=== PATIENT | male | born 1930 | race Caucasian/White ===

== ENCOUNTER 2018-04-13 15:02 | Inpatient (IN) | payer MEDICARE, OTHER ==
[~2018-04-13] VITALS: Ht 167.6 cm; Wt 71.2 kg
[~2018-04-13 15:02] MED LIST: ACET325T33 PO; ASPI-903 PO; BISA-57 PO; CLON-379 PO; CRAN400C PO; DIVA-75 PO; HYDR-3498 PO; LISI-471 PO; MAGN400O19 PO; MEMA5TAB PO; MULT-42 PO; OSCAL PO; TAMS-14 PO
[2018-04-13] MEDS ORDERED: SOD CHLORIDE 0.9% 500 ML IV STA (15:15)
[2018-04-13] MEDS ORDERED: BISA5TAB6 PO (15:42)
[2018-04-13] MEDS ORDERED: MAGN400O19 PO (15:43)
[2018-04-13] MEDS ORDERED: ACET325T33 PO (15:44)
[2018-04-13] MEDS ORDERED: NA P230E RC (15:45)
[2018-04-13] MEDS ORDERED: AMIO100T4 PO (15:46)
[2018-04-13] MEDS ORDERED: AMLO5TAB4 PO (15:48)
[2018-04-13] MEDS ORDERED: MULT-105 PO (15:49)
[2018-04-13] MEDS ORDERED: NITR0.4T32 SL (15:49)
[2018-04-13] MEDS ORDERED: VLP250480 PO ×2 (15:50→15:51)
[2018-04-13] MEDS ORDERED: HYDR50TA3 PO (15:52)
[2018-04-13] MEDS ORDERED: LISI40TA3 PO (15:53)
[2018-04-13] MEDS ORDERED: AMIO200T4 PO (15:54)
[2018-04-13] MEDS ORDERED: ASPI-817 PO (15:55)
[2018-04-13] MEDS ORDERED: CRAN425C6 PO (15:56)
[2018-04-13] MEDS ORDERED: TERA1CAP39 PO (15:57)
[2018-04-13] MEDS ORDERED: SACC250C PO (15:57)
[2018-04-13] MEDS ORDERED: MEMA5TAB PO (16:00)
[2018-04-13] MEDS ORDERED: FURO20TA3 PO (16:00)
[2018-04-13] MEDS ORDERED: CALC1TAB93 PO (16:01)
[2018-04-13] MEDS ORDERED: CEFEPIME 2GM/50 ML (PMX) 50 ML IVPB STA (16:40)
[2018-04-13] MEDS ORDERED: SODIUM CHLORIDE 0.9% 1L BAG IV* STA (16:40)
[2018-04-13] MEDS ORDERED: VANCOMYCIN 1 GM (PMX) 250 ML IVPB ONE (17:00)
[2018-04-13] MEDS ORDERED: SOD CHLORIDE 0.9% 1,000 ML IV SCH (18:12)
--- NOTE | 2018-04-13 18:16 | ERD ---
ER Documentation Chief Complaint Chief Complaint pollo ra from [facility] for aloc, low o2 sat, hypotensive HPI This is a 61 male who was sent from [facility] because he was having decreased mental status, low blood pressure and low O2 sats. However on arrival here the patient's blood pressure and O2 sats are normal. The patient has baseline dementia which is severe. When the ambulance picked him up from the center they stated that he is back to baseline mentally. There is no other history that we know of is far as recent illness cough GI symptoms etc. The patient is unable to give a history ROS All systems reviewed and are negative except as per history of present illness. Medications Home Meds Reported Medications Calcium Carbonate/Vitamin D3 (OYSTER SHELL 500 MG + VIT D TB) 1 Each Tablet, 1 EACH PO Q5PM, TAB 04/13/18 Memantine* (Namenda*) 5 Mg Tablet, 5 MG PO BID, #60 TAB 04/13/18 Furosemide* (Furosemide*) 20 Mg Tablet, 10 MG PO Q9AM, #60 TAB 04/13/18 Terazosin Hcl* (Hytrin*) 1 Mg Cap, 1 MG PO HS, CAP 04/13/18 Saccharomyces Boulardii* (Florastor*) 250 Mg Cap, 250 MG PO BID, CAP 04/13/18 Cranberry Extract (Cranberry) 425 Mg Capsule, 425 MG PO Q9AM, CAP 04/13/18 Aspirin* (Aspirin* EC) 81 Mg Tablet.dr, 81 MG PO DAILY, TAB 04/13/18 Amiodarone Hcl* (Amiodarone Hcl*) 200 Mg Tablet, 200 MG PO QAM, #30 TAB HOLD IF HR<60 04/13/18 Lisinopril* (Lisinopril*) 40 Mg Tablet, 40 MG PO DAILY, #30 TAB HOLD IF SBP<120 AND HR<60 04/13/18 Hydrochlorothiazide* (Hydrochlorothiazide*) 50 Mg Tab, 50 MG PO DAILY, #30 TAB 04/13/18 Valproic Acid* (Valproic Acid* Liq) 250 Mg/5 Ml Syrup, 5 ML PO Q9PM, ML 04/13/18 Valproic Acid* (Valproic Acid* Liq) 250 Mg/5 Ml Syrup, 2.5 ML PO Q9AM, ML 04/13/18 Nitroglycerin* (Nitroglycerin* SL) 0.4 Mg Tab.subl, 0.4 MG SL Q5MIN PRN for CHEST PAIN, BOTTLE 04/13/18 Multivitamin with Minerals (Multivitamins with Minerals) 1 Each Tablet, 1 EACH PO Q9AM, TAB 04/13/18 Amlodipine Besylate* (Norvasc*) 5 Mg Tablet, 5 MG PO Q9AM, TAB HOLD IF SBP<118 04/13/18 Amiodarone Hcl* (Amiodarone Hcl*) 100 Mg Tablet, 100 MG PO QHS, #30 TAB HOLD IF HR<60 04/13/18 Na Phos,M-B/Na Phos,Di-Ba (Fleet Enema Extra) 230 Ml Enema, 230 ML RC NEEDED, ENEMA 04/13/18 Acetaminophen* (Tylenol*) 325 Mg Tablet, 650 MG PO Q4H PRN for MILD PAIN LEVEL 1-3, TAB AND FEVER>100F 04/13/18 Magnesium Hydroxide* (Milk Of Magnesia*) 400 Mg/5 Ml Oral.susp, 30 ML PO QHS PRN for NEEDED, ML 04/13/18 Bisacodyl* (Bisacodyl*) 5 Mg Tablet.dr, 10 MG PO DAILY PRN for CONSTIPATION, TAB 04/13/18 Discontinued Reported Medications Acetaminophen* (Tylenol*) 325 Mg Tablet, 650 MG PO Q4H PRN for MILD PAIN LEVEL 1 -3, TAB 02/23/14 Magnesium Hydroxide* (Milk Of Magnesia*) 400 Mg/5 Ml Oral.susp, 30 ML PO QHS, ML 02/23/14 Hydrocodone Bit-Acetaminophen* ([place]*) 5-325 Mg Tab, 1 TAB PO Q4H PRN for PAIN, TAB 02/23/14 Bisacodyl* (Dulcolax*) 5 Mg Tablet.dr, 10 MG PO EVERY 2 DAYS PRN for CONSTIPATION, TAB 02/23/14 Clonidine Hcl* (Clonidine Hcl*) 0.1 Mg Tab, 0.1 MG PO Q6 PRN for ELEVATED SYSTOLIC BP, TAB 02/23/14 Divalproex Sodium* (Depakote ER*) 500 Mg Tabsr, 1000 MG PO DAILY, TAB.SA 02/23/14 Multivits, W-Ca,Fe,Oth Min* (Therapeutic M*) 1 Tab Tablet, 1 TAB PO DAILY, TAB 02/23/14 Calcium/Vitamin D (Oyster Shell W/Vit D) 1 Tab Tab, 1 TAB PO DAILY, TAB 02/23/14 Memantine* (Namenda*) 5 Mg Tablet, 5 MG PO BID, TAB 02/23/14 Lisinopril* (Lisinopril*) 20 Mg Tablet, 20 MG PO DAILY, TAB 02/23/14 Tamsulosin Hcl* (Flomax*) 0.4 Mg Cap.er.24h, 0.4 MG PO HS, CAP 02/23/14 Cranberry (Cranberry) 400 Mg Capsule, 405 MG PO DAILY, CAP 02/23/14 Clonidine Hcl* (Clonidine Hcl*) 0.1 Mg Tab, 0.1 MG PO BID, TAB 02/23/14 Aspirin* (Aspirin* Chew) 81 Mg Tab.chew, 81 MG PO DAILY, TAB.CHEW 02/23/14 Allergies Allergies: Coded Allergies: No Known Allergy (Unverified , 04/13/18) PMhx/Soc History of Surgery: No Anesthesia Reaction: No Hx Neurological Disorder: Yes (psychosis) Hx Respiratory Disorders: Yes (COPD) Hx Cardiac Disorders: Yes (HTN) Hx Psychiatric Problems: Yes (psychosis) Hx Miscellaneous Medical Probl: Yes (COPD, dementia) Hx Alcohol Use: No Hx Substance Use: No Hx Tobacco Use: No Smoking Status: Never smoker FmHx Family History: No coronary disease Physical Exam Vitals Vital Signs Date Temp Pulse Resp B/P (MAP) Pulse Ox O2 O2 Flow FiO2 Time Delivery Rate 04/13/18 Nasal 17:30 Cannula 04/13/18 98.3 85 19 146/74 100 15:07 (98) 04/13/18 98.3 83 19 143/75 95 Room Air 15:07 (97) Physical Exam Const: Well-developed, well-nourished Head: Atraumatic, normocephalic Eyes: Normal Conjunctiva, PERRLA, EOMI, normal sclera, no nystagmus ENT: Normal External Ears, Nose and Mouth, dry mucus membranes. Neck: Full range of motion. No meningismus, no lymphadenopathy. Resp: Clear to auscultation bilaterally, no wheezing, rhonchi, rales Cardio: Regular rate and rhythm, no murmurs, S1 S2 present Abd: Soft, non tender x 4, non distended. Normal bowel sounds, no guarding or rebound, no pulsitile abdominal masses or bruits Skin: No petechiae or rashes, no ecchymosis , no maculopapular rash, decubitus ulcers on his heels and buttocks Back: No midline or flank tenderness Ext: No cyanosis, or edema, FROM x 4, normal inspection, neurovascularly intact x 4 Neur: [Awake and alert, difficult to assess, moves all fours Psych: Unable to assess Result Diagram: 04/13/18 1536 04/13/18 1535 Results 24 hrs Laboratory Tests Test 04/13/18 15:35 04/13/18 15:36 04/13/18 17:20 04/13/18 17:28 Sodium Level 159 mmol/L Potassium Level 4.7 mmol/L Chloride Level 121 mmol/L Carbon Dioxide 26 mmol/L Level Anion Gap 12 Blood Urea 144 mg/dl Nitrogen Creatinine 5.41 mg/dl Est Glomerular mL/min Filtrat Rate mL/min Glucose Level 295 mg/dl Calcium Level 9.2 mg/dl Total Bilirubin 0.2 mg/dl Direct 0.00 mg/dl Bilirubin Indirect 0.2 mg/dl Bilirubin Aspartate Amino 64 IU/L Transf (AST/SGO T) Alanine 43 IU/L Aminotransferas e (ALT/SGPT) Alkaline 100 IU/L Phosphatase Total Protein 7.0 g/dl Albumin 3.5 g/dl Globulin 3.50 g/dl Albumin/Globuli 1.00 n Ratio White Blood 16.7 10^3/ul Count Red Blood Count 4.17 10^6/ul Hemoglobin 12.7 g/dl Hematocrit 40.5 % Mean 97.1 fl Corpuscular Volume Mean 30.5 pg Corpuscular Hemoglobin Mean 31.4 g/dl Corpuscular Hemoglobin Conc ent Red Cell 14.3 % Distribution Width Platelet Count 378 10^3/UL Mean Platelet 11.8 fl Volume Immature 1.500 % Granulocytes % Neutrophils % 81.3 % Lymphocytes % 7.9 % Monocytes % 7.2 % Eosinophils % 1.3 % Basophils % 0.8 % Nucleated Red 0.0 /100WBC Blood Cells % Immature 0.250 10^3/ul Granulocytes # Neutrophils # 13.6 10^3/ul Lymphocytes # 1.3 10^3/ul Monocytes # 1.2 10^3/ul Eosinophils # 0.2 10^3/ul Basophils # 0.1 10^3/ul Nucleated Red 0.0 10^3/ul Blood Cells # Urine Color YELLOW Urine Clarity TURBID Urine pH 5.0 Urine Specific 1.012 [place] Urine Ketones NEGATIVE mg/dL Urine Nitrite NEGATIVE mg/dL Urine Bilirubin NEGATIVE mg/dL Urine NEGATIVE mg/dL Urobilinogen Urine Leukocyte 3+ Joni/ul Esterase Urine 142 /HPF Microscopic RBC Urine > 182 /HPF Microscopic WBC Urine Squamous FEW /HPF Epithelial Cell s Urine Bacteria MANY /HPF Urine 3+ mg/dL Hemoglobin Urine Glucose NEGATIVE mg/dL Urine Total 2+ mg/dl Protein POC Venous 1.7 mmol/L Lactate Current Medications Medications Dose Sig/Toby Start Time Status Last (Trade) Ordered Route PRN Stop Time Admin Dose Reason Admin Sodium 500 ml @ Q1H STAT 04/13/18 DC 04/13/18 Chloride 500 mls/hr IV 15:15 16:00 04/13/18 16:14 Sodium 2,460 ml BOLUS OVER 2 04/13/18 DC 04/13/18 Chloride HOURS STAT 16:40 17:12 (NS) IV* 04/13/18 16:42 Cefepime HCl 50 ml @ ONCE STAT 04/13/18 DC 04/13/18 100 mls/hr IVPB 16:40 17:54 04/13/18 17:09 Vancomycin 250 ml @ ONCE ONCE 04/13/18 04/13/18 HCl 125 mls/hr IVPB 17:00 18:00 04/13/18 18:59 Procedures/MDM MR #: [id number] DOS: 04/13/18 1515 Ordering MD: BEVERLY ARRIAZA DO Location: E/R Room/Bed: PROCEDURE: XR Chest. CLINICAL INDICATION: Pain TECHNIQUE: Frontal chest x-ray was obtained. COMPARISON: Chest x-ray February 23, 2014 FINDINGS: The heart is not enlarged. Mediastinum is not widened. Calcified plaque is seen in the wall of the aorta. No hilar masses seen. Lungs are clear of any infiltrates. There is no effusion or pneumothorax. The osseous structures appear normal. IMPRESSION: No evidence for active cardiopulmonary disease. .Ricardo Rodriguez MD, MD Date Time Electronically viewed and signed by .Ricardo Rodriguez MD, MD on 04/13/2018 15:51 .A/ CC: BEVERLY ARRIAZA DO [id number] Patient had a Dia placed and had yellow-green urine. The patient is going to have a urinary tract infection however waiting for urinalysis results. Patient has a normal lactic acid level which is 1.6 and not septic at this time. He got sepsis fluid protocol as well as IV antibiotics. Patient sodium is 159. We will admit to the hospital for hyponatremia, urinary tract infection, decubitus ulcers mild leukocytosis Departure Diagnosis: Primary Impression: Hypernatremia Additional Impressions: Urinary tract infection Urinary tract infection type: site unspecified Hematuria presence: without hematuria Qualified Codes: N39.0 - Urinary tract infection, site not specified Leukocytosis Leukocytosis type: unspecified Qualified Codes: D72.829 - Elevated white blood cell count, unspecified Condition: Stable BEVERLY ARRIAZA DO Apr 13, 2018 18:16
--- NOTE | 2018-04-13 18:19 | HP ---
Date/Time of Note Date/Time of Note DATE: 04/13/18 TIME: 18:19 Assessment/Plan VTE Prophylaxis SCD applied (from Nsg): Yes Pharmacological prophylaxis: heparin Lines/Catheters IV Catheter Type (from Nrsg): Saline Lock Urinary Cath still in place: Yes Reason Cath still needed: urinary retention Assessment/Plan Assessment/Plan 1. Acute toxic encephalopathy - patient has baseline dementia and per EMS at baseline, but patient not responding to any commands and simply moaning - Most likely secondary to UTI - will monitor for improvement in mentation 2. UTI - UA+ and urine cultures sent - urine foul smelling and purulent in nature - IV antibiotics on board and IVF 3. Leukocytosis - secondary to #2 4. LOVE, most likely prerenal vs ATN vs Obstruction - patient baseline Cr 02/2018 was 1.0 - Cash in place draining purulent urine - IVF fluids on board and will monitor for improvement in function - Renal US ordered to assess for obstruction - Avoid nephrotoxic agents and if no improvement in renal function after fluids, will consult nephrology 5. Hypernatremia, hypovolemic - Na from 02/2018 was 134, now 159. Will give free water and monitor for improvement - was on Lasix and hctz as outpatient which may be contributing to dehydration 6. h/o DM - last A1c 02/2018 was 6.4 - ISS and accuchecks 7. afib - on amio as outpt. will resume when tolerating PO intake. HR controlled for now 8. HTN - on lasix, hctz, and lisinopril - will hold in setting of LOVE - PRN hydralazine if needed 9. Dementia/Alzheimer - on Namenda as outpatient 10. BPH - on terazosin - Cash placed in ED 11. psychosis - on valproic acid BID 12. Diet - NPO for now until more awake - speech eval 13. DVT ppx - Heparin 14. Gi ppx - PPI 15. Code status - Documents from CT reveal pt is Full Code 16. Disposition - Admit to telemetry for Acute toxic encephalopathy secondary to UTI Result Diagram: 04/13/18 1536 04/13/18 1535 Results 24hrs Laboratory Tests Test 04/13/18 15:35 04/13/18 15:36 04/13/18 17:20 04/13/18 17:28 Sodium Level 159 H Potassium Level 4.7 Chloride Level 121 H Carbon Dioxide 26 Level Anion Gap 12 Blood Urea 144 H Nitrogen Creatinine 5.41 H Est Glomerular Filtrat Rate mL/min Glucose Level 295 H Calcium Level 9.2 Total Bilirubin 0.2 Direct Bilirubin 0.00 Indirect 0.2 Bilirubin Aspartate Amino 64 H Transf (AST/SGOT ) Alanine 43 Aminotransferase (ALT/SGPT) Alkaline 100 Phosphatase Total Protein 7.0 Albumin 3.5 Globulin 3.50 H Albumin/Globulin 1.00 Ratio White Blood 16.7 #H Count Red Blood Count 4.17 L Hemoglobin 12.7 L Hematocrit 40.5 L Mean Corpuscular 97.1 Volume Mean Corpuscular 30.5 Hemoglobin Mean Corpuscular 31.4 L Hemoglobin Janette nt Red Cell 14.3 Distribution Width Platelet Count 378 Mean Platelet 11.8 #H Volume Immature 1.500 H Granulocytes % Neutrophils % 81.3 H Lymphocytes % 7.9 L Monocytes % 7.2 Eosinophils % 1.3 Basophils % 0.8 Nucleated Red 0.0 Blood Cells % Immature 0.250 H Granulocytes # Neutrophils # 13.6 H Lymphocytes # 1.3 Monocytes # 1.2 H Eosinophils # 0.2 Basophils # 0.1 Nucleated Red 0.0 Blood Cells # Urine Color YELLOW Urine Clarity TURBID A Urine pH 5.0 Urine Specific 1.012 [place] Urine Ketones NEGATIVE Urine Nitrite NEGATIVE Urine Bilirubin NEGATIVE Urine NEGATIVE Urobilinogen Urine Leukocyte 3+ H Esterase Urine 142 H Microscopic RBC Urine > 182 H Microscopic WBC Urine Squamous FEW Epithelial Cells Urine Bacteria MANY A Urine Hemoglobin 3+ H Urine Glucose NEGATIVE Urine Total 2+ H Protein POC Venous 1.7 Lactate HPI/ROS Admit Date/Time Admit Date/Time 04/13/18 1830 Hx of Present Illness 87 yo M PMH COPD, Alzheimerz, atrial fibrillation, BPH, diabetes mellitus, dementia, psychosis, and HTN presented to ED from half-way for altered mental status. Patient is a poor historian but has baseline dementia and usually is not able to voice his needs. Per EMS, he is at his baseline. History obtained from ED physician as well as NH charge. Patient is a Full Code as well. Patient found with dehydration at time of presentation and foul smelling urine that appears purulent yellow/green. ROS All 12 systems reviewed and pertinent positives as per HPI. All others negative. Unable to obtain ROS due to altered mental status. PMH/Family/Social Past Medical History Medical History: diabetes, hypertension, other (COPD, atrial fibrillation, BPH, Alzheimers, dementia) Medications Current Medications Vancomycin HCl 250 ml @ 125 mls/hr ONCE ONCE IVPB Last administered on 04/13/18at 18:00; Admin Dose 125 MLS/HR; Start 04/13/18 at 17:00; Stop 04/13/18 at 18:59 Sodium Chloride 1,000 ml @ 80 mls/hr [id number] IV ; Start 04/13/18 at 18:12; Stop 04/14/18 at 06:41 Ondansetron HCl (Zofran Inj) 4 mg ER BRIDGE PRN IV NAUSEA AND/OR VOMITING; Start 04/13/18 at 18:30; Stop 04/14/18 at 18:29 Acetaminophen (Tylenol Tab) 650 mg ER BRIDGE PRN PO MILD PAIN(1-3)OR ELEVATED TEMP; Start 04/13/18 at 18:30; Stop 04/14/18 at 18:29 Coded Allergies: No Known Allergy (Unverified , 04/13/18) Past Surgical History Past Surgical Hx: other (unknown) Family History Significant Family History: other (noncontributory) Social History Alcohol Use: none Smoking Status: Never smoker Drug Use: none Exam/Review of Systems Vital Signs Vitals Vital Signs Date Temp Pulse Resp B/P (MAP) Pulse Ox O2 O2 Flow FiO2 Time Delivery Rate 04/13/18 Nasal 17:30 Cannula 04/13/18 98.3 85 19 146/74 100 15:07 (98) Exam Exam General: No acute distress. moans to questions and touch, foul smelling urine. not following commands HEENT: Atraumatic, normocephalic. The pupils are equal, round and reactive. Extraocular motor are intact Neck: Supple with full range of motion. No rigidity or meningismus Chest: Nontender Lungs: clear bilaterally, nonlabored breathing, diminished diffusely without wheezing or rhonchi Heart: S1, S2, regular rate and rhythm. no murmurs Abdomen: Soft , nontender, nondistended , bowel sounds are present. No guarding no rebound tenderness , No masses or organomegaly. No costovertebral temporal angle mass : cash in place with purulent fluid in cash tube Extremities: no edema, cyanosis, clubbing Neurologic: Unable to assess, baseline severe dementia Skin: heels wrapped in gauze bilaterally without discharge or drainage. no rashes appreciated. Additional Comments Home medications reviewed IMAGING: PROCEDURE: XR Chest. CLINICAL INDICATION: Pain TECHNIQUE: Frontal chest x-ray was obtained. COMPARISON: Chest x-ray February 23, 2014 FINDINGS: The heart is not enlarged. Mediastinum is not widened. Calcified plaque is seen in the wall of the aorta. No hilar masses seen. Lungs are clear of any infiltrates. There is no effusion or pneumothorax. The osseous structures appear normal. IMPRESSION: No evidence for active cardiopulmonary disease. .Ricardo Rodriguez MD, MD Date Time Electronically viewed and signed by .Ricardo Rodriguez MD, MD on 04/13/2018 15:51 JOHN CORRAL MD Apr 13, 2018 18:19
[2018-04-13] MEDS ORDERED: ACETAMINOPHEN 650 MG SUPP PR PRN (18:30)
[2018-04-13] MEDS ORDERED: NACL 0.9% 3 ML SYG IV SCH (18:30)
[2018-04-13] MEDS ORDERED: ACETAMINOPHEN 325 MG TAB PO PRN (18:30)
[2018-04-13] MEDS ORDERED: ONDANSETRON 4 MG INJ IV PRN ×2 (18:30)
[2018-04-13] MEDS ORDERED: hydrALAzine 20 MG INJ IV PRN (19:00)
[2018-04-13] MEDS ORDERED: GLUCOSE GEL 15 GRAM TUBE PO PRN ×2 (19:30)
[2018-04-13] MEDS ORDERED: GLUCOSE GEL 15 GRAM TUBE BUCCAL PRN (19:30)
[2018-04-13] MEDS ORDERED: DEXTROSE 50% 50 ML SYRINGE IV PRN ×2 (19:30)
[2018-04-13] MEDS ORDERED: GLUCAGON 1 MG INJ IM PRN (19:30)
[2018-04-13] MEDS ORDERED: HEPARIN 5,000 UNIT/1 ML VIAL SC SCH (21:00)
[2018-04-13] MEDS ORDERED: CEFEPIME 2GM/50 ML (PMX) 50 ML IVPB SCH (21:00)
[2018-04-13] MEDS: INSULIN ASPART [NOVOLOG] 3 ML PEN SC SCH (22:08)
[2018-04-13 22:26] VITALS: PULSE 80
[2018-04-14] VITALS (11 sets, daily range): BP systolic 99–154; BP diastolic 52–79; PULSE 69–82; RESP 17–19
[2018-04-14] MEDS: DEXTROSE 5% 1,000 ML IV SCH ×4 (00:22→22:46)
[2018-04-14] MEDS: INSULIN ASPART [NOVOLOG] 3 ML PEN SC SCH ×6 (02:13→20:46)
[2018-04-14] MEDS: PANTOPRAZOLE 40 MG INJ IV SCH (06:40)
--- NOTE | 2018-04-14 08:51 | PN ---
Date/Time of Note Date/Time of Note DATE: 04/14/18 TIME: 08:51 Assessment/Plan VTE Prophylaxis SCD applied (from Nsg): Yes Pharmacological prophylaxis: heparin Lines/Catheters IV Catheter Type (from Nrsg): Saline Lock Urinary Cath still in place: Yes Reason Cath still needed: urinary retention Assessment/Plan Assessment/Plan 1. Acute toxic encephalopathy - patient more awake this am and moaning to touch and voice - Most likely secondary to UTI and bacteremia - will monitor for improvement in mentation 2. Sepsis secondary to UTI and bacteremia - Urine cultures growing gram neg rods - Blood cultures growing gram + cocci - ECHO ordered - ID consulted for antibiotic management - LA normalized - IV antibiotics on board and IVF 3. LOVE, most likely prerenal vs ATN vs Obstruction - Mild improvement in renal function but still severely impaired - Nephrology consulted and discussed with Dr. Crane, covering for Dr Song group - patient baseline Cr 02/2018 was 1.0 - IVF fluids on board and will monitor for improvement in function - Renal US results noted 4. Hypernatremia, hypovolemic - Na from 02/2018 was 134, now 158. Will continue on free water and monitor for improvement - was on Lasix and hctz as outpatient which may be contributing to dehydration 5. h/o DM - last A1c 02/2018 was 6.4 - Sugars very elevated which is most likely from D5 - ISS and accuchecks 6. afib - on amio as outpt. will resume when tolerating PO intake. HR controlled for now 7. HTN - on lasix, hctz, and lisinopril - will hold in setting of LOVE - PRN hydralazine if needed 8. Dementia/Alzheimer - on Namenda as outpatient 9. BPH - on terazosin - Cash placed in ED 10. psychosis - on valproic acid BID 11. Disposition - ID consulted for antibiotic management for UTI and bacteremia - Nephrology on board for management of LOVE and hypernatremia Result Diagram: 04/14/1851704/14/1818 Results 24hrs Laboratory Tests Test 04/13/18 15:35 04/13/18 15:36 04/13/18 17:20 04/13/18 17:28 Sodium Level 159 H Potassium Level 4.7 Chloride Level 121 H Carbon Dioxide 26 Level Anion Gap 12 Blood Urea 144 H Nitrogen Creatinine 5.41 H Est Glomerular Filtrat Rate mL/min Glucose Level 295 H Calcium Level 9.2 Total Bilirubin 0.2 Direct Bilirubin 0.00 Indirect 0.2 Bilirubin Aspartate Amino 64 H Transf (AST/SGOT ) Alanine 43 Aminotransferase (ALT/SGPT) Alkaline 100 Phosphatase Total Protein 7.0 Albumin 3.5 Globulin 3.50 H Albumin/Globulin 1.00 Ratio White Blood 16.7 #H Count Red Blood Count 4.17 L Hemoglobin 12.7 L Hematocrit 40.5 L Mean Corpuscular 97.1 Volume Mean Corpuscular 30.5 Hemoglobin Mean Corpuscular 31.4 L Hemoglobin Janette nt Red Cell 14.3 Distribution Width Platelet Count 378 Mean Platelet 11.8 #H Volume Immature 1.500 H Granulocytes % Neutrophils % 81.3 H Lymphocytes % 7.9 L Monocytes % 7.2 Eosinophils % 1.3 Basophils % 0.8 Nucleated Red 0.0 Blood Cells % Immature 0.250 H Granulocytes # Neutrophils # 13.6 H Lymphocytes # 1.3 Monocytes # 1.2 H Eosinophils # 0.2 Basophils # 0.1 Nucleated Red 0.0 Blood Cells # Urine Color YELLOW Urine Clarity TURBID A Urine pH 5.0 Urine Specific 1.012 [place] Urine Ketones NEGATIVE Urine Nitrite NEGATIVE Urine Bilirubin NEGATIVE Urine NEGATIVE Urobilinogen Urine Leukocyte 3+ H Esterase Urine 142 H Microscopic RBC Urine > 182 H Microscopic WBC Urine Squamous FEW Epithelial Cells Urine Bacteria MANY A Urine Hemoglobin 3+ H Urine Glucose NEGATIVE Urine Total 2+ H Protein POC Venous 1.7 Lactate Test 04/13/18 22:05 04/13/18 23:16 04/14/18 01:36 04/14/18 05:18 Bedside Glucose 273 H 262 H Lactic Acid 2.4 *H Level White Blood 20.8 #H Count Red Blood Count 4.09 L Hemoglobin 12.5 L Hematocrit 40.2 L Mean Corpuscular 98.3 Volume Mean Corpuscular 30.6 Hemoglobin Mean Corpuscular 31.1 L Hemoglobin Janette nt Red Cell 14.4 Distribution Width Platelet Count 364 Mean Platelet 12.0 H Volume Immature 2.300 H Granulocytes % Neutrophils % 85.1 H Lymphocytes % 4.6 L Monocytes % 7.3 Eosinophils % 0.3 Basophils % 0.4 Nucleated Red 0.0 Blood Cells % Immature 0.480 H Granulocytes # Neutrophils # 17.6 H Lymphocytes # 1.0 Monocytes # 1.5 H Eosinophils # 0.1 Basophils # 0.1 Nucleated Red 0.0 Blood Cells # Sodium Level 158 H Potassium Level 4.5 Chloride Level 125 H Carbon Dioxide 24 Level Anion Gap 9 Blood Urea 144 H Nitrogen Creatinine 5.12 H Est Glomerular Filtrat Rate mL/min Glucose Level 300 H Calcium Level 8.9 Magnesium Level 2.5 Total Bilirubin 0.2 Direct Bilirubin 0.00 Indirect 0.2 Bilirubin Aspartate Amino 70 H Transf (AST/SGOT ) Alanine 39 Aminotransferase (ALT/SGPT) Alkaline 92 Phosphatase Total Protein 6.5 Albumin 3.2 L Globulin 3.30 H Albumin/Globulin 0.96 Ratio Test 04/14/18 05:47 04/14/18 07:47 04/14/18 08:18 Bedside Glucose 344 H 335 H Lactic Acid 2.0 Level Subjective 24 Hr Interval Summary Free Text/Dictation Patient more awake this am but only moaning to questions. Yelps when lower extremities moved. Urine yellow this am with less purulent discharge. Exam/Review of Systems Vital Signs Vitals Vital Signs Date Temp Pulse Resp B/P (MAP) Pulse Ox O2 O2 Flow FiO2 Time Delivery Rate 04/14/18 72 08:50 04/14/18 98.0 18 122/69 93 07:43 (86) 04/13/18 Room Air 22:02 Intake and Output 04/13/18 04/13/18 04/14/18 1515:00 23:00 07:00 IntakeIntake Total 700 ml BalanceBalance 700 ml Exam General: No acute distress. moans to questions. not following commands Neck: Supple Chest: Nontender Lungs: clear bilaterally, nonlabored breathing, diminished diffusely without wheezing or rhonchi Heart: S1, S2, regular rate and rhythm. no murmurs Abdomen: Soft , nontender, nondistended , bowel sounds are present. No guarding no rebound tenderness : cash in place Extremities: no edema, cyanosis, clubbing Neurologic: Unable to assess, baseline severe dementia Skin: heel dressing in place. no rashes appreciated. Medications Medications Current Medications Acetaminophen (Tylenol Tab) 650 mg ER BRIDGE PRN PO MILD PAIN(1-3)OR ELEVATED TEMP; Start 04/13/18 at 18:30; Stop 04/14/18 at 18:29 IV Flush (NS 3 ml) 3 ml PER PROTOCOL IV ; Start 04/13/18 at 18:30 Ondansetron HCl (Zofran Inj) 4 mg Q6H PRN IV NAUSEA AND/OR VOMITING; Start 04/13/18 at 18:30 Acetaminophen (Tylenol Supp) 650 mg Q6H PRN MD PAIN LEVEL 1-3 OR FEVER; Start 04/13/18 at 18:30 Pantoprazole (Protonix Iv) 40 mg DAILY@06 IV Last administered on 04/14/18at 06:40; Admin Dose 40 MG; Start 04/14/18 at 06:00 Dextrose 1,000 ml @ 100 mls/hr Q10H IV Last administered on 04/14/18at 00:22; Admin Dose 100 MLS/HR; Start 04/13/18 at 18:30 Cefepime HCl 50 ml @ 100 mls/hr Q24H IVPB ; Start 04/14/18 at 18:00 Heparin Sodium (Porcine) (Heparin (5000 Units/1ml)) 5,000 unit BID SC ; Start 04/13/18 at 21:00; Status Hold Insulin Aspart (Novolog Insulin Pen) NOVOLOG *MILD* ALGORI... Q4 SC Last administered on 04/14/18at 08:21; Admin Dose 5 UNIT; Start 04/13/18 at 21:00 Hydralazine HCl (Apresoline) 10 mg Q4H PRN IV SBP >170; Start 04/13/18 at 19:00 Miscellaneous Information 1 ea NOTE XX ; Start 04/13/18 at 19:30 Glucose (Glutose) 15 gm Q15M PRN PO DECREASED GLUCOSE; Start 04/13/18 at 19:30 Glucose (Glutose) 22.5 gm Q15M PRN PO DECREASED GLUCOSE; Start 04/13/18 at 19:30 Dextrose (D50w Syringe) 25 ml Q15M PRN IV DECREASED GLUCOSE; Start 04/13/18 at 19:30 Dextrose (D50w Syringe) 50 ml Q15M PRN IV DECREASED GLUCOSE; Start 04/13/18 at 19:30 Glucagon (Glucagen) 1 mg Q15M PRN IM DECREASED GLUCOSE; Start 04/13/18 at 19:30 Glucose (Glutose) 15 gm Q15M PRN BUCCAL DECREASED GLUCOSE; Start 04/13/18 at 19:30 Influenza Virus Vaccine Quadrival (Fluzone) 0.5 ml ONCE ONCE IM* ; Start 04/15/18 at 10:00; Stop 04/15/18 at 10:01 JOHN CORRAL MD Apr 14, 2018 08:51
[2018-04-14] MEDS ORDERED: ENOXAPARIN 30 MG/0.3 ML SYG SC SCH (09:00)
--- NOTE | 2018-04-14 10:51 | CONS ---
Date/Time of Note Date/Time of Note DATE: 04/14/18 TIME: 10:48 Assessment/Plan Assessment/Plan Hospital Course ams sec to uti contributed by hypernatremia dehydration obstructive4 uropathy suspected bloody urine noted on placement of cash cont ivf monitor labs am npo at this time [facility] pending Result Diagram: 04/14/18 0518 04/14/18 0518 Results 24hrs Laboratory Tests Test 04/13/18 15:35 04/13/18 15:36 04/13/18 17:20 04/13/18 17:28 Sodium Level 159 H Potassium Level 4.7 Chloride Level 121 H Carbon Dioxide 26 Level Anion Gap 12 Blood Urea 144 H Nitrogen Creatinine 5.41 H Est Glomerular Filtrat Rate mL/min Glucose Level 295 H Calcium Level 9.2 Total Bilirubin 0.2 Direct Bilirubin 0.00 Indirect 0.2 Bilirubin Aspartate Amino 64 H Transf (AST/SGOT ) Alanine 43 Aminotransferase (ALT/SGPT) Alkaline 100 Phosphatase Total Protein 7.0 Albumin 3.5 Globulin 3.50 H Albumin/Globulin 1.00 Ratio White Blood 16.7 #H Count Red Blood Count 4.17 L Hemoglobin 12.7 L Hematocrit 40.5 L Mean Corpuscular 97.1 Volume Mean Corpuscular 30.5 Hemoglobin Mean Corpuscular 31.4 L Hemoglobin Janette nt Red Cell 14.3 Distribution Width Platelet Count 378 Mean Platelet 11.8 #H Volume Immature 1.500 H Granulocytes % Neutrophils % 81.3 H Lymphocytes % 7.9 L Monocytes % 7.2 Eosinophils % 1.3 Basophils % 0.8 Nucleated Red 0.0 Blood Cells % Immature 0.250 H Granulocytes # Neutrophils # 13.6 H Lymphocytes # 1.3 Monocytes # 1.2 H Eosinophils # 0.2 Basophils # 0.1 Nucleated Red 0.0 Blood Cells # Urine Color YELLOW Urine Clarity TURBID A Urine pH 5.0 Urine Specific 1.012 Left Hand Urine Ketones NEGATIVE Urine Nitrite NEGATIVE Urine Bilirubin NEGATIVE Urine NEGATIVE Urobilinogen Urine Leukocyte 3+ H Esterase Urine 142 H Microscopic RBC Urine > 182 H Microscopic WBC Urine Squamous FEW Epithelial Cells Urine Bacteria MANY A Urine Hemoglobin 3+ H Urine Glucose NEGATIVE Urine Total 2+ H Protein POC Venous 1.7 Lactate Test 04/13/18 22:05 04/13/18 23:16 04/14/18 01:36 12/30/18 05:18 Bedside Glucose 273 H 262 H Lactic Acid 2.4 *H Level White Blood 20.8 #H Count Red Blood Count 4.09 L Hemoglobin 12.5 L Hematocrit 40.2 L Mean Corpuscular 98.3 Volume Mean Corpuscular 30.6 Hemoglobin Mean Corpuscular 31.1 L Hemoglobin Janette nt Red Cell 14.4 Distribution Width Platelet Count 364 Mean Platelet 12.0 H Volume Immature 2.300 H Granulocytes % Neutrophils % 85.1 H Lymphocytes % 4.6 L Monocytes % 7.3 Eosinophils % 0.3 Basophils % 0.4 Nucleated Red 0.0 Blood Cells % Immature 0.480 H Granulocytes # Neutrophils # 17.6 H Lymphocytes # 1.0 Monocytes # 1.5 H Eosinophils # 0.1 Basophils # 0.1 Nucleated Red 0.0 Blood Cells # Sodium Level 158 H Potassium Level 4.5 Chloride Level 125 H Carbon Dioxide 24 Level Anion Gap 9 Blood Urea 144 H Nitrogen Creatinine 5.12 H Est Glomerular Filtrat Rate mL/min Glucose Level 300 H Hemoglobin A1c 6.5 H Osmolality 387 H Calcium Level 8.9 Magnesium Level 2.5 Total Bilirubin 0.2 Direct Bilirubin 0.00 Indirect 0.2 Bilirubin Aspartate Amino 70 H Transf (AST/SGOT ) Alanine 39 Aminotransferase (ALT/SGPT) Alkaline 92 Phosphatase Total Protein 6.5 Albumin 3.2 L Globulin 3.30 H Albumin/Globulin 0.96 Ratio Test 04/14/18 05:47 04/14/18 07:47 04/14/18 08:18 Bedside Glucose 344 H 335 H Lactic Acid 2.0 Level Consultation Date/Type/Reason Admit Date/Time 04/13/18 1830 Subjective hx not possible: pt non-verbal Eyes: no complaints Past Medical History Medical History: diabetes, hypertension, other (COPD, atrial fibrillation, BPH, Alzheimers, dementia) Medications Current Medications IV Flush (NS 3 ml) 3 ml PER PROTOCOL IV ; Start 04/13/18 at 18:30 Ondansetron HCl (Zofran Inj) 4 mg Q6H PRN IV NAUSEA AND/OR VOMITING; Start 04/13/18 at 18:30 Acetaminophen (Tylenol Supp) 650 mg Q6H PRN [place] PAIN LEVEL 1-3 OR FEVER; Start 04/13/18 at 18:30 Pantoprazole (Protonix Iv) 40 mg DAILY@06 IV Last administered on 04/14/18at 06:40; Admin Dose 40 MG; Start 04/14/18 at 06:00 Dextrose 1,000 ml @ 100 mls/hr Q10H IV Last administered on 04/14/18at 10:22; Admin Dose 100 MLS/HR; Start 04/13/18 at 18:30 Cefepime HCl 50 ml @ 100 mls/hr Q24H IVPB ; Start 04/14/18 at 18:00 Heparin Sodium (Porcine) (Heparin (5000 Units/1ml)) 5,000 unit BID SC ; Start 04/13/18 at 21:00; Status Hold Insulin Aspart (Novolog Insulin Pen) NOVOLOG *MILD* ALGORI... Q4 SC Last administered on 04/14/18at 08:21; Admin Dose 5 UNIT; Start 04/13/18 at 21:00 Hydralazine HCl (Apresoline) 10 mg Q4H PRN IV SBP >170; Start 04/13/18 at 19:00 Miscellaneous Information 1 ea NOTE XX ; Start 04/13/18 at 19:30 Glucose (Glutose) 15 gm Q15M PRN PO DECREASED GLUCOSE; Start 04/13/18 at 19:30 Glucose (Glutose) 22.5 gm Q15M PRN PO DECREASED GLUCOSE; Start 04/13/18 at 19:30 Dextrose (D50w Syringe) 25 ml Q15M PRN IV DECREASED GLUCOSE; Start 04/13/18 at 19:30 Dextrose (D50w Syringe) 50 ml Q15M PRN IV DECREASED GLUCOSE; Start 04/13/18 at 19:30 Glucagon (Glucagen) 1 mg Q15M PRN IM DECREASED GLUCOSE; Start 04/13/18 at 19:30 Glucose (Glutose) 15 gm Q15M PRN BUCCAL DECREASED GLUCOSE; Start 04/13/18 at 19:30 Influenza Virus Vaccine Quadrival (Fluzone) 0.5 ml ONCE ONCE IM* ; Start 04/15/18 at 10:00; Stop 04/15/18 at 10:01 Insulin Glargine (Lantus) 11 units DAILY@0800 SC ; Start 04/14/18 at 10:30 Allergies: Coded Allergies: No Known Allergy (Unverified , 04/13/18) Past Surgical History Past Surgical Hx: other (unknown) Social History Alcohol Use: none Smoking Status: Unknown if ever smoked Drug Use: none Exam/Review of Systems Vital Signs Vitals Vital Signs Date Temp Pulse Resp B/P (MAP) Pulse Ox O2 O2 Flow FiO2 Time Delivery Rate 04/14/18 72 08:50 04/14/18 98.0 18 122/69 93 07:43 (86) 04/13/18 Room Air 22:02 Intake and Output 04/13/18 04/13/18 04/14/18 1515:00 23:00 07:00 IntakeIntake Total 700 ml BalanceBalance 700 ml Exam Constitutional: non-verbal Head: normocephalic, atraumatic Eyes: nl conjunctiva ENMT: nl external ears & nose, mucosa pink and moist Neck: supple, non-tender Respiratory: clear to auscultation, normal air movement Cardiovascular: regular rate and rhythm Gastrointestinal: soft, non-tender Genitourinary - Male: other Extremities: normal pulses Neurological: lethargic Medications Medications Current Medications IV Flush (NS 3 ml) 3 ml PER PROTOCOL IV ; Start 04/13/18 at 18:30 Ondansetron HCl (Zofran Inj) 4 mg Q6H PRN IV NAUSEA AND/OR VOMITING; Start 04/13/18 at 18:30 Acetaminophen (Tylenol Supp) 650 mg Q6H PRN DC PAIN LEVEL 1-3 OR FEVER; Start 04/13/18 at 18:30 Pantoprazole (Protonix Iv) 40 mg DAILY@06 IV Last administered on 04/14/18at 06:40; Admin Dose 40 MG; Start 04/14/18 at 06:00 Dextrose 1,000 ml @ 100 mls/hr Q10H IV Last administered on 04/14/18at 10:22; Admin Dose 100 MLS/HR; Start 04/13/18 at 18:30 Cefepime HCl 50 ml @ 100 mls/hr Q24H IVPB ; Start 04/14/18 at 18:00 Heparin Sodium (Porcine) (Heparin (5000 Units/1ml)) 5,000 unit BID SC ; Start 04/13/18 at 21:00; Status Hold Insulin Aspart (Novolog Insulin Pen) NOVOLOG *MILD* ALGORI... Q4 SC Last administered on 04/14/18at 08:21; Admin Dose 5 UNIT; Start 04/13/18 at 21:00 Hydralazine HCl (Apresoline) 10 mg Q4H PRN IV SBP >170; Start 04/13/18 at 19:00 Miscellaneous Information 1 ea NOTE XX ; Start 04/13/18 at 19:30 Glucose (Glutose) 15 gm Q15M PRN PO DECREASED GLUCOSE; Start 04/13/18 at 19:30 Glucose (Glutose) 22.5 gm Q15M PRN PO DECREASED GLUCOSE; Start 04/13/18 at 19:30 Dextrose (D50w Syringe) 25 ml Q15M PRN IV DECREASED GLUCOSE; Start 04/13/18 at 19:30 Dextrose (D50w Syringe) 50 ml Q15M PRN IV DECREASED GLUCOSE; Start 04/13/18 at 19:30 Glucagon (Glucagen) 1 mg Q15M PRN IM DECREASED GLUCOSE; Start 04/13/18 at 19:30 Glucose (Glutose) 15 gm Q15M PRN BUCCAL DECREASED GLUCOSE; Start 04/13/18 at 19:30 Influenza Virus Vaccine Quadrival (Fluzone) 0.5 ml ONCE ONCE IM* ; Start 04/15/18 at 10:00; Stop 04/15/18 at 10:01 Insulin Glargine (Lantus) 11 units DAILY@0800 SC ; Start 04/14/18 at 10:30 RANDELL MACARIO MD Apr 14, 2018 10:51
[2018-04-14] MEDS: INSULIN GLARGINE [LANTus] (100 UNITS/ML) SYG SC SCH (11:22)
[2018-04-14] MEDS ORDERED: VANCOMYCIN IV PER PHARMACY XX SCH (13:30)
--- NOTE | 2018-04-14 16:02 | CONS ---
DATE OF ADMISSION: 04/13/2018 DATE OF CONSULTATION: 04/14/2018 TYPE OF CONSULTATION: Infectious disease. REASON FOR CONSULTATION: Antibiotic management. HISTORY OF PRESENT ILLNESS: Byron Lyons is an 87-year-old male who was brought in from [facility] for altered level of consciousness, low oxygen saturation and hypotension. On arrival, th e patient's blood pressure and O2 sats were normal. He has severe dementia. There is no other histo ry. The patient is on medication for his dementia. He also has a history of high blood pressure, po ssible seizure disorder. Other problems include psychosis, COPD. PAST MEDICAL HISTORY: Operations as outlined. FAMILY HISTORY: Noncontributory. SOCIAL HISTORY: He does not smoke, drink or abuse drugs. ALLERGIES: NONE TO PENICILLIN, SULFA OR FOODS. MEDICATIONS: Per chart. REVIEW OF SYSTEMS: Noncontributory. PHYSICAL EXAMINATION: GENERAL: The patient is a well-developed, well-nourished male who is awake, but confused, in no acut e distress. VITAL SIGNS: Stable. He is afebrile. SKIN: Without generalized rash. HEENT: Within normal limits. NECK: Supple. LYMPH NODES: None palpable. CHEST: Decreased breath sounds at the bases. HEART: Without murmur or gallop. ABDOMEN: Soft, nontender, nondistended without organosplenomegaly or masses. EXTREMITIES: Without cyanosis, clubbing or edema. RECTAL AND GENITAL: Deferred. NEUROLOGIC: No focal neurological abnormalities. ANCILLARY LABORATORY DATA: White count 16.7, H and H of 12.7 and 40.5, platelet count 378,000. BUN and creatinine was 144/5.41 with a random glucose of 295. The patient has blood cultures which have gram-positive cocci in pairs and chains. Urine has gram-negative rods. DIAGNOSTIC DATA: Chest x-ray shows no evidence for acute cardiopulmonary disease. His urine was pos itive for 3+ leukocyte esterase, greater than 182 white cells per high powered field. IMPRESSION AND PLAN: In conclusion, the patient most likely has urinary tract infection with possibl e sepsis, has acute toxic encephalopathy. 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 We w ill continue him on his vancomycin and cefepime. He most likely has a urinary tract infection. I am not sure about his blood cultures. They probably should be repeated. I will dictate my findings to the hospitalist. Dictated By: TELLO WHITING MD, JD/DARRIAN Conf#: [id number] DID#: [id number] CC: JOHN CORRAL MD;*End*
[2018-04-14] MEDS ORDERED: CEFEPIME 1GM/50 ML IVPB SCH (18:00)
--- NOTE | 2018-04-14 20:57 | CONS ---
Date/Time of Note Date/Time of Note DATE: 04/14/18 TIME: 20:42 Assessment/Plan Assessment/Plan Hospital Course ID PROGRESS NOTE CURRENT ABX: DAY #2 => Vanco IV + Cefepime 04/14/1818 04/14/18517 24H INTERVAL SUMMARY * No * Bleeding from meatus post FC insertion trauma * 04/13/18 CXR: No evidence for active cardiopulmonary disease. MICRO * ( * 04/13/18 Urine Cx: URINE CULTURE Preliminary Organism 1 GRAM NEGATIVE DOMINGA COLONY COUNT >100,000 CFU/ml * 04/13/18 BCx 1/2 bottles: BLOOD CULTURE Preliminary BCULT GRAM BOTTLE 1 Gram positive cocci in pairs and chains seen on gram stain of the broth Organism 1 GRAM POS COCCI IN PAIRS,CHAIN PHYSICAL EXAMINATION: GENERAL: Afebrile, VSS, HEENT: AT, NC, anicteric NECK: Supple, trach CHEST: Equal chest rise bilaterally, without dyspnea on observation HEART: Pulse RRR ABDOMEN: Soft / NT EXTREMITIES: Warm, dry SKIN: No rash, no diaphoresis ID ASSESSMENT 87 yo M w/PMHx Dementia w/Psychosis, HTN, Diabetes admit with: 1. Sepsis on admission with hypotension, lactic acidosis, leukocytosis, AMS, secondary to UTI and bacteremia 2. GNR UTI w/Pyuria + Hematuria URINE CULTURE Preliminary Organism 1 GRAM NEGATIVE DOMINGA COLONY COUNT >100,000 CFU/ml 3. GPC (+)BCx 1/2 bottles drawn in ED * 04/13/18 BCx 1/2 bottles: BLOOD CULTURE Preliminary BCULT GRAM BOTTLE 1 Gram positive cocci in pairs and chains seen on gram stain of the broth Organism 1 GRAM POS COCCI IN PAIRS,CHAIN 4. Acute toxic metabolic encephalopathy 5. LOVE, most likely prerenal vs ATN vs Obstruction * Baseline S.Cr 02/2018 was 1.0 6. Hypernatremia, hypovolemic 7. HTN 8. Atrial Fibrillation - Rate controlled 9. BPH- on terazosin * - Dia placed in ED * Bleeding from meatus post FC insertion trauma (?)MRSA Nares ABX ALLERGIES: NKDA INVASIVES: PIV, FC CURRENT ABX: DAY #2 ==Vanco IV + Cefepime ID RECOMMENDATIONS/PLAN: Continue current ABX == DC Vanco in AM if NO MRSA due to LOVE Awaiting final micro pending . Result Diagram: 04/14/1851704/14/18517 Results 24hrs Laboratory Tests Test 04/13/18 22:05 04/13/18 23:16 04/14/18 01:36 04/14/18 05:18 Bedside Glucose 273 H 262 H Lactic Acid 2.4 *H Level White Blood 20.8 #H Count Red Blood Count 4.09 L Hemoglobin 12.5 L Hematocrit 40.2 L Mean Corpuscular 98.3 Volume Mean Corpuscular 30.6 Hemoglobin Mean Corpuscular 31.1 L Hemoglobin Janette nt Red Cell 14.4 Distribution Width Platelet Count 364 Mean Platelet 12.0 H Volume Immature 2.300 H Granulocytes % Neutrophils % 85.1 H Lymphocytes % 4.6 L Monocytes % 7.3 Eosinophils % 0.3 Basophils % 0.4 Nucleated Red 0.0 Blood Cells % Immature 0.480 H Granulocytes # Neutrophils # 17.6 H Lymphocytes # 1.0 Monocytes # 1.5 H Eosinophils # 0.1 Basophils # 0.1 Nucleated Red 0.0 Blood Cells # Sodium Level 158 H Potassium Level 4.5 Chloride Level 125 H Carbon Dioxide 24 Level Anion Gap 9 Blood Urea 144 H Nitrogen Creatinine 5.12 H Est Glomerular Filtrat Rate mL/min Glucose Level 300 H Hemoglobin A1c 6.5 H Osmolality 387 H Calcium Level 8.9 Magnesium Level 2.5 Total Bilirubin 0.2 Direct Bilirubin 0.00 Indirect 0.2 Bilirubin Aspartate Amino 70 H Transf (AST/SGOT ) Alanine 39 Aminotransferase (ALT/SGPT) Alkaline 92 Phosphatase Total Protein 6.5 Albumin 3.2 L Globulin 3.30 H Albumin/Globulin 0.96 Ratio Test 04/14/18 05:47 04/14/18 07:47 04/14/18 08:18 04/14/18 10:40 Bedside Glucose 344 H 335 H Lactic Acid 2.0 Level Urine Color YELLOW Urine Clarity TURBID A Urine pH 5.0 Urine Specific 1.017 [place] Urine Ketones NEGATIVE Urine Nitrite NEGATIVE Urine Bilirubin NEGATIVE Urine NEGATIVE Urobilinogen Urine Leukocyte 3+ H Esterase Urine 91 H Microscopic RBC Urine > 182 H Microscopic WBC Urine Bacteria FEW A Urine Mucus FEW A Urine Yeast FEW A (Budding) Urine Hemoglobin 2+ H Urine Osmolality 447 Urine Random 18 L Sodium Urine Random 58.2 Potassium Urine Random 711 Urea Nitrogen Urine Glucose 1+ H Urine Total 2+ H Protein Test 04/14/18 11:12 04/14/18 12:41 04/14/18 17:17 04/14/18 20:04 Bedside Glucose 346 H 298 H 300 H 239 H Consultation Date/Type/Reason Admit Date/Time Apr 13, 2018 at 18:12 Initial Consult Date Exam/Review of Systems Vital Signs Vitals Vital Signs Date Temp Pulse Resp B/P (MAP) Pulse Ox O2 O2 Flow FiO2 Time Delivery Rate 04/14/18 98.3 76 18 150/52 95 20:07 (84) 04/13/18 Room Air 22:02 Intake and Output 04/13/18 04/13/18 04/14/18 1515:00 23:00 07:00 IntakeIntake Total 700 ml BalanceBalance 700 ml Medications Medications Current Medications IV Flush (NS 3 ml) 3 ml PER PROTOCOL IV ; Start 04/13/18 at 18:30 Ondansetron HCl (Zofran Inj) 4 mg Q6H PRN IV NAUSEA AND/OR VOMITING; Start 04/13/18 at 18:30 Acetaminophen (Tylenol Supp) 650 mg Q6H PRN [place] PAIN LEVEL 1-3 OR FEVER; Start 04/13/18 at 18:30 Pantoprazole (Protonix Iv) 40 mg DAILY@06 IV Last administered on 04/14/18at 06:40; Admin Dose 40 MG; Start 04/14/18 at 06:00 Dextrose 1,000 ml @ 100 mls/hr Q10H IV Last administered on 04/14/18at 10:22; Admin Dose 100 MLS/HR; Start 04/13/18 at 18:30 Cefepime HCl 50 ml @ 100 mls/hr Q24H IVPB Last administered on 04/14/18at 17:41; Admin Dose 100 MLS/HR; Start 04/14/18 at 18:00 Heparin Sodium (Porcine) (Heparin (5000 Units/1ml)) 5,000 unit BID SC ; Start 04/13/18 at 21:00; Status Hold Insulin Aspart (Novolog Insulin Pen) NOVOLOG *MILD* ALGORI... Q4 SC Last administered on 04/14/18at 17:21; Admin Dose 5 UNIT; Start 04/13/18 at 21:00 Hydralazine HCl (Apresoline) 10 mg Q4H PRN IV SBP >170; Start 04/13/18 at 19:00 Miscellaneous Information 1 ea NOTE XX ; Start 04/13/18 at 19:30 Glucose (Glutose) 15 gm Q15M PRN PO DECREASED GLUCOSE; Start 04/13/18 at 19:30 Glucose (Glutose) 22.5 gm Q15M PRN PO DECREASED GLUCOSE; Start 04/13/18 at 19:30 Dextrose (D50w Syringe) 25 ml Q15M PRN IV DECREASED GLUCOSE; Start 04/13/18 at 19:30 Dextrose (D50w Syringe) 50 ml Q15M PRN IV DECREASED GLUCOSE; Start 04/13/18 at 19:30 Glucagon (Glucagen) 1 mg Q15M PRN IM DECREASED GLUCOSE; Start 04/13/18 at 19:30 Glucose (Glutose) 15 gm Q15M PRN BUCCAL DECREASED GLUCOSE; Start 04/13/18 at 19:30 Influenza Virus Vaccine Quadrival (Fluzone) 0.5 ml ONCE ONCE IM* ; Start 04/15/18 at 10:00; Stop 04/15/18 at 10:01 Insulin Glargine (Lantus) 11 units DAILY@0800 SC Last administered on 04/14/18at 11:22; Admin Dose 11 UNITS; Start 04/14/18 at 10:30 Vancomycin HCl (Vanco Iv Per Pharmacy) VANCOMYCIN PER PHARMACY PER PROTOCOL XX ; Start 04/14/18 at 13:30 Miscellaneous Information (*Rx Drug Level Order Reminder*) VANCO RANDOM @ 500 (... ONCE ONCE XX ; Start 04/15/18 at 05:00; Stop 04/15/18 at 05:01 FITO ESTEVEZ NP Apr 14, 2018 20:52
[2018-04-14] MEDS ORDERED: morphine SULFATE/PF (2 MG/2 ML) SYG IV SCH (23:26)
[2018-04-15] VITALS (10 sets, daily range): BP systolic 101–145; BP diastolic 50–88; PULSE 68–89; RESP 18–22
[2018-04-15] MEDS: INSULIN ASPART [NOVOLOG] 3 ML PEN SC SCH ×3 (02:20→08:40)
[2018-04-15] MEDS ORDERED: HALOPERIDOL 5 MG INJ IM ONE (05:00)
[2018-04-15] MEDS ORDERED: LORAZEPAM 4 MG/ML VIAL ONE (05:05)
[2018-04-15] MEDS ORDERED: LORAZEPAM 4 MG/ML VIAL IV ONE ×2 (05:30→20:30)
[2018-04-15] MEDS: PANTOPRAZOLE 40 MG INJ IV SCH (05:58)
[2018-04-15] MEDS: DEXTROSE 5% 1,000 ML IV SCH ×2 (08:36→20:24)
[2018-04-15] MEDS: INSULIN GLARGINE [LANTus] (100 UNITS/ML) SYG SC SCH (08:40)
[2018-04-15] MEDS ORDERED: VANCOMYCIN 1 GM 250 ML IVPB SCH ×2 (09:00→11:00)
[2018-04-15] MEDS: Insulin NOVOLOG SS MODERATE Algorithm(NPO/TPN/ENTERAL FEEDS) SC SCH ×4 (09:00→20:34)
[2018-04-15] MEDS ORDERED: CEFEPIME 2GM/50 ML IVPB SCH (10:00)
--- NOTE | 2018-04-15 11:36 | CONS ---
Date/Time of Note Date/Time of Note DATE: 04/15/18 TIME: 11:28 Assessment/Plan Assessment/Plan Hospital Course ID PROGRESS NOTE CURRENT ABX: DAY #3 => Vanco IV + Cefepime 04/15/18 0440 04/15/18 0440 24H INTERVAL SUMMARY * Lethargic, baseline dementia, calm, looks comfortable VSS, no fevers, NAD, without dyspnea, no cough * Bleeding from meatus post FC insertion trauma * 04/13/18 CXR: No evidence for active cardiopulmonary disease. MICRO * 04/14/18 --> repeat BCx in process * 04/13/18 Urine Cx: GRAM NEGATIVE DOMINGA URINE CULTURE Final Organism 1 ESCHERICHIA COLI COLONY COUNT >100,000 CFU/ml E COLI M.I.C. RX --------- --- AMPICILLIN 8 S CEFAZOLIN <=4 S CEFOTAXIME S CIPROFLOXACIN >=4 R GENTAMICIN <=1 S LEVOFLOXACIN >=8 R NITROFURANTOIN <=16 S TOBRAMYCIN <=1 S TRIMETHOPRIM/SULFAMETHOXAZOLE <=20 S * 04/13/18 BCx 1/2 bottles: BLOOD CULTURE Preliminary BCULT GRAM BOTTLE 1 Gram positive cocci in pairs and chains seen on gram stain of the broth Organism 1 GRAM POS COCCI IN PAIRS,CHAIN * 04/13/18 BCx 1/2 bottles: BLOOD CULTURE Preliminary BLOOD CULTURE Preliminary BCULT GRAM BOTTLE 1 Gram positive cocci in pairs and chains . seen on gram stain of the broth BCULT GRAM BOTTLE 2 Gram positive cocci in pairs and clusters . seen on gram stain of the broth Organism 1 ALPHA HEMOLYTIC STREP SPP . VIRIDANS GROUP Organism 2 STAPHYLOCOCCUS SPECIES PHYSICAL EXAMINATION: GENERAL: Afebrile, VSS, HEENT: AT, NC, anicteric NECK: Supple, trach CHEST: Equal chest rise bilaterally, without dyspnea on observation HEART: Pulse RRR ABDOMEN: Soft / NT EXTREMITIES: Warm, dry SKIN: No rash, no diaphoresis ID ASSESSMENT 87 yo M w/PMHx Dementia w/Psychosis, HTN, Diabetes admit with: 1. Sepsis on admission with hypotension, lactic acidosis, leukocytosis, AMS, secondary to UTI and bacteremia 2. GNR UTI w/Pyuria + Hematuria * Urine Cx: GRAM NEGATIVE DOMINGA URINE CULTURE Final Organism 1 ESCHERICHIA COLI COLONY COUNT >100,000 CFU/ml 3. GPC (+)BCx bottles drawn in ED * 04/13/18 BCx * Organism 1 ALPHA HEMOLYTIC STREP SPP VIRIDANS GROUP Organism 2 STAPHYLOCOCCUS SPECIES 4. Acute toxic metabolic encephalopathy 5. LOVE, most likely prerenal vs ATN vs Obstruction * Baseline S.Cr 02/2018 was 1.0 6. Hypernatremia, hypovolemic 7. HTN 8. Atrial Fibrillation - Rate controlled 9. BPH- on terazosin * - Dia placed in ED * Bleeding from meatus post FC insertion trauma (?)MRSA Nares ABX ALLERGIES: NKDA INVASIVES: PIV, FC CURRENT ABX: DAY #3 ==Vanco IV + Cefepime ID RECOMMENDATIONS/PLAN: Continue Vanco IV == Awaiting final micro STAPH pending Change Cefepime to Ceftriaxone which will cover both Alpha Strep and GNR UTI 04/14/18 --> repeat BCx in process . . Result Diagram: 04/15/180 04/15/18 0440 Results 24hrs Laboratory Tests Test 04/14/18 12:41 04/14/18 17:17 04/14/18 20:04 04/15/18 02:15 Bedside Glucose 298 H 300 H 239 H 230 H Test 04/15/18 04:40 04/15/18 05:45 04/15/18 05:51 04/15/18 08:34 White Blood 24.8 H Count Red Blood Count 3.69 L Hemoglobin 11.3 L Hematocrit 35.7 L Mean 96.7 Corpuscular Volume Mean 30.6 Corpuscular Hemoglobin Mean 31.7 L Corpuscular Hemoglobin Conc ent Red Cell 14.7 H Distribution Width Platelet Count 326 Mean Platelet 12.2 H Volume Immature 2.800 H Granulocytes % Neutrophils % 83.7 H Lymphocytes % 6.2 L Monocytes % 5.4 Eosinophils % 1.3 Basophils % 0.6 Nucleated Red 0.0 Blood Cells % Immature 0.690 H Granulocytes # Neutrophils # 20.8 H Lymphocytes # 1.5 Monocytes # 1.3 H Eosinophils # 0.3 Basophils # 0.2 H Nucleated Red 0.0 Blood Cells # Sodium Level 155 H Potassium Level 3.8 Chloride Level 117 H Carbon Dioxide 25 Level Anion Gap 13 Blood Urea 135 H Nitrogen Creatinine 4.05 #H Glucose Level 223 H Calcium Level 8.8 Phosphorus 5.0 H Level Magnesium Level 2.6 H Albumin 3.1 L Random 7.5 Vancomycin Level Blood Gas Blood arterial Specimen Source Arterial Blood 04/15/2018 6:00 Date Drawn :01 AM Arterial Blood 7.411 pH (Temp corrected ) Arterial Blood 31.7 L pCO2 (Temp correct) Arterial Blood 153.1 H pO2 (Temp corrected ) Arterial Blood 19.7 L HCO3 Arterial Blood -4.0 L Base Excess Arterial Blood 98.7 Oxygen Saturati on Timothy Test ACCEPTAB Arterial Blood Left Radial Gas Puncture Site Arterial 0.2 Blood Carboxyhe moglobin Arterial Blood 0.2 Methemoglobin Blood Gas A-a 189.4 H O2 Differential Oxyhemoglobin 98.3 Percent Blood Gas 37.0 Temperature Blood Gas 24 Actual Respiration Rat e Blood Gas MASK - SIMPLE Modality FiO2 53.0 Blood Gas AZRA A RN Critical Value Read Back Blood Gas KB Notified Whom Blood Gas 04/15/2018 6:08 Notified Time :19 AM Bedside Glucose 222 H 240 H Consultation Date/Type/Reason Admit Date/Time Apr 13, 2018 at 18:12 Initial Consult Date Exam/Review of Systems Vital Signs Vitals Vital Signs Date Temp Pulse Resp B/P (MAP) Pulse Ox O2 O2 Flow FiO2 Time Delivery Rate 04/15/18 98.3 70 22 119/62 95 Room Air 11:20 (81) 04/15/18 2.0 08:00 Intake and Output 04/14/18 04/14/18 04/15/18 1515:00 23:00 07:00 IntakeIntake Total 0 ml 0 ml OutputOutput Total 250 ml 200 ml BalanceBalance -250 ml -200 ml Medications Medications Current Medications IV Flush (NS 3 ml) 3 ml PER PROTOCOL IV ; Start 04/13/18 at 18:30 Ondansetron HCl (Zofran Inj) 4 mg Q6H PRN IV NAUSEA AND/OR VOMITING; Start 04/13/18 at 18:30 Acetaminophen (Tylenol Supp) 650 mg Q6H PRN [place] PAIN LEVEL 1-3 OR FEVER; Start 04/13/18 at 18:30 Pantoprazole (Protonix Iv) 40 mg DAILY@06 IV Last administered on 04/15/18at 05:58; Admin Dose 40 MG; Start 04/14/18 at 06:00 Dextrose 1,000 ml @ 100 mls/hr Q10H IV Last administered on 04/15/18at 08:36; Admin Dose 100 MLS/HR; Start 04/13/18 at 18:30 Heparin Sodium (Porcine) (Heparin (5000 Units/1ml)) 5,000 unit BID SC ; Start 04/13/18 at 21:00; Status Hold Hydralazine HCl (Apresoline) 10 mg Q4H PRN IV SBP >170; Start 04/13/18 at 19:00 Miscellaneous Information 1 ea NOTE XX ; Start 04/13/18 at 19:30 Glucose (Glutose) 15 gm Q15M PRN PO DECREASED GLUCOSE; Start 04/13/18 at 19:30 Glucose (Glutose) 22.5 gm Q15M PRN PO DECREASED GLUCOSE; Start 04/13/18 at 19:30 Dextrose (D50w Syringe) 25 ml Q15M PRN IV DECREASED GLUCOSE; Start 04/13/18 at 19:30 Dextrose (D50w Syringe) 50 ml Q15M PRN IV DECREASED GLUCOSE; Start 04/13/18 at 19:30 Glucagon (Glucagen) 1 mg Q15M PRN IM DECREASED GLUCOSE; Start 04/13/18 at 19:30 Glucose (Glutose) 15 gm Q15M PRN BUCCAL DECREASED GLUCOSE; Start 04/13/18 at 19:30 Vancomycin HCl (Vanco Iv Per Pharmacy) VANCOMYCIN PER PHARMACY PER PROTOCOL XX ; Start 04/14/18 at 13:30 Cefepime HCl 50 ml @ 100 mls/hr Q24H IVPB Last administered on 04/15/18at 10:11; Admin Dose 100 MLS/HR; Start 04/15/18 at 10:00 Vancomycin HCl 250 ml @ 125 mls/hr 1100 IVPB Last administered on 04/15/18at 11:13; Admin Dose 125 MLS/HR; Start 04/15/18 at 11:00; Stop 04/15/18 at 19:00 Insulin Glargine (Lantus) 16 units DAILY@0800 SC ; Start 04/16/18 at 08:00 Insulin Aspart (Novolog Insulin Pen) (Adult SC Insulin - Moder... Q4 SC ; Start 04/15/18 at 09:00 Collagenase (Santyl) 1 applic DAILY TOP ; Start 04/15/18 at 11:00 FITO ESTEVEZ NP Apr 15, 2018 11:36
[2018-04-15] MEDS ORDERED: INSULIN ASPART [NOVOLOG] 3 ML PEN SC SCH (13:00)
[2018-04-15] MEDS: COLLAGENASE 5 GM (UD JAR) TOP SCH (14:15)
[2018-04-15] MEDS: BALSAM PERU/CASTOR OIL 60 GM TUBE TOP SCH (14:15)
[2018-04-15] MEDS: CEFTRIAXONE 1 GM/50 ML (PMX) 50 ML IVPB SCH (14:15)
--- NOTE | 2018-04-15 14:36 | PN ---
Date/Time of Note Date/Time of Note DATE: 04/15/18 TIME: 14:36 Objective Vitals Vital Signs Date Temp Pulse Resp B/P (MAP) Pulse Ox O2 O2 Flow FiO2 Time Delivery Rate 04/15/18 68 12:00 04/15/18 98.3 22 119/62 95 Room Air 11:20 (81) 04/15/18 2.0 08:00 Intake and Output 04/14/18 04/14/18 04/15/18 1515:00 23:00 07:00 IntakeIntake Total 0 ml 0 ml OutputOutput Total 250 ml 200 ml BalanceBalance -250 ml -200 ml Results Result Diagram: 04/15/18 0440 04/15/18 0440 Medications Medications Current Medications IV Flush (NS 3 ml) 3 ml PER PROTOCOL IV ; Start 04/13/18 at 18:30 Ondansetron HCl (Zofran Inj) 4 mg Q6H PRN IV NAUSEA AND/OR VOMITING; Start 04/13/18 at 18:30 Acetaminophen (Tylenol Supp) 650 mg Q6H PRN DC PAIN LEVEL 1-3 OR FEVER; Start 04/13/18 at 18:30 Pantoprazole (Protonix Iv) 40 mg DAILY@06 IV Last administered on 04/15/18at 05:58; Admin Dose 40 MG; Start 04/14/18 at 06:00 Dextrose 1,000 ml @ 100 mls/hr Q10H IV Last administered on 04/15/18at 08:36; Admin Dose 100 MLS/HR; Start 04/13/18 at 18:30 Heparin Sodium (Porcine) (Heparin (5000 Units/1ml)) 5,000 unit BID SC ; Start 04/13/18 at 21:00; Status Hold Hydralazine HCl (Apresoline) 10 mg Q4H PRN IV SBP >170; Start 04/13/18 at 19:00 Miscellaneous Information 1 ea NOTE XX ; Start 04/13/18 at 19:30 Glucose (Glutose) 15 gm Q15M PRN PO DECREASED GLUCOSE; Start 04/13/18 at 19:30 Glucose (Glutose) 22.5 gm Q15M PRN PO DECREASED GLUCOSE; Start 04/13/18 at 19:30 Dextrose (D50w Syringe) 25 ml Q15M PRN IV DECREASED GLUCOSE; Start 04/13/18 at 19:30 Dextrose (D50w Syringe) 50 ml Q15M PRN IV DECREASED GLUCOSE; Start 04/13/18 at 19:30 Glucagon (Glucagen) 1 mg Q15M PRN IM DECREASED GLUCOSE; Start 04/13/18 at 19:30 Glucose (Glutose) 15 gm Q15M PRN BUCCAL DECREASED GLUCOSE; Start 04/13/18 at 19:30 Vancomycin HCl (Vanco Iv Per Pharmacy) VANCOMYCIN PER PHARMACY PER PROTOCOL XX ; Start 04/14/18 at 13:30 Vancomycin HCl 250 ml @ 125 mls/hr 1100 IVPB Last administered on 04/15/18at 11:13; Admin Dose 125 MLS/HR; Start 04/15/18 at 11:00; Stop 04/15/18 at 19:00 Insulin Glargine (Lantus) 16 units DAILY@0800 SC ; Start 04/16/18 at 08:00 Insulin Aspart (Novolog Insulin Pen) (Adult SC Insulin - Moder... Q4 SC ; Start 04/15/18 at 09:00 Collagenase (Santyl) 1 applic DAILY TOP ; Start 04/15/18 at 11:00 Ceftriaxone Sodium 50 ml @ 100 mls/hr Q24H IVPB ; Start 04/15/18 at 12:00 VTE Prophylaxis Risk score (from Nsg)>0 risk: 8 SCD applied (from Nsg): Yes Lines/Catheters IV Catheter Type: Dia in Place: No Assessment/Plan Hospital Course Subjective Patient at baseline, chronic encephalopathy, unable to answer questions Objective Physical exam General: Patient is laying in bed encephalopathic, chronic, Mentation: Patient is alert and oriented Head: Normocephalic atraumatic Eyes: EOMI, pupils reactive to light Neck: Supple, nontender, midline Respiratory: Clear to auscultation bilaterally Cardiovascular: regular rate, no obvious murmurs Gastrointestinal: non-tender to palpation, bowel sounds heard. Neurological: Moves all extremities spontaneously, but only to noxious stimuli Skin: No new skin lesions, pressure ulcers Assessment/Plan 1. Acute toxic encephalopathy - patient moaning to touch and voice - Most likely secondary to UTI and bacteremia - will monitor for improvement in mentation 2. Sepsis secondary to UTI and bacteremia - Urine cultures growing gram neg rods - Blood cultures growing gram + cocci - ECHO ordered - ID consulted for antibiotic management - LA normalized - IV antibiotics on board and IVF 3. LOVE, most likely prerenal vs ATN vs Obstruction - Mild improvement in renal function but still severely impaired - Nephrology consulted and discussed with Dr. Crane, covering for Dr Duncan [place] - patient baseline Cr 02/2018 was 1.0 - IVF fluids on board and will monitor for improvement in function - Renal US results noted 4. Hypernatremia, hypovolemic - nephro to manage, cont IVF - was on Lasix and hctz as outpatient which may be contributing to dehydration 5. h/o DM - last A1c 02/2018 was 6.4 - Sugars very elevated which is most likely from D5 - ISS and accuchecks 6. afib - on amio as outpt. will resume when tolerating PO intake. HR controlled for now 7. HTN - on lasix, hctz, and lisinopril - will hold in setting of LOVE - PRN hydralazine if needed 8. Dementia/Alzheimer - on Namenda as outpatient 9. BPH - on terazosin - Dia placed in ED 10. psychosis - on valproic acid BID 11. Disposition - ID consulted for antibiotic management for UTI and bacteremia - Nephrology on board for management of LOVE and hypernatremia -pending cultures ROBERT JACKSON Apr 15, 2018 14:36
--- NOTE | 2018-04-15 16:00 | RADRPT ---
Echocardiogram Report Patient Name: ESPINOZA VILLASEÑOR Gender: Male Date: 1930 Study Date: 15-Apr-2018 Worm Packer: Denis Holm [facility] Location: [id number] Ref. Physician: JOHN CORRAL Quality: Technically Difficult Study Procedures: Transthoracic echocardiogram with complete 2D, M-Mode, and doppler examination. Indications: Staph bacteremia. 2D/M Mode Doppler Measurement Value Normal Ranges Measurement Value Normal Ranges LVIDd 2D 3.5 3.5 - 5.6 cm AV Peak Diego 1.2 m/sec LVIDs 2D 2.4 2.1 - 4.1 cm AV Peak PG 6.0 mmHg FS 2D 31.1 % LVOT Peak Diego 0.8 m/sec LVPWd 2D 1.0 0.6 - 1.1 cm LVOT Peak PG 2.0 mmHg IVSd 2D 1.3 0.6 - 1.1 cm MV E Peak Diego 0.5 m/sec IVS/LVPW 2D 1.3 MV A Peak Diego 0.7 m/sec AoR Diam 2D 2.4 2.0 - 3.7 cm MV E/A 0.8 LA/Ao 2D 1 0 - 1 MV Decel Time 261 msec EDV 2D 42.9 cm3 MV E/A 0.8 ESV 2D 14.0 cm3 TR Peak Diego 1.6 m/sec LA Dimen 2D 3.0 2.3 - 4.0 cm TR Peak PG 11.0 mmHg RVSP 14.0 mmHg Findings Left Ventricle: Normal left ventricular systolic function. Sigmoid septum. Ejection fraction is visually estimated at 60 %. Tissue Doppler/Mitral Doppler indices are consistent with impaired relaxation (Stage I diastolic dysfunction). Right Ventricle: Normal right ventricular size. Normal right ventricular systolic function. Left Atrium: The left atrium is normal in size. Right Atrium: The right atrium is normal in size. Mitral Valve: Mitral valve is not well visualized. Mild mitral leaflet calcification. Mild mitral annular calcification. Trace mitral regurgitation. Aortic Valve: Aortic valve not well visualized. Aortic cusps appear mildly calcified. Trace aortic valve regurgitation. Tricuspid Valve: Tricuspid valve not well visualized. Estimated peak PA systolic pressure 14 mmHg. There is trace tricuspid regurgitation. Pulmonic Valve: Pulmonic valve not well visualized. Pericardium: Normal pericardium with no significant pericardial effusion. Aorta: Normal aortic root. IVC: Normal size and normal respiratory collapse consistent with normal right atrial pressure. Conclusions Normal left ventricular systolic function. Sigmoid septum. Ejection fraction is visually estimated at 60 %. Tissue Doppler/Mitral Doppler indices are consistent with impaired relaxation (Stage I diastolic dysfunction). Mitral valve is not well visualized. Mild mitral leaflet calcification. Mild mitral annular calcification. Trace mitral regurgitation. Aortic valve not well visualized. Aortic cusps appear mildly calcified. Trace aortic valve regurgitation. Tricuspid valve not well visualized. Estimated peak PA systolic pressure 14 mmHg. There is trace tricuspid regurgitation. Pulmonic valve not well visualized. Electronically Signed By: Boby Castrejon 15-Apr-2018 15:59:45 -0800 Patient Name: ESPINOZA VILLASEÑOR Study Date: 15-Apr-2018 [id number]
[2018-04-15] MEDS ORDERED: LORAZEPAM 2 MG INJ IV ONE (20:00)
[2018-04-16] VITALS (9 sets, daily range): BP systolic 111–159; BP diastolic 54–96; PULSE 63–120; RESP 18–22
[2018-04-16] MEDS: Insulin NOVOLOG SS MODERATE Algorithm(NPO/TPN/ENTERAL FEEDS) SC SCH ×6 (01:57→21:00)
[2018-04-16] MEDS ORDERED: METHYLPREDNISOLONE 125 MG INJ IV ONE (02:00)
[2018-04-16] MEDS: DEXTROSE 5% 1,000 ML IV SCH ×2 (03:16→12:42)
[2018-04-16] MEDS: PANTOPRAZOLE 40 MG INJ IV SCH (06:19)
[2018-04-16] MEDS: COLLAGENASE 5 GM (UD JAR) TOP SCH (08:26)
[2018-04-16] MEDS: BALSAM PERU/CASTOR OIL 60 GM TUBE TOP SCH (08:26)
[2018-04-16] MEDS: INSULIN GLARGINE [LANTus] (100 UNITS/ML) SYG SC SCH (08:31)
[2018-04-16] MEDS ORDERED: ALBUTEROL/IPRATROPIUM (NEB) 3 ML AMP HHN PRN (10:00)
[2018-04-16] MEDS: CEFTRIAXONE 1 GM/50 ML (PMX) 50 ML IVPB SCH (12:34)
[2018-04-16] MEDS: ALBUTEROL/IPRATROPIUM (NEB) 3 ML AMP HHN SCH ×2 (12:53→20:39)
--- NOTE | 2018-04-16 13:36 | PN ---
Date/Time of Note Date/Time of Note DATE: 04/16/18 TIME: 13:34 Objective Vitals Vital Signs Date Temp Pulse Resp B/P (MAP) Pulse Ox O2 O2 Flow FiO2 Time Delivery Rate 04/16/18 99 2.0 12:54 04/16/18 72 18 Nasal 12:54 Cannula 04/16/18 98.4 137/65 11:55 (89) 04/16/18 27 02:27 Intake and Output 04/15/18 04/15/18 04/16/18 1515:00 23:00 07:00 IntakeIntake Total 1200 ml 1300 ml 1200 ml OutputOutput Total 600 ml 1000 ml BalanceBalance 1200 ml 700 ml 200 ml Results Result Diagram: 04/16/187 04/16/18436 Medications Medications Current Medications IV Flush (NS 3 ml) 3 ml PER PROTOCOL IV ; Start 04/13/18 at 18:30 Ondansetron HCl (Zofran Inj) 4 mg Q6H PRN IV NAUSEA AND/OR VOMITING; Start 04/13/18 at 18:30 Acetaminophen (Tylenol Supp) 650 mg Q6H PRN [place] PAIN LEVEL 1-3 OR FEVER; Start 04/13/18 at 18:30 Pantoprazole (Protonix Iv) 40 mg DAILY@06 IV Last administered on 04/16/18at 06:1 9; Admin Dose 40 MG; Start 04/14/18 at 06:00 Dextrose 1,000 ml @ 100 mls/hr Q10H IV Last administered on 04/16/18at 12:42; Admin Dose 100 MLS/HR; Start 04/13/18 at 18:30 Heparin Sodium (Porcine) (Heparin (5000 Units/1ml)) 5,000 unit BID SC ; Start 04/13/18 at 21:00; Status Hold Hydralazine HCl (Apresoline) 10 mg Q4H PRN IV SBP >170; Start 04/13/18 at 19:00 Miscellaneous Information 1 ea NOTE XX ; Start 04/13/18 at 19:30 Glucose (Glutose) 15 gm Q15M PRN PO DECREASED GLUCOSE; Start 04/13/18 at 19:30 Glucose (Glutose) 22.5 gm Q15M PRN PO DECREASED GLUCOSE; Start 04/13/18 at 19:30 Dextrose (D50w Syringe) 25 ml Q15M PRN IV DECREASED GLUCOSE; Start 04/13/18 at 19:30 Dextrose (D50w Syringe) 50 ml Q15M PRN IV DECREASED GLUCOSE; Start 04/13/18 at 19:30 Glucagon (Glucagen) 1 mg Q15M PRN IM DECREASED GLUCOSE; Start 04/13/18 at 19:30 Glucose (Glutose) 15 gm Q15M PRN BUCCAL DECREASED GLUCOSE; Start 04/13/18 at 19:30 Vancomycin HCl (Vanco Iv Per Pharmacy) VANCOMYCIN PER PHARMACY PER PROTOCOL XX ; Start 04/14/18 at 13:30 Insulin Glargine (Lantus) 16 units DAILY@0800 SC Last administered on 04/16/18at 08:31; Admin Dose 16 UNITS; Start 04/16/18 at 08:00 Insulin Aspart (Novolog Insulin Pen) (Adult SC Insulin - Moder... Q4 SC Last administered on 04/16/18at 12:40; Admin Dose 8 UNIT; Start 04/15/18 at 09:00 Collagenase (Santyl) 1 applic DAILY TOP Last administered on 04/16/18at 08:26; Admin Dose 1 APPLIC; Start 04/15/18 at 11:00 Ceftriaxone Sodium 50 ml @ 100 mls/hr Q24H IVPB Last administered on 04/16/18 12:34; Admin Dose 100 MLS/HR; Start 04/15/18 at 12:00 Albuterol/ Ipratropium (Duoneb) 3 ml Q6HWA RESP THERAPY HHN Last administered on 04/16/18at 12:53; Admin Dose 3 ML; Start 04/16/18 at 14:00 Albuterol/ Ipratropium (Duoneb) 3 ml Q2H RESP THERAPY PRN HHN shortness of breath; Start 04/16/18 at 10:00 VTE Prophylaxis Risk score (from Nsg)>0 risk: 7 SCD applied (from Nsg): Yes Lines/Catheters IV Catheter Type: Dia in Place: No Assessment/Plan Hospital Course Subjective Patient at baseline, chronic encephalopathy, unable to answer questions Objective Physical exam General: Patient is laying in bed encephalopathic, chronic, Mentation: Patient is alert and oriented Head: Normocephalic atraumatic Eyes: EOMI, pupils reactive to light Neck: Supple, nontender, midline Respiratory: Clear to auscultation bilaterally Cardiovascular: regular rate, no obvious murmurs Gastrointestinal: non-tender to palpation, bowel sounds heard. Neurological: Moves all extremities spontaneously, but only to noxious stimuli Skin: No new skin lesions, pressure ulcers Assessment/Plan 1. Acute toxic encephalopathy - patient moaning to touch and voice - Most likely any worse encephalopathy secondary to UTI and bacteremia - will monitor for improvement in mentation ?wheezing/sob -happened overnight on 04/16/18, however lung sounds appear clear -duonebs and cxr for now 2. Sepsis secondary to UTI and bacteremia - Urine cultures noted - Blood cultures noted - ECHO noted - ID consulted for antibiotic management - LA normalized - IV antibiotics on board and IVF 3. LOVE, most likely prerenal vs ATN vs Obstruction, improving - Mild improvement in renal function but still severely impaired - Nephrology consulted and discussed with Dr. Crane, covering for Dr Song group - patient baseline Cr 02/2018 was 1.0 - IVF fluids on board and will monitor for improvement in function - Renal US results noted 4. Hypernatremia, hypovolemic - nephro to manage, cont IVF - was on Lasix and hctz as outpatient which may be contributing to dehydration 5. h/o DM - last A1c 02/2018 was 6.4 - Sugars very elevated which is most likely from D5 - ISS and accuchecks 6. afib - on amio as outpt. will resume when tolerating PO intake. HR controlled for now 7. HTN - on lasix, hctz, and lisinopril - will hold in setting of LOVE - PRN hydralazine if needed 8. Dementia/Alzheimer - on Namenda as outpatient 9. BPH - on terazosin - Dia placed in ED 10. psychosis - on valproic acid BID 11. Disposition - ID consulted for antibiotic management for UTI and bacteremia - Nephrology on board for management of LOVE and hypernatremia -pending cultures ROBERT JACKSON Apr 16, 2018 13:36
--- NOTE | 2018-04-16 17:29 | CONS ---
Date/Time of Note Date/Time of Note DATE: 04/16/18 TIME: 17:20 Assessment/Plan Assessment/Plan Hospital Course ID PROGRESS NOTE CURRENT ABX: DAY #4=> Vanco IV + Ceftriaxone s/p Cefepime 04/16/187 04/16/18 043 24H INTERVAL SUMMARY * Wheezing noted -- he is on IV steroids, currently resting without distress, Tmax 99.0 * 04/13/18 CXR: No evidence for active cardiopulmonary disease. MICRO * 04/14/18 --> repeat BCx (-) Day #2 * 04/13/18 Urine Cx: GRAM NEGATIVE DOMINGA URINE CULTURE Final Organism 1 ESCHERICHIA COLI COLONY COUNT >100,000 CFU/ml E COLI M.I.C. RX --------- --- AMPICILLIN 8 S CEFAZOLIN <=4 S CEFOTAXIME S CIPROFLOXACIN >=4 R GENTAMICIN <=1 S LEVOFLOXACIN >=8 R NITROFURANTOIN <=16 S TOBRAMYCIN <=1 S TRIMETHOPRIM/SULFAMETHOXAZOLE <=20 S * 04/13/18 BCx 1/2 bottles: BLOOD CULTURE Preliminary BCULT GRAM BOTTLE 1 Gram positive cocci in pairs and chains seen on gram stain of the broth Organism 1 GRAM POS COCCI IN PAIRS,CHAIN * 04/13/18 BCx 1/2 bottles: BLOOD CULTURE Preliminary BLOOD CULTURE Preliminary Organism 1 ALPHA HEMOLYTIC STREP SPP VIRIDANS GROUP Organism 2 COAGULASE NEGATIVE STAPH PHYSICAL EXAMINATION: GENERAL: Afebrile, VSS, HEENT: AT, NC, anicteric NECK: Supple, trach CHEST: Equal chest rise bilaterally, without dyspnea on observation HEART: Pulse RRR ABDOMEN: Soft / NT EXTREMITIES: Warm, dry SKIN: No rash, no diaphoresis ID ASSESSMENT 87 yo M w/PMHx Dementia w/Psychosis, HTN, Diabetes admit with: 1. Sepsis on admission with hypotension, lactic acidosis, leukocytosis, AMS, secondary to UTI and bacteremia 2. GNR UTI w/Pyuria + Hematuria * Urine Cx: GRAM NEGATIVE DOMINGA URINE CULTURE Final Organism 1 ESCHERICHIA COLI COLONY COUNT >100,000 CFU/ml 3. GPC (+)BCx bottles drawn in ED * 04/13/18 BCx * Organism 1 ALPHA HEMOLYTIC STREP SPP [facility]ID[facility] Organism 2 COAGULASE NEGATIVE STAPH * 04/14/18 --> repeat BCx (-) Day #2 4. Acute toxic metabolic encephalopathy 5. LOVE, most likely prerenal vs ATN vs Obstruction * Baseline S.Cr 02/2018 was 1.0 6. Hypernatremia, hypovolemic 7. HTN 8. Atrial Fibrillation - Rate controlled 9. BPH- on terazosin * - Dia placed in ED * Bleeding from meatus post FC insertion trauma (?)MRSA Nares ABX ALLERGIES: NKDA INVASIVES: PIV, FC CURRENT ABX: DAY #4 ==Vanco IV + Ceftriaxone s/p Cefepime ID RECOMMENDATIONS/PLAN: Continue Vanco IV == Awaiting final micro STAPH pending == DC Vanco KIM due to LOVE Ceftriaxone which will cover both Alpha Strep and GNR UTI . Result Diagram: 04/16/187 04/16/187 Results 24hrs Laboratory Tests Test 04/15/18 20:23 04/16/18 01:51 04/16/18 04:37 04/16/18 04:43 Bedside Glucose 219 185 169 White Blood Count 20.8 H Red Blood Count 3.51 L Hemoglobin 10.9 L Hematocrit 33.8 L Mean Corpuscular 96.3 Volume Mean Corpuscular 31.1 Hemoglobin Mean Corpuscular 32.2 Hemoglobin Concent Red Cell Distribution 14.6 H Width Platelet Count 308 Mean Platelet Volume 12.0 H Immature Granulocytes 3.500 H % Neutrophils % 84.5 H Lymphocytes % 5.8 L Monocytes % 3.6 Eosinophils % 2.0 Basophils % 0.6 Nucleated Red Blood 0.0 Cells % Immature Granulocytes 0.730 H # Neutrophils # 17.6 H Lymphocytes # 1.2 Monocytes # 0.7 Eosinophils # 0.4 Basophils # 0.1 Nucleated Red Blood 0.0 Cells # Sodium Level 152 H Potassium Level 3.7 Chloride Level 122 H Carbon Dioxide Level 24 Anion Gap 6 Blood Urea Nitrogen 115 H Creatinine 2.69 #H Est Glomerular Filtrat Rate mL/min Glucose Level 181 Calcium Level 8.6 Phosphorus Level 4.2 Magnesium Level 2.3 Test 04/16/18 08:25 04/16/18 12:36 04/16/18 17:03 Bedside Glucose 239 H 298 H 289 H Consultation Date/Type/Reason Admit Date/Time Apr 13, 2018 at 18:12 Initial Consult Date Exam/Review of Systems Vital Signs Vitals Vital Signs Date Temp Pulse Resp B/P (MAP) Pulse Ox O2 O2 Flow FiO2 Time Delivery Rate 04/16/18 63 16:00 04/16/18 98.5 18 131/96 98 Nasal 15:34 (108) Cannula 04/16/18 2.0 12:54 04/16/18 27 02:27 Intake and Output 04/15/18 04/15/18 04/16/18 1515:00 23:00 07:00 IntakeIntake Total 1200 ml 1300 ml 1200 ml OutputOutput Total 600 ml 1000 ml BalanceBalance 1200 ml 700 ml 200 ml Medications Medications Current Medications IV Flush (NS 3 ml) 3 ml PER PROTOCOL IV ; Start 04/13/18 at 18:30 Ondansetron HCl (Zofran Inj) 4 mg Q6H PRN IV NAUSEA AND/OR VOMITING; Start 04/13/18 at 18:30 Acetaminophen (Tylenol Supp) 650 mg Q6H PRN [place] PAIN LEVEL 1-3 OR FEVER; Start 04/13/18 at 18:30 Pantoprazole (Protonix Iv) 40 mg DAILY@06 IV Last administered on 04/16/18at 06:19; Admin Dose 40 MG; Start 04/14/18 at 06:00 Dextrose 1,000 ml @ 100 mls/hr Q10H IV Last administered on 04/16/18at 12:42; Admin Dose 100 MLS/HR; Start 04/13/18 at 18:30 Heparin Sodium (Porcine) (Heparin (5000 Units/1ml)) 5,000 unit BID SC ; Start 04/13/18 at 21:00; Status Hold Hydralazine HCl (Apresoline) 10 mg Q4H PRN IV SBP >170; Start 04/13/18 at 19:00 Miscellaneous Information 1 ea NOTE XX ; Start 04/13/18 at 19:30 Glucose (Glutose) 15 gm Q15M PRN PO DECREASED GLUCOSE; Start 04/13/18 at 19:30 Glucose (Glutose) 22.5 gm Q15M PRN PO DECREASED GLUCOSE; Start 04/13/18 at 19:30 Dextrose (D50w Syringe) 25 ml Q15M PRN IV DECREASED GLUCOSE; Start 04/13/18 at 19:30 Dextrose (D50w Syringe) 50 ml Q15M PRN IV DECREASED GLUCOSE; Start 04/13/18 at 19:30 Glucagon (Glucagen) 1 mg Q15M PRN IM DECREASED GLUCOSE; Start 04/13/18 at 19:30 Glucose (Glutose) 15 gm Q15M PRN BUCCAL DECREASED GLUCOSE; Start 04/13/18 at 19:30 Vancomycin HCl (Vanco Iv Per Pharmacy) VANCOMYCIN PER PHARMACY PER PROTOCOL XX ; Start 04/14/18 at 13:30 Insulin Glargine (Lantus) 16 units DAILY@0800 SC Last administered on 04/16/18 08:31; Admin Dose 16 UNITS; Start 04/16/18 at 08:00 Insulin Aspart (Novolog Insulin Pen) (Adult SC Insulin - Moder... Q4 SC Last administered on 04/16/18 17:07; Admin Dose 8 UNIT; Start 04/15/18 at 09:00 Collagenase (Santyl) 1 applic DAILY TOP Last administered on 04/16/18 08:26; Admin Dose 1 APPLIC; Start 04/15/18 at 11:00 Ceftriaxone Sodium 50 ml @ 100 mls/hr Q24H IVPB Last administered on 04/16/18 12:34; Admin Dose 100 MLS/HR; Start 04/15/18 at 12:00 Albuterol/ Ipratropium (Duoneb) 3 ml Q6HWA RESP THERAPY HHN Last administered on 04/16/18 12:53; Admin Dose 3 ML; Start 04/16/18 at 14:00 Albuterol/ Ipratropium (Duoneb) 3 ml Q2H RESP THERAPY PRN HHN shortness of breath; Start 04/16/18 at 10:00 FITO ESTEVEZ NP Apr 16, 2018 17:29
[2018-04-16] MEDS ORDERED: HALOPERIDOL 5 MG INJ IM ONE (20:30)
[2018-04-16] MEDS ORDERED: LORAZEPAM 4 MG/ML VIAL IV ONE (20:30)
[2018-04-17] VITALS (12 sets, daily range): BP systolic 104–138; BP diastolic 55–84; PULSE 65–78; RESP 17–24
[2018-04-17] MEDS: Insulin NOVOLOG SS MODERATE Algorithm(NPO/TPN/ENTERAL FEEDS) SC SCH ×6 (01:00→21:03)
[2018-04-17] MEDS: DEXTROSE 5% 1,000 ML IV SCH ×3 (02:30→12:30)
[2018-04-17] MEDS: PANTOPRAZOLE 40 MG INJ IV SCH (05:35)
[2018-04-17] MEDS: ALBUTEROL/IPRATROPIUM (NEB) 3 ML AMP HHN SCH ×3 (08:22→20:34)
[2018-04-17] MEDS: COLLAGENASE 5 GM (UD JAR) TOP SCH (08:41)
[2018-04-17] MEDS: BALSAM PERU/CASTOR OIL 60 GM TUBE TOP SCH (08:47)
[2018-04-17] MEDS: INSULIN GLARGINE [LANTus] (100 UNITS/ML) SYG SC SCH (08:54)
[2018-04-17] MEDS ORDERED: LIDOCAINE 1% (MPF) 5 ML VIAL SC ONE (11:30)
--- NOTE | 2018-04-17 13:25 | CONS ---
Assessment/Plan Assessment/Plan Hospital Course A: 87 yo M with multiple comorbidities who p/w ams, for which neurology is consulted. UA +++, blood cx + LOVE + This is most clinically consistent with an acute and multifactorial toxic- metabolic on chronic encephalopathy. Intracranial hemorrhage is worth excluding in this clinical context.. P: Await Head CT for further characterization Await ammonia level Other medical management and supportive care per primary [place] as able Limit sedating medications where possible PT/OT/ST as tolerated Will follow clinically Result Diagram: 04/16/187 04/16/187 Results 24hrs Laboratory Tests Test 04/16/18 17:03 04/16/18 21:27 04/17/18 05:33 04/17/18 08:34 Bedside Glucose 289 H 178 306 H 202 Test 04/17/18 12:23 White Blood Count 19.5 H Red Blood Count 3.81 L Hemoglobin 11.6 L Hematocrit 36.6 L Mean Corpuscular Volume 96.1 Mean Corpuscular 30.4 Hemoglobin Mean Corpuscular 31.7 L Hemoglobin Concent Red Cell Distribution 14.8 H Width Platelet Count 397 # Mean Platelet Volume 12.0 H Immature Granulocytes % 4.500 H Neutrophils % 81.8 H Lymphocytes % 6.4 L Monocytes % 6.9 Eosinophils % 0.1 Basophils % 0.3 Nucleated Red Blood 0.0 Cells % Immature Granulocytes # 0.870 H Neutrophils # 15.9 H Lymphocytes # 1.3 Monocytes # 1.3 H Eosinophils # 0.0 Basophils # 0.1 Nucleated Red Blood 0.0 Cells # Consultation Date/Type/Reason Admit Date/Time Apr 13, 2018 at 18:12 Type of Consult Neurology Reason for Consultation ams Requesting Provider: ROBERT JACKSON Date/Time of Note DATE: 04/17/18 TIME: 13:02 Hx of Present Illness Hx of Present Illness 87 yo M PMH COPD, Alzheimer's, atrial fibrillation, BPH, diabetes mellitus, dementia, psychosis, and HTN presented to ED from [facility] for altered mental status. Patient is a poor historian but has baseline dementia and usually is not able to voice his needs. Per EMS, he is at his baseline. History obtained from ED physician as well as NH charge. Patient is a Full Code as well. Patient found with dehydration at time of presentation and foul smelling urine that appears purulent yellow/green. Subjective hx not possible: pt non-verbal Exam/Review of Systems Vital Signs Vitals Vital Signs Date Temp Pulse Resp B/P (MAP) Pulse Ox O2 O2 Flow FiO2 Time Delivery Rate 04/17/18 98.3 73 20 109/55 96 12:08 (73) 04/17/18 3.0 08:23 04/17/18 Nasal 08:22 Cannula 04/17/18 27 02:44 Intake and Output 04/16/18 04/16/18 04/17/18 1515:00 23:00 07:00 IntakeIntake Total 1000 ml OutputOutput Total 1300 ml 1400 ml BalanceBalance -1300 ml -400 ml Exam PE: Gen Appearance: No Apparent Distress; On 2 pt restraints HEENT: Normocephalic Cardiovascular: Regular rate Abdomen: Soft Extremities: Dry NE: The patient was lethargic, yelling and incomprehensively verbal. Did not open eyes or follow commands. Cranial nerve examination was limited by mental status. Pupils were equal and reactive to light. There was no afferent pupillary defect. Funduscopic examination was limited. Face was grossly symmetric, w/ present corneal and cough reflexes. Tone was spastic in UE. Muscle bulk was slightly diminished. I did not see fasciculations. The patient was moving UE spontaneously; withdrew lowers to noxious stimulation. Coordination and gait testing was limited by mental status. Arm and leg reflexes were symmetric. Nascimento's sign was absent. Plantar responses were flexor. Medications Medications Current Medications IV Flush (NS 3 ml) 3 ml PER PROTOCOL IV ; Start 04/13/18 at 18:30 Ondansetron HCl (Zofran Inj) 4 mg Q6H PRN IV NAUSEA AND/OR VOMITING; Start 04/13/18 at 18:30 Acetaminophen (Tylenol Supp) 650 mg Q6H PRN [place] PAIN LEVEL 1-3 OR FEVER; Start 04/13/18 at 18:30 Pantoprazole (Protonix Iv) 40 mg DAILY@06 IV Last administered on 04/17/18at 05:35; Admin Dose 40 MG; Start 04/14/18 at 06:00 Dextrose 1,000 ml @ 100 mls/hr Q10H IV Last administered on 04/17/18at 08:12; Admin Dose 100 MLS/HR; Start 04/13/18 at 18:30 Heparin Sodium (Porcine) (Heparin (5000 Units/1ml)) 5,000 unit BID SC ; Start 04/13/18 at 21:00; Status Hold Hydralazine HCl (Apresoline) 10 mg Q4H PRN IV SBP >170; Start 04/13/18 at 19:00 Miscellaneous Information 1 ea NOTE XX ; Start 04/13/18 at 19:30 Glucose (Glutose) 15 gm Q15M PRN PO DECREASED GLUCOSE; Start 04/13/18 at 19:30 Glucose (Glutose) 22.5 gm Q15M PRN PO DECREASED GLUCOSE; Start 04/13/18 at 19:30 Dextrose (D50w Syringe) 25 ml Q15M PRN IV DECREASED GLUCOSE; Start 04/13/18 at 19:30 Dextrose (D50w Syringe) 50 ml Q15M PRN IV DECREASED GLUCOSE; Start 04/13/18 at 19:30 Glucagon (Glucagen) 1 mg Q15M PRN IM DECREASED GLUCOSE; Start 04/13/18 at 19:30 Glucose (Glutose) 15 gm Q15M PRN BUCCAL DECREASED GLUCOSE; Start 04/13/18 at 1 9:30 Vancomycin HCl (Vanco Iv Per Pharmacy) VANCOMYCIN PER PHARMACY PER PROTOCOL XX ; Start 04/14/18 at 13:30 Insulin Glargine (Lantus) 16 units DAILY@0800 SC Last administered on 04/17/18 08:54; Admin Dose 16 UNITS; Start 04/16/18 at 08:00 Insulin Aspart (Novolog Insulin Pen) (Adult SC Insulin - Moder... Q4 SC Last administered on 04/17/18 08:42; Admin Dose 4 UNIT; Start 04/15/18 at 09:00 Collagenase (Santyl) 1 applic DAILY TOP Last administered on 04/17/18 08:41; Admin Dose 1 APPLIC; Start 04/15/18 at 11:00 Ceftriaxone Sodium 50 ml @ 100 mls/hr Q24H IVPB Last administered on 04/16/18 12:34; Admin Dose 100 MLS/HR; Start 04/15/18 at 12:00 Albuterol/ Ipratropium (Duoneb) 3 ml Q6HWA RESP THERAPY HHN Last administered on 04/17/18 08:22; Admin Dose 3 ML; Start 04/16/18 at 14:00 Albuterol/ Ipratropium (Duoneb) 3 ml Q2H RESP THERAPY PRN HHN shortness of breath; Start 04/16/18 at 10:00 Haloperidol (Haldol) 5 mg Q12H PRN IM agitation; Start 04/17/18 at 09:30 Past Medical History reviewed Medical History: diabetes, hypertension, other (COPD, atrial fibrillation, BPH, Alzheimers, dementia) Medications Current Medications IV Flush (NS 3 ml) 3 ml PER PROTOCOL IV ; Start 04/13/18 at 18:30 Ondansetron HCl (Zofran Inj) 4 mg Q6H PRN IV NAUSEA AND/OR VOMITING; Start 04/13/18 at 18:30 Acetaminophen (Tylenol Supp) 650 mg Q6H PRN [place] PAIN LEVEL 1-3 OR FEVER; Start 04/13/18 at 18:30 Pantoprazole (Protonix Iv) 40 mg DAILY@06 IV Last administered on 04/17/18at 05:35; Admin Dose 40 MG; Start 04/14/18 at 06:00 Dextrose 1,000 ml @ 100 mls/hr Q10H IV Last administered on 04/17/18at 08:12; Admin Dose 100 MLS/HR; Start 04/13/18 at 18:30 Heparin Sodium (Porcine) (Heparin (5000 Units/1ml)) 5,000 unit BID SC ; Start 04/13/18 at 21:00; Status Hold Hydralazine HCl (Apresoline) 10 mg Q4H PRN IV SBP >170; Start 04/13/18 at 19:00 Miscellaneous Information 1 ea NOTE XX ; Start 04/13/18 at 19:30 Glucose (Glutose) 15 gm Q15M PRN PO DECREASED GLUCOSE; Start 04/13/18 at 19:30 Glucose (Glutose) 22.5 gm Q15M PRN PO DECREASED GLUCOSE; Start 04/13/18 at 19:30 Dextrose (D50w Syringe) 25 ml Q15M PRN IV DECREASED GLUCOSE; Start 04/13/18 at 19:30 Dextrose (D50w Syringe) 50 ml Q15M PRN IV DECREASED GLUCOSE; Start 04/13/18 at 19:30 Glucagon (Glucagen) 1 mg Q15M PRN IM DECREASED GLUCOSE; Start 04/13/18 at 19:30 Glucose (Glutose) 15 gm Q15M PRN BUCCAL DECREASED GLUCOSE; Start 04/13/18 at 19:30 Vancomycin HCl (Vanco Iv Per Pharmacy) VANCOMYCIN PER PHARMACY PER PROTOCOL XX ; Start 04/14/18 at 13:30 Insulin Glargine (Lantus) 16 units DAILY@0800 SC Last administered on 04/17/18 08:54; Admin Dose 16 UNITS; Start 04/16/18 at 08:00 Insulin Aspart (Novolog Insulin Pen) (Adult SC Insulin - Moder... Q4 SC Last administered on 04/17/18 08:42; Admin Dose 4 UNIT; Start 04/15/18 at 09:00 Collagenase (Santyl) 1 applic DAILY TOP Last administered on 04/17/18 08:41; Admin Dose 1 APPLIC; Start 04/15/18 at 11:00 Ceftriaxone Sodium 50 ml @ 100 mls/hr Q24H IVPB Last administered on 04/16/18 12:34; Admin Dose 100 MLS/HR; Start 04/15/18 at 12:00 Albuterol/ Ipratropium (Duoneb) 3 ml Q6HWA RESP THERAPY HHN Last administered on 04/17/18 08:22; Admin Dose 3 ML; Start 04/16/18 at 14:00 Albuterol/ Ipratropium (Duoneb) 3 ml Q2H RESP THERAPY PRN HHN shortness of breath; Start 04/16/18 at 10:00 Haloperidol (Haldol) 5 mg Q12H PRN IM agitation; Start 04/17/18 at 09:30 Allergies: Coded Allergies: No Known Allergy (Unverified , 04/13/18) Past Surgical History reviewed Past Surgical Hx: other (unknown) Social History reviewed Alcohol Use: none Smoking Status: Unknown if ever smoked Drug Use: none PEACE JUSTIN NP Apr 17, 2018 13:14 VERONA CISNEROS Apr 17, 2018 13:28
--- NOTE | 2018-04-17 14:23 | PN ---
Date/Time of Note Date/Time of Note DATE: 04/17/18 TIME: 14:20 Objective Vitals Vital Signs Date Temp Pulse Resp B/P (MAP) Pulse Ox O2 O2 Flow FiO2 Time Delivery Rate 04/17/18 91 21 96 Nasal 3.0 13:54 Cannula 04/17/18 98.3 109/55 12:08 (73) 04/17/18 27 02:44 Intake and Output 04/16/18 04/16/18 04/17/18 1515:00 23:00 07:00 IntakeIntake Total 1000 ml OutputOutput Total 1300 ml 1400 ml BalanceBalance -1300 ml -400 ml Results Result Diagram: 04/17/18 1223 04/17/18 1223 Medications Medications Current Medications IV Flush (NS 3 ml) 3 ml PER PROTOCOL IV ; Start 04/13/18 at 18:30 Ondansetron HCl (Zofran Inj) 4 mg Q6H PRN IV NAUSEA AND/OR VOMITING; Start 04/13/18 at 18:30 Acetaminophen (Tylenol Supp) 650 mg Q6H PRN [place] PAIN LEVEL 1-3 OR FEVER; Start 04/13/18 at 18:30 Pantoprazole (Protonix Iv) 40 mg DAILY@06 IV Last administered on 04/17/18at 05:35; Admin Dose 40 MG; Start 04/14/18 at 06:00 Dextrose 1,000 ml @ 100 mls/hr Q10H IV Last administered on 04/17/18at 08:12; Admin Dose 100 MLS/HR; Start 04/13/18 at 18:30 Heparin Sodium (Porcine) (Heparin (5000 Units/1ml)) 5,000 unit BID SC ; Start 04/13/18 at 21:00; Status Hold Hydralazine HCl (Apresoline) 10 mg Q4H PRN IV SBP >170; Start 04/13/18 at 19:00 Miscellaneous Information 1 ea NOTE XX ; Start 04/13/18 at 19:30 Glucose (Glutose) 15 gm Q15M PRN PO DECREASED GLUCOSE; Start 04/13/18 at 19:30 Glucose (Glutose) 22.5 gm Q15M PRN PO DECREASED GLUCOSE; Start 04/13/18 at 19:30 Dextrose (D50w Syringe) 25 ml Q15M PRN IV DECREASED GLUCOSE; Start 04/13/18 at 19:30 Dextrose (D50w Syringe) 50 ml Q15M PRN IV DECREASED GLUCOSE; Start 04/13/18 at 19:30 Glucagon (Glucagen) 1 mg Q15M PRN IM DECREASED GLUCOSE; Start 04/13/18 at 19:30 Glucose (Glutose) 15 gm Q15M PRN BUCCAL DECREASED GLUCOSE; Start 04/13/18 at 19:30 Vancomycin HCl (Vanco Iv Per Pharmacy) VANCOMYCIN PER PHARMACY PER PROTOCOL XX ; Start 04/14/18 at 13:30 Insulin Glargine (Lantus) 16 units DAILY@0800 SC Last administered on 04/17/18 08:54; Admin Dose 16 UNITS; Start 04/16/18 at 08:00 Insulin Aspart (Novolog Insulin Pen) (Adult SC Insulin - Moder... Q4 SC Last administered on 04/17/18 08:42; Admin Dose 4 UNIT; Start 04/15/18 at 09:00 Collagenase (Santyl) 1 applic DAILY TOP Last administered on 04/17/18 08:41; Admin Dose 1 APPLIC; Start 04/15/18 at 11:00 Ceftriaxone Sodium 50 ml @ 100 mls/hr Q24H IVPB Last administered on 04/16/18 12:34; Admin Dose 100 MLS/HR; Start 04/15/18 at 12:00 Albuterol/ Ipratropium (Duoneb) 3 ml Q6HWA RESP THERAPY HHN Last administered on 04/17/18 13:54; Admin Dose 3 ML; Start 04/16/18 at 14:00 Albuterol/ Ipratropium (Duoneb) 3 ml Q2H RESP THERAPY PRN HHN shortness of breath; Start 04/16/18 at 10:00 Haloperidol (Haldol) 5 mg Q12H PRN IM agitation; Start 04/17/18 at 09:30 Miscellaneous Information (*Rx Drug Level Order Reminder*) RANDOM VANCOMYCIN LEVEL ... ONCE ONCE XX ; Start 04/18/18 at 05:00; Stop 04/18/18 at 05:01 VTE Prophylaxis Risk score (from Ns)>0 risk: 8 SCD applied (from Ns): Yes Lines/Catheters IV Catheter Type: Dia in Place: No Assessment/Plan Hospital Course Subjective Patient moaning when you touch him, but no purposeful movement Objective Physical exam General: Patient is laying in bed encephalopathic, chronic, Mentation: Patient is not alert and oriented Head: Normocephalic atraumatic Eyes: EOMI, pupils reactive to light Neck: Supple, nontender, midline Respiratory: Clear to auscultation bilaterally Cardiovascular: regular rate, no obvious murmurs Gastrointestinal: non-tender to palpation, bowel sounds heard. Neurological: Moves all extremities spontaneously, but only to noxious stimuli Skin: No new skin lesions, pressure ulcers Assessment/Plan 1. Acute toxic encephalopathy - patient moaning to touch and voice - Most likely any worse encephalopathy secondary to UTI and bacteremia - will monitor for improvement in mentation -neurology consulted, CT pending -[facility]) is speaking random frisian words and being able to be fed. ?wheezing/sob -happened overnight on 04/16/18, however lung sounds appear clear -duonebs for now Sepsis secondary to UTI and bacteremia - Urine cultures noted - Blood cultures noted - ECHO noted - ID consulted for antibiotic management - LA normalized - IV antibiotics on board and IVF LOVE, most likely prerenal vs ATN vs Obstruction, improving - Mild improvement in renal function but still severely impaired - Nephrology consulted and discussed with Dr. Crane, covering for Dr Song group - patient baseline Cr 02/2018 was 1.0 - IVF fluids on board and will monitor for improvement in function - Renal US results noted Hypernatremia, hypovolemic - nephro to manage, cont IVF - was on Lasix and hctz as outpatient which may be contributing to dehydration h/o DM - last A1c 02/2018 was 6.4 - Sugars very elevated which is most likely from D5 - ISS and accuchecks afib - on amio as outpt. will resume when tolerating PO intake. HR controlled for now HTN - on lasix, hctz, and lisinopril - will hold in setting of LOVE - PRN hydralazine if needed Dementia/Alzheimer - on Namenda as outpatient BPH - on terazosin - Dia placed in ED psychosis - on valproic acid BID Disposition - ID consulted for antibiotic management for UTI and bacteremia - Nephrology on board for management of LOVE and hypernatremia -pending cultures -neurology consulted for encephalopathy -patient has a conservatorship and if does not improve soon, will have to initiate TPN and subsequent possible PEG tube ROBERT JACKSON Apr 17, 2018 14:23
--- NOTE | 2018-04-17 14:56 | CONS ---
Date/Time of Note Date/Time of Note DATE: 04/17/18 TIME: 14:55 Assessment/Plan Assessment/Plan Hospital Course Patient is noncommunicative lying comfortably in bed no fevers overnight WBC 19.5 H&H 11.6 and 36.6 platelets 397 neutrophils 81.8 BUN 86 creatinine 1.93 Microbiology: Blood culture on admission grew alphahemolytic strep and coag negative staph species, urine culture grew E. coli Antimicrobials: Rocephin vancomycin Chest x-ray from yesterday revealed no radiographic evidence of acute cardiopulmonary disease Physical examination: Well-nourished well-developed chronically ill-appearing elderly man who is in no distress. Head atraumatic normocephalic sclera nonicteric vehicle mucosa dry neck is supple chest rise symmetrical breath sounds diminished bases. Heart: S1-S2. Abdomen soft bowel sounds present extremities without cyanosis, trace edema Assessment: 1. Severe sepsis with polymicrobial bacteremia. 2D echo revealed no evidence for vegetations 2. E. coli UTI 3. Acute encephalopathy 4. BPH 5. Hypertension Plan: Clinically stable, DC vancomycin, continue Rocephin, monitor labs and c linical status, neurology recommendations Result Diagram: 04/17/18 1223 04/17/18 1223 Results 24hrs Laboratory Tests Test 04/16/18 17:03 04/16/18 21:27 04/17/18 05:33 04/17/18 08:34 Bedside Glucose 289 H 178 306 H 202 Test 04/17/18 12:23 White Blood Count 19.5 H Red Blood Count 3.81 L Hemoglobin 11.6 L Hematocrit 36.6 L Mean Corpuscular Volume 96.1 Mean Corpuscular 30.4 Hemoglobin Mean Corpuscular 31.7 L Hemoglobin Concent Red Cell Distribution 14.8 H Width Platelet Count 397 # Mean Platelet Volume 12.0 H Immature Granulocytes % 4.500 H Neutrophils % 81.8 H Lymphocytes % 6.4 L Monocytes % 6.9 Eosinophils % 0.1 Basophils % 0.3 Nucleated Red Blood 0.0 Cells % Immature Granulocytes # 0.870 H Neutrophils # 15.9 H Lymphocytes # 1.3 Monocytes # 1.3 H Eosinophils # 0.0 Basophils # 0.1 Nucleated Red Blood 0.0 Cells # Sodium Level 158 H Potassium Level 3.6 Chloride Level 121 H Carbon Dioxide Level 25 Anion Gap 12 Blood Urea Nitrogen 86 H Creatinine 1.93 H Est Glomerular Filtrat Rate mL/min Glucose Level 194 Calcium Level 9.2 Magnesium Level 2.2 Total Bilirubin 0.1 L Direct Bilirubin 0.00 Indirect Bilirubin 0.1 Aspartate Amino 73 H Transf (AST/SGOT) Alanine 58 Aminotransferase (ALT/SG PT) Alkaline Phosphatase 91 Ammonia 12 Total Protein 6.5 Albumin 3.2 L Globulin 3.30 H Albumin/Globulin Ratio 0.96 Thyroid Stimulating 4.010 Hormone (TSH) Consultation Date/Type/Reason Admit Date/Time Apr 13, 2018 at 18:12 Initial Consult Date Type of Consult ID Requesting Provider: ROBERT JACKSON Exam/Review of Systems Vital Signs Vitals Vital Signs Date Temp Pulse Resp B/P (MAP) Pulse Ox O2 O2 Flow FiO2 Time Delivery Rate 04/17/18 91 21 96 Nasal 3.0 13:54 Cannula 04/17/18 98.3 109/55 12:08 (73) 04/17/18 27 02:44 Intake and Output 04/16/18 04/16/18 04/17/18 1515:00 23:00 07:00 IntakeIntake Total 1000 ml OutputOutput Total 1300 ml 1400 ml BalanceBalance -1300 ml -400 ml Medications Medications Current Medications IV Flush (NS 3 ml) 3 ml PER PROTOCOL IV ; Start 04/13/18 at 18:30 Ondansetron HCl (Zofran Inj) 4 mg Q6H PRN IV NAUSEA AND/OR VOMITING; Start 04/13/18 at 18:30 Acetaminophen (Tylenol Supp) 650 mg Q6H PRN [place] PAIN LEVEL 1-3 OR FEVER; Start 04/13/18 at 18:30 Pantoprazole (Protonix Iv) 40 mg DAILY@06 IV Last administered on 04/17/18at 05 :35; Admin Dose 40 MG; Start 04/14/18 at 06:00 Dextrose 1,000 ml @ 100 mls/hr Q10H IV Last administered on 04/17/18at 08:12; Admin Dose 100 MLS/HR; Start 04/13/18 at 18:30 Heparin Sodium (Porcine) (Heparin (5000 Units/1ml)) 5,000 unit BID SC ; Start 04/13/18 at 21:00; Status Hold Hydralazine HCl (Apresoline) 10 mg Q4H PRN IV SBP >170; Start 04/13/18 at 19:00 Miscellaneous Information 1 ea NOTE XX ; Start 04/13/18 at 19:30 Glucose (Glutose) 15 gm Q15M PRN PO DECREASED GLUCOSE; Start 04/13/18 at 19:30 Glucose (Glutose) 22.5 gm Q15M PRN PO DECREASED GLUCOSE; Start 04/13/18 at 19:30 Dextrose (D50w Syringe) 25 ml Q15M PRN IV DECREASED GLUCOSE; Start 04/13/18 at 19:30 Dextrose (D50w Syringe) 50 ml Q15M PRN IV DECREASED GLUCOSE; Start 04/13/18 at 19:30 Glucagon (Glucagen) 1 mg Q15M PRN IM DECREASED GLUCOSE; Start 04/13/18 at 19:30 Glucose (Glutose) 15 gm Q15M PRN BUCCAL DECREASED GLUCOSE; Start 04/13/18 at 19:30 Vancomycin HCl (Vanco Iv Per Pharmacy) VANCOMYCIN PER PHARMACY PER PROTOCOL XX ; Start 04/14/18 at 13:30 Insulin Glargine (Lantus) 16 units DAILY@0800 SC Last administered on 04/17/18 08:54; Admin Dose 16 UNITS; Start 04/16/18 at 08:00 Insulin Aspart (Novolog Insulin Pen) (Adult SC Insulin - Moder... Q4 SC Last administered on 04/17/18 08:42; Admin Dose 4 UNIT; Start 04/15/18 at 09:00 Collagenase (Santyl) 1 applic DAILY TOP Last administered on 04/17/18 08:41; Admin Dose 1 APPLIC; Start 04/15/18 at 11:00 Ceftriaxone Sodium 50 ml @ 100 mls/hr Q24H IVPB Last administered on 04/16/18 12:34; Admin Dose 100 MLS/HR; Start 04/15/18 at 12:00 Albuterol/ Ipratropium (Duoneb) 3 ml Q6HWA RESP THERAPY HHN Last administered on 04/17/18 13:54; Admin Dose 3 ML; Start 04/16/18 at 14:00 Albuterol/ Ipratropium (Duoneb) 3 ml Q2H RESP THERAPY PRN HHN shortness of breath; Start 04/16/18 at 10:00 Haloperidol (Haldol) 5 mg Q12H PRN IM agitation; Start 04/17/18 at 09:30 Miscellaneous Information (*Rx Drug Level Order Reminder*) RANDOM VANCOMYCIN LEVEL ... ONCE ONCE XX ; Start 04/18/18 at 05:00; Stop 04/18/18 at 05:01 JAMIE WORRELL NP Apr 17, 2018 14:56
[2018-04-17] MEDS: CEFTRIAXONE 1 GM/50 ML (PMX) 50 ML IVPB SCH (15:15)
--- NOTE | 2018-04-17 17:33 | CONS ---
Date/Time of Note Date/Time of Note DATE: 04/17/18 TIME: 17:28 Assessment/Plan Assessment/Plan Assessment/Plan 87 yo Male with 1) Pre Renal Azotemia 2) Dehydration 3) Hypernatremia 4) AMS 5) Anemia, Chronic 6) Sepsis 7) Underlying CKD unspecified at this time. Renal Function cont to improved Cont IVFs S/p NGT IN positive Start enteral feeding with free H20 Flushes q6hr Cont IVFs at same rate Repeat labs in am Renal US reviewed, No hydronephrosis. Thank you for the opportunity to participate in the care of Mr Lyons. Result Diagram: 04/17/18 1223 04/17/18 1223 Results 24hrs Laboratory Tests Test 04/16/18 21:27 04/17/18 05:33 04/17/18 08:34 04/17/18 12:23 Bedside Glucose 178 306 H 202 White Blood Count 19.5 H Red Blood Count 3.81 L Hemoglobin 11.6 L Hematocrit 36.6 L Mean Corpuscular Volume 96.1 Mean Corpuscular 30.4 Hemoglobin Mean Corpuscular 31.7 L Hemoglobin Concent Red Cell Distribution 14.8 H Width Platelet Count 397 # Mean Platelet Volume 12.0 H Immature Granulocytes % 4.500 H Neutrophils % 81.8 H Lymphocytes % 6.4 L Monocytes % 6.9 Eosinophils % 0.1 Basophils % 0.3 Nucleated Red Blood 0.0 Cells % Immature Granulocytes # 0.870 H Neutrophils # 15.9 H Lymphocytes # 1.3 Monocytes # 1.3 H Eosinophils # 0.0 Basophils # 0.1 Nucleated Red Blood 0.0 Cells # Sodium Level 158 H Potassium Level 3.6 Chloride Level 121 H Carbon Dioxide Level 25 Anion Gap 12 Blood Urea Nitrogen 86 H Creatinine 1.93 H Est Glomerular Filtrat Rate mL/min Glucose Level 194 Calcium Level 9.2 Magnesium Level 2.2 Total Bilirubin 0.1 L Direct Bilirubin 0.00 Indirect Bilirubin 0.1 Aspartate Amino 73 H Transf (AST/SGOT) Alanine 58 Aminotransferase (ALT/SG PT) Alkaline Phosphatase 91 Ammonia 12 Total Protein 6.5 Albumin 3.2 L Globulin 3.30 H Albumin/Globulin Ratio 0.96 Thyroid Stimulating 4.010 Hormone (TSH) Test 04/17/18 15:25 Bedside Glucose 190 Consultation Date/Type/Reason Admit Date/Time Apr 13, 2018 at 18:12 Initial Consult Date Type of Consult Renal Requesting Provider: ROBERT JACKSON 24 HR Interval Summary Free Text/Dictation S/p NGT Placement Constitutional: requiring O2 Exam/Review of Systems Vital Signs Vitals Vital Signs Date Temp Pulse Resp B/P (MAP) Pulse Ox O2 O2 Flow FiO2 Time Delivery Rate 04/17/18 97.9 74 20 128/84 99 16:17 (99) 04/17/18 Nasal 3.0 13:54 Cannula 04/17/18 27 02:44 Intake and Output 04/16/18 04/16/18 04/17/18 1515:00 23:00 07:00 IntakeIntake Total 1000 ml OutputOutput Total 1300 ml 1400 ml BalanceBalance -1300 ml -400 ml Exam Constitutional: frail; No distress Head: atraumatic Eyes: EOMI Neck: No jvd Respiratory: clear to auscultation; No labored breathing Cardiovascular: regular rate and rhythm; No edema Gastrointestinal: soft, non-tender Extremities: No edema Neurological: confused, lethargic Skin: No diaphoresis Medications Medications Current Medications IV Flush (NS 3 ml) 3 ml PER PROTOCOL IV ; Start 04/13/18 at 18:30 Ondansetron HCl (Zofran Inj) 4 mg Q6H PRN IV NAUSEA AND/OR VOMITING; Start 04/13/18 at 18:30 Acetaminophen (Tylenol Supp) 650 mg Q6H PRN [place] PAIN LEVEL 1-3 OR FEVER; Start 04/13/18 at 18:30 Pantoprazole (Protonix Iv) 40 mg DAILY@06 IV Last administered on 04/17/18at 05:35; Admin Dose 40 MG; Start 04/14/18 at 06:00 Dextrose 1,000 ml @ 100 mls/hr Q10H IV Last administered on 04/17/18at 08:12; A dmin Dose 100 MLS/HR; Start 04/13/18 at 18:30 Heparin Sodium (Porcine) (Heparin (5000 Units/1ml)) 5,000 unit BID SC ; Start 04/13/18 at 21:00; Status Hold Hydralazine HCl (Apresoline) 10 mg Q4H PRN IV SBP >170; Start 04/13/18 at 19:00 Miscellaneous Information 1 ea NOTE XX ; Start 04/13/18 at 19:30 Glucose (Glutose) 15 gm Q15M PRN PO DECREASED GLUCOSE; Start 04/13/18 at 19:30 Glucose (Glutose) 22.5 gm Q15M PRN PO DECREASED GLUCOSE; Start 04/13/18 at 19:30 Dextrose (D50w Syringe) 25 ml Q15M PRN IV DECREASED GLUCOSE; Start 04/13/18 at 19:30 Dextrose (D50w Syringe) 50 ml Q15M PRN IV DECREASED GLUCOSE; Start 04/13/18 at 19:30 Glucagon (Glucagen) 1 mg Q15M PRN IM DECREASED GLUCOSE; Start 04/13/18 at 19:30 Glucose (Glutose) 15 gm Q15M PRN BUCCAL DECREASED GLUCOSE; Start 04/13/18 at 19:30 Insulin Glargine (Lantus) 16 units DAILY@0800 SC Last administered on 04/17/18 08:54; Admin Dose 16 UNITS; Start 04/16/18 at 08:00 Insulin Aspart (Novolog Insulin Pen) (Adult SC Insulin - Moder... Q4 SC Last administered on 04/17/18 17:12; Admin Dose 4 UNIT; Start 04/15/18 at 09:00 Collagenase (Santyl) 1 applic DAILY TOP Last administered on 04/17/18 08:41; Admin Dose 1 APPLIC; Start 04/15/18 at 11:00 Ceftriaxone Sodium 50 ml @ 100 mls/hr Q24H IVPB Last administered on 04/17/18 15:15; Admin Dose 100 MLS/HR; Start 04/15/18 at 12:00 Albuterol/ Ipratropium (Duoneb) 3 ml Q6HWA RESP THERAPY HHN Last administered on 04/17/18 13:54; Admin Dose 3 ML; Start 04/16/18 at 14:00 Albuterol/ Ipratropium (Duoneb) 3 ml Q2H RESP THERAPY PRN HHN shortness of breath; Start 04/16/18 at 10:00 Haloperidol (Haldol) 5 mg Q12H PRN IM agitation; Start 04/17/18 at 09:30 Imaging Imaging IMPRESSION: No change in aeration. Enteric tube in satisfactory position. RPTAT: HH Cristian Coffey, Physician Date Time Electronically viewed and signed by Cristian Coffey Physician on 04/17/2018 17:23 IMPRESSION: Small cortical cyst within the otherwise unremarkable left kidney. No hydronephrosis. Right kidney and urinary bladder not visualized. RPTAT: [facility] Nidia Dowd Physician Date Time Electronically viewed and signed by Physician Rashad on 04/14/2018 09:13 MEETA SPENCER MD Apr 17, 2018 17:33
[2018-04-18] VITALS (16 sets, daily range): BP systolic 114–137; BP diastolic 54–71; PULSE 68–85; RESP 18–20
[2018-04-18] MEDS: DEXTROSE 5% 1,000 ML IV SCH ×3 (01:07→15:42)
[2018-04-18] MEDS: Insulin NOVOLOG SS MODERATE Algorithm(NPO/TPN/ENTERAL FEEDS) SC SCH ×3 (01:14→08:43)
[2018-04-18] MEDS: PANTOPRAZOLE 40 MG INJ IV SCH (05:43)
[2018-04-18] MEDS: ALBUTEROL/IPRATROPIUM (NEB) 3 ML AMP HHN SCH ×3 (08:17→20:05)
[2018-04-18] MEDS: BALSAM PERU/CASTOR OIL 60 GM TUBE TOP SCH (08:38)
[2018-04-18] MEDS: COLLAGENASE 5 GM (UD JAR) TOP SCH (08:38)
[2018-04-18] MEDS: INSULIN GLARGINE [LANTus] (100 UNITS/ML) SYG SC SCH ×2 (08:42→20:57)
[2018-04-18] MEDS: CEFTRIAXONE 1 GM/50 ML (PMX) 50 ML IVPB SCH (11:19)
--- NOTE | 2018-04-18 13:42 | CONS ---
Date/Time of Note Date/Time of Note DATE: 04/18/18 TIME: 13:40 Assessment/Plan Assessment/Plan Assessment/Plan 87 yo Male with 1) Pre Renal Azotemia 2) Dehydration 3) Hypernatremia 4) AMS 5) Anemia, Chronic 6) Sepsis 7) Underlying CKD unspecified at this time. Renal Function cont to improve Cont IVFs, increased to 125ml.hr S/p NGT IN positive Free H20 flushes to q4hr Repeat Na tonight. Renal US reviewed, No hydronephrosis. Result Diagram: 04/18/18 0455 04/18/18 0455 Results 24hrs Laboratory Tests Test 04/17/18 15:25 04/17/18 17:46 04/17/18 20:58 04/18/18 01:11 Bedside Glucose 190 196 220 254 H Test 04/18/18 04:55 04/18/18 05:12 04/18/18 08:39 White Blood Count 15.9 H Red Blood Count 3.75 L Hemoglobin 11.6 L Hematocrit 36.8 L Mean Corpuscular Volume 98.1 Mean Corpuscular 30.9 Hemoglobin Mean Corpuscular 31.5 L Hemoglobin Concent Red Cell Distribution 14.6 H Width Platelet Count 345 Mean Platelet Volume 12.5 H Immature Granulocytes % 4.600 H Neutrophils % 77.2 H Lymphocytes % 9.4 L Monocytes % 7.2 Eosinophils % 1.0 Basophils % 0.6 Nucleated Red Blood 0.0 Cells % Immature Granulocytes # 0.740 H Neutrophils # 12.3 H Lymphocytes # 1.5 Monocytes # 1.2 H Eosinophils # 0.2 Basophils # 0.1 Nucleated Red Blood 0.0 Cells # Sodium Level 160 H Potassium Level 4.0 Chloride Level 122 H Carbon Dioxide Level 24 Anion Gap 14 H Blood Urea Nitrogen 79 H Creatinine 1.77 H Est Glomerular Filtrat Rate mL/min Glucose Level 192 Calcium Level 9.3 Phosphorus Level 3.9 Magnesium Level 2.1 Bedside Glucose 205 208 Consultation Date/Type/Reason Admit Date/Time Apr 13, 2018 at 18:12 Initial Consult Date Type of Consult Renal Requesting Provider: ROBERT JACKSON 24 HR Interval Summary Free Text/Dictation Na not improved, NGT in position from first CXR, Repeat Pending, Good UO. Constitutional: requiring O2 Exam/Review of Systems Vital Signs Vitals Vital Signs Date Temp Pulse Resp B/P (MAP) Pulse Ox O2 O2 Flow FiO2 Time Delivery Rate 04/18/18 98.5 82 18 126/71 97 12:14 (89) 04/18/18 Nasal 3.0 08:18 Cannula 04/17/18 27 02:44 Intake and Output 04/17/18 04/17/18 04/18/18 1515:00 23:00 07:00 IntakeIntake Total 0 ml 40 ml OutputOutput Total 650 ml 600 ml BalanceBalance -650 ml -560 ml Exam Constitutional: frail ENMT: mucosa pink and moist Neck: No jvd Respiratory: clear to auscultation; No labored breathing Cardiovascular: No edema Gastrointestinal: soft Genitourinary - Male: other (Dia) Neurological: confused; No lethargic Skin: No diaphoresis Medications Medications Current Medications IV Flush (NS 3 ml) 3 ml PER PROTOCOL IV ; Start 04/13/18 at 18:30 Ondansetron HCl (Zofran Inj) 4 mg Q6H PRN IV NAUSEA AND/OR VOMITING; Start 04/13/18 at 18:30 Acetaminophen (Tylenol Supp) 650 mg Q6H PRN [place] PAIN LEVEL 1-3 OR FEVER; Start 04/13/18 at 18:30 Pantoprazole (Protonix Iv) 40 mg DAILY@06 IV Last administered on 04/18/18at 05:43; Admin Dose 40 MG; Start 04/14/18 at 06:00 Dextrose 1,000 ml @ 125 mls/hr Q8H IV Last administered on 04/18/18at 08:39; Admin Dose 100 MLS/HR; Start 04/13/18 at 18:30 Heparin Sodium (Porcine) (Heparin (5000 Units/1ml)) 5,000 unit BID SC ; Start 04/13/18 at 21:00; Status Hold Hydralazine HCl (Apresoline) 10 mg Q4H PRN IV SBP >170; Start 04/13/18 at 19:00 Miscellaneous Information 1 ea NOTE XX ; Start 04/13/18 at 19:30 Glucose (Glutose) 15 gm Q15M PRN PO DECREASED GLUCOSE; Start 04/13/18 at 19:30 Glucose (Glutose) 22.5 gm Q15M PRN PO DECREASED GLUCOSE; Start 12/29/18 at 19:30 Dextrose (D50w Syringe) 25 ml Q15M PRN IV DECREASED GLUCOSE; Start 04/13/18 at 19:30 Dextrose (D50w Syringe) 50 ml Q15M PRN IV DECREASED GLUCOSE; Start 04/13/18 at 19:30 Glucagon (Glucagen) 1 mg Q15M PRN IM DECREASED GLUCOSE; Start 04/13/18 at 19:30 Glucose (Glutose) 15 gm Q15M PRN BUCCAL DECREASED GLUCOSE; Start 04/13/18 at 19:30 Insulin Glargine (Lantus) 16 units DAILY@0800 SC Last administered on 04/18/18at 08:42; Admin Dose 16 UNITS; Start 04/16/18 at 08:00 Collagenase (Santyl) 1 applic DAILY TOP Last administered on 04/18/18at 08:38; Admin Dose 1 APPLIC; Start 04/15/18 at 11:00 Ceftriaxone Sodium 50 ml @ 100 mls/hr Q24H IVPB Last administered on 04/18/18at 11:19; Admin Dose 100 MLS/HR; Start 04/15/18 at 12:00 Albuterol/ Ipratropium (Duoneb) 3 ml Q6HWA RESP THERAPY HHN Last administered on 04/18/18at 13:38; Admin Dose 3 ML; Start 04/16/18 at 14:00 Albuterol/ Ipratropium (Duoneb) 3 ml Q2H RESP THERAPY PRN HHN shortness of breath; Start 04/16/18 at 10:00 Haloperidol (Haldol) 5 mg Q12H PRN IM agitation; Start 04/17/18 at 09:30 Insulin Aspart (Novolog Insulin Pen) (Adult SC Insulin - Moder... Q6 SC ; Start 04/18/18 at 18:00 Imaging Imaging IMPRESSION: 1. Age-related markings changes. 2. Nasogastric tube at the GE junction. RPTAT: [facility] An Barron Physician Date Time Electronically viewed and signed by An Barron, Physician on 04/18/2018 03:03 MEETA SPENCER MD Apr 18, 2018 13:42
--- NOTE | 2018-04-18 13:52 | CONS ---
Assessment/Plan Assessment/Plan Hospital Course A: 87 yo M with multiple comorbidities who p/w ams, for which neurology is consulted. UA +++, blood cx + LOVE + This is most clinically consistent with an acute and multifactorial toxic- metabolic on chronic encephalopathy. CTH is reassuringly without acute intracranial pathology. P: Ok to defer additional neuroimaging for now Await ammonia level Other medical management and supportive care per primary [place] as able Limit sedating medications where possible PT/OT/ST as tolerated Will follow clinically Result Diagram: 04/18/18 0455 04/18/18 0455 Results 24hrs Laboratory Tests Test 04/17/18 15:25 04/17/18 17:46 04/17/18 20:58 04/18/18 01:11 Bedside Glucose 190 196 220 254 H Test 04/18/18 04:55 04/18/18 05:12 04/18/18 08:39 White Blood Count 15.9 H Red Blood Count 3.75 L Hemoglobin 11.6 L Hematocrit 36.8 L Mean Corpuscular Volume 98.1 Mean Corpuscular 30.9 Hemoglobin Mean Corpuscular 31.5 L Hemoglobin Concent Red Cell Distribution 14.6 H Width Platelet Count 345 Mean Platelet Volume 12.5 H Immature Granulocytes % 4.600 H Neutrophils % 77.2 H Lymphocytes % 9.4 L Monocytes % 7.2 Eosinophils % 1.0 Basophils % 0.6 Nucleated Red Blood 0.0 Cells % Immature Granulocytes # 0.740 H Neutrophils # 12.3 H Lymphocytes # 1.5 Monocytes # 1.2 H Eosinophils # 0.2 Basophils # 0.1 Nucleated Red Blood 0.0 Cells # Sodium Level 160 H Potassium Level 4.0 Chloride Level 122 H Carbon Dioxide Level 24 Anion Gap 14 H Blood Urea Nitrogen 79 H Creatinine 1.77 H Est Glomerular Filtrat Rate mL/min Glucose Level 192 Calcium Level 9.3 Phosphorus Level 3.9 Magnesium Level 2.1 Bedside Glucose 205 208 Consultation Date/Type/Reason Admit Date/Time Apr 13, 2018 at 18:12 Type of Consult Neurology Reason for Consultation ams Requesting Provider: ROBERT JACKSON Date/Time of Note DATE: 04/18/18 TIME: 13:52 24 HR Interval Summary Free Text/Dictation Continues telemetry monitoring. No acute events or changes in pt condition reported. Exam Vital Signs Vitals Vital Signs Date Temp Pulse Resp B/P (MAP) Pulse Ox O2 O2 Flow FiO2 Time Delivery Rate 04/18/18 83 22 98 Nasal 2.0 13:28 Cannula 04/18/18 98.5 126/71 12:14 (89) 04/17/18 27 02:44 Intake and Output 04/17/18 04/17/18 04/18/18 1515:00 23:00 07:00 IntakeIntake Total 0 ml 40 ml OutputOutput Total 650 ml 600 ml BalanceBalance -650 ml -560 ml Exam PE: Gen Appearance: No Apparent Distress; On 2 pt restraints HEENT: Normocephalic Cardiovascular: Regular rate Abdomen: Soft Extremities: Dry NE: The patient was lethargic, yelling and incomprehensively verbal. Did not open eyes or follow commands. Cranial nerve examination was limited by mental status. Pupils were equal and r eactive to light. There was no afferent pupillary defect. Funduscopic examination was limited. Face was grossly symmetric, w/ present corneal and cough reflexes. Tone was spastic in UE. Muscle bulk was slightly diminished. I did not see fasciculations. The patient was moving UE spontaneously; withdrew lowers to noxious stimulation. Coordination and gait testing was limited by mental status. Arm and leg reflexes were symmetric. Nascimento's sign was absent. Plantar responses were flexor. PEACE JUSTIN NP Apr 18, 2018 13:52 VERONA CISNEROS Apr 18, 2018 19:55
--- NOTE | 2018-04-18 16:40 | CONS ---
Date/Time of Note Date/Time of Note DATE: 04/18/18 TIME: 16:38 Assessment/Plan Assessment/Plan Hospital Course No acute changes patient is lying comfortably in bed he is afebrile repeat blood cultures negative WBC 15.9 platelets 345 neutrophils 77.2 BUN 79 creatinine 1.77 Chest x-ray revealed no evidence for active cardiopulmonary disease Microbiology: Blood culture on admission grew alpha hemolytic strep and coag negative staph species, urine culture grew E. coli Antimicrobials: Rocephin Physical examination: Well-developed chronically ill-appearing elderly man who is in no distress. Head atraumatic normocephalic sclera nonicteric vehicle mucosa dry neck is supple chest rise symmetrical breath sounds diminished bases. Heart: S1-S2. Abdomen soft bowel sounds present extremities without cyanosis, trace edema Assessment: 1. Severe sepsis with polymicrobial bacteremia. 2D echo revealed no evidence f or vegetations 2. E. coli UTI 3. Acute encephalopathy 4. BPH 5. Hypertension Plan: Clinically stable, continue abx to complete 2 weeks, f/u neurology recommendations Result Diagram: 04/18/18 0455 04/18/18 0455 Results 24hrs Laboratory Tests Test 04/17/18 17:46 04/17/18 20:58 04/18/18 01:11 04/18/18 04:55 Bedside Glucose 196 220 254 H White Blood Count 15.9 H Red Blood Count 3.75 L Hemoglobin 11.6 L Hematocrit 36.8 L Mean Corpuscular Volume 98.1 Mean Corpuscular 30.9 Hemoglobin Mean Corpuscular 31.5 L Hemoglobin Concent Red Cell Distribution 14.6 H Width Platelet Count 345 Mean Platelet Volume 12.5 H Immature Granulocytes % 4.600 H Neutrophils % 77.2 H Lymphocytes % 9.4 L Monocytes % 7.2 Eosinophils % 1.0 Basophils % 0.6 Nucleated Red Blood 0.0 Cells % Immature Granulocytes # 0.740 H Neutrophils # 12.3 H Lymphocytes # 1.5 Monocytes # 1.2 H Eosinophils # 0.2 Basophils # 0.1 Nucleated Red Blood 0.0 Cells # Sodium Level 160 H Potassium Level 4.0 Chloride Level 122 H Carbon Dioxide Level 24 Anion Gap 14 H Blood Urea Nitrogen 79 H Creatinine 1.77 H Est Glomerular Filtrat Rate mL/min Glucose Level 192 Calcium Level 9.3 Phosphorus Level 3.9 Magnesium Level 2.1 Test 04/18/18 05:12 04/18/18 08:39 Bedside Glucose 205 208 Consultation Date/Type/Reason Admit Date/Time Apr 13, 2018 at 18:12 Initial Consult Date Type of Consult ID Requesting Provider: ROBERT JACKSON Exam/Review of Systems Vital Signs Vitals Vital Signs Date Temp Pulse Resp B/P (MAP) Pulse Ox O2 O2 Flow FiO2 Time Delivery Rate 04/18/18 98.5 81 18 130/63 98 16:17 (85) 04/18/18 Nasal 2.0 13:28 Cannula 04/17/18 27 02:44 Intake and Output 04/17/18 04/17/18 04/18/18 1515:00 23:00 07:00 IntakeIntake Total 0 ml 40 ml OutputOutput Total 650 ml 600 ml BalanceBalance -650 ml -560 ml Medications Medications Current Medications IV Flush (NS 3 ml) 3 ml PER PROTOCOL IV ; Start 04/13/18 at 18:30 Ondansetron HCl (Zofran Inj) 4 mg Q6H PRN IV NAUSEA AND/OR VOMITING; Start 04/13/18 at 18:30 Acetaminophen (Tylenol Supp) 650 mg Q6H PRN [place] PAIN LEVEL 1-3 OR FEVER; Start 04/13/18 at 18:30 Pantoprazole (Protonix Iv) 40 mg DAILY@06 IV Last administered on 04/18/18at 05:43; Admin Dose 40 MG; Start 04/14/18 at 06:00 Dextrose 1,000 ml @ 125 mls/hr Q8H IV Last administered on 04/18/18at 15:42; Admin Dose 125 MLS/HR; Start 04/13/18 at 18:30 Heparin Sodium (Porcine) (Heparin (5000 Units/1ml)) 5,000 unit BID SC ; Start 04/13/18 at 21:00; Status Hold Hydralazine HCl (Apresoline) 10 mg Q4H PRN IV SBP >170; Start 04/13/18 at 19:00 Miscellaneous Information 1 ea NOTE XX ; Start 04/13/18 at 19:30 Glucose (Glutose) 15 gm Q15M PRN PO DECREASED GLUCOSE; Start 04/13/18 at 19:30 Glucose (Glutose) 22.5 gm Q15M PRN PO DECREASED GLUCOSE; Start 04/13/18 at 19:30 Dextrose (D50w Syringe) 25 ml Q15M PRN IV DECREASED GLUCOSE; Start 04/13/18 at 19:30 Dextrose (D50w Syringe) 50 ml Q15M PRN IV DECREASED GLUCOSE; Start 04/13/18 at 19:30 Glucagon (Glucagen) 1 mg Q15M PRN IM DECREASED GLUCOSE; Start 04/13/18 at 19:30 Glucose (Glutose) 15 gm Q15M PRN BUCCAL DECREASED GLUCOSE; Start 04/13/18 at 19:30 Insulin Glargine (Lantus) 16 units DAILY@0800 SC Last administered on 04/18/18at 08:42; Admin Dose 16 UNITS; Start 04/16/18 at 08:00 Collagenase (Santyl) 1 applic DAILY TOP Last administered on 04/18/18at 08:38; Admin Dose 1 APPLIC; Start 04/15/18 at 11:00 Ceftriaxone Sodium 50 ml @ 100 mls/hr Q24H IVPB Last administered on 04/18/18at 11:19; Admin Dose 100 MLS/HR; Start 04/15/18 at 12:00 Albuterol/ Ipratropium (Duoneb) 3 ml Q6HWA RESP THERAPY HHN Last administered on 04/18/18at 13:38; Admin Dose 3 ML; Start 04/16/18 at 14:00 Albuterol/ Ipratropium (Duoneb) 3 ml Q2H RESP THERAPY PRN HHN shortness of breath; Start 04/16/18 at 10:00 Haloperidol (Haldol) 5 mg Q12H PRN IM agitation; Start 04/17/18 at 09:30 Insulin Aspart (Novolog Insulin Pen) (Adult SC Insulin - Moder... Q6 SC ; Start 04/18/18 at 18:00 JAMIE WORRELL NP Apr 18, 2018 16:39
--- NOTE | 2018-04-18 17:16 | PN ---
Date/Time of Note Date/Time of Note DATE: 04/18/18 TIME: 17:14 Objective Vitals Vital Signs Date Temp Pulse Resp B/P (MAP) Pulse Ox O2 O2 Flow FiO2 Time Delivery Rate 04/18/18 98.5 81 18 130/63 98 16:17 (85) 04/18/18 Nasal 2.0 13:28 Cannula 04/17/18 27 02:44 Intake and Output 04/17/18 04/17/18 04/18/18 1515:00 23:00 07:00 IntakeIntake Total 0 ml 40 ml OutputOutput Total 650 ml 600 ml BalanceBalance -650 ml -560 ml Results Result Diagram: 04/18/18 0455 04/18/18 0455 Medications Medications Current Medications IV Flush (NS 3 ml) 3 ml PER PROTOCOL IV ; Start 04/13/18 at 18:30 Ondansetron HCl (Zofran Inj) 4 mg Q6H PRN IV NAUSEA AND/OR VOMITING; Start 04/13/18 at 18:30 Acetaminophen (Tylenol Supp) 650 mg Q6H PRN [place] PAIN LEVEL 1-3 OR FEVER; Start 04/13/18 at 18:30 Pantoprazole (Protonix Iv) 40 mg DAILY@06 IV Last administered on 04/18/18at 05:43; Admin Dose 40 MG; Start 04/14/18 at 06:00 Dextrose 1,000 ml @ 125 mls/hr Q8H IV Last administered on 04/18/18at 15:42; Admin Dose 125 MLS/HR; Start 04/13/18 at 18:30 Heparin Sodium (Porcine) (Heparin (5000 Units/1ml)) 5,000 unit BID SC ; Start 04/13/18 at 21:00; Status Hold Hydralazine HCl (Apresoline) 10 mg Q4H PRN IV SBP >170; Start 04/13/18 at 19:00 Miscellaneous Information 1 ea NOTE XX ; Start 04/13/18 at 19:30 Glucose (Glutose) 15 gm Q15M PRN PO DECREASED GLUCOSE; Start 04/13/18 at 19:30 Glucose (Glutose) 22.5 gm Q15M PRN PO DECREASED GLUCOSE; Start 04/13/18 at 19:30 Dextrose (D50w Syringe) 25 ml Q15M PRN IV DECREASED GLUCOSE; Start 04/13/18 at 19:30 Dextrose (D50w Syringe) 50 ml Q15M PRN IV DECREASED GLUCOSE; Start 04/13/18 at 19:30 Glucagon (Glucagen) 1 mg Q15M PRN IM DECREASED GLUCOSE; Start 04/13/18 at 19:30 Glucose (Glutose) 15 gm Q15M PRN BUCCAL DECREASED GLUCOSE; Start 04/13/18 at 19:30 Insulin Glargine (Lantus) 16 units DAILY@0800 SC Last administered on 04/18/18at 08:42; Admin Dose 16 UNITS; Start 04/16/18 at 08:00 Collagenase (Santyl) 1 applic DAILY TOP Last administered on 04/18/18at 08:38; Admin Dose 1 APPLIC; Start 04/15/18 at 11:00 Ceftriaxone Sodium 50 ml @ 100 mls/hr Q24H IVPB Last administered on 04/18/18at 11:19; Admin Dose 100 MLS/HR; Start 04/15/18 at 12:00 Albuterol/ Ipratropium (Duoneb) 3 ml Q6HWA RESP THERAPY HHN Last administered on 04/18/18at 13:38; Admin Dose 3 ML; Start 04/16/18 at 14:00 Albuterol/ Ipratropium (Duoneb) 3 ml Q2H RESP THERAPY PRN HHN shortness of ho th; Start 04/16/18 at 10:00 Haloperidol (Haldol) 5 mg Q12H PRN IM agitation; Start 04/17/18 at 09:30 Insulin Aspart (Novolog Insulin Pen) (Adult SC Insulin - Moder... Q6 SC ; Start 04/18/18 at 18:00 VTE Prophylaxis Risk score (from Nsg)>0 risk: 7 SCD applied (from Nsg): Yes Lines/Catheters IV Catheter Type: Dia in Place: No Assessment/Plan Hospital Course Subjective Patient moaning when you touch him, more alert but not purposeful Objective Physical exam General: Patient is laying in bed encephalopathic, chronic, Mentation: Patient is not alert and oriented Head: Normocephalic atraumatic Eyes: EOMI, pupils reactive to light Neck: Supple, nontender, midline Respiratory: Clear to auscultation bilaterally Cardiovascular: regular rate, no obvious murmurs Gastrointestinal: non-tender to palpation, bowel sounds heard. Neurological: Moves all extremities spontaneously, but only to noxious stimuli Skin: No new skin lesions, pressure ulcers Assessment/Plan 1. Acute toxic encephalopathy - patient moaning to touch and voice - Most likely any worse encephalopathy secondary to UTI and bacteremia - will monitor for improvement in mentation -neurology consulted, CT noted -baseline apparently per [facility] (after calling them) is speaking random vietnamese words and being able to be fed. -will need to reassess after patient's sodium returns to normal ?wheezing/sob -happened overnight on 04/16/18, however lung sounds appear clear -duonebs for now Sepsis secondary to UTI and bacteremia - Urine cultures noted - Blood cultures noted - ECHO noted - ID consulted for antibiotic management - LA normalized - IV antibiotics on board and IVF LOVE, most likely prerenal vs ATN vs Obstruction, improving - Mild improvement in renal function but still severely impaired - Nephrology consulted and discussed with Dr. Crane, covering for Dr Song group - patient baseline Cr 02/2018 was 1.0 - IVF fluids on board and will monitor for improvement in function - Renal US results noted Hypernatremia, hypovolemic - nephro to manage, cont IVF - was on Lasix and hctz as outpatient which may be contributing to dehydration h/o DM - last A1c 02/2018 was 6.4 - Sugars very elevated which is most likely from D5 - ISS and accuchecks afib - on amio as outpt. will resume when tolerating PO intake. 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
[2018-04-18] MEDS ORDERED: INSULIN ASPART [NOVOLOG] 3 ML PEN SC SCH (18:00)
[2018-04-18] MEDS: INSULIN ASPART [NOVOLOG] 3 ML PEN SC SCH (21:02)
[2018-04-19] VITALS (17 sets, daily range): BP systolic 111–127; BP diastolic 51–76; PULSE 73–81; RESP 17–20
[2018-04-19] MEDS: INSULIN ASPART [NOVOLOG] 3 ML PEN SC SCH ×6 (01:23→20:24)
[2018-04-19] MEDS: DEXTROSE 5% 1,000 ML IV SCH ×4 (02:53→20:57)
[2018-04-19] MEDS: PANTOPRAZOLE 40 MG INJ IV SCH (05:21)
[2018-04-19] MEDS: COLLAGENASE 5 GM (UD JAR) TOP SCH (08:38)
[2018-04-19] MEDS: BALSAM PERU/CASTOR OIL 60 GM TUBE TOP SCH (08:39)
[2018-04-19] MEDS: ALBUTEROL/IPRATROPIUM (NEB) 3 ML AMP HHN SCH ×3 (09:13→21:15)
[2018-04-19] MEDS: INSULIN GLARGINE [LANTus] (100 UNITS/ML) SYG SC SCH ×2 (09:59→20:24)
--- NOTE | 2018-04-19 10:11 | CONS ---
Date/Time of Note Date/Time of Note DATE: 04/19/18 TIME: 10:10 Assessment/Plan Assessment/Plan Assessment/Plan 87 yo Male with 1) Pre Renal Azotemia 2) Dehydration 3) Hypernatremia 4) AMS 5) Anemia, Chronic 6) Sepsis 7) Underlying CKD unspecified at this time. Renal Function cont to improve Cont IVFs, decrease to 75 S/p NGT Free H20 flushes to q4hr. Renal US reviewed, No hydronephrosis. Result Diagram: 04/19/18 0459 04/19/18 0459 Results 24hrs Laboratory Tests Test 04/18/18 17:26 04/18/18 20:03 04/18/18 20:52 04/19/18 01:17 Bedside Glucose 317 H 245 H 231 H Sodium Level 148 H Test 04/19/18 04:59 04/19/18 05:20 04/19/18 06:26 04/19/18 08:37 White Blood Count 16.6 H Red Blood Count 3.59 L Hemoglobin 11.0 L Hematocrit 34.0 L Mean Corpuscular 94.7 Volume Mean Corpuscular 30.6 Hemoglobin Mean Corpuscular 32.4 Hemoglobin Concent Red Cell Distribution 14.6 H Width Platelet Count 352 Mean Platelet Volume 12.1 H Immature Granulocytes 8.200 H % Neutrophils % 74.1 Segmented Neutrophils 77 % (Manual) Band Neutrophils % 2 (Manual) Lymphocytes % 8.9 L Lymphocytes % 3 L (Manual) Reactive Lymphocytes 3 H % (Manual) Monocytes % 5.8 Monocytes % (Manual) 8 Eosinophils % 2.3 Eosinophils % 2 (Manual) Basophils % 0.7 Myelocytes % (Manual) 4 H Promyelocytes % 1 H (Manual) Nucleated Red Blood 0.0 Cells % Immature Granulocytes 1.360 H # Neutrophils # 12.3 H Neutrophils # 12.8 H (Manual) Band Neutrophils # 0.3 Lymphocytes (Manual) 0.4 L Lymphocytes # 1.5 Reactive Lymphocytes 0.4 H # Monocytes # 1.0 H Monocytes # (Manual) 1.3 H Eosinophils # 0.4 Basophils # 0.1 Myelocytes # 0.6 H Promyelocytes # 0.1 H Nucleated Red Blood 0.0 Cells # Platelet Estimate NORMAL Platelet Morphology @See below Comment Polychromasia 2+ Poikilocytosis 1+ Anisocytosis 1+ Microcytosis 1+ Sodium Level 150 H Potassium Level 3.7 Chloride Level 115 H Carbon Dioxide Level 24 Anion Gap 11 Blood Urea Nitrogen 64 H Creatinine 1.43 H Est Glomerular Filtrat Rate mL/min Glucose Level 205 Calcium Level 8.2 L Phosphorus Level 3.1 Magnesium Level 1.7 Ammonia 14 Bedside Glucose 230 H 218 Lab Scanned Report REFERENCE LAB Consultation Date/Type/Reason Admit Date/Time Apr 13, 2018 at 18:12 Initial Consult Date Type of Consult Renal Requesting Provider: ROBERT JACKSON 24 HR Interval Summary Free Text/Dictation No new events Constitutional: requiring O2 Exam/Review of Systems Vital Signs Vitals Vital Signs Date Temp Pulse Resp B/P (MAP) Pulse Ox O2 O2 Flow FiO2 Time Delivery Rate 04/19/18 77 09:16 04/19/18 Nasal 2.0 07:58 Cannula 04/19/18 98.0 18 125/58 94 07:42 (80) 04/17/18 27 02:44 Intake and Output 04/18/18 04/18/18 04/19/18 1515:00 23:00 07:00 IntakeIntake Total 50 ml 2495 ml 940 ml OutputOutput Total 400 ml 900 ml BalanceBalance 50 ml 2095 ml 40 ml Exam Constitutional: frail; No distress Eyes: EOMI Neck: No jvd Respiratory: clear to auscultation; No labored breathing Cardiovascular: regular rate and rhythm; No edema Gastrointestinal: soft Neurological: confused, lethargic Skin: No diaphoresis Medications Medications Current Medications IV Flush (NS 3 ml) 3 ml PER PROTOCOL IV ; Start 04/13/18 at 18:30 Ondansetron HCl (Zofran Inj) 4 mg Q6H PRN IV NAUSEA AND/OR VOMITING; Start 04/13/18 at 18:30 Acetaminophen (Tylenol Supp) 650 mg Q6H PRN [place] PAIN LEVEL 1-3 OR FEVER; Start 04/13/18 at 18:30 Pantoprazole (Protonix Iv) 40 mg DAILY@06 IV Last administered on 04/19/18at 05:21; Admin Dose 40 MG; Start 04/14/18 at 06:00 Dextrose 1,000 ml @ 125 mls/hr Q8H IV Last administered on 04/19/18at 08:52; Admin Dose 125 MLS/HR; Start 04/13/18 at 18:30 Heparin Sodium (Porcine) (Heparin (5000 Units/1ml)) 5,000 unit BID SC ; Start 04/13/18 at 21:00; Status Hold Hydralazine HCl (Apresoline) 10 mg Q4H PRN IV SBP >170; Start 04/13/18 at 19:00 Miscellaneous Information 1 ea NOTE XX ; Start 04/13/18 at 19:30 Glucose (Glutose) 15 gm Q15M PRN PO DECREASED GLUCOSE; Start 04/13/18 at 19:30 Glucose (Glutose) 22.5 gm Q15M PRN PO DECREASED GLUCOSE; Start 04/13/18 at 19:30 Dextrose (D50w Syringe) 25 ml Q15M PRN IV DECREASED GLUCOSE; Start 04/13/18 at 19:30 Dextrose (D50w Syringe) 50 ml Q15M PRN IV DECREASED GLUCOSE; Start 04/13/18 at 19:30 Glucagon (Glucagen) 1 mg Q15M PRN IM DECREASED GLUCOSE; Start 04/13/18 at 19:30 Glucose (Glutose) 15 gm Q15M PRN BUCCAL DECREASED GLUCOSE; Start 04/13/18 at 19:30 Insulin Glargine (Lantus) 16 units DAILY@0800 SC Last administered on 04/19/18at 09:59; Admin Dose 16 UNITS; Start 04/16/18 at 08:00 Collagenase (Santyl) 1 applic DAILY TOP Last administered on 04/19/18at 08:38; Admin Dose 1 APPLIC; Start 04/15/18 at 11:00 Ceftriaxone Sodium 50 ml @ 100 mls/hr Q24H IVPB Last administered on 04/18/18at 11:19; Admin Dose 100 MLS/HR; Start 04/15/18 at 12:00 Albuterol/ Ipratropium (Duoneb) 3 ml Q6HWA RESP THERAPY HHN Last administered on 04/18/18at 20:05; Admin Dose 3 ML; Start 04/16/18 at 14:00 Albuterol/ Ipratropium (Duoneb) 3 ml Q2H RESP THERAPY PRN HHN shortness of breath; Start 04/16/18 at 10:00 Haloperidol (Haldol) 5 mg Q12H PRN IM agitation; Start 04/17/18 at 09:30 Insulin Aspart (Novolog Insulin Pen) (Adult SC Insulin - Moder... Q4 SC Last administered on 04/19/18at 08:49; Admin Dose 4 UNIT; Start 04/18/18 at 21:00 Insulin Glargine (Lantus) 10 units DAILY@2000 SC Last administered on 04/18/18at 20:57; Admin Dose 10 UNITS; Start 04/18/18 at 20:00 MEETA SPENCER MD Apr 19, 2018 10:10
[2018-04-19] MEDS: CEFTRIAXONE 1 GM/50 ML (PMX) 50 ML IVPB SCH (11:47)
--- NOTE | 2018-04-19 13:07 | CONS ---
Assessment/Plan Assessment/Plan Hospital Course A: 87 yo M with multiple comorbidities who p/w ams, for which neurology is consulted. UA +++, blood cx + LOVE + This is most clinically consistent with an acute and multifactorial toxic- metabolic on chronic encephalopathy. CTH is reassuringly without acute intracranial pathology. P: Ok to defer additional neuroimaging for now Other medical management and supportive care per primary [place] as able Limit sedating medications where possible PT/OT/ST as tolerated Will follow clinically Result Diagram: 04/19/18 0459 04/19/18 0459 Results 24hrs Laboratory Tests Test 04/18/18 17:26 04/18/18 20:03 04/18/18 20:52 04/19/18 01:17 Bedside Glucose 317 H 245 H 231 H Sodium Level 148 H Test 04/19/18 04:59 04/19/18 05:20 04/19/18 06:26 04/19/18 08:37 White Blood Count 16.6 H Red Blood Count 3.59 L Hemoglobin 11.0 L Hematocrit 34.0 L Mean Corpuscular 94.7 Volume Mean Corpuscular 30.6 Hemoglobin Mean Corpuscular 32.4 Hemoglobin Concent Red Cell Distribution 14.6 H Width Platelet Count 352 Mean Platelet Volume 12.1 H Immature Granulocytes 8.200 H % Neutrophils % 74.1 Segmented Neutrophils 77 % (Manual) Band Neutrophils % 2 (Manual) Lymphocytes % 8.9 L Lymphocytes % 3 L (Manual) Reactive Lymphocytes 3 H % (Manual) Monocytes % 5.8 Monocytes % (Manual) 8 Eosinophils % 2.3 Eosinophils % 2 (Manual) Basophils % 0.7 Myelocytes % (Manual) 4 H Promyelocytes % 1 H (Manual) Nucleated Red Blood 0.0 Cells % Immature Granulocytes 1.360 H # Neutrophils # 12.3 H Neutrophils # 12.8 H (Manual) Band Neutrophils # 0.3 Lymphocytes (Manual) 0.4 L Lymphocytes # 1.5 Reactive Lymphocytes 0.4 H # Monocytes # 1.0 H Monocytes # (Manual) 1.3 H Eosinophils # 0.4 Basophils # 0.1 Myelocytes # 0.6 H Promyelocytes # 0.1 H Nucleated Red Blood 0.0 Cells # Platelet Estimate NORMAL Platelet Morphology @See below Comment Polychromasia 2+ Poikilocytosis 1+ Anisocytosis 1+ Microcytosis 1+ Sodium Level 150 H Potassium Level 3.7 Chloride Level 115 H Carbon Dioxide Level 24 Anion Gap 11 Blood Urea Nitrogen 64 H Creatinine 1.43 H Est Glomerular Filtrat Rate mL/min Glucose Level 205 Calcium Level 8.2 L Phosphorus Level 3.1 Magnesium Level 1.7 Ammonia 14 Bedside Glucose 230 H 218 Lab Scanned Report REFERENCE LAB Test 04/19/18 12:52 Bedside Glucose 159 Consultation Date/Type/Reason Admit Date/Time Apr 13, 2018 at 18:12 Type of Consult Neurology Reason for Consultation ams Requesting Provider: ROBERT JACKSON Date/Time of Note DATE: 04/19/18 TIME: 13:07 24 HR Interval Summary Free Text/Dictation Continues telemetry monitoring. No acute events or changes in pt condition reported. Subjective hx not possible: pt non-verbal Exam Vital Signs Vitals Vital Signs Date Temp Pulse Resp B/P (MAP) Pulse Ox O2 O2 Flow FiO2 Time Delivery Rate 04/19/18 77 12:33 04/19/18 126/66 99 Nasal 12:03 (86) Cannula 04/19/18 2.0 07:58 04/19/18 98.0 07:42 04/17/18 27 02:44 Intake and Output 04/18/18 04/18/18 04/19/18 1515:00 23:00 07:00 IntakeIntake Total 50 ml 2495 ml 940 ml OutputOutput Total 400 ml 900 ml BalanceBalance 50 ml 2095 ml 40 ml Exam PE: Gen Appearance: No Apparent Distress; On 2 pt restraints HEENT: Normocephalic Cardiovascular: Regular rate Abdomen: Soft Extremities: Dry NE: The patient was lethargic and nonverbal today. Tried to open eyes; did not follow commands. Cranial nerve examination was limited by mental status. Pupils were equal and reactive to light. There was no afferent pupillary defect. Funduscopic examination was limited. Face was grossly symmetric, w/ present corneal and cough reflexes. Tone was spastic in UE. Muscle bulk was slightly diminished. I did not see fasciculations. The patient was moving UE spontaneously; withdrew lowers to noxious stimulation. Coordination and gait testing was limited by mental status. Arm and leg reflexes were symmetric. Nascimento's sign was absent. Plantar responses were flexor. PEACE JUSTIN NP Apr 19, 2018 13:07
--- NOTE | 2018-04-19 15:35 | CONS ---
Date/Time of Note Date/Time of Note DATE: 04/19/18 TIME: 15:35 Assessment/Plan Assessment/Plan Hospital Course No acute events patient is in no distress looks comfortable, afebrile WBC 16.6 platelets 352 neutrophils 74.1 BUN 64 creatinine 1.43 Chest x-ray yesterday revealed clear lungs Microbiology: Blood culture on admission grew alpha hemolytic strep and coag negative staph species, urine culture grew E. coli Antimicrobials: Rocephin Physical examination: Well-developed chronically ill-appearing elderly man who is in no distress. Head atraumatic normocephalic sclera nonicteric vehicle mucosa dry neck is supple chest rise symmetrical breath sounds diminished bases. Heart: S1-S2. Abdomen soft bowel sounds present extremities without cyanosis, trace edema Assessment: 1. Severe sepsis with polymicrobial bacteremia. 2D echo revealed no evidence for vegetations 2. E. coli UTI 3. Acute encephalopathy 4. BPH 5. Hypertension Plan: Clinically stable, continue abx to complete 2 weeks, f/u neurology recommendations Result Diagram: 04/19/18 0459 04/19/18 0459 Results 24hrs Laboratory Tests Test 04/18/18 17:26 04/18/18 20:03 04/18/18 20:52 04/19/18 01:17 Bedside Glucose 317 H 245 H 231 H Sodium Level 148 H Test 04/19/18 04:59 04/19/18 05:20 04/19/18 06:26 04/19/18 08:37 White Blood Count 16.6 H Red Blood Count 3.59 L Hemoglobin 11.0 L Hematocrit 34.0 L Mean Corpuscular 94.7 Volume Mean Corpuscular 30.6 Hemoglobin Mean Corpuscular 32.4 Hemoglobin Concent Red Cell Distribution 14.6 H Width Platelet Count 352 Mean Platelet Volume 12.1 H Immature Granulocytes 8.200 H % Neutrophils % 74.1 Segmented Neutrophils 77 % (Manual) Band Neutrophils % 2 (Manual) Lymphocytes % 8.9 L Lymphocytes % 3 L (Manual) Reactive Lymphocytes 3 H % (Manual) Monocytes % 5.8 Monocytes % (Manual) 8 Eosinophils % 2.3 Eosinophils % 2 (Manual) Basophils % 0.7 Myelocytes % (Manual) 4 H Promyelocytes % 1 H (Manual) Nucleated Red Blood 0.0 Cells % Immature Granulocytes 1.360 H # Neutrophils # 12.3 H Neutrophils # 12.8 H (Manual) Band Neutrophils # 0.3 Lymphocytes (Manual) 0.4 L Lymphocytes # 1.5 Reactive Lymphocytes 0.4 H # Monocytes # 1.0 H Monocytes # (Manual) 1.3 H Eosinophils # 0.4 Basophils # 0.1 Myelocytes # 0.6 H Promyelocytes # 0.1 H Nucleated Red Blood 0.0 Cells # Platelet Estimate NORMAL Platelet Morphology @See below Comment Polychromasia 2+ Poikilocytosis 1+ Anisocytosis 1+ Microcytosis 1+ Sodium Level 150 H Potassium Level 3.7 Chloride Level 115 H Carbon Dioxide Level 24 Anion Gap 11 Blood Urea Nitrogen 64 H Creatinine 1.43 H Est Glomerular Filtrat Rate mL/min Glucose Level 205 Calcium Level 8.2 L Phosphorus Level 3.1 Magnesium Level 1.7 Ammonia 14 Bedside Glucose 230 H 218 Lab Scanned Report REFERENCE LAB Test 04/19/18 12:52 Bedside Glucose 159 Consultation Date/Type/Reason Admit Date/Time Apr 13, 2018 at 18:12 Initial Consult Date Type of Consult ID Requesting Provider: ROBERT JACKSON Exam/Review of Systems Vital Signs Vitals Vital Signs Date Temp Pulse Resp B/P (MAP) Pulse Ox O2 O2 Flow FiO2 Time Delivery Rate 04/19/18 2.0 14:53 04/19/18 86 20 98 Nasal 14:53 Cannula 04/19/18 98.4 124/71 14:33 (88) 04/17/18 27 02:44 Intake and Output 04/18/18 04/18/18 04/19/18 1515:00 23:00 07:00 IntakeIntake Total 50 ml 2495 ml 940 ml OutputOutput Total 400 ml 900 ml BalanceBalance 50 ml 2095 ml 40 ml Medications Medications Current Medications IV Flush (NS 3 ml) 3 ml PER PROTOCOL IV ; Start 04/13/18 at 18:30 Ondansetron HCl (Zofran Inj) 4 mg Q6H PRN IV NAUSEA AND/OR VOMITING; Start 04/13/18 at 18:30 Acetaminophen (Tylenol Supp) 650 mg Q6H PRN [place] PAIN LEVEL 1-3 OR FEVER; Start 04/13/18 at 18:30 Pantoprazole (Protonix Iv) 40 mg DAILY@06 IV Last administered on 04/19/18at 05:21; Admin Dose 40 MG; Start 04/14/18 at 06:00 Dextrose 1,000 ml @ 75 mls/hr [id number] IV Last administered on 04/19/18 08:52; Admin Dose 125 MLS/HR; Start 04/13/18 at 18:30 Heparin Sodium (Porcine) (Heparin (5000 Units/1ml)) 5,000 unit BID SC ; Start 04/13/18 at 21:00; Status Hold Hydralazine HCl (Apresoline) 10 mg Q4H PRN IV SBP >170; Start 04/13/18 at 19:00 Miscellaneous Information 1 ea NOTE XX ; Start 04/13/18 at 19:30 Glucose (Glutose) 15 gm Q15M PRN PO DECREASED GLUCOSE; Start 04/13/18 at 19:30 Glucose (Glutose) 22.5 gm Q15M PRN PO DECREASED GLUCOSE; Start 04/13/18 at 19:30 Dextrose (D50w Syringe) 25 ml Q15M PRN IV DECREASED GLUCOSE; Start 04/13/18 at 19:30 Dextrose (D50w Syringe) 50 ml Q15M PRN IV DECREASED GLUCOSE; Start 04/13/18 at 19:30 Glucagon (Glucagen) 1 mg Q15M PRN IM DECREASED GLUCOSE; Start 04/13/18 at 19:30 Glucose (Glutose) 15 gm Q15M PRN BUCCAL DECREASED GLUCOSE; Start 04/13/18 at 19:30 Insulin Glargine (Lantus) 16 units DAILY@0800 SC Last administered on 04/19/18 09:59; Admin Dose 16 UNITS; Start 04/16/18 at 08:00 Collagenase (Santyl) 1 applic DAILY TOP Last administered on 04/19/18 08:38; Admin Dose 1 APPLIC; Start 04/15/18 at 11:00 Ceftriaxone Sodium 50 ml @ 100 mls/hr Q24H IVPB Last administered on 04/19/18 11:47; Admin Dose 100 MLS/HR; Start 04/15/18 at 12:00 Albuterol/ Ipratropium (Duoneb) 3 ml Q6HWA RESP THERAPY HHN Last administered on 04/19/18 14:53; Admin Dose 3 ML; Start 04/16/18 at 14:00 Albuterol/ Ipratropium (Duoneb) 3 ml Q2H RESP THERAPY PRN HHN shortness of breath; Start 04/16/18 at 10:00 Haloperidol (Haldol) 5 mg Q12H PRN IM agitation; Start 04/17/18 at 09:30 Insulin Aspart (Novolog Insulin Pen) (Adult SC Insulin - Moder... Q4 SC Last administered on 04/19/18at 12:58; Admin Dose 2 UNIT; Start 04/18/18 at 21:00 Insulin Glargine (Lantus) 10 units DAILY@2000 SC Last administered on 04/18/18at 20:57; Admin Dose 10 UNITS; Start 04/18/18 at 20:00 JAMIE WORRELL NP Apr 19, 2018 15:35
--- NOTE | 2018-04-19 16:31 | PN ---
Date/Time of Note Date/Time of Note DATE: 04/19/18 TIME: 16:30 Objective Vitals Vital Signs Date Temp Pulse Resp B/P (MAP) Pulse Ox O2 O2 Flow FiO2 Time Delivery Rate 04/19/18 98.5 77 17 127/76 96 Room Air 16:10 (93) 04/19/18 2.0 14:53 04/17/18 27 02:44 Intake and Output 04/18/18 04/18/18 04/19/18 1515:00 23:00 07:00 IntakeIntake Total 50 ml 2495 ml 940 ml OutputOutput Total 400 ml 900 ml BalanceBalance 50 ml 2095 ml 40 ml Results Result Diagram: 04/19/18 0459 04/19/18 0459 Medications Medications Current Medications IV Flush (NS 3 ml) 3 ml PER PROTOCOL IV ; Start 04/13/18 at 18:30 Ondansetron HCl (Zofran Inj) 4 mg Q6H PRN IV NAUSEA AND/OR VOMITING; Start 04/13/18 at 18:30 Acetaminophen (Tylenol Supp) 650 mg Q6H PRN [place] PAIN LEVEL 1-3 OR FEVER; Start 04/13/18 at 18:30 Pantoprazole (Protonix Iv) 40 mg DAILY@06 IV Last administered on 04/19/18at 05:21; Admin Dose 40 MG; Start 04/14/18 at 06:00 Dextrose 1,000 ml @ 75 mls/hr [id number] IV Last administered on 04/19/18at 08:52; Admin Dose 125 MLS/HR; Start 04/13/18 at 18:30 Heparin Sodium (Porcine) (Heparin (5000 Units/1ml)) 5,000 unit BID SC ; Start 04/13/18 at 21:00; Status Hold Hydralazine HCl (Apresoline) 10 mg Q4H PRN IV SBP >170; Start 04/13/18 at 19:00 Miscellaneous Information 1 ea NOTE XX ; Start 04/13/18 at 19:30 Glucose (Glutose) 15 gm Q15M PRN PO DECREASED GLUCOSE; Start 04/13/18 at 19:30 Glucose (Glutose) 22.5 gm Q15M PRN PO DECREASED GLUCOSE; Start 04/13/18 at 19:30 Dextrose (D50w Syringe) 25 ml Q15M PRN IV DECREASED GLUCOSE; Start 04/13/18 at 19:30 Dextrose (D50w Syringe) 50 ml Q15M PRN IV DECREASED GLUCOSE; Start 04/13/18 at 19:30 Glucagon (Glucagen) 1 mg Q15M PRN IM DECREASED GLUCOSE; Start 04/13/18 at 19:30 Glucose (Glutose) 15 gm Q15M PRN BUCCAL DECREASED GLUCOSE; Start 04/13/18 at 19:30 Insulin Glargine (Lantus) 16 units DAILY@0800 SC Last administered on 04/19/18 09:59; Admin Dose 16 UNITS; Start 04/16/18 at 08:00 Collagenase (Santyl) 1 applic DAILY TOP Last administered on 04/19/18 08:38; Admin Dose 1 APPLIC; Start 04/15/18 at 11:00 Ceftriaxone Sodium 50 ml @ 100 mls/hr Q24H IVPB Last administered on 04/19/18 11:47; Admin Dose 100 MLS/HR; Start 04/15/18 at 12:00 Albuterol/ Ipratropium (Duoneb) 3 ml Q6HWA RESP THERAPY HHN Last administered on 04/19/18 14:53; Admin Dose 3 ML; Start 04/16/18 at 14:00 Albuterol/ Ipratropium (Duoneb) 3 ml Q2H RESP THERAPY PRN HHN shortness of breath; Start 04/16/18 at 10:00 Haloperidol (Haldol) 5 mg Q12H PRN IM agitation; Start 04/17/18 at 09:30 Insulin Aspart (Novolog Insulin Pen) (Adult SC Insulin - Moder... Q4 SC Last administered on 04/19/18 12:58; Admin Dose 2 UNIT; Start 04/18/18 at 21:00 Insulin Glargine (Lantus) 10 units DAILY@2000 SC Last administered on 04/18/18 20:57; Admin Dose 10 UNITS; Start 04/18/18 at 20:00 VTE Prophylaxis Risk score (from Nsg)>0 risk: 9 SCD applied (from Nsg): Yes Lines/Catheters IV Catheter Type: Dia in Place: No Assessment/Plan Hospital Course Subjective Patient moaning when you touch him, more alert but not purposeful Objective Physical exam General: Patient is laying in bed encephalopathic, chronic, Mentation: Patient is not alert and oriented Head: Normocephalic atraumatic Eyes: EOMI, pupils reactive to light Neck: Supple, nontender, midline Respiratory: Clear to auscultation bilaterally Cardiovascular: regular rate, no obvious murmurs Gastrointestinal: non-tender to palpation, bowel sounds heard. Neurological: Moves all extremities spontaneously, but only to noxious stimuli Skin: No new skin lesions, pressure ulcers Assessment/Plan 1. Acute toxic encephalopathy - patient moaning to touch and voice - Most likely any worse encephalopathy secondary to UTI and bacteremia - will monitor for improvement in mentation -neurology consulted, CT noted -baseline apparently per half-way (after calling them) is speaking random urdu words and being able to be fed. -will need to reassess after patient's sodium returns to normal ?wheezing/sob -happened overnight on 04/16/18, however lung sounds appear clear -duonebs for now Sepsis secondary to UTI and bacteremia - Urine cultures noted - Blood cultures noted - ECHO noted - ID consulted for antibiotic management - LA normalized - IV antibiotics on board and IVF LVOE, most likely prerenal vs ATN vs Obstruction, improving - Mild improvement in renal function but still severely impaired - Nephrology consulted and discussed with Dr. Crane, covering for Dr Song group - patient baseline Cr 02/2018 was 1.0 - IVF fluids on board and will monitor for improvement in function - Renal US results noted Hypernatremia, hypovolemic - nephro to manage, cont IVF - was on Lasix and hctz as outpatient which may be contributing to dehydration h/o DM - last A1c 02/2018 was 6.4 - Sugars very elevated which is most likely from D5 - ISS and accuchecks afib - on amio as outpt. will resume when tolerating PO intake. 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
[2018-04-20] VITALS (16 sets, daily range): BP systolic 113–137; BP diastolic 56–68; PULSE 77–85; RESP 18–20
[2018-04-20] MEDS: INSULIN ASPART [NOVOLOG] 3 ML PEN SC SCH ×6 (01:39→20:58)
[2018-04-20] MEDS: DEXTROSE 5% 1,000 ML IV SCH ×2 (02:39→17:25)
[2018-04-20] MEDS: PANTOPRAZOLE 40 MG INJ IV SCH (05:20)
[2018-04-20] MEDS: HALOPERIDOL 5 MG INJ IM PRN (05:20)
--- NOTE | 2018-04-20 06:53 | CONS ---
Date/Time of Note Date/Time of Note DATE: 04/20/18 TIME: 06:51 Assessment/Plan Assessment/Plan Assessment/Plan 7 yo Male with 1) Pre Renal Azotemia 2) Dehydration 3) Hypernatremia 4) AMS 5) Anemia, Chronic 6) Sepsis 7) Underlying CKD unspecified at this time. 8) Hypokalemia Renal Function cont to improve to baseline Non oliguric Cont IVFs at 75ml/hr Free H20 flushes to q4hr. Supplement K through NGT, ordered. Renal US reviewed, No hydronephrosis. Result Diagram: 04/20/18 0452 04/20/18 0452 Results 24hrs Laboratory Tests Test 04/19/18 08:37 04/19/18 12:52 04/19/18 17:37 04/19/18 19:59 Bedside Glucose 218 159 231 H 187 Test 04/20/18 01:36 04/20/18 04:52 04/20/18 05:11 Bedside Glucose 221 H 173 White Blood Count 22.9 #H Red Blood Count 3.83 L Hemoglobin 11.6 L Hematocrit 35.9 L Mean Corpuscular Volume 93.7 Mean Corpuscular 30.3 Hemoglobin Mean Corpuscular 32.3 Hemoglobin Concent Red Cell Distribution 14.4 Width Platelet Count 352 Mean Platelet Volume 12.1 H Immature Granulocytes % 9.600 H Neutrophils % Lymphocytes % Monocytes % Eosinophils % Basophils % Nucleated Red Blood 0.1 H Cells % Immature Granulocytes # 2.200 H Neutrophils # Lymphocytes # Monocytes # Eosinophils # Basophils # Nucleated Red Blood Cells # Sodium Level 145 H Potassium Level 3.3 L Chloride Level 109 Carbon Dioxide Level 23 Anion Gap 13 Blood Urea Nitrogen 54 H Creatinine 1.40 H Est Glomerular Filtrat Rate mL/min Glucose Level 181 Calcium Level 7.8 L Phosphorus Level 2.7 Magnesium Level 1.7 Consultation Date/Type/Reason Admit Date/Time Apr 13, 2018 at 18:12 Initial Consult Date Type of Consult Renal Requesting Provider: ROBERT JACKSON 24 HR Interval Summary Free Text/Dictation Altered, Sedated this am, NGT present, Good UO, Labs done. Constitutional: requiring O2 Exam/Review of Systems Vital Signs Vitals Vital Signs Date Temp Pulse Resp B/P (MAP) Pulse Ox O2 O2 Flow FiO2 Time Delivery Rate 04/20/18 98.0 79 18 114/59 96 Nasal 2.0 06:00 (77) Cannula 04/20/18 27 04:55 Intake and Output 04/19/18 04/19/18 04/20/18 1414:59 22:59 06:59 IntakeIntake Total 50 ml 2980 ml 2550 ml OutputOutput Total 900 ml 450 ml BalanceBalance 50 ml 2080 ml 2100 ml Exam Constitutional: frail; No distress Eyes: EOMI Neck: No jvd Respiratory: crackles/rales; No diminished breath sounds, No labored breathing Cardiovascular: regular rate and rhythm; No edema Gastrointestinal: soft; No distended Neurological: other (sedated) Skin: nl turgor; No diaphoresis Medications Medications Current Medications IV Flush (NS 3 ml) 3 ml PER PROTOCOL IV ; Start 04/13/18 at 18:30 Ondansetron HCl (Zofran Inj) 4 mg Q6H PRN IV NAUSEA AND/OR VOMITING; Start 04/13/18 at 18:30 Acetaminophen (Tylenol Supp) 650 mg Q6H PRN [place] PAIN LEVEL 1-3 OR FEVER; Start 04/13/18 at 18:30 Pantoprazole (Protonix Iv) 40 mg DAILY@06 IV Last administered on 04/20/18at 05:20; Admin Dose 40 MG; Start 04/14/18 at 06:00 Dextrose 1,000 ml @ 75 mls/hr [id number] IV Last administered on 04/19/18at 19:00; Admin Dose 75 MLS/HR; Start 04/13/18 at 18:30 Heparin Sodium (Porcine) (Heparin (5000 Units/1ml)) 5,000 unit BID SC ; Start 04/13/18 at 21:00; Status Hold Hydralazine HCl (Apresoline) 10 mg Q4H PRN IV SBP >170; Start 04/13/18 at 19:00 Miscellaneous Information 1 ea NOTE XX ; Start 04/13/18 at 19:30 Glucose (Glutose) 15 gm Q15M PRN PO DECREASED GLUCOSE; Start 04/13/18 at 19:30 Glucose (Glutose) 22.5 gm Q15M PRN PO DECREASED GLUCOSE; Start 04/13/18 at 19:30 Dextrose (D50w Syringe) 25 ml Q15M PRN IV DECREASED GLUCOSE; Start 04/13/18 at 19:30 Dextrose (D50w Syringe) 50 ml Q15M PRN IV DECREASED GLUCOSE; Start 04/13/18 at 19:30 Glucagon (Glucagen) 1 mg Q15M PRN IM DECREASED GLUCOSE; Start 04/13/18 at 19:30 Glucose (Glutose) 15 gm Q15M PRN BUCCAL DECREASED GLUCOSE; Start 04/13/18 at 19:30 Insulin Glargine (Lantus) 16 units DAILY@0800 SC Last administered on 04/19/18 09:59; Admin Dose 16 UNITS; Start 04/16/18 at 08:00 Collagenase (Santyl) 1 applic DAILY TOP Last administered on 04/19/18 08:38; Admin Dose 1 APPLIC; Start 04/15/18 at 11:00 Ceftriaxone Sodium 50 ml @ 100 mls/hr Q24H IVPB Last administered on 04/19/18 11:47; Admin Dose 100 MLS/HR; Start 04/15/18 at 12:00 Albuterol/ Ipratropium (Duoneb) 3 ml Q6HWA RESP THERAPY HHN Last administered on 04/19/18 21:15; Admin Dose 3 ML; Start 04/16/18 at 14:00 Albuterol/ Ipratropium (Duoneb) 3 ml Q2H RESP THERAPY PRN HHN shortness of breath; Start 04/16/18 at 10:00 Haloperidol (Haldol) 5 mg Q12H PRN IM agitation Last administered on 04/20/18 05:20; Admin Dose 5 MG; Start 04/17/18 at 09:30 Insulin Aspart (Novolog Insulin Pen) (Adult SC Insulin - Moder... Q4 SC Last ad ministered on 04/20/18 05:16; Admin Dose 2 UNIT; Start 04/18/18 at 21:00 Insulin Glargine (Lantus) 10 units DAILY@2000 SC Last administered on 04/19/18 20:24; Admin Dose 10 UNITS; Start 04/18/18 at 20:00 MEETA SPENCER MD Apr 20, 2018 06:53
[2018-04-20] MEDS ORDERED: POTASSIUM CHLORIDE 20 MEQ POWDER FOR ORAL SOLN PO ONE (07:00)
--- NOTE | 2018-04-20 08:02 | CONS ---
Assessment/Plan Assessment/Plan Hospital Course A: 87 yo M with multiple comorbidities who p/w ams, for which neurology is consulted. UA +++, blood cx + LOVE + This is most clinically consistent with an acute and multifactorial toxic- metabolic on chronic encephalopathy. CTH is reassuringly without acute intracranial pathology. P: Ok to defer additional neuroimaging for now Other medical management and supportive care per primary [place] as able Limit sedating medications where possible PT/OT/ST as tolerated Will follow clinically Result Diagram: 04/20/18 0452 04/20/18 0452 Results 24hrs Laboratory Tests Test 04/19/18 08:37 04/19/18 12:52 04/19/18 17:37 04/19/18 19:59 Bedside Glucose 218 159 231 H 187 Test 04/20/18 01:36 04/20/18 04:52 04/20/18 05:11 Bedside Glucose 221 H 173 White Blood Count 22.9 #H Red Blood Count 3.83 L Hemoglobin 11.6 L Hematocrit 35.9 L Mean Corpuscular Volume 93.7 Mean Corpuscular 30.3 Hemoglobin Mean Corpuscular 32.3 Hemoglobin Concent Red Cell Distribution 14.4 Width Platelet Count 352 Mean Platelet Volume 12.1 H Immature Granulocytes % 9.600 H Neutrophils % Segmented Neutrophils 69 % (Manual) Band Neutrophils % 4 (Manual) Lymphocytes % Lymphocytes % (Manual) 11 L Reactive Lymphocytes 1 H % (Manual) Monocytes % Monocytes % (Manual) 4 Eosinophils % Eosinophils % (Manual) 1 Basophils % Metamyelocytes % 3 H (manual) Myelocytes % (Manual) 7 H Nucleated Red Blood 1 H Cells % Immature Granulocytes # 2.200 H Neutrophils # Neutrophils # (Manual) 16.0 H Band Neutrophils # 0.9 H Lymphocytes (Manual) 2.5 Lymphocytes # Reactive Lymphocytes # 0.2 H Monocytes # Monocytes # (Manual) 0.9 Eosinophils # Basophils # Metamyelocytes # 0.6 H Myelocytes # 1.6 H Nucleated Red Blood Cells # Platelet Estimate NORMAL Giant Platelets 1 H Polychromasia 2+ Poikilocytosis 3+ Anisocytosis 1+ Microcytosis 1+ Tear Drop Cells 1+ Sodium Level 145 H Potassium Level 3.3 L Chloride Level 109 Carbon Dioxide Level 23 Anion Gap 13 Blood Urea Nitrogen 54 H Creatinine 1.40 H Est Glomerular Filtrat Rate mL/min Glucose Level 181 Calcium Level 7.8 L Phosphorus Level 2.7 Magnesium Level 1.7 Consultation Date/Type/Reason Admit Date/Time Apr 13, 2018 at 18:12 Type of Consult Neurology Reason for Consultation ams Requesting Provider: ROBERT JACKSON Date/Time of Note DATE: 04/20/18 TIME: 08:01 24 HR Interval Summary Free Text/Dictation Continues telemetry monitoring. No acute events or other issues reported overnight. Subjective hx not possible: pt non-verbal Exam Vital Signs Vitals Vital Signs Date Temp Pulse Resp B/P (MAP) Pulse Ox O2 O2 Flow FiO2 Time Delivery Rate 04/20/18 98.0 79 18 114/59 96 Nasal 2.0 06:00 (77) Cannula 04/20/18 27 04:55 Intake and Output 04/19/18 04/19/18 04/20/18 1515:00 23:00 07:00 IntakeIntake Total 50 ml 2980 ml 2550 ml OutputOutput Total 900 ml 450 ml BalanceBalance 50 ml 2080 ml 2100 ml Exam PE: Gen Appearance: No Apparent Distress; On 2 pt restraints HEENT: Normocephalic Cardiovascular: Regular rate Abdomen: Soft Extremities: Dry NE: The patient was lethargic and nonverbal today. Tried to open eyes; did not follow commands. Cranial nerve examination was limited by mental status. Pupils were equal and reactive to light. There was no afferent pupillary defect. Funduscopic examination was limited. Face was grossly symmetric, w/ present corneal and cough reflexes. Tone was spastic in UE. Muscle bulk was slightly diminished. I did not see fasciculations. The patient was moving UE spontaneously; withdrew lowers to noxious stimulation. Coordination and gait testing was limited by mental status. Arm and leg reflexes were symmetric. Nascimento's sign was absent. Plantar responses were flexor. PEACE JUSTIN NP Apr 20, 2018 08:02
[2018-04-20] MEDS: ALBUTEROL/IPRATROPIUM (NEB) 3 ML AMP HHN SCH ×3 (08:48→19:40)
[2018-04-20] MEDS: COLLAGENASE 5 GM (UD JAR) TOP SCH (09:11)
[2018-04-20] MEDS: BALSAM PERU/CASTOR OIL 60 GM TUBE TOP SCH (09:11)
[2018-04-20] MEDS: INSULIN GLARGINE [LANTus] (100 UNITS/ML) SYG SC SCH ×2 (09:19→21:06)
[2018-04-20] MEDS ORDERED: INSULIN GLARGINE [LANTus] (100 UNITS/ML) SYG SC ONE (10:00)
[2018-04-20] MEDS: CEFTRIAXONE 1 GM/50 ML (PMX) 50 ML IVPB SCH (11:34)
--- NOTE | 2018-04-20 13:28 | PN ---
Date/Time of Note Date/Time of Note DATE: 04/20/18 TIME: 13:28 Objective Vitals Vital Signs Date Temp Pulse Resp B/P (MAP) Pulse Ox O2 O2 Flow FiO2 Time Delivery Rate 04/20/18 80 12:00 04/20/18 98.3 20 126/60 96 11:22 (82) 04/20/18 Nasal 2.0 08:50 Cannula 04/20/18 27 04:55 Intake and Output 04/19/18 04/19/18 04/20/18 1515:00 23:00 07:00 IntakeIntake Total 50 ml 2980 ml 2550 ml OutputOutput Total 900 ml 450 ml BalanceBalance 50 ml 2080 ml 2100 ml Results Result Diagram: 04/20/18 0452 04/20/18 0452 Medications Medications Current Medications IV Flush (NS 3 ml) 3 ml PER PROTOCOL IV ; Start 04/13/18 at 18:30 Ondansetron HCl (Zofran Inj) 4 mg Q6H PRN IV NAUSEA AND/OR VOMITING; Start at 18:30 Acetaminophen (Tylenol Supp) 650 mg Q6H PRN [place] PAIN LEVEL 1-3 OR FEVER; Start 04/13/18 at 18:30 Pantoprazole (Protonix Iv) 40 mg DAILY@06 IV Last administered on 04/20/18at 05:20; Admin Dose 40 MG; Start 04/14/18 at 06:00 Dextrose 1,000 ml @ 75 mls/hr [id number] IV Last administered on 04/19/18at 19:00; Admin Dose 75 MLS/HR; Start 04/13/18 at 18:30 Heparin Sodium (Porcine) (Heparin (5000 Units/1ml)) 5,000 unit BID SC ; Start 04/13/18 at 21:00; Status Hold Hydralazine HCl (Apresoline) 10 mg Q4H PRN IV SBP >170; Start 04/13/18 at 19:00 Miscellaneous Information 1 ea NOTE XX ; Start 04/13/18 at 19:30 Glucose (Glutose) 15 gm Q15M PRN PO DECREASED GLUCOSE; Start 04/13/18 at 19:30 Glucose (Glutose) 22.5 gm Q15M PRN PO DECREASED GLUCOSE; Start 04/13/18 at 19:30 Dextrose (D50w Syringe) 25 ml Q15M PRN IV DECREASED GLUCOSE; Start 04/13/18 at 19:30 Dextrose (D50w Syringe) 50 ml Q15M PRN IV DECREASED GLUCOSE; Start 04/13/18 at 19:30 Glucagon (Glucagen) 1 mg Q15M PRN IM DECREASED GLUCOSE; Start 04/13/18 at 19:30 Glucose (Glutose) 15 gm Q15M PRN BUCCAL DECREASED GLUCOSE; Start 04/13/18 at 19:30 Insulin Glargine (Lantus) 16 units DAILY@0800 SC Last administered on 04/20/18 09:19; Admin Dose 16 UNITS; Start 04/16/18 at 08:00 Collagenase (Santyl) 1 applic DAILY TOP Last administered on 04/20/18 09:11; Admin Dose 1 APPLIC; Start 04/15/18 at 11:00 Ceftriaxone Sodium 50 ml @ 100 mls/hr Q24H IVPB Last administered on 04/20/18 11:34; Admin Dose 100 MLS/HR; Start 04/15/18 at 12:00 Albuterol/ Ipratropium (Duoneb) 3 ml Q6HWA RESP THERAPY HHN Last administered on 04/20/18 08:48; Admin Dose 3 ML; Start 04/16/18 at 14:00 Albuterol/ Ipratropium (Duoneb) 3 ml Q2H RESP THERAPY PRN HHN shortness of breath; Start 04/16/18 at 10:00 Haloperidol (Haldol) 5 mg Q12H PRN IM agitation Last administered on 04/20/18 05:20; Admin Dose 5 MG; Start 04/17/18 at 09:30 Insulin Aspart (Novolog Insulin Pen) (Adult SC Insulin - Moder... Q4 SC Last administered on 04/20/18 09:15; Admin Dose 6 UNIT; Start 04/18/18 at 21:00 Insulin Glargine (Lantus) 15 units DAILY@2000 SC ; Start 04/20/18 at 20:00 VTE Prophylaxis Risk score (from Nsg)>0 risk: 6 SCD applied (from Nsg): Yes Lines/Catheters IV Catheter Type: Dia in Place: No Assessment/Plan Hospital Course Subjective Patient moaning when you touch him, more alert but not purposeful Objective Physical exam General: Patient is laying in bed encephalopathic, chronic, Mentation: Patient is not alert and oriented Head: Normocephalic atraumatic Eyes: EOMI, pupils reactive to light Neck: Supple, nontender, midline Respiratory: Clear to auscultation bilaterally Cardiovascular: regular rate, no obvious murmurs Gastrointestinal: non-tender to palpation, bowel sounds heard. Neurological: Moves all extremities spontaneously, but only to noxious stimuli Skin: No new skin lesions, pressure ulcers Assessment/Plan 1. Acute toxic encephalopathy - patient moaning to touch and voice - Most likely any worse encephalopathy secondary to UTI and bacteremia - will monitor for improvement in mentation -neurology consulted, CT noted -baseline apparently per halfway (after calling them) is speaking random polish words and being able to be fed. -will need to reassess after patient's sodium returns to normal ?wheezing/sob -happened overnight on 04/16/18, however lung sounds appear clear -duonebs for now Sepsis secondary to UTI and bacteremia - Urine cultures noted - Blood cultures noted - ECHO noted - ID consulted for antibiotic management - LA normalized - IV antibiotics on board and IVF LOVE, most likely prerenal vs ATN vs Obstruction, improving - Mild improvement in renal function but still severely impaired - Nephrology consulted and discussed with Dr. Crane, covering for Dr Song group - patient baseline Cr 02/2018 was 1.0 - IVF fluids on board and will monitor for improvement in function - Renal US results noted Hypernatremia, hypovolemic - nephro to manage, cont IVF - was on Lasix and hctz as outpatient which may be contributing to dehydration h/o DM - last A1c 02/2018 was 6.4 - Sugars very elevated which is most likely from D5 - ISS and accuchecks afib - on amio as outpt. will resume when tolerating PO intake. 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
--- NOTE | 2018-04-20 19:41 | CONS ---
Date/Time of Note Date/Time of Note DATE: 04/20/18 TIME: 19:40 Assessment/Plan Assessment/Plan Hospital Course No acute events, looks comfortable, no fevers Chest x-ray 04/18/18 revealed clear lungs Microbiology: Blood culture on admission grew alpha hemolytic strep and coag negative staph species, urine culture grew E. coli Antimicrobials: Rocephin Physical examination: Well-developed chronically ill-appearing elderly man who is in no distress. Head atraumatic normocephalic sclera nonicteric vehicle mucosa dry neck is supple chest rise symmetrical breath sounds diminished bases. Heart: S1-S2. Abdomen soft bowel sounds present extremities without cyanosis, trace edema Assessment: 1. Severe sepsis with polymicrobial bacteremia. 2D echo revealed no evidence for vegetations 2. E. coli UTI 3. Acute encephalopathy 4. BPH 5. Hypertension Plan: Clinically stable, with ongoing leukocytosis, s/p Solumedrol IV on 04/16/18, continue abx to complete 2 weeks, repeat urine cx Result Diagram: 04/20/18 0452 04/20/18 0452 Results 24hrs Laboratory Tests Test 04/19/18 19:59 04/20/18 01:36 04/20/18 04:52 04/20/18 05:11 Bedside Glucose 187 221 H 173 White Blood Count 22.9 #H Red Blood Count 3.83 L Hemoglobin 11.6 L Hematocrit 35.9 L Mean Corpuscular Volume 93.7 Mean Corpuscular 30.3 Hemoglobin Mean Corpuscular 32.3 Hemoglobin Concent Red Cell Distribution 14.4 Width Platelet Count 352 Mean Platelet Volume 12.1 H Immature Granulocytes % 9.600 H Neutrophils % Segmented Neutrophils 69 % (Manual) Band Neutrophils % 4 (Manual) Lymphocytes % Lymphocytes % (Manual) 11 L Reactive Lymphocytes 1 H % (Manual) Monocytes % Monocytes % (Manual) 4 Eosinophils % Eosinophils % (Manual) 1 Basophils % Metamyelocytes % 3 H (manual) Myelocytes % (Manual) 7 H Nucleated Red Blood 1 H Cells % Immature Granulocytes # 2.200 H Neutrophils # Neutrophils # (Manual) 16.0 H Band Neutrophils # 0.9 H Lymphocytes (Manual) 2.5 Lymphocytes # Reactive Lymphocytes # 0.2 H Monocytes # Monocytes # (Manual) 0.9 Eosinophils # Basophils # Metamyelocytes # 0.6 H Myelocytes # 1.6 H Nucleated Red Blood Cells # Platelet Estimate NORMAL Giant Platelets 1 H Polychromasia 2+ Poikilocytosis 3+ Anisocytosis 1+ Microcytosis 1+ Tear Drop Cells 1+ Sodium Level 145 H Potassium Level 3.3 L Chloride Level 109 Carbon Dioxide Level 23 Anion Gap 13 Blood Urea Nitrogen 54 H Creatinine 1.40 H Est Glomerular Filtrat Rate mL/min Glucose Level 181 Calcium Level 7.8 L Phosphorus Level 2.7 Magnesium Level 1.7 Test 04/20/18 09:09 04/20/18 13:47 04/20/18 17:17 Bedside Glucose 239 H 257 H 247 H Consultation Date/Type/Reason Admit Date/Time Apr 13, 2018 at 18:12 Initial Consult Date Type of Consult ID Requesting Provider: ROBERT JACKSON Exam/Review of Systems Vital Signs Vitals Vital Signs Date Temp Pulse Resp B/P (MAP) Pulse Ox O2 O2 Flow FiO2 Time Delivery Rate 04/20/18 98.5 80 20 123/68 96 19:37 (86) 04/20/18 Nasal 2.0 14:54 Cannula 04/20/18 27 04:55 Intake and Output 04/19/18 04/19/18 04/20/18 1515:00 23:00 07:00 IntakeIntake Total 50 ml 2980 ml 2550 ml OutputOutput Total 900 ml 450 ml BalanceBalance 50 ml 2080 ml 2100 ml Medications Medications Current Medications IV Flush (NS 3 ml) 3 ml PER PROTOCOL IV ; Start 04/13/18 at 18:30 Ondansetron HCl (Zofran Inj) 4 mg Q6H PRN IV NAUSEA AND/OR VOMITING; Start 04/13/18 at 18:30 Acetaminophen (Tylenol Supp) 650 mg Q6H PRN [place] PAIN LEVEL 1-3 OR FEVER; Start 04/13/18 at 18:30 Pantoprazole (Protonix Iv) 40 mg DAILY@06 IV Last administered on 04/20/18at 05:20; Admin Dose 40 MG; Start 04/14/18 at 06:00 Dextrose 1,000 ml @ 75 mls/hr [id number] IV Last administered on 04/20/18at 17:25; Admin Dose 75 MLS/HR; Start 04/13/18 at 18:30 Heparin Sodium (Porcine) (Heparin (5000 Units/1ml)) 5,000 unit BID SC ; Start 04/13/18 at 21:00; Status Hold Hydralazine HCl (Apresoline) 10 mg Q4H PRN IV SBP >170; Start 04/13/18 at 19:00 Miscellaneous Information 1 ea NOTE XX ; Start 04/13/18 at 19:30 Glucose (Glutose) 15 gm Q15M PRN PO DECREASED GLUCOSE; Start 04/13/18 at 19:30 Glucose (Glutose) 22.5 gm Q15M PRN PO DECREASED GLUCOSE; Start 04/13/18 at 19:30 Dextrose (D50w Syringe) 25 ml Q15M PRN IV DECREASED GLUCOSE; Start 04/13/18 at 19:30 Dextrose (D50w Syringe) 50 ml Q15M PRN IV DECREASED GLUCOSE; Start 04/13/18 at 19:30 Glucagon (Glucagen) 1 mg Q15M PRN IM DECREASED GLUCOSE; Start 04/13/18 at 19:30 Glucose (Glutose) 15 gm Q15M PRN BUCCAL DECREASED GLUCOSE; Start 04/13/18 at 19:30 Insulin Glargine (Lantus) 16 units DAILY@0800 SC Last administered on 04/20/18 09:19; Admin Dose 16 UNITS; Start 04/16/18 at 08:00 Collagenase (Santyl) 1 applic DAILY TOP Last administered on 04/20/18 09:11; Admin Dose 1 APPLIC; Start 04/15/18 at 11:00 Ceftriaxone Sodium 50 ml @ 100 mls/hr Q24H IVPB Last administered on 04/20/18 11:34; Admin Dose 100 MLS/HR; Start 04/15/18 at 12:00 Albuterol/ Ipratropium (Duoneb) 3 ml Q6HWA RESP THERAPY HHN Last administered on 04/20/18 14:45; Admin Dose 3 ML; Start 04/16/18 at 14:00 Albuterol/ Ipratropium (Duoneb) 3 ml Q2H RESP THERAPY PRN HHN shortness of breath; Start 04/16/18 at 10:00 Haloperidol (Haldol) 5 mg Q12H PRN IM agitation Last administered on 04/20/18 05:20; Admin Dose 5 MG; Start 04/17/18 at 09:30 Insulin Aspart (Novolog Insulin Pen) (Adult SC Insulin - Moder... Q4 SC Last administered on 04/20/18at 17:22; Admin Dose 6 UNIT; Start 04/18/18 at 21:00 Insulin Glargine (Lantus) 15 units DAILY@2000 SC ; Start 04/20/18 at 20:00 JAMIE WORRELL NP Apr 20, 2018 19:41
[2018-04-21] VITALS (16 sets, daily range): BP systolic 96–118; BP diastolic 55–64; PULSE 79–98; RESP 20
[2018-04-21] MEDS: INSULIN ASPART [NOVOLOG] 3 ML PEN SC SCH ×6 (00:53→21:10)
[2018-04-21] MEDS: HALOPERIDOL 5 MG INJ IM PRN (04:25)
[2018-04-21] MEDS: PANTOPRAZOLE 40 MG INJ IV SCH (05:34)
[2018-04-21] MEDS: INSULIN GLARGINE [LANTus] (100 UNITS/ML) SYG SC SCH ×2 (07:34→21:09)
[2018-04-21] MEDS: ALBUTEROL/IPRATROPIUM (NEB) 3 ML AMP HHN SCH ×3 (08:01→21:19)
[2018-04-21] MEDS: DEXTROSE 5% 1,000 ML IV SCH (08:25)
[2018-04-21] MEDS: BALSAM PERU/CASTOR OIL 60 GM TUBE TOP SCH (08:53)
[2018-04-21] MEDS: COLLAGENASE 5 GM (UD JAR) TOP SCH (08:53)
[2018-04-21] MEDS: CEFTRIAXONE 1 GM/50 ML (PMX) 50 ML IVPB SCH (11:56)
[2018-04-21] MEDS ORDERED: VANCOMYCIN IV PER PHARMACY XX SCH (12:30)
--- NOTE | 2018-04-21 12:59 | PN ---
Date/Time of Note Date/Time of Note DATE: 04/21/18 TIME: 12:55 Objective Vitals Vital Signs Date Temp Pulse Resp B/P (MAP) Pulse Ox O2 O2 Flow FiO2 Time Delivery Rate 04/21/18 98.3 98 20 109/55 94 11:21 (73) 04/21/18 3.0 08:05 04/21/18 Nasal 07:46 Cannula 04/20/18 27 04:55 Intake and Output 04/20/18 04/20/18 04/21/18 1515:00 23:00 07:00 IntakeIntake Total 2230 ml OutputOutput Total 950 ml BalanceBalance 1280 ml Results Result Diagram: 04/21/18 0459 04/21/18 0459 Medications Medications Current Medications IV Flush (NS 3 ml) 3 ml PER PROTOCOL IV ; Start 04/13/18 at 18:30 Ondansetron HCl (Zofran Inj) 4 mg Q6H PRN IV NAUSEA AND/OR VOMITING; Start 04/13/18 at 18:30 Acetaminophen (Tylenol Supp) 650 mg Q6H PRN [place] PAIN LEVEL 1-3 OR FEVER; Start 04/13/18 at 18:30 Pantoprazole (Protonix Iv) 40 mg DAILY@06 IV Last administered on 04/21/18at 05:34; Admin Dose 40 MG; Start 04/14/18 at 06:00 Dextrose 1,000 ml @ 75 mls/hr [id number] IV Last administered on 04/21/18at 08:25; Admin Dose 75 MLS/HR; Start 04/13/18 at 18:30 Heparin Sodium (Porcine) (Heparin (5000 Units/1ml)) 5,000 unit BID SC ; Start 04/13/18 at 21:00; Status Hold Hydralazine HCl (Apresoline) 10 mg Q4H PRN IV SBP >170; Start 04/13/18 at 19:00 Miscellaneous Information 1 ea NOTE XX ; Start 04/13/18 at 19:30 Glucose (Glutose) 15 gm Q15M PRN PO DECREASED GLUCOSE; Start 04/13/18 at 19:30 Glucose (Glutose) 22.5 gm Q15M PRN PO DECREASED GLUCOSE; Start 04/13/18 at 19:30 Dextrose (D50w Syringe) 25 ml Q15M PRN IV DECREASED GLUCOSE; Start 04/13/18 at 19:30 Dextrose (D50w Syringe) 50 ml Q15M PRN IV DECREASED GLUCOSE; Start 04/13/18 at 19:30 Glucagon (Glucagen) 1 mg Q15M PRN IM DECREASED GLUCOSE; Start 04/13/18 at 19:30 Glucose (Glutose) 15 gm Q15M PRN BUCCAL DECREASED GLUCOSE; Start 04/13/18 at 19:30 Insulin Glargine (Lantus) 16 units DAILY@0800 SC Last administered on 04/21/18at 07:34; Admin Dose 16 UNITS; Start 04/16/18 at 08:00 Collagenase (Santyl) 1 applic DAILY TOP Last administered on 04/21/18at 08:53; Admin Dose 1 APPLIC; Start 04/15/18 at 11:00 Albuterol/ Ipratropium (Duoneb) 3 ml Q6HWA RESP THERAPY HHN Last administered on 04/21/18at 08:01; Admin Dose 3 ML; Start 04/16/18 at 14:00 Albuterol/ Ipratropium (Duoneb) 3 ml Q2H RESP THERAPY PRN HHN shortness of breath Last administered on 04/21/18at 05:48; Admin Dose 3 ML; Start 04/16/18 at 10:00 Haloperidol (Haldol) 5 mg Q12H PRN IM agitation Last administered on 04/21/18at 04:25; Admin Dose 5 MG; Start 04/17/18 at 09:30 Insulin Aspart (Novolog Insulin Pen) (Adult SC Insulin - Moder... Q4 SC Last administered on 04/21/18at 12:09; Admin Dose 10 UNIT; Start 04/18/18 at 21:00 Insulin Glargine (Lantus) 15 units DAILY@2000 SC Last administered on 04/20/18at 21:06; Admin Dose 15 UNITS; Start 04/20/18 at 20:00 Meropenem/Sodium Chloride 50 ml @ 100 mls/hr Q12 IVPB ; Start 04/21/18 at 13:00 Vancomycin HCl (Vanco Iv Per Pharmacy) VANCOMYCIN PER PHARMACY PER PROTOCOL XX ; Start 04/21/18 at 12:30 Vancomycin HCl 1.5 gm/Sodium Chloride 250 ml @ 83.333 mls/ hr ONCE@1400 IVPB ; Start 04/21/18 at 14:00; Stop 04/21/18 at 19:00 Vancomycin/Sodium Chloride 250 ml @ 125 mls/hr Q24H IVPB ; Start 04/22/18 at 14:00 VTE Prophylaxis Risk score (from Nsg)>0 risk: 6 SCD applied (from Nsg): Yes Lines/Catheters IV Catheter Type: Dia in Place: No Assessment/Plan Hospital Course Subjective Patient moaning when you touch him, more alert but not purposeful Objective Physical exam General: Patient is laying in bed encephalopathic, chronic, Mentation: Patient is not alert and oriented Head: Normocephalic atraumatic Eyes: EOMI, pupils reactive to light Neck: Supple, nontender, midline Respiratory: Clear to auscultation bilaterally Cardiovascular: regular rate, no obvious murmurs Gastrointestinal: non-tender to palpation, bowel sounds heard. Neurological: Moves all extremities spontaneously, but only to noxious stimuli Skin: No new skin lesions, pressure ulcers Assessment/Plan Acute toxic encephalopathy - patient moaning to touch and voice - will monitor for improvement in mentation -neurology consulted, CT noted -baseline apparently per snf (after calling them) is speaking random polish words and being able to be fed. -will need to reassess after patient's BUN improves per renal, sodium is now under control ?wheezing/sob -happened overnight on 04/16/18, however lung sounds appear clear -duonebs as needed Sepsis secondary to UTI and bacteremia - Urine cultures noted - Blood cultures noted - ECHO noted - ID consulted for antibiotic management - LA normalized - IV antibiotics per ID, white count jumped up today LOVE, most likely prerenal vs ATN vs Obstruction, improving - Mild improvement in renal function but still severely impaired - Nephrology consulted, Dr. Stephenson - patient baseline Cr 02/2018 was 1.0 - IVF fluids on board and will monitor for improvement in function - Renal US results noted Hypernatremia, hypovolemic - nephro to manage - was on Lasix and hctz as outpatient which may be contributing to dehydration - normalized, so will stop IVF, cont tube feeds with flushes h/o DM - last A1c 02/2018 was 6.4 - Sugars very elevated which is most likely from D5 - ISS and accuchecks afib - on amio as outpt. will resume HTN - was on lasix, hctz, and lisinopril - will hold in setting of LOVE - PRN hydralazine if needed Dementia/Alzheimer - on Namenda as outpatient BPH - on terazosin - Dia placed in ED psychosis - on valproic acid BID Disposition - ID consulted for antibiotic management for UTI and bacteremia - Nephrology on board for management of LOVE and hypernatremia -pending cultures -neurology consulted for encephalopathy -patient has a conservatorship and if does not improve soon after BUN and infection normalize, will need to decide between peg tube and comfort care ROBERT JACKSON Apr 21, 2018 12:58
[2018-04-21] MEDS ORDERED: VANCOMYCIN 1.5 GM in SOD CHLORIDE 0.9% 250 ML IVPB SCH (14:00)
--- NOTE | 2018-04-21 14:12 | CONS ---
Date/Time of Note Date/Time of Note DATE: 04/21/18 TIME: 14:12 Assessment/Plan Assessment/Plan Hospital Course Patient remains noncommunicative in no distress he is afebrile WBC today went up to 30.3 platelets 352 bands 6 BUN 60 creatinine 1.63 Chest x-ray 04/18/18 revealed clear lungs Microbiology: Blood culture on admission grew alpha hemolytic strep and coag negative staph species, urine culture grew E. coli Antimicrobials: Rocephin Physical examination: Well-developed chronically ill-appearing elderly man who is in no distress. Head atraumatic normocephalic sclera nonicteric vehicle mucosa dry neck is supple chest rise symmetrical breath sounds diminished bases. Heart: S1-S2. Abdomen soft bowel sounds present extremities without cyanosis, trace edema Assessment: 1. Severe sepsis with polymicrobial bacteremia. 2D echo revealed no evidence for vegetations 2. E. coli UTI 3. Acute encephalopathy 4. BPH 5. Hypertension Plan: Clinically unchanged, with worsening leukocytosis, were going to send stool for C. difficile and repeat cultures, change antibiotics to IV vancomycin, Merrem and oral Flagyl Result Diagram: 04/21/18 0459 04/21/18 0459 Results 24hrs Laboratory Tests Test 04/20/18 17:17 04/20/18 20:53 04/21/18 00:46 04/21/18 04:59 Bedside Glucose 247 H 260 H 218 White Blood Count 30.3 #H Red Blood Count 3.79 L Hemoglobin 11.7 L Hematocrit 35.0 L Mean Corpuscular Volume 92.3 Mean Corpuscular 30.9 Hemoglobin Mean Corpuscular 33.4 Hemoglobin Concent Red Cell Distribution 14.7 H Width Platelet Count 352 Mean Platelet Volume 12.2 H Immature Granulocytes % 10.700 H Neutrophils % Segmented Neutrophils 73 % (Manual) Band Neutrophils % 6 H (Manual) Lymphocytes % Lymphocytes % (Manual) 9 L Reactive Lymphocytes 1 H % (Manual) Monocytes % Monocytes % (Manual) 2 Eosinophils % Eosinophils % (Manual) 3 Basophils % Basophils % (Manual) 1 Metamyelocytes % 2 H (manual) Myelocytes % (Manual) 2 H Promyelocytes % (Manual) 1 H Nucleated Red Blood 1 H Cells % Immature Granulocytes # 3.240 H Neutrophils # Neutrophils # (Manual) 22.7 H Band Neutrophils # 1.8 H Lymphocytes (Manual) 2.7 Lymphocytes # Reactive Lymphocytes # 0.3 H Monocytes # Monocytes # (Manual) 0.6 Eosinophils # Basophils # Basophils # (Manual) 0.3 H Metamyelocytes # 0.6 H Myelocytes # 0.6 H Promyelocytes # 0.3 H Nucleated Red Blood Cells # Platelet Estimate NORMAL Giant Platelets 3 H Polychromasia 1+ Poikilocytosis 2+ Anisocytosis 1+ Sodium Level 140 Potassium Level 3.6 Chloride Level 108 Carbon Dioxide Level 22 Anion Gap 10 Blood Urea Nitrogen 60 H Creatinine 1.63 H Est Glomerular Filtrat Rate mL/min Glucose Level 206 Calcium Level 7.9 L Phosphorus Level 3.2 Magnesium Level 1.7 Test 04/21/18 05:37 04/21/18 08:51 04/21/18 12:04 Bedside Glucose 197 220 326 H Consultation Date/Type/Reason Admit Date/Time Apr 13, 2018 at 18:12 Initial Consult Date Type of Consult ID Requesting Provider: ROBERT JACKSON Exam/Review of Systems Vital Signs Vitals Vital Signs Date Temp Pulse Resp B/P (MAP) Pulse Ox O2 O2 Flow FiO2 Time Delivery Rate 04/21/18 96 12:00 04/21/18 98.3 20 109/55 94 11:21 (73) 04/21/18 3.0 08:05 04/21/18 Nasal 07:46 Cannula 04/20/18 27 04:55 Intake and Output 04/20/18 04/20/18 04/21/18 1515:00 23:00 07:00 IntakeIntake Total 2230 ml OutputOutput Total 950 ml BalanceBalance 1280 ml Medications Medications Current Medications IV Flush (NS 3 ml) 3 ml PER PROTOCOL IV ; Start 04/13/18 at 18:30 Ondansetron HCl (Zofran Inj) 4 mg Q6H PRN IV NAUSEA AND/OR VOMITING; Start 04/13/18 at 18:30 Acetaminophen (Tylenol Supp) 650 mg Q6H PRN [place] PAIN LEVEL 1-3 OR FEVER; Start 04/13/18 at 18:30 Pantoprazole (Protonix Iv) 40 mg DAILY@06 IV Last administered on 04/21/18at 05:34; Admin Dose 40 MG; Start 04/14/18 at 06:00 Heparin Sodium (Porcine) (Heparin (5000 Units/1ml)) 5,000 unit BID SC ; Start 04/13/18 at 21:00; Status Hold Hydralazine HCl (Apresoline) 10 mg Q4H PRN IV SBP >170; Start 04/13/18 at 19:00 Miscellaneous Information 1 ea NOTE XX ; Start 04/13/18 at 19:30 Glucose (Glutose) 15 gm Q15M PRN PO DECREASED GLUCOSE; Start 04/13/18 at 19:30 Glucose (Glutose) 22.5 gm Q15M PRN PO DECREASED GLUCOSE; Start 04/13/18 at 19:30 Dextrose (D50w Syringe) 25 ml Q15M PRN IV DECREASED GLUCOSE; Start 04/13/18 at 19:30 Dextrose (D50w Syringe) 50 ml Q15M PRN IV DECREASED GLUCOSE; Start 04/13/18 at 19:30 Glucagon (Glucagen) 1 mg Q15M PRN IM DECREASED GLUCOSE; Start 04/13/18 at 19:30 Glucose (Glutose) 15 gm Q15M PRN BUCCAL DECREASED GLUCOSE; Start 04/13/18 at 19:30 Insulin Glargine (Lantus) 16 units DAILY@0800 SC Last administered on 04/21/18 07:34; Admin Dose 16 UNITS; Start 04/16/18 at 08:00 Collagenase (Santyl) 1 applic DAILY TOP Last administered on 04/21/18 08:53; Admin Dose 1 APPLIC; Start 04/15/18 at 11:00 Albuterol/ Ipratropium (Duoneb) 3 ml Q6HWA RESP THERAPY HHN Last administered on 04/21/18 08:01; Admin Dose 3 ML; Start 04/16/18 at 14:00 Albuterol/ Ipratropium (Duoneb) 3 ml Q2H RESP THERAPY PRN HHN shortness of breath Last administered on 04/21/18 05:48; Admin Dose 3 ML; Start 04/16/18 at 10:00 Haloperidol (Haldol) 5 mg Q12H PRN IM agitation Last administered on 04/21/18 04:25; Admin Dose 5 MG; Start 04/17/18 at 09:30 Insulin Aspart (Novolog Insulin Pen) (Adult SC Insulin - Moder... Q4 SC Last administered on 04/21/18 12:09; Admin Dose 10 UNIT; Start 04/18/18 at 21:00 Insulin Glargine (Lantus) 15 units DAILY@2000 SC Last administered on 04/20/18at 21:06; Admin Dose 15 UNITS; Start 04/20/18 at 20:00 Meropenem/Sodium Chloride 50 ml @ 100 mls/hr Q12 IVPB ; Start 04/21/18 at 13:00 Vancomycin HCl (Vanco Iv Per Pharmacy) VANCOMYCIN PER PHARMACY PER PROTOCOL XX ; Start 04/21/18 at 12:30 Vancomycin HCl 1.5 gm/Sodium Chloride 250 ml @ 83.333 mls/ hr ONCE@1400 IVPB ; Start 04/21/18 at 14:00; Stop 04/21/18 at 19:00 Vancomycin/Sodium Chloride 250 ml @ 125 mls/hr Q24H IVPB ; Start 04/22/18 at 14:00 Amiodarone HCl (Cordarone) 100 mg QHS PO ; Start 04/21/18 at 21:00 Amiodarone HCl (Cordarone) 200 mg QAM PO ; Start 04/22/18 at 09:00 Memantine (Namenda) 5 mg BID PO ; Start 04/21/18 at 21:00 Aspirin (Aspirin) 81 mg DAILY PO ; Start 04/22/18 at 09:00 Metronidazole (Flagyl) 500 mg Q8 NGT ; Start 04/21/18 at 14:00 JAMIE WORRELL NP Apr 21, 2018 14:12
[2018-04-21] MEDS: MEROPENEM 500MG/50 ML (PMX) 50 ML IVPB SCH ×2 (14:52→21:12)
[2018-04-21] MEDS: metroNIDAZOLE 500 MG TAB NGT SCH ×2 (15:26→21:13)
--- NOTE | 2018-04-21 18:53 | CONS ---
Date/Time of Note Date/Time of Note DATE: 04/21/18 TIME: 18:51 Assessment/Plan Assessment/Plan Assessment/Plan 7 yo Male with 1) Pre Renal Azotemia 2) Dehydration 3) Hypernatremia 4) AMS 5) Anemia, Chronic 6) Sepsis 7) Underlying CKD unspecified at this time. 8) Hypokalemia Likely has Cdiff, Pending, ID following. Renal Function cont to improve to baseline Non oliguric Na Now Normal, Ok to DC D5W Free H20 flushes to q4hr. Supplement K through NGT, ordered. Renal US reviewed, No hydronephrosis. Result Diagram: 04/21/18 0459 04/21/18 0459 Results 24hrs Laboratory Tests Test 04/20/18 20:53 04/21/18 00:46 04/21/18 04:59 04/21/18 05:37 Bedside Glucose 260 H 218 197 White Blood Count 30.3 #H Red Blood Count 3.79 L Hemoglobin 11.7 L Hematocrit 35.0 L Mean Corpuscular Volume 92.3 Mean Corpuscular 30.9 Hemoglobin Mean Corpuscular 33.4 Hemoglobin Concent Red Cell Distribution 14.7 H Width Platelet Count 352 Mean Platelet Volume 12.2 H Immature Granulocytes % 10.700 H Neutrophils % Segmented Neutrophils 73 % (Manual) Band Neutrophils % 6 H (Manual) Lymphocytes % Lymphocytes % (Manual) 9 L Reactive Lymphocytes 1 H % (Manual) Monocytes % Monocytes % (Manual) 2 Eosinophils % Eosinophils % (Manual) 3 Basophils % Basophils % (Manual) 1 Metamyelocytes % 2 H (manual) Myelocytes % (Manual) 2 H Promyelocytes % (Manual) 1 H Nucleated Red Blood 1 H Cells % Immature Granulocytes # 3.240 H Neutrophils # Neutrophils # (Manual) 22.7 H Band Neutrophils # 1.8 H Lymphocytes (Manual) 2.7 Lymphocytes # Reactive Lymphocytes # 0.3 H Monocytes # Monocytes # (Manual) 0.6 Eosinophils # Basophils # Basophils # (Manual) 0.3 H Metamyelocytes # 0.6 H Myelocytes # 0.6 H Promyelocytes # 0.3 H Nucleated Red Blood Cells # Platelet Estimate NORMAL Giant Platelets 3 H Polychromasia 1+ Poikilocytosis 2+ Anisocytosis 1+ Sodium Level 140 Potassium Level 3.6 Chloride Level 108 Carbon Dioxide Level 22 Anion Gap 10 Blood Urea Nitrogen 60 H Creatinine 1.63 H Est Glomerular Filtrat Rate mL/min Glucose Level 206 Calcium Level 7.9 L Phosphorus Level 3.2 Magnesium Level 1.7 Test 04/21/18 08:51 04/21/18 12:04 04/21/18 17:39 Bedside Glucose 220 326 H 231 H Consultation Date/Type/Reason Admit Date/Time Apr 13, 2018 at 18:12 Initial Consult Date Type of Consult Renal Requesting Provider: ROBERT JACKSON 24 HR Interval Summary Free Text/Dictation Diarrhea Constitutional: No requiring O2 Exam/Review of Systems Vital Signs Vitals Vital Signs Date Temp Pulse Resp B/P (MAP) Pulse Ox O2 O2 Flow FiO2 Time Delivery Rate 04/21/18 91 16:00 04/21/18 2.0 15:38 04/21/18 98 Nasal 15:37 Cannula 04/21/18 98.0 20 106/56 15:22 (73) 04/20/18 27 04:55 Intake and Output 04/20/18 04/20/18 04/21/18 1515:00 23:00 07:00 IntakeIntake Total 1330 ml 2230 ml OutputOutput Total 600 ml 950 ml BalanceBalance 730 ml 1280 ml Exam Constitutional: No distress ENMT: mucosa pink and moist Respiratory: No diminished breath sounds, No labored breathing Gastrointestinal: soft; No distended Neurological: lethargic Skin: No diaphoresis Medications Medications Current Medications IV Flush (NS 3 ml) 3 ml PER PROTOCOL IV ; Start 04/13/18 at 18:30 Ondansetron HCl (Zofran Inj) 4 mg Q6H PRN IV NAUSEA AND/OR VOMITING; Start 04/13/18 at 18:30 Acetaminophen (Tylenol Supp) 650 mg Q6H PRN [place] PAIN LEVEL 1-3 OR FEVER; Start 04/13/18 at 18:30 Pantoprazole (Protonix Iv) 40 mg DAILY@06 IV Last administered on 04/21/18at 05:34; Admin Dose 40 MG; Start 04/14/18 at 06:00 Heparin Sodium (Porcine) (Heparin (5000 Units/1ml)) 5,000 unit BID SC ; Start 04/13/18 at 21:00; Status Hold Hydralazine HCl (Apresoline) 10 mg Q4H PRN IV SBP >170; Start 04/13/18 at 19:00 Miscellaneous Information 1 ea NOTE XX ; Start 04/13/18 at 19:30 Glucose (Glutose) 15 gm Q15M PRN PO DECREASED GLUCOSE; Start 04/13/18 at 19:30 Glucose (Glutose) 22.5 gm Q15M PRN PO DECREASED GLUCOSE; Start 04/13/18 at 19:30 Dextrose (D50w Syringe) 25 ml Q15M PRN IV DECREASED GLUCOSE; Start 04/13/18 at 19:30 Dextrose (D50w Syringe) 50 ml Q15M PRN IV DECREASED GLUCOSE; Start 04/13/18 at 19:30 Glucagon (Glucagen) 1 mg Q15M PRN IM DECREASED GLUCOSE; Start 04/13/18 at 19:30 Glucose (Glutose) 15 gm Q15M PRN BUCCAL DECREASED GLUCOSE; Start 04/13/18 at 19:30 Insulin Glargine (Lantus) 16 units DAILY@0800 SC Last administered on 04/21/18at 07:34; Admin Dose 16 UNITS; Start 04/16/18 at 08:00 Collagenase (Santyl) 1 applic DAILY TOP Last administered on 04/21/18 08:53; Admin Dose 1 APPLIC; Start 04/15/18 at 11:00 Albuterol/ Ipratropium (Duoneb) 3 ml Q6HWA RESP THERAPY HHN Last administered on 04/21/18 15:36; Admin Dose 3 ML; Start 04/16/18 at 14:00 Albuterol/ Ipratropium (Duoneb) 3 ml Q2H RESP THERAPY PRN HHN shortness of breath Last administered on 04/21/18at 05:48; Admin Dose 3 ML; Start 04/16/18 at 10:00 Haloperidol (Haldol) 5 mg Q12H PRN IM agitation Last administered on 04/21/18 04:25; Admin Dose 5 MG; Start 04/17/18 at 09:30 Insulin Aspart (Novolog Insulin Pen) (Adult SC Insulin - Moder... Q4 SC Last administered on 04/21/18at 17:45; Admin Dose 6 UNIT; Start 04/18/18 at 21:00 Insulin Glargine (Lantus) 15 units DAILY@2000 SC Last administered on 04/20/18at 21:06; Admin Dose 15 UNITS; Start 04/20/18 at 20:00 Meropenem/Sodium Chloride 50 ml @ 100 mls/hr Q12 IVPB Last administered on 04/21/18at 14:52; Admin Dose 100 MLS/HR; Start 04/21/18 at 13:00 Vancomycin HCl (Vanco Iv Per Pharmacy) VANCOMYCIN PER PHARMACY PER PROTOCOL XX ; Start 04/21/18 at 12:30 Vancomycin HCl 1.5 gm/Sodium Chloride 250 ml @ 83.333 mls/ hr ONCE@1400 IVPB Last administered on 04/21/18at 15:26; Admin Dose 83.333 MLS/HR; Start 04/21/18 at 14:00; Stop 04/21/18 at 19:00 Vancomycin/Sodium Chloride 250 ml @ 125 mls/hr Q24H IVPB ; Start 04/22/18 at 14:00 Amiodarone HCl (Cordarone) 100 mg QHS PO ; Start 04/21/18 at 21:00 Amiodarone HCl (Cordarone) 200 mg QAM PO ; Start 04/22/18 at 09:00 Memantine (Namenda) 5 mg BID PO ; Start 04/21/18 at 21:00 Aspirin (Aspirin) 81 mg DAILY PO ; Start 04/22/18 at 09:00 Metronidazole (Flagyl) 500 mg Q8 NGT Last administered on 04/21/18at 15:26; Admin Dose 500 MG; Start 04/21/18 at 14:00 MEETA SPENCER MD Apr 21, 2018 18:53
[2018-04-21] MEDS: AMIODARONE 200 MG TAB PO SCH (21:13)
[2018-04-21] MEDS: MEMANTINE 5 MG TAB PO SCH (21:14)
[2018-04-22] VITALS (18 sets, daily range): BP systolic 81–117; BP diastolic 51–79; PULSE 84–93; RESP 18–28
[2018-04-22] MEDS: INSULIN ASPART [NOVOLOG] 3 ML PEN SC SCH ×5 (01:15→17:53)
[2018-04-22] MEDS: PANTOPRAZOLE 40 MG INJ IV SCH (06:14)
[2018-04-22] MEDS: metroNIDAZOLE 500 MG TAB NGT SCH (06:15)
[2018-04-22] MEDS ORDERED: SOD CHLORIDE 0.9% 1,000 ML IV ONE (07:00)
[2018-04-22] MEDS: MEROPENEM 500MG/50 ML (PMX) 50 ML IVPB SCH ×2 (08:56→21:03)
[2018-04-22] MEDS: BALSAM PERU/CASTOR OIL 60 GM TUBE TOP SCH (09:00)
[2018-04-22] MEDS ORDERED: VITAMIN A & D 5 GM OINT PACKET TOP ONE (09:07)
--- NOTE | 2018-04-22 09:18 | PN ---
Date/Time of Note Date/Time of Note DATE: 04/22/18 TIME: 09:18 Assessment/Plan VTE Prophylaxis Risk score (from Ns)>0 risk: 6 SCD applied (from Ns): Yes Pharmacological prophylaxis: heparin Lines/Catheters IV Catheter Type (from Nrsg): Mid Line Urinary Cath still in place: Yes Reason Cath still needed: urinary retention Assessment/Plan Assessment/Plan 1. Acute toxic encephalopathy- improving - Patient appears at baseline per skilled nursing. unable to care for self or make needs known - Neurology consultation appreciated and CT results noted 2. Sepsis secondary to UTI and bacteremia - Blood and urine cultures noted - ID on board for antibiotics management - ECHO noted - LA normalized 3. LOVE, most likely prerenal vs ATN vs Obstruction - Patient with worsening renal function after fluids d/c yesterday. Will continue on gentle NS and monitor for improvement in renal function - Nephrology consultation appreciated - patient baseline Cr 02/2018 was 1.0 - Renal US results noted 4. Hypernatremia, hypovolemic- resolved - was on Lasix and hctz as outpatient which have contributed to dehydration 5. h/o DM - last A1c 02/2018 was 6.4 - ISS and accuchecks 6. afib - continue on home dose of Amiodarone 7. HTN - stable off home meds - Lasix, hctz, and lisinopril on hold secondary to LOVE - PRN hydralazine if needed 8. Dementia/Alzheimer - on Namenda as outpatient 9. BPH - on terazosin 10. psychosis - on valproic acid BID 11. Disposition - Renal function worsened and started on gentle IV fluids and monitor for improvement. - Palliative consulted given patients guarded prognosis and has no family to make decision. Conservator on board and if no improvement in overall condition will need to discuss plan of care regarding PEG vs hospice Result Diagram: 04/22/18 0500 04/22/18 0500 Results 24hrs Laboratory Tests Test 04/21/18 12:04 04/21/18 17:39 04/21/18 20:36 04/22/18 01:06 Bedside Glucose 326 H 231 H 280 H 154 Test 04/22/18 05:00 04/22/18 05:52 04/22/18 07:57 White Blood Count 38.9 #H Red Blood Count 3.77 L Hemoglobin 11.5 L Hematocrit 34.1 L Mean Corpuscular Volume 90.5 Mean Corpuscular 30.5 Hemoglobin Mean Corpuscular 33.7 Hemoglobin Concent Red Cell Distribution 14.9 H Width Platelet Count 225 # Mean Platelet Volume 13.3 H Immature Granulocytes % 8.400 H Neutrophils % Lymphocytes % Monocytes % Eosinophils % Basophils % Nucleated Red Blood 0.1 H Cells % Immature Granulocytes # 3.250 H Neutrophils # Lymphocytes # Monocytes # Eosinophils # Basophils # Nucleated Red Blood Cells # Sodium Level 135 Potassium Level 4.3 Chloride Level 105 Carbon Dioxide Level 19 L Anion Gap 11 Blood Urea Nitrogen 92 #H Creatinine 2.41 H Est Glomerular Filtrat Rate mL/min Glucose Level 149 # Calcium Level 7.5 L Phosphorus Level 3.9 Magnesium Level 1.8 Bedside Glucose 192 159 Subjective 24 Hr Interval Summary Free Text/Dictation Patient moaning but still unable to verbalize needs. With worsening renal function this am and TF on hold due to high residual. Exam/Review of Systems Vital Signs Vitals Vital Signs Date Temp Pulse Resp B/P (MAP) Pulse Ox O2 O2 Flow FiO2 Time Delivery Rate 04/22/18 86 09:16 04/22/18 98.4 28 105/57 07:56 (73) 04/22/18 97 05:59 04/22/18 2.0 28 03:51 04/21/18 Nasal 21:19 Cannula Intake and Output 04/21/18 04/21/18 04/22/18 1515:00 23:00 07:00 IntakeIntake Total 1380 ml 475 ml OutputOutput Total 350 ml 300 ml BalanceBalance 1030 ml 175 ml Exam General: Patient is laying in bed encephalopathic, chronic, not following commands, moaning Mentation: Patient is not alert and oriented Neck: Supple, nontender, midline Respiratory: Clear to auscultation bilaterally. no wheezing or rhonchi Cardiovascular: regular rate and rhythm, no obvious murmurs Gastrointestinal: soft, non-tender to palpation, nondistended, bowel sounds heard. Neurological: Moves all extremities spontaneously, but only to noxious stimuli. moans but does not follow commands Skin: No new skin lesions, pressure ulcers Medications Medications Current Medications IV Flush (NS 3 ml) 3 ml PER PROTOCOL IV ; Start 04/13/18 at 18:30 Ondansetron HCl (Zofran Inj) 4 mg Q6H PRN IV NAUSEA AND/OR VOMITING; Start 04/13/18 at 18:30 Acetaminophen (Tylenol Supp) 650 mg Q6H PRN [place] PAIN LEVEL 1-3 OR FEVER; Start 04/13/18 at 18:30 Pantoprazole (Protonix Iv) 40 mg DAILY@06 IV Last administered on 04/22/18 06:14; Admin Dose 40 MG; Start 04/14/18 at 06:00 Heparin Sodium (Porcine) (Heparin (5000 Units/1ml)) 5,000 unit BID SC ; Start 04/13/18 at 21:00; Status Hold Hydralazine HCl (Apresoline) 10 mg Q4H PRN IV SBP >170; Start 04/13/18 at 19:00 Miscellaneous Information 1 ea NOTE XX ; Start 04/13/18 at 19:30 Glucose (Glutose) 15 gm Q15M PRN PO DECREASED GLUCOSE; Start 04/13/18 at 19:30 Glucose (Glutose) 22.5 gm Q15M PRN PO DECREASED GLUCOSE; Start 04/13/18 at 19:30 Dextrose (D50w Syringe) 25 ml Q15M PRN IV DECREASED GLUCOSE; Start 04/13/18 at 19:30 Dextrose (D50w Syringe) 50 ml Q15M PRN IV DECREASED GLUCOSE; Start 04/13/18 at 19:30 Glucagon (Glucagen) 1 mg Q15M PRN IM DECREASED GLUCOSE; Start 04/13/18 at 19:30 Glucose (Glutose) 15 gm Q15M PRN BUCCAL DECREASED GLUCOSE; Start 04/13/18 at 19:30 Insulin Glargine (Lantus) 16 units DAILY@0800 SC Last administered on 04/21/18 07:34; Admin Dose 16 UNITS; Start 04/16/18 at 08:00 Collagenase (Santyl) 1 applic DAILY TOP Last administered on 04/21/18 08:53; Admin Dose 1 APPLIC; Start 04/15/18 at 11:00 Albuterol/ Ipratropium (Duoneb) 3 ml Q6HWA RESP THERAPY HHN Last administered on 04/21/18 21:19; Admin Dose 3 ML; Start 04/16/18 at 14:00 Albuterol/ Ipratropium (Duoneb) 3 ml Q2H RESP THERAPY PRN HHN shortness of breath Last administered on 04/21/18 05:48; Admin Dose 3 ML; Start 04/16/18 at 10:00 Haloperidol (Haldol) 5 mg Q12H PRN IM agitation Last administered on 04/21/18 04:25; Admin Dose 5 MG; Start 04/17/18 at 09:30 Insulin Aspart (Novolog Insulin Pen) (Adult SC Insulin - Moder... Q4 SC Last administered on 04/22/18 05:59; Admin Dose 4 UNIT; Start 04/18/18 at 21:00 Insulin Glargine (Lantus) 15 units DAILY@2000 SC Last administered on 04/21/18 21:09; Admin Dose 15 UNITS; Start 04/20/18 at 20:00 Meropenem/Sodium Chloride 50 ml @ 100 mls/hr Q12 IVPB Last administered on 08:56; Admin Dose 100 MLS/HR; Start 04/21/18 at 13:00 Vancomycin HCl (Vanco Iv Per Pharmacy) VANCOMYCIN PER PHARMACY PER PROTOCOL XX ; Start 04/21/18 at 12:30 Vancomycin/Sodium Chloride 250 ml @ 125 mls/hr Q24H IVPB ; Start 04/22/18 at 14:00 Amiodarone HCl (Cordarone) 100 mg QHS PO Last administered on 04/21/18 21:13; Admin Dose 100 MG; Start 04/21/18 at 21:00 Amiodarone HCl (Cordarone) 200 mg QAM PO ; Start 04/22/18 at 09:00 Memantine (Namenda) 5 mg BID PO Last administered on 04/21/18at 21:14; Admin Dose 5 MG; Start 04/21/18 at 21:00 Aspirin (Aspirin) 81 mg DAILY PO ; Start 04/22/18 at 09:00 Metronidazole (Flagyl) 500 mg Q8 NGT Last administered on 04/22/18 06:15; Admin Dose 500 MG; Start 04/21/18 at 14:00 JOHN CORRAL MD Apr 22, 2018 09:18
[2018-04-22] MEDS: COLLAGENASE 5 GM (UD JAR) TOP SCH (09:23)
[2018-04-22] MEDS ORDERED: SOD CHLORIDE 0.9% 1,000 ML IV SCH (09:30)
[2018-04-22] MEDS: ALBUTEROL/IPRATROPIUM (NEB) 3 ML AMP HHN SCH ×3 (09:36→20:02)
--- NOTE | 2018-04-22 12:08 | CONS ---
Date/Time of Note Date/Time of Note DATE: 04/22/18 TIME: 12:08 Assessment/Plan Assessment/Plan Assessment/Plan 87 yo Male with 1) Pre Renal Azotemia 2) Dehydration 3) Hypernatremia 4) AMS 5) Anemia, Chronic 6) Sepsis 7) Underlying CKD unspecified at this time. 8) Hypokalemia Likely has Cdiff, Pending, ID following. Pre Renal Azotemia Start NS Non oliguric Na Now Normal Free H20 flushes to q4hr. Supplement K through NGT, ordered. Renal US reviewed, No hydronephrosis. Result Diagram: 04/22/18 0500 04/22/18 0500 Results 24hrs Laboratory Tests Test 04/21/18 17:39 04/21/18 20:36 04/22/18 01:06 04/22/18 05:00 Bedside Glucose 231 H 280 H 154 White Blood Count 38.9 #H Red Blood Count 3.77 L Hemoglobin 11.5 L Hematocrit 34.1 L Mean Corpuscular Volume 90.5 Mean Corpuscular 30.5 Hemoglobin Mean Corpuscular 33.7 Hemoglobin Concent Red Cell Distribution 14.9 H Width Platelet Count 225 # Mean Platelet Volume 13.3 H Immature Granulocytes % 8.400 H Neutrophils % Segmented Neutrophils 77 % (Manual) Band Neutrophils % 8 H (Manual) Lymphocytes % Lymphocytes % (Manual) 5 L Monocytes % Monocytes % (Manual) 3 Eosinophils % Basophils % Myelocytes % (Manual) 6 H Promyelocytes % (Manual) 1 H Nucleated Red Blood 0.1 H Cells % Immature Granulocytes # 3.250 H Neutrophils # Neutrophils # (Manual) 31.2 H Band Neutrophils # 3.1 H Lymphocytes (Manual) 1.9 Lymphocytes # Monocytes # Monocytes # (Manual) 1.1 H Eosinophils # Basophils # Myelocytes # 2.3 H Promyelocytes # 0.3 H Nucleated Red Blood Cells # Platelet Estimate NORMAL Giant Platelets 1 H Polychromasia 2+ Poikilocytosis 2+ Anisocytosis 1+ Microcytosis 1+ Sodium Level 135 Potassium Level 4.3 Chloride Level 105 Carbon Dioxide Level 19 L Anion Gap 11 Blood Urea Nitrogen 92 #H Creatinine 2.41 H Est Glomerular Filtrat Rate mL/min Glucose Level 149 # Calcium Level 7.5 L Phosphorus Level 3.9 Magnesium Level 1.8 Test 04/22/18 05:52 04/22/18 07:57 Bedside Glucose 192 159 Consultation Date/Type/Reason Admit Date/Time Apr 13, 2018 at 18:12 Initial Consult Date Type of Consult Renal Requesting Provider: ROBERT JACKSON 24 HR Interval Summary Constitutional: requiring O2 Exam/Review of Systems Vital Signs Vitals Vital Signs Date Temp Pulse Resp B/P (MAP) Pulse Ox O2 O2 Flow FiO2 Time Delivery Rate 04/22/18 87 20 98 Nasal 2.0 09:47 Cannula 04/22/18 98.4 105/57 07:56 (73) 04/22/18 28 03:51 Intake and Output 04/21/18 04/21/18 04/22/18 1515:00 23:00 07:00 IntakeIntake Total 1380 ml 475 ml OutputOutput Total 350 ml 300 ml BalanceBalance 1030 ml 175 ml Exam Constitutional: frail; No distress ENMT: mucosa pink and moist Neck: No jvd Respiratory: No crackles/rales, No labored breathing Cardiovascular: No edema Gastrointestinal: soft Neurological: confused Medications Medications Current Medications IV Flush (NS 3 ml) 3 ml PER PROTOCOL IV ; Start 04/13/18 at 18:30 Ondansetron HCl (Zofran Inj) 4 mg Q6H PRN IV NAUSEA AND/OR VOMITING; Start 04/13/18 at 18:30 Acetaminophen (Tylenol Supp) 650 mg Q6H PRN [place] PAIN LEVEL 1-3 OR FEVER; Start 04/13/18 at 18:30 Pantoprazole (Protonix Iv) 40 mg DAILY@06 IV Last administered on 04/22/18at 06:14; Admin Dose 40 MG; Start 04/14/18 at 06:00 Heparin Sodium (Porcine) (Heparin (5000 Units/1ml)) 5,000 unit BID SC ; Start 04/13/18 at 21:00; Status Hold Hydralazine HCl (Apresoline) 10 mg Q4H PRN IV SBP >170; Start 04/13/18 at 19:00 Miscellaneous Information 1 ea NOTE XX ; Start 04/13/18 at 19:30 Glucose (Glutose) 15 gm Q15M PRN PO DECREASED GLUCOSE; Start 04/13/18 at 19:30 Glucose (Glutose) 22.5 gm Q15M PRN PO DECREASED GLUCOSE; Start 04/13/18 at 19:30 Dextrose (D50w Syringe) 25 ml Q15M PRN IV DECREASED GLUCOSE; Start 04/13/18 at 19:30 Dextrose (D50w Syringe) 50 ml Q15M PRN IV DECREASED GLUCOSE; Start 04/13/18 at 19:30 Glucagon (Glucagen) 1 mg Q15M PRN IM DECREASED GLUCOSE; Start 04/13/18 at 19:3 0 Glucose (Glutose) 15 gm Q15M PRN BUCCAL DECREASED GLUCOSE; Start 04/13/18 at 19:30 Insulin Glargine (Lantus) 16 units DAILY@0800 SC Last administered on 04/21/18 07:34; Admin Dose 16 UNITS; Start 04/16/18 at 08:00 Collagenase (Santyl) 1 applic DAILY TOP Last administered on 04/22/18 09:23; Admin Dose 1 APPLIC; Start 04/15/18 at 11:00 Albuterol/ Ipratropium (Duoneb) 3 ml Q6HWA RESP THERAPY HHN Last administered on 04/22/18 09:36; Admin Dose 3 ML; Start 04/16/18 at 14:00 Albuterol/ Ipratropium (Duoneb) 3 ml Q2H RESP THERAPY PRN HHN shortness of breath Last administered on 04/21/18 05:48; Admin Dose 3 ML; Start 04/16/18 at 10:00 Haloperidol (Haldol) 5 mg Q12H PRN IM agitation Last administered on 04/21/18 04:25; Admin Dose 5 MG; Start 04/17/18 at 09:30 Insulin Aspart (Novolog Insulin Pen) (Adult SC Insulin - Moder... Q4 SC Last administered on 04/22/18 05:59; Admin Dose 4 UNIT; Start 04/18/18 at 21:00 Insulin Glargine (Lantus) 15 units DAILY@2000 SC Last administered on 04/21/18 21:09; Admin Dose 15 UNITS; Start 04/20/18 at 20:00 Meropenem/Sodium Chloride 50 ml @ 100 mls/hr Q12 IVPB Last administered on 04/22/18 08:56; Admin Dose 100 MLS/HR; Start 04/21/18 at 13:00 Vancomycin HCl (Vanco Iv Per Pharmacy) VANCOMYCIN PER PHARMACY PER PROTOCOL XX ; Start 04/21/18 at 12:30 Vancomycin/Sodium Chloride 250 ml @ 125 mls/hr Q24H IVPB ; Start 04/22/18 at 14:00 Amiodarone HCl (Cordarone) 100 mg QHS PO Last administered on 04/21/18at 21:13; Admin Dose 100 MG; Start 04/21/18 at 21:00 Amiodarone HCl (Cordarone) 200 mg QAM PO ; Start 04/22/18 at 09:00 Memantine (Namenda) 5 mg BID PO Last administered on 04/21/18at 21:14; Admin Dose 5 MG; Start 04/21/18 at 21:00 Aspirin (Aspirin) 81 mg DAILY PO ; Start 04/22/18 at 09:00 Metronidazole (Flagyl) 500 mg Q8 NGT Last administered on 04/22/18at 06:15; Admin Dose 500 MG; Start 04/21/18 at 14:00 Sodium Chloride 1,000 ml @ 50 mls/hr Q20H IV Last administered on 04/22/18at 09:34; Admin Dose 50 MLS/HR; Start 04/22/18 at 09:30; Stop 04/23/18 at 05:29 MEETA SPENCER MD Apr 22, 2018 12:08
--- NOTE | 2018-04-22 12:20 | CONS ---
Assessment/Plan Assessment/Plan Hospital Course A: 87 yo M with multiple comorbidities who p/w ams, for which neurology is consulted. UA +++, blood cx + LOVE + This is most clinically consistent with an acute and multifactorial toxic- metabolic on chronic encephalopathy. CTH is reassuringly without acute intracranial pathology. P: Ok to defer additional neuroimaging for now Other medical management and supportive care per primary [place] as able Limit sedating medications where possible PT/OT/ST as tolerated Will follow clinically Result Diagram: 04/22/18 0500 04/22/18 0500 Results 24hrs Laboratory Tests Test 04/21/18 17:39 04/21/18 20:36 04/22/18 01:06 04/22/18 05:00 Bedside Glucose 231 H 280 H 154 White Blood Count 38.9 #H Red Blood Count 3.77 L Hemoglobin 11.5 L Hematocrit 34.1 L Mean Corpuscular Volume 90.5 Mean Corpuscular 30.5 Hemoglobin Mean Corpuscular 33.7 Hemoglobin Concent Red Cell Distribution 14.9 H Width Platelet Count 225 # Mean Platelet Volume 13.3 H Immature Granulocytes % 8.400 H Neutrophils % Segmented Neutrophils 77 % (Manual) Band Neutrophils % 8 H (Manual) Lymphocytes % Lymphocytes % (Manual) 5 L Monocytes % Monocytes % (Manual) 3 Eosinophils % Basophils % Myelocytes % (Manual) 6 H Promyelocytes % (Manual) 1 H Nucleated Red Blood 0.1 H Cells % Immature Granulocytes # 3.250 H Neutrophils # Neutrophils # (Manual) 31.2 H Band Neutrophils # 3.1 H Lymphocytes (Manual) 1.9 Lymphocytes # Monocytes # Monocytes # (Manual) 1.1 H Eosinophils # Basophils # Myelocytes # 2.3 H Promyelocytes # 0.3 H Nucleated Red Blood Cells # Platelet Estimate NORMAL Giant Platelets 1 H Polychromasia 2+ Poikilocytosis 2+ Anisocytosis 1+ Microcytosis 1+ Sodium Level 135 Potassium Level 4.3 Chloride Level 105 Carbon Dioxide Level 19 L Anion Gap 11 Blood Urea Nitrogen 92 #H Creatinine 2.41 H Est Glomerular Filtrat Rate mL/min Glucose Level 149 # Calcium Level 7.5 L Phosphorus Level 3.9 Magnesium Level 1.8 Test 04/22/18 05:52 04/22/18 07:57 Bedside Glucose 192 159 Consultation Date/Type/Reason Admit Date/Time Apr 13, 2018 at 18:12 Type of Consult Neurology Reason for Consultation ams Requesting Provider: ROBERT JACKSON Date/Time of Note DATE: 04/22/18 TIME: 12:19 24 HR Interval Summary Free Text/Dictation Continues telemetry monitoring. No acute events or changes in pt condition reported. Exam Vital Signs Vitals Vital Signs Date Temp Pulse Resp B/P (MAP) Pulse Ox O2 O2 Flow FiO2 Time Delivery Rate 04/22/18 87 20 98 Nasal 2.0 09:47 Cannula 04/22/18 98.4 105/57 07:56 (73) 04/22/18 28 03:51 Intake and Output 04/21/18 04/21/18 04/22/18 1414:59 22:59 06:59 IntakeIntake Total 1380 ml 475 ml OutputOutput Total 350 ml 300 ml BalanceBalance 1030 ml 175 ml Exam PE: Gen Appearance: No Apparent Distress; On 2 pt restraints HEENT: Normocephalic Cardiovascular: Regular rate Abdomen: Soft Extremities: Dry NE: The patient was lethargic and nonverbal today. Tried to open eyes; did not follow commands. Cranial nerve examination was limited by mental status. Pupils were equal and reactive to light. There was no afferent pupillary defect. Funduscopic examination was limited. Face was grossly symmetric, w/ present corneal and cough reflexes. Tone was spastic in UE. Muscle bulk was slightly diminished. I did not see fasciculations. The patient withdrew all extremities to noxious stimulation. Coordination and gait testing was limited by mental status. Arm and leg reflexes were symmetric. Nascimento's sign was absent. Plantar responses were flexor. PEACE JUSTIN NP Apr 22, 2018 12:19
[2018-04-22] MEDS: INSULIN GLARGINE [LANTus] (100 UNITS/ML) SYG SC SCH ×2 (13:24→20:58)
[2018-04-22] MEDS ORDERED: VANCOMYCIN 750 MG (PMX) 250 ML IVPB SCH (14:00)
--- NOTE | 2018-04-22 14:29 | CONS ---
Date/Time of Note Date/Time of Note DATE: 04/22/18 TIME: 14:27 Assessment/Plan Assessment/Plan Hospital Course No acute events patient is noncommunicative in no distress afebrile with a T-max of 99.8. WBC 38.9 H&H 11.5 and 3 34.1 platelets 225 BUN 92 creatinine 2.41 Microbiology: Urine culture negative stool for C. difficile negative. Blood culture on admission grew alpha hemolytic strep and coag negative staph species, urine culture grew E. coli Chest x-ray this morning revealed nasogastric tube coiled within the esophagus Indwelling: NG tube Dia Antimicrobials: Vancomycin, meropenem, Flagyl Physical examination: Well-developed chronically ill-appearing elderly man who is in no distress. Head atraumatic normocephalic sclera nonicteric vehicle mucosa dry neck is supple chest rise symmetrical breath sounds diminished bases. Heart: S1-S2. Abdomen soft bowel sounds present extremities without cyanosis, trace edema Assessment: 1. Severe sepsis 2. Probable acute aspiration secondary to NG tube dislodgment 3. Status post polymicrobial bacteremia. 2D echo revealed no evidence for vegetations 2. Status post E. coli UTI 3. Acute encephalopathy 4. BPH 5. Hypertension Plan: Clinically unchanged, with worsening leukocytosis, despite change of antibiotics. We will discontinue Flagyl, order CT of the abdomen and pelvis, check pro-calcitonin level Result Diagram: 04/22/18 0500 04/22/18 0500 Results 24hrs Laboratory Tests Test 04/21/18 17:39 04/21/18 20:36 04/22/18 01:06 04/22/18 05:00 Bedside Glucose 231 H 280 H 154 White Blood Count 38.9 #H Red Blood Count 3.77 L Hemoglobin 11.5 L Hematocrit 34.1 L Mean Corpuscular Volume 90.5 Mean Corpuscular 30.5 Hemoglobin Mean Corpuscular 33.7 Hemoglobin Concent Red Cell Distribution 14.9 H Width Platelet Count 225 # Mean Platelet Volume 13.3 H Immature Granulocytes % 8.400 H Neutrophils % Segmented Neutrophils 77 % (Manual) Band Neutrophils % 8 H (Manual) Lymphocytes % Lymphocytes % (Manual) 5 L Monocytes % Monocytes % (Manual) 3 Eosinophils % Basophils % Myelocytes % (Manual) 6 H Promyelocytes % (Manual) 1 H Nucleated Red Blood 0.1 H Cells % Immature Granulocytes # 3.250 H Neutrophils # Neutrophils # (Manual) 31.2 H Band Neutrophils # 3.1 H Lymphocytes (Manual) 1.9 Lymphocytes # Monocytes # Monocytes # (Manual) 1.1 H Eosinophils # Basophils # Myelocytes # 2.3 H Promyelocytes # 0.3 H Nucleated Red Blood Cells # Platelet Estimate NORMAL Giant Platelets 1 H Polychromasia 2+ Poikilocytosis 2+ Anisocytosis 1+ Microcytosis 1+ Sodium Level 135 Potassium Level 4.3 Chloride Level 105 Carbon Dioxide Level 19 L Anion Gap 11 Blood Urea Nitrogen 92 #H Creatinine 2.41 H Est Glomerular Filtrat Rate mL/min Glucose Level 149 # Calcium Level 7.5 L Phosphorus Level 3.9 Magnesium Level 1.8 Test 04/22/18 05:52 04/22/18 07:57 04/22/18 12:38 Bedside Glucose 192 159 174 Consultation Date/Type/Reason Admit Date/Time Apr 13, 2018 at 18:12 Initial Consult Date Type of Consult ID Requesting Provider: ROBERT JACKSON Exam/Review of Systems Vital Signs Vitals Vital Signs Date Temp Pulse Resp B/P (MAP) Pulse Ox O2 O2 Flow FiO2 Time Delivery Rate 04/22/18 89 20 98 Nasal 2.0 13:16 Cannula 04/22/18 28 13:16 04/22/18 99.1 116/56 12:34 (76) Intake and Output 04/21/18 04/21/18 04/22/18 1515:00 23:00 07:00 IntakeIntake Total 1380 ml 475 ml OutputOutput Total 350 ml 300 ml BalanceBalance 1030 ml 175 ml Medications Medications Current Medications IV Flush (NS 3 ml) 3 ml PER PROTOCOL IV ; Start 04/13/18 at 18:30 Ondansetron HCl (Zofran Inj) 4 mg Q6H PRN IV NAUSEA AND/OR VOMITING; Start 04/13/18 at 18:30 Acetaminophen (Tylenol Supp) 650 mg Q6H PRN [place] PAIN LEVEL 1-3 OR FEVER; Start 04/13/18 at 18:30 Pantoprazole (Protonix Iv) 40 mg DAILY@06 IV Last administered on 04/22/18at 06:14; Admin Dose 40 MG; Start 04/14/18 at 06:00 Heparin Sodium (Porcine) (Heparin (5000 Units/1ml)) 5,000 unit BID SC ; Start 04/13/18 at 21:00; Status Hold Hydralazine HCl (Apresoline) 10 mg Q4H PRN IV SBP >170; Start 04/13/18 at 19:00 Miscellaneous Information 1 ea NOTE XX ; Start 04/13/18 at 19:30 Glucose (Glutose) 15 gm Q15M PRN PO DECREASED GLUCOSE; Start 04/13/18 at 19:30 Glucose (Glutose) 22.5 gm Q15M PRN PO DECREASED GLUCOSE; Start 04/13/18 at 19: 30 Dextrose (D50w Syringe) 25 ml Q15M PRN IV DECREASED GLUCOSE; Start 04/13/18 at 19:30 Dextrose (D50w Syringe) 50 ml Q15M PRN IV DECREASED GLUCOSE; Start 04/13/18 at 19:30 Glucagon (Glucagen) 1 mg Q15M PRN IM DECREASED GLUCOSE; Start 04/13/18 at 19:30 Glucose (Glutose) 15 gm Q15M PRN BUCCAL DECREASED GLUCOSE; Start 04/13/18 at 19:30 Insulin Glargine (Lantus) 16 units DAILY@0800 SC Last administered on 04/22/18 13:24; Admin Dose 16 UNITS; Start 04/16/18 at 08:00 Collagenase (Santyl) 1 applic DAILY TOP Last administered on 04/22/18 09:23; Admin Dose 1 APPLIC; Start 04/15/18 at 11:00 Albuterol/ Ipratropium (Duoneb) 3 ml Q6HWA RESP THERAPY HHN Last administered on 04/22/18 13:06; Admin Dose 3 ML; Start 04/16/18 at 14:00 Albuterol/ Ipratropium (Duoneb) 3 ml Q2H RESP THERAPY PRN HHN shortness of breath Last administered on 04/21/18 05:48; Admin Dose 3 ML; Start 04/16/18 at 10:00 Haloperidol (Haldol) 5 mg Q12H PRN IM agitation Last administered on 04/21/18 04:25; Admin Dose 5 MG; Start 04/17/18 at 09:30 Insulin Aspart (Novolog Insulin Pen) (Adult SC Insulin - Moder... Q4 SC Last administered on 04/22/18 13:25; Admin Dose 2 UNIT; Start 04/18/18 at 21:00 Insulin Glargine (Lantus) 15 units DAILY@2000 SC Last administered on 04/21/18at 21:09; Admin Dose 15 UNITS; Start 04/20/18 at 20:00 Meropenem/Sodium Chloride 50 ml @ 100 mls/hr Q12 IVPB Last administered on 04/22/18at 08:56; Admin Dose 100 MLS/HR; Start 04/21/18 at 13:00 Vancomycin HCl (Vanco Iv Per Pharmacy) VANCOMYCIN PER PHARMACY PER PROTOCOL XX ; Start 04/21/18 at 12:30 Vancomycin/Sodium Chloride 250 ml @ 125 mls/hr Q24H IVPB ; Start 04/22/18 at 14:00 Amiodarone HCl (Cordarone) 100 mg QHS PO Last administered on 04/21/18at 21:13; Admin Dose 100 MG; Start 04/21/18 at 21:00 Amiodarone HCl (Cordarone) 200 mg QAM PO ; Start 04/22/18 at 09:00 Memantine (Namenda) 5 mg BID PO Last administered on 04/21/18at 21:14; Admin Dose 5 MG; Start 04/21/18 at 21:00 Aspirin (Aspirin) 81 mg DAILY PO ; Start 04/22/18 at 09:00 Metronidazole (Flagyl) 500 mg Q8 NGT Last administered on 04/22/18at 06:15; Admin Dose 500 MG; Start 04/21/18 at 14:00 Sodium Chloride 1,000 ml @ 50 mls/hr Q20H IV Last administered on 04/22/18at 09:34; Admin Dose 50 MLS/HR; Start 04/22/18 at 09:30; Stop 04/23/18 at 05:29 JAMIE WORRELL NP Apr 22, 2018 14:29
[2018-04-22] MEDS: ASPIRIN 81 MG TAB PO SCH (14:37)
[2018-04-22] MEDS: MEMANTINE 5 MG TAB PO SCH ×2 (14:37→20:50)
[2018-04-22] MEDS: AMIODARONE 200 MG TAB PO SCH ×2 (14:38→20:51)
[2018-04-23] VITALS (17 sets, daily range): BP systolic 95–130; BP diastolic 52–73; PULSE 74–128; RESP 18–22
[2018-04-23] MEDS: INSULIN ASPART [NOVOLOG] 3 ML PEN SC SCH ×4 (01:32→17:12)
[2018-04-23] MEDS: HYDROmorphONE 1 MG/ML SYG IV PRN ×2 (02:21→20:19)
[2018-04-23] MEDS: PANTOPRAZOLE 40 MG INJ IV SCH (05:55)
[2018-04-23] MEDS: ALBUTEROL/IPRATROPIUM (NEB) 3 ML AMP HHN SCH ×3 (07:45→21:45)
[2018-04-23] MEDS: MEMANTINE 5 MG TAB PO SCH ×2 (07:59→21:31)
[2018-04-23] MEDS: COLLAGENASE 5 GM (UD JAR) TOP SCH (08:00)
[2018-04-23] MEDS: BALSAM PERU/CASTOR OIL 60 GM TUBE TOP SCH (08:00)
[2018-04-23] MEDS: ASPIRIN 81 MG TAB PO SCH (08:00)
[2018-04-23] MEDS: AMIODARONE 200 MG TAB PO SCH ×2 (08:00→21:31)
[2018-04-23] MEDS: INSULIN GLARGINE [LANTus] (100 UNITS/ML) SYG SC SCH ×2 (08:05→21:38)
--- NOTE | 2018-04-23 08:22 | CONS ---
Date/Time of Note Date/Time of Note DATE: 04/23/18 TIME: 08:18 Assessment/Plan Assessment/Plan Assessment/Plan Advanced dementia Urinary tract infection Receiving IV antibiotics and aggressive intervention Fluid electrolyte abnormality dehydration Fluid resuscitation is being administered Other comorbid medical problems including hypertension, type 2 diabetes, psychosis, advanced dementia, are stable and unchanged according medical records. Patient has a conservator I think it most appropriate to present patient b ioethics and consideration of changing his CODE STATUS to DO NOT RESUSCITATE. At this time he is not end-stage so there is no indications that we should try to move patients to comfort levels only unless he does a dramatic catastrophic change. However patient does have bilateral discoid atelectasis On his chest x-ray and a white blood cell count greater than 20,000. She is asked to move ahead as soon as possible to change patient's CODE STATUS. We will speak with Dr. Santoyo. Result Diagram: 04/23/18 0447 04/23/18 0447 Results 24hrs Laboratory Tests Test 04/22/18 12:38 04/22/18 17:49 04/22/18 20:49 04/23/18 01:28 Bedside Glucose 174 165 150 157 Test 04/23/18 04:47 04/23/18 05:54 04/23/18 07:59 White Blood Count 21.6 #H Red Blood Count 3.11 L Hemoglobin 9.4 L Hematocrit 28.5 L Mean Corpuscular Volume 91.6 Mean Corpuscular 30.2 Hemoglobin Mean Corpuscular 33.0 Hemoglobin Concent Red Cell Distribution 14.8 H Width Platelet Count 295 # Mean Platelet Volume 12.1 H Immature Granulocytes % 6.600 H Neutrophils % Lymphocytes % Monocytes % Eosinophils % Basophils % Nucleated Red Blood 0.0 Cells % Immature Granulocytes # 1.430 H Neutrophils # Lymphocytes # Monocytes # Eosinophils # Basophils # Nucleated Red Blood Cells # Sodium Level 142 Potassium Level 3.1 L Chloride Level 111 H Carbon Dioxide Level 21 Anion Gap 10 Blood Urea Nitrogen 87 H Creatinine 2.02 H Glucose Level 114 Calcium Level 7.4 L Phosphorus Level 4.4 Magnesium Level 1.9 Albumin 2.3 L Bedside Glucose 125 138 Consultation Date/Type/Reason Admit Date/Time Apr 13, 2018 at 18:12 Hx of Present Illness All information is taken from patient's medical records he is a non-historian and he is conserved. Patient was sent from a long-term facility with d ehydration and urinary tract infection. He has been treated aggressively since admission with fluid resuscitation correction of electrolytes IV antibiotics. Patient baseline mental status is not entirely known except he has a history of Alzheimer's disease and on cursory examination by myself he is noncommunicative and end-stage dementia. Other comorbid medical problems include history of atrial fibrillation BPH type 2 diabetes psychosis and hypertension. I am asked to see patient and assist with CODE STATUS status change. Past Medical History Medical History: diabetes, hypertension, other (COPD, atrial fibrillation, BPH, Alzheimers, dementia) Medications Current Medications IV Flush (NS 3 ml) 3 ml PER PROTOCOL IV ; Start 04/13/18 at 18:30 Ondansetron HCl (Zofran Inj) 4 mg Q6H PRN IV NAUSEA AND/OR VOMITING; Start 04/13/18 at 18:30 Acetaminophen (Tylenol Supp) 650 mg Q6H PRN [place] PAIN LEVEL 1-3 OR FEVER; Start 04/13/18 at 18:30 Pantoprazole (Protonix Iv) 40 mg DAILY@06 IV Last administered on 04/23/18at 05:55; Admin Dose 40 MG; Start 04/14/18 at 06:00 Heparin Sodium (Porcine) (Heparin (5000 Units/1ml)) 5,000 unit BID SC ; Start 04/13/18 at 21:00; Status Hold Hydralazine HCl (Apresoline) 10 mg Q4H PRN IV SBP >170; Start 04/13/18 at 19:00 Miscellaneous Information 1 ea NOTE XX ; Start 04/13/18 at 19:30 Glucose (Glutose) 15 gm Q15M PRN PO DECREASED GLUCOSE; Start 04/13/18 at 19:30 Glucose (Glutose) 22.5 gm Q15M PRN PO DECREASED GLUCOSE; Start 04/13/18 at 19:30 Dextrose (D50w Syringe) 25 ml Q15M PRN IV DECREASED GLUCOSE; Start 04/13/18 at 19:30 Dextrose (D50w Syringe) 50 ml Q15M PRN IV DECREASED GLUCOSE; Start 04/13/18 at 19:30 Glucagon (Glucagen) 1 mg Q15M PRN IM DECREASED GLUCOSE; Start 04/13/18 at 19:30 Glucose (Glutose) 15 gm Q15M PRN BUCCAL DECREASED GLUCOSE; Start 04/13/18 at 19:30 Insulin Glargine (Lantus) 16 units DAILY@0800 SC Last administered on 04/23/18 08:05; Admin Dose 16 UNITS; Start 04/16/18 at 08:00 Collagenase (Santyl) 1 applic DAILY TOP Last administered on 04/23/18 08:00; Admin Dose 1 APPLIC; Start 04/15/18 at 11:00 Albuterol/ Ipratropium (Duoneb) 3 ml Q6HWA RESP THERAPY HHN Last administered on 04/23/18 07:45; Admin Dose 3 ML; Start 04/16/18 at 14:00 Albuterol/ Ipratropium (Duoneb) 3 ml Q2H RESP THERAPY PRN HHN shortness of breath Last administered on 04/21/18 05:48; Admin Dose 3 ML; Start 04/16/18 at 10:00 Haloperidol (Haldol) 5 mg Q12H PRN IM agitation Last administered on 04/21/18 04:25; Admin Dose 5 MG; Start 04/17/18 at 09:30 Insulin Glargine (Lantus) 15 units DAILY@2000 SC Last administered on 04/22/18 20:58; Admin Dose 15 UNITS; Start 04/20/18 at 20:00 Meropenem/Sodium Chloride 50 ml @ 100 mls/hr Q12 IVPB Last administered on 04/22/18 21:03; Admin Dose 100 MLS/HR; Start 04/21/18 at 13:00 Vancomycin HCl (Vanco Iv Per Pharmacy) VANCOMYCIN PER PHARMACY PER PROTOCOL XX ; Start 04/21/18 at 12:30 Amiodarone HCl (Cordarone) 100 mg QHS PO Last administered on 04/22/18 20:51; Admin Dose 100 MG; Start 04/21/18 at 21:00 Amiodarone HCl (Cordarone) 200 mg QAM PO Last administered on 04/23/18 08:00; Admin Dose 200 MG; Start 04/22/18 at 09:00 Memantine (Namenda) 5 mg BID PO Last administered on 04/23/18 07:59; Admin Dose 5 MG; Start 04/21/18 at 21:00 Aspirin (Aspirin) 81 mg DAILY PO Last administered on 1/8/19at 08:00; Admin D ose 81 MG; Start 04/22/18 at 09:00 Vancomycin/Sodium Chloride 250 ml @ 125 mls/hr Q48H IVPB ; Start 04/24/18 at 15:00 Insulin Aspart (Novolog Insulin Pen) (Adult SC Insulin - Moder... Q6 SC Last administered on 04/23/18at 01:32; Admin Dose 2 UNIT; Start 04/23/18 at 00:00 Hydromorphone HCl (Dilaudid) 1 mg Q6H PRN IV SEVERE PAIN LEVEL 7-10 Last administered on 04/23/18at 02:21; Admin Dose 1 MG; Start 04/23/18 at 02:30 Allergies: Coded Allergies: No Known Allergy (Unverified , 04/13/18) Past Surgical History Past Surgical Hx: other (unknown) Social History Alcohol Use: none Smoking Status: Unknown if ever smoked Drug Use: none Exam/Review of Systems Vital Signs Vitals Vital Signs Date Temp Pulse Resp B/P (MAP) Pulse Ox O2 O2 Flow FiO2 Time Delivery Rate 04/23/18 Nasal 2.0 07:44 Cannula 04/23/18 78 04:00 04/23/18 20 95/57 (70) 93 04:00 04/23/18 98.2 02:00 04/22/18 28 13:16 Intake and Output 04/22/18 04/22/18 04/23/18 1515:00 23:00 07:00 IntakeIntake Total 50 ml 519 ml 650 ml OutputOutput Total 250 ml 700 ml BalanceBalance 50 ml 269 ml -50 ml Exam Constitutional: non-verbal Psych: other (Cannot ascertain) Head: normocephalic, atraumatic; No lacerations, No hematomas, No other Eyes: nl conjunctiva ENMT: nl external ears & nose, nl lips & teeth, nl nasal mucosa & septum Neck: supple, non-tender Respiratory: congested cough, diminished breath sounds Cardiovascular: regular rate and rhythm, nl pulses; No bruits, No diastolic murmur, No edema, No gallop, No irregular rhythm, No jugular venous distention (JVD), No murmurs/extra sounds, No rub, No systolic murmur, No S3, No S4, No other Neurological: unresponsive, other (Noncommunicative , moans and groans occasionally, nonpurposeful movements, cannot assess cranial nerves, bilateral disconjugate gaze normal respirations) Medications Medications Current Medications IV Flush (NS 3 ml) 3 ml PER PROTOCOL IV ; Start 04/13/18 at 18:30 Ondansetron HCl (Zofran Inj) 4 mg Q6H PRN IV NAUSEA AND/OR VOMITING; Start 04/13/18 at 18:30 Acetaminophen (Tylenol Supp) 650 mg Q6H PRN [place] PAIN LEVEL 1-3 OR FEVER; Start 04/13/18 at 18:30 Pantoprazole (Protonix Iv) 40 mg DAILY@06 IV Last administered on 04/23/18at 05:55; Admin Dose 40 MG; Start 04/14/18 at 06:00 Heparin Sodium (Porcine) (Heparin (5000 Units/1ml)) 5,000 unit BID SC ; Start 04/13/18 at 21:00; Status Hold Hydralazine HCl (Apresoline) 10 mg Q4H PRN IV SBP >170; Start 04/13/18 at 19:00 Miscellaneous Information 1 ea NOTE XX ; Start 04/13/18 at 19:30 Glucose (Glutose) 15 gm Q15M PRN PO DECREASED GLUCOSE; Start 04/13/18 at 19:30 Glucose (Glutose) 22.5 gm Q15M PRN PO DECREASED GLUCOSE; Start 04/13/18 at 19:30 Dextrose (D50w Syringe) 25 ml Q15M PRN IV DECREASED GLUCOSE; Start 04/13/18 at 19:30 Dextrose (D50w Syringe) 50 ml Q15M PRN IV DECREASED GLUCOSE; Start 04/13/18 at 19:30 Glucagon (Glucagen) 1 mg Q15M PRN IM DECREASED GLUCOSE; Start 04/13/18 at 19:30 Glucose (Glutose) 15 gm Q15M PRN BUCCAL DECREASED GLUCOSE; Start 04/13/18 at 19:30 Insulin Glargine (Lantus) 16 units DAILY@0800 SC Last administered on 04/23/18at 08:05; Admin Dose 16 UNITS; Start 04/16/18 at 08:00 Collagenase (Santyl) 1 applic DAILY TOP Last administered on 04/23/18at 08:00; Admin Dose 1 APPLIC; Start 04/15/18 at 11:00 Albuterol/ Ipratropium (Duoneb) 3 ml Q6HWA RESP THERAPY HHN Last administered on 04/23/18 07:45; Admin Dose 3 ML; Start 04/16/18 at 14:00 Albuterol/ Ipratropium (Duoneb) 3 ml Q2H RESP THERAPY PRN HHN shortness of breath Last administered on 04/21/18 05:48; Admin Dose 3 ML; Start 04/16/18 at 10:00 Haloperidol (Haldol) 5 mg Q12H PRN IM agitation Last administered on 04/21/18 04:25; Admin Dose 5 MG; Start 04/17/18 at 09:30 Insulin Glargine (Lantus) 15 units DAILY@2000 SC Last administered on 04/22/18 20:58; Admin Dose 15 UNITS; Start 04/20/18 at 20:00 Meropenem/Sodium Chloride 50 ml @ 100 mls/hr Q12 IVPB Last administered on 04/22/18 21:03; Admin Dose 100 MLS/HR; Start 04/21/18 at 13:00 Vancomycin HCl (Vanco Iv Per Pharmacy) VANCOMYCIN PER PHARMACY PER PROTOCOL XX ; Start 04/21/18 at 12:30 Amiodarone HCl (Cordarone) 100 mg QHS PO Last administered on 04/22/18 20:51; Admin Dose 100 MG; Start 04/21/18 at 21:00 Amiodarone HCl (Cordarone) 200 mg QAM PO Last administered on 04/23/18 08:00; Admin Dose 200 MG; Start 04/22/18 at 09:00 Memantine (Namenda) 5 mg BID PO Last administered on 04/23/18 07:59; Admin Dose 5 MG; Start 04/21/18 at 21:00 Aspirin (Aspirin) 81 mg DAILY PO Last administered on 04/23/18 08:00; Admin Dose 81 MG; Start 04/22/18 at 09:00 Vancomycin/Sodium Chloride 250 ml @ 125 mls/hr Q48H IVPB ; Start 04/24/18 at 15:00 Insulin Aspart (Novolog Insulin Pen) (Adult SC Insulin - Moder... Q6 SC Last ad ministered on 04/23/18 01:32; Admin Dose 2 UNIT; Start 04/23/18 at 00:00 Hydromorphone HCl (Dilaudid) 1 mg Q6H PRN IV SEVERE PAIN LEVEL 7-10 Last administered on 04/23/18at 02:21; Admin Dose 1 MG; Start 04/23/18 at 02:30 LAMONT MORENO Apr 23, 2018 08:22
--- NOTE | 2018-04-23 08:33 | PN ---
Date/Time of Note Date/Time of Note DATE: 04/23/18 TIME: 08:33 Assessment/Plan VTE Prophylaxis Risk score (from Ns)>0 risk: 5 SCD applied (from Ns): Yes Pharmacological prophylaxis: heparin Lines/Catheters IV Catheter Type (from Nrsg): Mid Line Urinary Cath still in place: Yes Reason Cath still needed: skin wounds contaminated by urine Assessment/Plan Assessment/Plan 1. Acute toxic encephalopathy- resolving - Patient appears at baseline per halfway. unable to care for self or make needs known - Neurology consultation appreciated and CT results noted 2. Sepsis secondary to UTI and bacteremia- improving - Blood and urine cultures noted - WBC trending downward and Cdiff negative - ID on board for antibiotics management and recommending continue current treatment - ECHO noted - LA normalized 3. Prerenal azotemia - Renal function shows some improvement this am and fluids adjusted - Nephrology consultation appreciated - Patient baseline Cr 02/2018 was 1.0 - Renal US results noted 4. Hypernatremia, hypovolemic- resolved 5. h/o DM - last A1c 02/2018 was 6.4 - ISS and accuchecks 6. afib - continue on home dose of Amiodarone 7. HTN - stable off home meds - Lasix, hctz, and lisinopril on hold secondary to LOVE - PRN hydralazine if needed 8. 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 BPH - on terazosin 10. psychosis - on valproic acid BID 11. Disposition - Plans for Bioethic meeting on for change of code status - [place] evaluation placed as well Result Diagram: 04/23/18 0447 04/23/187 Results 24hrs Laboratory Tests Test 04/22/18 12:38 04/22/18 17:49 04/22/18 20:49 04/23/18 01:28 Bedside Glucose 174 165 150 157 Test 04/23/18 04:47 04/23/18 05:54 04/23/18 07:59 White Blood Count 21.6 #H Red Blood Count 3.11 L Hemoglobin 9.4 L Hematocrit 28.5 L Mean Corpuscular Volume 91.6 Mean Corpuscular 30.2 Hemoglobin Mean Corpuscular 33.0 Hemoglobin Concent Red Cell Distribution 14.8 H Width Platelet Count 295 # Mean Platelet Volume 12.1 H Immature Granulocytes % 6.600 H Neutrophils % Lymphocytes % Monocytes % Eosinophils % Basophils % Nucleated Red Blood 0.0 Cells % Immature Granulocytes # 1.430 H Neutrophils # Lymphocytes # Monocytes # Eosinophils # Basophils # Nucleated Red Blood Cells # Sodium Level 142 Potassium Level 3.1 L Chloride Level 111 H Carbon Dioxide Level 21 Anion Gap 10 Blood Urea Nitrogen 87 H Creatinine 2.02 H Glucose Level 114 Calcium Level 7.4 L Phosphorus Level 4.4 Magnesium Level 1.9 Albumin 2.3 L Bedside Glucose 125 138 Subjective 24 Hr Interval Summary Free Text/Dictation Patient only moaning to questions and when touched. No acute overnight events or new complaints. Palliative recommending DNR/DNI status and bioethics meeting scheduled for . Exam/Review of Systems Vital Signs Vitals Vital Signs Date Temp Pulse Resp B/P (MAP) Pulse Ox O2 O2 Flow FiO2 Time Delivery Rate 04/23/18 98.1 77 18 113/63 96 08:15 (80) 04/23/18 Nasal 4.0 07:45 Cannula 04/22/18 28 13:16 Intake and Output 04/22/18 04/22/18 04/23/18 1515:00 23:00 07:00 IntakeIntake Total 50 ml 519 ml 650 ml OutputOutput Total 250 ml 700 ml BalanceBalance 50 ml 269 ml -50 ml Exam General: Patient is laying in bed, moans when touched or spoken to. Mentation: Patient is not alert and oriented. no following commands.opens mouth when questioned Neck: Supple, nontender, midline Respiratory: Clear to auscultation bilaterally. no wheezing or rhonchi Cardiovascular: regular rate and rhythm, no obvious murmurs Gastrointestinal: soft, non-tender to palpation, nondistended, bowel sounds heard. Neurological: Moves all extremities spontaneously, but only to noxious stimuli. moans but does not follow commands Skin: No new skin lesions, pressure ulcers Medications Medications Current Medications IV Flush (NS 3 ml) 3 ml PER PROTOCOL IV ; Start 04/13/18 at 18:30 Ondansetron HCl (Zofran Inj) 4 mg Q6H PRN IV NAUSEA AND/OR VOMITING; Start 04/13/18 at 18:30 Acetaminophen (Tylenol Supp) 650 mg Q6H PRN [place] PAIN LEVEL 1-3 OR FEVER; Start 04/13/18 at 18:30 Pantoprazole (Protonix Iv) 40 mg DAILY@06 IV Last administered on 04/23/18 05:55; Admin Dose 40 MG; Start 04/14/18 at 06:00 Heparin Sodium (Porcine) (Heparin (5000 Units/1ml)) 5,000 unit BID SC ; Start 04/13/18 at 21:00; Status Hold Hydralazine HCl (Apresoline) 10 mg Q4H PRN IV SBP >170; Start 04/13/18 at 19:00 Miscellaneous Information 1 ea NOTE XX ; Start 04/13/18 at 19:30 Glucose (Glutose) 15 gm Q15M PRN PO DECREASED GLUCOSE; Start 04/13/18 at 19:30 Glucose (Glutose) 22.5 gm Q15M PRN PO DECREASED GLUCOSE; Start 04/13/18 at 19:30 Dextrose (D50w Syringe) 25 ml Q15M PRN IV DECREASED GLUCOSE; Start 04/13/18 at 19:30 Dextrose (D50w Syringe) 50 ml Q15M PRN IV DECREASED GLUCOSE; Start 04/13/18 at 19:30 Glucagon (Glucagen) 1 mg Q15M PRN IM DECREASED GLUCOSE; Start 04/13/18 at 19:30 Glucose (Glutose) 15 gm Q15M PRN BUCCAL DECREASED GLUCOSE; Start 04/13/18 at 19:30 Insulin Glargine (Lantus) 16 units DAILY@0800 SC Last administered on 04/23/18 08:05; Admin Dose 16 UNITS; Start 04/16/18 at 08:00 Collagenase (Santyl) 1 applic DAILY TOP Last administered on 04/23/18 08:00; Admin Dose 1 APPLIC; Start 04/15/18 at 11:00 Albuterol/ Ipratropium (Duoneb) 3 ml Q6HWA RESP THERAPY HHN Last administered on 04/23/18 07:45; Admin Dose 3 ML; Start 04/16/18 at 14:00 Albuterol/ Ipratropium (Duoneb) 3 ml Q2H RESP THERAPY PRN HHN shortness of breath Last administered on 04/21/18 05:48; Admin Dose 3 ML; Start 04/16/18 at 10:00 Haloperidol (Haldol) 5 mg Q12H PRN IM agitation Last administered on 1/6/19at 04:25; Admin Dose 5 MG; Start 04/17/18 at 09:30 Insulin Glargine (Lantus) 15 units DAILY@2000 SC Last administered on 04/22/18 20:58; Admin Dose 15 UNITS; Start 04/20/18 at 20:00 Meropenem/Sodium Chloride 50 ml @ 100 mls/hr Q12 IVPB Last administered on 04/22/18 21:03; Admin Dose 100 MLS/HR; Start 04/21/18 at 13:00 Vancomycin HCl (Vanco Iv Per Pharmacy) VANCOMYCIN PER PHARMACY PER PROTOCOL XX ; Start 04/21/18 at 12:30 Amiodarone HCl (Cordarone) 100 mg QHS PO Last administered on 04/22/18 20:51; Admin Dose 100 MG; Start 04/21/18 at 21:00 Amiodarone HCl (Cordarone) 200 mg QAM PO Last administered on 04/23/18 08:00; Admin Dose 200 MG; Start 04/22/18 at 09:00 Memantine (Namenda) 5 mg BID PO Last administered on 04/23/18 07:59; Admin Dose 5 MG; Start 04/21/18 at 21:00 Aspirin (Aspirin) 81 mg DAILY PO Last administered on 04/23/18 08:00; Admin Dose 81 MG; Start 04/22/18 at 09:00 Vancomycin/Sodium Chloride 250 ml @ 125 mls/hr Q48H IVPB ; Start 04/24/18 at 15:00 Insulin Aspart (Novolog Insulin Pen) (Adult SC Insulin - Moder... Q6 SC Last administered on 04/23/18 01:32; Admin Dose 2 UNIT; Start 04/23/18 at 00:00 Hydromorphone HCl (Dilaudid) 1 mg Q6H PRN IV SEVERE PAIN LEVEL 7-10 Last administered on 04/23/18 02:21; Admin Dose 1 MG; Start 04/23/18 at 02:30 JOHN CORRAL MD Apr 23, 2018 08:33
[2018-04-23] MEDS ORDERED: POTASSIUM CHLORIDE 20 MEQ POWDER FOR ORAL SOLN NGT ONE (09:00)
[2018-04-23] MEDS: MEROPENEM 500MG/50 ML (PMX) 50 ML IVPB SCH ×2 (09:50→21:31)
[2018-04-23] MEDS: POTASSIUM CHLORIDE 100 ML IVPB SCH ×2 (09:53→10:44)
--- NOTE | 2018-04-23 10:32 | CONS ---
Date/Time of Note Date/Time of Note DATE: 04/23/18 TIME: 10:31 Assessment/Plan Assessment/Plan Assessment/Plan 87 yo Male with 1) Pre Renal Azotemia 2) Dehydration 3) Hypernatremia 4) AMS 5) Anemia, Chronic 6) Sepsis 7) Underlying CKD unspecified at this time. 8) Hypokalemia Cdiff negative Pre Renal Azotemia Start 1/2 NS wit KCL at 75ml/hr Non oliguric Na Now Normal Free H20 flushes to q4hr. Supplement K through NGT, ordered. Renal US reviewed, No hydronephrosis. Result Diagram: 04/23/1844604/23/18446 Results 24hrs Laboratory Tests Test 04/22/18 12:38 04/22/18 17:49 04/22/18 20:49 04/23/18 01:28 Bedside Glucose 174 165 150 157 Test 04/23/18 04:47 04/23/18 05:54 04/23/18 07:59 White Blood Count 21.6 #H Red Blood Count 3.11 L Hemoglobin 9.4 L Hematocrit 28.5 L Mean Corpuscular Volume 91.6 Mean Corpuscular 30.2 Hemoglobin Mean Corpuscular 33.0 Hemoglobin Concent Red Cell Distribution 14.8 H Width Platelet Count 295 # Mean Platelet Volume 12.1 H Immature Granulocytes % 6.600 H Neutrophils % Segmented Neutrophils 75 % (Manual) Band Neutrophils % 6 H (Manual) Lymphocytes % Lymphocytes % (Manual) 8 L Monocytes % Monocytes % (Manual) 7 Eosinophils % Basophils % Basophils % (Manual) 1 Metamyelocytes % 1 H (manual) Myelocytes % (Manual) 2 H Nucleated Red Blood 0.0 Cells % Immature Granulocytes # 1.430 H Neutrophils # Neutrophils # (Manual) 16.5 H Band Neutrophils # 1.2 H Lymphocytes (Manual) 1.7 Lymphocytes # Monocytes # Monocytes # (Manual) 1.5 H Eosinophils # Basophils # Basophils # (Manual) 0.2 H Metamyelocytes # 0.2 H Myelocytes # 0.4 H Nucleated Red Blood Cells # Platelet Estimate NORMAL Giant Platelets 1 H Polychromasia 3+ Poikilocytosis 2+ Anisocytosis 2+ Microcytosis 1+ Macrocytosis 1+ Sodium Level 142 Potassium Level 3.1 L Chloride Level 111 H Carbon Dioxide Level 21 Anion Gap 10 Blood Urea Nitrogen 87 H Creatinine 2.02 H Glucose Level 114 Calcium Level 7.4 L Phosphorus Level 4.4 Magnesium Level 1.9 Albumin 2.3 L Bedside Glucose 125 138 Consultation Date/Type/Reason Admit Date/Time Apr 13, 2018 at 18:12 Initial Consult Date Type of Consult Renal Requesting Provider: ROBERT JACKSON 24 HR Interval Summary Free Text/Dictation Cdiff negative Constitutional: requiring O2 Exam/Review of Systems Vital Signs Vitals Vital Signs Date Temp Pulse Resp B/P (MAP) Pulse Ox O2 O2 Flow FiO2 Time Delivery Rate 04/23/18 98.1 77 19 96/52 (67) 100 10:04 04/23/18 Nasal 4.0 07:45 Cannula 04/22/18 28 13:16 Intake and Output 04/22/18 04/22/18 04/23/18 1515:00 23:00 07:00 IntakeIntake Total 50 ml 519 ml 650 ml OutputOutput Total 250 ml 700 ml BalanceBalance 50 ml 269 ml -50 ml Exam Constitutional: frail; No distress Eyes: EOMI ENMT: mucosa pink and moist Neck: No jvd Respiratory: No crackles/rales Cardiovascular: No edema Gastrointestinal: soft Neurological: lethargic Skin: No diaphoresis Medications Medications Current Medications IV Flush (NS 3 ml) 3 ml PER PROTOCOL IV ; Start 04/13/18 at 18:30 Ondansetron HCl (Zofran Inj) 4 mg Q6H PRN IV NAUSEA AND/OR VOMITING; Start 04/13/18 at 18:30 Acetaminophen (Tylenol Supp) 650 mg Q6H PRN [place] PAIN LEVEL 1-3 OR FEVER; Start 04/13/18 at 18:30 Pantoprazole (Protonix Iv) 40 mg DAILY@06 IV Last administered on 04/23/18at 05:55; Admin Dose 40 MG; Start 04/14/18 at 06:00 Heparin Sodium (Porcine) (Heparin (5000 Units/1ml)) 5,000 unit BID SC ; Start 04/13/18 at 21:00; Status Hold Hydralazine HCl (Apresoline) 10 mg Q4H PRN IV SBP >170; Start 04/13/18 at 19:0 0 Miscellaneous Information 1 ea NOTE XX ; Start 04/13/18 at 19:30 Glucose (Glutose) 15 gm Q15M PRN PO DECREASED GLUCOSE; Start 04/13/18 at 19:30 Glucose (Glutose) 22.5 gm Q15M PRN PO DECREASED GLUCOSE; Start 04/13/18 at 19:30 Dextrose (D50w Syringe) 25 ml Q15M PRN IV DECREASED GLUCOSE; Start 04/13/18 at 19:30 Dextrose (D50w Syringe) 50 ml Q15M PRN IV DECREASED GLUCOSE; Start 04/13/18 at 19:30 Glucagon (Glucagen) 1 mg Q15M PRN IM DECREASED GLUCOSE; Start 04/13/18 at 19:30 Glucose (Glutose) 15 gm Q15M PRN BUCCAL DECREASED GLUCOSE; Start 04/13/18 at 19:30 Insulin Glargine (Lantus) 16 units DAILY@0800 SC Last administered on 04/23/18 08:05; Admin Dose 16 UNITS; Start 04/16/18 at 08:00 Collagenase (Santyl) 1 applic DAILY TOP Last administered on 04/23/18 08:00; Admin Dose 1 APPLIC; Start 04/15/18 at 11:00 Albuterol/ Ipratropium (Duoneb) 3 ml Q6HWA RESP THERAPY HHN Last administered on 04/23/18 07:45; Admin Dose 3 ML; Start 04/16/18 at 14:00 Albuterol/ Ipratropium (Duoneb) 3 ml Q2H RESP THERAPY PRN HHN shortness of breath Last administered on 04/21/18 05:48; Admin Dose 3 ML; Start 04/16/18 at 10:00 Haloperidol (Haldol) 5 mg Q12H PRN IM agitation Last administered on 04/21/18 04:25; Admin Dose 5 MG; Start 04/17/18 at 09:30 Insulin Glargine (Lantus) 15 units DAILY@2000 SC Last administered on 04/22/18 20:58; Admin Dose 15 UNITS; Start 04/20/18 at 20:00 Meropenem/Sodium Chloride 50 ml @ 100 mls/hr Q12 IVPB Last administered on 04/23/18 09:50; Admin Dose 100 MLS/HR; Start 04/21/18 at 13:00 Vancomycin HCl (Vanco Iv Per Pharmacy) VANCOMYCIN PER PHARMACY PER PROTOCOL XX ; Start 04/21/18 at 12:30 Amiodarone HCl (Cordarone) 100 mg QHS PO Last administered on 04/22/18 20:51; Admin Dose 100 MG; Start 04/21/18 at 21:00 Amiodarone HCl (Cordarone) 200 mg QAM PO Last administered on 04/23/18 08:00; Admin Dose 200 MG; Start 04/22/18 at 09:00 Memantine (Namenda) 5 mg BID PO Last administered on 04/23/18 07:59; Admin Dose 5 MG; Start 04/21/18 at 21:00 Aspirin (Aspirin) 81 mg DAILY PO Last administered on 04/23/18 08:00; Admin Dose 81 MG; Start 04/22/18 at 09:00 Vancomycin/Sodium Chloride 250 ml @ 125 mls/hr Q48H IVPB ; Start 04/24/18 at 15:00 Insulin Aspart (Novolog Insulin Pen) (Adult SC Insulin - Moder... Q6 SC Last administered on 04/23/18 01:32; Admin Dose 2 UNIT; Start 04/23/18 at 00:00 Hydromorphone HCl (Dilaudid) 1 mg Q6H PRN IV SEVERE PAIN LEVEL 7-10 Last administered on 04/23/18 02:21; Admin Dose 1 MG; Start 04/23/18 at 02:30 Potassium Chloride 100 ml @ 50 mls/hr Q2H IVPB Last administered on 04/23/18 09:53; Admin Dose 50 MLS/HR; Start 04/23/18 at 09:00; Stop 04/23/18 at 12:59 MEETA SPENCER MD Apr 23, 2018 10:32
[2018-04-23] MEDS: 1/2 NS + KCL 20 MEQ 1,000 ML IV SCH ×2 (10:44→23:50)
--- NOTE | 2018-04-23 15:08 | CONS ---
Date/Time of Note Date/Time of Note DATE: 04/23/18 TIME: 15:06 Assessment/Plan Assessment/Plan Hospital Course Patient looks comfortable no fevers overnight WBC today went down to 21.6 CT of the abdomen and pelvis yesterday revealed inflammatory changes in the distal colon suggestive for a colitis either infectious or inflammatory with the presence of colonic ileus mild small bowel ileus without obstruction scaring and emphysema is seen in the lower lungs with airways marked mucus plugging prostatic enlargement with findings of likely chronic outflow obstructive changes of the bladder Antimicrobials: Vancomycin meropenem Microbiology: Urine culture negative stool for C. difficile negative. Blood culture on admission grew alpha hemolytic strep and coag negative staph species, urine culture grew E. coli Chest x-ray this morning revealed nasogastric tube coiled within the esophagus Indwelling: NG tube Dia Physical examination: Well-developed chronically ill-appearing elderly man who is in no distress. Head atraumatic normocephalic sclera nonicteric vehicle mucosa dry neck is supple chest rise symmetrical breath sounds diminished bases. Heart: S1-S2. Abdomen soft bowel sounds present extremities without cyanosis, trace edema Assessment: 1. Severe sepsis 2. Probable acute aspiration secondary to NG tube dislodgment==> now in position 3. Colitis with stool came back negative for C. difficile 4. Ileus 5. Status post polymicrobial bacteremia. 2D echo revealed no evidence for vegetations 6. Status post E. coli UTI 7. Acute encephalopathy 8. BPH 9. Hypertension Plan: Clinically unchanged, responding to antibiotics continue present care aspiration precautions Result Diagram: 04/23/18 0447 04/23/18 0447 Results 24hrs Laboratory Tests Test 04/22/18 17:49 04/22/18 20:49 04/23/18 01:28 04/23/18 04:47 Bedside Glucose 165 150 157 White Blood Count 21.6 #H Red Blood Count 3.11 L Hemoglobin 9.4 L Hematocrit 28.5 L Mean Corpuscular Volume 91.6 Mean Corpuscular 30.2 Hemoglobin Mean Corpuscular 33.0 Hemoglobin Concent Red Cell Distribution 14.8 H Width Platelet Count 295 # Mean Platelet Volume 12.1 H Immature Granulocytes % 6.600 H Neutrophils % Segmented Neutrophils 75 % (Manual) Band Neutrophils % 6 H (Manual) Lymphocytes % Lymphocytes % (Manual) 8 L Monocytes % Monocytes % (Manual) 7 Eosinophils % Basophils % Basophils % (Manual) 1 Metamyelocytes % 1 H (manual) Myelocytes % (Manual) 2 H Nucleated Red Blood 0.0 Cells % Immature Granulocytes # 1.430 H Neutrophils # Neutrophils # (Manual) 16.5 H Band Neutrophils # 1.2 H Lymphocytes (Manual) 1.7 Lymphocytes # Monocytes # Monocytes # (Manual) 1.5 H Eosinophils # Basophils # Basophils # (Manual) 0.2 H Metamyelocytes # 0.2 H Myelocytes # 0.4 H Nucleated Red Blood Cells # Platelet Estimate NORMAL Giant Platelets 1 H Polychromasia 3+ Poikilocytosis 2+ Anisocytosis 2+ Microcytosis 1+ Macrocytosis 1+ Sodium Level 142 Potassium Level 3.1 L Chloride Level 111 H Carbon Dioxide Level 21 Anion Gap 10 Blood Urea Nitrogen 87 H Creatinine 2.02 H Glucose Level 114 Calcium Level 7.4 L Phosphorus Level 4.4 Magnesium Level 1.9 Albumin 2.3 L Test 04/23/18 05:54 04/23/18 07:59 04/23/18 11:58 Bedside Glucose 125 138 155 Consultation Date/Type/Reason Admit Date/Time Apr 13, 2018 at 18:12 Initial Consult Date Type of Consult ID Requesting Provider: ROBERT JACKSON Exam/Review of Systems Vital Signs Vitals Vital Signs Date Temp Pulse Resp B/P (MAP) Pulse Ox O2 O2 Flow FiO2 Time Delivery Rate 04/23/18 100 3.0 14:16 04/23/18 80 20 Nasal 14:16 Cannula 04/23/18 98.1 104/54 14:02 (71) 04/22/18 28 13:16 Intake and Output 04/22/18 04/22/18 04/23/18 1515:00 23:00 07:00 IntakeIntake Total 50 ml 519 ml 650 ml OutputOutput Total 250 ml 700 ml BalanceBalance 50 ml 269 ml -50 ml Medications Medications Current Medications IV Flush (NS 3 ml) 3 ml PER PROTOCOL IV ; Start 04/13/18 at 18:30 Ondansetron HCl (Zofran Inj) 4 mg Q6H PRN IV NAUSEA AND/OR VOMITING; Start 04/13/18 at 18:30 Acetaminophen (Tylenol Supp) 650 mg Q6H PRN [place] PAIN LEVEL 1-3 OR FEVER; Start 04/13/18 at 18:30 Pantoprazole (Protonix Iv) 40 mg DAILY@06 IV Last administered on 04/23/18 05:55; Admin Dose 40 MG; Start 04/14/18 at 06:00 Heparin Sodium (Porcine) (Heparin (5000 Units/1ml)) 5,000 unit BID SC ; Start 04/13/18 at 21:00; Status Hold Hydralazine HCl (Apresoline) 10 mg Q4H PRN IV SBP >170; Start 04/13/18 at 19:00 Miscellaneous Information 1 ea NOTE XX ; Start 04/13/18 at 19:30 Glucose (Glutose) 15 gm Q15M PRN PO DECREASED GLUCOSE; Start 04/13/18 at 19:30 Glucose (Glutose) 22.5 gm Q15M PRN PO DECREASED GLUCOSE; Start 04/13/18 at 19:30 Dextrose (D50w Syringe) 25 ml Q15M PRN IV DECREASED GLUCOSE; Start 04/13/18 at 19:30 Dextrose (D50w Syringe) 50 ml Q15M PRN IV DECREASED GLUCOSE; Start 04/13/18 at 19:30 Glucagon (Glucagen) 1 mg Q15M PRN IM DECREASED GLUCOSE; Start 04/13/18 at 19:30 Glucose (Glutose) 15 gm Q15M PRN BUCCAL DECREASED GLUCOSE; Start 04/13/18 at 19:30 Insulin Glargine (Lantus) 16 units DAILY@0800 SC Last administered on 04/23/18 08:05; Admin Dose 16 UNITS; Start 04/16/18 at 08:00 Collagenase (Santyl) 1 applic DAILY TOP Last administered on 04/23/18 08:00; Admin Dose 1 APPLIC; Start 04/15/18 at 11:00 Albuterol/ Ipratropium (Duoneb) 3 ml Q6HWA RESP THERAPY HHN Last administered on 04/23/18 14:16; Admin Dose 3 ML; Start 04/16/18 at 14:00 Albuterol/ Ipratropium (Duoneb) 3 ml Q2H RESP THERAPY PRN HHN shortness of breath Last administered on 04/21/18 05:48; Admin Dose 3 ML; Start 04/16/18 at 10:00 Haloperidol (Haldol) 5 mg Q12H PRN IM agitation Last administered on 04/21/18 04:25; Admin Dose 5 MG; Start 04/17/18 at 09:30 Insulin Glargine (Lantus) 15 units DAILY@2000 SC Last administered on 04/22/18 20:58; Admin Dose 15 UNITS; Start 04/20/18 at 20:00 Meropenem/Sodium Chloride 50 ml @ 100 mls/hr Q12 IVPB Last administered on 04/23/18 09:50; Admin Dose 100 MLS/HR; Start 04/21/18 at 13:00 Vancomycin HCl (Vanco Iv Per Pharmacy) VANCOMYCIN PER PHARMACY PER PROTOCOL XX ; Start 04/21/18 at 12:30 Amiodarone HCl (Cordarone) 100 mg QHS PO Last administered on 04/22/18 20:51; Admin Dose 100 MG; Start 04/21/18 at 21:00 Amiodarone HCl (Cordarone) 200 mg QAM PO Last administered on 04/23/18 08:00; Admin Dose 200 MG; Start 04/22/18 at 09:00 Memantine (Namenda) 5 mg BID PO Last administered on 04/23/18 07:59; Admin Dose 5 MG; Start 04/21/18 at 21:00 Aspirin (Aspirin) 81 mg DAILY PO Last administered on 04/23/18 08:00; Admin Dose 81 MG; Start 04/22/18 at 09:00 Vancomycin/Sodium Chloride 250 ml @ 125 mls/hr Q48H IVPB ; Start 04/24/18 at 15:00 Insulin Aspart (Novolog Insulin Pen) (Adult SC Insulin - Moder... Q6 SC Last administered on 04/23/18 12:01; Admin Dose 2 UNIT; Start 04/23/18 at 00:00 Hydromorphone HCl (Dilaudid) 1 mg Q6H PRN IV SEVERE PAIN LEVEL 7-10 Last administered on 04/23/18 02:21; Admin Dose 1 MG; Start 04/23/18 at 02:30 Potassium Chloride/Sodium Chloride 1,000 ml @ 75 mls/hr [id number] IV Last administered on 04/23/18 10:44; Admin Dose 75 MLS/HR; Start 04/23/18 at 10:30 JAMIE WORRELL NP Apr 23, 2018 15:07
--- NOTE | 2018-04-23 15:45 | CONS ---
Assessment/Plan Assessment/Plan Hospital Course A: 87 yo M with multiple comorbidities who p/w ams, for which neurology is consulted. UA +++, blood cx + LOVE + This is most clinically consistent with an acute and multifactorial toxic- metabolic on chronic encephalopathy. CTH is reassuringly without acute intracranial pathology. P: Ok to defer additional neuroimaging for now Other medical management and supportive care per primary [place] as able Limit sedating medications where possible PT/OT/ST as tolerated Will follow clinically Result Diagram: 04/23/18 0447 04/23/18446 Results 24hrs Laboratory Tests Test 04/22/18 17:49 04/22/18 20:49 04/23/18 01:28 04/23/18 04:47 Bedside Glucose 165 150 157 White Blood Count 21.6 #H Red Blood Count 3.11 L Hemoglobin 9.4 L Hematocrit 28.5 L Mean Corpuscular Volume 91.6 Mean Corpuscular 30.2 Hemoglobin Mean Corpuscular 33.0 Hemoglobin Concent Red Cell Distribution 14.8 H Width Platelet Count 295 # Mean Platelet Volume 12.1 H Immature Granulocytes % 6.600 H Neutrophils % Segmented Neutrophils 75 % (Manual) Band Neutrophils % 6 H (Manual) Lymphocytes % Lymphocytes % (Manual) 8 L Monocytes % Monocytes % (Manual) 7 Eosinophils % Basophils % Basophils % (Manual) 1 Metamyelocytes % 1 H (manual) Myelocytes % (Manual) 2 H Nucleated Red Blood 0.0 Cells % Immature Granulocytes # 1.430 H Neutrophils # Neutrophils # (Manual) 16.5 H Band Neutrophils # 1.2 H Lymphocytes (Manual) 1.7 Lymphocytes # Monocytes # Monocytes # (Manual) 1.5 H Eosinophils # Basophils # Basophils # (Manual) 0.2 H Metamyelocytes # 0.2 H Myelocytes # 0.4 H Nucleated Red Blood Cells # Platelet Estimate NORMAL Giant Platelets 1 H Polychromasia 3+ Poikilocytosis 2+ Anisocytosis 2+ Microcytosis 1+ Macrocytosis 1+ Sodium Level 142 Potassium Level 3.1 L Chloride Level 111 H Carbon Dioxide Level 21 Anion Gap 10 Blood Urea Nitrogen 87 H Creatinine 2.02 H Glucose Level 114 Calcium Level 7.4 L Phosphorus Level 4.4 Magnesium Level 1.9 Albumin 2.3 L Test 04/23/18 05:54 04/23/18 07:59 04/23/18 11:58 Bedside Glucose 125 138 155 Consultation Date/Type/Reason Admit Date/Time Apr 13, 2018 at 18:12 Type of Consult Neurology Reason for Consultation ams Requesting Provider: ROBERT JACKSON Date/Time of Note DATE: 04/23/18 TIME: 15:44 24 HR Interval Summary Free Text/Dictation Continues telemetry monitoring. No acute events reported. Family at bedside. Exam Vital Signs Vitals Vital Signs Date Temp Pulse Resp B/P (MAP) Pulse Ox O2 O2 Flow FiO2 Time Delivery Rate 04/23/18 100 3.0 14:16 04/23/18 80 20 Nasal 14:16 Cannula 04/23/18 98.1 104/54 14:02 (71) 04/22/18 28 13:16 Intake and Output 04/22/18 04/22/18 04/23/18 1515:00 23:00 07:00 IntakeIntake Total 50 ml 519 ml 650 ml OutputOutput Total 250 ml 700 ml BalanceBalance 50 ml 269 ml -50 ml Exam PE: Gen Appearance: No Apparent Distress; On 2 pt restraints HEENT: Normocephalic Cardiovascular: Regular rate Abdomen: Soft Extremities: Dry NE: The patient was awake and incomprehensibly verbal. Was able to open eyes after much prompting. Did not follow appendicular commands. Cranial nerve examination was limited by mental status. Pupils were equal and reactive to light. There was no afferent pupillary defect. Funduscopic examination was limited. Face was grossly symmetric, w/ present corneal and cough reflexes. Tone was spastic in UE. Muscle bulk was slightly diminished. I did not see fasciculations. The patient withdrew all extremities to noxious stimulation. Coordination and gait testing was limited by mental status. Arm and leg reflexes were symmetric. Nascimento's sign was absent. Plantar responses were flexor. PEACE JUSTIN NP Apr 23, 2018 15:45 VERONA CISNEROS Apr 23, 2018 17:55
[2018-04-24] VITALS (16 sets, daily range): BP systolic 109–150; BP diastolic 55–82; PULSE 72–82; RESP 18–20
[2018-04-24] MEDS: INSULIN ASPART [NOVOLOG] 3 ML PEN SC SCH ×5 (00:33→23:45)
[2018-04-24] MEDS: HYDROmorphONE 1 MG/ML SYG IV PRN ×3 (03:45→20:10)
[2018-04-24] MEDS: 1/2 NS + KCL 20 MEQ 1,000 ML IV SCH ×3 (03:45→19:18)
[2018-04-24] MEDS: PANTOPRAZOLE 40 MG INJ IV SCH (05:44)
[2018-04-24] MEDS: ALBUTEROL/IPRATROPIUM (NEB) 3 ML AMP HHN SCH ×3 (08:00→20:51)
[2018-04-24] MEDS: COLLAGENASE 5 GM (UD JAR) TOP SCH (08:13)
[2018-04-24] MEDS: BALSAM PERU/CASTOR OIL 60 GM TUBE TOP SCH (08:13)
[2018-04-24] MEDS: AMIODARONE 200 MG TAB PO SCH ×2 (08:14→20:07)
[2018-04-24] MEDS: MEMANTINE 5 MG TAB PO SCH ×2 (08:14→20:07)
[2018-04-24] MEDS: ASPIRIN 81 MG TAB PO SCH (08:14)
[2018-04-24] MEDS: INSULIN GLARGINE [LANTus] (100 UNITS/ML) SYG SC SCH ×2 (08:17→20:28)
--- NOTE | 2018-04-24 09:00 | CONS ---
Date/Time of Note Date/Time of Note DATE: 04/24/18 TIME: 08:59 Assessment/Plan Assessment/Plan Assessment/Plan 87 yo Male with 1) Pre Renal Azotemia 2) Dehydration 3) Hypernatremia 4) AMS 5) Anemia, Chronic 6) Sepsis 7) Underlying CKD unspecified at this time. 8) Hypokalemia Cdiff negative Pre Renal Azotemia improved Na stable, cont 1/2 NS wit KCL at 75ml/hr Non oliguric Cont Free H20 flushes to q4hr. Supplement K through NGT, ordered. Renal US reviewed, No hydronephrosis. Result Diagram: 04/24/18 0552 04/24/18 0552 Results 24hrs Laboratory Tests Test 04/23/18 11:58 04/23/18 17:09 04/23/18 21:30 04/24/18 00:15 Bedside Glucose 155 141 148 146 Test 04/24/18 05:43 04/24/18 05:52 04/24/18 08:03 Bedside Glucose 136 143 White Blood Count 12.1 #H Red Blood Count 3.01 L Hemoglobin 9.1 L Hematocrit 28.2 L Mean Corpuscular Volume 93.7 Mean Corpuscular 30.2 Hemoglobin Mean Corpuscular 32.3 Hemoglobin Concent Red Cell Distribution 14.9 H Width Platelet Count 322 Mean Platelet Volume 11.7 H Immature Granulocytes % 6.100 H Neutrophils % Lymphocytes % Monocytes % Eosinophils % Basophils % Nucleated Red Blood 0.0 Cells % Immature Granulocytes # 0.730 H Neutrophils # Lymphocytes # Monocytes # Eosinophils # Basophils # Nucleated Red Blood Cells # Sodium Level 145 H Potassium Level 3.9 Chloride Level 118 H Carbon Dioxide Level 23 Anion Gap 4 L Blood Urea Nitrogen 54 #H Creatinine 1.09 Glucose Level 127 Calcium Level 7.6 L Phosphorus Level 2.7 Magnesium Level 1.8 Albumin 2.3 L Consultation Date/Type/Reason Admit Date/Time Apr 13, 2018 at 18:12 Initial Consult Date Type of Consult Renal Requesting Provider: ROBERT JACKSON 24 HR Interval Summary Constitutional: requiring O2 Exam/Review of Systems Vital Signs Vitals Vital Signs Date Temp Pulse Resp B/P (MAP) Pulse Ox O2 O2 Flow FiO2 Time Delivery Rate 04/24/18 74 08:47 04/24/18 18 95 Nasal 2.0 08:36 Cannula 04/24/18 28 08:36 04/24/18 98.2 140/66 07:20 (90) Intake and Output 04/23/18 04/23/18 04/24/18 1515:00 23:00 07:00 IntakeIntake Total 500 ml 750 ml OutputOutput Total 600 ml 1500 ml BalanceBalance -100 ml -750 ml Exam Constitutional: frail; No distress ENMT: mucosa pink and moist Neck: No jvd Respiratory: No labored breathing Gastrointestinal: soft Extremities: No pitting pedal edema Neurological: confused Medications Medications Current Medications IV Flush (NS 3 ml) 3 ml PER PROTOCOL IV ; Start 04/13/18 at 18:30 Ondansetron HCl (Zofran Inj) 4 mg Q6H PRN IV NAUSEA AND/OR VOMITING; Start 04/13/18 at 18:30 Acetaminophen (Tylenol Supp) 650 mg Q6H PRN [place] PAIN LEVEL 1-3 OR FEVER; Start 04/13/18 at 18:30 Pantoprazole (Protonix Iv) 40 mg DAILY@06 IV Last administered on 04/24/18at 05:44; Admin Dose 40 MG; Start 04/14/18 at 06:00 Heparin Sodium (Porcine) (Heparin (5000 Units/1ml)) 5,000 unit BID SC ; Start 04/13/18 at 21:00; Status Hold Hydralazine HCl (Apresoline) 10 mg Q4H PRN IV SBP >170; Start 04/13/18 at 19:00 Miscellaneous Information 1 ea NOTE XX ; Start 04/13/18 at 19:30 Glucose (Glutose) 15 gm Q15M PRN PO DECREASED GLUCOSE; Start 04/13/18 at 19:30 Glucose (Glutose) 22.5 gm Q15M PRN PO DECREASED GLUCOSE; Start 04/13/18 at 19:30 Dextrose (D50w Syringe) 25 ml Q15M PRN IV DECREASED GLUCOSE; Start 04/13/18 at 19:30 Dextrose (D50w Syringe) 50 ml Q15M PRN IV DECREASED GLUCOSE; Start 04/13/18 at 19:30 Glucagon (Glucagen) 1 mg Q15M PRN IM DECREASED GLUCOSE; Start 04/13/18 at 19:30 Glucose (Glutose) 15 gm Q15M PRN BUCCAL DECREASED GLUCOSE; Start 04/13/18 at 19:30 Insulin Glargine (Lantus) 16 units DAILY@0800 SC Last administered on 04/24/18 08:17; Admin Dose 16 UNITS; Start 04/16/18 at 08:00 Collagenase (Santyl) 1 applic DAILY TOP Last administered on 04/24/18 08:13; Admin Dose 1 APPLIC; Start 04/15/18 at 11:00 Albuterol/ Ipratropium (Duoneb) 3 ml Q6HWA RESP THERAPY HHN Last administered on 04/23/18 14:16; Admin Dose 3 ML; Start 04/16/18 at 14:00 Albuterol/ Ipratropium (Duoneb) 3 ml Q2H RESP THERAPY PRN HHN shortness of breath Last administered on 04/21/18 05:48; Admin Dose 3 ML; Start 04/16/18 at 10:00 Haloperidol (Haldol) 5 mg Q12H PRN IM agitation Last administered on 04/21/18 04:25; Admin Dose 5 MG; Start 04/17/18 at 09:30 Insulin Glargine (Lantus) 15 units DAILY@2000 SC Last administered on 04/23/18 21:38; Admin Dose 15 UNITS; Start 04/20/18 at 20:00 Meropenem/Sodium Chloride 50 ml @ 100 mls/hr Q12 IVPB Last administered on 04/23/18 21:31; Admin Dose 100 MLS/HR; Start 04/21/18 at 13:00 Vancomycin HCl (Vanco Iv Per Pharmacy) VANCOMYCIN PER PHARMACY PER PROTOCOL XX ; Start 04/21/18 at 12:30 Amiodarone HCl (Cordarone) 100 mg QHS PO Last administered on 04/23/18 21:31; Admin Dose 100 MG; Start 04/21/18 at 21:00 Amiodarone HCl (Cordarone) 200 mg QAM PO Last administered on 04/24/18 08:14; Admin Dose 200 MG; Start 04/22/18 at 09:00 Memantine (Namenda) 5 mg BID PO Last administered on 04/24/18 08:14; Admin Dose 5 MG; Start 04/21/18 at 21:00 Aspirin (Aspirin) 81 mg DAILY PO Last administered on 04/24/18 08:14; Admin Dose 81 MG; Start 04/22/18 at 09:00 Vancomycin/Sodium Chloride 250 ml @ 125 mls/hr Q48H IVPB ; Start 04/24/18 at 15:00 Insulin Aspart (Novolog Insulin Pen) (Adult SC Insulin - Moder... Q6 SC Last administered on 04/24/18at 00:33; Admin Dose 2 UNIT; Start 04/23/18 at 00:00 Hydromorphone HCl (Dilaudid) 1 mg Q6H PRN IV SEVERE PAIN LEVEL 7-10 Last administered on 04/24/18at 03:45; Admin Dose 1 MG; Start 04/23/18 at 02:30 Potassium Chloride/Sodium Chloride 1,000 ml @ 75 mls/hr [id number] IV Last administered on 04/24/18at 03:45; Admin Dose 75 MLS/HR; Start 04/23/18 at 10:30 MEETA SPENCER MD Apr 24, 2018 09:00
[2018-04-24] MEDS: MEROPENEM 500MG/50 ML (PMX) 50 ML IVPB SCH ×2 (10:07→20:07)
--- NOTE | 2018-04-24 10:20 | PN ---
Date/Time of Note Date/Time of Note DATE: 04/24/18 TIME: 10:18 Assessment/Plan VTE Prophylaxis Risk score (from Nsg)>0 risk: 4 SCD applied (from Nsg): Yes Pharmacological prophylaxis: heparin Lines/Catheters IV Catheter Type (from Nrsg): Mid Line Urinary Cath still in place: Yes Reason Cath still needed: terminal illness/intractable pain Assessment/Plan Assessment/Plan 1. Acute toxic encephalopathy- resolved - Patient appears at baseline per correction. unable to care for self or make needs known - Neurology consultation appreciated and CT results noted 2. Sepsis secondary to UTI and bacteremia- improving - Blood and urine cultures noted - WBC trending downward and Cdiff negative - ID on board for antibiotics management and recommending continue current treatment - ECHO noted - LA normalized 3. Prerenal azotemia - Renal function normalized and back to baseline - Nephrology consultation appreciated. recommending continue current fluids - Renal US results noted 4. Hypernatremia, hypovolemic- resolved 5. h/o DM - last A1c 02/2018 was 6.4 - ISS and accuchecks 6. afib - continue on home dose of Amiodarone 7. HTN - stable off home meds - Lasix, hctz, and lisinopril on hold - PRN hydralazine if needed 8. 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 BPH - on terazosin 10. psychosis - on valproic acid BID 11. Disposition - Medically stable for transition to [facility]. SW will be made aware of request for code status change with conservator. Patient still requiring NG tube and continues with speech evaluation for advancing diet. If unable to tolerate PO, PEG vs hospice may need to be addressed in the near future Result Diagram: 04/24/18 0552 04/24/18 0552 Results 24hrs Laboratory Tests Test 04/23/18 11:58 04/23/18 17:09 04/23/18 21:30 04/24/18 00:15 Bedside Glucose 155 141 148 146 Test 04/24/18 05:43 04/24/18 05:52 04/24/18 08:03 Bedside Glucose 136 143 White Blood Count 12.1 #H Red Blood Count 3.01 L Hemoglobin 9.1 L Hematocrit 28.2 L Mean Corpuscular Volume 93.7 Mean Corpuscular 30.2 Hemoglobin Mean Corpuscular 32.3 Hemoglobin Concent Red Cell Distribution 14.9 H Width Platelet Count 322 Mean Platelet Volume 11.7 H Immature Granulocytes % 6.100 H Neutrophils % Segmented Neutrophils 75 % (Manual) Band Neutrophils % 4 (Manual) Lymphocytes % Lymphocytes % (Manual) 7 L Reactive Lymphocytes 1 H % (Manual) Monocytes % Monocytes % (Manual) 4 Eosinophils % Eosinophils % (Manual) 1 Basophils % Metamyelocytes % 2 H (manual) Myelocytes % (Manual) 6 H Nucleated Red Blood 0.0 Cells % Immature Granulocytes # 0.730 H Neutrophils # Neutrophils # (Manual) 9.1 H Band Neutrophils # 0.4 Lymphocytes (Manual) 0.8 Lymphocytes # Reactive Lymphocytes # 0.1 H Monocytes # Monocytes # (Manual) 0.4 Eosinophils # Basophils # Metamyelocytes # 0.2 H Myelocytes # 0.7 H Nucleated Red Blood Cells # Platelet Estimate NORMAL Giant Platelets 1 H Polychromasia 1+ Anisocytosis 1+ Microcytosis 1+ Sodium Level 145 H Potassium Level 3.9 Chloride Level 118 H Carbon Dioxide Level 23 Anion Gap 4 L Blood Urea Nitrogen 54 #H Creatinine 1.09 Glucose Level 127 Calcium Level 7.6 L Phosphorus Level 2.7 Magnesium Level 1.8 Albumin 2.3 L Subjective 24 Hr Interval Summary Free Text/Dictation Patient still moaning when touched but no acute overnight events. Accepted to [facility] today and stable for discharge. Exam/Review of Systems Vital Signs Vitals Vital Signs Date Temp Pulse Resp B/P (MAP) Pulse Ox O2 O2 Flow FiO2 Time Delivery Rate 04/24/18 98.9 77 18 118/57 98 Nasal 09:00 (77) Cannula 04/24/18 2.0 08:36 04/24/18 28 08:36 Intake and Output 04/23/18 04/23/18 04/24/18 1414:59 22:59 06:59 IntakeIntake Total 500 ml 750 ml OutputOutput Total 600 ml 1500 ml BalanceBalance -100 ml -750 ml Exam General: Patient is laying in bed, moans when touched Mentation: Patient is not alert and oriented. no following commands. Neck: Supple Respiratory: Clear to auscultation bilaterally, diminished. no wheezing or rh onchi Cardiovascular: regular rate and rhythm, no obvious murmurs Gastrointestinal: soft, non-tender to palpation, nondistended, bowel sounds heard. Neurological: Moves all extremities spontaneously, but only to noxious stimuli. moans but does not follow commands Skin: No new skin lesions, pressure ulcers Medications Medications Current Medications IV Flush (NS 3 ml) 3 ml PER PROTOCOL IV ; Start 04/13/18 at 18:30 Ondansetron HCl (Zofran Inj) 4 mg Q6H PRN IV NAUSEA AND/OR VOMITING; Start 04/13/18 at 18:30 Acetaminophen (Tylenol Supp) 650 mg Q6H PRN [place] PAIN LEVEL 1-3 OR FEVER; Start 04/13/18 at 18:30 Pantoprazole (Protonix Iv) 40 mg DAILY@06 IV Last administered on 04/24/18at 05:44; Admin Dose 40 MG; Start 04/14/18 at 06:00 Heparin Sodium (Porcine) (Heparin (5000 Units/1ml)) 5,000 unit BID SC ; Start 04/13/18 at 21:00; Status Hold Hydralazine HCl (Apresoline) 10 mg Q4H PRN IV SBP >170; Start 04/13/18 at 19:00 Miscellaneous Information 1 ea NOTE XX ; Start 04/13/18 at 19:30 Glucose (Glutose) 15 gm Q15M PRN PO DECREASED GLUCOSE; Start 04/13/18 at 19:30 Glucose (Glutose) 22.5 gm Q15M PRN PO DECREASED GLUCOSE; Start 04/13/18 at 19:30 Dextrose (D50w Syringe) 25 ml Q15M PRN IV DECREASED GLUCOSE; Start 04/13/18 at 19:30 Dextrose (D50w Syringe) 50 ml Q15M PRN IV DECREASED GLUCOSE; Start 04/13/18 at 19:30 Glucagon (Glucagen) 1 mg Q15M PRN IM DECREASED GLUCOSE; Start 04/13/18 at 19:30 Glucose (Glutose) 15 gm Q15M PRN BUCCAL DECREASED GLUCOSE; Start 04/13/18 at 19:30 Insulin Glargine (Lantus) 16 units DAILY@0800 SC Last administered on 04/24/18at 08:17; Admin Dose 16 UNITS; Start 04/16/18 at 08:00 Collagenase (Santyl) 1 applic DAILY TOP Last administered on 04/24/18at 08:13; Admin Dose 1 APPLIC; Start 04/15/18 at 11:00 Albuterol/ Ipratropium (Duoneb) 3 ml Q6HWA RESP THERAPY HHN Last administered on 04/23/18 14:16; Admin Dose 3 ML; Start 04/16/18 at 14:00 Albuterol/ Ipratropium (Duoneb) 3 ml Q2H RESP THERAPY PRN HHN shortness of breath Last administered on 04/21/18 05:48; Admin Dose 3 ML; Start 04/16/18 at 10:00 Haloperidol (Haldol) 5 mg Q12H PRN IM agitation Last administered on 04/21/18 04:25; Admin Dose 5 MG; Start 04/17/18 at 09:30 Insulin Glargine (Lantus) 15 units DAILY@2000 SC Last administered on 04/23/18 21:38; Admin Dose 15 UNITS; Start 04/20/18 at 20:00 Meropenem/Sodium Chloride 50 ml @ 100 mls/hr Q12 IVPB Last administered on 04/24/18 10:07; Admin Dose 100 MLS/HR; Start 04/21/18 at 13:00 Vancomycin HCl (Vanco Iv Per Pharmacy) VANCOMYCIN PER PHARMACY PER PROTOCOL XX ; Start 04/21/18 at 12:30 Amiodarone HCl (Cordarone) 100 mg QHS PO Last administered on 04/23/18 21:31; Admin Dose 100 MG; Start 04/21/18 at 21:00 Amiodarone HCl (Cordarone) 200 mg QAM PO Last administered on 04/24/18 08:14; Admin Dose 200 MG; Start 04/22/18 at 09:00 Memantine (Namenda) 5 mg BID PO Last administered on 04/24/18 08:14; Admin Dose 5 MG; Start 04/21/18 at 21:00 Aspirin (Aspirin) 81 mg DAILY PO Last administered on 04/24/18 08:14; Admin Dose 81 MG; Start 04/22/18 at 09:00 Vancomycin/Sodium Chloride 250 ml @ 125 mls/hr Q48H IVPB ; Start 04/24/18 at 15:00 Insulin Aspart (Novolog Insulin Pen) (Adult SC Insulin - Moder... Q6 SC Last administered on 04/24/18 00:33; Admin Dose 2 UNIT; Start 04/23/18 at 00:00 Hydromorphone HCl (Dilaudid) 1 mg Q6H PRN IV SEVERE PAIN LEVEL 7-10 Last administered on 04/24/18at 03:45; Admin Dose 1 MG; Start 04/23/18 at 02:30 Potassium Chloride/Sodium Chloride 1,000 ml @ 75 mls/hr [id number] IV Last administered on 04/24/18at 03:45; Admin Dose 75 MLS/HR; Start 04/23/18 at 10:30 JOHN CORRAL MD Apr 24, 2018 10:20
--- NOTE | 2018-04-24 10:36 | PDOCDIS ---
Discharge Instructions DIAGNOSIS Discharge Diagnosis 1. Acute toxic encephalopathy- resolved 2. Sepsis secondary to UTI and bacteremia- improving 3. Prerenal azotemia- resolved 4. Hypernatremia, hypovolemic- resolving 5. h/o DM 6. afib 7. HTN 8. Dementia/Alzheimer 9. BPH 10. psychosis CONDITION [id number] Patient Condition: [id number] Stable HOME CARE INSTRUCTIONS: [id number] Special Diet: [id number] tube feeds via NG FOLLOW UP/APPOINTMENTS Follow-up Plan 1. Continue all current care JOHN CORRAL MD Apr 24, 2018 10:36
--- NOTE | 2018-04-24 13:50 | CONS ---
Assessment/Plan Assessment/Plan Hospital Course A: 87 yo M with multiple comorbidities who p/w ams, for which neurology is consulted. UA +++, blood cx + LOVE + This is most clinically consistent with an acute and multifactorial toxic- metabolic on chronic encephalopathy. CTH is reassuringly without acute intracranial pathology. P: Ok to defer additional neuroimaging for now Other medical management and supportive care per primary [place] as able Limit sedating medications where possible PT/OT/ST as tolerated Will follow clinically Result Diagram: 04/24/18 0552 04/24/18 0552 Results 24hrs Laboratory Tests Test 04/23/18 17:09 04/23/18 21:30 04/24/18 00:15 04/24/18 05:43 Bedside Glucose 141 148 146 136 Test 04/24/18 05:52 04/24/18 08:03 04/24/18 11:25 White Blood Count 12.1 #H Red Blood Count 3.01 L Hemoglobin 9.1 L Hematocrit 28.2 L Mean Corpuscular Volume 93.7 Mean Corpuscular 30.2 Hemoglobin Mean Corpuscular 32.3 Hemoglobin Concent Red Cell Distribution 14.9 H Width Platelet Count 322 Mean Platelet Volume 11.7 H Immature Granulocytes % 6.100 H Neutrophils % Segmented Neutrophils 75 % (Manual) Band Neutrophils % 4 (Manual) Lymphocytes % Lymphocytes % (Manual) 7 L Reactive Lymphocytes 1 H % (Manual) Monocytes % Monocytes % (Manual) 4 Eosinophils % Eosinophils % (Manual) 1 Basophils % Metamyelocytes % 2 H (manual) Myelocytes % (Manual) 6 H Nucleated Red Blood 0.0 Cells % Immature Granulocytes # 0.730 H Neutrophils # Neutrophils # (Manual) 9.1 H Band Neutrophils # 0.4 Lymphocytes (Manual) 0.8 Lymphocytes # Reactive Lymphocytes # 0.1 H Monocytes # Monocytes # (Manual) 0.4 Eosinophils # Basophils # Metamyelocytes # 0.2 H Myelocytes # 0.7 H Nucleated Red Blood Cells # Platelet Estimate NORMAL Giant Platelets 1 H Polychromasia 1+ Anisocytosis 1+ Microcytosis 1+ Sodium Level 145 H Potassium Level 3.9 Chloride Level 118 H Carbon Dioxide Level 23 Anion Gap 4 L Blood Urea Nitrogen 54 #H Creatinine 1.09 Glucose Level 127 Calcium Level 7.6 L Phosphorus Level 2.7 Magnesium Level 1.8 Albumin 2.3 L Bedside Glucose 143 163 Consultation Date/Type/Reason Admit Date/Time Apr 13, 2018 at 18:12 Type of Consult Neurology Requesting Provider: ROBERT JACKSON Date/Time of Note DATE: 04/24/18 TIME: 13:49 24 HR Interval Summary Free Text/Dictation Continues acute care Still in 2 point restraints Exam Vital Signs Vitals Vital Signs Date Temp Pulse Resp B/P (MAP) Pulse Ox O2 O2 Flow FiO2 Time Delivery Rate 04/24/18 76 12:27 04/24/18 99.1 18 134/62 97 Nasal 11:00 (86) Cannula 04/24/18 2.0 08:36 04/24/18 28 08:36 Intake and Output 04/23/18 04/23/18 04/24/18 1515:00 23:00 07:00 IntakeIntake Total 500 ml 750 ml OutputOutput Total 600 ml 1500 ml BalanceBalance -100 ml -750 ml Exam PE: Gen Appearance: No Apparent Distress HEENT: Normocephalic Cardiovascular: Regular rate Abdomen: Soft Extremities: Dry, 2 point restraints NE: The patient was lethargic and nonverbal. Cranial nerve examination was limited by mental status. Pupils were equal and reactive to light. There was no afferent pupillary defect. Funduscopic examination was limited. Face was grossly symmetric, w/ present corneal and cough reflexes. Tone was normal. Muscle bulk was normal. I did not see fasciculations. The patient withdrew to noxious stimulation x 4. Coordination and gait testing was limited by mental status. Arm and leg reflexes were within normal limits and symmetric. Nascimento's sign was absent. Plantar responses were flexor. VERONA CISNEROS Apr 24, 2018 13:50
[2018-04-24] MEDS: VANCOMYCIN 750 MG (PMX) 250 ML IVPB SCH (14:18)
--- NOTE | 2018-04-24 14:41 | CONS ---
Date/Time of Note Date/Time of Note DATE: 04/24/18 TIME: 14:40 Assessment/Plan Assessment/Plan Hospital Course No acute changes, looks comfortable, no fevers CT of the abdomen and pelvis revealed inflammatory changes in the distal colon suggestive for a colitis either infectious or inflammatory with the presence of colonic ileus mild small bowel ileus without obstruction scaring and emphysema is seen in the lower lungs with airways marked mucus plugging prostatic enlargement with findings of likely chronic outflow obstructive changes of the bladder Antimicrobials: Vancomycin meropenem Microbiology: Urine culture negative stool for C. difficile negative. Blood culture on admission grew alpha hemolytic strep and coag negative staph species, urine culture grew E. coli Chest x-ray this morning revealed nasogastric tube coiled within the esophagus Indwelling: NG tube, Dia Physical examination: Well-developed chronically ill-appearing elderly man who is in no distress. Head atraumatic normocephalic sclera nonicteric vehicle mucosa dry neck is supple chest rise symmetrical breath sounds diminished bases. Heart: S1-S2. Abdomen soft bowel sounds present extremities without cyanosis, trace edema Assessment: 1. Severe sepsis 2. Probable acute aspiration secondary to NG tube dislodgment==> now in position 3. Colitis with stool came back negative for C. difficile 4. Ileus 5. Status post polymicrobial bacteremia. 2D echo revealed no evidence for vegetations 6. Status post E. coli UTI 7. Acute encephalopathy 8. BPH 9. Hypertension Plan: Clinically unchanged, responding to antibiotics, wbc trending down, continue present care aspiration precautions Result Diagram: 04/24/18 0552 04/24/18 0552 Results 24hrs Laboratory Tests Test 04/23/18 17:09 04/23/18 21:30 04/24/18 00:15 04/24/18 05:43 Bedside Glucose 141 148 146 136 Test 04/24/18 05:52 04/24/18 08:03 04/24/18 11:25 White Blood Count 12.1 #H Red Blood Count 3.01 L Hemoglobin 9.1 L Hematocrit 28.2 L Mean Corpuscular Volume 93.7 Mean Corpuscular 30.2 Hemoglobin Mean Corpuscular 32.3 Hemoglobin Concent Red Cell Distribution 14.9 H Width Platelet Count 322 Mean Platelet Volume 11.7 H Immature Granulocytes % 6.100 H Neutrophils % Segmented Neutrophils 75 % (Manual) Band Neutrophils % 4 (Manual) Lymphocytes % Lymphocytes % (Manual) 7 L Reactive Lymphocytes 1 H % (Manual) Monocytes % Monocytes % (Manual) 4 Eosinophils % Eosinophils % (Manual) 1 Basophils % Metamyelocytes % 2 H (manual) Myelocytes % (Manual) 6 H Nucleated Red Blood 0.0 Cells % Immature Granulocytes # 0.730 H Neutrophils # Neutrophils # (Manual) 9.1 H Band Neutrophils # 0.4 Lymphocytes (Manual) 0.8 Lymphocytes # Reactive Lymphocytes # 0.1 H Monocytes # Monocytes # (Manual) 0.4 Eosinophils # Basophils # Metamyelocytes # 0.2 H Myelocytes # 0.7 H Nucleated Red Blood Cells # Platelet Estimate NORMAL Giant Platelets 1 H Polychromasia 1+ Anisocytosis 1+ Microcytosis 1+ Sodium Level 145 H Potassium Level 3.9 Chloride Level 118 H Carbon Dioxide Level 23 Anion Gap 4 L Blood Urea Nitrogen 54 #H Creatinine 1.09 Glucose Level 127 Calcium Level 7.6 L Phosphorus Level 2.7 Magnesium Level 1.8 Albumin 2.3 L Bedside Glucose 143 163 Consultation Date/Type/Reason Admit Date/Time Apr 13, 2018 at 18:12 Initial Consult Date Type of Consult ID Requesting Provider: ROBERT JACKSON Exam/Review of Systems Vital Signs Vitals Vital Signs Date Temp Pulse Resp B/P (MAP) Pulse Ox O2 O2 Flow FiO2 Time Delivery Rate 04/24/18 86 20 98 Nasal 2.0 14:12 Cannula 04/24/18 99.1 134/62 11:00 (86) 04/24/18 28 08:36 Intake and Output 04/23/18 04/23/18 04/24/18 1515:00 23:00 07:00 IntakeIntake Total 500 ml 750 ml OutputOutput Total 600 ml 1500 ml BalanceBalance -100 ml -750 ml Medications Medications Current Medications IV Flush (NS 3 ml) 3 ml PER PROTOCOL IV ; Start 04/13/18 at 18:30 Ondansetron HCl (Zofran Inj) 4 mg Q6H PRN IV NAUSEA AND/OR VOMITING; Start at 18:30 Acetaminophen (Tylenol Supp) 650 mg Q6H PRN [place] PAIN LEVEL 1-3 OR FEVER; Start 04/13/18 at 18:30 Pantoprazole (Protonix Iv) 40 mg DAILY@06 IV Last administered on 04/24/18at 05:44; Admin Dose 40 MG; Start 04/14/18 at 06:00 Heparin Sodium (Porcine) (Heparin (5000 Units/1ml)) 5,000 unit BID SC ; Start 04/13/18 at 21:00; Status Hold Hydralazine HCl (Apresoline) 10 mg Q4H PRN IV SBP >170; Start 04/13/18 at 19:00 Miscellaneous Information 1 ea NOTE XX ; Start 04/13/18 at 19:30 Glucose (Glutose) 15 gm Q15M PRN PO DECREASED GLUCOSE; Start 04/13/18 at 19:30 Glucose (Glutose) 22.5 gm Q15M PRN PO DECREASED GLUCOSE; Start 04/13/18 at 19:30 Dextrose (D50w Syringe) 25 ml Q15M PRN IV DECREASED GLUCOSE; Start 04/13/18 at 19:30 Dextrose (D50w Syringe) 50 ml Q15M PRN IV DECREASED GLUCOSE; Start 04/13/18 at 19:30 Glucagon (Glucagen) 1 mg Q15M PRN IM DECREASED GLUCOSE; Start 04/13/18 at 19:30 Glucose (Glutose) 15 gm Q15M PRN BUCCAL DECREASED GLUCOSE; Start 04/13/18 at 19:30 Insulin Glargine (Lantus) 16 units DAILY@0800 SC Last administered on 04/24/18 08:17; Admin Dose 16 UNITS; Start 04/16/18 at 08:00 Collagenase (Santyl) 1 applic DAILY TOP Last administered on 04/24/18 08:13; Admin Dose 1 APPLIC; Start 04/15/18 at 11:00 Albuterol/ Ipratropium (Duoneb) 3 ml Q6HWA RESP THERAPY HHN Last administered on 04/24/18 14:11; Admin Dose 3 ML; Start 04/16/18 at 14:00 Albuterol/ Ipratropium (Duoneb) 3 ml Q2H RESP THERAPY PRN HHN shortness of breath Last administered on 04/21/18 05:48; Admin Dose 3 ML; Start 04/16/18 at 10:00 Haloperidol (Haldol) 5 mg Q12H PRN IM agitation Last administered on 04/21/18 04:25; Admin Dose 5 MG; Start 04/17/18 at 09:30 Insulin Glargine (Lantus) 15 units DAILY@2000 SC Last administered on 04/23/18 21:38; Admin Dose 15 UNITS; Start 04/20/18 at 20:00 Meropenem/Sodium Chloride 50 ml @ 100 mls/hr Q12 IVPB Last administered on 04/24/18 10:07; Admin Dose 100 MLS/HR; Start 04/21/18 at 13:00 Vancomycin HCl (Vanco Iv Per Pharmacy) VANCOMYCIN PER PHARMACY PER PROTOCOL XX ; Start 04/21/18 at 12:30 Amiodarone HCl (Cordarone) 100 mg QHS PO Last administered on 04/23/18 21:31; Admin Dose 100 MG; Start 04/21/18 at 21:00 Amiodarone HCl (Cordarone) 200 mg QAM PO Last administered on 04/24/18 08:14; Admin Dose 200 MG; Start 04/22/18 at 09:00 Memantine (Namenda) 5 mg BID PO Last administered on 04/24/18 08:14; Admin Dose 5 MG; Start 04/21/18 at 21:00 Aspirin (Aspirin) 81 mg DAILY PO Last administered on 04/24/18 08:14; Admin Dose 81 MG; Start 04/22/18 at 09:00 Vancomycin/Sodium Chloride 250 ml @ 125 mls/hr Q48H IVPB Last administered on 04/24/18 14:18; Admin Dose 125 MLS/HR; Start 04/24/18 at 15:00 Insulin Aspart (Novolog Insulin Pen) (Adult SC Insulin - Moder... Q6 SC Last administered on 04/24/18 11:28; Admin Dose 2 UNIT; Start 04/23/18 at 00:00 Hydromorphone HCl (Dilaudid) 1 mg Q6H PRN IV SEVERE PAIN LEVEL 7-10 Last administered on 04/24/18 12:02; Admin Dose 1 MG; Start 04/23/18 at 02:30 Potassium Chloride/Sodium Chloride 1,000 ml @ 75 mls/hr [id number] IV Last administered on 04/24/18 03:45; Admin Dose 75 MLS/HR; Start 04/23/18 at 10:30 JAMIE WORRELL NP Apr 24, 2018 14:41
--- NOTE | 2018-04-24 18:07 | DS ---
Date/Time of Note Date/Time of Note DATE: 04/24/18 TIME: 18:05 Discharge Summary Admission/Discharge Info Admit Date/Time Apr 13, 2018 at 18:12 Discharge Date/Time Discharge Diagnosis 1. Acute toxic encephalopathy- resolved 2. Sepsis secondary to UTI and bacteremia- improving 3. Prerenal azotemia- resolved 4. Hypernatremia, hypovolemic- resolving 5. h/o DM 6. afib 7. HTN 8. Dementia/Alzheimer 9. BPH 10. psychosis Patient Condition: Stable Consults Neurology- Dr. Ayon Nephrology- Dr. Nair Infectious Disease- Dr. Palomino Palliative- Dr. Hillman Procedures PROCEDURE: XR Chest. CLINICAL INDICATION: Feeding tube placement TECHNIQUE: AP Portable chest. COMPARISON: Chest x-ray 04/22/2018, 04/21/2018 and 04/18/2018 FINDINGS: Enteric tube in stomach. Low lung volumes are noted with bibasilar discoid atelectasis. Normal size heart is present with vascular calcifications of the thoracic aorta. No focal infiltrates masses or effusions are present. No pneumothorax is present. IMPRESSION: 1. Feeding tube in stomach 2. Bibasilar discoid atelectasis 3. Mild atherosclerotic vascular disease RPTAT: HDC .Jazmyne Juarez MD, MD Date Time Electronically viewed and signed by .Jazmyne Juarez MD, MD on 04/22/2018 13:58 PROCEDURE: CT abdomen and pelvis without contrast. CLINICAL INDICATION: Abdominal pain. TECHNIQUE: CT scan of the abdomen and pelvis without contrast was performed on a multi-slice CT scanner . Sagittal and coronal reformatted images were obt ained from the axial source images. One or more of the following dose reduction techniques were used: - Automated exposure control. - Adjustment of the mA and/or kV according to patient size. - Use of iterative reconstruction technique. DICOM images are available DLP 1098.2 mGycm. CTDIvol 18.89 mGy COMPARISON: None FINDINGS: Fine detail of the soft tissues is limited secondary to the lack of IV contrast. Evaluation for enhancing lesions cannot be performed. Lower thorax: Bibasilar scarring and mild atelectasis is present. There is airways wall thickening with foci of lower lung mucus plugging. Emphysema is se en in the lower lungs as well.. Coronary artery calcifications are seen in the heart. Liver: There is uniform density of the liver with no gross focal lesion. Biliary: The gallbladder is unremarkable without surrounding inflammation. No biliary dilatation. Pancreas: Homogeneous density of the pancreas without visible focal lesion or cystic abnormality. There is no pancreatic ductal dilatation. Spleen: Unremarkable without enlargement or focal lesion. Adrenal Glands: The adrenal glands are within normal limits without mass. Urinary: The kidneys are symmetric in size bilaterally. There are no visible renal or ureteral stones. There is no hydronephrosis. There is an elevated trabecular appearance the bladder wall with bladder diverticula. Gastrointestinal: There is wall thickening and edema involving the descending and sigmoid colon with air and fluid distension along with air-fluid levels. This inflammation extends into the rectum as well. The proximal colon is distended with air and fecal material with distension. There is no obstruction. The appendix is unremarkable. Mild air-fluid levels are seen involving loops of small bowel. Lymph nodes: There are no enlarged lymph nodes. Vascular: There is aortic atherosclerosis without aneurysmal dilatation. Peritoneum/mesentery: No free fluid or free air. Reproductive organs: Prostate is moderately enlarged. Musculoskeletal: Degenerative changes are seen in the lumbar spine with no acute osseous abnormality Other: Dia catheter seen in the bladder which is partially decompressed. Gastric catheter extends into the proximal stomach. IMPRESSION: There are inflammatory changes seen involving the distal colon and this suggestive for a colitis which is either infectious or inflammatory with the presence of a colonic ileus. There is also mild small bowel ileus without obstruction or visible appendicitis. Scarring and emphysema is seen in the lower lungs with airways mucus plugging. Atherosclerotic disease is present. No renal or ureteral calculi with no evidence of hydronephrosis. Gastric catheter extends into the proximal stomach and may be advanced for better positioning. Prostatic enlargement with findings of likely chronic outflow obstructive changes of the bladder. RPTAT: AA .Denise Monroe MD, MD Date Time Electronically viewed and signed by .Denise Monroe MD, MD on 04/22/2018 19:24 PROCEDURE: XR Chest. CLINICAL INDICATION: Shortness of breath, pneumonia TECHNIQUE: Single frontal radiograph of the chest. COMPARISON: CHEST 04/18/2018; GLO CHEST 02/23/2014 FINDINGS: Nasogastric tube in satisfactory position. Minimal right basilar infiltrate is unchanged. No pleural effusion. No pneumothorax. The cardiomediastinal silhouette is unremarkable. Vascular calcifications of the aorta are present compatible with atherosclerosis. IMPRESSION: Minimal right basilar infiltrate is unchanged. RPTAT: AADD .Hadley Kumar MD, Date Time Electronically viewed and signed by .Hadley Kumar MD, on 04/21/2018 17:07 PROCEDURE: CT Brain without contrast. CLINICAL INDICATION: Headache TECHNIQUE: A CT of the brain was performed on a GE [employer] 64-slice CT scanner utilizing axial imaging from the skull base through the vertex without IV contrast. Multiplanar reformatted images were made. Images were reviewed on a PACS workstation. The CTDIvol is 39 mGy and the DLP is 634 mGycm. DICOM images are available. One or more of the following dose reduction techniques were utilized: 1.) Automated exposure control 2.) Adjustment of the mA +/- kV according to patient's size 3.) Use of iterative reconstruction technique. COMPARISON: None FINDINGS: There is no intracranial hemorrhage, mass effect, or midline shift. No extra-a xial fluid collection is seen. Diffuse cerebral atrophy changes are present with compensatory ventricular distension related to volume loss. The density of the brain is normal, and the moore white matter differentiation appears well- preserved. The visualized paranasal sinuses and osseous structures are grossly unremarkable. IMPRESSION: 1. diffuse cerebral atrophy 2. Negative exam for acute pathology. RPTAT: HPPP Physician Jennifer Date Time Electronically viewed and signed by Physician Jennifer on 04/18/2018 03:05 PROCEDURE: Ultrasound kidneys CLINICAL INDICATION: Renal insufficiency TECHNIQUE: Multiple sonographic images of the kidneys were obtained. The images were reviewed on a PACS workstation. COMPARISON: None FINDINGS: The left kidney measures 11.1 cm in length. A 2.0 x 1.3 x 1.6 cm cortical cyst is identified. Renal parenchyma otherwise demonstrates normal echotexture. No hydronephrosis or intrarenal calculus. There is no visible perinephric fluid. Right kidney and urinary bladder not visualized. IMPRESSION: Small cortical cyst within the otherwise unremarkable left kidney. No hydronephrosis. Right kidney and urinary bladder not visualized. RPTAT: HJBB Physician Rashad Date Time Electronically viewed and signed by Physician Rashad on 04/14/2018 09:13 Hx of Present Illness 87 yo M PMH COPD, Alzheimerz, atrial fibrillation, BPH, diabetes mellitus, dementia, psychosis, and HTN presented to ED from group home for altered mental status. Patient is a poor historian but has baseline dementia and usually is not able to voice his needs. Per EMS, he is at his baseline. History obtained from ED physician as well as NH charge. Patient is a Full Code as well. Patient found with dehydration at time of presentation and foul smelling urine that appears purulent yellow/green. Home Meds Reported Medications Calcium Carbonate/Vitamin D3 (OYSTER SHELL 500 MG + VIT D TB) 1 Each Tablet, 1 EACH PO Q5PM, TAB 04/13/18 Memantine* (Namenda*) 5 Mg Tablet, 5 MG PO BID, #60 TAB 04/13/18 Furosemide* (Furosemide*) 20 Mg Tablet, 10 MG PO Q9AM, #60 TAB 04/13/18 Terazosin Hcl* (Hytrin*) 1 Mg Cap, 1 MG PO HS, CAP 04/13/18 Saccharomyces Boulardii* (Florastor*) 250 Mg Cap, 250 MG PO BID, CAP 04/13/18 Cranberry Extract (Cranberry) 425 Mg Capsule, 425 MG PO Q9AM, CAP 04/13/18 Aspirin* (Aspirin* EC) 81 Mg Tablet.dr, 81 MG PO DAILY, TAB 04/13/18 Amiodarone Hcl* (Amiodarone Hcl*) 200 Mg Tablet, 200 MG PO QAM, #30 TAB HOLD IF HR<60 04/13/18 Lisinopril* (Lisinopril*) 40 Mg Tablet, 40 MG PO DAILY, #30 TAB HOLD IF SBP<120 AND HR<60 04/13/18 Hydrochlorothiazide* (Hydrochlorothiazide*) 50 Mg Tab, 50 MG PO DAILY, #30 TAB 04/13/18 Valproic Acid* (Valproic Acid* Liq) 250 Mg/5 Ml Syrup, 5 ML PO Q9PM, ML 04/13/18 Valproic Acid* (Valproic Acid* Liq) 250 Mg/5 Ml Syrup, 2.5 ML PO Q9AM, ML 04/13/18 Nitroglycerin* (Nitroglycerin* SL) 0.4 Mg Tab.subl, 0.4 MG SL Q5MIN PRN for CHEST PAIN, BOTTLE 04/13/18 Multivitamin with Minerals (Multivitamins with Minerals) 1 Each Tablet, 1 EACH PO Q9AM, TAB 04/13/18 Amlodipine Besylate* (Norvasc*) 5 Mg Tablet, 5 MG PO Q9AM, TAB HOLD IF SBP<118 04/13/18 Amiodarone Hcl* (Amiodarone Hcl*) 100 Mg Tablet, 100 MG PO QHS, #30 TAB HOLD IF HR<60 04/13/18 Na Phos,M-B/Na Phos,Di-Ba (Fleet Enema Extra) 230 Ml Enema, 230 ML RC NEEDED, ENEMA 04/13/18 Acetaminophen* (Tylenol*) 325 Mg Tablet, 650 MG PO Q4H PRN for MILD PAIN LEVEL 1-3, TAB AND FEVER>100F 04/13/18 Magnesium Hydroxide* (Milk Of Magnesia*) 400 Mg/5 Ml Oral.susp, 30 ML PO QHS PRN for NEEDED, ML 04/13/18 Bisacodyl* (Bisacodyl*) 5 Mg Tablet.dr, 10 MG PO DAILY PRN for CONSTIPATION, TAB 04/13/18 Follow-up Plan 1. Continue all current care Primary Care Provider Not On Staff Doctor Time spent on discharge: > 30 minutes Pending Labs Laboratory Tests Test 04/23/18 21:30 04/24/18 00:15 04/24/18 05:43 04/24/18 05:52 Bedside 148 146 136 Glucose mg/dL (70-220) mg/dL (70-220) mg/dL (70-220) White Blood 12.1 Count 10^3/ul (4.8-1 0.8) Red Blood 3.01 Count 10^6/ul (4.70- 6.10) Hemoglobin 9.1 g/dl (14.0-18. 0) Hematocrit 28.2 % (42.0-52.0) Mean 93.7 Corpuscular fl (82.0-101.0 Volume ) Mean 30.2 Corpuscular pg (29.0-33.0) Hemoglobin Mean 32.3 Corpuscular g/dl (32.0-37. Hemoglobin Conc 0) ent Red Cell 14.9 Distribution % (11.5-14.5) Width Platelet Count 322 10^3/UL (140-4 15) Mean Platelet 11.7 Volume fl (7.4-10.4) Immature 6.100 Granulocytes % % (0.001-0.429 ) Neutrophils % % (39.0-77.0) Segmented 75 % (39-77) Neutrophils % (Manual) Band 4 % (0-4) Neutrophils % (Manual) Lymphocytes % % (15.0-51.0) Lymphocytes % 7 % (15-51) (Manual) Reactive 1 % (0-0) Lymphocytes % (Manual) Monocytes % % (0.0-11.0) Monocytes % 4 % (0-11) (Manual) Eosinophils % % (0.0-7.0) Eosinophils % 1 % (0-7) (Manual) Basophils % % (0.0-2.0) Metamyelocytes 2 % (0-0) % (manual) Myelocytes % 6 % (0-0) (Manual) Nucleated Red 0.0 Blood Cells % /100WBC (0.0-0 .0) Immature 0.730 Granulocytes # 10^3/ul (0.0-0 .031) Neutrophils # 10^3/ul (1.6-7 .5) Neutrophils # 9.1 (Manual) 10^3/ul (1.6-7 .5) Band 0.4 Neutrophils # 10^3/ul (0.0-0 .6) Lymphocytes 0.8 (Manual) 10^3/ul (0.8-2 .9) Lymphocytes # 10^3/ul (0.8-2 .9) Reactive 0.1 Lymphocytes # 10^3/ul (0.0-0 .0) Monocytes # 10^3/ul (0.3-0 .9) Monocytes # 0.4 (Manual) 10^3/ul (0.3-0 .9) Eosinophils # 10^3/ul (0.0-0 .5) Basophils # 10^3/ul (0.0-0 .1) Metamyelocytes 0.2 # 10^3/ul (0.0-0 .0) Myelocytes # 0.7 10^3/ul (0.0-0 .0) Nucleated Red 10^3/ul (0.0-0 Blood Cells # .0) Platelet NORMAL Estimate Giant Platelets 1 % (0-0) Polychromasia 1+ (0-0) Anisocytosis 1+ (0-0) Microcytosis 1+ (0-0) Sodium Level 145 mmol/L (135-14 4) Potassium 3.9 Level mmol/L (3.5-5. 1) Chloride Level 118 mmol/L (97-110 ) Carbon Dioxide 23 Level mmol/L (21-31) Anion Gap 4 (5-13) Blood Urea 54 Nitrogen mg/dl (7-20) Creatinine 1.09 mg/dl (0.61-1. 24) Glucose Level 127 mg/dl (70-220) Calcium Level 7.6 mg/dl (8.4-10. 2) Phosphorus 2.7 Level mg/dl (2.5-4.9 ) Magnesium 1.8 Level mg/dl (1.7-2.5 ) Albumin 2.3 g/dl (3.3-4.9) Test 04/24/18 08:03 04/24/18 11:25 04/24/18 17:05 Bedside 143 163 218 Glucose mg/dL (70-220) mg/dL (70-220) mg/dL (70-220) JOHN CORRAL MD Apr 24, 2018 18:07
[2018-04-25] VITALS (18 sets, daily range): BP systolic 118–140; BP diastolic 53–79; PULSE 72–84; RESP 18–20
[2018-04-25] MEDS ORDERED: HYDROmorphONE 0.5 MG/0.5 ML SYG IV ONE (00:31)
[2018-04-25] MEDS: HALOPERIDOL 5 MG INJ IM PRN (00:35)
[2018-04-25] MEDS: HYDROmorphONE 1 MG/ML SYG IV PRN ×2 (03:13→09:03)
[2018-04-25] MEDS: PANTOPRAZOLE 40 MG INJ IV SCH (05:36)
[2018-04-25] MEDS: INSULIN ASPART [NOVOLOG] 3 ML PEN SC SCH ×4 (05:41→23:38)
[2018-04-25] MEDS: ALBUTEROL/IPRATROPIUM (NEB) 3 ML AMP HHN SCH ×3 (08:21→20:22)
[2018-04-25] MEDS: MEMANTINE 5 MG TAB PO SCH ×2 (08:42→21:07)
[2018-04-25] MEDS: MEROPENEM 500MG/50 ML (PMX) 50 ML IVPB SCH ×2 (08:42→21:08)
[2018-04-25] MEDS: AMIODARONE 200 MG TAB PO SCH ×2 (08:42→21:07)
[2018-04-25] MEDS: COLLAGENASE 5 GM (UD JAR) TOP SCH (08:42)
[2018-04-25] MEDS: ASPIRIN 81 MG TAB PO SCH (08:42)
[2018-04-25] MEDS: BALSAM PERU/CASTOR OIL 60 GM TUBE TOP SCH (08:44)
--- NOTE | 2018-04-25 08:57 | PN ---
Date/Time of Note Date/Time of Note DATE: 04/25/18 TIME: 08:57 Assessment/Plan VTE Prophylaxis Risk score (from Ns)>0 risk: 9 SCD applied (from Ns): Yes Pharmacological prophylaxis: heparin Lines/Catheters IV Catheter Type (from Nrsg): Mid Line Urinary Cath still in place: Yes Reason Cath still needed: skin wounds contaminated by urine Assessment/Plan Assessment/Plan 1. Acute toxic encephalopathy- resolved - Patient appears at baseline per [facility]. unable to care for self or make needs known - Neurology consultation appreciated and CT results noted 2. Psychosis - per nursing records, patient has a history of psychosis and on valproic acid. Will add risperidone 3. Sepsis secondary to UTI and bacteremia- improving - Blood and urine cultures noted - ID on board for antibiotics management and recommending continue current treatment - ECHO noted - LA normalized 4. Prerenal azotemia - Renal function normalized and back to baseline - Nephrology consultation appreciated. recommending continue current fluids - Renal US results noted 5. h/o DM - last A1c 02/2018 was 6.4 - ISS and accuchecks 6. afib - continue on home dose of Amiodarone 7. HTN - stable off home meds - Lasix, hctz, and lisinopril on hold - PRN hydralazine if needed 8. 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 BPH - on terazosin 10. psychosis - on valproic acid BID 11. Disposition - Patient has been screaming which is new and will add risperidone BID given history of psychosis - Pending bed at [place] Result Diagram: 04/25/18 0520 04/25/18 0520 Results 24hrs Laboratory Tests Test 04/24/18 11:25 04/24/18 17:05 04/24/18 20:18 04/24/18 23:34 Bedside Glucose 163 218 169 175 Test 04/25/18 05:20 04/25/18 05:34 04/25/18 08:41 White Blood Count 13.1 H Red Blood Count 2.96 L Hemoglobin 9.1 L Hematocrit 27.8 L Mean Corpuscular 93.9 Volume Mean Corpuscular 30.7 Hemoglobin Mean Corpuscular 32.7 Hemoglobin Concent Red Cell Distribution 15.2 H Width Platelet Count 333 Mean Platelet Volume 11.4 H Immature Granulocytes 4.600 H % Neutrophils % 72.7 Lymphocytes % 10.7 L Monocytes % 9.6 Eosinophils % 1.9 Basophils % 0.5 Nucleated Red Blood 0.0 Cells % Immature Granulocytes 0.600 H # Neutrophils # 9.5 H Lymphocytes # 1.4 Monocytes # 1.3 H Eosinophils # 0.3 Basophils # 0.1 Nucleated Red Blood 0.0 Cells # Sodium Level 147 H Potassium Level 4.2 Chloride Level 119 H Carbon Dioxide Level 23 Anion Gap 5 Blood Urea Nitrogen 38 #H Creatinine 0.88 Glucose Level 148 Calcium Level 7.4 L Phosphorus Level 2.2 L Magnesium Level 1.7 Albumin 2.3 L Bedside Glucose 162 169 Subjective 24 Hr Interval Summary Free Text/Dictation Patient now screaming out per nursing but when interviewed this am he was calm and would moan when touched. Patient given pain control which helps when moaning/screaming. Exam/Review of Systems Vital Signs Vitals Vital Signs Date Temp Pulse Resp B/P (MAP) Pulse Ox O2 O2 Flow FiO2 Time Delivery Rate 04/25/18 82 18 97 Simple 08:21 Mask 04/25/18 99.0 121/60 07:20 (80) 04/25/18 2.0 06:00 04/25/18 28 05:00 Intake and Output 04/24/18 04/24/18 04/25/18 1414:59 22:59 06:59 IntakeIntake Total 1200 ml 1760 ml OutputOutput Total 850 ml 1350 ml BalanceBalance 350 ml 410 ml Exam General: Patient is laying in bed, moans when touched. Mentation: Patient is not alert and oriented. no following commands. Neck: Supple Respiratory: Clear to auscultation bilaterally, diminished. no wheezing or rhonchi Cardiovascular: regular rate and rhythm, no obvious murmurs Gastrointestinal: soft, non-tender to palpation, nondistended, bowel sounds heard. Neurological: Moves all extremities spontaneously, but only to noxious stimuli. moans but does not follow commands Skin: No new skin lesions, pressure ulcers Medications Medications Current Medications IV Flush (NS 3 ml) 3 ml PER PROTOCOL IV ; Start 04/13/18 at 18:30 Ondansetron HCl (Zofran Inj) 4 mg Q6H PRN IV NAUSEA AND/OR VOMITING; Start 04/13/18 at 18:30 Acetaminophen (Tylenol Supp) 650 mg Q6H PRN RI PAIN LEVEL 1-3 OR FEVER; Start 04/13/18 at 18:30 Pantoprazole (Protonix Iv) 40 mg DAILY@06 IV Last administered on 04/25/18 05:36; Admin Dose 40 MG; Start 04/14/18 at 06:00 Heparin Sodium (Porcine) (Heparin (5000 Units/1ml)) 5,000 unit BID SC ; Start 04/13/18 at 21:00; Status Hold Hydralazine HCl (Apresoline) 10 mg Q4H PRN IV SBP >170; Start 04/13/18 at 19:00 Miscellaneous Information 1 ea NOTE XX ; Start 04/13/18 at 19:30 Glucose (Glutose) 15 gm Q15M PRN PO DECREASED GLUCOSE; Start 04/13/18 at 19:30 Glucose (Glutose) 22.5 gm Q15M PRN PO DECREASED GLUCOSE; Start 04/13/18 at 19:30 Dextrose (D50w Syringe) 25 ml Q15M PRN IV DECREASED GLUCOSE; Start 04/13/18 at 19:30 Dextrose (D50w Syringe) 50 ml Q15M PRN IV DECREASED GLUCOSE; Start 04/13/18 at 19:30 Glucagon (Glucagen) 1 mg Q15M PRN IM DECREASED GLUCOSE; Start 04/13/18 at 19:30 Glucose (Glutose) 15 gm Q15M PRN BUCCAL DECREASED GLUCOSE; Start 04/13/18 at 19:30 Insulin Glargine (Lantus) 16 units DAILY@0800 SC Last administered on 04/24/18 08:17; Admin Dose 16 UNITS; Start 04/16/18 at 08:00 Collagenase (Santyl) 1 applic DAILY TOP Last administered on 04/25/18 08:42; Admin Dose 1 APPLIC; Start 04/15/18 at 11:00 Albuterol/ Ipratropium (Duoneb) 3 ml Q6HWA RESP THERAPY HHN Last administered on 04/25/18 08:21; Admin Dose 3 ML; Start 04/16/18 at 14:00 Albuterol/ Ipratropium (Duoneb) 3 ml Q2H RESP THERAPY PRN HHN shortness of breath Last administered on 04/21/18 05:48; Admin Dose 3 ML; Start 04/16/18 at 10:00 Haloperidol (Haldol) 5 mg Q12H PRN IM agitation Last administered on 04/25/18 00:35; Admin Dose 5 MG; Start 04/17/18 at 09:30 Insulin Glargine (Lantus) 15 units DAILY@2000 SC Last administered on 04/24/18 20:28; Admin Dose 15 UNITS; Start 04/20/18 at 20:00 Meropenem/Sodium Chloride 50 ml @ 100 mls/hr Q12 IVPB Last administered on 04/25/18 08:42; Admin Dose 100 MLS/HR; Start 04/21/18 at 13:00 Vancomycin HCl (Vanco Iv Per Pharmacy) VANCOMYCIN PER PHARMACY PER PROTOCOL XX ; Start 04/21/18 at 12:30 Amiodarone HCl (Cordarone) 100 mg QHS PO Last administered on 04/24/18 20:07; Admin Dose 100 MG; Start 04/21/18 at 21:00 Amiodarone HCl (Cordarone) 200 mg QAM PO Last administered on 04/25/18 08:42; Admin Dose 200 MG; Start 04/22/18 at 09:00 Memantine (Namenda) 5 mg BID PO Last administered on 04/25/18 08:42; Admin Dose 5 MG; Start 04/21/18 at 21:00 Aspirin (Aspirin) 81 mg DAILY PO Last administered on 04/25/18 08:42; Admin Dose 81 MG; Start 04/22/18 at 09:00 Vancomycin/Sodium Chloride 250 ml @ 125 mls/hr Q48H IVPB Last administered on 04/24/18 14:18; Admin Dose 125 MLS/HR; Start 04/24/18 at 15:00 Insulin Aspart (Novolog Insulin Pen) (Adult SC Insulin - Moder... Q6 SC Last administered on 04/25/18 05:41; Admin Dose 2 UNIT; Start 04/23/18 at 00:00 Hydromorphone HCl (Dilaudid) 1 mg Q6H PRN IV SEVERE PAIN LEVEL 7-10 Last admin istered on 04/25/18 03:13; Admin Dose 1 MG; Start 04/23/18 at 02:30 Potassium Chloride/Sodium Chloride 1,000 ml @ 75 mls/hr [id number] IV Last administered on 04/24/18 19:18; Admin Dose 75 MLS/HR; Start 04/23/18 at 10:30 JOHN CORRAL MD Apr 25, 2018 08:57
[2018-04-25] MEDS: INSULIN GLARGINE [LANTus] (100 UNITS/ML) SYG SC SCH ×2 (10:11→21:21)
--- NOTE | 2018-04-25 12:26 | CONS ---
Date/Time of Note Date/Time of Note DATE: 04/25/18 TIME: 12:25 Assessment/Plan Assessment/Plan Hospital Course Remains unchanged afebrile in no distress WBC 13.1 platelets 333 neutrophils 72.7 BUN [address] of the abdomen and pelvis revealed inflammatory changes in the distal colon suggestive for a colitis either infectious or inflammatory with the presence of colonic ileus mild small bowel ileus without obstruction scaring and emphysema is seen in the lower lungs with airways marked mucus plugging prostatic enlargement with findings of likely chronic outflow obstructive changes of the bladder Antimicrobials: Vancomycin meropenem Microbiology: Urine culture negative stool for C. difficile negative. Blood culture on admission grew alpha hemolytic strep and coag negative staph species, urine culture grew E. coli Chest x-ray this morning revealed nasogastric tube coiled within the esophagus Indwelling: NG tube, Dia Physical examination: Well-developed chronically ill-appearing elderly man who is in no distress. Head atraumatic normocephalic sclera nonicteric vehicle mucosa dry neck is supple chest rise symmetrical breath sounds diminished bases. Heart: S1-S2. Abdomen soft bowel sounds present extremities without cyanosis, trace edema Assessment: 1. Severe sepsis 2. Probable acute aspiration secondary to NG tube dislodgment==> now in position 3. Colitis with stool came back negative for C. difficile 4. Ileus 5. Status post polymicrobial bacteremia. 2D echo revealed no evidence for vegetations 6. Status post E. coli UTI 7. Acute encephalopathy 8. BPH 9. Hypertension Plan: Clinically unchanged, continue antibiotics, aspiration precautions Result Diagram: 04/25/18 0520 04/25/18 0520 Results 24hrs Laboratory Tests Test 04/24/18 17:05 04/24/18 20:18 04/24/18 23:34 04/25/18 05:20 Bedside Glucose 218 169 175 White Blood Count 13.1 H Red Blood Count 2.96 L Hemoglobin 9.1 L Hematocrit 27.8 L Mean Corpuscular 93.9 Volume Mean Corpuscular 30.7 Hemoglobin Mean Corpuscular 32.7 Hemoglobin Concent Red Cell 15.2 H Distribution Width Platelet Count 333 Mean Platelet Volume 11.4 H Immature 4.600 H Granulocytes % Neutrophils % 72.7 Lymphocytes % 10.7 L Monocytes % 9.6 Eosinophils % 1.9 Basophils % 0.5 Nucleated Red Blood 0.0 Cells % Immature 0.600 H Granulocytes # Neutrophils # 9.5 H Lymphocytes # 1.4 Monocytes # 1.3 H Eosinophils # 0.3 Basophils # 0.1 Nucleated Red Blood 0.0 Cells # Sodium Level 147 H Potassium Level 4.2 Chloride Level 119 H Carbon Dioxide Level 23 Anion Gap 5 Blood Urea Nitrogen 38 #H Creatinine 0.88 Glucose Level 148 Calcium Level 7.4 L Phosphorus Level 2.2 L Magnesium Level 1.7 Albumin 2.3 L Test 04/25/18 05:34 04/25/18 08:41 04/25/18 10:06 Bedside Glucose 162 169 140 Consultation Date/Type/Reason Admit Date/Time Apr 13, 2018 at 18:12 Initial Consult Date Type of Consult ID Requesting Provider: ROBERT JACKSON Exam/Review of Systems Vital Signs Vitals Vital Signs Date Temp Pulse Resp B/P (MAP) Pulse Ox O2 O2 Flow FiO2 Time Delivery Rate 04/25/18 98.9 77 18 130/62 97 Nasal 11:20 (84) Cannula 04/25/18 2.0 08:20 04/25/18 28 05:00 Intake and Output 04/24/18 04/24/18 04/25/18 1515:00 23:00 07:00 IntakeIntake Total 1200 ml 1760 ml OutputOutput Total 850 ml 1350 ml BalanceBalance 350 ml 410 ml Medications Medications Current Medications IV Flush (NS 3 ml) 3 ml PER PROTOCOL IV ; Start 04/13/18 at 18:30 Ondansetron HCl (Zofran Inj) 4 mg Q6H PRN IV NAUSEA AND/OR VOMITING; Start 04/13/18 at 18:30 Acetaminophen (Tylenol Supp) 650 mg Q6H PRN [place] PAIN LEVEL 1-3 OR FEVER; Start 04/13/18 at 18:30 Pantoprazole (Protonix Iv) 40 mg DAILY@06 IV Last administered on 04/25/18at 05:36; Admin Dose 40 MG; Start 04/14/18 at 06:00 Heparin Sodium (Porcine) (Heparin (5000 Units/1ml)) 5,000 unit BID SC ; Start 04/13/18 at 21:00; Status Hold Hydralazine HCl (Apresoline) 10 mg Q4H PRN IV SBP >170; Start 04/13/18 at 19:00 Miscellaneous Information 1 ea NOTE XX ; Start 04/13/18 at 19:30 Glucose (Glutose) 15 gm Q15M PRN PO DECREASED GLUCOSE; Start 04/13/18 at 19:30 Glucose (Glutose) 22.5 gm Q15M PRN PO DECREASED GLUCOSE; Start 04/13/18 at 19:30 Dextrose (D50w Syringe) 25 ml Q15M PRN IV DECREASED GLUCOSE; Start 04/13/18 at 19:30 Dextrose (D50w Syringe) 50 ml Q15M PRN IV DECREASED GLUCOSE; Start 04/13/18 at 19:30 Glucagon (Glucagen) 1 mg Q15M PRN IM DECREASED GLUCOSE; Start 04/13/18 at 19:30 Glucose (Glutose) 15 gm Q15M PRN BUCCAL DECREASED GLUCOSE; Start 04/13/18 at 19:30 Insulin Glargine (Lantus) 16 units DAILY@0800 SC Last administered on 04/25/18 10:11; Admin Dose 16 UNITS; Start 04/16/18 at 08:00 Collagenase (Santyl) 1 applic DAILY TOP Last administered on 04/25/18 08:42; Admin Dose 1 APPLIC; Start 04/15/18 at 11:00 Albuterol/ Ipratropium (Duoneb) 3 ml Q6HWA RESP THERAPY HHN Last administered on 04/25/18 08:21; Admin Dose 3 ML; Start 04/16/18 at 14:00 Albuterol/ Ipratropium (Duoneb) 3 ml Q2H RESP THERAPY PRN HHN shortness of breath Last administered on 04/21/18 05:48; Admin Dose 3 ML; Start 04/16/18 at 10:00 Haloperidol (Haldol) 5 mg Q12H PRN IM agitation Last administered on 04/25/18 00:35; Admin Dose 5 MG; Start 04/17/18 at 09:30 Insulin Glargine (Lantus) 15 units DAILY@2000 SC Last administered on 04/24/18 20:28; Admin Dose 15 UNITS; Start 04/20/18 at 20:00 Meropenem/Sodium Chloride 50 ml @ 100 mls/hr Q12 IVPB Last administered on 04/25/18 08:42; Admin Dose 100 MLS/HR; Start 04/21/18 at 13:00 Vancomycin HCl (Vanco Iv Per Pharmacy) VANCOMYCIN PER PHARMACY PER PROTOCOL XX ; Start 04/21/18 at 12:30 Amiodarone HCl (Cordarone) 100 mg QHS PO Last administered on 04/24/18 20:07; Admin Dose 100 MG; Start 04/21/18 at 21:00 Amiodarone HCl (Cordarone) 200 mg QAM PO Last administered on 04/25/18 08:42; Admin Dose 200 MG; Start 04/22/18 at 09:00 Memantine (Namenda) 5 mg BID PO Last administered on 04/25/18 08:42; Admin Dose 5 MG; Start 04/21/18 at 21:00 Aspirin (Aspirin) 81 mg DAILY PO Last administered on 04/25/18 08:42; Admin Dose 81 MG; Start 04/22/18 at 09:00 Vancomycin/Sodium Chloride 250 ml @ 125 mls/hr Q48H IVPB Last administered on 04/24/18 14:18; Admin Dose 125 MLS/HR; Start 04/24/18 at 15:00 Insulin Aspart (Novolog Insulin Pen) (Adult SC Insulin - Moder... Q6 SC Last administered on 04/25/18 05:41; Admin Dose 2 UNIT; Start 04/23/18 at 00:00 Hydromorphone HCl (Dilaudid) 1 mg Q6H PRN IV SEVERE PAIN LEVEL 7-10 Last administered on 04/25/18 09:03; Admin Dose 1 MG; Start 04/23/18 at 02:30 Potassium Chloride/Sodium Chloride 1,000 ml @ 75 mls/hr [id number] IV Last administered on 04/24/18 19:18; Admin Dose 75 MLS/HR; Start 04/23/18 at 10:30 Miscellaneous Information (*Rx Drug Level Order Reminder*) 1 ONCE ONCE XX ; Start 04/26/18 at 14:00; Stop 04/26/18 at 14:01 JAMIE WORRELL NP Apr 25, 2018 12:26
[2018-04-25] MEDS: 1/2 NS + KCL 20 MEQ 1,000 ML IV SCH (13:06)
[2018-04-25] MEDS ORDERED: HYDROmorphONE 1 MG/ML SYG IV PRN (14:30)
[2018-04-25] MEDS: RISPERIDONE (1 MG/ML PO SYG) NGT SCH ×2 (15:30→21:07)
[2018-04-25] MEDS ORDERED: RISPERIDONE (1 MG/ML PO SYG) PO SCH (15:30)
--- NOTE | 2018-04-25 16:07 | CONS ---
Assessment/Plan Assessment/Plan Hospital Course A: 87 yo M with multiple comorbidities who p/w ams, for which neurology is consulted. UA +++, blood cx + LOVE + This is most clinically consistent with an acute and multifactorial toxic- metabolic on chronic encephalopathy. CTH is reassuringly without acute intracranial pathology. P: Ok to defer additional neuroimaging for now Other medical management and supportive care per primary [place] as able Limit sedating medications where possible PT/OT/ST as tolerated Will follow clinically Result Diagram: 04/25/1851904/25/18519 Results 24hrs Laboratory Tests Test 04/24/18 17:05 04/24/18 20:18 04/24/18 23:34 04/25/18 05:20 Bedside Glucose 218 169 175 White Blood Count 13.1 H Red Blood Count 2.96 L Hemoglobin 9.1 L Hematocrit 27.8 L Mean Corpuscular 93.9 Volume Mean Corpuscular 30.7 Hemoglobin Mean Corpuscular 32.7 Hemoglobin Concent Red Cell 15.2 H Distribution Width Platelet Count 333 Mean Platelet Volume 11.4 H Immature 4.600 H Granulocytes % Neutrophils % 72.7 Lymphocytes % 10.7 L Monocytes % 9.6 Eosinophils % 1.9 Basophils % 0.5 Nucleated Red Blood 0.0 Cells % Immature 0.600 H Granulocytes # Neutrophils # 9.5 H Lymphocytes # 1.4 Monocytes # 1.3 H Eosinophils # 0.3 Basophils # 0.1 Nucleated Red Blood 0.0 Cells # Sodium Level 147 H Potassium Level 4.2 Chloride Level 119 H Carbon Dioxide Level 23 Anion Gap 5 Blood Urea Nitrogen 38 #H Creatinine 0.88 Glucose Level 148 Calcium Level 7.4 L Phosphorus Level 2.2 L Magnesium Level 1.7 Albumin 2.3 L Test 04/25/18 05:34 04/25/18 08:41 04/25/18 10:06 04/25/18 13:00 Bedside Glucose 162 169 140 191 Consultation Date/Type/Reason Admit Date/Time Apr 13, 2018 at 18:12 Type of Consult Neurology Reason for Consultation ams Requesting Provider: ROBERT JACKSON Date/Time of Note DATE: 04/25/18 TIME: 16:07 24 HR Interval Summary Free Text/Dictation Continues telemetry monitoring. No acute events reported. Awaiting swallow eval. Exam Vital Signs Vitals Vital Signs Date Temp Pulse Resp B/P (MAP) Pulse Ox O2 O2 Flow FiO2 Time Delivery Rate 04/25/18 98.5 82 18 122/64 97 Nasal 15:20 (83) Cannula 04/25/18 2.0 14:18 04/25/18 28 05:00 Intake and Output 04/24/18 04/24/18 04/25/18 1515:00 23:00 07:00 IntakeIntake Total 1200 ml 1760 ml OutputOutput Total 850 ml 1350 ml BalanceBalance 350 ml 410 ml Exam PE: Gen Appearance: No Apparent Distress HEENT: Normocephalic Cardiovascular: Regular rate Abdomen: Soft Extremities: Dry, 2 point restraints NE: The patient was lethargic and nonverbal. Cranial nerve examination was limited by mental status. Pupils were equal and reactive to light. There was no afferent pupillary defect. Funduscopic examination was limited. Face was grossly symmetric, w/ present corneal and cough reflexes. Tone was normal. Muscle bulk was normal. I did not see fasciculations. The patient withdrew to noxious stimulation x 4. Coordination and gait testing was limited by mental status. Arm and leg reflexes were within normal limits and symmetric. Nascimento's sign was absent. Plantar responses were flexor. PEACE JUSTIN NP Apr 25, 2018 16:07
--- NOTE | 2018-04-25 16:19 | CONS ---
Date/Time of Note Date/Time of Note DATE: 04/25/18 TIME: 16:18 Assessment/Plan Assessment/Plan Assessment/Plan 87 yo Male with 1) Pre Renal Azotemia 2) Dehydration 3) Hypernatremia 4) AMS 5) Anemia, Chronic 6) Sepsis 7) Underlying CKD unspecified at this time. 8) Hypokalemia Cdiff negative Pre Renal Azotemia cont to improve Non oliguric Free H20 flushes to 200 q4hr. Supplement K through NGT, ordered. Renal US reviewed, No hydronephrosis. Result Diagram: 04/25/1851904/25/18519 Results 24hrs Laboratory Tests Test 04/24/18 17:05 04/24/18 20:18 04/24/18 23:34 04/25/18 05:20 Bedside Glucose 218 169 175 White Blood Count 13.1 H Red Blood Count 2.96 L Hemoglobin 9.1 L Hematocrit 27.8 L Mean Corpuscular 93.9 Volume Mean Corpuscular 30.7 Hemoglobin Mean Corpuscular 32.7 Hemoglobin Concent Red Cell 15.2 H Distribution Width Platelet Count 333 Mean Platelet Volume 11.4 H Immature 4.600 H Granulocytes % Neutrophils % 72.7 Lymphocytes % 10.7 L Monocytes % 9.6 Eosinophils % 1.9 Basophils % 0.5 Nucleated Red Blood 0.0 Cells % Immature 0.600 H Granulocytes # Neutrophils # 9.5 H Lymphocytes # 1.4 Monocytes # 1.3 H Eosinophils # 0.3 Basophils # 0.1 Nucleated Red Blood 0.0 Cells # Sodium Level 147 H Potassium Level 4.2 Chloride Level 119 H Carbon Dioxide Level 23 Anion Gap 5 Blood Urea Nitrogen 38 #H Creatinine 0.88 Glucose Level 148 Calcium Level 7.4 L Phosphorus Level 2.2 L Magnesium Level 1.7 Albumin 2.3 L Test 04/25/18 05:34 04/25/18 08:41 04/25/18 10:06 04/25/18 13:00 Bedside Glucose 162 169 140 191 Consultation Date/Type/Reason Admit Date/Time Apr 13, 2018 at 18:12 Initial Consult Date Type of Consult Renal Requesting Provider: ROBERT JACKSON 24 HR Interval Summary Free Text/Dictation Agitated, restrained, pulled out NGT Constitutional: requiring O2 Exam/Review of Systems Vital Signs Vitals Vital Signs Date Temp Pulse Resp B/P (MAP) Pulse Ox O2 O2 Flow FiO2 Time Delivery Rate 04/25/18 98.5 82 18 122/64 97 Nasal 15:20 (83) Cannula 04/25/18 2.0 14:18 04/25/18 28 05:00 Intake and Output 04/24/18 04/24/18 04/25/18 1515:00 23:00 07:00 IntakeIntake Total 1200 ml 1760 ml OutputOutput Total 850 ml 1350 ml BalanceBalance 350 ml 410 ml Exam Constitutional: distress; No frail Neck: No jvd Respiratory: No diminished breath sounds, No labored breathing Cardiovascular: No edema Gastrointestinal: soft Neurological: other (agitated) Skin: nl turgor; No diaphoresis Medications Medications Current Medications IV Flush (NS 3 ml) 3 ml PER PROTOCOL IV ; Start 04/13/18 at 18:30 Ondansetron HCl (Zofran Inj) 4 mg Q6H PRN IV NAUSEA AND/OR VOMITING; Start 04/13/18 at 18:30 Acetaminophen (Tylenol Supp) 650 mg Q6H PRN IN PAIN LEVEL 1-3 OR FEVER; Start 04/13/18 at 18:30 Pantoprazole (Protonix Iv) 40 mg DAILY@06 IV Last administered on 04/25/18at 05:36; Admin Dose 40 MG; Start 04/14/18 at 06:00 Heparin Sodium (Porcine) (Heparin (5000 Units/1ml)) 5,000 unit BID SC ; Start 04/13/18 at 21:00; Status Hold Hydralazine HCl (Apresoline) 10 mg Q4H PRN IV SBP >170; Start 04/13/18 at 19:00 Miscellaneous Information 1 ea NOTE XX ; Start 04/13/18 at 19:30 Glucose (Glutose) 15 gm Q15M PRN PO DECREASED GLUCOSE; Start 04/13/18 at 19:30 Glucose (Glutose) 22.5 gm Q15M PRN PO DECREASED GLUCOSE; Start 04/13/18 at 19:30 Dextrose (D50w Syringe) 25 ml Q15M PRN IV DECREASED GLUCOSE; Start 04/13/18 at 19:30 Dextrose (D50w Syringe) 50 ml Q15M PRN IV DECREASED GLUCOSE; Start 04/13/18 at 19:30 Glucagon (Glucagen) 1 mg Q15M PRN IM DECREASED GLUCOSE; Start 04/13/18 at 19:30 Glucose (Glutose) 15 gm Q15M PRN BUCCAL DECREASED GLUCOSE; Start 04/13/18 at 19:30 Insulin Glargine (Lantus) 16 units DAILY@0800 SC Last administered on 04/25/18 10:11; Admin Dose 16 UNITS; Start 04/16/18 at 08:00 Collagenase (Santyl) 1 applic DAILY TOP Last administered on 04/25/18 08:42; Admin Dose 1 APPLIC; Start 04/15/18 at 11:00 Albuterol/ Ipratropium (Duoneb) 3 ml Q6HWA RESP THERAPY HHN Last administered on 04/25/18 14:15; Admin Dose 3 ML; Start 04/16/18 at 14:00 Albuterol/ Ipratropium (Duoneb) 3 ml Q2H RESP THERAPY PRN HHN shortness of breath Last administered on 04/21/18 05:48; Admin Dose 3 ML; Start 04/16/18 at 10:00 Haloperidol (Haldol) 5 mg Q12H PRN IM agitation Last administered on 04/25/18 00:35; Admin Dose 5 MG; Start 04/17/18 at 09:30 Insulin Glargine (Lantus) 15 units DAILY@2000 SC Last administered on 04/24/18 20:28; Admin Dose 15 UNITS; Start 04/20/18 at 20:00 Meropenem/Sodium Chloride 50 ml @ 100 mls/hr Q12 IVPB Last administered on 04/25/18 08:42; Admin Dose 100 MLS/HR; Start 04/21/18 at 13:00 Vancomycin HCl (Vanco Iv Per Pharmacy) VANCOMYCIN PER PHARMACY PER PROTOCOL XX ; Start 04/21/18 at 12:30 Amiodarone HCl (Cordarone) 100 mg QHS PO Last administered on 04/24/18 20:07; Admin Dose 100 MG; Start 04/21/18 at 21:00 Amiodarone HCl (Cordarone) 200 mg QAM PO Last administered on 04/25/18 08:42; Admin Dose 200 MG; Start 04/22/18 at 09:00 Memantine (Namenda) 5 mg BID PO Last administered on 04/25/18 08:42; Admin Dose 5 MG; Start 04/21/18 at 21:00 Aspirin (Aspirin) 81 mg DAILY PO Last administered on 04/25/18at 08:42; Admin Dose 81 MG; Start 04/22/18 at 09:00 Vancomycin/Sodium Chloride 250 ml @ 125 mls/hr Q48H IVPB Last administered on 04/24/18at 14:18; Admin Dose 125 MLS/HR; Start 04/24/18 at 15:00 Insulin Aspart (Novolog Insulin Pen) (Adult SC Insulin - Moder... Q6 SC Last administered on 04/25/18at 13:03; Admin Dose 4 UNIT; Start 04/23/18 at 00:00 Miscellaneous Information (*Rx Drug Level Order Reminder*) 1 ONCE ONCE XX ; Start 04/26/18 at 14:00; Stop 04/26/18 at 14:01 Hydromorphone HCl (Dilaudid) 1 mg Q4H PRN IV SEVERE PAIN LEVEL 7-10 Last administered on 04/25/18at 14:34; Admin Dose 1 MG; Start 04/25/18 at 14:30 Valproate Sodium (Depakene Liquid Cup) 250 mg QHS PO ; Start 04/25/18 at 21:00 Valproate Sodium (Depakene Liquid Cup) 125 mg AM PO ; Start 04/26/18 at 09:00 Quetiapine Fumarate (Seroquel) 25 mg QHS NGT ; Start 04/25/18 at 21:00 Risperidone (Risperdal Liq) 1 mg BID NGT ; Start 04/25/18 at 15:30 MEETA SPENCER MD Apr 25, 2018 16:19
[2018-04-25] MEDS ORDERED: QUETIAPINE 25 MG TAB NGT SCH (21:00)
[2018-04-25] MEDS ORDERED: VALPROIC ACID LIQUID CUP 250 MG/5 ML CUP PO SCH (21:00)
[2018-04-26] VITALS (14 sets, daily range): BP systolic 116–136; BP diastolic 58–66; PULSE 81–88; RESP 18–22
[2018-04-26] MEDS: PANTOPRAZOLE 40 MG INJ IV SCH (05:46)
[2018-04-26] MEDS: INSULIN ASPART [NOVOLOG] 3 ML PEN SC SCH ×3 (05:56→17:31)
--- NOTE | 2018-04-26 08:10 | PN ---
Date/Time of Note Date/Time of Note DATE: 04/26/18 TIME: 08:10 Assessment/Plan VTE Prophylaxis Risk score (from Nsg)>0 risk: 8 SCD applied (from Nsg): Yes Pharmacological prophylaxis: heparin Lines/Catheters IV Catheter Type (from Nrsg): Mid Line Urinary Cath still in place: Yes Reason Cath still needed: urinary retention Assessment/Plan Assessment/Plan 1. Acute toxic encephalopathy- resolved - Patient appears at baseline per care home. unable to care for self or make needs known - Neurology consultation appreciated and CT results noted 2. Psychosis - per nursing records, patient has a history of psychosis and on valproic acid - more calm with risperidone 3. Sepsis secondary to UTI and bacteremia- improving - Blood and urine cultures noted - ID on board for antibiotics management and recommending continue current treatment - ECHO noted - LA normalized 4. Prerenal azotemia - Renal function normalized and back to baseline - Nephrology consultation appreciated. recommending continue current fluids - Renal US results noted 5. h/o DM - last A1c 02/2018 was 6.4 - ISS and accuchecks 6. afib - continue on home dose of Amiodarone 7. HTN - stable off home meds - Lasix, hctz, and lisinopril on hold - PRN hydralazine if needed 8. 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 BPH - on terazosin 10. psychosis - on valproic acid 11. Disposition - Patient accepted to [facility] and medically stable for transfer Result Diagram: 04/26/18 0537 04/26/18 0537 Results 24hrs Laboratory Tests Test 04/25/18 08:41 04/25/18 10:06 04/25/18 13:00 04/25/18 17:49 Bedside Glucose 169 140 191 115 Test 04/25/18 21:05 04/25/18 23:25 04/26/18 05:37 04/26/18 05:52 Bedside Glucose 112 135 152 White Blood Count 11.9 H Red Blood Count 3.00 L Hemoglobin 8.9 L Hematocrit 28.2 L Mean Corpuscular 94.0 Volume Mean Corpuscular 29.7 Hemoglobin Mean Corpuscular 31.6 L Hemoglobin Concent Red Cell 15.0 H Distribution Width Platelet Count 342 Mean Platelet Volume 11.1 H Immature 5.100 H Granulocytes % Neutrophils % 72.4 Lymphocytes % 11.0 L Monocytes % 8.7 Eosinophils % 2.4 Basophils % 0.4 Nucleated Red Blood 0.0 Cells % Immature 0.600 H Granulocytes # Neutrophils # 8.6 H Lymphocytes # 1.3 Monocytes # 1.0 H Eosinophils # 0.3 Basophils # 0.1 Nucleated Red Blood 0.0 Cells # Sodium Level 146 H Potassium Level 4.2 Chloride Level 118 H Carbon Dioxide Level 24 Anion Gap 4 L Blood Urea Nitrogen 24 #H Creatinine 0.80 Glucose Level 137 Calcium Level 7.6 L Phosphorus Level 2.3 L Magnesium Level 1.6 L Albumin 2.0 L Subjective 24 Hr Interval Summary Free Text/Dictation Patient more calm this am but still pulling at lines and tubes. No acute overnight events. Exam/Review of Systems Vital Signs Vitals Vital Signs Date Temp Pulse Resp B/P (MAP) Pulse Ox O2 O2 Flow FiO2 Time Delivery Rate 04/26/18 99.8 83 19 116/58 99 07:49 (77) 04/26/18 2.0 04:53 04/25/18 Nasal 22:00 Cannula 04/25/18 28 05:00 Intake and Output 04/25/18 04/25/18 04/26/18 1515:00 23:00 07:00 IntakeIntake Total 50 ml 785 ml 650 ml OutputOutput Total 850 ml 650 ml BalanceBalance 50 ml -65 ml 0 ml Exam General: Patient is laying in bed, no acute distress. occasional moan but not screaming this am Mentation: Patient is not alert and oriented. no following commands. Neck: Supple Respiratory: Clear to auscultation bilaterally, diminished. no wheezing or rhonchi Cardiovascular: regular rate and rhythm, no obvious murmurs Gastrointestinal: soft, non-tender to palpation, nondistended, bowel sounds heard. Neurological: Moves all extremities spontaneously, but only to noxious stimuli. moans but does not follow commands Skin: No new skin lesions, pressure ulcers Medications Medications Current Medications IV Flush (NS 3 ml) 3 ml PER PROTOCOL IV ; Start 04/13/18 at 18:30 Ondansetron HCl (Zofran Inj) 4 mg Q6H PRN IV NAUSEA AND/OR VOMITING; Start 04/13/18 at 18:30 Acetaminophen (Tylenol Supp) 650 mg Q6H PRN [place] PAIN LEVEL 1-3 OR FEVER; Start 04/13/18 at 18:30 Pantoprazole (Protonix Iv) 40 mg DAILY@06 IV Last administered on 04/26/18 05:46; Admin Dose 40 MG; Start 04/14/18 at 06:00 Heparin Sodium (Porcine) (Heparin (5000 Units/1ml)) 5,000 unit BID SC ; Start 04/13/18 at 21:00; Status Hold Hydralazine HCl (Apresoline) 10 mg Q4H PRN IV SBP >170; Start 04/13/18 at 19:00 Miscellaneous Information 1 ea NOTE XX ; Start 04/13/18 at 19:30 Glucose (Glutose) 15 gm Q15M PRN PO DECREASED GLUCOSE; Start 04/13/18 at 19:30 Glucose (Glutose) 22.5 gm Q15M PRN PO DECREASED GLUCOSE; Start 04/13/18 at 19:30 Dextrose (D50w Syringe) 25 ml Q15M PRN IV DECREASED GLUCOSE; Start 04/13/18 at 19:30 Dextrose (D50w Syringe) 50 ml Q15M PRN IV DECREASED GLUCOSE; Start 04/13/18 at 19:30 Glucagon (Glucagen) 1 mg Q15M PRN IM DECREASED GLUCOSE; Start 04/13/18 at 19:30 Glucose (Glutose) 15 gm Q15M PRN BUCCAL DECREASED GLUCOSE; Start 04/13/18 at 19:30 Insulin Glargine (Lantus) 16 units DAILY@0800 SC Last administered on 04/25/18 10:11; Admin Dose 16 UNITS; Start 04/16/18 at 08:00 Collagenase (Santyl) 1 applic DAILY TOP Last administered on 04/25/18 08:42; Admin Dose 1 APPLIC; Start 04/15/18 at 11:00 Albuterol/ Ipratropium (Duoneb) 3 ml Q6HWA RESP THERAPY HHN Last administered on 04/25/18 20:22; Admin Dose 3 ML; Start 04/16/18 at 14:00 Albuterol/ Ipratropium (Duoneb) 3 ml Q2H RESP THERAPY PRN HHN shortness of breath Last administered on 04/21/18 05:48; Admin Dose 3 ML; Start 04/16/18 at 10:00 Haloperidol (Haldol) 5 mg Q12H PRN IM agitation Last administered on 04/25/18 00:35; Admin Dose 5 MG; Start 04/17/18 at 09:30 Insulin Glargine (Lantus) 15 units DAILY@2000 SC Last administered on 04/25/18 21:21; Admin Dose 15 UNITS; Start 04/20/18 at 20:00 Meropenem/Sodium Chloride 50 ml @ 100 mls/hr Q12 IVPB Last administered on 04/25/18 21:08; Admin Dose 100 MLS/HR; Start 04/21/18 at 13:00 Vancomycin HCl (Vanco Iv Per Pharmacy) VANCOMYCIN PER PHARMACY PER PROTOCOL XX ; Start 04/21/18 at 12:30 Amiodarone HCl (Cordarone) 100 mg QHS PO Last administered on 04/25/18 21:07; Admin Dose 100 MG; Start 04/21/18 at 21:00 Amiodarone HCl (Cordarone) 200 mg QAM PO Last administered on 04/25/18 08:42; Admin Dose 200 MG; Start 04/22/18 at 09:00 Memantine (Namenda) 5 mg BID PO Last administered on 04/25/18 21:07; Admin Dose 5 MG; Start 04/21/18 at 21:00 Aspirin (Aspirin) 81 mg DAILY PO Last administered on 04/25/18 08:42; Admin Dose 81 MG; Start 04/22/18 at 09:00 Vancomycin/Sodium Chloride 250 ml @ 125 mls/hr Q48H IVPB Last administered on 04/24/18 14:18; Admin Dose 125 MLS/HR; Start 04/24/18 at 15:00 Insulin Aspart (Novolog Insulin Pen) (Adult SC Insulin - Moder... Q6 SC Last administered on 04/26/18 05:56; Admin Dose 2 UNIT; Start 04/23/18 at 00:00 Miscellaneous Information (*Rx Drug Level Order Reminder*) 1 ONCE ONCE XX ; Start 04/26/18 at 14:00; Stop 04/26/18 at 14:01 Hydromorphone HCl (Dilaudid) 1 mg Q4H PRN IV SEVERE PAIN LEVEL 7-10 Last administered on 04/25/18 14:34; Admin Dose 1 MG; Start 04/25/18 at 14:30 Valproate Sodium (Depakene Liquid Cup) 250 mg QHS PO Last administered on 04/25/18at 21:06; Admin Dose 250 MG; Start 04/25/18 at 21:00 Valproate Sodium (Depakene Liquid Cup) 125 mg AM PO ; Start 04/26/18 at 09:00 Quetiapine Fumarate (Seroquel) 25 mg QHS NGT Last administered on 04/25/18at 21:06; Admin Dose 25 MG; Start 04/25/18 at 21:00 Risperidone (Risperdal Liq) 1 mg BID NGT Last administered on 04/25/18at 21:07; Admin Dose 1 MG; Start 04/25/18 at 15:30 JOHN CORRAL MD Apr 26, 2018 08:10
[2018-04-26] MEDS: ALBUTEROL/IPRATROPIUM (NEB) 3 ML AMP HHN SCH ×2 (08:20→13:37)
[2018-04-26] MEDS: MEROPENEM 500MG/50 ML (PMX) 50 ML IVPB SCH (09:00)
[2018-04-26] MEDS: COLLAGENASE 5 GM (UD JAR) TOP SCH (09:00)
[2018-04-26] MEDS ORDERED: VALPROIC ACID LIQUID CUP 250 MG/5 ML CUP PO SCH (09:00)
[2018-04-26] MEDS: ASPIRIN 81 MG TAB PO SCH (09:01)
[2018-04-26] MEDS: RISPERIDONE (1 MG/ML PO SYG) NGT SCH (09:01)
[2018-04-26] MEDS: MEMANTINE 5 MG TAB PO SCH (09:01)
[2018-04-26] MEDS: BALSAM PERU/CASTOR OIL 60 GM TUBE TOP SCH (09:02)
[2018-04-26] MEDS: AMIODARONE 200 MG TAB PO SCH (09:02)
[2018-04-26] MEDS: INSULIN GLARGINE [LANTus] (100 UNITS/ML) SYG SC SCH (09:19)
--- NOTE | 2018-04-26 15:38 | CONS ---
Date/Time of Note Date/Time of Note DATE: 04/26/18 TIME: 15:37 Assessment/Plan Assessment/Plan Hospital Course No acute changes patient looks comfortable no fevers overnight WBC today 11.9 neutrophils 72.4 BUN [address] of the abdomen and pelvis revealed inflammatory changes in the distal colon suggestive for a colitis either infectious or inflammatory with the presence of colonic ileus mild small bowel ileus without obstruction scaring and emphysema is seen in the lower lungs with airways marked mucus plugging prostatic enlargement with findings of likely chronic outflow obstructive changes of the bladder Antimicrobials: Vancomycin meropenem Microbiology: Urine culture negative stool for C. difficile negative. Blood culture on admission grew alpha hemolytic strep and coag negative staph species, urine culture grew E. coli Chest x-ray this morning revealed nasogastric tube coiled within the esophagus Indwelling: NG tube, Dia Physical examination: Well-developed chronically ill-appearing elderly man who is in no distress. Head atraumatic normocephalic sclera nonicteric vehicle m ucosa dry neck is supple chest rise symmetrical breath sounds diminished bases. Heart: S1-S2. Abdomen soft bowel sounds present extremities without cyanosis, trace edema Assessment: 1. Severe sepsis 2. Probable acute aspiration secondary to NG tube dislodgment==> now in position 3. Colitis with stool came back negative for C. difficile 4. Ileus 5. Status post polymicrobial bacteremia. 2D echo revealed no evidence for vegetations 6. Status post E. coli UTI 7. Acute encephalopathy 8. BPH 9. Hypertension Plan: Clinically unchanged, WBC continues to decrease, continue antibiotics, as piration precautions Result Diagram: 04/26/18 0537 04/26/18 0537 Results 24hrs Laboratory Tests Test 04/25/18 17:49 04/25/18 21:05 04/25/18 23:25 04/26/18 05:37 Bedside Glucose 115 112 135 White Blood Count 11.9 H Red Blood Count 3.00 L Hemoglobin 8.9 L Hematocrit 28.2 L Mean Corpuscular 94.0 Volume Mean Corpuscular 29.7 Hemoglobin Mean Corpuscular 31.6 L Hemoglobin Concent Red Cell 15.0 H Distribution Width Platelet Count 342 Mean Platelet Volume 11.1 H Immature 5.100 H Granulocytes % Neutrophils % 72.4 Segmented 66 Neutrophils % (Manual) Band Neutrophils % 8 H (Manual) Lymphocytes % 11.0 L Lymphocytes % 18 (Manual) Reactive Lymphocytes 1 H % (Manual) Monocytes % 8.7 Monocytes % (Manual) 2 Eosinophils % 2.4 Basophils % 0.4 Myelocytes % 5 H (Manual) Nucleated Red Blood 0.0 Cells % Immature 0.600 H Granulocytes # Neutrophils # 8.6 H Neutrophils # 8.0 H (Manual) Band Neutrophils # 0.9 H Lymphocytes (Manual) 2.1 Lymphocytes # 1.3 Reactive Lymphocytes 0.1 H # Monocytes # 1.0 H Monocytes # (Manual) 0.2 L Eosinophils # 0.3 Basophils # 0.1 Myelocytes # 0.5 H Nucleated Red Blood 0.0 Cells # Platelet Estimate NORMAL Polychromasia 2+ Anisocytosis 1+ Microcytosis 1+ Sodium Level 146 H Potassium Level 4.2 Chloride Level 118 H Carbon Dioxide Level 24 Anion Gap 4 L Blood Urea Nitrogen 24 #H Creatinine 0.80 Glucose Level 137 Calcium Level 7.6 L Phosphorus Level 2.3 L Magnesium Level 1.6 L Albumin 2.0 L Test 04/26/18 05:52 04/26/18 09:00 04/26/18 12:43 Bedside Glucose 152 143 168 Consultation Date/Type/Reason Admit Date/Time Apr 13, 2018 at 18:12 Initial Consult Date Type of Consult ID Requesting Provider: ROBERT JACKSON Exam/Review of Systems Vital Signs Vitals Vital Signs Date Temp Pulse Resp B/P (MAP) Pulse Ox O2 O2 Flow FiO2 Time Delivery Rate 04/26/18 98.0 83 19 122/64 95 14:00 (83) 04/26/18 2.0 13:39 04/26/18 Nasal 13:38 Cannula 04/25/18 28 05:00 Intake and Output 04/25/18 04/25/18 04/26/18 1414:59 22:59 06:59 IntakeIntake Total 50 ml 785 ml 650 ml OutputOutput Total 850 ml 650 ml BalanceBalance 50 ml -65 ml 0 ml Medications Medications Current Medications IV Flush (NS 3 ml) 3 ml PER PROTOCOL IV ; Start 04/13/18 at 18:30 Ondansetron HCl (Zofran Inj) 4 mg Q6H PRN IV NAUSEA AND/OR VOMITING; Start 04/13/18 at 18:30 Acetaminophen (Tylenol Supp) 650 mg Q6H PRN [place] PAIN LEVEL 1-3 OR FEVER; Start 04/13/18 at 18:30 Pantoprazole (Protonix Iv) 40 mg DAILY@06 IV Last administered on 04/26/18at 05:46; Admin Dose 40 MG; Start 04/14/18 at 06:00 Heparin Sodium (Porcine) (Heparin (5000 Units/1ml)) 5,000 unit BID SC ; Start 04/13/18 at 21:00; Status Hold Hydralazine HCl (Apresoline) 10 mg Q4H PRN IV SBP >170; Start 04/13/18 at 19:00 Miscellaneous Information 1 ea NOTE XX ; Start 04/13/18 at 19:30 Glucose (Glutose) 15 gm Q15M PRN PO DECREASED GLUCOSE; Start 04/13/18 at 19:30 Glucose (Glutose) 22.5 gm Q15M PRN PO DECREASED GLUCOSE; Start 04/13/18 at 19:30 Dextrose (D50w Syringe) 25 ml Q15M PRN IV DECREASED GLUCOSE; Start 04/13/18 at 19:30 Dextrose (D50w Syringe) 50 ml Q15M PRN IV DECREASED GLUCOSE; Start 04/13/18 at 19:30 Glucagon (Glucagen) 1 mg Q15M PRN IM DECREASED GLUCOSE; Start 04/13/18 at 19:30 Glucose (Glutose) 15 gm Q15M PRN BUCCAL DECREASED GLUCOSE; Start 04/13/18 at 19:30 Insulin Glargine (Lantus) 16 units DAILY@0800 SC Last administered on 04/26/18at 09:19; Admin Dose 16 UNITS; Start 04/16/18 at 08:00 Collagenase (Santyl) 1 applic DAILY TOP Last administered on 04/26/18at 09:00; Admin Dose 1 APPLIC; Start 04/15/18 at 11:00 Albuterol/ Ipratropium (Duoneb) 3 ml Q6HWA RESP THERAPY HHN Last administered on 04/26/18at 13:37; Admin Dose 3 ML; Start 04/16/18 at 14:00 Albuterol/ Ipratropium (Duoneb) 3 ml Q2H RESP THERAPY PRN HHN shortness of jerome ath Last administered on 04/21/18 05:48; Admin Dose 3 ML; Start 04/16/18 at 10:00 Haloperidol (Haldol) 5 mg Q12H PRN IM agitation Last administered on 04/25/18 00:35; Admin Dose 5 MG; Start 04/17/18 at 09:30 Insulin Glargine (Lantus) 15 units DAILY@2000 SC Last administered on 04/25/18 21:21; Admin Dose 15 UNITS; Start 04/20/18 at 20:00 Meropenem/Sodium Chloride 50 ml @ 100 mls/hr Q12 IVPB Last administered on 04/26/18 09:00; Admin Dose 100 MLS/HR; Start 04/21/18 at 13:00 Vancomycin HCl (Vanco Iv Per Pharmacy) VANCOMYCIN PER PHARMACY PER PROTOCOL XX ; Start 04/21/18 at 12:30 Amiodarone HCl (Cordarone) 100 mg QHS PO Last administered on 04/25/18 21:07; Admin Dose 100 MG; Start 04/21/18 at 21:00 Amiodarone HCl (Cordarone) 200 mg QAM PO Last administered on 04/26/18 09:02; Admin Dose 200 MG; Start 04/22/18 at 09:00 Memantine (Namenda) 5 mg BID PO Last administered on 04/26/18 09:01; Admin Dose 5 MG; Start 04/21/18 at 21:00 Aspirin (Aspirin) 81 mg DAILY PO Last administered on 04/26/18 09:01; Admin Dose 81 MG; Start 04/22/18 at 09:00 Vancomycin/Sodium Chloride 250 ml @ 125 mls/hr Q48H IVPB Last administered on 04/24/18 14:18; Admin Dose 125 MLS/HR; Start 04/24/18 at 15:00 Insulin Aspart (Novolog Insulin Pen) (Adult SC Insulin - Moder... Q6 SC Last administered on 04/26/18 12:47; Admin Dose 2 UNIT; Start 04/23/18 at 00:00 Hydromorphone HCl (Dilaudid) 1 mg Q4H PRN IV SEVERE PAIN LEVEL 7-10 Last administered on 04/25/18 14:34; Admin Dose 1 MG; Start 04/25/18 at 14:30 Valproate Sodium (Depakene Liquid Cup) 250 mg QHS PO Last administered on 04/25/18 21:06; Admin Dose 250 MG; Start 04/25/18 at 21:00 Valproate Sodium (Depakene Liquid Cup) 125 mg AM PO Last administered on 04/26/18at 09:01; Admin Dose 125 MG; Start 04/26/18 at 09:00 Quetiapine Fumarate (Seroquel) 25 mg QHS NGT Last administered on 04/25/18at 21:06; Admin Dose 25 MG; Start 04/25/18 at 21:00 Risperidone (Risperdal Liq) 1 mg BID NGT Last administered on 04/26/18at 09:01; Admin Dose 1 MG; Start 04/25/18 at 15:30 JAMIE WORRELL NP Apr 26, 2018 15:38
[2018-04-26] MEDS: VANCOMYCIN 750 MG (PMX) 250 ML IVPB SCH (15:47)
--- NOTE | 2018-04-26 16:05 | CONS ---
Assessment/Plan Assessment/Plan Hospital Course A: 87 yo M with multiple comorbidities who p/w ams, for which neurology is consulted. UA +++, blood cx + LOVE + This is most clinically consistent with an acute and multifactorial toxic- metabolic on chronic encephalopathy. CTH is reassuringly without acute intracranial pathology. P: Ok to defer additional neuroimaging for now Other medical management and supportive care per primary [facility] as able Limit sedating medications where possible PT/OT/ST as tolerated Will follow clinically Result Diagram: 04/26/1837 04/26/1837 Results 24hrs Laboratory Tests Test 04/25/18 17:49 04/25/18 21:05 04/25/18 23:25 04/26/18 05:37 Bedside Glucose 115 112 135 White Blood Count 11.9 H Red Blood Count 3.00 L Hemoglobin 8.9 L Hematocrit 28.2 L Mean Corpuscular 94.0 Volume Mean Corpuscular 29.7 Hemoglobin Mean Corpuscular 31.6 L Hemoglobin Concent Red Cell 15.0 H Distribution Width Platelet Count 342 Mean Platelet Volume 11.1 H Immature 5.100 H Granulocytes % Neutrophils % 72.4 Segmented 66 Neutrophils % (Manual) Band Neutrophils % 8 H (Manual) Lymphocytes % 11.0 L Lymphocytes % 18 (Manual) Reactive Lymphocytes 1 H % (Manual) Monocytes % 8.7 Monocytes % (Manual) 2 Eosinophils % 2.4 Basophils % 0.4 Myelocytes % 5 H (Manual) Nucleated Red Blood 0.0 Cells % Immature 0.600 H Granulocytes # Neutrophils # 8.6 H Neutrophils # 8.0 H (Manual) Band Neutrophils # 0.9 H Lymphocytes (Manual) 2.1 Lymphocytes # 1.3 Reactive Lymphocytes 0.1 H # Monocytes # 1.0 H Monocytes # (Manual) 0.2 L Eosinophils # 0.3 Basophils # 0.1 Myelocytes # 0.5 H Nucleated Red Blood 0.0 Cells # Platelet Estimate NORMAL Polychromasia 2+ Anisocytosis 1+ Microcytosis 1+ Sodium Level 146 H Potassium Level 4.2 Chloride Level 118 H Carbon Dioxide Level 24 Anion Gap 4 L Blood Urea Nitrogen 24 #H Creatinine 0.80 Glucose Level 137 Calcium Level 7.6 L Phosphorus Level 2.3 L Magnesium Level 1.6 L Albumin 2.0 L Test 04/26/18 05:52 04/26/18 09:00 04/26/18 12:43 04/26/18 13:50 Bedside Glucose 152 143 168 Vancomycin Level < 5.0 L Trough Consultation Date/Type/Reason Admit Date/Time Apr 13, 2018 at 18:12 Type of Consult Neurology Reason for Consultation ams Requesting Provider: ROBERT JACKSON Date/Time of Note DATE: 04/26/18 TIME: 16:05 24 HR Interval Summary Free Text/Dictation Continues telemetry monitoring. No acute events or changes in pt condition reported. Exam Vital Signs Vitals Vital Signs Date Temp Pulse Resp B/P (MAP) Pulse Ox O2 O2 Flow FiO2 Time Delivery Rate 04/26/18 98.4 81 22 128/61 100 16:01 (83) 04/26/18 2.0 13:39 04/26/18 Nasal 13:38 Cannula 04/25/18 28 05:00 Intake and Output 04/25/18 04/25/18 04/26/18 1515:00 23:00 07:00 IntakeIntake Total 50 ml 785 ml 650 ml OutputOutput Total 850 ml 650 ml BalanceBalance 50 ml -65 ml 0 ml Exam PE: Gen Appearance: No Apparent Distress HEENT: Normocephalic Cardiovascular: Regular rate Abdomen: Soft Extremities: Dry, 2 point restraints NE: The patient was lethargic though arousable to light touch. Incomprehensibly verbal. Unable to follow any commands. Cranial nerve examination was limited by mental status. Pupils were equal and reactive to light. There was no afferent pupillary defect. Funduscopic examination was limited. Face was grossly symmetric, w/ present corneal and cough reflexes. Tone was normal. Muscle bulk was normal. I did not see fasciculations. The patient withdrew to noxious stimulation x 4. Coordination and gait testing was limited by mental status. Arm and leg reflexes were within normal limits and symmetric. Nascimento's sign was absent. Plantar responses were flexor. PEACE JUSTIN NP Apr 26, 2018 16:05
--- NOTE | 2018-04-26 17:54 | DS ---
Date/Time of Note Date/Time of Note DATE: 04/26/18 TIME: 17:54 Discharge Summary Admission/Discharge Info Admit Date/Time Apr 13, 2018 at 18:12 Discharge Date/Time 04/26/18 at 2000 Discharge Diagnosis 1. Acute toxic encephalopathy- resolved 2. Sepsis secondary to UTI and bacteremia- improving 3. Prerenal azotemia- resolved 4. Hypernatremia, hypovolemic- resolving 5. h/o DM 6. afib 7. HTN 8. Dementia/Alzheimer 9. BPH 10. psychosis Patient Condition: Stable Consults Nephrology- Dr. Nair Infectious Disease- Dr. Palomino Neurology- Dr. Ayon Palliative- Dr. Hillman Procedures PROCEDURE: CT abdomen and pelvis without contrast. CLINICAL INDICATION: Abdominal pain. TECHNIQUE: CT scan of the abdomen and pelvis without contrast was performed on a multi-slice CT scanner . Sagittal and coronal reformatted images were obtained from the axial source images. One or more of the following dose reduction techniques were used: - Automated exposure control. - Adjustment of the mA and/or kV according to patient size. - Use of iterative reconstruction technique. DICOM images are available DLP 1098.2 mGycm. CTDIvol 18.89 mGy COMPARISON: None FINDINGS: Fine detail of the soft tissues is limited secondary to the lack of IV contrast. Evaluation for enhancing lesions cannot be performed. Lower thorax: Bibasilar scarring and mild atelectasis is present. There is airways wall thickening with foci of lower lung mucus plugging. Emphysema is seen in the lower lungs as well.. Coronary artery calcifications are seen in the heart. Liver: There is uniform density of the liver with no gross focal lesion. Biliary: The gallbladder is unremarkable without surrounding inflammation. No biliary dilatation. Pancreas: Homogeneous density of the pancreas without visible focal lesion or cystic abnormality. There is no pancreatic ductal dilatation. Spleen: Unremarkable without enlargement or focal lesion. Adrenal Glands: The adrenal glands are within normal limits without mass. Urinary: The kidneys are symmetric in size bilaterally. There are no visible renal or ureteral stones. There is no hydronephrosis. There is an elevated trabecular appearance the bladder wall with bladder diverticula. Gastrointestinal: There is wall thickening and edema involving the descending and sigmoid colon with air and fluid distension along with air-fluid levels. This inflammation extends into the rectum as well. The proximal colon is distended with air and fecal material with distension. There is no obstruction. The appendix is unremarkable. Mild air-fluid levels are seen involving loops of small bowel. Lymph nodes: There are no enlarged lymph nodes. Vascular: There is aortic atherosclerosis without aneurysmal dilatation. Peritoneum/mesentery: No free fluid or free air. Reproductive organs: Prostate is moderately enlarged. Musculoskeletal: Degenerative changes are seen in the lumbar spine with no acute osseous abnormality Other: Dia catheter seen in the bladder which is partially decompressed. Gastric catheter extends into the proximal stomach. IMPRESSION: There are inflammatory changes seen involving the distal colon and this suggestive for a colitis which is either infectious or inflammatory with the presence of a colonic ileus. There is also mild small bowel ileus without obstr uction or visible appendicitis. Scarring and emphysema is seen in the lower lungs with airways mucus plugging. Atherosclerotic disease is present. No renal or ureteral calculi with no evidence of hydronephrosis. Gastric catheter extends into the proximal stomach and may be advanced for better positioning. Prostatic enlargement with findings of likely chronic outflow obstructive changes of the bladder. RPTAT: AA .Denise Monroe MD, Date Time Electronically viewed and signed by .Denise Monroe MD, MD on 04/22/2018 19:24 PROCEDURE: XR Chest. CLINICAL INDICATION: Shortness of breath, pneumonia TECHNIQUE: Single frontal radiograph of the chest. COMPARISON: CHEST 04/18/2018; GLO CHEST 02/23/2014 FINDINGS: Nasogastric tube in satisfactory position. Minimal right basilar infiltrate is unchanged. No pleural effusion. No pneumothorax. The cardiomediastinal silhouette is unremarkable. Vascular calcifications of the aorta are present compatible with atherosclerosis. IMPRESSION: Minimal right basilar infiltrate is unchanged. RPTAT: AADD .Hadley Kumar MD, Date Time Electronically viewed and signed by .Hadley Kumar MD, on 04/21/2018 17:07 PROCEDURE: CT Brain without contrast. CLINICAL INDICATION: Headache TECHNIQUE: A CT of the brain was performed on a GE Echolocationpeed 64-slice CT scanner utilizing axial imaging from the skull base through the vertex without IV contrast. Multiplanar reformatted images were made. Images were reviewed on a PACS workstation. The CTDIvol is 39 mGy and the DLP is 634 mGycm. DICOM images are available. One or more of the following dose reduction techniques were utilized: 1.) Automated exposure control 2.) Adjustment of the mA +/- kV according to patient's size 3.) Use of iterative reconstruction technique. COMPARISON: None FINDINGS: There is no intracranial hemorrhage, mass effect, or midline shift. No extra- axial fluid collection is seen. Diffuse cerebral atrophy changes are present with compensatory ventricular distension related to volume loss. The density of the brain is normal, and the moore white matter differentiation appears well- preserved. The visualized paranasal sinuses and osseous structures are grossly unremarkable. IMPRESSION: 1. diffuse cerebral atrophy 2. Negative exam for acute pathology. RPTAT: HPPP Physician Jennifer Date Time Electronically viewed and signed by Physician Jennifer on 04/18/2018 03:05 PROCEDURE: Ultrasound kidneys CLINICAL INDICATION: Renal insufficiency TECHNIQUE: Multiple sonographic images of the kidneys were obtained. The images were reviewed on a PACS workstation. COMPARISON: None FINDINGS: The left kidney measures 11.1 cm in length. A 2.0 x 1.3 x 1.6 cm cortical cyst is identified. Renal parenchyma otherwise demonstrates normal echotexture. No hydronephrosis or intrarenal calculus. There is no visible perinephric fluid. Right kidney and urinary bladder not visualized. IMPRESSION: Small cortical cyst within the otherwise unremarkable left kidney. No hydronephrosis. Right kidney and urinary bladder not visualized. RPTAT: [facility] Physician Rashad Date Time Electronically viewed and signed by Physician Rashad on 04/14/2018 09:13 PROCEDURE: XR Chest. CLINICAL INDICATION: Pain TECHNIQUE: Frontal chest x-ray was obtained. COMPARISON: Chest x-ray February 23, 2014 FINDINGS: The heart is not enlarged. Mediastinum is not widened. Calcified plaque is seen in the wall of the aorta. No hilar masses seen. Lungs are clear of any infiltrates. There is no effusion or pneumothorax. The osseous structures appear normal. IMPRESSION: No evidence for active cardiopulmonary disease. .Ricardo Rodriguez MD, MD Date Time Electronically viewed and signed by .Ricardo Rodriguez MD, MD on 04/13/2018 15:51 Hx of Present Illness 87 yo M PMH COPD, Alzheimerz, atrial fibrillation, BPH, diabetes mellitus, dementia, psychosis, and HTN presented to ED from [facility] for altered mental status. Patient is a poor historian but has baseline dementia and usuall y is not able to voice his needs. Per EMS, he is at his baseline. History obtained from ED physician as well as NH charge. Patient is a Full Code as well. Patient found with dehydration at time of presentation and foul smelling urine that appears purulent yellow/green. Hospital Course Patient wad admitted for acute toxic encephalopathy and sepsis secondary to UTI and bacteremia. Patient was started on IVF, IV antibiotics, and pancultures were obtained. ID was consulted for antibiotic management. Nephrology was consulted as well for evaluation and recommendations of acute renal failure given baseline Cr was 1 and admission Cr was 5.4, Patient was found to be severely dehydrated with sodium level of 154. Patients diuretics were held but all other medications were continued. Given patients persistent encephalopathy, patient was evaluated by Neurology and imaging studies were performed with finding negative for acute abnormalities. Patients renal function improved du ring course of hospitalization and sodium normalized. Patient still remained encephalopathic and would moan or use profanities when touched or in pain. Per residential, patients baseline was saying a few words in south su[place]ese and opening mouth allowing to be fed. Patient was evaluated by speech therapy who recommended NG tube and continued trial feedings given high risk for aspiration. Patients overall condition improved however, patient was still unable to tolerate PO intake. Patient was conserved given he had no family and social sciences lecturer discussed request to change patient to DNR/DNI given poor overall prognosis in setting of severe dementia, chronic encephalopathy, and chronic bedbound status. Patients renal function returned to baseline and sodium cheo lized. He was still exhibiting psychosis which was chronic and medication adjustments were made. Patient still required continued physical therapy and speech therapy. He was evaluated by [facility] and transferred to LT[facility] in stable condition. Antibiotics were continued and to be managed by Infectious disease. Home Meds Reported Medications Calcium Carbonate/Vitamin D3 (OYSTER SHELL 500 MG + VIT D TB) 1 Each Tablet, 1 EACH PO Q5PM, TAB 04/13/18 Memantine* (Namenda*) 5 Mg Tablet, 5 MG PO BID, #60 TAB 04/13/18 Furosemide* (Furosemide*) 20 Mg Tablet, 10 MG PO Q9AM, #60 TAB 04/13/18 Terazosin Hcl* (Hytrin*) 1 Mg Cap, 1 MG PO HS, CAP 04/13/18 Saccharomyces Boulardii* (Florastor*) 250 Mg Cap, 250 MG PO BID, CAP 04/13/18 Cranberry Extract (Cranberry) 425 Mg Capsule, 425 MG PO Q9AM, CAP 04/13/18 Aspirin* (Aspirin* EC) 81 Mg Tablet.dr, 81 MG PO DAILY, TAB 04/13/18 Amiodarone Hcl* (Amiodarone Hcl*) 200 Mg Tablet, 200 MG PO QAM, #30 TAB HOLD IF HR<60 04/13/18 Lisinopril* (Lisinopril*) 40 Mg Tablet, 40 MG PO DAILY, #30 TAB HOLD IF SBP<120 AND HR<60 04/13/18 Hydrochlorothiazide* (Hydrochlorothiazide*) 50 Mg Tab, 50 MG PO DAILY, #30 TAB 04/13/18 Valproic Acid* (Valproic Acid* Liq) 250 Mg/5 Ml Syrup, 5 ML PO Q9PM, ML 04/13/18 Valproic Acid* (Valproic Acid* Liq) 250 Mg/5 Ml Syrup, 2.5 ML PO Q9AM, ML 04/13/18 Nitroglycerin* (Nitroglycerin* SL) 0.4 Mg Tab.subl, 0.4 MG SL Q5MIN PRN for CHEST PAIN, BOTTLE 04/13/18 Multivitamin with Minerals (Multivitamins with Minerals) 1 Each Tablet, 1 EACH PO Q9AM, TAB 04/13/18 Amlodipine Besylate* (Norvasc*) 5 Mg Tablet, 5 MG PO Q9AM, TAB HOLD IF SBP<118 04/13/18 Amiodarone Hcl* (Amiodarone Hcl*) 100 Mg Tablet, 100 MG PO QHS, #30 TAB HOLD IF HR<60 04/13/18 Na Phos,M-B/Na Phos,Di-Ba (Fleet Enema Extra) 230 Ml Enema, 230 ML RC NEEDED, ENEMA 04/13/18 Acetaminophen* (Tylenol*) 325 Mg Tablet, 650 MG PO Q4H PRN for MILD PAIN LEVEL 1-3, TAB AND FEVER>100F 04/13/18 Magnesium Hydroxide* (Milk Of Magnesia*) 400 Mg/5 Ml Oral.susp, 30 ML PO QHS PRN for NEEDED, ML 04/13/18 Bisacodyl* (Bisacodyl*) 5 Mg Tablet.dr, 10 MG PO DAILY PRN for CONSTIPATION, TAB 04/13/18 Follow-up Plan 1. Continue all current care Primary Care Provider Not On Staff Doctor Time spent on discharge: > 30 minutes Pending Labs Laboratory Tests Test 04/25/18 21:05 04/25/18 23:25 04/26/18 05:37 04/26/18 05:52 Bedside 112 135 152 Glucose mg/dL (70-220) mg/dL (70-220) mg/dL (70-220) White Blood 11.9 Count 10^3/ul (4.8-1 0.8) Red Blood 3.00 Count 10^6/ul (4.70- 6.10) Hemoglobin 8.9 g/dl (14.0-18. 0) Hematocrit 28.2 % (42.0-52.0) Mean 94.0 Corpuscular fl (82.0-101.0 Volume ) Mean 29.7 Corpuscular pg (29.0-33.0) Hemoglobin Mean 31.6 Corpuscular g/dl (32.0-37. Hemoglobin Conc 0) ent Red Cell 15.0 Distribution % (11.5-14.5) Width Platelet Count 342 10^3/UL (140-4 15) Mean Platelet 11.1 Volume fl (7.4-10.4) Immature 5.100 Granulocytes % % (0.001-0.429 ) Neutrophils % 72.4 % (39.0-77.0) Segmented 66 % (39-77) Neutrophils % (Manual) Band 8 % (0-4) Neutrophils % (Manual) Lymphocytes % 11.0 % (15.0-51.0) Lymphocytes % 18 % (15-51) (Manual) Reactive 1 % (0-0) Lymphocytes % (Manual) Monocytes % 8.7 % (0.0-11.0) Monocytes % 2 % (0-11) (Manual) Eosinophils % 2.4 % (0.0-7.0) Basophils % 0.4 % (0.0-2.0) Myelocytes % 5 % (0-0) (Manual) Nucleated Red 0.0 Blood Cells % /100WBC (0.0-0 .0) Immature 0.600 Granulocytes # 10^3/ul (0.0-0 .031) Neutrophils # 8.6 10^3/ul (1.6-7 .5) Neutrophils # 8.0 (Manual) 10^3/ul (1.6-7 .5) Band 0.9 Neutrophils # 10^3/ul (0.0-0 .6) Lymphocytes 2.1 (Manual) 10^3/ul (0.8-2 .9) Lymphocytes # 1.3 10^3/ul (0.8-2 .9) Reactive 0.1 Lymphocytes # 10^3/ul (0.0-0 .0) Monocytes # 1.0 10^3/ul (0.3-0 .9) Monocytes # 0.2 (Manual) 10^3/ul (0.3-0 .9) Eosinophils # 0.3 10^3/ul (0.0-0 .5) Basophils # 0.1 10^3/ul (0.0-0 .1) Myelocytes # 0.5 10^3/ul (0.0-0 .0) Nucleated Red 0.0 Blood Cells # 10^3/ul (0.0-0 .0) Platelet NORMAL Estimate Polychromasia 2+ (0-0) Anisocytosis 1+ (0-0) Microcytosis 1+ (0-0) Sodium Level 146 mmol/L (135-14 4) Potassium 4.2 Level mmol/L (3.5-5. 1) Chloride Level 118 mmol/L (97-110 ) Carbon Dioxide 24 Level mmol/L (21-31) Anion Gap 4 (5-13) Blood Urea 24 Nitrogen mg/dl (7-20) Creatinine 0.80 mg/dl (0.61-1. 24) Glucose Level 137 mg/dl (70-220) Calcium Level 7.6 mg/dl (8.4-10. 2) Phosphorus 2.3 Level mg/dl (2.5-4.9 ) Magnesium 1.6 Level mg/dl (1.7-2.5 ) Albumin 2.0 g/dl (3.3-4.9) Test 04/26/18 09:00 04/26/18 12:43 04/26/18 13:50 04/26/18 17:29 Bedside 143 168 210 Glucose mg/dL (70-220) mg/dL (70-220) mg/dL (70-220) Vancomycin < 5.0 Level Trough ug/ml (10.0-20 .0) JOHN CORRAL MD Apr 26, 2018 17:54
--- NOTE | 2018-04-26 18:02 | CONS ---
Date/Time of Note Date/Time of Note DATE: 04/26/18 TIME: 18:01 Assessment/Plan Assessment/Plan Assessment/Plan 87 yo Male with 1) Pre Renal Azotemia 2) Dehydration 3) Hypernatremia 4) AMS 5) Anemia, Chronic 6) Sepsis 7) Underlying CKD unspecified at this time. 8) Hypokalemia Restarted Feeding Cdiff negative Pre Renal Azotemia cont to improve and stable Non oliguric Cont Free H20 flushes to 200 q4hr. Renal US reviewed, No hydronephrosis. Result Diagram: 04/26/1837 04/26/1837 Results 24hrs Laboratory Tests Test 04/25/18 21:05 04/25/18 23:25 04/26/18 05:37 04/26/18 05:52 Bedside Glucose 112 135 152 White Blood Count 11.9 H Red Blood Count 3.00 L Hemoglobin 8.9 L Hematocrit 28.2 L Mean Corpuscular 94.0 Volume Mean Corpuscular 29.7 Hemoglobin Mean Corpuscular 31.6 L Hemoglobin Concent Red Cell 15.0 H Distribution Width Platelet Count 342 Mean Platelet Volume 11.1 H Immature 5.100 H Granulocytes % Neutrophils % 72.4 Segmented 66 Neutrophils % (Manual) Band Neutrophils % 8 H (Manual) Lymphocytes % 11.0 L Lymphocytes % 18 (Manual) Reactive Lymphocytes 1 H % (Manual) Monocytes % 8.7 Monocytes % (Manual) 2 Eosinophils % 2.4 Basophils % 0.4 Myelocytes % 5 H (Manual) Nucleated Red Blood 0.0 Cells % Immature 0.600 H Granulocytes # Neutrophils # 8.6 H Neutrophils # 8.0 H (Manual) Band Neutrophils # 0.9 H Lymphocytes (Manual) 2.1 Lymphocytes # 1.3 Reactive Lymphocytes 0.1 H # Monocytes # 1.0 H Monocytes # (Manual) 0.2 L Eosinophils # 0.3 Basophils # 0.1 Myelocytes # 0.5 H Nucleated Red Blood 0.0 Cells # Platelet Estimate NORMAL Polychromasia 2+ Anisocytosis 1+ Microcytosis 1+ Sodium Level 146 H Potassium Level 4.2 Chloride Level 118 H Carbon Dioxide Level 24 Anion Gap 4 L Blood Urea Nitrogen 24 #H Creatinine 0.80 Glucose Level 137 Calcium Level 7.6 L Phosphorus Level 2.3 L Magnesium Level 1.6 L Albumin 2.0 L Test 04/26/18 09:00 04/26/18 12:43 04/26/18 13:50 04/26/18 17:29 Bedside Glucose 143 168 210 Vancomycin Level < 5.0 L Trough Consultation Date/Type/Reason Admit Date/Time Apr 13, 2018 at 18:12 Initial Consult Date Type of Consult Renal Requesting Provider: ROBERT JACKSON 24 HR Interval Summary Free Text/Dictation Back feeding Sedated Constitutional: requiring O2 Exam/Review of Systems Vital Signs Vitals Vital Signs Date Temp Pulse Resp B/P (MAP) Pulse Ox O2 O2 Flow FiO2 Time Delivery Rate 04/26/18 84 16:33 04/26/18 98.4 22 128/61 100 16:01 (83) 04/26/18 2.0 13:39 04/26/18 Nasal 13:38 Cannula 04/25/18 28 05:00 Intake and Output 04/25/18 04/25/18 04/26/18 1515:00 23:00 07:00 IntakeIntake Total 50 ml 785 ml 650 ml OutputOutput Total 850 ml 650 ml BalanceBalance 50 ml -65 ml 0 ml Exam Constitutional: frail; No distress ENMT: mucosa pink and moist Neck: No jvd Respiratory: crackles/rales Cardiovascular: edema (RUE) Gastrointestinal: soft, non-tender Extremities: edema Neurological: confused, lethargic Skin: No diaphoresis Medications Medications Current Medications IV Flush (NS 3 ml) 3 ml PER PROTOCOL IV ; Start 04/13/18 at 18:30 Ondansetron HCl (Zofran Inj) 4 mg Q6H PRN IV NAUSEA AND/OR VOMITING; Start 04/13/18 at 18:30 Acetaminophen (Tylenol Supp) 650 mg Q6H PRN [place] PAIN LEVEL 1-3 OR FEVER; Start 04/13/18 at 18:30 Pantoprazole (Protonix Iv) 40 mg DAILY@06 IV Last administered on 04/26/18at 05 :46; Admin Dose 40 MG; Start 04/14/18 at 06:00 Heparin Sodium (Porcine) (Heparin (5000 Units/1ml)) 5,000 unit BID SC ; Start 04/13/18 at 21:00; Status Hold Hydralazine HCl (Apresoline) 10 mg Q4H PRN IV SBP >170; Start 04/13/18 at 19:00 Miscellaneous Information 1 ea NOTE XX ; Start 04/13/18 at 19:30 Glucose (Glutose) 15 gm Q15M PRN PO DECREASED GLUCOSE; Start 04/13/18 at 19:30 Glucose (Glutose) 22.5 gm Q15M PRN PO DECREASED GLUCOSE; Start 04/13/18 at 19:30 Dextrose (D50w Syringe) 25 ml Q15M PRN IV DECREASED GLUCOSE; Start 04/13/18 at 19:30 Dextrose (D50w Syringe) 50 ml Q15M PRN IV DECREASED GLUCOSE; Start 04/13/18 at 19:30 Glucagon (Glucagen) 1 mg Q15M PRN IM DECREASED GLUCOSE; Start 04/13/18 at 19:30 Glucose (Glutose) 15 gm Q15M PRN BUCCAL DECREASED GLUCOSE; Start 04/13/18 at 19:30 Insulin Glargine (Lantus) 16 units DAILY@0800 SC Last administered on 04/26/18 09:19; Admin Dose 16 UNITS; Start 04/16/18 at 08:00 Collagenase (Santyl) 1 applic DAILY TOP Last administered on 04/26/18at 09:00; Admin Dose 1 APPLIC; Start 04/15/18 at 11:00 Albuterol/ Ipratropium (Duoneb) 3 ml Q6HWA RESP THERAPY HHN Last administered on 04/26/18 13:37; Admin Dose 3 ML; Start 04/16/18 at 14:00 Albuterol/ Ipratropium (Duoneb) 3 ml Q2H RESP THERAPY PRN HHN shortness of breath Last administered on 04/21/18 05:48; Admin Dose 3 ML; Start 04/16/18 at 10:00 Haloperidol (Haldol) 5 mg Q12H PRN IM agitation Last administered on 04/25/18 00:35; Admin Dose 5 MG; Start 04/17/18 at 09:30 Insulin Glargine (Lantus) 15 units DAILY@2000 SC Last administered on 04/25/18 21:21; Admin Dose 15 UNITS; Start 04/20/18 at 20:00 Meropenem/Sodium Chloride 50 ml @ 100 mls/hr Q12 IVPB Last administered on 04/26/18 09:00; Admin Dose 100 MLS/HR; Start 04/21/18 at 13:00 Vancomycin HCl (Vanco Iv Per Pharmacy) VANCOMYCIN PER PHARMACY PER PROTOCOL XX ; Start 04/21/18 at 12:30 Amiodarone HCl (Cordarone) 100 mg QHS PO Last administered on 04/25/18 21:07; Admin Dose 100 MG; Start 04/21/18 at 21:00 Amiodarone HCl (Cordarone) 200 mg QAM PO Last administered on 04/26/18 09:02; Admin Dose 200 MG; Start 04/22/18 at 09:00 Memantine (Namenda) 5 mg BID PO Last administered on 04/26/18 09:01; Admin Dose 5 MG; Start 04/21/18 at 21:00 Aspirin (Aspirin) 81 mg DAILY PO Last administered on 04/26/18 09:01; Admin Dose 81 MG; Start 04/22/18 at 09:00 Vancomycin/Sodium Chloride 250 ml @ 125 mls/hr Q48H IVPB Last administered on 04/26/18 15:47; Admin Dose 125 MLS/HR; Start 04/24/18 at 15:00; Stop 04/26/18 at 20:00 Insulin Aspart (Novolog Insulin Pen) (Adult SC Insulin - Moder... Q6 SC Last administered on 04/26/18 17:31; Admin Dose 4 UNIT; Start 04/23/18 at 00:00 Hydromorphone HCl (Dilaudid) 1 mg Q4H PRN IV SEVERE PAIN LEVEL 7-10 Last administered on 04/25/18 14:34; Admin Dose 1 MG; Start 04/25/18 at 14:30 Valproate Sodium (Depakene Liquid Cup) 250 mg QHS PO Last administered on 04/25/18 21:06; Admin Dose 250 MG; Start 04/25/18 at 21:00 Valproate Sodium (Depakene Liquid Cup) 125 mg AM PO Last administered on 04/26/18 09:01; Admin Dose 125 MG; Start 04/26/18 at 09:00 Quetiapine Fumarate (Seroquel) 25 mg QHS NGT Last administered on 04/25/18 21:06; Admin Dose 25 MG; Start 04/25/18 at 21:00 Risperidone (Risperdal Liq) 1 mg BID NGT Last administered on 1/11/19at 09:01; Admin Dose 1 MG; Start 04/25/18 at 15:30 Vancomycin HCl 250 ml @ 125 mls/hr Q24H IVPB ; Start 04/27/18 at 10:00 MEETA SPENCER MD Apr 26, 2018 18:02
[2018-04-27] MEDS ORDERED: VANCOMYCIN 1 GM 250 ML IVPB SCH (10:00)
== END 2018-04-26 20:43 | DRG 871 ==
LOC: E/R 15:02 → 6WM 18:12
PROVIDERS: ADMIT Internal Medicine; ATTEND Internal Medicine
DX: A41.9 Sepsis, unspecified organism (principal); G92 Toxic encephalopathy; L89.323 Pressure ulcer of left buttock, stage 3; L89.313 Pressure ulcer of right buttock, stage 3; N17.9 Acute kidney failure, unspecified; E87.0 Hyperosmolality and hypernatremia; N39.0 Urinary tract infection, site not specified; E87.2 Acidosis; K56.7 Ileus, unspecified; N13.8 Other obstructive and reflux uropathy; E86.0 Dehydration; G30.9 Alzheimer's disease, unspecified; F02.80 Dementia in other diseases classified elsewhere, unspecified severity, without behavioral disturbance, psychotic disturbance, mood disturbance, and anxiety; E11.9 Type 2 diabetes mellitus without complications; I48.91 Unspecified atrial fibrillation; I10 Essential (primary) hypertension; F29 Unspecified psychosis not due to a substance or known physiological condition; R65.20 Severe sepsis without septic shock; R31.9 Hematuria, unspecified; J44.9 Chronic obstructive pulmonary disease, unspecified; B96.20 Unspecified Escherichia coli [E. coli] as the cause of diseases classified elsewhere; E87.6 Hypokalemia; K52.9 Noninfective gastroenteritis and colitis, unspecified; N40.1 Benign prostatic hyperplasia with lower urinary tract symptoms; L89.620 Pressure ulcer of left heel, unstageable; L89.610 Pressure ulcer of right heel, unstageable
CPT/HCPCS: 36415; 36600; 70450; 71045; 74176; 76775; 80048; 80053; 80069; 80202; 81001; 82140; 82540; 82803; 82962; 83036; 83605; 83735; 83930; 83935; 84100; 84133; 84145; 84295; 84300; 84443; 85025; 86850; 86900; 86901; 87040; 87075; 87081; 87086; 90686; 92526; 92610; 93306; 94640; 94664; 96374; 96375; C9113; J0692; J0696; J1170; J1630; J1815; J2060; J2185; J2274; J2930; J3370; J3480; J7030; J7040; J7050; J7070

== ENCOUNTER 2018-06-14 16:13 | Day surgery (SDC) | payer MEDICARE, OTHER ==
[2018-06-14] VITALS (11 sets, daily range): BP systolic 142–162; BP diastolic 81–119; PULSE 50–58; RESP 15–28
[~2018-06-14] VITALS: Ht 175.3 cm; Wt 76.2 kg
[~2018-06-14 16:13] MED LIST changes: +AMIO100T4 PO; +AMIO200T4 PO; +AMLO5TAB4 PO; +ASPI-817 PO; -ASPI-903 PO; -BISA-57 PO; +BISA5TAB6 PO; +CALC1TAB93 PO; -CLON-379 PO; -CRAN400C PO; +CRAN425C6 PO; -DIVA-75 PO; +FURO20TA3 PO; -HYDR-3498 PO; +HYDR50TA3 PO; -LISI-471 PO; +LISI40TA3 PO; +MULT-105 PO; -MULT-42 PO; +NA P230E RC; +NITR0.4T32 SL; -OSCAL PO; +SACC250C PO; -TAMS-14 PO; +TERA1CAP39 PO; +VLP250480 PO
[2018-06-14] MEDS ORDERED: MIDAZOLAM 1 MG/ML 2 ML INJ ONE (18:17)
[2018-06-14] MEDS ORDERED: LORAZEPAM 2 MG INJ IV PRN (18:30)
[2018-06-14] MEDS ORDERED: METOCLOPRAMIDE 10 MG INJ IV PRN (18:30)
[2018-06-14] MEDS ORDERED: morphine (1 MG/ML) 10ML SYRINGE IV PRN (18:30)
[2018-06-14] MEDS ORDERED: LABETALOL HCL 20MG INJ IV PRN (18:30)
[2018-06-14] MEDS ORDERED: IPRATROPIUM (NEB) 0.5 MG/2.5 ML AMP HHN PRN (18:30)
[2018-06-14] MEDS ORDERED: hydrALAzine 20 MG INJ IV PRN (18:30)
[2018-06-14] MEDS ORDERED: ALBUTEROL 0.083% (NEB) 2.5 MG/3 ML AMP HHN PRN (18:30)
[2018-06-14] MEDS ORDERED: DIPHENHYDRAMINE 50 MG INJ IV PRN (18:30)
[2018-06-14] MEDS ORDERED: FENTAnyl 50 MCG/ML VIAL IV PRN (18:30)
[2018-06-14] MEDS ORDERED: ONDANSETRON 4 MG INJ IV PRN (18:30)
[2018-06-14] MEDS ORDERED: EPHEDrine SULFATE 50 MG/5 ML SYG IV PRN (18:30)
--- NOTE | 2018-06-14 18:30 | PREAC ---
Date/Time of Note Date/Time of Note DATE: 06/14/18 TIME: 18:22 Anesthesia Eval and Record Evaluation Time Pre-Procedure Interview DATE: 06/14/18 TIME: 18:22 Age 87 Sex male NPO: 8 hrs Preoperative diagnosis Dysphagia Planned procedure PEG Placement Past Medical History Past Medical History: Includes Cardio: HTN Endo: Diabetes Neuro: Other (Encephalopathy) Renal: CKD GI: Other (Dysphagia) Heme: Anemia Surgery & Anesthesia Issues No known issue Meds Anticoagulation: No Beta Yevgeniy within 24 hr: No Reason Beta Yevgeniy not given: Pt. not on B-Yevgeniy Reported Medications Calcium Carbonate/Vitamin D3 (OYSTER SHELL 500 MG + VIT D TB) 1 Each Tablet, 1 EACH PO Q5PM, TAB 04/13/18 Memantine* (Namenda*) 5 Mg Tablet, 5 MG PO BID, #60 TAB 04/13/18 Furosemide* (Furosemide*) 20 Mg Tablet, 10 MG PO Q9AM, #60 TAB 04/13/18 Terazosin Hcl* (Hytrin*) 1 Mg Cap, 1 MG PO HS, CAP 04/13/18 Saccharomyces Boulardii* (Florastor*) 250 Mg Cap, 250 MG PO BID, CAP 04/13/18 Cranberry Extract (Cranberry) 425 Mg Capsule, 425 MG PO Q9AM, CAP 04/13/18 Aspirin* (Aspirin* EC) 81 Mg Tablet.dr, 81 MG PO DAILY, TAB 04/13/18 Amiodarone Hcl* (Amiodarone Hcl*) 200 Mg Tablet, 200 MG PO QAM, #30 TAB HOLD IF HR<60 04/13/18 Lisinopril* (Lisinopril*) 40 Mg Tablet, 40 MG PO DAILY, #30 TAB HOLD IF SBP<120 AND HR<60 04/13/18 Hydrochlorothiazide* (Hydrochlorothiazide*) 50 Mg Tab, 50 MG PO DAILY, #30 TAB 04/13/18 Valproic Acid* (Valproic Acid* Liq) 250 Mg/5 Ml Syrup, 5 ML PO Q9PM, ML 04/13/18 Valproic Acid* (Valproic Acid* Liq) 250 Mg/5 Ml Syrup, 2.5 ML PO Q9AM, ML 04/13/18 Nitroglycerin* (Nitroglycerin* SL) 0.4 Mg Tab.subl, 0.4 MG SL Q5MIN PRN for CHEST PAIN, BOTTLE 04/13/18 Multivitamin with Minerals (Multivitamins with Minerals) 1 Each Tablet, 1 EACH PO Q9AM, TAB 04/13/18 Amlodipine Besylate* (Norvasc*) 5 Mg Tablet, 5 MG PO Q9AM, TAB HOLD IF SBP<118 04/13/18 Amiodarone Hcl* (Amiodarone Hcl*) 100 Mg Tablet, 100 MG PO QHS, #30 TAB HOLD IF HR<60 04/13/18 Na Phos,M-B/Na Phos,Di-Ba (Fleet Enema Extra) 230 Ml Enema, 230 ML RC NEEDED, ENEMA 04/13/18 Acetaminophen* (Tylenol*) 325 Mg Tablet, 650 MG PO Q4H PRN for MILD PAIN LEVEL 1-3, TAB AND FEVER>100F 04/13/18 Magnesium Hydroxide* (Milk Of Magnesia*) 400 Mg/5 Ml Oral.susp, 30 ML PO QHS PRN for NEEDED, ML 04/13/18 Bisacodyl* (Bisacodyl*) 5 Mg Tablet.dr, 10 MG PO DAILY PRN for CONSTIPATION, TAB 04/13/18 Meds reviewed: No Allergies Coded Allergies: No Known Allergy (Unverified , 04/26/18) Allergies Reviewed: Yes Labs/Studies Labs Reviewed: Reviewed by anesthesiologist Result Diagram: 06/14/18 1748 Laboratory Tests 06/14/18 17:48 test: N/A Studies: ECG (NSR), CXR (no acute changes,) Pre-procedure Exam Airway: Adequate mouth opening, Adequate thyromental dist Mallampati: Mallampati II Teeth: Normal Lung: Normal Heart: Normal ASA Physical Status ASA physical status: 4 Emergency: None Planned Anesthetic General/MAC: MAC Planned Pain Management Parenteral pain med Pre-operative Attestations Prior to commencing anesthesia and surgery, the patient was re-evaluated, there was verification of: *The patient's identity *The results of appropriate recent lab work and preoperative vital signs *The above evaluation not changing prior to induction *Anesthetic plan, risk benefits, alternative and complications discussed with patient/family; questions answered; patient/family understands, accepts and wishes to proceed. GIANFRANCO KAPLAN MD Jun 14, 2018 18:30
[2018-06-14] MEDS ORDERED: PROPOFOL 20 ML ONE (18:33)
[2018-06-14] MEDS ORDERED: CEFAZOLIN 1 GM/50 ML (PMX) 50 ML IVPB ONE (18:58)
--- NOTE | 2018-06-14 19:29 | PAC ---
Date/Time of Note Date/Time of Note DATE: 06/14/18 TIME: 19:28 Post-Anesthesia Notes Post-Anesthesia Note Last documented vital signs T:98.0 Activity: WNL Respiratory function: WNL Cardiovascular function: WNL Mental status: Baseline Pain reasonably controlled: Yes Hydration appropriate: Yes Nausea/Vomiting absent: Yes GIANFRANCO KAPLAN MD Jun 14, 2018 19:29
== END 2018-06-14 20:45 ==
LOC: GIL 16:13
PROVIDERS: ATTEND Internal Medicine Gastroenterology
DX: R13.14 Dysphagia, pharyngoesophageal phase (principal); E11.9 Type 2 diabetes mellitus without complications; I12.9 Hypertensive chronic kidney disease with stage 1 through stage 4 chronic kidney disease, or unspecified chronic kidney disease; N18.9 Chronic kidney disease, unspecified; I73.9 Peripheral vascular disease, unspecified; G30.9 Alzheimer's disease, unspecified; F02.80 Dementia in other diseases classified elsewhere, unspecified severity, without behavioral disturbance, psychotic disturbance, mood disturbance, and anxiety; J44.9 Chronic obstructive pulmonary disease, unspecified; I48.91 Unspecified atrial fibrillation
CPT/HCPCS: 43246; 80053; 85025; 85610; 85730; J0690; J2250

== ENCOUNTER 2018-07-25 19:55 | Inpatient (IN) | payer MEDICARE, OTHER ==
[~2018-07-25] VITALS: Ht 167.6 cm; Wt 78.4 kg
[2018-07-25] MEDS ORDERED: ACETAMINOPHEN 650MG/20.3ML CUP NGT STA (20:04)
[2018-07-25] MEDS ORDERED: CEFEPIME 2GM/50 ML (PMX) 50 ML IVPB STA (20:04)
[2018-07-25] MEDS ORDERED: SODIUM CHLORIDE 0.9% 1L BAG IV* STA (20:04)
[2018-07-25] MEDS ORDERED: VANCOMYCIN 1 GM (PMX) 250 ML IVPB ONE (20:30)
--- NOTE | 2018-07-25 22:28 | ERD ---
ER Documentation Chief Complaint Chief Complaint bib pa from [facility] for Bilateral Lower foot wound, HPI 87-year-old gentleman history of dementia who presents from shelter facility because of bilateral foot wounds and a fever. Remainder of HPI is very limited. Patient arrives with very limited documentation. He is DNR with limited interventions. ROS Limited as described above Medications Home Meds Reported Medications Calcium Carbonate/Vitamin D3 (OYSTER SHELL 500 MG + VIT D TB) 1 Each Tablet, 1 EACH PO Q5PM, TAB 04/13/18 Memantine* (Namenda*) 5 Mg Tablet, 5 MG PO BID, #60 TAB 04/13/18 Furosemide* (Furosemide*) 20 Mg Tablet, 10 MG PO Q9AM, #60 TAB 04/13/18 Terazosin Hcl* (Hytrin*) 1 Mg Cap, 1 MG PO HS, CAP 04/13/18 Saccharomyces Boulardii* (Florastor*) 250 Mg Cap, 250 MG PO BID, CAP 04/13/18 Cranberry Extract (Cranberry) 425 Mg Capsule, 425 MG PO Q9AM, CAP 04/13/18 Aspirin* (Aspirin* EC) 81 Mg Tablet.dr, 81 MG PO DAILY, TAB 04/13/18 Amiodarone Hcl* (Amiodarone Hcl*) 200 Mg Tablet, 200 MG PO QAM, #30 TAB HOLD IF HR<60 04/13/18 Lisinopril* (Lisinopril*) 40 Mg Tablet, 40 MG PO DAILY, #30 TAB HOLD IF SBP<120 AND HR<60 04/13/18 Hydrochlorothiazide* (Hydrochlorothiazide*) 50 Mg Tab, 50 MG PO DAILY, #30 TAB 04/13/18 Valproic Acid* (Valproic Acid* Liq) 250 Mg/5 Ml Syrup, 5 ML PO Q9PM, ML 04/13/18 Valproic Acid* (Valproic Acid* Liq) 250 Mg/5 Ml Syrup, 2.5 ML PO Q9AM, ML 04/13/18 Nitroglycerin* (Nitroglycerin* SL) 0.4 Mg Tab.subl, 0.4 MG SL Q5MIN PRN for CHEST PAIN, BOTTLE 04/13/18 Multivitamin with Minerals (Multivitamins with Minerals) 1 Each Tablet, 1 EACH PO Q9AM, TAB 12/29/18 Amlodipine Besylate* (Norvasc*) 5 Mg Tablet, 5 MG PO Q9AM, TAB HOLD IF SBP<118 04/13/18 Amiodarone Hcl* (Amiodarone Hcl*) 100 Mg Tablet, 100 MG PO QHS, #30 TAB HOLD IF HR<60 04/13/18 Na Phos,M-B/Na Phos,Di-Ba (Fleet Enema Extra) 230 Ml Enema, 230 ML RC NEEDED, ENEMA 04/13/18 Acetaminophen* (Tylenol*) 325 Mg Tablet, 650 MG PO Q4H PRN for MILD PAIN LEVEL 1-3, TAB AND FEVER>100F 04/13/18 Magnesium Hydroxide* (Milk Of Magnesia*) 400 Mg/5 Ml Oral.susp, 30 ML PO QHS PRN for NEEDED, ML 04/13/18 Bisacodyl* (Bisacodyl*) 5 Mg Tablet.dr, 10 MG PO DAILY PRN for CONSTIPATION, TAB 04/13/18 Allergies Allergies: Coded Allergies: No Known Allergy (Unverified , 04/26/18) PMhx/Soc History of Surgery: Yes (G TUBE) Anesthesia Reaction: No Hx Neurological Disorder: Yes (EPILEPSY) Hx Respiratory Disorders: Yes (COPD) Hx Cardiac Disorders: Yes (HTN, AFIB ) Hx Psychiatric Problems: Yes (ANXIETY, PSYCHOSIS) Hx Miscellaneous Medical Probl: Yes (GERD, DM2, PVD, DYSPHAGIA) Hx Alcohol Use: No Hx Substance Use: No Hx Tobacco Use: No Smoking Status: Unknown if ever smoked FmHx Family History: No diabetes Physical Exam Vitals Vital Signs Date Temp Pulse Resp B/P (MAP) Pulse Ox O2 O2 Flow FiO2 Time Delivery Rate 07/25/18 39.0 20:35 07/25/18 Nasal 2 20:05 Cannula 07/25/18 102.2 101 19 138/88 97 19:57 (105) Physical Exam General: No significant distress, contracted Head: Normocephalic, atraumatic. Eyes: Pupils equally reactive, EOM intact ENT: Moist mucous membranes Neck: Supple, no lymphadenopathy Respiratory: Lungs clear bilaterally, no distress Cardiovascular: Tachycardia , no murmurs, rubs, or gallops Abdominal: Soft, non-tender, non-distended, no peritoneal signs : Deferred MSK: Chronic wounds to the bilateral lower extremity feet with drainage, soaked dressings. Limited movement of all 4 extremities, no bony abnormalities Neurologic: Limited exam, and encephalopathic, limited movement of all 4 extremities Skin: No rash Psych: Unable to assess Result Diagram: 07/25/18200907/25/182009 Results 24 hrs Laboratory Tests Test 07/25/18 20:10 07/25/18 20:17 07/25/18 21:10 White Blood Count 20.3 10^3/ul Red Blood Count 4.06 10^6/ul Hemoglobin 11.3 g/dl Hematocrit 36.8 % Mean Corpuscular Volume 90.6 fl Mean Corpuscular Hemoglobin 27.8 pg Mean Corpuscular 30.7 g/dl Hemoglobin Concent Red Cell Distribution Width 16.4 % Platelet Count 481 10^3/UL Mean Platelet Volume 11.1 fl Immature Granulocytes % 5.100 % Neutrophils % % Segmented Neutrophils % (Manual) 80 % Band Neutrophils % (Manual) 4 % Lymphocytes % % Lymphocytes % (Manual) 7 % Monocytes % % Monocytes % (Manual) 5 % Eosinophils % % Basophils % % Metamyelocytes % (manual) 1 % Myelocytes % (Manual) 2 % Nucleated Red Blood Cells % 0.0 /100WBC Immature Granulocytes # 1.030 10^3/ul Neutrophils # 10^3/ul Neutrophils # (Manual) 16.4 10^3/ul Band Neutrophils # 0.8 10^3/ul Lymphocytes (Manual) 1.4 10^3/ul Lymphocytes # 10^3/ul Monocytes # 10^3/ul Monocytes # (Manual) 1.0 10^3/ul Eosinophils # 10^3/ul Basophils # 10^3/ul Metamyelocytes # 0.2 10^3/ul Myelocytes # 0.4 10^3/ul Nucleated Red Blood Cells # 10^3/ul Platelet Estimate INCREASED Polychromasia 3+ Poikilocytosis 1+ Anisocytosis 2+ Microcytosis 2+ Erythrocyte Sedimentation Rate 115 mm/Hr Prothrombin Time 15.2 Sec Prothrombin Time Ratio 1.2 INR International 1.19 Normalized Ratio Activated Partial Thromboplast 30.5 Sec Time Sodium Level 148 mmol/L Potassium Level 4.0 mmol/L Chloride Level 115 mmol/L Carbon Dioxide Level 29 mmol/L Anion Gap 4 Blood Urea Nitrogen 26 mg/dl Creatinine 0.58 mg/dl Est Glomerular Filtrat mL/min Rate mL/min Glucose Level 219 mg/dl Calcium Level 8.6 mg/dl Total Bilirubin 0.4 mg/dl Direct Bilirubin 0.00 mg/dl Indirect Bilirubin 0.4 mg/dl Aspartate Amino 23 IU/L Transf (AST/SGOT) Alanine 15 IU/L Aminotransferase (ALT/SGPT) Alkaline Phosphatase 86 IU/L Troponin I 0.179 ng/ml C-Reactive Protein 19.0 mg/dl Total Protein 6.6 g/dl Albumin 2.9 g/dl Globulin 3.70 g/dl Albumin/Globulin Ratio 0.78 POC Venous Lactate 1.4 mmol/L Urine Color ZHENG Urine Clarity CLOUDY Urine pH 8.0 Urine Specific [place] 1.025 Urine Ketones NEGATIVE mg/dL Urine Nitrite NEGATIVE mg/dL Urine Bilirubin NEGATIVE mg/dL Urine Urobilinogen 1+ mg/dL Urine Leukocyte Esterase 2+ Joni/ul Urine Microscopic RBC > 182 /HPF Urine Microscopic WBC > 182 /HPF Urine Squamous Epithelial Cells MANY /HPF Urine Yeast (Budding) MODERATE /HPF Urine Hemoglobin 3+ mg/dL Urine Glucose NEGATIVE mg/dL Urine Total Protein 2+ mg/dl Current Medications Medications Dose Sig/Toby Start Time Status Last (Trade) Ordered Route PRN Stop Time Admin Dose Reason Admin Sodium 2,100 ml BOLUS OVER 2 07/25/18 DC 07/25/18 Chloride HOURS STAT 20:04 20:23 (NS) IV* 07/25/18 20:06 650 mg ONCE STAT 07/25/18 DC 07/25/18 Acetaminophen NGT 20:04 20:35 (Tylenol 07/25/18 20:06 Liquid) Cefepime HCl 50 ml @ ONCE STAT 07/25/18 DC 07/25/18 100 mls/hr IVPB 20:04 20:35 07/25/18 20:33 Vancomycin 250 ml @ ONCE ONCE 07/25/18 07/25/18 HCl 125 mls/hr IVPB 20:30 21:06 07/25/18 22:29 Procedures/MDM EKG, MONITORS, & DIAGNOSTIC IMAGING: EKG: I reviewed and interpreted a 12-lead EKG. Rhythm: sinus tach ST Changes: No contiguous ST segment elevations T waves: No contiguous T wave inversions Impression: No evidence of acute cardiac ischemia cxr IMPRESSION: Unchanged mild patchy right lower lobe infiltrate and atelectasis. Calcified aorta consistent with atherosclerotic disease. LAB INTERPRETATION: I reviewed the laboratory testing and it shows a glucose of 20.3, mild anemia, elevated ESR and CRP, elevated troponin of 0.179 likely demand ischemia. Normal lactic acid of 1.4. Urinary tract infection. MEDICAL DECISION MAKING: The patient has criteria concerning for sepsis. A code sepsis was initiated. The patient received blood cultures prior to antibiotics, normal saline bolus and broad-spectrum antibiotics. Patient has multiple sources of possible infection including urinary tract infection, chronic wounds to the bilateral lower extremities. Patient is DNR/DNI and will be treated with IV fluids and antibiotics with supportive measures. He is resting comfortably currently. ER COURSE: * Patient treated with sepsis as above with blood cultures prior to antibiotics, 30/kg bolus of saline. * Vital signs improving. Patient is him dynamically stable does not require central line or pressors or intubation. CONSULTATION: None DISPOSITION PLAN: Accepting care team and consultations: I discussed the current laboratory data, diagnostic imaging and emergency care provided. Admitting team: Dr. Figueroa Admitting team indication: Insurance directed Sepsis Documentation: Patient's infectious symptoms have not stabilized and the patient is at risk of rapid decompensation. The patient will be admitted for careful hydration, antibiotic therapy, and infectious source control. SEVERE SEPSIS CRITERIA: Infectious source: Urinary tract infection End organ damage indicated by: SEPSIS MANAGEMENT Time of recognition of sepsis: Upon MD assessment. Time of recognition of severe sepsis: No severe sepsis at this time. Time of recognition of septic shock: No septic shock at this time. 3 HOUR BUNDLE Blood cultures x 2 before broad-spectrum antibiotics: Yes 30 ml/kg NS bolus completed Initial lactate less than 2 Repeat lactate pending repeat SEPTIC SHOCK ASSESSMENT: No lactic acid > 4.0 No persistent hypotension (SBP < 90 or 40 mmHg drop, MAP < 65) despite 30 mL/kg IV fluid bolus VOLUME REASSESSMENT FOR SEPTIC SHOCK: The patient does not meet criteria for septic shock in the emergency department at this time PERSISTENT HYPOTENSION TREATMENT: Comfort care YES DNR/DNI with comfort measures preferred Central line not Required Vasopressor started not required I considered further perfusion assessment with CVP measurement, SCVO2, bedside ultrasound volume assessment, passive leg raise, trial of further fluid bolus. And proceeded with 30 ml/kg fluid bolus of NSS, broad spectrum antibiotics, and admission. CRITICAL CARE Critical care time 35 minutes Emergent fluid management while maintaining close respiratory support. Provision of immediate and broad-spectrum antibiotic therapy. Simultaneous assessment for possible sources in order to direct targeted therapy. Consideration for invasive and chemical support to prevent cardiopulmonary collapse. Critical care time is independent of procedures performed. Departure Diagnosis: Primary Impression: Sepsis Sepsis type: sepsis due to unspecified organism Qualified Codes: A41.9 - Sepsis, unspecified organism Additional Impressions: Urinary tract infection Urinary tract infection type: acute cystitis Hematuria presence: without hematuria Qualified Codes: N30.00 - Acute cystitis without hematuria Wound of left foot Wound of right foot DNR (do not resuscitate) DNI (do not intubate) Non-ST elevation myocardial infarction (NSTEMI) Condition: SERGIO Jeffery MD Jul 25, 2018 22:27
[2018-07-25] MEDS ORDERED: ONDANSETRON 4 MG INJ IV PRN ×2 (23:00)
[2018-07-25] MEDS ORDERED: ACETAMINOPHEN 325 MG TAB PO PRN (23:00)
[2018-07-25] MEDS ORDERED: VANCOMYCIN IV PER PHARMACY XX SCH (23:00)
[2018-07-25] MEDS ORDERED: NACL 0.9% 3 ML SYG IV SCH (23:00)
[2018-07-25] MEDS: SOD CHLORIDE 0.9% 1,000 ML IV SCH (23:46)
[2018-07-26] VITALS (10 sets, daily range): BP systolic 127–137; BP diastolic 55–78; PULSE 72–88; RESP 18–19; Ht 167.6 cm; Wt 78.4 kg
[2018-07-26] MEDS: CEFEPIME 2GM/50 ML (PMX) 50 ML IVPB SCH ×3 (06:00→21:32)
[2018-07-26] MEDS ORDERED: PENDING SANTYL ORDER FOR WOUND CARE XX PRN (06:00)
[2018-07-26] MEDS: SOD CHLORIDE 0.9% 1,000 ML IV SCH (08:43)
[2018-07-26] MEDS: FAMOTIDINE 20 MG INJ IV SCH ×2 (09:00→21:31)
[2018-07-26] MEDS ORDERED: VANCOMYCIN 1 GM 250 ML IVPB SCH (09:00)
[2018-07-26] MEDS: ENOXAPARIN 30 MG/0.3 ML SYG SC SCH (09:28)
--- NOTE | 2018-07-26 10:20 | CONS ---
Assessment/Plan Assessment/Plan Assessment/Plan (Daily) Chest x-ray is essentially clear. Assessment recommendations; 1. Patient admitted with sepsis, source likely his lower extremity skin wounds. 2. Advanced dementia. 3. Significant leukocytosis. Continue current supportive care. Currently there is no acute pulmonary pathology. Further antibiotic adjustment to be done once wound culture results are obtained. Consultation Date/Type/Reason Admit Date/Time Jul 25, 2018 at 22:41 Date of Consultation: Jul 26, 2018 Type of Consult Pulmonary Patient is a 87-year-old male with history of advanced dementia transferred from senior care because of lower extremity skin wounds. Chest x-ray also was done which is showing patchy infiltrative changes. Patient by himself was unable to give any history whatsoever. Patient however did not appear to be in any distress. Past medical history; 1. History of advanced dementia. 2. History of recurrent sepsis. Medications; reviewed. Allergies; none. Family history, social history, occupational history is not available. Review of systems; unable to be obtained. General exam; elderly male, remains noncommunicative. Currently in no distress. Date/Time of Note DATE: 07/26/18 TIME: 10:17 Past Medical History Home Meds Reported Medications Calcium Carbonate/Vitamin D3 (OYSTER SHELL 500 MG + VIT D TB) 1 Each Tablet, 1 EACH PO Q5PM, TAB 04/13/18 Memantine* (Namenda*) 5 Mg Tablet, 5 MG PO BID, #60 TAB 04/13/18 Furosemide* (Furosemide*) 20 Mg Tablet, 10 MG PO Q9AM, #60 TAB 04/13/18 Terazosin Hcl* (Hytrin*) 1 Mg Cap, 1 MG PO HS, CAP 04/13/18 Saccharomyces Boulardii* (Florastor*) 250 Mg Cap, 250 MG PO BID, CAP 04/13/18 Cranberry Extract (Cranberry) 425 Mg Capsule, 425 MG PO Q9AM, CAP 04/13/18 Aspirin* (Aspirin* EC) 81 Mg Tablet.dr, 81 MG PO DAILY, TAB 04/13/18 Amiodarone Hcl* (Amiodarone Hcl*) 200 Mg Tablet, 200 MG PO QAM, #30 TAB HOLD IF HR<60 04/13/18 Lisinopril* (Lisinopril*) 40 Mg Tablet, 40 MG PO DAILY, #30 TAB HOLD IF SBP<120 AND HR<60 04/13/18 Hydrochlorothiazide* (Hydrochlorothiazide*) 50 Mg Tab, 50 MG PO DAILY, #30 TAB 04/13/18 Valproic Acid* (Valproic Acid* Liq) 250 Mg/5 Ml Syrup, 5 ML PO Q9PM, ML 04/13/18 Valproic Acid* (Valproic Acid* Liq) 250 Mg/5 Ml Syrup, 2.5 ML PO Q9AM, ML 04/13/18 Nitroglycerin* (Nitroglycerin* SL) 0.4 Mg Tab.subl, 0.4 MG SL Q5MIN PRN for CHEST PAIN, BOTTLE 04/13/18 Multivitamin with Minerals (Multivitamins with Minerals) 1 Each Tablet, 1 EACH PO Q9AM, TAB 04/13/18 Amlodipine Besylate* (Norvasc*) 5 Mg Tablet, 5 MG PO Q9AM, TAB HOLD IF SBP<118 04/13/18 Amiodarone Hcl* (Amiodarone Hcl*) 100 Mg Tablet, 100 MG PO QHS, #30 TAB HOLD IF HR<60 04/13/18 Na Phos,M-B/Na Phos,Di-Ba (Fleet Enema Extra) 230 Ml Enema, 230 ML RC NEEDED, ENEMA 04/13/18 Acetaminophen* (Tylenol*) 325 Mg Tablet, 650 MG PO Q4H PRN for MILD PAIN LEVEL 1-3, TAB AND FEVER>100F 04/13/18 Magnesium Hydroxide* (Milk Of Magnesia*) 400 Mg/5 Ml Oral.susp, 30 ML PO QHS PRN for NEEDED, ML 04/13/18 Bisacodyl* (Bisacodyl*) 5 Mg Tablet.dr, 10 MG PO DAILY PRN for CONSTIPATION, TAB 04/13/18 Medications Current Medications Sodium Chloride 1,000 ml @ 100 mls/hr Q10H IV Last administered on 07/25/18at 23:46; Admin Dose 100 MLS/HR; Start 07/25/18 at 22:43 IV Flush (NS 3 ml) 3 ml PER PROTOCOL IV ; Start 07/25/18 at 23:00 Ondansetron HCl (Zofran Inj) 4 mg Q6H PRN IV NAUSEA/VOMITING; Start 07/25/18 at 23:00 Acetaminophen (Tylenol Tab) 650 mg Q6H PRN PO .PAIN 1-3 OR TEMP; Start 07/25/18 at 23:00 Morphine Sulfate (morphine) 2 mg Q4H PRN IV .PAIN 7-10; Start 07/25/18 at 23:00 Famotidine (Pepcid Iv) 20 mg Q12 IV ; Start 07/26/18 at 09:00 Enoxaparin Sodium (Lovenox) 30 mg DAILY SC Last administered on 07/26/18at 09:28; Admin Dose 30 MG; Start 07/26/18 at 09:00 Cefepime HCl 50 ml @ 100 mls/hr Q8 IVPB ; Start 07/26/18 at 06:00 Vancomycin HCl (Vanco Iv Per Pharmacy) VANCOMYCIN PER PHARMACY PER PROTOCOL XX ; Start 07/25/18 at 23:00 Vancomycin HCl 250 ml @ 125 mls/hr Q12H IVPB Last administered on 07/26/18at 08:57; Admin Dose 125 MLS/HR; Start 07/26/18 at 09:00 Miscellaneous Information (Pending Santyl Order For Wound Care) This patient fajardo... PRN PRN XX WOUND CARE; Start 07/26/18 at 06:00 Allergies: Coded Allergies: No Known Allergy (Unverified , 04/26/18) Past Surgical History Past Surgical Hx: other Social History Smoking Status: Unknown if ever smoked Exam/Review of Systems Exam Vitals Vital Signs Date Temp Pulse Resp B/P (MAP) Pulse Ox O2 O2 Flow FiO2 Time Delivery Rate 07/26/18 80 08:59 07/26/18 98.8 18 128/60 97 07:52 (82) 07/26/18 Room Air 04:07 Nasal Cannula 07/26/18 2.0 02:00 Intake and Output 07/25/18 07/25/18 07/26/18 1515:00 23:00 07:00 IntakeIntake Total 2050 ml 250 ml BalanceBalance 2050 ml 250 ml Exam H EENT exam; supple neck, no JVD. No lymphadenopathy. Midline trachea. No thyromegaly. Patient has a few remaining carious teeth. No neck masses. Chest exam; clear to auscultation. S1-S2 audible, no murmurs. Regular rhythm. Abdomen exam; soft, no organomegaly. Nondistended. Bowel sounds audible. Extremity exam; no peripheral edema. Patient does have lower extremity skin ul cers. TERMINAL GAUGER exam; patient is awake but noncommunicative. Results Result Diagram: 07/26/18 0532 07/26/18 0532 Results 24hrs Laboratory Tests Test 07/25/18 20:10 07/25/18 20:17 07/25/18 21:10 07/25/18 22:36 White Blood Count 20.3 #H Red Blood Count 4.06 L Hemoglobin 11.3 L Hematocrit 36.8 L Mean Corpuscular 90.6 Volume Mean Corpuscular 27.8 L Hemoglobin Mean Corpuscular 30.7 L Hemoglobin Concent Red Cell 16.4 H Distribution Width Platelet Count 481 #H Mean Platelet Volume 11.1 H Immature 5.100 H Granulocytes % Neutrophils % Segmented 80 H Neutrophils % (Manual) Band Neutrophils % 4 (Manual) Lymphocytes % Lymphocytes % 7 L (Manual) Monocytes % Monocytes % (Manual) 5 Eosinophils % Basophils % Metamyelocytes % 1 H (manual) Myelocytes % 2 H (Manual) Nucleated Red Blood 0.0 Cells % Immature 1.030 H Granulocytes # Neutrophils # Neutrophils # 16.4 H (Manual) Band Neutrophils # 0.8 H Lymphocytes (Manual) 1.4 Lymphocytes # Monocytes # Monocytes # (Manual) 1.0 H Eosinophils # Basophils # Metamyelocytes # 0.2 H Myelocytes # 0.4 H Nucleated Red Blood Cells # Platelet Estimate INCREASED Polychromasia 3+ Poikilocytosis 1+ Anisocytosis 2+ Microcytosis 2+ Erythrocyte 115 H Sedimentation Rate Prothrombin Time 15.2 H Prothrombin Time 1.2 Ratio INR International 1.19 Normalized Ratio Activated 30.5 Partial Thromboplast Time Sodium Level 148 H Potassium Level 4.0 Chloride Level 115 H Carbon Dioxide Level 29 Anion Gap 4 L Blood Urea Nitrogen 26 H Creatinine 0.58 L Est Glomerular Filtrat Rate mL/min Glucose Level 219 Calcium Level 8.6 Total Bilirubin 0.4 Direct Bilirubin 0.00 Indirect Bilirubin 0.4 Aspartate Amino 23 Transf (AST/SGOT) Alanine 15 Aminotransferase (AL T/SGPT) Alkaline Phosphatase 86 Troponin I 0.179 *H 0.184 *H C-Reactive Protein 19.0 H Total Protein 6.6 Albumin 2.9 L Globulin 3.70 H Albumin/Globulin 0.78 Ratio POC Venous Lactate 1.4 Urine Color ZHENG Urine Clarity CLOUDY A Urine pH 8.0 Urine Specific 1.025 [place] Urine Ketones NEGATIVE Urine Nitrite NEGATIVE Urine Bilirubin NEGATIVE Urine Urobilinogen 1+ H Urine Leukocyte 2+ H Esterase Urine Microscopic > 182 H RBC Urine Microscopic > 182 H WBC Urine Squamous MANY A Epithelial Cells Urine Yeast MODERATE A (Budding) Urine Hemoglobin 3+ H Urine Glucose NEGATIVE Urine Total Protein 2+ H Lactic Acid Level 2.0 Creatine Kinase 53 Creatine Kinase 1.1 Index Creatinine Kinase MB 0.57 (Mass) Test 07/26/18 01:04 07/26/18 05:32 Lactic Acid Level 1.0 White Blood Count 20.7 H Red Blood Count 3.61 L Hemoglobin 10.1 L Hematocrit 34.2 L Mean Corpuscular 94.7 Volume Mean Corpuscular 28.0 L Hemoglobin Mean Corpuscular 29.5 L Hemoglobin Concent Red Cell 16.2 H Distribution Width Platelet Count 399 Mean Platelet Volume 11.2 H Immature 5.600 H Granulocytes % Neutrophils % Segmented 75 Neutrophils % (Manual) Band Neutrophils % 4 (Manual) Lymphocytes % Lymphocytes % 5 L (Manual) Reactive Lymphocytes 4 H % (Manual) Monocytes % Monocytes % (Manual) 5 Eosinophils % Eosinophils % 2 (Manual) Basophils % Metamyelocytes % 2 H (manual) Myelocytes % 3 H (Manual) Nucleated Red Blood 0.0 Cells % Immature 1.150 H Granulocytes # Neutrophils # Neutrophils # 15.7 H (Manual) Band Neutrophils # 0.8 H Lymphocytes (Manual) 1.0 Lymphocytes # Reactive Lymphocytes 0.8 H # Monocytes # Monocytes # (Manual) 1.0 H Eosinophils # Basophils # Metamyelocytes # 0.4 H Myelocytes # 0.6 H Nucleated Red Blood Cells # Platelet Estimate NORMAL Polychromasia 3+ Poikilocytosis 1+ Anisocytosis 2+ Microcytosis 2+ Elliptocytes 1+ Sodium Level 149 H Potassium Level 3.6 Chloride Level 121 H Carbon Dioxide Level 26 Anion Gap 2 L Blood Urea Nitrogen 22 H Creatinine 0.50 L Est Glomerular Filtrat Rate mL/min Glucose Level 173 Hemoglobin A1c 6.5 H Calcium Level 7.9 L Total Bilirubin 0.4 Direct Bilirubin 0.00 Indirect Bilirubin 0.4 Aspartate Amino 20 Transf (AST/SGOT) Alanine 19 Aminotransferase (AL T/SGPT) Alkaline Phosphatase 70 Creatine Kinase 63 Creatine Kinase 2.1 Index Creatinine Kinase MB 1.30 (Mass) Troponin I 0.153 *H Total Protein 5.7 L Albumin 2.6 L Globulin 3.10 Albumin/Globulin 0.83 Ratio Medications Medication Current Medications Sodium Chloride 1,000 ml @ 100 mls/hr Q10H IV Last administered on 07/25/18at 23:46; Admin Dose 100 MLS/HR; Start 07/25/18 at 22:43 IV Flush (NS 3 ml) 3 ml PER PROTOCOL IV ; Start 07/25/18 at 23:00 Ondansetron HCl (Zofran Inj) 4 mg Q6H PRN IV NAUSEA/VOMITING; Start 07/25/18 at 23:00 Acetaminophen (Tylenol Tab) 650 mg Q6H PRN PO .PAIN 1-3 OR TEMP; Start 07/25/18 at 23:00 Morphine Sulfate (morphine) 2 mg Q4H PRN IV .PAIN 7-10; Start 07/25/18 at 23:00 Famotidine (Pepcid Iv) 20 mg Q12 IV ; Start 07/26/18 at 09:00 Enoxaparin Sodium (Lovenox) 30 mg DAILY SC Last administered on 07/26/18at 09:28; Admin Dose 30 MG; Start 07/26/18 at 09:00 Cefepime HCl 50 ml @ 100 mls/hr Q8 IVPB ; Start 07/26/18 at 06:00 Vancomycin HCl (Vanco Iv Per Pharmacy) VANCOMYCIN PER PHARMACY PER PROTOCOL XX ; Start 07/25/18 at 23:00 Vancomycin HCl 250 ml @ 125 mls/hr Q12H IVPB Last administered on 07/26/18at 08:57; Admin Dose 125 MLS/HR; Start 07/26/18 at 09:00 Miscellaneous Information (Pending Santyl Order For Wound Care) This patient fajardo... PRN PRN XX WOUND CARE; Start 07/26/18 at 06:00 ANASTACIA QUEZADA Jul 26, 2018 10:20
[2018-07-26] MEDS ORDERED: BISACODYL (EC) 5 MG TAB PO PRN (11:00)
[2018-07-26] MEDS ORDERED: MAGNESIUM HYDROXIDE 30ML CUP PO PRN (11:00)
[2018-07-26] MEDS ORDERED: ACETAMINOPHEN 325 MG TAB PO PRN (11:00)
[2018-07-26] MEDS ORDERED: NITROGLYCERIN (SL) 0.4 MG TAB SL PRN (11:00)
--- NOTE | 2018-07-26 12:27 | CONS ---
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 Unknown POA for the patient. Recommend daily dressing changes with betadine and dry sterile dressings. Wound cultures obtained/pending. Appreciate vascular surgery input. Continue with IV abx as recommended. Offload feet/heels with pillows. Consultation Date/Type/Reason Admit Date/Time Jul 25, 2018 at 22:41 Date/Time of Note DATE: 07/26/18 TIME: 12:26 Hx of Present Illness 87 y/o M patient with hx of dementia and transferred from [facility] presents to the floor with foul smelling ulcers with gangrene. Patient is non- verbal but is able to display distress and pain to the ulceration sites. Patient was noted to have elevated white blood cell count. Patient had documented fevers. ROS Negative except for HPI Past Medical History epilepsy, COPD, AFIB, HTN, anxiety, psychosis, GERD, PVD, dysphagia. DM2 Home Meds Reported Medications Calcium Carbonate/Vitamin D3 (OYSTER SHELL 500 MG + VIT D TB) 1 Each Tablet, 1 EACH PO Q5PM, TAB 04/13/18 Memantine* (Namenda*) 5 Mg Tablet, 5 MG PO BID, #60 TAB 04/13/18 Furosemide* (Furosemide*) 20 Mg Tablet, 10 MG PO Q9AM, #60 TAB 04/13/18 Terazosin Hcl* (Hytrin*) 1 Mg Cap, 1 MG PO HS, CAP 04/13/18 Saccharomyces Boulardii* (Florastor*) 250 Mg Cap, 250 MG PO BID, CAP 04/13/18 Cranberry Extract (Cranberry) 425 Mg Capsule, 425 MG PO Q9AM, CAP 04/13/18 Aspirin* (Aspirin* EC) 81 Mg Tablet.dr, 81 MG PO DAILY, TAB 04/13/18 Amiodarone Hcl* (Amiodarone Hcl*) 200 Mg Tablet, 200 MG PO QAM, #30 TAB HOLD IF HR<60 04/13/18 Lisinopril* (Lisinopril*) 40 Mg Tablet, 40 MG PO DAILY, #30 TAB HOLD IF SBP<120 AND HR<60 04/13/18 Hydrochlorothiazide* (Hydrochlorothiazide*) 50 Mg Tab, 50 MG PO DAILY, #30 TAB 04/13/18 Valproic Acid* (Valproic Acid* Liq) 250 Mg/5 Ml Syrup, 5 ML PO Q9PM, ML 04/13/18 Valproic Acid* (Valproic Acid* Liq) 250 Mg/5 Ml Syrup, 2.5 ML PO Q9AM, ML 04/13/18 Nitroglycerin* (Nitroglycerin* SL) 0.4 Mg Tab.subl, 0.4 MG SL Q5MIN PRN for CHEST PAIN, BOTTLE 04/13/18 Multivitamin with Minerals (Multivitamins with Minerals) 1 Each Tablet, 1 EACH PO Q9AM, TAB 04/13/18 Amlodipine Besylate* (Norvasc*) 5 Mg Tablet, 5 MG PO Q9AM, TAB HOLD IF SBP<118 04/13/18 Amiodarone Hcl* (Amiodarone Hcl*) 100 Mg Tablet, 100 MG PO QHS, #30 TAB HOLD IF HR<60 04/13/18 Na Phos,M-B/Na Phos,Di-Ba (Fleet Enema Extra) 230 Ml Enema, 230 ML RC NEEDED, ENEMA 04/13/18 Acetaminophen* (Tylenol*) 325 Mg Tablet, 650 MG PO Q4H PRN for MILD PAIN LEVEL 1-3, TAB AND FEVER>100F 04/13/18 Magnesium Hydroxide* (Milk Of Magnesia*) 400 Mg/5 Ml Oral.susp, 30 ML PO QHS PRN for NEEDED, ML 04/13/18 Bisacodyl* (Bisacodyl*) 5 Mg Tablet.dr, 10 MG PO DAILY PRN for CONSTIPATION, TAB 04/13/18 Medications Current Medications Sodium Chloride 1,000 ml @ 60 mls/hr [id number] IV Last administered on 07/25/18at 23:46; Admin Dose 100 MLS/HR; Start 07/25/18 at 22:43 IV Flush (NS 3 ml) 3 ml PER PROTOCOL IV ; Start 07/25/18 at 23:00 Ondansetron HCl (Zofran Inj) 4 mg Q6H PRN IV NAUSEA/VOMITING; Start 07/25/18 at 23:00 Acetaminophen (Tylenol Tab) 650 mg Q6H PRN PO .PAIN 1-3 OR TEMP; Start 07/25/18 at 23:00 Morphine Sulfate (morphine) 2 mg Q4H PRN IV .PAIN 7-10; Start 07/25/18 at 23:00 Famotidine (Pepcid Iv) 20 mg Q12 IV Last administered on 07/26/18at 09:00; Admin Dose 20 MG; Start 07/26/18 at 09:00 Enoxaparin Sodium (Lovenox) 30 mg DAILY SC Last administered on 07/26/18at 09:28; Admin Dose 30 MG; Start 07/26/18 at 09:00 Cefepime HCl 50 ml @ 100 mls/hr Q8 IVPB Last administered on 07/26/18at 06:00; Admin Dose 100 MLS/HR; Start 07/26/18 at 06:00 Vancomycin HCl (Vanco Iv Per Pharmacy) VANCOMYCIN PER PHARMACY PER PROTOCOL XX ; Start 07/25/18 at 23:00 Vancomycin HCl 250 ml @ 125 mls/hr Q12H IVPB Last administered on 07/26/18at 08:57; Admin Dose 125 MLS/HR; Start 07/26/18 at 09:00 Miscellaneous Information (Pending [facility]yl Order For Wound Care) This patient fajardo... PRN PRN XX WOUND CARE; Start 07/26/18 at 06:00 Acetaminophen (Tylenol Tab) 650 mg Q4H PRN PO MILD PAIN LEVEL 1-3; Start 07/26 at 11:00 Amiodarone HCl (Cordarone) 100 mg QHS PO ; Start 07/26/18 at 21:00 Amiodarone HCl (Cordarone) 200 mg QAM PO ; Start 07/26/18 at 13:00 Amlodipine Besylate (Norvasc) 5 mg DAILY PO ; Start 07/26/18 at 13:00 Aspirin (Halfprin) 81 mg DAILY PO ; Start 07/26/18 at 13:00 Bisacodyl (Dulcolax) 10 mg DAILY PRN PO CONSTIPATION; Start 07/26/18 at 11:00 Calcium/Vitamin D (Oyster Shell/ Vit-D (500/200)) 1 tab DAILY PO ; Start 07/26/18 at 13:00 Furosemide (Lasix) 10 mg DAILY PO ; Start 07/26/18 at 13:00 Hydrochlorothiazide (Hydrochlorothiazide) 50 mg DAILY PO ; Start 07/26/18 at 13:00 Lisinopril (Zestril) 40 mg DAILY@1400 PO ; Start 07/26/18 at 16:00 Magnesium Hydroxide (Milk Of Mag) 30 ml QHS PRN PO CONSTIPATION; Start 07/26/18 at 11:00 Memantine (Namenda) 5 mg BID PO ; Start 07/26/18 at 13:00 Nitroglycerin (Nitroglycerin (Sl Tab) 0.4 Mg) 1 tab Q5M PRN SL CHEST PAIN; Start 07/26/18 at 11:00 Saccharomyces Boulardii (Florastor) 250 mg BID PO ; Start 07/26/18 at 13:00 Terazosin HCl (Hytrin) 1 mg HS PO ; Start 07/26/18 at 21:00 Valproate Sodium (Depakene Liquid Cup) 125 mg DAILY PO ; Start 07/26/18 at 13:00 Valproate Sodium (Depakene Liquid Cup) 250 mg QPM PO ; Start 07/26/18 at 21:00 Allergies: Coded Allergies: No Known Allergy (Unverified , 04/26/18) Past Surgical History G-tube placement Past Surgical Hx: other Social History Smoking Status: Unknown if ever smoked Exam/Review of Systems Exam Vitals Vital Signs Date Temp Pulse Resp B/P (MAP) Pulse Ox O2 O2 Flow FiO2 Time Delivery Rate 07/26/18 80 08:59 07/26/18 98.8 18 128/60 97 07:52 (82) 07/26/18 Room Air 04:07 Nasal Cannula 07/26/18 2.0 02:00 Intake and Output 07/25/18 07/25/18 07/26/18 1414:59 22:59 06:59 IntakeIntake Total 2050 ml 250 ml BalanceBalance 2050 ml 250 ml Exam weakly palpable pulses Absent protective sensations. Pain at ulceration sites bilateral knee contractures noted Left lateral 5th metatarsal base gangrenous ulcer 4 x 5cm indeterminate depth with mild purulence noted Right medial 1st MPJ ulcer 2 x 2cm fibronecrotic ulcer right medial midfoot 5 x 7cm indeterminate depth fibronecrotic wound bed with fluctuance appreciated and boggy appearance. Right lateral 5th MPJ 3 x 3cm indeterminate depth dry gangrene Right lateral 5th met base 6 x 4 x 0.5cm with surrounding dry gangrene with central granular and fibrotic wound bed Right lateral malleolus 3 x 3 x 0.3cm fibrogranular wound bed Right heel 9 x 4cm indeterminate depth which extends to the lateral aspect of the heel, dry gangrene Foul odor noted to right foot ulceration sites Non invasive arterial studies IMPRESSION: 1. No focal hemodynamically significant stenosis. 2. Blunted waveforms in the distal bilateral lower extremities compatible with vascular resistance. R foot x-ray IMPRESSION: 1. Soft tissue ulcer overlying the first metatarsal phalangeal joint medially. 2. Atherosclerosis. 3. Possible lytic lesion of the base of the fifth metatarsal laterally. Correlation with MRI advised. 4. Otherwise unremarkable images of the right foot. L foot x-ray IMPRESSION: 1. Atherosclerosis. 2. Otherwise unremarkable images of the left foot. Results Result Diagram: 07/26/18 0532 07/26/18 0532 Results 24hrs Laboratory Tests Test 07/25/18 20:10 07/25/18 20:17 07/25/18 21:10 07/25/18 22:36 White Blood Count 20.3 #H Red Blood Count 4.06 L Hemoglobin 11.3 L Hematocrit 36.8 L Mean Corpuscular 90.6 Volume Mean Corpuscular 27.8 L Hemoglobin Mean Corpuscular 30.7 L Hemoglobin Concent Red Cell 16.4 H Distribution Width Platelet Count 481 #H Mean Platelet Volume 11.1 H Immature 5.100 H Granulocytes % Neutrophils % Segmented 80 H Neutrophils % (Manual) Band Neutrophils % 4 (Manual) Lymphocytes % Lymphocytes % 7 L (Manual) Monocytes % Monocytes % (Manual) 5 Eosinophils % Basophils % Metamyelocytes % 1 H (manual) Myelocytes % 2 H (Manual) Nucleated Red Blood 0.0 Cells % Immature 1.030 H Granulocytes # Neutrophils # Neutrophils # 16.4 H (Manual) Band Neutrophils # 0.8 H Lymphocytes (Manual) 1.4 Lymphocytes # Monocytes # Monocytes # (Manual) 1.0 H Eosinophils # Basophils # Metamyelocytes # 0.2 H Myelocytes # 0.4 H Nucleated Red Blood Cells # Platelet Estimate INCREASED Polychromasia 3+ Poikilocytosis 1+ Anisocytosis 2+ Microcytosis 2+ Erythrocyte 115 H Sedimentation Rate Prothrombin Time 15.2 H Prothrombin Time 1.2 Ratio INR International 1.19 Normalized Ratio Activated 30.5 Partial Thromboplast Time Sodium Level 148 H Potassium Level 4.0 Chloride Level 115 H Carbon Dioxide Level 29 Anion Gap 4 L Blood Urea Nitrogen 26 H Creatinine 0.58 L Est Glomerular Filtrat Rate mL/min Glucose Level 219 Calcium Level 8.6 Total Bilirubin 0.4 Direct Bilirubin 0.00 Indirect Bilirubin 0.4 Aspartate Amino 23 Transf (AST/SGOT) Alanine 15 Aminotransferase (AL T/SGPT) Alkaline Phosphatase 86 Troponin I 0.179 *H 0.184 *H C-Reactive Protein 19.0 H Total Protein 6.6 Albumin 2.9 L Globulin 3.70 H Albumin/Globulin 0.78 Ratio POC Venous Lactate 1.4 Urine Color ZHENG Urine Clarity CLOUDY A Urine pH 8.0 Urine Specific 1.025 [place] Urine Ketones NEGATIVE Urine Nitrite NEGATIVE Urine Bilirubin NEGATIVE Urine Urobilinogen 1+ H Urine Leukocyte 2+ H Esterase Urine Microscopic > 182 H RBC Urine Microscopic > 182 H WBC Urine Squamous MANY A Epithelial Cells Urine Yeast MODERATE A (Budding) Urine Hemoglobin 3+ H Urine Glucose NEGATIVE Urine Total Protein 2+ H Lactic Acid Level 2.0 Creatine Kinase 53 Creatine Kinase 1.1 Index Creatinine Kinase MB 0.57 (Mass) Test 07/26/18 01:04 07/26/18 05:32 Lactic Acid Level 1.0 White Blood Count 20.7 H Red Blood Count 3.61 L Hemoglobin 10.1 L Hematocrit 34.2 L Mean Corpuscular 94.7 Volume Mean Corpuscular 28.0 L Hemoglobin Mean Corpuscular 29.5 L Hemoglobin Concent Red Cell 16.2 H Distribution Width Platelet Count 399 Mean Platelet Volume 11.2 H Immature 5.600 H Granulocytes % Neutrophils % Segmented 75 Neutrophils % (Manual) Band Neutrophils % 4 (Manual) Lymphocytes % Lymphocytes % 5 L (Manual) Reactive Lymphocytes 4 H % (Manual) Monocytes % Monocytes % (Manual) 5 Eosinophils % Eosinophils % 2 (Manual) Basophils % Metamyelocytes % 2 H (manual) Myelocytes % 3 H (Manual) Nucleated Red Blood 0.0 Cells % Immature 1.150 H Granulocytes # Neutrophils # Neutrophils # 15.7 H (Manual) Band Neutrophils # 0.8 H Lymphocytes (Manual) 1.0 Lymphocytes # Reactive Lymphocytes 0.8 H # Monocytes # Monocytes # (Manual) 1.0 H Eosinophils # Basophils # Metamyelocytes # 0.4 H Myelocytes # 0.6 H Nucleated Red Blood Cells # Platelet Estimate NORMAL Polychromasia 3+ Poikilocytosis 1+ Anisocytosis 2+ Microcytosis 2+ Elliptocytes 1+ Sodium Level 149 H Potassium Level 3.6 Chloride Level 121 H Carbon Dioxide Level 26 Anion Gap 2 L Blood Urea Nitrogen 22 H Creatinine 0.50 L Est Glomerular Filtrat Rate mL/min Glucose Level 173 Hemoglobin A1c 6.5 H Calcium Level 7.9 L Total Bilirubin 0.4 Direct Bilirubin 0.00 Indirect Bilirubin 0.4 Aspartate Amino 20 Transf (AST/SGOT) Alanine 19 Aminotransferase (AL T/SGPT) Alkaline Phosphatase 70 Creatine Kinase 63 Creatine Kinase 2.1 Index Creatinine Kinase MB 1.30 (Mass) Troponin I 0.153 *H Total Protein 5.7 L Albumin 2.6 L Globulin 3.10 Albumin/Globulin 0.83 Ratio Medications Medication Current Medications Sodium Chloride 1,000 ml @ 60 mls/hr [id number] IV Last administered on 07/25/18at 23:46; Admin Dose 100 MLS/HR; Start 07/25/18 at 22:43 IV Flush (NS 3 ml) 3 ml PER PROTOCOL IV ; Start 07/25/18 at 23:00 Ondansetron HCl (Zofran Inj) 4 mg Q6H PRN IV NAUSEA/VOMITING; Start 07/25/18 at 23:00 Acetaminophen (Tylenol Tab) 650 mg Q6H PRN PO .PAIN 1-3 OR TEMP; Start 07/25/18 at 23:00 Morphine Sulfate (morphine) 2 mg Q4H PRN IV .PAIN 7-10; Start 07/25/18 at 23:00 Famotidine (Pepcid Iv) 20 mg Q12 IV Last administered on 07/26/18at 09:00; Admin Dose 20 MG; Start 07/26/18 at 09:00 Enoxaparin Sodium (Lovenox) 30 mg DAILY SC Last administered on 07/26/18at 09:28; Admin Dose 30 MG; Start 07/26/18 at 09:00 Cefepime HCl 50 ml @ 100 mls/hr Q8 IVPB Last administered on 07/26/18at 06:00; Admin Dose 100 MLS/HR; Start 07/26/18 at 06:00 Vancomycin HCl (Vanco Iv Per Pharmacy) VANCOMYCIN PER PHARMACY PER PROTOCOL XX ; Start 07/25/18 at 23:00 Vancomycin HCl 250 ml @ 125 mls/hr Q12H IVPB Last administered on 07/26/18at 08:57; Admin Dose 125 MLS/HR; Start 07/26/18 at 09:00 Miscellaneous Information (Pending [facility] Order For Wound Care) This patient fajardo... PRN PRN XX WOUND CARE; Start 07/26/18 at 06:00 Acetaminophen (Tylenol Tab) 650 mg Q4H PRN PO MILD PAIN LEVEL 1-3; Start 07/26/18 at 11:00 Amiodarone HCl (Cordarone) 100 mg QHS PO ; Start 07/26/18 at 21:00 Amiodarone HCl (Cordarone) 200 mg QAM PO ; Start 07/26/18 at 13:00 Amlodipine Besylate (Norvasc) 5 mg DAILY PO ; Start 07/26/18 at 13:00 Aspirin (Halfprin) 81 mg DAILY PO ; Start 07/26/18 at 13:00 Bisacodyl (Dulcolax) 10 mg DAILY PRN PO CONSTIPATION; Start 07/26/18 at 11:00 Calcium/Vitamin D (Oyster Shell/ Vit-D (500/200)) 1 tab DAILY PO ; Start 07/26/18 at 13:00 Furosemide (Lasix) 10 mg DAILY PO ; Start 07/26/18 at 13:00 Hydrochlorothiazide (Hydrochlorothiazide) 50 mg DAILY PO ; Start 07/26/18 at 13:00 Lisinopril (Zestril) 40 mg DAILY@1400 PO ; Start 07/26/18 at 16:00 Magnesium Hydroxide (Milk Of Mag) 30 ml QHS PRN PO CONSTIPATION; Start 07/26/18 at 11:00 Memantine (Namenda) 5 mg BID PO ; Start 07/26/18 at 13:00 Nitroglycerin (Nitroglycerin (Sl Tab) 0.4 Mg) 1 tab Q5M PRN SL CHEST PAIN; Start 07/26/18 at 11:00 Saccharomyces Boulardii (Florastor) 250 mg BID PO ; Start 07/26/18 at 13:00 Terazosin HCl (Hytrin) 1 mg HS PO ; Start 07/26/18 at 21:00 Valproate Sodium (Depakene Liquid Cup) 125 mg DAILY PO ; Start 07/26/18 at 13:00 Valproate Sodium (Depakene Liquid Cup) 250 mg QPM PO ; Start 07/26/18 at 21:00 SHAHANA TERRAZAS DPM Jul 26, 2018 12:27
[2018-07-26] MEDS ORDERED: GLUCAGON 1 MG INJ IM PRN (14:30)
[2018-07-26] MEDS ORDERED: DEXTROSE 50% 50 ML SYRINGE IV PRN ×2 (14:30)
[2018-07-26] MEDS ORDERED: GLUCOSE GEL 15 GRAM TUBE PO PRN ×2 (14:30)
[2018-07-26] MEDS ORDERED: GLUCOSE GEL 15 GRAM TUBE BUCCAL PRN (14:30)
[2018-07-26] MEDS: VALPROIC ACID LIQUID CUP 250 MG/5 ML CUP PO SCH ×2 (15:30→21:31)
[2018-07-26] MEDS: ASPIRIN (EC) 81 MG TAB PO SCH (15:31)
[2018-07-26] MEDS: FUROSEMIDE 20 MG TAB PO SCH (15:31)
[2018-07-26] MEDS: MEMANTINE 5 MG TAB PO SCH ×2 (15:31→21:32)
[2018-07-26] MEDS: AMIODARONE 200 MG TAB PO SCH ×2 (15:32→21:32)
[2018-07-26] MEDS: HYDROCHLOROTHIAZIDE 25 MG TAB PO SCH (15:32)
[2018-07-26] MEDS: CALCIUM/VITAMIN D (500/200) TAB PO SCH (15:32)
[2018-07-26] MEDS: AMLODIPINE 5 MG TAB PO SCH (15:32)
[2018-07-26] MEDS: SACCHAROMYCES BOULARDII 250 MG CAP PO SCH ×2 (15:32→21:31)
[2018-07-26] MEDS: LISINOPRIL 20 MG TAB PO SCH (16:00)
[2018-07-26] MEDS: INSULIN ASPART [NOVOLOG] 3 ML PEN SC SCH ×2 (18:16→21:00)
--- NOTE | 2018-07-26 19:14 | CONS ---
DATE OF ADMISSION: 07/25/2018 DATE OF CONSULTATION: 07/26/2018 TYPE OF CONSULTATION: Vascular. REFERRING PHYSICIAN: Shahana Terrazas DPM REASON FOR CONSULTATION: Bilateral lower extremity gangrene. HISTORY OF PRESENT ILLNESS: This is an 87-year-old severely demented gentleman. He is nonambulatory . He was admitted with probably pneumonia or UTI. He was found to have extensive gangrene of the ri ght foot and sort of moderate gangrene and ulceration of the left foot. He is completely nonverbal a nd he is severely contracted at the knee and hip. His knees are just going straight up. It cannot b e straightened out. He has just sort of lies there and moans continuously. I am unable to get any h istory from him. The history has gotten from the chart. He is a [facility] patient who has been a [place]. PAST MEDICAL HISTORY: Again significant for advanced severe dementia, recurrent sepsis. MEDICATIONS: He is takin. Antihypertensive medications. 2. Amiodarone. 3. Lisinopril. 4. Hydrochlorothiazide. 5. Valproic acid. 6. Aspirin. 7. Hytrin. 8. Lasix. 9. Namenda. 10. He is also now getting cefepime. 11. Vancomycin. SOCIAL HISTORY: Unknown. PAST SURGICAL HISTORY: Unknown. It is not clear if he has had any surgeries in the past. FAMILY HISTORY: Unknown. REVIEW OF SYSTEMS: Unobtainable. He is just nonverbal and does not respond to any questioning. PHYSICAL EXAMINATION GENERAL: He is an elderly, severely demented gentleman. He is just kind of lying there and moaning continuously. VITAL SIGNS: He has been afebrile. His blood pressure is 128/60, heart rate is 88, respiratory rate is 18. He is 97% sat on room air. PERIPHERAL VASCULAR: He has 2+ carotid, radial and brachial pulses bilaterally. LUNGS: Clear. HEART: Regular rate and rhythm. ABDOMEN: Soft, nontender, nondistended. EXTREMITIES: I cannot feel pulses in the lower extremities, femoral, popliteal, DP or PT bilaterally . There are no palpable pulses, but he is severely contracted. He kind of moves around, so it is fajardo rd to examine him. As I said, his knees and hips are severely contracted. His knees will straight u p when he is on his back. He has been lying on his side for continuously. He has extensive gangrene of the right foot with large necrotic heel ulcer and multiple wounds on the lateral aspect of the fo ot. The medial aspect of the right foot is just all necrotic and draining foul smelling fluid. In t he left foot, there is a breakdown over the 5th metatarsal laterally, but the heels are intact. Ther e does not look to be anything medially. There is no edema. DIAGNOSTIC DATA: He has some arterial studies that were ordered but are pending. IMPRESSION: Bilateral foot ulcers, extensive gangrene of the right foot and less extensive necrosis in the left lateral foot. He is not candidate for revascularization of any type and I think palliati ve care consult will be in order. We will just do palliative wound care and consider hospice if the family can be contacted. If he is becoming septic and if intervention is needed, he would have just at least a right above knee amputation, possibly bilateral above knee amputations. I am available if there are any further issues. Dictated By: MADDY CASTILLO/DARRIAN Conf#: [id number] DID#: [id number] CC: SHAHANA TERRAZAS DPM; ELVA ORTIZ MD; LORE RIVERA MD; TELLO WHITING MD;*End*
--- NOTE | 2018-07-26 20:29 | RADRPT ---
Echocardiogram Report Patient Name: Giles VILLASEÑOR ID: [id number] : 1930 (87y 10m)Study Date: 07/26/2018 9:56:37 AM Gender: MAccession #: [id number] Tech: DC Location: Ref.Physician: COLE LOWE Height(Cm): BSA: Weight(Kg): Quality: AdequateAccount #: Procedures: Echocardiographic Report: Transthoracic echocardiogram examination. Indications: Chest Pain. Findings: Left Ventricle: The left ventricular ejection fraction is visually estimated at 60 %. Pericardium: Normal pericardium with no significant pericardial effusion. Conclusions: The left ventricular ejection fraction is visually estimated at 60 %. Normal pericardium with no significant pericardial effusion. Electronically Signed By: Boby Castrejon 2018-07-26 20:28:45 PDT
[2018-07-26] MEDS: TERAZOSIN 1 MG CAP PO SCH (21:32)
[2018-07-26] MEDS: METOPROLOL 25 MG TAB PO SCH (21:32)
--- NOTE | 2018-07-26 22:44 | CONS ---
DATE OF ADMISSION: 07/25/2018 DATE OF CONSULTATION: 07/26/2018 REASON FOR CONSULTATION: Positive troponin. REQUESTING PHYSICIAN: Dr. Ortiz. HISTORY OF PRESENT ILLNESS: The patient is an 87-year-old male with a history of cardiac arrhythmia, on amiodarone, hypertension, benign prostatic hypertrophy, dementia, dysphagia status post G-tube, s eizure disorder, psychiatric disorder, gastroesophageal reflux disease, diabetes mellitus, peripheral arterial disease who presented from a [facility] with bilateral foot wounds and additionally wa s found to have fever. Upon arrival, temperature of 102.2, blood pressure 138/88, pulse 101, respira tion 19, sat 97%. The patient's labs are notable for a sodium 148, potassium 4.0, creatinine 0.5, BU N 26. Troponin 0.179. CRP of 19. UA positive. The patient underwent a chest x-ray revealing uncha nged small patchy right lower lobe infiltrate and atelectasis. A foot x-ray revealed unremarkable im ages of the left foot. With the right foot revealing soft tissue ulcer overlying the first metatarso phalangeal joint, possible lytic lesion at the base of the fifth metatarsal and lower extremity arter ial ultrasound revealing no focal hemodynamically significant stenosis, blunted waveforms in distal b ilateral lower extremities. The patient does not have electrocardiogram in chart for my review at th is time. The patient has been admitted to the floor and since admit to floor has been monitored on t elemetry revealing sinus rhythm, no bouts of atrial fibrillation at this time. PAST MEDICAL HISTORY: As above in HPI. MEDICATIONS CURRENTLY IN HOSPITAL: 1. Vancomycin. 2. Collagenase. 3. Amiodarone 100 mg at bedtime. 4. Terazosin 1 mg at bedtime. 5. Depakene. 6. Zestril 40 mg daily. 7. Norvasc 5 mg daily. 8. Aspirin 81 daily. 9. Lasix 10 mg daily. 10. Hydrochlorothiazide 50 mg. 11. Namenda 5 mg b.i.d. 12. Valproic acid. 13. Dulcolax. 14. Pepcid. 15. Lovenox 500 mg daily. 16. Cefepime. 17. Vancomycin. ALLERGIES: NO KNOWN DRUG ALLERGIES. SOCIAL HISTORY: No current tobacco, ETOH or illicit drug use. FAMILY HISTORY: No sudden cardiac or early CAD. REVIEW OF SYSTEMS: As above. CONSTITUTIONAL: No fevers, chills. PULMONARY: No current sign of respiratory compromise. GASTROINTESTINAL: Dysphagia. GENITOURINARY: No hematuria. MUSCULOSKELETAL: Degenerative joint disease. Lower extremity wound. PSYCHIATRIC: Positive psych history. NEUROLOGIC: Dementia. PHYSICAL EXAMINATION: VITAL SIGNS: Temperature 98.8, blood pressure 120/60, pulse 88, respirations 18, satting 97%. GENERAL: The patient is alert, awake. Appears slightly confused. NECK: JVP approximately 8-9 cm water. CHEST: Fair movement throughout, decreased breath sounds at base bilaterally. HEART: Regular rate and rhythm. Normal S1, S2, I/ systolic murmur. Nondisplaced PMI. ABDOMEN: Positive bowel sounds, soft, positive G-tube. EXTREMITIES: Contracted, covered by dressing. Difficult to have distal pulses bilateral posterior t ibial. LABORATORY DATA: As above in HPI, with most recent from today troponin returning mildly trended up f rom 0.1790 to 0.184. White blood count 20.7, hemoglobin 10.1, platelet count 399. IMAGING STUDIES: As above in HPI. No further imaging studies for my review at this time. ELECTROCARDIOGRAM: No electrocardiograms for my review at this time. IMPRESSION: 1. Positive troponin, assess significance, assess for true acute coronary syndrome. 2. Hypertension, under reasonable control. 3. History of atrial fibrillation, currently in sinus rhythm. 4. Lower extremity wound with possible osteomyelitis of the toe. 5. Benign prostatic hypertrophy. 6. Anemia. 7. Leukocytosis. 8. Urinary tract infection. 9. Hyponatremia. RECOMMENDATIONS: 1. At this time, we would maintain patient on telemetry monitoring to follow rhythm and rate control closely. 2. Continue to trend the patient's cardiac enzymes, assess for any significant ongoing cardiac damag e and continue the patient's aspirin at this time and check a 2D echo for this patient's ejection fra ction, wall motion or any major valve abnormalities. 3. Continue the patient's current Zestril, as well as Norvasc, control blood pressure and will initi ate the patient on low dose beta alexys in the setting of positive troponins. 4. Check a fasting lipid panel and initiate statin therapy as necessary. 5. Continue the patient's amiodarone in an attempt to maintain sinus rhythm at this time, continue p glo's antibiotics and follow up all culture data. 6. Ongoing evaluation of the patient's lower extremity wounds. Thank you for allowing me to take part in the care of this patient. I will continue to follow along very closely with you. Further recommendations will be made as the patient progresses through his in patient hospital clinical course. Dictated By: MADDY MENENDEZ/DARRIAN Conf#: [id number] DID#: [id number] CC: LORE RIVERA MD; ELVA ORTIZ MD; TELLO WHITING MD;*EndCC*
[2018-07-26] MEDS: BALSAM PERU/CASTOR OIL 60 GM TUBE TOP SCH (23:30)
[2018-07-27] VITALS (11 sets, daily range): BP systolic 103–119; BP diastolic 50–64; PULSE 71–86; RESP 20–22
[2018-07-27] MEDS: SOD CHLORIDE 0.9% 1,000 ML IV SCH ×3 (00:08→22:31)
[2018-07-27] MEDS: ACCUCHECK AT 2AM (Patients on SS coverage) XX SCH (02:00)
[2018-07-27] MEDS: CEFEPIME 2GM/50 ML (PMX) 50 ML IVPB SCH ×3 (06:37→22:55)
[2018-07-27] MEDS: FAMOTIDINE 20 MG INJ IV SCH ×2 (08:25→22:57)
[2018-07-27] MEDS: VALPROIC ACID LIQUID CUP 250 MG/5 ML CUP PO SCH ×2 (08:26→22:55)
[2018-07-27] MEDS: AMIODARONE 200 MG TAB PO SCH ×2 (08:26→22:56)
[2018-07-27] MEDS: CALCIUM/VITAMIN D (500/200) TAB PO SCH (08:26)
[2018-07-27] MEDS: HYDROCHLOROTHIAZIDE 25 MG TAB PO SCH (08:26)
[2018-07-27] MEDS: MEMANTINE 5 MG TAB PO SCH ×2 (08:26→22:55)
[2018-07-27] MEDS: BALSAM PERU/CASTOR OIL 60 GM TUBE TOP SCH ×2 (08:27→22:57)
[2018-07-27] MEDS: ASPIRIN (EC) 81 MG TAB PO SCH (08:27)
[2018-07-27] MEDS: AMLODIPINE 5 MG TAB PO SCH (08:27)
[2018-07-27] MEDS: FUROSEMIDE 20 MG TAB PO SCH (08:27)
[2018-07-27] MEDS: ENOXAPARIN 30 MG/0.3 ML SYG SC SCH (08:29)
[2018-07-27] MEDS: METOPROLOL 25 MG TAB PO SCH ×2 (08:34→22:57)
[2018-07-27] MEDS: SACCHAROMYCES BOULARDII 250 MG CAP PO SCH ×2 (08:34→22:55)
[2018-07-27] MEDS: DAKINS 0.0125%(1/40) 473 ML SOLUTION TP SCH (08:36)
[2018-07-27] MEDS: COLLAGENASE 5 GM (UD JAR) TOP SCH (08:36)
[2018-07-27] MEDS: INSULIN ASPART [NOVOLOG] 3 ML PEN SC SCH ×4 (09:42→22:29)
--- NOTE | 2018-07-27 11:05 | CONS ---
Consult Date/Type/Reason Admit Date/Time Jul 25, 2018 at 22:41 Initial Consult Date 07/26/18 Type of Consult Pulmonary Date/Time of Note DATE: 07/27/18 TIME: 11:04 Subjective Patient confused this morning no respiratory distress. Objective Vital Signs Date Temp Pulse Resp B/P (MAP) Pulse Ox O2 O2 Flow FiO2 Time Delivery Rate 07/27/18 79 08:16 07/27/18 98.3 20 119/51 99 07:34 (73) 07/26/18 Nasal 2.0 21:30 Cannula Intake and Output 07/26/18 07/26/18 07/27/18 1515:00 23:00 07:00 IntakeIntake Total 300 ml 2180 ml OutputOutput Total 1650 ml BalanceBalance 300 ml 530 ml Exam GENERAL: Elderly appearing gentleman comfortable at rest no acute distress VITAL SIGNS: per chart NECK: Supple. No JVD or lymphadenopathy. CARDIAC EXAM: S1, S2. No added sounds or murmurs. CHEST: Diminished air entry both bases ABDOMEN: Soft, nontender. No guarding or rebound. EXTREMITIES: No cyanosis, clubbing or edema. NEUROLOGIC: Generalized weakness. No focal deficits. Results/Medications Result Diagram: 07/27/18 0703 07/27/18 0702 Results 24 hrs Laboratory Tests Test 07/26/18 18:09 07/26/18 21:25 07/27/18 07:02 07/27/18 07:03 Bedside Glucose 162 172 Sodium Level 148 H Potassium Level 3.5 Chloride Level 114 H Carbon Dioxide Level 26 Anion Gap 8 Blood Urea Nitrogen 22 H Creatinine 0.52 L Est Glomerular Filtrat Rate mL/min Glucose Level 194 Calcium Level 8.3 L Triglycerides Level 210 H Cholesterol Level 112 LDL Cholesterol, 53 Calculated HDL Cholesterol 17 L Cholesterol/HDL 6.5 Ratio Thyroid Stimulating 2.100 Hormone (TSH) White Blood Count 16.2 #H Red Blood Count 3.81 L Hemoglobin 10.6 L Hematocrit 35.4 L Mean Corpuscular 92.9 Volume Mean Corpuscular 27.8 L Hemoglobin Mean Corpuscular 29.9 L Hemoglobin Concent Red Cell 15.8 H Distribution Width Platelet Count 434 H Mean Platelet Volume 11.3 H Immature 4.900 H Granulocytes % Neutrophils % 79.1 H Lymphocytes % 8.1 L Monocytes % 4.8 Eosinophils % 2.3 Basophils % 0.8 Nucleated Red Blood 0.0 Cells % Immature 0.800 H Granulocytes # Neutrophils # 12.8 H Lymphocytes # 1.3 Monocytes # 0.8 Eosinophils # 0.4 Basophils # 0.1 Nucleated Red Blood 0.0 Cells # Creatine Kinase 56 Creatine Kinase 3.5 Index Creatinine Kinase MB 1.96 (Mass) Troponin I 0.097 Valproic Acid 16 L (Depakene) Level Test 07/27/18 09:35 Bedside Glucose 218 Medications Current Medications Sodium Chloride 1,000 ml @ 60 mls/hr [id number] IV Last administered on 07/27/18at 00:08; Admin Dose 60 MLS/HR; Start 07/25/18 at 22:43 IV Flush (NS 3 ml) 3 ml PER PROTOCOL IV ; Start 07/25/18 at 23:00 Ondansetron HCl (Zofran Inj) 4 mg Q6H PRN IV NAUSEA/VOMITING; Start 07/25/18 at 23:00 Acetaminophen (Tylenol Tab) 650 mg Q6H PRN PO .PAIN 1-3 OR TEMP; Start 07/25/18 at 23:00 Morphine Sulfate (morphine) 2 mg Q4H PRN IV .PAIN 7-10; Start 07/25/18 at 23:00 Famotidine (Pepcid Iv) 20 mg Q12 IV Last administered on 07/27/18at 08:25; Admin Dose 20 MG; Start 07/26/18 at 09:00 Enoxaparin Sodium (Lovenox) 30 mg DAILY SC Last administered on 07/27/18at 08:29; Admin Dose 30 MG; Start 07/26/18 at 09:00 Cefepime HCl 50 ml @ 100 mls/hr Q8 IVPB Last administered on 07/27/18at 06:37; Admin Dose 100 MLS/HR; Start 07/26/18 at 06:00 Vancomycin HCl (Vanco Iv Per Pharmacy) VANCOMYCIN PER PHARMACY PER PROTOCOL XX ; Start 07/25/18 at 23:00 Miscellaneous Information (Pending Santyl Order For Wound Care) This patient fajardo... PRN PRN XX WOUND CARE; Start 07/26/18 at 06:00 Acetaminophen (Tylenol Tab) 650 mg Q4H PRN PO MILD PAIN LEVEL 1-3; Start 07/26/18 at 11:00 Amiodarone HCl (Cordarone) 100 mg QHS PO Last administered on 07/26/18 21:32; Admin Dose 100 MG; Start 07/26/18 at 21:00 Amiodarone HCl (Cordarone) 200 mg QAM PO Last administered on 07/27/18 08:26; Admin Dose 200 MG; Start 07/26/18 at 13:00 Amlodipine Besylate (Norvasc) 5 mg DAILY PO Last administered on 07/27/18 08:27; Admin Dose 5 MG; Start 07/26/18 at 13:00 Aspirin (Halfprin) 81 mg DAILY PO Last administered on 07/27/18 08:27; Admin Dose 81 MG; Start 07/26/18 at 13:00 Bisacodyl (Dulcolax) 10 mg DAILY PRN PO CONSTIPATION; Start 07/26/18 at 11:00 Calcium/Vitamin D (Oyster Shell/ Vit-D (500/200)) 1 tab DAILY PO Last administered on 07/27/18 08:26; Admin Dose 1 TAB; Start 07/26/18 at 13:00 Furosemide (Lasix) 10 mg DAILY PO Last administered on 07/27/18 08:27; Admin Dose 10 MG; Start 07/26/18 at 13:00 Hydrochlorothiazide (Hydrochlorothiazide) 50 mg DAILY PO Last administered on 07/27/18 08:26; Admin Dose 50 MG; Start 07/26/18 at 13:00 Lisinopril (Zestril) 40 mg DAILY@1400 PO Last administered on 07/26/18 16:00; Admin Dose 40 MG; Start 07/26/18 at 16:00 Magnesium Hydroxide (Milk Of Mag) 30 ml QHS PRN PO CONSTIPATION; Start 07/26/18 at 11:00 Memantine (Namenda) 5 mg BID PO Last administered on 07/27/18 08:26; Admin Dose 5 MG; Start 07/26/18 at 13:00 Nitroglycerin (Nitroglycerin (Sl Tab) 0.4 Mg) 1 tab Q5M PRN SL CHEST PAIN; Start 07/26/18 at 11:00 Saccharomyces Boulardii (Florastor) 250 mg BID PO Last administered on 07/27/18 08:34; Admin Dose 250 MG; Start 07/26/18 at 13:00 Terazosin HCl (Hytrin) 1 mg HS PO Last administered on 07/26/18at 21:32; Admin Dose 1 MG; Start 07/26/18 at 21:00 Valproate Sodium (Depakene Liquid Cup) 125 mg DAILY PO Last administered on 07/27/18 08:26; Admin Dose 125 MG; Start 07/26/18 at 13:00 Valproate Sodium (Depakene Liquid Cup) 250 mg QPM PO Last administered on 07/26/18at 21:31; Admin Dose 250 MG; Start 07/26/18 at 21:00 Vancomycin HCl 1.25 gm/Sodium Chloride 250 ml @ 83.333 mls/ hr Q24H IVPB ; Start 07/27/18 at 09:00 Sodium Hypochlorite (Dakins Diluted ()) 1 applic DAILY TP Last administered on 07/27/18 08:36; Admin Dose 1 APPLIC; Start 07/27/18 at 09:00 Collagenase (Santyl) 1 applic DAILY TOP Last administered on 07/27/18 08:36; Admin Dose 1 APPLIC; Start 07/27/18 at 09:00 Insulin Aspart (Novolog Insulin Pen) NOVOLOG *MILD* ALGORITHM WITH MEALS BEDTIME SC Last administered on 07/27/18 09:42; Admin Dose 2 UNIT; Start 07/26/18 at 17:55 Miscellaneous Information 1 ea NOTE XX ; Start 07/26/18 at 14:30 Glucose (Glutose) 15 gm Q15M PRN PO DECREASED GLUCOSE; Start 07/26/18 at 14:30 Glucose (Glutose) 22.5 gm Q15M PRN PO DECREASED GLUCOSE; Start 07/26/18 at 14:30 Dextrose (D50w Syringe) 25 ml Q15M PRN IV DECREASED GLUCOSE; Start 07/26/18 at 14:30 Dextrose (D50w Syringe) 50 ml Q15M PRN IV DECREASED GLUCOSE; Start 07/26/18 at 14:30 Glucagon (Glucagen) 1 mg Q15M PRN IM DECREASED GLUCOSE; Start 07/26/18 at 14:30 Glucose (Glutose) 15 gm Q15M PRN BUCCAL DECREASED GLUCOSE; Start 07/26/18 at 14:30 Diagnostic Test (Pha) (Accu-Chek) 1 ea 02 XX ; Start 07/27/18 at 02:00 Metoprolol Tartrate (Lopressor) 25 mg BID PO Last administered on 07/27/18at 08:34; Admin Dose 25 MG; Start 07/26/18 at 21:00 Assessment/Plan Hospital Course (Demo Recall) Assessment 1. Possible aspiration pneumonitis 2. Advanced dementia 3. acute hypoxemic respiratory failure secondary to above Plan 1. Aspiration precautions 2. Antibiotics per primary team 3. IV fluids to correct hypernatremia DMITRY GARCIA MD, [facility] Jul 27, 2018 11:05
[2018-07-27] MEDS: VANCOMYCIN HCL 1.25 GM in SOD CHLORIDE 0.9% 250 ML IVPB SCH (11:28)
--- NOTE | 2018-07-27 13:08 | CONS ---
Assessment/Plan Assessment/Plan Hospital Course (Demo Recall) ID PROGRESS NOTE CURRENT ABX: DAY # => Vanco IV + Cefepime 07/27/18 0703 07/27/18 0702 POD #1-> s/p Bilateral feet gangrene debridement 07/26/18 24H INTERVAL SUMMARY * Awake, confused, VSS, moaning, wet laryngeal cough -> patient is in moderate distress trying to touch his feet? * Fevers resolved DIAGNOSTIC IMAGING * 07/25/18 CXR: Unchanged mild patchy right lower lobe infiltrate and atelectasis. * 07/26/18 RIGHT FOOT XR:1. Soft tissue ulcer overlying the first metatarsal phalangeal joint medially. 2. Atherosclerosis. 3. Possible lytic lesion of the base of the fifth metatarsal laterally. Correlation with MRI advised. 4. Otherwise unremarkable images of the right foot. * 07/26/18 LEFT FOOT XR: 1. Atherosclerosis.2. Otherwise unremarkable images of the left foot. * 07/26/18 BLEXT ARTERIAL DUPLEX: IMPRESSION: * 1. No focal hemodynamically significant stenosis. * 2. Blunted waveforms in the distal bilateral lower extremities compatible with vascular resistance. * 07/26/18 2D ECHO Conclusions: * The left ventricular ejection fraction is visually estimated at 60 %. * Normal pericardium with no significant pericardial effusion. MICRO/OTHER * * 07/26/18 RIGHT FOOT CX: WOUND CULTURE Preliminary Organism 1 GRAM NEGATIVE DOMINGA QUANTITY 3+ * 07/26/18 LEFT FOOT CX: Pending * 07/25/18 Urine Cx URINE CULTURE Final Organism 1 MIXED GRAM POSITIVE ORGANISMS COLONY COUNT 50,000 - 60,000 CFU/ml * 06/19/18 (+)MRSA Nares PHYSICAL EXAMINATION: GENERAL: VSS, patient is in moderate distress, moaning, wet cough HEENT: AT, NC, anicteric, poor dentition missing majority of teeth NECK: Supple, CHEST: Equal chest rise bilaterally, wet laryngeal cough HEART: Pulse RRR ABDOMEN: Soft / NT EXTREMITIES: Warm, dry == BILATERAL FEET DSG C/D/I SKIN: No rash, no diaphoresis ID ASSESSMENT 87 yo M w/ dementia admit with: Sepsis on admission w/TEMP > 101.0 + HR 105 + Leukocytosis =>RESOLVING * BCx (-) Bilateral foot gangrene: POD #1-> s/p Bilateral feet gangrene debridement 07/26/18 * 07/26/18 RIGHT FOOT CX: WOUND CULTURE Preliminary Organism 1 GRAM NEGATIVE DOMINGA QUANTITY 3+ * 07/26/18 LEFT FOOT CX: Pending Right foot lytic lesion -- QUERY Osteomyelitis ? Cellulitis PAD DM2 with peripheral neuropathy Wet laryngeal cough -- aspiration risk factor Aspiration PNA: 07/25/18 CXR: Unchanged mild patchy right lower lobe infiltrate and atelectasis. Functional quadriplegia == bed bound Decubitus ulcers indeterminate depth Knee contractures (+)MRSA Nares -> 06/19/18 ABX ALLERGIES: KNDA INVASIVES: PIV CURRENT ABX: DAY # => Vanco IV + Cefepime ID RECOMMENDATIONS/PLAN: 1. Repeat MRSA Nares screen -- Add Bactroban to bilateral nares 2. Await micro results pending 3. ASP Precautions 4. Pain medication per primary . Consultation Date/Type/Reason Admit Date/Time Jul 25, 2018 at 22:41 Initial Consult Date 07/26/18 Date/Time of Note DATE: 07/27/18 TIME: 13:07 Exam/Review of Systems Exam Vitals Vital Signs Date Temp Pulse Resp B/P (MAP) Pulse Ox O2 O2 Flow FiO2 Time Delivery Rate 07/27/18 71 12:52 07/27/18 98.0 20 103/50 99 11:32 (67) 07/27/18 Nasal 2.0 08:00 Cannula Intake and Output 07/26/18 07/26/18 07/27/18 1515:00 23:00 07:00 IntakeIntake Total 300 ml 2180 ml OutputOutput Total 1650 ml BalanceBalance 300 ml 530 ml Results Result Diagram: 07/27/18 0703 07/27/18 0702 Results 24hrs Laboratory Tests Test 07/26/18 18:09 07/26/18 21:25 07/27/18 07:02 07/27/18 07:03 Bedside Glucose 162 172 Sodium Level 148 H Potassium Level 3.5 Chloride Level 114 H Carbon Dioxide Level 26 Anion Gap 8 Blood Urea Nitrogen 22 H Creatinine 0.52 L Est Glomerular Filtrat Rate mL/min Glucose Level 194 Calcium Level 8.3 L Triglycerides Level 210 H Cholesterol Level 112 LDL Cholesterol, 53 Calculated HDL Cholesterol 17 L Cholesterol/HDL 6.5 Ratio Thyroid Stimulating 2.100 Hormone (TSH) White Blood Count 16.2 #H Red Blood Count 3.81 L Hemoglobin 10.6 L Hematocrit 35.4 L Mean Corpuscular 92.9 Volume Mean Corpuscular 27.8 L Hemoglobin Mean Corpuscular 29.9 L Hemoglobin Concent Red Cell 15.8 H Distribution Width Platelet Count 434 H Mean Platelet Volume 11.3 H Immature 4.900 H Granulocytes % Neutrophils % 79.1 H Lymphocytes % 8.1 L Monocytes % 4.8 Eosinophils % 2.3 Basophils % 0.8 Nucleated Red Blood 0.0 Cells % Immature 0.800 H Granulocytes # Neutrophils # 12.8 H Lymphocytes # 1.3 Monocytes # 0.8 Eosinophils # 0.4 Basophils # 0.1 Nucleated Red Blood 0.0 Cells # Creatine Kinase 56 Creatine Kinase 3.5 Index Creatinine Kinase MB 1.96 (Mass) Troponin I 0.097 Valproic Acid 16 L (Depakene) Level Test 07/27/18 09:35 07/27/18 11:58 Bedside Glucose 218 233 H Medications Medication Current Medications Sodium Chloride 1,000 ml @ 60 mls/hr [id number] IV Last administered on 07/27/18at 00:08; Admin Dose 60 MLS/HR; Start 07/25/18 at 22:43 IV Flush (NS 3 ml) 3 ml PER PROTOCOL IV ; Start 07/25/18 at 23:00 Ondansetron HCl (Zofran Inj) 4 mg Q6H PRN IV NAUSEA/VOMITING; Start 07/25/18 at 23:00 Acetaminophen (Tylenol Tab) 650 mg Q6H PRN PO .PAIN 1-3 OR TEMP; Start 07/25/18 at 23:00 Morphine Sulfate (morphine) 2 mg Q4H PRN IV .PAIN 7-10; Start 07/25/18 at 23:00 Famotidine (Pepcid Iv) 20 mg Q12 IV Last administered on 07/27/18at 08:25; Admin Dose 20 MG; Start 07/26/18 at 09:00 Enoxaparin Sodium (Lovenox) 30 mg DAILY SC Last administered on 07/27/18at 08:29; Admin Dose 30 MG; Start 07/26/18 at 09:00 Cefepime HCl 50 ml @ 100 mls/hr Q8 IVPB Last administered on 07/27/18at 06:37; Admin Dose 100 MLS/HR; Start 07/26/18 at 06:00 Vancomycin HCl (Vanco Iv Per Pharmacy) VANCOMYCIN PER PHARMACY PER PROTOCOL XX ; Start 07/25/18 at 23:00 [facility] This patient fajardo... PRN PRN XX WOUND CARE; Start 07/26/18 at 06:00 Acetaminophen (Tylenol Tab) 650 mg Q4H PRN PO MILD PAIN LEVEL 1-3; Start 07/26/18 at 11:00 Amiodarone HCl (Cordarone) 100 mg QHS PO Last administered on 07/26/18 21:32; Admin Dose 100 MG; Start 07/26/18 at 21:00 Amiodarone HCl (Cordarone) 200 mg QAM PO Last administered on 07/27/18 08:26; Admin Dose 200 MG; Start 07/26/18 at 13:00 Amlodipine Besylate (Norvasc) 5 mg DAILY PO Last administered on 07/27/18 08:27; Admin Dose 5 MG; Start 07/26/18 at 13:00 Aspirin (Halfprin) 81 mg DAILY PO Last administered on 07/27/18 08:27; Admin Dose 81 MG; Start 07/26/18 at 13:00 Bisacodyl (Dulcolax) 10 mg DAILY PRN PO CONSTIPATION; Start 07/26/18 at 11:00 Calcium/Vitamin D (Oyster Shell/ Vit-D (500/200)) 1 tab DAILY PO Last administered on 07/27/18 08:26; Admin Dose 1 TAB; Start 07/26/18 at 13:00 Furosemide (Lasix) 10 mg DAILY PO Last administered on 07/27/18 08:27; Admin Dose 10 MG; Start 07/26/18 at 13:00 Hydrochlorothiazide (Hydrochlorothiazide) 50 mg DAILY PO Last administered on 07/27/18 08:26; Admin Dose 50 MG; Start 07/26/18 at 13:00 Lisinopril (Zestril) 40 mg DAILY@1400 PO Last administered on 07/26/18 16:00; Admin Dose 40 MG; Start 07/26/18 at 16:00 Magnesium Hydroxide (Milk Of Mag) 30 ml QHS PRN PO CONSTIPATION; Start 07/26/18 at 11:00 Memantine (Namenda) 5 mg BID PO Last administered on 07/27/18 08:26; Admin Dose 5 MG; Start 07/26/18 at 13:00 Nitroglycerin (Nitroglycerin (Sl Tab) 0.4 Mg) 1 tab Q5M PRN SL CHEST PAIN; Start 07/26/18 at 11:00 Saccharomyces Boulardii (Florastor) 250 mg BID PO Last administered on 07/27/18 08:34; Admin Dose 250 MG; Start 07/26/18 at 13:00 Terazosin HCl (Hytrin) 1 mg HS PO Last administered on 07/26/18 21:32; Admin Dose 1 MG; Start 07/26/18 at 21:00 Valproate Sodium (Depakene Liquid Cup) 125 mg DAILY PO Last administered on 07/27/18 08:26; Admin Dose 125 MG; Start 07/26/18 at 13:00 Valproate Sodium (Depakene Liquid Cup) 250 mg QPM PO Last administered on 07/26/18 21:31; Admin Dose 250 MG; Start 07/26/18 at 21:00 Vancomycin HCl 1.25 gm/Sodium Chloride 250 ml @ 83.333 mls/ hr Q24H IVPB Last administered on 07/27/18 11:28; Admin Dose 83.333 MLS/HR; Start 07/27/18 at 09:00 Sodium Hypochlorite (Dakins Diluted (40)) 1 applic DAILY TP Last administered on 07/27/18 08:36; Admin Dose 1 APPLIC; Start 07/27/18 at 09:00 Collagenase (Santyl) 1 applic DAILY TOP Last administered on 07/27/18 08:36; Admin Dose 1 APPLIC; Start 07/27/18 at 09:00 Insulin Aspart (Novolog Insulin Pen) NOVOLOG *MILD* ALGORITHM WITH MEALS BEDTIME SC Last administered on 07/27/18 12:02; Admin Dose 3 UNIT; Start 07/26/18 at 17:55 Miscellaneous Information 1 ea NOTE XX ; Start 07/26/18 at 14:30 Glucose (Glutose) 15 gm Q15M PRN PO DECREASED GLUCOSE; Start 07/26/18 at 14:30 Glucose (Glutose) 22.5 gm Q15M PRN PO DECREASED GLUCOSE; Start 07/26/18 at 14:30 Dextrose (D50w Syringe) 25 ml Q15M PRN IV DECREASED GLUCOSE; Start 07/26/18 at 14:30 Dextrose (D50w Syringe) 50 ml Q15M PRN IV DECREASED GLUCOSE; Start 07/26/18 at 14:30 Glucagon (Glucagen) 1 mg Q15M PRN IM DECREASED GLUCOSE; Start 07/26/18 at 14:30 Glucose (Glutose) 15 gm Q15M PRN BUCCAL DECREASED GLUCOSE; Start 07/26/18 at 14:30 Diagnostic Test (Pha) (Accu-Chek) 1 02 XX ; Start 07/27/18 at 02:00 Metoprolol Tartrate (Lopressor) 25 mg BID PO Last administered on 07/27/18at 08:34; Admin Dose 25 MG; Start 07/26/18 at 21:00 FITO ESTEVEZ NP Jul 27, 2018 13:08
[2018-07-27] MEDS: LISINOPRIL 20 MG TAB PO SCH (13:48)
[2018-07-27] MEDS: MUPIROCIN 2% 22 GM OINT TOP SCH ×2 (17:02→22:55)
[2018-07-27] MEDS: TERAZOSIN 1 MG CAP PO SCH (22:57)
[2018-07-27] MEDS: QUETIAPINE 25 MG TAB GTB SCH (23:52)
[2018-07-28] VITALS (11 sets, daily range): BP systolic 80–121; BP diastolic 46–61; PULSE 71–86; RESP 18–22
[2018-07-28] MEDS: ACCUCHECK AT 2AM (Patients on SS coverage) XX SCH (01:47)
--- NOTE | 2018-07-28 02:21 | PN ---
DATE: 07/27/2018 SUBJECTIVE: Follow up on bilateral foot gangrene, peripheral vascular disease, diabetes, contracture s, dysphagia, and sepsis. The patient remains awake; however, confused. No temperature spike. No r eported vomiting. No reported fever or chills. The patient remains contracted and awake; however, c onfused. The patient is tolerating G-tube feeding well. PHYSICAL EXAMINATION: GENERAL: The patient is awake and alert, sometimes talks to himself. VITAL SIGNS: Temperature 98.3, pulse 83, respiration 20, blood pressure 105/64, O2 saturation 94% on room air. HEENT: No eye discharge. Conjunctivae normal. Oropharynx clear. NECK: Supple. No mass. No thyromegaly. CHEST: Revealed diminished air entry at bases. CARDIOVASCULAR: S1 and S2 normal. No murmur. ABDOMEN: Soft and nontender. G-tube in place. EXTREMITIES: Contracted. Dressing intact on both feet. NEUROLOGIC: The patient is awake, alert, contracted with no useful communication. DIAGNOSTIC EVALUATION: Arterial Doppler studies, no focal hemodynamically significant stenosis. LABORATORY DATA: Done this morning, WBC 16.2, down from 20.7, hemoglobin 10.6, platelet 434. Sodium 148, potassium 3.5, BUN 22, creatinine 0.5, glucose 194, calcium 8.3. LDL 53. TSH 2.1. Wound cult ure is growing gram-negative rods. IMPRESSION: 1. Sepsis due to bilateral foot gangrene status post debridement. Right foot cellulitic lesion, que stionable osteomyelitis. Continue vancomycin and cefepime. 2. Dementia. No agitation. Continue to monitor. Continue Namenda. 3. Peripheral vascular disease. 4. Paroxysmal atrial fibrillation. The patient is currently in sinus rhythm. Continue amiodarone a nd aspirin along with a beta alexys. 5. Dementia with behavioral changes. The patient has been started on Seroquel and Ativan on p.r.n. basis. Continue Depakene also. 6. Diabetes. Blood sugar elevated. We will add Lantus. 7. Contracture. No acute issues. 8. Contraction and bilateral gangrene. The patient was seen by Dr. Horne and recommending no aggres sive treatment. 9. Dysphagia. Continue G-tube feeding. The patient's code status is DNR as per POLST. The patient has a conservator. Further recommendatio n would depend on the patient's hospital course. For deep venous thrombosis prophylaxis, continue Lo venox. For GI prophylaxis, we will discontinue IV Pepcid and put him on Protonix through G-tube. Dictated By: ELVA ORTIZ MD AB/NTS Conf#: [id number] DID#: [id number] CC: LORE RIVERA MD;*EndCC*
[2018-07-28] MEDS ORDERED: PANTOPRAZOLE (EC) 40 MG TAB PO SCH (06:00)
[2018-07-28] MEDS: CEFEPIME 2GM/50 ML (PMX) 50 ML IVPB SCH ×3 (06:40→22:10)
[2018-07-28] MEDS: INSULIN ASPART [NOVOLOG] 3 ML PEN SC SCH ×5 (08:10→21:00)
[2018-07-28] MEDS: ENOXAPARIN 30 MG/0.3 ML SYG SC SCH (08:24)
[2018-07-28] MEDS: INSULIN GLARGINE [LANTus] (100 UNITS/ML) SYG SC SCH (08:24)
[2018-07-28] MEDS: BALSAM PERU/CASTOR OIL 60 GM TUBE TOP SCH ×2 (09:00→21:53)
[2018-07-28] MEDS: COLLAGENASE 5 GM (UD JAR) TOP SCH (09:00)
[2018-07-28] MEDS: DAKINS 0.0125%(1/40) 473 ML SOLUTION TP SCH (09:00)
[2018-07-28] MEDS: METOPROLOL 25 MG TAB PO SCH (09:00)
[2018-07-28] MEDS: VANCOMYCIN HCL 1.25 GM in SOD CHLORIDE 0.9% 250 ML IVPB SCH (09:27)
[2018-07-28] MEDS: QUETIAPINE 25 MG TAB GTB SCH ×2 (09:28→21:54)
[2018-07-28] MEDS: MEMANTINE 5 MG TAB PO SCH (09:28)
[2018-07-28] MEDS: VALPROIC ACID LIQUID CUP 250 MG/5 ML CUP PO SCH (09:28)
[2018-07-28] MEDS: SACCHAROMYCES BOULARDII 250 MG CAP PO SCH (09:28)
[2018-07-28] MEDS: ASPIRIN (EC) 81 MG TAB PO SCH (09:28)
[2018-07-28] MEDS: CALCIUM/VITAMIN D (500/200) TAB PO SCH (09:28)
[2018-07-28] MEDS: FUROSEMIDE 20 MG TAB PO SCH (09:29)
[2018-07-28] MEDS: AMLODIPINE 5 MG TAB PO SCH (09:30)
[2018-07-28] MEDS: AMIODARONE 200 MG TAB PO SCH (09:30)
[2018-07-28] MEDS: MUPIROCIN 2% 22 GM OINT TOP SCH ×2 (09:31→21:53)
--- NOTE | 2018-07-28 12:10 | CONS ---
Consult Date/Type/Reason Admit Date/Time Jul 25, 2018 at 22:41 Initial Consult Date 07/26/18 Type of Consult Pulmonary Date/Time of Note DATE: 07/28/18 TIME: 12:09 Subjective Patient stable this morning no respiratory distress. Objective Vital Signs Date Temp Pulse Resp B/P (MAP) Pulse Ox O2 O2 Flow FiO2 Time Delivery Rate 07/28/18 98.3 76 20 95/51 (66) 96 11:24 07/28/18 Nasal 2.0 08:00 Cannula Intake and Output 07/27/18 07/27/18 07/28/18 1515:00 23:00 07:00 IntakeIntake Total 1030 ml 1890 ml OutputOutput Total 1600 ml 550 ml BalanceBalance -570 ml 1340 ml Exam GENERAL: Elderly appearing gentleman comfortable at rest no acute distress VITAL SIGNS: per chart NECK: Supple. No JVD or lymphadenopathy. CARDIAC EXAM: S1, S2. No added sounds or murmurs. CHEST: Diminished air entry both bases ABDOMEN: Soft, nontender. No guarding or rebound. EXTREMITIES: No cyanosis, clubbing or edema. NEUROLOGIC: Generalized weakness. No focal deficits. Results/Medications Result Diagram: 07/27/18 0703 07/28/18 0605 Results 24 hrs Laboratory Tests Test 07/27/18 16:59 07/27/18 22:25 07/28/18 01:46 07/28/18 06:05 Bedside Glucose 202 192 187 Blood Urea Nitrogen 24 H Creatinine 0.58 L Test 07/28/18 08:05 07/28/18 11:46 Bedside Glucose 202 205 Medications Current Medications Sodium Chloride 1,000 ml @ 60 mls/hr [id number] IV Last administered on 07/27/18at 22:31; Admin Dose 60 MLS/HR; Start 07/25/18 at 22:43 IV Flush (NS 3 ml) 3 ml PER PROTOCOL IV ; Start 07/25/18 at 23:00 Ondansetron HCl (Zofran Inj) 4 mg Q6H PRN IV NAUSEA/VOMITING; Start 07/25/18 at 23:00 Acetaminophen (Tylenol Tab) 650 mg Q6H PRN PO .PAIN 1-3 OR TEMP; Start 07/25/18 at 23:00 Morphine Sulfate (morphine) 2 mg Q4H PRN IV .PAIN 7-10; Start 07/25/18 at 23:00 Enoxaparin Sodium (Lovenox) 30 mg DAILY SC Last administered on 07/28/18 08:24; Admin Dose 30 MG; Start 07/26/18 at 09:00 Cefepime HCl 50 ml @ 100 mls/hr Q8 IVPB Last administered on 07/28/18 06:40; Admin Dose 100 MLS/HR; Start 07/26/18 at 06:00 Vancomycin HCl (Vanco Iv Per Pharmacy) VANCOMYCIN PER PHARMACY PER PROTOCOL XX ; Start 07/25/18 at 23:00 Miscellaneous Information (Pending [facility] Order For Wound Care) This patient fajardo... PRN PRN XX WOUND CARE; Start 07/26/18 at 06:00 Acetaminophen (Tylenol Tab) 650 mg Q4H PRN PO MILD PAIN LEVEL 1-3; Start 07/26/18 at 11:00 Amiodarone HCl (Cordarone) 100 mg QHS PO Last administered on 07/27/18at 22:56; Admin Dose 100 MG; Start 07/26/18 at 21:00 Amiodarone HCl (Cordarone) 200 mg QAM PO Last administered on 07/28/18 09:30; Admin Dose 200 MG; Start 07/26/18 at 13:00 Amlodipine Besylate (Norvasc) 5 mg DAILY PO Last administered on 07/28/18 09:3 0; Admin Dose 5 MG; Start 07/26/18 at 13:00 Aspirin (Halfprin) 81 mg DAILY PO Last administered on 07/28/18 09:28; Admin Dose 81 MG; Start 07/26/18 at 13:00 Bisacodyl (Dulcolax) 10 mg DAILY PRN PO CONSTIPATION; Start 07/26/18 at 11:00 Calcium/Vitamin D (Oyster Shell/ Vit-D (500/200)) 1 tab DAILY PO Last administered on 07/28/18 09:28; Admin Dose 1 TAB; Start 07/26/18 at 13:00 Furosemide (Lasix) 10 mg DAILY PO Last administered on 07/28/18 09:29; Admin Dose 10 MG; Start 07/26/18 at 13:00 Lisinopril (Zestril) 40 mg DAILY@1400 PO Last administered on 07/27/18 13:48; Admin Dose 40 MG; Start 07/26/18 at 16:00 Magnesium Hydroxide (Milk Of Mag) 30 ml QHS PRN PO CONSTIPATION; Start 07/26/18 at 11:00 Memantine (Namenda) 5 mg BID PO Last administered on 07/28/18 09:28; Admin Dose 5 MG; Start 07/26/18 at 13:00 Nitroglycerin (Nitroglycerin (Sl Tab) 0.4 Mg) 1 tab Q5M PRN SL CHEST PAIN; Start 07/26/18 at 11:00 Saccharomyces Boulardii (Florastor) 250 mg BID PO Last administered on 09:28; Admin Dose 250 MG; Start 07/26/18 at 13:00 Terazosin HCl (Hytrin) 1 mg HS PO Last administered on 07/27/18 22:57; Admin Dose 1 MG; Start 07/26/18 at 21:00 Valproate Sodium (Depakene Liquid Cup) 125 mg DAILY PO Last administered on 07/28/18 09:28; Admin Dose 125 MG; Start 07/26/18 at 13:00 Valproate Sodium (Depakene Liquid Cup) 250 mg QPM PO Last administered on 07/27/18 22:55; Admin Dose 250 MG; Start 07/26/18 at 21:00 Vancomycin HCl 1.25 gm/Sodium Chloride 250 ml @ 83.333 mls/ hr Q24H IVPB Last administered on 07/28/18 09:27; Admin Dose 83.333 MLS/HR; Start 07/27/18 at 09 :00 Sodium Hypochlorite (Dakins Diluted ()) 1 applic DAILY TP Last administered on 07/27/18 08:36; Admin Dose 1 APPLIC; Start 07/27/18 at 09:00 Collagenase (Santyl) 1 applic DAILY TOP Last administered on 07/27/18 08:36; Admin Dose 1 APPLIC; Start 07/27/18 at 09:00 Insulin Aspart (Novolog Insulin Pen) NOVOLOG *MILD* ALGORITHM WITH MEALS BEDTIME SC Last administered on 07/28/18 11:51; Admin Dose 2 UNIT; Start 07/26/18 at 17:55 Miscellaneous Information 1 ea NOTE XX ; Start 07/26/18 at 14:30 Glucose (Glutose) 15 gm Q15M PRN PO DECREASED GLUCOSE; Start 07/26/18 at 14:30 Glucose (Glutose) 22.5 gm Q15M PRN PO DECREASED GLUCOSE; Start 07/26/18 at 14:30 Dextrose (D50w Syringe) 25 ml Q15M PRN IV DECREASED GLUCOSE; Start 07/26/18 at 14:30 Dextrose (D50w Syringe) 50 ml Q15M PRN IV DECREASED GLUCOSE; Start 07/26/18 at 14:30 Glucagon (Glucagen) 1 mg Q15M PRN IM DECREASED GLUCOSE; Start 07/26/18 at 14:30 Glucose (Glutose) 15 gm Q15M PRN BUCCAL DECREASED GLUCOSE; Start 07/26/18 at 1 4:30 Diagnostic Test (Pha) (Accu-Chek) 1 ea 02 XX Last administered on 07/28/18at 01:47; Admin Dose 1 EA; Start 07/27/18 at 02:00 Metoprolol Tartrate (Lopressor) 25 mg BID PO Last administered on 07/27/18at 22:57; Admin Dose 25 MG; Start 07/26/18 at 21:00 Mupirocin (Bactroban) 1 applic BID TOP Last administered on 07/28/18at 09:31; Admin Dose 1 APPLIC; Start 07/27/18 at 17:00 Quetiapine Fumarate (Seroquel) 25 mg BID GTB Last administered on 07/28/18at 09:28; Admin Dose 25 MG; Start 07/28/18 at 00:00 Insulin Glargine (Lantus) 10 units DAILY@0800 SC Last administered on 07/28/18at 08:24; Admin Dose 10 UNITS; Start 07/28/18 at 08:00 Pantoprazole (Protonix Tab) 40 mg DAILY@06 PO Last administered on 07/28/18at 06:45; Admin Dose 40 MG; Start 07/28/18 at 06:00 Miscellaneous Information (*Rx Drug Level Order Reminder*) VANCO TROUGH ON @ 800 0800 ONCE XX ; Start 07/29/18 at 08:00; Stop 07/29/18 at 08:01 Assessment/Plan Hospital Course (Demo Recall) Assessment 1. Possible aspiration pneumonitis 2. Advanced dementia 3. acute hypoxemic respiratory failure secondary to above Plan 1. Aspiration precautions 2. Antibiotics per primary team 3. IV fluids to correct hypernatremia Consider transfer to [facility] Consider [place] versus residential facility DMITRY GARCIA MD, [facility] Jul 28, 2018 12:10
[2018-07-28] MEDS: LISINOPRIL 20 MG TAB PO SCH (14:00)
--- NOTE | 2018-07-28 15:53 | CONS ---
Assessment/Plan Assessment/Plan Hospital Course (Demo Recall) ID PROGRESS NOTE CURRENT ABX: DAY # => Vanco IV + Cefepime 07/27/18 0703 07/28/18 0605 POD #2-> s/p Bilateral feet gangrene debridement 07/26/18 24H INTERVAL SUMMARY * Lethargic today -- looks much more comfortable than yesterday when he appeared to be in pain * Afebrile, WBC down today DIAGNOSTIC IMAGING * 07/25/18 CXR: Unchanged mild patchy right lower lobe infiltrate and atelectasis. * 07/26/18 RIGHT FOOT XR:1. Soft tissue ulcer overlying the first metatarsal phalangeal joint medially. 2. Atherosclerosis. 3. Possible lytic lesion of the base of the fifth metatarsal laterally. Correlation with MRI advised. 4. Otherwise unremarkable images of the right foot. * 07/26/18 LEFT FOOT XR: 1. Atherosclerosis.2. Otherwise unremarkable images of the left foot. * 07/26/18 BLEXT ARTERIAL DUPLEX: IMPRESSION: * 1. No focal hemodynamically significant stenosis. * 2. Blunted waveforms in the distal bilateral lower extremities compatible with vascular resistance. * 07/26/18 2D ECHO Conclusions: * The left ventricular ejection fraction is visually estimated at 60 %. * Normal pericardium with no significant pericardial effusion. MICRO/OTHER * * 07/26/18 RIGHT FOOT CX: WOUND CULTURE Preliminary Organism 1 GRAM NEGATIVE DOMINGA QUANTITY 3+ * 07/26/18 LEFT FOOT CX: WOUND CULTURE Preliminary Organism 1 STAPHYLOCOCCUS AUREUS QUANTITY 2+ Organism 2 ENTEROCOCCUS SPECIES QUANTITY ISOLATED FROM BROTH ONLY Organism 3 GRAM NEGATIVE DOMINGA QUANTITY 1+ * 07/25/18 Urine Cx URINE CULTURE Final Organism 1 MIXED GRAM POSITIVE ORGANISMS COLONY COUNT 50,000 - 60,000 CFU/ml * 06/19/18 (+)MRSA Nares PHYSICAL EXAMINATION: GENERAL: VSS, patient is in moderate distress, moaning, wet cough HEENT: AT, NC, anicteric, poor dentition missing majority of teeth NECK: Supple, CHEST: Equal chest rise bilaterally, wet laryngeal cough HEART: Pulse RRR ABDOMEN: Soft / NT EXTREMITIES: Warm, dry == BILATERAL FEET DSG C/D/I SKIN: No rash, no diaphoresis ID ASSESSMENT 87 yo M w/ dementia admit with: Sepsis on admission w/TEMP > 101.0 + HR 105 + Leukocytosis =>RESOLVING * BCx (-) Bilateral foot gangrene: POD #2-> s/p Bilateral feet gangrene debridement 07/26/18 * 07/26/18 RIGHT FOOT CX: WOUND CULTURE Preliminary Organism 1 GRAM NEGATIVE DOMINGA QUANTITY 3+ * 07/26/18 LEFT FOOT CX: WOUND CULTURE Preliminary Organism 1 STAPHYLOCOCCUS AUREUS QUANTITY 2+ Organism 2 ENTEROCOCCUS SPECIES QUANTITY ISOLATED FROM BROTH ONLY Organism 3 GRAM NEGATIVE DOMINGA QUANTITY 1+ Right foot lytic lesion -- QUERY Osteomyelitis ? Cellulitis PAD DM2 with peripheral neuropathy Wet laryngeal cough -- aspiration risk factor Aspiration PNA: 07/25/18 CXR: Unchanged mild patchy right lower lobe infiltrate and atelectasis. Functional quadriplegia == bed bound Decubitus ulcers indeterminate depth Knee contractures (+)MRSA Nares -> 06/19/18 ABX ALLERGIES: KNDA INVASIVES: PIV CURRENT ABX: DAY # => Vanco IV + Cefepime ID RECOMMENDATIONS/PLAN: 1. Repeat MRSA Nares screen pending -- Added Bactroban to bilateral nares 2. Await micro results pending 3. ASP Precautions . Consultation Date/Type/Reason Admit Date/Time Jul 25, 2018 at 22:41 Initial Consult Date 07/26/18 Date/Time of Note DATE: 07/28/18 TIME: 15:48 Exam/Review of Systems Exam Vitals Vital Signs Date Temp Pulse Resp B/P (MAP) Pulse Ox O2 O2 Flow FiO2 Time Delivery Rate 07/28/18 Nasal 2.0 13:11 Cannula 07/28/18 82 12:09 07/28/18 98.3 20 95/51 (66) 96 11:24 Intake and Output 07/27/18 07/27/18 07/28/18 1515:00 23:00 07:00 IntakeIntake Total 1030 ml 1890 ml OutputOutput Total 1600 ml 550 ml BalanceBalance -570 ml 1340 ml Results Result Diagram: 07/27/18 0703 07/28/18 0605 Results 24hrs Laboratory Tests Test 07/27/18 16:59 07/27/18 22:25 07/28/18 01:46 07/28/18 06:05 Bedside Glucose 202 192 187 Blood Urea Nitrogen 24 H Creatinine 0.58 L Test 07/28/18 08:05 07/28/18 11:46 Bedside Glucose 202 205 Medications Medication Current Medications Sodium Chloride 1,000 ml @ 60 mls/hr [id number] IV Last administered on 07/27/18 22:31; Admin Dose 60 MLS/HR; Start 07/25/18 at 22:43 IV Flush (NS 3 ml) 3 ml PER PROTOCOL IV ; Start 07/25/18 at 23:00 Ondansetron HCl (Zofran Inj) 4 mg Q6H PRN IV NAUSEA/VOMITING; Start 07/25/18 at 23:00 Acetaminophen (Tylenol Tab) 650 mg Q6H PRN PO .PAIN 1-3 OR TEMP; Start 07/25/18 at 23:00 Morphine Sulfate (morphine) 2 mg Q4H PRN IV .PAIN 7-10; Start 07/25/18 at 23:00 Enoxaparin Sodium (Lovenox) 30 mg DAILY SC Last administered on 07/28/18 08:24; Admin Dose 30 MG; Start 07/26/18 at 09:00 Cefepime HCl 50 ml @ 100 mls/hr Q8 IVPB Last administered on 07/28/18 14:00; Admin Dose 100 MLS/HR; Start 07/26/18 at 06:00 Vancomycin HCl (Vanco Iv Per Pharmacy) VANCOMYCIN PER PHARMACY PER PROTOCOL XX ; Start 07/25/18 at 23:00 Miscellaneous Information (Pending [facility] Order For Wound Care) This patient fajardo... PRN PRN XX WOUND CARE; Start 07/26/18 at 06:00 Acetaminophen (Tylenol Tab) 650 mg Q4H PRN PO MILD PAIN LEVEL 1-3; Start 07/26/18 at 11:00 Amiodarone HCl (Cordarone) 100 mg QHS PO Last administered on 07/27/18 22:56; Admin Dose 100 MG; Start 07/26/18 at 21:00 Amiodarone HCl (Cordarone) 200 mg QAM PO Last administered on 07/28/18 09:30; Admin Dose 200 MG; Start 07/26/18 at 13:00 Amlodipine Besylate (Norvasc) 5 mg DAILY PO Last administered on 07/28/18 09:30; Admin Dose 5 MG; Start 07/26/18 at 13:00 Aspirin (Halfprin) 81 mg DAILY PO Last administered on 07/28/18 09:28; Admin Dose 81 MG; Start 07/26/18 at 13:00 Bisacodyl (Dulcolax) 10 mg DAILY PRN PO CONSTIPATION; Start 07/26/18 at 11:00 Calcium/Vitamin D (Oyster Shell/ Vit-D (500/200)) 1 tab DAILY PO Last administered on 07/28/18 09:28; Admin Dose 1 TAB; Start 07/26/18 at 13:00 Furosemide (Lasix) 10 mg DAILY PO Last administered on 07/28/18 09:29; Admin Dose 10 MG; Start 07/26/18 at 13:00 Lisinopril (Zestril) 40 mg DAILY@1400 PO Last administered on 07/27/18 13:48; Admin Dose 40 MG; Start 07/26/18 at 16:00 Magnesium Hydroxide (Milk Of Mag) 30 ml QHS PRN PO CONSTIPATION; Start 07/26/18 at 11:00 Memantine (Namenda) 5 mg BID PO Last administered on 07/28/18 09:28; Admin Dose 5 MG; Start 07/26/18 at 13:00 Nitroglycerin (Nitroglycerin (Sl Tab) 0.4 Mg) 1 tab Q5M PRN SL CHEST PAIN; Start 07/26/18 at 11:00 Saccharomyces Boulardii (Florastor) 250 mg BID PO Last administered on 07/28/18 09:28; Admin Dose 250 MG; Start 07/26/18 at 13:00 Terazosin HCl (Hytrin) 1 mg HS PO Last administered on 07/27/18 22:57; Admin Dose 1 MG; Start 07/26/18 at 21:00 Valproate Sodium (Depakene Liquid Cup) 125 mg DAILY PO Last administered on 07/28/18 09:28; Admin Dose 125 MG; Start 07/26/18 at 13:00 Valproate Sodium (Depakene Liquid Cup) 250 mg QPM PO Last administered on 07/27/18 22:55; Admin Dose 250 MG; Start 07/26/18 at 21:00 Vancomycin HCl 1.25 gm/Sodium Chloride 250 ml @ 83.333 mls/ hr Q24H IVPB Last administered on 07/28/18 09:27; Admin Dose 83.333 MLS/HR; Start 07/27/18 at 09:00 Sodium Hypochlorite (Dakins Diluted ()) 1 applic DAILY TP Last administered on 07/27/18at 08:36; Admin Dose 1 APPLIC; Start 07/27/18 at 09:00 Collagenase (Santyl) 1 applic DAILY TOP Last administered on 07/27/18at 08:36; Admin Dose 1 APPLIC; Start 07/27/18 at 09:00 Insulin Aspart (Novolog Insulin Pen) NOVOLOG *MILD* ALGORITHM WITH MEALS BEDTIME SC Last administered on 07/28/18at 11:51; Admin Dose 2 UNIT; Start 07/26/18 at 17:55 Miscellaneous Information 1 ea NOTE XX ; Start 07/26/18 at 14:30 Glucose (Glutose) 15 gm Q15M PRN PO DECREASED GLUCOSE; Start 07/26/18 at 14:30 Glucose (Glutose) 22.5 gm Q15M PRN PO DECREASED GLUCOSE; Start 07/26/18 at 14:30 Dextrose (D50w Syringe) 25 ml Q15M PRN IV DECREASED GLUCOSE; Start 07/26/18 at 14:30 Dextrose (D50w Syringe) 50 ml Q15M PRN IV DECREASED GLUCOSE; Start 07/26/18 at 14:30 Glucagon (Glucagen) 1 mg Q15M PRN IM DECREASED GLUCOSE; Start 07/26/18 at 14:30 Glucose (Glutose) 15 gm Q15M PRN BUCCAL DECREASED GLUCOSE; Start 07/26/18 at 14:30 Diagnostic Test (Pha) (Accu-Chek) 1 ea 02 XX Last administered on 07/28/18at 01:47; Admin Dose 1 EA; Start 07/27/18 at 02:00 Metoprolol Tartrate (Lopressor) 25 mg BID PO Last administered on 07/27/18at 22:57; Admin Dose 25 MG; Start 07/26/18 at 21:00 Mupirocin (Bactroban) 1 applic BID TOP Last administered on 07/28/18 09:31; Admin Dose 1 APPLIC; Start 07/27/18 at 17:00 Quetiapine Fumarate (Seroquel) 25 mg BID GTB Last administered on 07/28/18 09:28; Admin Dose 25 MG; Start 07/28/18 at 00:00 Insulin Glargine (Lantus) 10 units DAILY@0800 SC Last administered on 4/14/19at 08:24; Admin Dose 10 UNITS; Start 07/28/18 at 08:00 Pantoprazole (Protonix Tab) 40 mg DAILY@06 PO Last administered on 07/28/18at 06:45; Admin Dose 40 MG; Start 07/28/18 at 06:00 Miscellaneous Information (*Rx Drug Level Order Reminder*) VANCO TROUGH ON @ 800 0800 ONCE XX ; Start 07/29/18 at 08:00; Stop 07/29/18 at 08:01 FITO ESTEVEZ NP Jul 28, 2018 15:53
[2018-07-28] MEDS: SOD CHLORIDE 0.9% 1,000 ML IV SCH (18:42)
[2018-07-28] MEDS: TERAZOSIN 1 MG CAP GTB SCH (22:07)
[2018-07-28] MEDS: SACCHAROMYCES BOULARDII 250 MG CAP GTB SCH (22:07)
[2018-07-28] MEDS: MEMANTINE 5 MG TAB GTB SCH (22:07)
[2018-07-28] MEDS: VALPROIC ACID LIQUID CUP 250 MG/5 ML CUP GTB SCH (22:07)
[2018-07-28] MEDS: AMIODARONE 200 MG TAB GTB SCH (22:08)
[2018-07-28] MEDS: METOPROLOL 25 MG TAB GTB SCH (22:08)
[2018-07-29 02:00] VITALS: BP 134/76; PULSE 91; RESP 17
[2018-07-29] MEDS: ACCUCHECK AT 2AM (Patients on SS coverage) XX SCH (02:00)
[2018-07-29] MEDS: DAKINS 0.0125%(1/40) 473 ML SOLUTION TP SCH ×2 (03:38→11:54)
[2018-07-29] MEDS: COLLAGENASE 5 GM (UD JAR) TOP SCH ×2 (03:41→11:55)
[2018-07-29] MEDS: CEFEPIME 2GM/50 ML (PMX) 50 ML IVPB SCH ×3 (05:55→23:05)
[2018-07-29] MEDS ORDERED: INSULIN ASPART [NOVOLOG] 3 ML PEN SC SCH (06:00)
[2018-07-29] MEDS: Insulin NOVOLOG SS MILD Algorithm (NPO/TPN/ENTERAL FEEDS) SC SCH ×3 (06:04→17:21)
[2018-07-29 08:27] VITALS: BP 107/57; PULSE 77
[2018-07-29] MEDS: ENOXAPARIN 30 MG/0.3 ML SYG SC SCH (08:32)
[2018-07-29] MEDS: VALPROIC ACID LIQUID CUP 250 MG/5 ML CUP PO SCH (08:32)
[2018-07-29] MEDS: SACCHAROMYCES BOULARDII 250 MG CAP GTB SCH ×2 (08:32→23:05)
[2018-07-29] MEDS: QUETIAPINE 25 MG TAB GTB SCH ×2 (08:33→23:07)
[2018-07-29] MEDS: MEMANTINE 5 MG TAB GTB SCH ×2 (08:33→23:07)
[2018-07-29] MEDS: CALCIUM/VITAMIN D (500/200) TAB PO SCH (08:33)
[2018-07-29] MEDS: FUROSEMIDE 20 MG TAB PO SCH (08:33)
[2018-07-29] MEDS: ASPIRIN (EC) 81 MG TAB PO SCH (08:33)
[2018-07-29] MEDS: METOPROLOL 25 MG TAB GTB SCH ×2 (08:34→23:07)
[2018-07-29] MEDS: AMIODARONE 200 MG TAB PO SCH (08:34)
[2018-07-29 08:39] VITALS: BP 96/53; PULSE 76
[2018-07-29] MEDS: AMLODIPINE 5 MG TAB PO SCH ×2 (09:00→17:19)
[2018-07-29] MEDS: VANCOMYCIN HCL 1.25 GM in SOD CHLORIDE 0.9% 250 ML IVPB SCH (11:15)
[2018-07-29] MEDS: INSULIN GLARGINE [LANTus] (100 UNITS/ML) SYG SC SCH (11:17)
[2018-07-29] MEDS: MUPIROCIN 2% 22 GM OINT TOP SCH ×2 (11:21→23:09)
[2018-07-29] MEDS: BALSAM PERU/CASTOR OIL 60 GM TUBE TOP SCH ×2 (11:54→23:09)
[2018-07-29] MEDS: LISINOPRIL 20 MG TAB PO SCH (14:00)
[2018-07-29] MEDS: SOD CHLORIDE 0.9% 1,000 ML IV SCH (14:17)
--- NOTE | 2018-07-29 14:18 | CONS ---
Assessment/Plan Assessment/Plan Hospital Course (Demo Recall) Patient is noncommunicative, restless in no distress, afebrile BUN 23 creatinine 0.43 Microbiology: Blood cultures remain negative. Bilateral lower extremities cultures growing MRSA, enterococcus, E. coli Antimicrobials: Vancomycin, cefepime Physical examination: Chronically ill-appearing debilitated elderly man in no distress. Head atraumatic normocephalic neck is supple chest rise symmetrical breath sounds diminished bases. Heart: S1-S2. Abdomen soft bowel sounds present. Extremities with bilateral lower extremities dressing intact Assessment: 1. Sepsis, present on admission 2. 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 Diabetes with diabetic neuropathy 4. Aspiration pneumonia 5. Dementia Plan: Remains stable, on appropriate antibiotics, continue aspiration precautions, follow podiatry and pulmonary recommendations Consultation Date/Type/Reason Admit Date/Time Jul 25, 2018 at 22:41 Initial Consult Date 07/26/18 Type of Consult id Date/Time of Note DATE: 07/29/18 TIME: 14:17 Exam/Review of Systems Exam Vitals Vital Signs Date Temp Pulse Resp B/P (MAP) Pulse Ox O2 O2 Flow FiO2 Time Delivery Rate 07/29/18 Nasal 09:00 Cannula 07/29/18 97.9 76 96/53 (67) 93 08:39 07/29/18 17 02:00 07/28/18 2.0 13:11 Intake and Output 07/28/18 07/28/18 07/29/18 1515:00 23:00 07:00 IntakeIntake Total 350 ml 1300 ml 650 ml OutputOutput Total 650 ml BalanceBalance 350 ml 650 ml 650 ml Results Result Diagram: 07/27/18 0703 07/29/18 0821 Results 24hrs Laboratory Tests Test 07/28/18 17:31 07/28/18 21:26 07/29/18 06:01 07/29/18 08:19 Bedside Glucose 152 169 161 155 Test 07/29/18 08:21 07/29/18 11:16 Blood Urea Nitrogen 23 H Creatinine 0.43 L Vancomycin Level 10.3 Trough Bedside Glucose 179 Medications Medication Current Medications Sodium Chloride 1,000 ml @ 60 mls/hr [id number] IV Last administered on 07/28/18at 18:42; Admin Dose 60 MLS/HR; Start 07/25/18 at 22:43 IV Flush (NS 3 ml) 3 ml PER PROTOCOL IV ; Start 07/25/18 at 23:00 Ondansetron HCl (Zofran Inj) 4 mg Q6H PRN IV NAUSEA/VOMITING; Start 07/25/18 at 23:00 Acetaminophen (Tylenol Tab) 650 mg Q6H PRN PO .PAIN 1-3 OR TEMP; Start 07/25/18 at 23:00 Morphine Sulfate (morphine) 2 mg Q4H PRN IV .PAIN 7-10; Start 07/25/18 at 23:00 Enoxaparin Sodium (Lovenox) 30 mg DAILY SC Last administered on 07/29/18at 08:32; Admin Dose 30 MG; Start 07/26/18 at 09:00 Cefepime HCl 50 ml @ 100 mls/hr Q8 IVPB Last administered on 07/29/18at 05:55; Admin Dose 100 MLS/HR; Start 07/26/18 at 06:00 Vancomycin HCl (Vanco Iv Per Pharmacy) VANCOMYCIN PER PHARMACY PER PROTOCOL XX ; Start 07/25/18 at 23:00 Miscellaneous [facility] This patient fajardo... PRN PRN XX WOUND CARE; Start 07/26/18 at 06:00 Acetaminophen (Tylenol Tab) 650 mg Q4H PRN PO MILD PAIN LEVEL 1-3; Start 07/26/18 at 11:00 Amiodarone HCl (Cordarone) 200 mg QAM PO Last administered on 07/29/18at 08:34; Admin Dose 200 MG; Start 07/26/18 at 13:00 Amlodipine Besylate (Norvasc) 5 mg DAILY PO Last administered on 07/28/18at 09:30; Admin Dose 5 MG; Start 07/26/18 at 13:00 Aspirin (Halfprin) 81 mg DAILY PO Last administered on 07/29/18at 08:33; Admin Dose 81 MG; Start 07/26/18 at 13:00 Bisacodyl (Dulcolax) 10 mg DAILY PRN PO CONSTIPATION; Start 07/26/18 at 11:00 Calcium/Vitamin D (Oyster Shell/ Vit-D (500/200)) 1 tab DAILY PO Last administered on 07/29/18at 08:33; Admin Dose 1 TAB; Start 07/26/18 at 13:00 Furosemide (Lasix) 10 mg DAILY PO Last administered on 07/29/18at 08:33; Admin Dose 10 MG; Start 07/26/18 at 13:00 Lisinopril (Zestril) 40 mg DAILY@1400 PO Last administered on 07/27/18at 13:48; Admin Dose 40 MG; Start 07/26/18 at 16:00 Magnesium Hydroxide (Milk Of Mag) 30 ml QHS PRN PO CONSTIPATION; Start 07/26/18 at 11:00 Nitroglycerin (Nitroglycerin (Sl Tab) 0.4 Mg) 1 tab Q5M PRN SL CHEST PAIN; Start 07/26/18 at 11:00 Valproate Sodium (Depakene Liquid Cup) 125 mg DAILY PO Last administered on 07/29/18at 08:32; Admin Dose 125 MG; Start 07/26/18 at 13:00 Sodium Hypochlorite (Dakins Diluted ()) 1 applic DAILY TP Last administered on 07/29/18at 11:54; Admin Dose 1 APPLIC; Start 07/27/18 at 09:00 Collagenase (Santyl) 1 applic DAILY TOP Last administered on 07/29/18at 11:55; Admin Dose 1 APPLIC; Start 07/27/18 at 09:00 Miscellaneous Information 1 ea NOTE XX ; Start 07/26/18 at 14:30 Glucose (Glutose) 15 gm Q15M PRN PO DECREASED GLUCOSE; Start 07/26/18 at 14:30 Glucose (Glutose) 22.5 gm Q15M PRN PO DECREASED GLUCOSE; Start 07/26/18 at 14:30 Dextrose (D50w Syringe) 25 ml Q15M PRN IV DECREASED GLUCOSE; Start 07/26/18 at 14:30 Dextrose (D50w Syringe) 50 ml Q15M PRN IV DECREASED GLUCOSE; Start 07/26/18 at 14:30 Glucagon (Glucagen) 1 mg Q15M PRN IM DECREASED GLUCOSE; Start 07/26/18 at 14:30 Glucose (Glutose) 15 gm Q15M PRN BUCCAL DECREASED GLUCOSE; Start 07/26/18 at 14:30 Diagnostic Test (Pha) (Accu-Chek) 1 ea 02 XX Last administered on 07/28/18at 01:47; Admin Dose 1 EA; Start 07/27/18 at 02:00 Mupirocin (Bactroban) 1 applic BID TOP Last administered on 07/29/18 11:21; Admin Dose 1 APPLIC; Start 07/27/18 at 17:00 Quetiapine Fumarate (Seroquel) 25 mg BID GTB Last administered on 07/29/18 08 :33; Admin Dose 25 MG; Start 07/28/18 at 00:00 Insulin Glargine (Lantus) 10 units DAILY@0800 SC Last administered on 07/29/18 11:17; Admin Dose 10 UNITS; Start 07/28/18 at 08:00 Amiodarone HCl (Cordarone) 100 mg QHS GTB Last administered on 07/28/18 22:08; Admin Dose 100 MG; Start 07/28/18 at 22:00 Memantine (Namenda) 5 mg BID GTB Last administered on 07/29/18 08:33; Admin Dose 5 MG; Start 07/28/18 at 22:00 Metoprolol Tartrate (Lopressor) 25 mg BID GTB Last administered on 07/28/18 22:08; Admin Dose 25 MG; Start 07/28/18 at 22:00 Saccharomyces Boulardii (Florastor) 250 mg BID GTB Last administered on 07/29/18 08:32; Admin Dose 250 MG; Start 07/28/18 at 22:00 Terazosin HCl (Hytrin) 1 mg HS GTB Last administered on 07/28/18 22:07; Admin Dose 1 MG; Start 07/28/18 at 22:00 Valproate Sodium (Depakene Liquid Cup) 250 mg QPM GTB Last administered on 07/28/18 22:07; Admin Dose 250 MG; Start 07/28/18 at 22:00 Insulin Aspart (Novolog Insulin Pen) (Adult SC Insulin - Mild Algorithm)... Q6 SC Last administered on 07/29/18 11:18; Admin Dose 1 UNIT; Start 07/29/18 at 06:00 Lansoprazole (Prevacid) 30 mg DAILY@06 GTB ; Start 07/29/18 at 06:26 Vancomycin HCl 1.5 gm/Sodium Chloride 250 ml @ 83.333 mls/ hr Q24H IVPB ; Start 07/30/18 at 11:00 JAMIE WORRELL NP Jul 29, 2018 14:18
--- NOTE | 2018-07-29 14:21 | PN ---
DATE: 07/28/2018 SUBJECTIVE: Follow up on bilateral foot gangrene, dementia, peripheral vascular disease, paroxysmal fibrillation, dementia with behavioral changes, diabetes and dysphagia. The patient is breathing com fortably on 2 liters nasal cannula, occasionally has chest congestion. No reported vomiting. The pa tiekarl is tolerating G-tube feeding well. No reported bleeding from any site. No reported fever or c hills. PHYSICAL EXAMINATION: GENERAL: Revealed the patient to be awake, confused. VITAL SIGNS: Temperature 98.3, pulse 76, respiration 20, blood pressure 95/51, O2 saturation 97% on 2 liters nasal cannula. HEENT: No eye discharge and redness. Conjunctivae and lids are normal. Nose and ears are normal. Oropharynx is grossly negative. NECK: No mass. CHEST: Fairly clear. CARDIOVASCULAR: S1, S2 normal. ABDOMEN: Soft, nontender. EXTREMITIES: Dressing is intact, both feet. No leg edema. The patient's extremities are contracted. IMPRESSION: 1. Sepsis on admission due to bilateral foot gangrene status post debridement. Continue vancomycin and cefepime. 2. Dementia with no agitation with behavioral disturbance. Continue Depakote, Namenda and Seroquel. 3. Hypertension. Blood pressure is well controlled with Lopressor. 4. Code status: DNR. Dictated By: ELVA ORTIZ MD AB/NTS Conf#: [id number] DID#: [id number] CC: LORE RIVERA MD; TELLO WHITING MD;*EndCC*
[2018-07-29 14:24] VITALS: BP 100/55; PULSE 75; RESP 18
--- NOTE | 2018-07-29 17:23 | PN ---
Date/Time of Note Date/Time of Note DATE: 07/29/18 TIME: 17:22 Assessment/Plan VTE Prophylaxis Risk score (from [facility])>0 risk: 7 SCD applied (from [facility]): No SCD contraindicated: bilateral LE trauma Pharmacological prophylaxis: LMWH Lines/Catheters IV Catheter Type (from [facility]): Mid Line Central line still needed: Yes Urinary Cath still in place: Yes Reason Cath still needed: urinary retention Assessment/Plan Hospital Course Patient is awake confused, low-grade fever, stable heart rate and blood pressure patient's continues on supplemental oxygen via nasal cannula. Assessment/Plan - Sepsis due to bilateral foot gangrene. Right foot cellulitic lesion, questionable osteomyelitis. Continue vancomycin and cefepime. Dr. Palomino is following in infection disease consultation. - Bilateral foot gangrene. Dr. Roberts is following in podiatry consultation. Plan for debridement when consent is obtained. 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 - Peripheral vascular disease. Status post evaluation by Dr. Horne in vascular surgery consultation, no aggressive treatment is recommended. - Possible Aspiration PNA - Paroxysmal atrial fibrillation. Regular hear rate. Continue amiodarone, aspirin, BB. Dr. Castrejon is following in cardiology consultation. - Diabetes. Continue NovoLog. - Dysphagia. Continue G-tube feeding. - Dementia with behavioral disturbances. Continue Namenda and Seroquel. - DNR status Further recommendation would depend on the patient's hospital course. Plan of care discussed with Dr Figueroa. Result Diagram: 07/27/18 0703 07/29/18 0821 Results 24hrs Laboratory Tests Test 07/28/18 17:31 07/28/18 21:26 07/29/18 06:01 07/29/18 08:19 Bedside Glucose 152 169 161 155 Test 07/29/18 08:21 07/29/18 11:16 Blood Urea Nitrogen 23 H Creatinine 0.43 L Vancomycin Level 10.3 Trough Bedside Glucose 179 Exam/Review of Systems Exam Vitals Vital Signs Date Temp Pulse Resp B/P (MAP) Pulse Ox O2 O2 Flow FiO2 Time Delivery Rate 07/29/18 99.0 75 18 100/55 95 Room Air 14:24 (70) 07/28/18 2.0 13:11 Intake and Output 07/28/18 07/28/18 07/29/18 1515:00 23:00 07:00 IntakeIntake Total 350 ml 1300 ml 650 ml OutputOutput Total 650 ml BalanceBalance 350 ml 650 ml 650 ml Constitutional: alert, frail Respiratory: diminished breath sounds Cardiovascular: nl pulses Gastrointestinal: soft, non-tender, other (GT) Extremities: other (contracted) Skin: other (bilateral foot ulcers) Results Results 24hrs Laboratory Tests Test 07/28/18 17:31 07/28/18 21:26 07/29/18 06:01 07/29/18 08:19 Bedside Glucose 152 169 161 155 Test 07/29/18 08:21 07/29/18 11:16 Blood Urea Nitrogen 23 H Creatinine 0.43 L Vancomycin Level 10.3 Trough Bedside Glucose 179 Medications Medication Current Medications Sodium Chloride 1,000 ml @ 60 mls/hr [id number] IV Last administered on 07/29/18at 14:17; Admin Dose 60 MLS/HR; Start 07/25/18 at 22:43 IV Flush (NS 3 ml) 3 ml PER PROTOCOL IV ; Start 07/25/18 at 23:00 Ondansetron HCl (Zofran Inj) 4 mg Q6H PRN IV NAUSEA/VOMITING; Start 07/25/18 at 23:00 Acetaminophen (Tylenol Tab) 650 mg Q6H PRN PO .PAIN 1-3 OR TEMP; Start 07/25/18 at 23:00 Morphine Sulfate (morphine) 2 mg Q4H PRN IV .PAIN 7-10; Start 07/25/18 at 23:00 Enoxaparin Sodium (Lovenox) 30 mg DAILY SC Last administered on 07/29/18at 08:32; Admin Dose 30 MG; Start 07/26/18 at 09:00 Cefepime HCl 50 ml @ 100 mls/hr Q8 IVPB Last administered on 07/29/18at 14:14; Admin Dose 100 MLS/HR; Start 07/26/18 at 06:00 Vancomycin HCl (Vanco Iv Per Pharmacy) VANCOMYCIN PER PHARMACY PER PROTOCOL XX ; Start 07/25/18 at 23:00 Miscellaneous Information (Pending Santyl Order For Wound Care) This patient fajardo... PRN PRN XX WOUND CARE; Start 07/26/18 at 06:00 Acetaminophen (Tylenol Tab) 650 mg Q4H PRN PO MILD PAIN LEVEL 1-3; Start 07/26/18 at 11:00 Amiodarone HCl (Cordarone) 200 mg QAM PO Last administered on 07/29/18 08:34; Admin Dose 200 MG; Start 07/26/18 at 13:00 Amlodipine Besylate (Norvasc) 5 mg DAILY PO Last administered on 07/28/18 09:30; Admin Dose 5 MG; Start 07/26/18 at 13:00 Aspirin (Halfprin) 81 mg DAILY PO Last administered on 07/29/18 08:33; Admin Dose 81 MG; Start 07/26/18 at 13:00 Bisacodyl (Dulcolax) 10 mg DAILY PRN PO CONSTIPATION; Start 07/26/18 at 11:00 Calcium/Vitamin D (Oyster Shell/ Vit-D (500/200)) 1 tab DAILY PO Last administered on 07/29/18 08:33; Admin Dose 1 TAB; Start 07/26/18 at 13:00 Furosemide (Lasix) 10 mg DAILY PO Last administered on 07/29/18 08:33; Admin Dose 10 MG; Start 07/26/18 at 13:00 Lisinopril (Zestril) 40 mg DAILY@1400 PO Last administered on 07/27/18 13:48; Admin Dose 40 MG; Start 07/26/18 at 16:00 Magnesium Hydroxide (Milk Of Mag) 30 ml QHS PRN PO CONSTIPATION; Start 07/26/18 at 11:00 Nitroglycerin (Nitroglycerin (Sl Tab) 0.4 Mg) 1 tab Q5M PRN SL CHEST PAIN; Start 07/26/18 at 11:00 Valproate Sodium (Depakene Liquid Cup) 125 mg DAILY PO Last administered on 07/29/18 08:32; Admin Dose 125 MG; Start 07/26/18 at 13:00 Sodium Hypochlorite (Dakins Diluted (40)) 1 applic DAILY TP Last administered on 07/29/18 11:54; Admin Dose 1 APPLIC; Start 07/27/18 at 09:00 Collagenase (Santyl) 1 applic DAILY TOP Last administered on 07/29/18 11:55; Admin Dose 1 APPLIC; Start 07/27/18 at 09:00 Miscellaneous Information 1 ea NOTE XX ; Start 07/26/18 at 14:30 Glucose (Glutose) 15 gm Q15M PRN PO DECREASED GLUCOSE; Start 07/26/18 at 14:30 Glucose (Glutose) 22.5 gm Q15M PRN PO DECREASED GLUCOSE; Start 07/26/18 at 14:30 Dextrose (D50w Syringe) 25 ml Q15M PRN IV DECREASED GLUCOSE; Start 07/26/18 at 14:30 Dextrose (D50w Syringe) 50 ml Q15M PRN IV DECREASED GLUCOSE; Start 07/26/18 at 14:30 Glucagon (Glucagen) 1 mg Q15M PRN IM DECREASED GLUCOSE; Start 07/26/18 at 14:30 Glucose (Glutose) 15 gm Q15M PRN BUCCAL DECREASED GLUCOSE; Start 07/26/18 at 14:30 Diagnostic Test (Pha) (Accu-Chek) 1 ea 02 XX Last administered on 07/28/18at 01:47; Admin Dose 1 EA; Start 07/27/18 at 02:00 Mupirocin (Bactroban) 1 applic BID TOP Last administered on 07/29/18 11:21; Admin Dose 1 APPLIC; Start 07/27/18 at 17:00 Quetiapine Fumarate (Seroquel) 25 mg BID GTB Last administered on 07/29/18 08:33; Admin Dose 25 MG; Start 07/28/18 at 00:00 Insulin Glargine (Lantus) 10 units DAILY@0800 SC Last administered on 07/29/18 11:17; Admin Dose 10 UNITS; Start 07/28/18 at 08:00 Amiodarone HCl (Cordarone) 100 mg QHS GTB Last administered on 07/28/18 22:08; Admin Dose 100 MG; Start 07/28/18 at 22:00 Memantine (Namenda) 5 mg BID GTB Last administered on 07/29/18 08:33; Admin Dose 5 MG; Start 07/28/18 at 22:00 Metoprolol Tartrate (Lopressor) 25 mg BID GTB Last administered on 07/28/18 22:08; Admin Dose 25 MG; Start 07/28/18 at 22:00 Saccharomyces Boulardii (Florastor) 250 mg BID GTB Last administered on 08:32; Admin Dose 250 MG; Start 07/28/18 at 22:00 Terazosin HCl (Hytrin) 1 mg HS GTB Last administered on 07/28/18at 22:07; Admin Dose 1 MG; Start 07/28/18 at 22:00 Valproate Sodium (Depakene Liquid Cup) 250 mg QPM GTB Last administered on 07/28/18at 22:07; Admin Dose 250 MG; Start 07/28/18 at 22:00 Insulin Aspart (Novolog Insulin Pen) (Adult SC Insulin - Mild Algorithm)... Q6 SC Last administered on 07/29/18at 11:18; Admin Dose 1 UNIT; Start 07/29/18 at 06:00 Lansoprazole (Prevacid) 30 mg DAILY@06 GTB ; Start 07/29/18 at 06:26 Vancomycin HCl 1.5 gm/Sodium Chloride 250 ml @ 83.333 mls/ hr Q24H IVPB ; Start 07/30/18 at 11:00 THUAN LOVE Jul 29, 2018 17:23
--- NOTE | 2018-07-29 19:03 | CONS ---
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 Unknown POA for the patient. Spoke to nursing staff to obtain contact with the POA. Recommend daily dressing changes with betadine and dry sterile dressings. Wound cultures showing polymicrobial growth which includes MRSA. Appreciate vascular surgery input. Leukocytosis trending downward. Continue with IV abx as recommended. Offload feet/heels with pillows. Consultation Date/Type/Reason Admit Date/Time Jul 25, 2018 at 22:41 Initial Consult Date 07/26/18 Date/Time of Note DATE: 07/29/18 TIME: 19:03 24 HR Interval Summary Free Text/Dictation No acute events overnight. Exam/Review of Systems Exam Vitals Vital Signs Date Temp Pulse Resp B/P (MAP) Pulse Ox O2 O2 Flow FiO2 Time Delivery Rate 07/29/18 99.0 75 18 100/55 95 Room Air 14:24 (70) 07/28/18 2.0 13:11 Intake and Output 07/28/18 07/28/18 07/29/18 1515:00 23:00 07:00 IntakeIntake Total 350 ml 1300 ml 650 ml OutputOutput Total 650 ml BalanceBalance 350 ml 650 ml 650 ml Exam weakly palpable pulses Absent protective sensations. Pain at ulceration sites bilateral knee contractures noted Left lateral 5th metatarsal base gangrenous ulcer 4 x 5cm indeterminate depth with mild purulence noted Right medial 1st MPJ ulcer 2 x 2cm fibronecrotic ulcer right medial midfoot 5 x 7cm indeterminate depth fibronecrotic wound bed with fluctuance appreciated and boggy appearance. Right lateral 5th MPJ 3 x 3cm indeterminate depth dry gangrene Right lateral 5th met base 6 x 4 x 0.5cm with surrounding dry gangrene with central granular and fibrotic wound bed Right lateral malleolus 3 x 3 x 0.3cm fibrogranular wound bed Right heel 9 x 4cm indeterminate depth which extends to the lateral aspect of the heel, dry gangrene Foul odor noted to right foot ulceration sites Non invasive arterial studies IMPRESSION: 1. No focal hemodynamically significant stenosis. 2. Blunted waveforms in the distal bilateral lower extremities compatible with vascular resistance. R foot x-ray IMPRESSION: 1. Soft tissue ulcer overlying the first metatarsal phalangeal joint medially. 2. Atherosclerosis. 3. Possible lytic lesion of the base of the fifth metatarsal laterally. Correlation with MRI advised. 4. Otherwise unremarkable images of the right foot. L foot x-ray IMPRESSION: 1. Atherosclerosis. 2. Otherwise unremarkable images of the left foot. Results Result Diagram: 07/27/18 0703 07/29/18 0821 Results 24hrs Laboratory Tests Test 07/28/18 21:26 07/29/18 06:01 07/29/18 08:19 07/29/18 08:21 Bedside Glucose 169 161 155 Blood Urea Nitrogen 23 H Creatinine 0.43 L Vancomycin Level 10.3 Trough Test 07/29/18 11:16 07/29/18 17:17 Bedside Glucose 179 141 Medications Medication Current Medications Sodium Chloride 1,000 ml @ 60 mls/hr [id number] IV Last administered on 07/29/18at 14:17; Admin Dose 60 MLS/HR; Start 07/25/18 at 22:43 IV Flush (NS 3 ml) 3 ml PER PROTOCOL IV ; Start 07/25/18 at 23:00 Ondansetron HCl (Zofran Inj) 4 mg Q6H PRN IV NAUSEA/VOMITING; Start 07/25/18 at 23:00 Acetaminophen (Tylenol Tab) 650 mg Q6H PRN PO .PAIN 1-3 OR TEMP; Start 07/25/18 at 23:00 Morphine Sulfate (morphine) 2 mg Q4H PRN IV .PAIN 7-10; Start 07/25/18 at 23:00 Enoxaparin Sodium (Lovenox) 30 mg DAILY SC Last administered on 07/29/18at 08:32; Admin Dose 30 MG; Start 07/26/18 at 09:00 Cefepime HCl 50 ml @ 100 mls/hr Q8 IVPB Last administered on 07/29/18at 14:14; Admin Dose 100 MLS/HR; Start 07/26/18 at 06:00 Vancomycin HCl (Vanco Iv Per Pharmacy) VANCOMYCIN PER PHARMACY PER PROTOCOL XX ; Start 07/25/18 at 23:00 Miscellaneous Information (Pending Santyl Order For Wound Care) This patient fajardo... PRN PRN XX WOUND CARE; Start 07/26/18 at 06:00 Acetaminophen (Tylenol Tab) 650 mg Q4H PRN PO MILD PAIN LEVEL 1-3; Start at 11:00 Amiodarone HCl (Cordarone) 200 mg QAM PO Last administered on 07/29/18 08:34; Admin Dose 200 MG; Start 07/26/18 at 13:00 Amlodipine Besylate (Norvasc) 5 mg DAILY PO Last administered on 07/29/18 17:19; Admin Dose 5 MG; Start 07/26/18 at 13:00 Aspirin (Halfprin) 81 mg DAILY PO Last administered on 07/29/18 08:33; Admin Dose 81 MG; Start 07/26/18 at 13:00 Bisacodyl (Dulcolax) 10 mg DAILY PRN PO CONSTIPATION; Start 07/26/18 at 11:00 Calcium/Vitamin D (Oyster Shell/ Vit-D (500/200)) 1 tab DAILY PO Last administered on 07/29/18 08:33; Admin Dose 1 TAB; Start 07/26/18 at 13:00 Furosemide (Lasix) 10 mg DAILY PO Last administered on 07/29/18 08:33; Admin Dose 10 MG; Start 07/26/18 at 13:00 Lisinopril (Zestril) 40 mg DAILY@1400 PO Last administered on 07/27/18 13:48; Admin Dose 40 MG; Start 07/26/18 at 16:00 Magnesium Hydroxide (Milk Of Mag) 30 ml QHS PRN PO CONSTIPATION; Start 07/26/18 at 11:00 Nitroglycerin (Nitroglycerin (Sl Tab) 0.4 Mg) 1 tab Q5M PRN SL CHEST PAIN; Start 07/26/18 at 11:00 Valproate Sodium (Depakene Liquid Cup) 125 mg DAILY PO Last administered on 07/29/18 08:32; Admin Dose 125 MG; Start 07/26/18 at 13:00 Sodium Hypochlorite (Dakins Diluted ()) 1 applic DAILY TP Last administered on 07/29/18 11:54; Admin Dose 1 APPLIC; Start 07/27/18 at 09:00 Collagenase (Santyl) 1 applic DAILY TOP Last administered on 07/29/18 11:55; Admin Dose 1 APPLIC; Start 07/27/18 at 09:00 Miscellaneous Information 1 ea NOTE XX ; Start 07/26/18 at 14:30 Glucose (Glutose) 15 gm Q15M PRN PO DECREASED GLUCOSE; Start 07/26/18 at 14:30 Glucose (Glutose) 22.5 gm Q15M PRN PO DECREASED GLUCOSE; Start 07/26/18 at 14:30 Dextrose (D50w Syringe) 25 ml Q15M PRN IV DECREASED GLUCOSE; Start 07/26/18 at 14:30 Dextrose (D50w Syringe) 50 ml Q15M PRN IV DECREASED GLUCOSE; Start 07/26/18 at 14:30 Glucagon (Glucagen) 1 mg Q15M PRN IM DECREASED GLUCOSE; Start 07/26/18 at 14:30 Glucose (Glutose) 15 gm Q15M PRN BUCCAL DECREASED GLUCOSE; Start 07/26/18 at 14:30 Diagnostic Test (Pha) (Accu-Chek) 1 ea 02 XX Last administered on 07/28/18at 01:47; Admin Dose 1 EA; Start 07/27/18 at 02:00 Mupirocin (Bactroban) 1 applic BID TOP Last administered on 07/29/18 11:21; Admin Dose 1 APPLIC; Start 07/27/18 at 17:00 Quetiapine Fumarate (Seroquel) 25 mg BID GTB Last administered on 07/29/18 08:33; Admin Dose 25 MG; Start 07/28/18 at 00:00 Insulin Glargine (Lantus) 10 units DAILY@0800 SC Last administered on 07/29/18 11:17; Admin Dose 10 UNITS; Start 07/28/18 at 08:00 Amiodarone HCl (Cordarone) 100 mg QHS GTB Last administered on 07/28/18at 22:08; Admin Dose 100 MG; Start 07/28/18 at 22:00 Memantine (Namenda) 5 mg BID GTB Last administered on 07/29/18 08:33; Admin Dose 5 MG; Start 07/28/18 at 22:00 Metoprolol Tartrate (Lopressor) 25 mg BID GTB Last administered on 07/28/18 22:08; Admin Dose 25 MG; Start 07/28/18 at 22:00 Saccharomyces Boulardii (Florastor) 250 mg BID GTB Last administered on 07/29/18 08:32; Admin Dose 250 MG; Start 07/28/18 at 22:00 Terazosin HCl (Hytrin) 1 mg HS GTB Last administered on 07/28/18at 22:07; Admin Dose 1 MG; Start 07/28/18 at 22:00 Valproate Sodium (Depakene Liquid Cup) 250 mg QPM GTB Last administered on 07/28at 22:07; Admin Dose 250 MG; Start 07/28/18 at 22:00 Insulin Aspart (Novolog Insulin Pen) (Adult SC Insulin - Mild Algorithm)... Q6 SC Last administered on 07/29/18at 17:21; Admin Dose 1 UNIT; Start 07/29/18 at 06:00 Lansoprazole (Prevacid) 30 mg DAILY@06 GTB ; Start 07/29/18 at 06:26 Vancomycin HCl 1.5 gm/Sodium Chloride 250 ml @ 83.333 mls/ hr Q24H IVPB ; Start 07/30/18 at 11:00 SHAHANA TERRAZAS DPM Jul 29, 2018 19:03
[2018-07-29 20:00] VITALS: BP 129/59; PULSE 77; RESP 17
[2018-07-29] MEDS: VALPROIC ACID LIQUID CUP 250 MG/5 ML CUP GTB SCH (23:05)
[2018-07-29] MEDS: AMIODARONE 200 MG TAB GTB SCH (23:06)
[2018-07-29] MEDS: TERAZOSIN 1 MG CAP GTB SCH (23:06)
[2018-07-30] MEDS: Insulin NOVOLOG SS MILD Algorithm (NPO/TPN/ENTERAL FEEDS) SC SCH ×4 (01:21→17:29)
[2018-07-30] MEDS: ACCUCHECK AT 2AM (Patients on SS coverage) XX SCH (01:22)
[2018-07-30 02:00] VITALS: BP 115/57; PULSE 71; RESP 18
[2018-07-30] MEDS: LANSOPRAZOLE 30 MG CAP GTB SCH (06:25)
[2018-07-30] MEDS: CEFEPIME 2GM/50 ML (PMX) 50 ML IVPB SCH ×3 (06:25→21:19)
[2018-07-30] MEDS: SOD CHLORIDE 0.9% 1,000 ML IV SCH (07:28)
[2018-07-30 07:58] VITALS: BP 114/56; PULSE 76; RESP 20
[2018-07-30] MEDS: INSULIN GLARGINE [LANTus] (100 UNITS/ML) SYG SC SCH (08:13)
[2018-07-30] MEDS: MEMANTINE 5 MG TAB GTB SCH ×2 (08:14→21:01)
[2018-07-30] MEDS: ENOXAPARIN 30 MG/0.3 ML SYG SC SCH (08:14)
[2018-07-30] MEDS: CALCIUM/VITAMIN D (500/200) TAB PO SCH (08:14)
[2018-07-30] MEDS: FUROSEMIDE 20 MG TAB PO SCH (08:14)
[2018-07-30] MEDS: AMIODARONE 200 MG TAB PO SCH (08:15)
[2018-07-30] MEDS: QUETIAPINE 25 MG TAB GTB SCH ×2 (08:15→21:01)
[2018-07-30] MEDS: AMLODIPINE 5 MG TAB PO SCH (08:15)
[2018-07-30] MEDS: ASPIRIN (EC) 81 MG TAB PO SCH (08:15)
[2018-07-30] MEDS: VALPROIC ACID LIQUID CUP 250 MG/5 ML CUP PO SCH (08:16)
[2018-07-30] MEDS: SACCHAROMYCES BOULARDII 250 MG CAP GTB SCH ×2 (08:16→21:00)
[2018-07-30] MEDS: METOPROLOL 25 MG TAB GTB SCH ×2 (08:16→21:00)
[2018-07-30] MEDS: MUPIROCIN 2% 22 GM OINT TOP SCH ×2 (08:16→21:19)
[2018-07-30] MEDS: BALSAM PERU/CASTOR OIL 60 GM TUBE TOP SCH ×2 (08:17→21:19)
[2018-07-30] MEDS: DAKINS 0.0125%(1/40) 473 ML SOLUTION TP SCH (08:17)
[2018-07-30] MEDS: VANCOMYCIN HCL 1.5 GM in SOD CHLORIDE 0.9% 250 ML IVPB SCH (11:05)
--- NOTE | 2018-07-30 11:14 | CONS ---
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 The patient's POA is Lori Morgan . Will coordinate with the OR to find availability. Recommend daily dressing changes with betadine and dry sterile dressings. Wound cultures showing polymicrobial growth which includes MRSA. Appreciate vascular surgery input. Leukocytosis trending downward. Continue with IV abx as recommended. Offload feet/heels with pillows. Consultation Date/Type/Reason Admit Date/Time Jul 25, 2018 at 22:41 Initial Consult Date 07/26/18 Date/Time of Note DATE: 07/30/18 TIME: 11:13 24 HR Interval Summary Free Text/Dictation No acute events overnight Exam/Review of Systems Exam Vitals Vital Signs Date Temp Pulse Resp B/P (MAP) Pulse Ox O2 O2 Flow FiO2 Time Delivery Rate 07/30/18 Nasal 2.0 10:35 Cannula 07/30/18 98.8 76 20 114/56 92 07:58 (75) Intake and Output 07/29/18 07/29/18 07/30/18 1515:00 23:00 07:00 IntakeIntake Total 300 ml 1015 ml 1100 ml OutputOutput Total 1300 ml 900 ml BalanceBalance -1000 ml 1015 ml 200 ml Exam weakly palpable pulses Absent protective sensations. Pain at ulceration sites bilateral knee contractures noted Left lateral 5th metatarsal base gangrenous ulcer 4 x 5cm indeterminate depth with mild purulence noted Right medial 1st MPJ ulcer 2 x 2cm fibronecrotic ulcer right medial midfoot 5 x 7cm indeterminate depth fibronecrotic wound bed with fluctuance appreciated and boggy appearance. Right lateral 5th MPJ 3 x 3cm indeterminate depth dry gangrene Right lateral 5th met base 6 x 4 x 0.5cm with surrounding dry gangrene with central granular and fibrotic wound bed Right lateral malleolus 3 x 3 x 0.3cm fibrogranular wound bed Right heel 9 x 4cm indeterminate depth which extends to the lateral aspect of the heel, dry gangrene Foul odor noted to right foot ulceration sites Non invasive arterial studies IMPRESSION: 1. No focal hemodynamically significant stenosis. 2. Blunted waveforms in the distal bilateral lower extremities compatible with vascular resistance. R foot x-ray IMPRESSION: 1. Soft tissue ulcer overlying the first metatarsal phalangeal joint medially. 2. Atherosclerosis. 3. Possible lytic lesion of the base of the fifth metatarsal laterally. Correlation with MRI advised. 4. Otherwise unremarkable images of the right foot. L foot x-ray IMPRESSION: 1. Atherosclerosis. 2. Otherwise unremarkable images of the left foot. Results Result Diagram: 07/30/18 0556 07/30/18 0556 Results 24hrs Laboratory Tests Test 07/29/18 11:16 07/29/18 17:17 07/30/18 01:19 07/30/18 05:56 Bedside Glucose 179 141 153 White Blood Count 15.9 H Red Blood Count 3.40 L Hemoglobin 9.3 L Hematocrit 30.1 L Mean Corpuscular 88.5 Volume Mean Corpuscular 27.4 L Hemoglobin Mean Corpuscular 30.9 L Hemoglobin Concent Red Cell 15.7 H Distribution Width Platelet Count 393 Mean Platelet Volume 11.2 H Immature 7.100 H Granulocytes % Neutrophils % Segmented 78 H Neutrophils % (Manual) Lymphocytes % Lymphocytes % 6 L (Manual) Reactive Lymphocytes 2 H % (Manual) Monocytes % Monocytes % (Manual) 7 Eosinophils % Eosinophils % 1 (Manual) Basophils % Basophils % (Manual) 2 Metamyelocytes % 2 H (manual) Myelocytes % 2 H (Manual) Nucleated Red Blood 0.0 Cells % Immature 1.130 H Granulocytes # Neutrophils # Lymphocytes (Manual) 0.9 Lymphocytes # Reactive Lymphocytes 0.3 H # Monocytes # Monocytes # (Manual) 1.1 H Eosinophils # Basophils # Basophils # (Manual) 0.3 H Metamyelocytes # 0.3 H Myelocytes # 0.3 H Nucleated Red Blood Cells # Platelet Estimate NORMAL Polychromasia 3+ Poikilocytosis 1+ Anisocytosis 1+ Microcytosis 1+ Sodium Level 142 Potassium Level 3.2 L Chloride Level 108 Carbon Dioxide Level 29 Anion Gap 5 Blood Urea Nitrogen 21 H Creatinine 0.45 L Est Glomerular Filtrat Rate mL/min Glucose Level 144 Calcium Level 7.7 L Magnesium Level 1.9 Test 07/30/18 06:24 07/30/18 08:11 Bedside Glucose 158 156 Medications Medication Current Medications Sodium Chloride 1,000 ml @ 60 mls/hr [id number] IV Last administered on 07/30/18at 07:28; Admin Dose 60 MLS/HR; Start 07/25/18 at 22:43 IV Flush (NS 3 ml) 3 ml PER PROTOCOL IV ; Start 07/25/18 at 23:00 Ondansetron HCl (Zofran Inj) 4 mg Q6H PRN IV NAUSEA/VOMITING; Start 07/25/18 at 23:00 Acetaminophen (Tylenol Tab) 650 mg Q6H PRN PO .PAIN 1-3 OR TEMP; Start 07/25/18 at 23:00 Morphine Sulfate (morphine) 2 mg Q4H PRN IV .PAIN 7-10; Start 07/25/18 at 23:00 Enoxaparin Sodium (Lovenox) 30 mg DAILY SC Last administered on 07/30/18at 08:14; Admin Dose 30 MG; Start 07/26/18 at 09:00 Cefepime HCl 50 ml @ 100 mls/hr Q8 IVPB Last administered on 07/30/18at 06:25; Admin Dose 100 MLS/HR; Start 07/26/18 at 06:00 Vancomycin HCl (Vanco Iv Per Pharmacy) VANCOMYCIN PER PHARMACY PER PROTOCOL XX ; Start 07/25/18 at 23:00 Miscellaneous Information (Pending [facility] Order For Wound Care) This patient fajardo... PRN PRN XX WOUND CARE; Start 07/26/18 at 06:00 Acetaminophen (Tylenol Tab) 650 mg Q4H PRN PO MILD PAIN LEVEL 1-3; Start 07/26/18 at 11:00 Amiodarone HCl (Cordarone) 200 mg QAM PO Last administered on 07/30/18at 08:15; Admin Dose 200 MG; Start 07/26/18 at 13:00 Amlodipine Besylate (Norvasc) 5 mg DAILY PO Last administered on 07/30/18at 08:15; Admin Dose 5 MG; Start 07/26/18 at 13:00 Aspirin (Halfprin) 81 mg DAILY PO Last administered on 07/30/18at 08:15; Admin Dose 81 MG; Start 07/26/18 at 13:00 Bisacodyl (Dulcolax) 10 mg DAILY PRN PO CONSTIPATION; Start 07/26/18 at 11:00 Calcium/Vitamin D (Oyster Shell/ Vit-D (500/200)) 1 tab DAILY PO Last administered on 07/30/18at 08:14; Admin Dose 1 TAB; Start 07/26/18 at 13:00 Furosemide (Lasix) 10 mg DAILY PO Last administered on 07/30/18at 08:14; Admin Dose 10 MG; Start 07/26/18 at 13:00 Lisinopril (Zestril) 40 mg DAILY@1400 PO Last administered on 07/27/18at 13:48; Admin Dose 40 MG; Start 07/26/18 at 16:00 Magnesium Hydroxide (Milk Of Mag) 30 ml QHS PRN PO CONSTIPATION; Start 07/26/18 at 11:00 Nitroglycerin (Nitroglycerin (Sl Tab) 0.4 Mg) 1 tab Q5M PRN SL CHEST PAIN; Start 07/26/18 at 11:00 Valproate Sodium (Depakene Liquid Cup) 125 mg DAILY PO Last administered on 07/30/18at 08:16; Admin Dose 125 MG; Start 07/26/18 at 13:00 Sodium Hypochlorite (Dakins Diluted ()) 1 applic DAILY TP Last administered on 07/30/18at 08:17; Admin Dose 1 APPLIC; Start 07/27/18 at 09:00 Miscellaneous Information 1 ea NOTE XX ; Start 07/26/18 at 14:30 Glucose (Glutose) 15 gm Q15M PRN PO DECREASED GLUCOSE; Start 07/26/18 at 14:30 Glucose (Glutose) 22.5 gm Q15M PRN PO DECREASED GLUCOSE; Start 07/26/18 at 14:30 Dextrose (D50w Syringe) 25 ml Q15M PRN IV DECREASED GLUCOSE; Start 07/26/18 at 14:30 Dextrose (D50w Syringe) 50 ml Q15M PRN IV DECREASED GLUCOSE; Start 07/26/18 at 14:30 Glucagon (Glucagen) 1 mg Q15M PRN IM DECREASED GLUCOSE; Start 07/26/18 at 14:30 Glucose (Glutose) 15 gm Q15M PRN BUCCAL DECREASED GLUCOSE; Start 07/26/18 at 14:30 Diagnostic Test (Pha) (Accu-Chek) 1 ea 02 XX Last administered on 07/28/18at 01:47; Admin Dose 1 EA; Start 07/27/18 at 02:00 Mupirocin (Bactroban) 1 applic BID TOP Last administered on 07/30/18 08:16; Admin Dose 1 APPLIC; Start 07/27/18 at 17:00 Quetiapine Fumarate (Seroquel) 25 mg BID GTB Last administered on 07/30/18 08:15; Admin Dose 25 MG; Start 07/28/18 at 00:00 Insulin Glargine (Lantus) 10 units DAILY@0800 SC Last administered on 07/30/18 08:13; Admin Dose 10 UNITS; Start 07/28/18 at 08:00 Amiodarone HCl (Cordarone) 100 mg QHS GTB Last administered on 07/29/18 23:06; Admin Dose 100 MG; Start 07/28/18 at 22:00 Memantine (Namenda) 5 mg BID GTB Last administered on 07/30/18 08:14; Admin Dose 5 MG; Start 07/28/18 at 22:00 Metoprolol Tartrate (Lopressor) 25 mg BID GTB Last administered on 07/30/18 08:16; Admin Dose 25 MG; Start 07/28/18 at 22:00 Saccharomyces Boulardii (Florastor) 250 mg BID GTB Last administered on 07/30 08:16; Admin Dose 250 MG; Start 07/28/18 at 22:00 Terazosin HCl (Hytrin) 1 mg HS GTB Last administered on 07/29/18 23:06; Admin Dose 1 MG; Start 07/28/18 at 22:00 Valproate Sodium (Depakene Liquid Cup) 250 mg QPM GTB Last administered on 07/29/18 23:05; Admin Dose 250 MG; Start 07/28/18 at 22:00 Insulin Aspart (Novolog Insulin Pen) (Adult SC Insulin - Mild Algorithm)... Q6 SC Last administered on 07/30/18 06:25; Admin Dose 1 UNIT; Start 07/29/18 at 06:00 Lansoprazole (Prevacid) 30 mg DAILY@06 GTB Last administered on 07/30/18 06:25; Admin Dose 30 MG; Start 07/29/18 at 06:26 Vancomycin HCl 1.5 gm/Sodium Chloride 250 ml @ 83.333 mls/ hr Q24H IVPB Last administered on 07/30/18 11:05; Admin Dose 83.333 MLS/HR; Start 07/30/18 at 11:00 SHAHANA TERRAZAS DPM Jul 30, 2018 11:14
--- NOTE | 2018-07-30 13:47 | PREAC ---
Date/Time of Note Date/Time of Note DATE: 07/30/18 TIME: 13:47 Anesthesia Eval and Record Evaluation Time Pre-Procedure Interview DATE: 07/30/18 TIME: 13:47 Age 87 Sex male NPO: 8 hrs (NPO starting 07/31/18 was ordered by primary team, anesthesia provider to confirm. ) Preoperative diagnosis gangrene bilateral foot, PVD, daiabetes Planned procedure bilateral foot debridement Past Medical History Past Medical History: Includes Cardio: HTN, Arrythmia Endo: Diabetes Pulm: Other (possible aspiration PNA) Neuro: Other (dementia aaox1) Heme: Anemia Infection(s): Other (sepsis on admission, bilateral foot gangrene ) Surgery & Anesthesia Issues No known issue Meds Anticoagulation: Yes (ASA 81 mg ) Beta Yevgeniy within 24 hr: No Reason Beta Yevgeniy not given: Pt. not on B-Yevgeniy Reported Medications Calcium Carbonate/Vitamin D3 (OYSTER SHELL 500 MG + VIT D TB) 1 Each Tablet, 1 EACH PO Q5PM, TAB 04/13/18 Memantine* (Namenda*) 5 Mg Tablet, 5 MG PO BID, #60 TAB 04/13/18 Furosemide* (Furosemide*) 20 Mg Tablet, 10 MG PO Q9AM, #60 TAB 04/13/18 Terazosin Hcl* (Hytrin*) 1 Mg Cap, 1 MG PO HS, CAP 04/13/18 Saccharomyces Boulardii* (Florastor*) 250 Mg Cap, 250 MG PO BID, CAP 04/13/18 Cranberry Extract (Cranberry) 425 Mg Capsule, 425 MG PO Q9AM, CAP 04/13/18 Aspirin* (Aspirin* EC) 81 Mg Tablet.dr, 81 MG PO DAILY, TAB 04/13/18 Amiodarone Hcl* (Amiodarone Hcl*) 200 Mg Tablet, 200 MG PO QAM, #30 TAB HOLD IF HR<60 04/13/18 Lisinopril* (Lisinopril*) 40 Mg Tablet, 40 MG PO DAILY, #30 TAB HOLD IF SBP<120 AND HR<60 04/13/18 Hydrochlorothiazide* (Hydrochlorothiazide*) 50 Mg Tab, 50 MG PO DAILY, #30 TAB 04/13/18 Valproic Acid* (Valproic Acid* Liq) 250 Mg/5 Ml Syrup, 5 ML PO Q9PM, ML 04/13/18 Valproic Acid* (Valproic Acid* Liq) 250 Mg/5 Ml Syrup, 2.5 ML PO Q9AM, ML 04/13/18 Nitroglycerin* (Nitroglycerin* SL) 0.4 Mg Tab.subl, 0.4 MG SL Q5MIN PRN for CHEST PAIN, BOTTLE 04/13/18 Multivitamin with Minerals (Multivitamins with Minerals) 1 Each Tablet, 1 EACH PO Q9AM, TAB 04/13/18 Amlodipine Besylate* (Norvasc*) 5 Mg Tablet, 5 MG PO Q9AM, TAB HOLD IF SBP<118 04/13/18 Amiodarone Hcl* (Amiodarone Hcl*) 100 Mg Tablet, 100 MG PO QHS, #30 TAB HOLD IF HR<60 04/13/18 Na Phos,M-B/Na Phos,Di-Ba (Fleet Enema Extra) 230 Ml Enema, 230 ML RC NEEDED, ENEMA 04/13/18 Acetaminophen* (Tylenol*) 325 Mg Tablet, 650 MG PO Q4H PRN for MILD PAIN LEVEL 1-3, TAB AND FEVER>100F 04/13/18 Magnesium Hydroxide* (Milk Of Magnesia*) 400 Mg/5 Ml Oral.susp, 30 ML PO QHS PRN for NEEDED, ML 04/13/18 Bisacodyl* (Bisacodyl*) 5 Mg Tablet.dr, 10 MG PO DAILY PRN for CONSTIPATION, TAB 04/13/18 Current Medications Sodium Chloride 1,000 ml @ 60 mls/hr [id number] IV Last administered on 07/30/18at 07:28; Admin Dose 60 MLS/HR; Start 07/25/18 at 22:43 IV Flush (NS 3 ml) 3 ml PER PROTOCOL IV ; Start 07/25/18 at 23:00 Ondansetron HCl (Zofran Inj) 4 mg Q6H PRN IV NAUSEA/VOMITING; Start 07/25/18 at 23:00 Acetaminophen (Tylenol Tab) 650 mg Q6H PRN PO .PAIN 1-3 OR TEMP; Start 07/25/18 at 23:00 Morphine Sulfate (morphine) 2 mg Q4H PRN IV .PAIN 7-10; Start 07/25/18 at 23:00 Enoxaparin Sodium (Lovenox) 30 mg DAILY SC Last administered on 07/30/18 08:14; Admin Dose 30 MG; Start 07/26/18 at 09:00 Cefepime HCl 50 ml @ 100 mls/hr Q8 IVPB Last administered on 07/30/18 06:25; Admin Dose 100 MLS/HR; Start 07/26/18 at 06:00 Vancomycin HCl (Vanco Iv Per Pharmacy) VANCOMYCIN PER PHARMACY PER PROTOCOL XX ; Start 07/25/18 at 23:00 Miscellaneous Information (Pending Santyl Order For Wound Care) This patient fajardo ... PRN PRN XX WOUND CARE; Start 07/26/18 at 06:00 Acetaminophen (Tylenol Tab) 650 mg Q4H PRN PO MILD PAIN LEVEL 1-3 Last administered on 07/30/18 11:54; Admin Dose 650 MG; Start 07/26/18 at 11:00 Amiodarone HCl (Cordarone) 200 mg QAM PO Last administered on 07/30/18 08:15; Admin Dose 200 MG; Start 07/26/18 at 13:00 Amlodipine Besylate (Norvasc) 5 mg DAILY PO Last administered on 07/30/18at 0 8:15; Admin Dose 5 MG; Start 07/26/18 at 13:00 Aspirin (Halfprin) 81 mg DAILY PO Last administered on 07/30/18 08:15; Admin Dose 81 MG; Start 07/26/18 at 13:00 Bisacodyl (Dulcolax) 10 mg DAILY PRN PO CONSTIPATION; Start 07/26/18 at 11:00 Calcium/Vitamin D (Oyster Shell/ Vit-D (500/200)) 1 tab DAILY PO Last administered on 07/30/18 08:14; Admin Dose 1 TAB; Start 07/26/18 at 13:00 Furosemide (Lasix) 10 mg DAILY PO Last administered on 07/30/18 08:14; Admin Dose 10 MG; Start 07/26/18 at 13:00 Lisinopril (Zestril) 40 mg DAILY@1400 PO Last administered on 07/27/18 13:48; Admin Dose 40 MG; Start 07/26/18 at 16:00 Magnesium Hydroxide (Milk Of Mag) 30 ml QHS PRN PO CONSTIPATION; Start 07/26/18 at 11:00 Nitroglycerin (Nitroglycerin (Sl Tab) 0.4 Mg) 1 tab Q5M PRN SL CHEST PAIN; Start 07/26/18 at 11:00 Valproate Sodium (Depakene Liquid Cup) 125 mg DAILY PO Last administered on 07/30/18at 08:16; Admin Dose 125 MG; Start 07/26/18 at 13:00 Sodium Hypochlorite (Dakins Diluted ()) 1 applic DAILY TP Last administered on 07/30/18at 08:17; Admin Dose 1 APPLIC; Start 07/27/18 at 09:00 Miscellaneous Information 1 ea NOTE XX ; Start 07/26/18 at 14:30 Glucose (Glutose) 15 gm Q15M PRN PO DECREASED GLUCOSE; Start 07/26/18 at 14:30 Glucose (Glutose) 22.5 gm Q15M PRN PO DECREASED GLUCOSE; Start 07/26/18 at 14:30 Dextrose (D50w Syringe) 25 ml Q15M PRN IV DECREASED GLUCOSE; Start 07/26/18 at 14:30 Dextrose (D50w Syringe) 50 ml Q15M PRN IV DECREASED GLUCOSE; Start 07/26/18 at 14:30 Glucagon (Glucagen) 1 mg Q15M PRN IM DECREASED GLUCOSE; Start 07/26/18 at 14:30 Glucose (Glutose) 15 gm Q15M PRN BUCCAL DECREASED GLUCOSE; Start 07/26/18 at 14:30 Diagnostic Test (Pha) (Accu-Chek) 1 ea 02 XX Last administered on 07/28/18at 01:47; Admin Dose 1 EA; Start 07/27/18 at 02:00 Mupirocin (Bactroban) 1 applic BID TOP Last administered on 07/30/18at 08:16; Admin Dose 1 APPLIC; Start 07/27/18 at 17:00 Quetiapine Fumarate (Seroquel) 25 mg BID GTB Last administered on 07/30/18at 08:15; Admin Dose 25 MG; Start 07/28/18 at 00:00 Insulin Glargine (Lantus) 10 units DAILY@0800 SC Last administered on 07/30/18at 08:13; Admin Dose 10 UNITS; Start 07/28/18 at 08:00 Amiodarone HCl (Cordarone) 100 mg QHS GTB Last administered on 07/29/18 23:06; Admin Dose 100 MG; Start 07/28/18 at 22:00 Memantine (Namenda) 5 mg BID GTB Last administered on 07/30/18 08:14; Admin Dose 5 MG; Start 07/28/18 at 22:00 Metoprolol Tartrate (Lopressor) 25 mg BID GTB Last administered on 07/30/18 08:16; Admin Dose 25 MG; Start 07/28/18 at 22:00 Saccharomyces Boulardii (Florastor) 250 mg BID GTB Last administered on 07/30/18 08:16; Admin Dose 250 MG; Start 07/28/18 at 22:00 Terazosin HCl (Hytrin) 1 mg HS GTB Last administered on 07/29/18 23:06; Admin Dose 1 MG; Start 07/28/18 at 22:00 Valproate Sodium (Depakene Liquid Cup) 250 mg QPM GTB Last administered on 07/29/18 23:05; Admin Dose 250 MG; Start 07/28/18 at 22:00 Insulin Aspart (Novolog Insulin Pen) (Adult SC Insulin - Mild Algorithm)... Q6 SC Last administered on 07/30/18 11:56; Admin Dose 1 UNIT; Start 07/29/18 at 06:00 Lansoprazole (Prevacid) 30 mg DAILY@06 GTB Last administered on 07/30/18 06:25; Admin Dose 30 MG; Start 07/29/18 at 06:26 Vancomycin HCl 1.5 gm/Sodium Chloride 250 ml @ 83.333 mls/ hr Q24H IVPB Last administered on 07/30/18 11:05; Admin Dose 83.333 MLS/HR; Start 07/30/18 at 11:00 Meds reviewed: Yes Allergies Coded Allergies: No Known Allergy (Unverified , 04/26/18) Allergies Reviewed: Yes Labs/Studies Labs Reviewed: Reviewed by anesthesiologist Result Diagram: 07/30/18 0556 07/30/18 0556 Laboratory Tests 07/30/18 05:56 test: N/A Studies: ECG (sinus tachycardia), CXR (Right lower lobe infiltrate and atelectasis), 2D Echo (07/26/18 EF 60% normal pericardium) Pre-procedure Exam Last vitals Vital Signs Date Temp Pulse Resp B/P (MAP) Pulse Ox O2 O2 Flow FiO2 Time Delivery Rate 07/30/18 Nasal 2.0 10:35 Cannula 07/30/18 98.8 76 20 114/56 92 07:58 (75) Airway: Adequate mouth opening (unable to assess, dementia), Adequate thyromental dist (unable to assess, dementia ) Mallampati: Mallampati I (unable to assess, dementia ) Teeth: Normal (unable to assess, dementia ) Lung: Normal Heart: Normal ASA Physical Status ASA physical status: 3 Emergency: None Planned Anesthetic General/MAC: MAC, TIVA, Other (Conservator [facility] [employer] [facility] [employer], wishes to suspend DNR intraoperatively, gave permission to intubate patient and/or give life-saving medicines intraoperatively.) Planned Pain Management Parenteral pain med, Local by surgeon Pre-operative Attestations Prior to commencing anesthesia and surgery, the patient was re-evaluated, there was verification of: *The patient's identity *The results of appropriate recent lab work and preoperative vital signs *The above evaluation not changing prior to induction *Anesthetic plan, risk benefits, alternative and complications discussed with patient/family; questions answered; patient/family understands, accepts and w ishes to proceed. AILYN STODDARD Jul 30, 2018 13:47
[2018-07-30] MEDS: LISINOPRIL 20 MG TAB PO SCH (14:15)
--- NOTE | 2018-07-30 14:25 | CONS ---
Assessment/Plan Assessment/Plan Hospital Course (Demo Recall) No acute events, patient looks comfortable, afebrile BUN 21 creatinine 0.45 WBC 15.9 platelets 393 neutrophils 78 Microbiology: Blood cultures remain negative. Bilateral lower extremities cul tures growing MRSA, enterococcus, E. coli Antimicrobials: Vancomycin, cefepime Physical examination: Chronically ill-appearing debilitated elderly man in no distress. Head atraumatic normocephalic neck is supple chest rise symmetrical breath sounds diminished bases. Heart: S1-S2. Abdomen soft bowel sounds present. Extremities with bilateral lower extremities dressing intact Assessment: 1. Sepsis, present on admission 2. 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 Diabetes with diabetic neuropathy 4. Aspiration pneumonia 5. Dementia Plan: Remains unchanged, on appropriate antibiotics, continue aspiration precautions, follow podiatry and pulmonary recommendations Consultation Date/Type/Reason Admit Date/Time Jul 25, 2018 at 22:41 Initial Consult Date 07/26/18 Type of Consult id Date/Time of Note DATE: 07/30/18 TIME: 14:25 Exam/Review of Systems Exam Vitals Vital Signs Date Temp Pulse Resp B/P (MAP) Pulse Ox O2 O2 Flow FiO2 Time Delivery Rate 07/30/18 Nasal 2.0 10:35 Cannula 07/30/18 98.8 76 20 114/56 92 07:58 (75) Intake and Output 07/29/18 07/29/18 07/30/18 1515:00 23:00 07:00 IntakeIntake Total 300 ml 1015 ml 1100 ml OutputOutput Total 1300 ml 900 ml BalanceBalance -1000 ml 1015 ml 200 ml Results Result Diagram: 07/30/18 0556 07/30/18 0556 Results 24hrs Laboratory Tests Test 07/29/18 17:17 07/30/18 01:19 07/30/18 05:56 07/30/18 06:24 Bedside Glucose 141 153 158 White Blood Count 15.9 H Red Blood Count 3.40 L Hemoglobin 9.3 L Hematocrit 30.1 L Mean Corpuscular 88.5 Volume Mean Corpuscular 27.4 L Hemoglobin Mean Corpuscular 30.9 L Hemoglobin Concent Red Cell 15.7 H Distribution Width Platelet Count 393 Mean Platelet Volume 11.2 H Immature 7.100 H Granulocytes % Neutrophils % Segmented 78 H Neutrophils % (Manual) Lymphocytes % Lymphocytes % 6 L (Manual) Reactive Lymphocytes 2 H % (Manual) Monocytes % Monocytes % (Manual) 7 Eosinophils % Eosinophils % 1 (Manual) Basophils % Basophils % (Manual) 2 Metamyelocytes % 2 H (manual) Myelocytes % 2 H (Manual) Nucleated Red Blood 0.0 Cells % Immature 1.130 H Granulocytes # Neutrophils # Lymphocytes (Manual) 0.9 Lymphocytes # Reactive Lymphocytes 0.3 H # Monocytes # Monocytes # (Manual) 1.1 H Eosinophils # Basophils # Basophils # (Manual) 0.3 H Metamyelocytes # 0.3 H Myelocytes # 0.3 H Nucleated Red Blood Cells # Platelet Estimate NORMAL Polychromasia 3+ Poikilocytosis 1+ Anisocytosis 1+ Microcytosis 1+ Sodium Level 142 Potassium Level 3.2 L Chloride Level 108 Carbon Dioxide Level 29 Anion Gap 5 Blood Urea Nitrogen 21 H Creatinine 0.45 L Est Glomerular Filtrat Rate mL/min Glucose Level 144 Calcium Level 7.7 L Magnesium Level 1.9 Test 07/30/18 08:11 07/30/18 11:53 Bedside Glucose 156 163 Medications Medication Current Medications Sodium Chloride 1,000 ml @ 60 mls/hr [id number] IV Last administered on 07/30/18at 07:28; Admin Dose 60 MLS/HR; Start 07/25/18 at 22:43 IV Flush (NS 3 ml) 3 ml PER PROTOCOL IV ; Start 07/25/18 at 23:00 Ondansetron HCl (Zofran Inj) 4 mg Q6H PRN IV NAUSEA/VOMITING; Start 07/25/18 at 23:00 Acetaminophen (Tylenol Tab) 650 mg Q6H PRN PO .PAIN 1-3 OR TEMP; Start 07/25/18 at 23:00 Morphine Sulfate (morphine) 2 mg Q4H PRN IV .PAIN 7-10; Start 07/25/18 at 23:00 Enoxaparin Sodium (Lovenox) 30 mg DAILY SC Last administered on 07/30/18at 08 :14; Admin Dose 30 MG; Start 07/26/18 at 09:00 Cefepime HCl 50 ml @ 100 mls/hr Q8 IVPB Last administered on 07/30/18at 14:14; Admin Dose 100 MLS/HR; Start 07/26/18 at 06:00 Vancomycin HCl (Vanco Iv Per Pharmacy) VANCOMYCIN PER PHARMACY PER PROTOCOL XX ; Start 07/25/18 at 23:00 Miscellaneous Information (Pending Santyl Order For Wound Care) This patient fajardo... PRN PRN XX WOUND CARE; Start 07/26/18 at 06:00 Acetaminophen (Tylenol Tab) 650 mg Q4H PRN PO MILD PAIN LEVEL 1-3 Last administered on 07/30/18at 11:54; Admin Dose 650 MG; Start 07/26/18 at 11:00 Amiodarone HCl (Cordarone) 200 mg QAM PO Last administered on 07/30/18 08:15; Admin Dose 200 MG; Start 07/26/18 at 13:00 Amlodipine Besylate (Norvasc) 5 mg DAILY PO Last administered on 07/30/18 08:15; Admin Dose 5 MG; Start 07/26/18 at 13:00 Aspirin (Halfprin) 81 mg DAILY PO Last administered on 07/30/18 08:15; Admin Dose 81 MG; Start 07/26/18 at 13:00 Bisacodyl (Dulcolax) 10 mg DAILY PRN PO CONSTIPATION; Start 07/26/18 at 11:00 Calcium/Vitamin D (Oyster Shell/ Vit-D (500/200)) 1 tab DAILY PO Last administered on 07/30/18 08:14; Admin Dose 1 TAB; Start 07/26/18 at 13:00 Furosemide (Lasix) 10 mg DAILY PO Last administered on 07/30/18 08:14; Admin Dose 10 MG; Start 07/26/18 at 13:00 Lisinopril (Zestril) 40 mg DAILY@1400 PO Last administered on 07/30/18 14:15; Admin Dose 40 MG; Start 07/26/18 at 16:00 Magnesium Hydroxide (Milk Of Mag) 30 ml QHS PRN PO CONSTIPATION; Start 07/26/18 at 11:00 Nitroglycerin (Nitroglycerin (Sl Tab) 0.4 Mg) 1 tab Q5M PRN SL CHEST PAIN; Start 07/26/18 at 11:00 Valproate Sodium (Depakene Liquid Cup) 125 mg DAILY PO Last administered on 07/30/18 08:16; Admin Dose 125 MG; Start 07/26/18 at 13:00 Sodium Hypochlorite (Dakins Diluted (40)) 1 applic DAILY TP Last administered on 07/30/18at 08:17; Admin Dose 1 APPLIC; Start 07/27/18 at 09:00 Miscellaneous Information 1 ea NOTE XX ; Start 07/26/18 at 14:30 Glucose (Glutose) 15 gm Q15M PRN PO DECREASED GLUCOSE; Start 07/26/18 at 14:30 Glucose (Glutose) 22.5 gm Q15M PRN PO DECREASED GLUCOSE; Start 07/26/18 at 14:30 Dextrose (D50w Syringe) 25 ml Q15M PRN IV DECREASED GLUCOSE; Start 07/26/18 at 14:30 Dextrose (D50w Syringe) 50 ml Q15M PRN IV DECREASED GLUCOSE; Start 07/26/18 at 14:30 Glucagon (Glucagen) 1 mg Q15M PRN IM DECREASED GLUCOSE; Start 07/26/18 at 14:30 Glucose (Glutose) 15 gm Q15M PRN BUCCAL DECREASED GLUCOSE; Start 07/26/18 at 14:30 Diagnostic Test (Pha) (Accu-Chek) 1 ea 02 XX Last administered on 07/28/18at 01:47; Admin Dose 1 EA; Start 07/27/18 at 02:00 Mupirocin (Bactroban) 1 applic BID TOP Last administered on 07/30/18 08:16; Admin Dose 1 APPLIC; Start 07/27/18 at 17:00 Quetiapine Fumarate (Seroquel) 25 mg BID GTB Last administered on 07/30/18at 08:15; Admin Dose 25 MG; Start 07/28/18 at 00:00 Insulin Glargine (Lantus) 10 units DAILY@0800 SC Last administered on 07/30/18at 08:13; Admin Dose 10 UNITS; Start 07/28/18 at 08:00 Amiodarone HCl (Cordarone) 100 mg QHS GTB Last administered on 07/29/18at 23:06; Admin Dose 100 MG; Start 07/28/18 at 22:00 Memantine (Namenda) 5 mg BID GTB Last administered on 07/30/18at 08:14; Admin Dose 5 MG; Start 07/28/18 at 22:00 Metoprolol Tartrate (Lopressor) 25 mg BID GTB Last administered on 07/30/18at 08:16; Admin Dose 25 MG; Start 07/28/18 at 22:00 Saccharomyces Boulardii (Florastor) 250 mg BID GTB Last administered on 07/30/18at 08:16; Admin Dose 250 MG; Start 07/28/18 at 22:00 Terazosin HCl (Hytrin) 1 mg HS GTB Last administered on 07/29/18at 23:06; Admin Dose 1 MG; Start 07/28/18 at 22:00 Valproate Sodium (Depakene Liquid Cup) 250 mg QPM GTB Last administered on 07/29/18at 23:05; Admin Dose 250 MG; Start 07/28/18 at 22:00 Insulin Aspart (Novolog Insulin Pen) (Adult SC Insulin - Mild Algorithm)... Q6 SC Last administered on 07/30/18at 11:56; Admin Dose 1 UNIT; Start 07/29/18 at 06:00 Lansoprazole (Prevacid) 30 mg DAILY@06 GTB Last administered on 07/30/18 06:25; Admin Dose 30 MG; Start 07/29/18 at 06:26 Vancomycin HCl 1.5 gm/Sodium Chloride 250 ml @ 83.333 mls/ hr Q24H IVPB Last administered on 07/30/18 11:05; Admin Dose 83.333 MLS/HR; Start 07/30/18 at 11:00 JAMIE WORRELL NP Jul 30, 2018 14:25
[2018-07-30 14:58] VITALS: BP 116/60; PULSE 78; RESP 20
[2018-07-30] MEDS ORDERED: POTASSIUM CHLORIDE 20 MEQ POWDER FOR ORAL SOLN GTB ONE (18:30)
[2018-07-30] MEDS: D5W-0.45 NACL + KCL 20 MEQ 1,000 ML IV SCH (18:30)
--- NOTE | 2018-07-30 18:30 | PN ---
Date/Time of Note Date/Time of Note DATE: 07/30/18 TIME: 18:27 Assessment/Plan VTE Prophylaxis Risk score (from [facility])>0 risk: 7 SCD applied (from [facility]): No SCD contraindicated: other Pharmacological prophylaxis: LMWH Lines/Catheters IV C[facility]ter Type (from [facility]): Mid Line Central line still needed: Yes Urinary Cath still in place: Yes Reason Cath still needed: urinary retention Assessment/Plan Hospital Course Patient is awake alert, remains hemodynamically stable, no fever, plan for bilateral food necrotic wound debridement tomorrow. Assessment/Plan - Sepsis due to bilateral foot gangrene. Right foot cellulitic lesion, questionable osteomyelitis. Continue vancomycin and cefepime. Dr. Palomino is following in infection disease consultation. - Bilateral foot gangrene. Dr. Roberts is following in podiatry consultation. Plan for debridement. 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 - Peripheral vascular disease. Status post evaluation by Dr. Horne in vascular surgery consultation, no aggressive treatment is recommended. - Possible Aspiration PNA - Paroxysmal atrial fibrillation. Regular hear rate. Continue amiodarone, aspirin, BB. Dr. Castrejon is following in cardiology consultation. - Diabetes. Continue NovoLog. - Dysphagia. Continue G-tube feeding. - Dementia with behavioral disturbances. Continue Namenda and Seroquel. - DNR status Further recommendation would depend on the patient's hospital course. Plan of care discussed with Dr Figueroa. Result Diagram: 07/30/18 0556 07/30/18 0556 Results 24hrs Laboratory Tests Test 07/30/18 01:19 07/30/18 05:56 07/30/18 06:24 07/30/18 08:11 Bedside Glucose 153 158 156 White Blood Count 15.9 H Red Blood Count 3.40 L Hemoglobin 9.3 L Hematocrit 30.1 L Mean Corpuscular 88.5 Volume Mean Corpuscular 27.4 L Hemoglobin Mean Corpuscular 30.9 L Hemoglobin Concent Red Cell 15.7 H Distribution Width Platelet Count 393 Mean Platelet Volume 11.2 H Immature 7.100 H Granulocytes % Neutrophils % Segmented 78 H Neutrophils % (Manual) Lymphocytes % Lymphocytes % 6 L (Manual) Reactive Lymphocytes 2 H % (Manual) Monocytes % Monocytes % (Manual) 7 Eosinophils % Eosinophils % 1 (Manual) Basophils % Basophils % (Manual) 2 Metamyelocytes % 2 H (manual) Myelocytes % 2 H (Manual) Nucleated Red Blood 0.0 Cells % Immature 1.130 H Granulocytes # Neutrophils # Lymphocytes (Manual) 0.9 Lymphocytes # Reactive Lymphocytes 0.3 H # Monocytes # Monocytes # (Manual) 1.1 H Eosinophils # Basophils # Basophils # (Manual) 0.3 H Metamyelocytes # 0.3 H Myelocytes # 0.3 H Nucleated Red Blood Cells # Platelet Estimate NORMAL Polychromasia 3+ Poikilocytosis 1+ Anisocytosis 1+ Microcytosis 1+ Sodium Level 142 Potassium Level 3.2 L Chloride Level 108 Carbon Dioxide Level 29 Anion Gap 5 Blood Urea Nitrogen 21 H Creatinine 0.45 L Est Glomerular Filtrat Rate mL/min Glucose Level 144 Calcium Level 7.7 L Magnesium Level 1.9 Test 07/30/18 11:53 07/30/18 17:27 Bedside Glucose 163 147 Exam/Review of Systems Exam Vitals Vital Signs Date Temp Pulse Resp B/P (MAP) Pulse Ox O2 O2 Flow FiO2 Time Delivery Rate 07/30/18 98.0 78 20 116/60 92 Room Air 14:58 (78) 07/30/18 2.0 10:35 Intake and Output 07/29/18 07/29/18 07/30/18 1414:59 22:59 06:59 IntakeIntake Total 300 ml 1015 ml 1100 ml OutputOutput Total 1300 ml 900 ml BalanceBalance -1000 ml 1015 ml 200 ml Exam Constitutional: alert, frail Respiratory: diminished breath sounds Cardiovascular: nl pulses Gastrointestinal: soft, non-tender, other (GT) Extremities: other (contracted) Skin: other (bilateral foot ulcers) Results Results 24hrs Laboratory Tests Test 07/30/18 01:19 07/30/18 05:56 07/30/18 06:24 07/30/18 08:11 Bedside Glucose 153 158 156 White Blood Count 15.9 H Red Blood Count 3.40 L Hemoglobin 9.3 L Hematocrit 30.1 L Mean Corpuscular 88.5 Volume Mean Corpuscular 27.4 L Hemoglobin Mean Corpuscular 30.9 L Hemoglobin Concent Red Cell 15.7 H Distribution Width Platelet Count 393 Mean Platelet Volume 11.2 H Immature 7.100 H Granulocytes % Neutrophils % Segmented 78 H Neutrophils % (Manual) Lymphocytes % Lymphocytes % 6 L (Manual) Reactive Lymphocytes 2 H % (Manual) Monocytes % Monocytes % (Manual) 7 Eosinophils % Eosinophils % 1 (Manual) Basophils % Basophils % (Manual) 2 Metamyelocytes % 2 H (manual) Myelocytes % 2 H (Manual) Nucleated Red Blood 0.0 Cells % Immature 1.130 H Granulocytes # Neutrophils # Lymphocytes (Manual) 0.9 Lymphocytes # Reactive Lymphocytes 0.3 H # Monocytes # Monocytes # (Manual) 1.1 H Eosinophils # Basophils # Basophils # (Manual) 0.3 H Metamyelocytes # 0.3 H Myelocytes # 0.3 H Nucleated Red Blood Cells # Platelet Estimate NORMAL Polychromasia 3+ Poikilocytosis 1+ Anisocytosis 1+ Microcytosis 1+ Sodium Level 142 Potassium Level 3.2 L Chloride Level 108 Carbon Dioxide Level 29 Anion Gap 5 Blood Urea Nitrogen 21 H Creatinine 0.45 L Est Glomerular Filtrat Rate mL/min Glucose Level 144 Calcium Level 7.7 L Magnesium Level 1.9 Test 07/30/18 11:53 07/30/18 17:27 Bedside Glucose 163 147 Medications Medication Current Medications Sodium Chloride 1,000 ml @ 60 mls/hr [id number] IV Last administered on 07/30/18at 07:28; Admin Dose 60 MLS/HR; Start 07/25/18 at 22:43 IV Flush (NS 3 ml) 3 ml PER PROTOCOL IV ; Start 07/25/18 at 23:00 Ondansetron HCl (Zofran Inj) 4 mg Q6H PRN IV NAUSEA/VOMITING; Start 07/25/18 at 23:00 Acetaminophen (Tylenol Tab) 650 mg Q6H PRN PO .PAIN 1-3 OR TEMP; Start 07/25/18 at 23:00 Morphine Sulfate (morphine) 2 mg Q4H PRN IV .PAIN 7-10; Start 07/25/18 at 23:00 Enoxaparin Sodium (Lovenox) 30 mg DAILY SC Last administered on 07/30/18at 08:14; Admin Dose 30 MG; Start 07/26/18 at 09:00 Cefepime HCl 50 ml @ 100 mls/hr Q8 IVPB Last administered on 07/30/18at 14:14; Admin Dose 100 MLS/HR; Start 07/26/18 at 06:00 Vancomycin HCl (Vanco Iv Per Pharmacy) VANCOMYCIN PER PHARMACY PER PROTOCOL XX ; Start 07/25/18 at 23:00 Miscellaneous Information (Pending Santyl Order For Wound Care) This patient fajardo... PRN PRN XX WOUND CARE; Start 07/26/18 at 06:00 Acetaminophen (Tylenol Tab) 650 mg Q4H PRN PO MILD PAIN LEVEL 1-3 Last administered on 07/30/18at 11:54; Admin Dose 650 MG; Start 07/26/18 at 11:00 Amiodarone HCl (Cordarone) 200 mg QAM PO Last administered on 07/30/18 08:15; Admin Dose 200 MG; Start 07/26/18 at 13:00 Amlodipine Besylate (Norvasc) 5 mg DAILY PO Last administered on 07/30/18 08:15; Admin Dose 5 MG; Start 07/26/18 at 13:00 Aspirin (Halfprin) 81 mg DAILY PO Last administered on 07/30/18 08:15; Admin Dose 81 MG; Start 07/26/18 at 13:00 Bisacodyl (Dulcolax) 10 mg DAILY PRN PO CONSTIPATION; Start 07/26/18 at 11:00 Calcium/Vitamin D (Oyster Shell/ Vit-D (500/200)) 1 tab DAILY PO Last administered on 07/30/18 08:14; Admin Dose 1 TAB; Start 07/26/18 at 13:00 Furosemide (Lasix) 10 mg DAILY PO Last administered on 07/30/18 08:14; Admin Dose 10 MG; Start 07/26/18 at 13:00 Lisinopril (Zestril) 40 mg DAILY@1400 PO Last administered on 07/30/18 14:15; Admin Dose 40 MG; Start 07/26/18 at 16:00 Magnesium Hydroxide (Milk Of Mag) 30 ml QHS PRN PO CONSTIPATION; Start 07/26/18 at 11:00 Nitroglycerin (Nitroglycerin (Sl Tab) 0.4 Mg) 1 tab Q5M PRN SL CHEST PAIN; Start 07/26/18 at 11:00 Valproate Sodium (Depakene Liquid Cup) 125 mg DAILY PO Last administered on 07/30/18 08:16; Admin Dose 125 MG; Start 07/26/18 at 13:00 Sodium Hypochlorite (Dakins Diluted ()) 1 applic DAILY TP Last administered on 07/30/18at 08:17; Admin Dose 1 APPLIC; Start 07/27/18 at 09:00 Miscellaneous Information 1 ea NOTE XX ; Start 07/26/18 at 14:30 Glucose (Glutose) 15 gm Q15M PRN PO DECREASED GLUCOSE; Start 07/26/18 at 14:30 Glucose (Glutose) 22.5 gm Q15M PRN PO DECREASED GLUCOSE; Start 07/26/18 at 14:30 Dextrose (D50w Syringe) 25 ml Q15M PRN IV DECREASED GLUCOSE; Start 07/26/18 at 14:30 Dextrose (D50w Syringe) 50 ml Q15M PRN IV DECREASED GLUCOSE; Start 07/26/18 at 14:30 Glucagon (Glucagen) 1 mg Q15M PRN IM DECREASED GLUCOSE; Start 07/26/18 at 14:30 Glucose (Glutose) 15 gm Q15M PRN BUCCAL DECREASED GLUCOSE; Start 07/26/18 at 14:30 Diagnostic Test (Pha) (Accu-Chek) 1 ea 02 XX Last administered on 07/28/18at 01:47; Admin Dose 1 EA; Start 07/27/18 at 02:00 Mupirocin (Bactroban) 1 applic BID TOP Last administered on 07/30/18 08:16; Admin Dose 1 APPLIC; Start 07/27/18 at 17:00 Quetiapine Fumarate (Seroquel) 25 mg BID GTB Last administered on 07/30/18at 08:15; Admin Dose 25 MG; Start 07/28/18 at 00:00 Insulin Glargine (Lantus) 10 units DAILY@0800 SC Last administered on 07/30/18 08:13; Admin Dose 10 UNITS; Start 07/28/18 at 08:00 Amiodarone HCl (Cordarone) 100 mg QHS GTB Last administered on 07/29/18at 23:06; Admin Dose 100 MG; Start 07/28/18 at 22:00 Memantine (Namenda) 5 mg BID GTB Last administered on 07/30/18at 08:14; Admin Dose 5 MG; Start 07/28/18 at 22:00 Metoprolol Tartrate (Lopressor) 25 mg BID GTB Last administered on 07/30/18at 08:16; Admin Dose 25 MG; Start 07/28/18 at 22:00 Saccharomyces Boulardii (Florastor) 250 mg BID GTB Last administered on 07/30/18at 08:16; Admin Dose 250 MG; Start 07/28/18 at 22:00 Terazosin HCl (Hytrin) 1 mg HS GTB Last administered on 07/29/18at 23:06; Admin Dose 1 MG; Start 07/28/18 at 22:00 Valproate Sodium (Depakene Liquid Cup) 250 mg QPM GTB Last administered on 07/29/18at 23:05; Admin Dose 250 MG; Start 07/28/18 at 22:00 Insulin Aspart (Novolog Insulin Pen) (Adult SC Insulin - Mild Algorithm)... Q6 SC Last administered on 07/30/18at 17:29; Admin Dose 1 UNIT; Start 07/29/18 at 06:00 Lansoprazole (Prevacid) 30 mg DAILY@06 GTB Last administered on 07/30/18at 06:25; Admin Dose 30 MG; Start 07/29/18 at 06:26 Vancomycin HCl 1.5 gm/Sodium Chloride 250 ml @ 83.333 mls/ hr Q24H IVPB Last administered on 07/30/18at 11:05; Admin Dose 83.333 MLS/HR; Start 07/30/18 at 11:00 Potassium Chloride (Potassium Chloride Pwd/Soln) 40 meq ONCE ONCE GTB ; Start 07/30/18 at 18:30; Stop 07/30/18 at 18:31; Status THUAN SPARROW Jul 30, 2018 18:30
[2018-07-30 20:30] VITALS: BP 134/60; PULSE 77; RESP 18
[2018-07-30] MEDS: TERAZOSIN 1 MG CAP GTB SCH (21:00)
[2018-07-30] MEDS: AMIODARONE 200 MG TAB GTB SCH (21:01)
[2018-07-30] MEDS: VALPROIC ACID LIQUID CUP 250 MG/5 ML CUP GTB SCH (21:01)
[2018-07-30] MEDS: ACETAMINOPHEN 325 MG TAB PO PRN (23:25)
[2018-07-31] VITALS (13 sets, daily range): BP systolic 91–148; BP diastolic 42–86; PULSE 62–78; RESP 18–23
[2018-07-31] MEDS: INSULIN ASPART [NOVOLOG] 3 ML PEN SC SCH ×6 (01:00→21:00)
[2018-07-31] MEDS: D5W-0.45 NACL + KCL 20 MEQ 1,000 ML IV SCH ×2 (01:21→11:10)
[2018-07-31] MEDS: ACCUCHECK AT 2AM (Patients on SS coverage) XX SCH (02:00)
[2018-07-31] MEDS: LANSOPRAZOLE 30 MG CAP GTB SCH (06:00)
[2018-07-31] MEDS: CEFEPIME 2GM/50 ML (PMX) 50 ML IVPB SCH ×3 (06:09→23:29)
[2018-07-31] MEDS: METOPROLOL 25 MG TAB GTB SCH ×2 (09:00→23:27)
[2018-07-31] MEDS: SACCHAROMYCES BOULARDII 250 MG CAP GTB SCH ×2 (09:00→23:28)
[2018-07-31] MEDS: CALCIUM/VITAMIN D (500/200) TAB PO SCH (09:00)
[2018-07-31] MEDS: ENOXAPARIN 30 MG/0.3 ML SYG SC SCH (09:00)
[2018-07-31] MEDS: ASPIRIN (EC) 81 MG TAB PO SCH (09:00)
[2018-07-31] MEDS: AMIODARONE 200 MG TAB PO SCH (09:00)
[2018-07-31] MEDS: AMLODIPINE 5 MG TAB PO SCH (09:00)
[2018-07-31] MEDS: FUROSEMIDE 20 MG TAB PO SCH (09:00)
[2018-07-31] MEDS: INSULIN GLARGINE [LANTus] (100 UNITS/ML) SYG SC SCH (09:14)
[2018-07-31] MEDS: ACETAMINOPHEN 325 MG TAB PO PRN (09:14)
[2018-07-31] MEDS: VALPROIC ACID LIQUID CUP 250 MG/5 ML CUP PO SCH (09:15)
[2018-07-31] MEDS: QUETIAPINE 25 MG TAB GTB SCH ×2 (09:15→23:27)
[2018-07-31] MEDS: MEMANTINE 5 MG TAB GTB SCH ×2 (09:16→23:28)
[2018-07-31] MEDS: DAKINS 0.0125%(1/40) 473 ML SOLUTION TP SCH (09:19)
[2018-07-31] MEDS: BALSAM PERU/CASTOR OIL 60 GM TUBE TOP SCH ×2 (09:19→23:29)
[2018-07-31] MEDS: MUPIROCIN 2% 22 GM OINT TOP SCH ×2 (09:19→23:29)
[2018-07-31] MEDS: VANCOMYCIN HCL 1.5 GM in SOD CHLORIDE 0.9% 250 ML IVPB SCH (11:36)
--- NOTE | 2018-07-31 13:02 | CONS ---
Assessment/Plan Assessment/Plan Hospital Course (Demo Recall) No acute events, afebrile Microbiology: Blood cultures remain negative. Bilateral lower extremities cultures growing MRSA, enterococcus, E. coli Antimicrobials: Vancomycin, cefepime Physical examination: Chronically ill-appearing debilitated elderly man in no distress. Head atraumatic normocephalic neck is supple chest rise symmetrical breath sounds diminished bases. Heart: S1-S2. Abdomen soft bowel sounds present. Extremities with bilateral lower extremities dressing intact Assessment: 1. Sepsis, present on admission 2. 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 Diabetes with diabetic neuropathy 4. Aspiration pneumonia 5. Dementia Plan: Remains unchanged, on appropriate antibiotics, continue aspiration precautions, follow podiatry and pulmonary recommendations Consultation Date/Type/Reason Admit Date/Time Jul 25, 2018 at 22:41 Initial Consult Date 07/26/18 Type of Consult id Date/Time of Note DATE: 07/31/18 TIME: 13:01 Exam/Review of Systems Exam Vitals Vital Signs Date Temp Pulse Resp B/P (MAP) Pulse Ox O2 O2 Flow FiO2 Time Delivery Rate 07/31/18 98.0 73 20 98/42 (60) 95 Room Air 07:56 07/30/18 2.0 21:10 Intake and Output 07/30/18 07/30/18 07/31/18 1515:00 23:00 07:00 IntakeIntake Total 400 ml 1740 ml OutputOutput Total 1400 ml 600 ml 450 ml BalanceBalance -1000 ml 1140 ml -450 ml Results Result Diagram: 07/30/18 0556 07/30/18 0556 Results 24hrs Laboratory Tests Test 07/30/18 17:27 07/31/18 01:17 07/31/18 05:56 07/31/18 09:10 Bedside Glucose 147 127 131 141 Medications Medication Current Medications IV Flush (NS 3 ml) 3 ml PER PROTOCOL IV ; Start 07/25/18 at 23:00 Ondansetron HCl (Zofran Inj) 4 mg Q6H PRN IV NAUSEA/VOMITING; Start 07/25/18 at 23:00 Acetaminophen (Tylenol Tab) 650 mg Q6H PRN PO .PAIN 1-3 OR TEMP Last administered on 07/31/18at 09:14; Admin Dose 650 MG; Start 07/25/18 at 23:00 Morphine Sulfate (morphine) 2 mg Q4H PRN IV .PAIN 7-10; Start 07/25/18 at 23:00 Enoxaparin Sodium (Lovenox) 30 mg DAILY SC Last administered on 07/30/18 08:14; Admin Dose 30 MG; Start 07/26/18 at 09:00 Cefepime HCl 50 ml @ 100 mls/hr Q8 IVPB Last administered on 07/31/18at 06:09; Admin Dose 100 MLS/HR; Start 07/26/18 at 06:00 Vancomycin HCl (Vanco Iv Per Pharmacy) VANCOMYCIN PER PHARMACY PER PROTOCOL XX ; Start 07/25/18 at 23:00 [facility] This patient fajardo... PRN PRN XX WOUND CARE; Start 07/26/18 at 06:00 Acetaminophen (Tylenol Tab) 650 mg Q4H PRN PO MILD PAIN LEVEL 1-3 Last administered on 07/30/18at 11:54; Admin Dose 650 MG; Start 07/26/18 at 11:00 Amiodarone HCl (Cordarone) 200 mg QAM PO Last administered on 07/30/18 08:15; Admin Dose 200 MG; Start 07/26/18 at 13:00 Amlodipine Besylate (Norvasc) 5 mg DAILY PO Last administered on 07/30/18 08:15; Admin Dose 5 MG; Start 07/26/18 at 13:00 Aspirin (Halfprin) 81 mg DAILY PO Last administered on 07/30/18 08:15; Admin Dose 81 MG; Start 07/26/18 at 13:00 Bisacodyl (Dulcolax) 10 mg DAILY PRN PO CONSTIPATION; Start 07/26/18 at 11:00 Calcium/Vitamin D (Oyster Shell/ Vit-D (500/200)) 1 tab DAILY PO Last administered on 07/30/18 08:14; Admin Dose 1 TAB; Start 07/26/18 at 13:00 Furosemide (Lasix) 10 mg DAILY PO Last administered on 07/30/18 08:14; Admin Dose 10 MG; Start 07/26/18 at 13:00 Lisinopril (Zestril) 40 mg DAILY@1400 PO Last administered on 07/30/18 14:15; Admin Dose 40 MG; Start 07/26/18 at 16:00 Magnesium Hydroxide (Milk Of Mag) 30 ml QHS PRN PO CONSTIPATION; Start 07/26/18 at 11:00 Nitroglycerin (Nitroglycerin (Sl Tab) 0.4 Mg) 1 tab Q5M PRN SL CHEST PAIN; S tart 07/26/18 at 11:00 Valproate Sodium (Depakene Liquid Cup) 125 mg DAILY PO Last administered on at 09:15; Admin Dose 125 MG; Start 07/26/18 at 13:00 Sodium Hypochlorite (Dakins Diluted ()) 1 applic DAILY TP Last administered on 07/31/18at 09:19; Admin Dose 1 APPLIC; Start 07/27/18 at 09:00 Miscellaneous Information 1 ea NOTE XX ; Start 07/26/18 at 14:30 Glucose (Glutose) 15 gm Q15M PRN PO DECREASED GLUCOSE; Start 07/26/18 at 14:30 Glucose (Glutose) 22.5 gm Q15M PRN PO DECREASED GLUCOSE; Start 07/26/18 at 14:30 Dextrose (D50w Syringe) 25 ml Q15M PRN IV DECREASED GLUCOSE; Start 07/26/18 at 14:30 Dextrose (D50w Syringe) 50 ml Q15M PRN IV DECREASED GLUCOSE; Start 07/26/18 at 14:30 Glucagon (Glucagen) 1 mg Q15M PRN IM DECREASED GLUCOSE; Start 07/26/18 at 14:30 Glucose (Glutose) 15 gm Q15M PRN BUCCAL DECREASED GLUCOSE; Start 07/26/18 at 14:30 Diagnostic Test (Pha) (Accu-Chek) 1 ea 02 XX Last administered on 07/28/18at 01:47; Admin Dose 1 EA; Start 07/27/18 at 02:00 Mupirocin (Bactroban) 1 applic BID TOP Last administered on 07/31/18at 09:19; Admin Dose 1 APPLIC; Start 07/27/18 at 17:00 Quetiapine Fumarate (Seroquel) 25 mg BID GTB Last administered on 07/31/18at 09:15; Admin Dose 25 MG; Start 07/28/18 at 00:00 Insulin Glargine (Lantus) 10 units DAILY@0800 SC Last administered on 07/31/18at 09:14; Admin Dose 10 UNITS; Start 07/28/18 at 08:00 Amiodarone HCl (Cordarone) 100 mg QHS GTB Last administered on 07/30/18 21:01; Admin Dose 100 MG; Start 07/28/18 at 22:00 Memantine (Namenda) 5 mg BID GTB Last administered on 07/31/18 09:16; Admin Dose 5 MG; Start 07/28/18 at 22:00 Metoprolol Tartrate (Lopressor) 25 mg BID GTB Last administered on 07/30/18 21:00; Admin Dose 25 MG; Start 07/28/18 at 22:00 Saccharomyces Boulardii (Florastor) 250 mg BID GTB Last administered on 07/30/18 21:00; Admin Dose 250 MG; Start 07/28/18 at 22:00 Terazosin HCl (Hytrin) 1 mg HS GTB Last administered on 07/30/18 21:00; Admin Dose 1 MG; Start 07/28/18 at 22:00 Valproate Sodium (Depakene Liquid Cup) 250 mg QPM GTB Last administered on 07/30/18 21:01; Admin Dose 250 MG; Start 07/28/18 at 22:00 Lansoprazole (Prevacid) 30 mg DAILY@06 GTB Last administered on 07/30/18 0 6:25; Admin Dose 30 MG; Start 07/29/18 at 06:26 Vancomycin HCl 1.5 gm/Sodium Chloride 250 ml @ 83.333 mls/ hr Q24H IVPB Last administered on 07/31/18 11:36; Admin Dose 83.333 MLS/HR; Start 07/30/18 at 11:00 Potassium Chloride/Dextrose/ Sod Cl 1,000 ml @ 60 mls/hr [id number] IV Last administered on 07/31/18 01:21; Admin Dose 60 MLS/HR; Start 07/30/18 at 18:30 Insulin Aspart (Novolog Insulin Pen) (Adult SC Insulin - Mild Algorithm)... Q4 SC Last administered on 07/31/18 09:13; Admin Dose 1 UNIT; Start 07/31/18 at 01:00 JAMIE WORRELL NP Jul 31, 2018 13:02
[2018-07-31] MEDS: LISINOPRIL 20 MG TAB PO SCH (13:16)
--- NOTE | 2018-07-31 14:35 | PN ---
Date/Time of Note Date/Time of Note DATE: 07/31/18 TIME: 14:31 Assessment/Plan VTE Prophylaxis Risk score (from [facility])>0 risk: 7 SCD applied (from [facility]): No SCD contraindicated: bilateral LE trauma Pharmacological prophylaxis: NA/contraindicated Pharm contraindication: surgical contra Lines/Catheters [facility] C[facility] Type (from [facility] Mid Line Central line still needed: Yes Urinary Cath still in place: Yes Reason Cath still needed: urinary retention Assessment/Plan Hospital Course No acute events overnight, patient is awake confused, remains hemodynamically stable currently n.p.o. for procedure, continue IV fluids with dextrose, blood sugar is adequately controlled, plan for bilateral food necrotic wound debridement today at 5:30 PM. Assessment/Plan - Sepsis due to bilateral foot gangrene. Right foot cellulitic lesion, questionable osteomyelitis. Continue vancomycin and cefepime. Dr. Palomino is following in infection disease consultation. - Bilateral foot gangrene. Dr. Roberts is following in podiatry consultation. 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 - Peripheral vascular disease. Status post evaluation by Dr. Horne in vascular surgery consultation, no aggressive treatment is recommended. - Possible Aspiration PNA - Paroxysmal atrial fibrillation. Regular hear rate. Continue amiodarone, aspirin, BB. Dr. Castrejon is following in cardiology consultation. - Diabetes. Continue NovoLog. - Dysphagia. Continue G-tube feeding. - Dementia with behavioral disturbances. Continue Namenda and Seroquel. - DNR status Further recommendations depend on clinical course. Plan of care discussed with Dr Figueroa. Result Diagram: 07/30/18 0556 07/30/18 0556 Results 24hrs Laboratory Tests Test 07/30/18 17:27 07/31/18 01:17 07/31/18 05:56 07/31/18 09:10 Bedside Glucose 147 127 131 141 Test 07/31/18 13:11 Bedside Glucose 128 Exam/Review of Systems Exam Vitals Vital Signs Date Temp Pulse Resp B/P (MAP) Pulse Ox O2 O2 Flow FiO2 Time Delivery Rate 07/31/18 98.4 78 19 91/47 (62) 98 Nasal 14:16 Cannula 07/31/18 2.0 08:00 Intake and Output 07/30/18 07/30/18 07/31/18 1515:00 23:00 07:00 IntakeIntake Total 400 ml 1740 ml OutputOutput Total 1400 ml 600 ml 450 ml BalanceBalance -1000 ml 1140 ml -450 ml Exam Constitutional: alert, frail Respiratory: diminished breath sounds Cardiovascular: nl pulses Gastrointestinal: soft, non-tender, other (GT) Extremities: other (contracted) Skin: other (bilateral foot ulcers) Results Results 24hrs Laboratory Tests Test 07/30/18 17:27 07/31/18 01:17 07/31/18 05:56 07/31/18 09:10 Bedside Glucose 147 127 131 141 Test 07/31/18 13:11 Bedside Glucose 128 Medications Medication Current Medications IV Flush (NS 3 ml) 3 ml PER PROTOCOL IV ; Start 07/25/18 at 23:00 Ondansetron HCl (Zofran Inj) 4 mg Q6H PRN IV NAUSEA/VOMITING; Start 07/25/18 at 23:00 Acetaminophen (Tylenol Tab) 650 mg Q6H PRN PO .PAIN 1-3 OR TEMP Last administ ered on 07/31/18at 09:14; Admin Dose 650 MG; Start 07/25/18 at 23:00 Morphine Sulfate (morphine) 2 mg Q4H PRN IV .PAIN 7-10; Start 07/25/18 at 23:00 Enoxaparin Sodium (Lovenox) 30 mg DAILY SC Last administered on 07/30/18at 08:14; Admin Dose 30 MG; Start 07/26/18 at 09:00 Cefepime HCl 50 ml @ 100 mls/hr Q8 IVPB Last administered on 07/31/18at 13:17; Admin Dose 100 MLS/HR; Start 07/26/18 at 06:00 Vancomycin HCl (Vanco Iv Per Pharmacy) VANCOMYCIN PER PHARMACY PER PROTOCOL XX ; Start 07/25/18 at 23:00 Miscellaneous Information (Pending Santyl Order For Wound Care) This patient fajardo... PRN PRN XX WOUND CARE; Start 07/26/18 at 06:00 Acetaminophen (Tylenol Tab) 650 mg Q4H PRN PO MILD PAIN LEVEL 1-3 Last administered on 07/30/18at 11:54; Admin Dose 650 MG; Start 07/26/18 at 11:00 Amiodarone HCl (Cordarone) 200 mg QAM PO Last administered on 07/30/18 08:15; Admin Dose 200 MG; Start 07/26/18 at 13:00 Amlodipine Besylate (Norvasc) 5 mg DAILY PO Last administered on 07/30/18 08:15; Admin Dose 5 MG; Start 07/26/18 at 13:00 Aspirin (Halfprin) 81 mg DAILY PO Last administered on 07/30/18 08:15; Admin Dose 81 MG; Start 07/26/18 at 13:00 Bisacodyl (Dulcolax) 10 mg DAILY PRN PO CONSTIPATION; Start 07/26/18 at 11:00 Calcium/Vitamin D (Oyster Shell/ Vit-D (500/200)) 1 tab DAILY PO Last admi nistered on 07/30/18 08:14; Admin Dose 1 TAB; Start 07/26/18 at 13:00 Furosemide (Lasix) 10 mg DAILY PO Last administered on 07/30/18 08:14; Admin Dose 10 MG; Start 07/26/18 at 13:00 Lisinopril (Zestril) 40 mg DAILY@1400 PO Last administered on 07/30/18 14:15; Admin Dose 40 MG; Start 07/26/18 at 16:00 Magnesium Hydroxide (Milk Of Mag) 30 ml QHS PRN PO CONSTIPATION; Start 07/26/18 at 11:00 Nitroglycerin (Nitroglycerin (Sl Tab) 0.4 Mg) 1 tab Q5M PRN SL CHEST PAIN; Start 07/26/18 at 11:00 Valproate Sodium (Depakene Liquid Cup) 125 mg DAILY PO Last administered on 07/31/18at 09:15; Admin Dose 125 MG; Start 07/26/18 at 13:00 Sodium Hypochlorite (Dakins Diluted (/40)) 1 applic DAILY TP Last administered on 07/31/18 09:19; Admin Dose 1 APPLIC; Start 07/27/18 at 09:00 Miscellaneous Information 1 ea NOTE XX ; Start 07/26/18 at 14:30 Glucose (Glutose) 15 gm Q15M PRN PO DECREASED GLUCOSE; Start 07/26/18 at 14:30 Glucose (Glutose) 22.5 gm Q15M PRN PO DECREASED GLUCOSE; Start 07/26/18 at 14:30 Dextrose (D50w Syringe) 25 ml Q15M PRN IV DECREASED GLUCOSE; Start 07/26/18 at 14:30 Dextrose (D50w Syringe) 50 ml Q15M PRN IV DECREASED GLUCOSE; Start 07/26/18 at 14:30 Glucagon (Glucagen) 1 mg Q15M PRN IM DECREASED GLUCOSE; Start 07/26/18 at 14:30 Glucose (Glutose) 15 gm Q15M PRN BUCCAL DECREASED GLUCOSE; Start 07/26/18 at 14:30 Diagnostic Test (Pha) (Accu-Chek) 1 ea 02 XX Last administered on 07/28/18at 01:47; Admin Dose 1 EA; Start 07/27/18 at 02:00 Mupirocin (Bactroban) 1 applic BID TOP Last administered on 07/31/18 09:19; Admin Dose 1 APPLIC; Start 07/27/18 at 17:00 Quetiapine Fumarate (Seroquel) 25 mg BID GTB Last administered on 07/31/18 09:15; Admin Dose 25 MG; Start 07/28/18 at 00:00 Insulin Glargine (Lantus) 10 units DAILY@0800 SC Last administered on 07/31/18 09:14; Admin Dose 10 UNITS; Start 07/28/18 at 08:00 Amiodarone HCl (Cordarone) 100 mg QHS GTB Last administered on 07/30/18 21:01; Admin Dose 100 MG; Start 07/28/18 at 22:00 Memantine (Namenda) 5 mg BID GTB Last administered on 07/31/18 09:16; Admin Dose 5 MG; Start 07/28/18 at 22:00 Metoprolol Tartrate (Lopressor) 25 mg BID GTB Last administered on 07/30/18 21:00; Admin Dose 25 MG; Start 07/28/18 at 22:00 Saccharomyces Boulardii (Florastor) 250 mg BID GTB Last administered on 07/30/18 21:00; Admin Dose 250 MG; Start 07/28/18 at 22:00 Terazosin HCl (Hytrin) 1 mg HS GTB Last administered on 07/30/18 21:00; Admin Dose 1 MG; Start 07/28/18 at 22:00 Valproate Sodium (Depakene Liquid Cup) 250 mg QPM GTB Last administered on 4/16/19at 21:01; Admin Dose 250 MG; Start 07/28/18 at 22:00 Lansoprazole (Prevacid) 30 mg DAILY@06 GTB Last administered on 07/30/18at 06:25; Admin Dose 30 MG; Start 07/29/18 at 06:26 Vancomycin HCl 1.5 gm/Sodium Chloride 250 ml @ 83.333 mls/ hr Q24H IVPB Last administered on 07/31/18at 11:36; Admin Dose 83.333 MLS/HR; Start 07/30/18 at 11:00 Potassium Chloride/Dextrose/ Sod Cl 1,000 ml @ 60 mls/hr [id number] IV Last administered on 07/31/18at 01:21; Admin Dose 60 MLS/HR; Start 07/30/18 at 18:30 Insulin Aspart (Novolog Insulin Pen) (Adult SC Insulin - Mild Algorithm)... Q4 SC Last administered on 07/31/18at 09:13; Admin Dose 1 UNIT; Start 07/31/18 at 01:00 THUAN LOVE Jul 31, 2018 14:35
--- NOTE | 2018-07-31 17:56 | HPN ---
Date/Time of Note Date/Time of Note DATE: 07/31/18 TIME: 17:55 Interval H&P Admission Note Pt. seen H&P reviewed: No system changes SHAHANA TERRAZAS DPM Jul 31, 2018 17:56
[2018-07-31] MEDS ORDERED: VANCOMYCIN 1 GM INJ ONE (19:59)
[2018-07-31] MEDS ORDERED: POLYMYXIN B 500000 UNIT INJ ONE ×2 (19:59→21:02)
[2018-07-31] MEDS ORDERED: MIDAZOLAM 1 MG/ML 2 ML INJ ONE ×2 (20:09→21:05)
[2018-07-31] MEDS ORDERED: FENTAnyl 50 MCG/ML VIAL ONE ×3 (20:09→20:55)
[2018-07-31] MEDS ORDERED: KETAMINE (50 MG/ML) 10 ML VIAL ONE (20:13)
[2018-07-31] MEDS ORDERED: LIDOCAINE 1% (MPF) 30 ML INJ ONE (20:14)
[2018-07-31] MEDS ORDERED: BUPIVACAINE 0.5% (SDV) 30 ML INJ ONE (20:14)
[2018-07-31] MEDS ORDERED: PROPOFOL 20 ML ONE (21:27)
[2018-07-31] MEDS ORDERED: LIDOCAINE 2% (SDV) 5 ML INJ ONE (21:27)
[2018-07-31] MEDS ORDERED: ROPIVACAINE 0.5 % 30 ML VIAL ONE (21:28)
--- NOTE | 2018-07-31 21:50 | SIPON ---
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
--- NOTE | 2018-07-31 21:52 | OPR ---
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 Discussed with POA the importance of surgical intervention to decrease infection and to improve his sepsis. Consent was obtained from the POA and was witnessed by nursing staff. All of the questions and concerns were addressed, no promises or guarantees were given. Procedure Description Patient was brought into the OR and kept in the bed in the supine position. Bilateral lower extremities were scrubbed, prepped, and draped in the usual aseptic manner. A formal time out was conducted. Attention was directed to the left foot the lateral 5th metatarsal ulcer which was gangrenous. Excisional debridement of skin/subQ/muscle was performed using scalpel. Necrotic tissue and fibrotic tissue along with purulence ~1-2mL was removed from the wound bed which measured 3 x 3 x 0.4cm. 9cm2 of area was debrided, the ulcer probed to bone. There was a left heel ulcer measuring 0.4 x 0.4 x 0.2cm underwent excisional debridement of skin/subQ using a scalpel blade. Necrotic and fibrotic tissue was removed. 0.16cm2 of area was debrided. Left medial malleolus ulcer 0.7 x 0.5 x 0.2cm fibrotic wound base underwent excisional debridement of skin/subQ using a scalpel blade. Fibrotic tissue was removed. 0.35cm2 of area was debrided unable to probe to bone Next attention was directed to the right foot: R 1st MPJ ulceration site 2 x 1.5 x 0.3cm which probed to bone with a necrotic wound base and dry appearance. Excisional debridement of skin/subQ/fascia using scalpel blade and pickup/scissors performed. 3cm2 of area was debrided R medial midfoot ulceration site 8 x 5 x 0.9cm which probed to bone with a necrotic wound base and purulence noted. Excisional debridement of skin/subQ/tendon/muscle bone using scalpel blade, ronguers and pickup/scissors performed. 40cm2 of area was debrided. There was necrotic muscle and bone appreciated to the ulceration site. The ulcer tunneled towards the tarsal tu nnel and 2-3mL of purulence was expressed. R heel ulceration site 8 x 5.5 x 1.1cm which probed to bone with a necrotic wound base and fluctuance noted. Excisional debridement of skin/subQ/tendon/muscle bone using scalpel blade, ronguers and pickup/scissors performed. 44cm2 of area was debrided. There was achilles tendon insertion exposed and calcaneal bone exposed. R lateral distal 5th metatarsal ulceration site 4 x 2 x 0.4cm which probes to bone wound base is gangrenous and dry. Excisional debridement of skin/subQ/muscle performed using scalpel and pickup/scissors. 8cm2 of area was debrided R lateral mid 5th metatarsal ulcer 6 x 3.5 x 0.4 which probes to bone wound base is gangrenous and slight fluctuance was appreciated. Excisional debridement of s kin/subQ/muscle/bone performed using scalpel and pickup/scissors. 21cm2 of area was debrided R lateral malleolar ulcer 2.5 x 2 x 0.4 which probes to bone wound base is gangrenous and dry. Excisional debridement of skin/subQ/fascia performed using scalpel and pickup/scissors. 5cm2 of area was debrided All ulcer sites were copiously irrigated with pulse lavage irrigation using ant ibiotic infused saline. Wound cultures were obtained from bilateral feet and right foot bone pathology was obtained. Iodoform packing was placed into tunneling site of the right medial midfoot. Vancomycin, bacitracin, and polymyxin antibiotic powder was placed at all wound sites along with betadine 4x4 gauze and wrapped with kerlix and padding. Patient was transferred to PACU with vital signs stable and neurovascular status intact. SHAHANA TERRAZAS DPM Jul 31, 2018 21:52
[2018-07-31] MEDS ORDERED: PHENYLephrine 10 MG INJ ONE (21:53)
[2018-07-31] MEDS ORDERED: BACITRACIN 50000 UNITS INJ IRR ONE ×2 (22:09)
--- NOTE | 2018-07-31 22:13 | PAC ---
Date/Time of Note Date/Time of Note DATE: 07/31/18 TIME: 22:12 Post-Anesthesia Notes Post-Anesthesia Note Last documented vital signs Vital Signs Date Temp Pulse Resp B/P (MAP) Pulse Ox O2 O2 Flow FiO2 Time Delivery Rate 07/31/18 98.4 78 19 91/47 (62) 98 Nasal 14:16 Cannula 07/31/18 2.0 08:00 Activity: WNL Respiratory function: WNL Cardiovascular function: WNL Mental status: Baseline Pain reasonably controlled: Yes Hydration appropriate: Yes Nausea/Vomiting absent: Yes Comments BP:146/78, P:76, Spo2:100%, T:98,9 FERNY AGUIRRE MD Jul 31, 2018 22:13
[2018-07-31] MEDS ORDERED: NALOXONE (0.4 MG/ML) INJ IV PRN (22:30)
[2018-07-31] MEDS ORDERED: DIPHENHYDRAMINE 50 MG INJ IV PRN (22:30)
[2018-07-31] MEDS ORDERED: ONDANSETRON 4 MG INJ IV PRN (22:30)
[2018-07-31] MEDS ORDERED: FENTAnyl 50 MCG/ML VIAL IV PRN (22:30)
[2018-07-31] MEDS ORDERED: HYDROmorphONE 1 MG/5 ML IV SYRINGE IV PRN ×2 (22:30)
[2018-07-31] MEDS: TERAZOSIN 1 MG CAP GTB SCH (23:28)
[2018-07-31] MEDS: VALPROIC ACID LIQUID CUP 250 MG/5 ML CUP GTB SCH (23:28)
[2018-07-31] MEDS: AMIODARONE 200 MG TAB GTB SCH (23:28)
[2018-08-01] MEDS: INSULIN ASPART [NOVOLOG] 3 ML PEN SC SCH ×5 (01:00→23:43)
[2018-08-01] MEDS: ACCUCHECK AT 2AM (Patients on SS coverage) XX SCH (01:57)
[2018-08-01 02:28] VITALS: BP 127/61; PULSE 72; RESP 20
[2018-08-01] MEDS: LANSOPRAZOLE 30 MG CAP GTB SCH (05:54)
[2018-08-01] MEDS: CEFEPIME 2GM/50 ML (PMX) 50 ML IVPB SCH ×3 (05:54→21:30)
[2018-08-01 08:13] VITALS: BP 109/57; PULSE 80; RESP 17
[2018-08-01] MEDS: METOPROLOL 25 MG TAB GTB SCH ×2 (08:41→20:58)
[2018-08-01] MEDS: AMLODIPINE 5 MG TAB PO SCH (08:41)
[2018-08-01] MEDS: ENOXAPARIN 30 MG/0.3 ML SYG SC SCH (08:42)
[2018-08-01] MEDS: VALPROIC ACID LIQUID CUP 250 MG/5 ML CUP PO SCH (08:42)
[2018-08-01] MEDS: AMIODARONE 200 MG TAB PO SCH (08:43)
[2018-08-01] MEDS: SACCHAROMYCES BOULARDII 250 MG CAP GTB SCH ×2 (08:43→20:57)
[2018-08-01] MEDS: CALCIUM/VITAMIN D (500/200) TAB PO SCH (08:44)
[2018-08-01] MEDS: ASPIRIN (EC) 81 MG TAB PO SCH (08:44)
[2018-08-01] MEDS: FUROSEMIDE 20 MG TAB PO SCH (08:44)
[2018-08-01] MEDS: MEMANTINE 5 MG TAB GTB SCH ×2 (08:44→20:57)
[2018-08-01] MEDS: QUETIAPINE 25 MG TAB GTB SCH ×2 (08:44→20:58)
[2018-08-01] MEDS: MUPIROCIN 2% 22 GM OINT TOP SCH ×2 (09:21→20:59)
[2018-08-01] MEDS: INSULIN GLARGINE [LANTus] (100 UNITS/ML) SYG SC SCH (09:21)
[2018-08-01] MEDS: BALSAM PERU/CASTOR OIL 60 GM TUBE TOP SCH ×2 (09:22→20:59)
[2018-08-01] MEDS: VANCOMYCIN HCL 1.5 GM in SOD CHLORIDE 0.9% 250 ML IVPB SCH (10:33)
[2018-08-01] MEDS: morphine 2 MG INJ IV PRN ×2 (10:33→21:30)
--- NOTE | 2018-08-01 11:43 | CONS ---
Assessment/Plan Assessment/Plan Hospital Course (Demo Recall) Al noted. No acute events per report Microbiology: Blood cultures remain negative. Bilateral lower extremities cultures growing MRSA, enterococcus, E. coli Antimicrobials: Vancomycin, cefepime Physical examination: Chronically ill-appearing debilitated elderly man in no distress. Head atraumatic normocephalic neck is supple chest rise symmetrical breath sounds diminished bases. Heart: S1-S2. Abdomen soft bowel sounds present. Extremities with bilateral lower extremities dressing intact Assessment: 1. Sepsis, present on admission 2. Bilateral foot gangrene, status post debridement 07/26/18, 07/31/18 3. Diabetes with diabetic neuropathy 4. Aspiration pneumonia 5. Dementia Plan: Stable, continue antibiotics/aspiration precautions, repeat cxr, follow podiatry recommendations Consultation Date/Type/Reason Admit Date/Time Jul 25, 2018 at 22:41 Initial Consult Date 07/26/18 Type of Consult id Date/Time of Note DATE: 08/01/18 TIME: 11:40 Exam/Review of Systems Exam Vitals Vital Signs Date Temp Pulse Resp B/P (MAP) Pulse Ox O2 O2 Flow FiO2 Time Delivery Rate 08/01/18 Nasal 2.0 08:40 Cannula 08/01/18 99.1 80 17 109/57 95 08:13 (74) Intake and Output 07/31/18 07/31/18 08/01/18 1515:00 23:00 07:00 IntakeIntake Total 300 ml 1480 ml 100 ml OutputOutput Total 1640 ml 1200 ml BalanceBalance 300 ml -160 ml -1100 ml Results Result Diagram: 08/01/18 0630 08/01/18 0630 Results 24hrs Laboratory Tests Test 07/31/18 13:11 07/31/18 15:26 07/31/18 18:04 07/31/18 23:14 Bedside Glucose 128 95 92 White Blood Count 14.8 H Red Blood Count 3.64 L Hemoglobin 10.1 L Hematocrit 32.2 L Mean Corpuscular 88.5 Volume Mean Corpuscular 27.7 L Hemoglobin Mean Corpuscular 31.4 L Hemoglobin Concent Red Cell 15.6 H Distribution Width Platelet Count 393 Mean Platelet Volume 11.1 H Immature 7.200 H Granulocytes % Neutrophils % Segmented 70 Neutrophils % (Manual) Band Neutrophils % 6 H (Manual) Lymphocytes % Lymphocytes % 9 L (Manual) Reactive Lymphocytes 1 H % (Manual) Monocytes % Monocytes % (Manual) 7 Eosinophils % Eosinophils % 2 (Manual) Basophils % Metamyelocytes % 1 H (manual) Myelocytes % 4 H (Manual) Nucleated Red Blood 0.1 H Cells % Immature 1.070 H Granulocytes # Neutrophils # Neutrophils # 10.5 H (Manual) Band Neutrophils # 0.8 H Lymphocytes (Manual) 1.3 Lymphocytes # Reactive Lymphocytes 0.1 H # Monocytes # Monocytes # (Manual) 1.0 H Eosinophils # Basophils # Metamyelocytes # 0.1 H Myelocytes # 0.5 H Nucleated Red Blood Cells # Platelet Estimate NORMAL Giant Platelets 1 H Polychromasia 1+ Poikilocytosis 1+ Anisocytosis 1+ Microcytosis 1+ Ovalocytes 1+ Prothrombin Time 15.1 H Prothrombin Time 1.2 Ratio INR International 1.18 Normalized Ratio Activated 38.6 H Partial Thromboplast Time Thrombin Time 15.7 Sodium Level 140 Potassium Level 3.6 Chloride Level 107 Carbon Dioxide Level 28 Anion Gap 5 Blood Urea Nitrogen 16 Creatinine 0.44 L Est Glomerular Filtrat Rate mL/min Glucose Level 93 # Calcium Level 8.2 L Magnesium Level 2.1 Test 08/01/18 01:56 08/01/18 06:01 08/01/18 06:30 Bedside Glucose 116 162 White Blood Count 17.3 H Red Blood Count 3.16 L Hemoglobin 8.8 L Hematocrit 28.4 L Mean Corpuscular 89.9 Volume Mean Corpuscular 27.8 L Hemoglobin Mean Corpuscular 31.0 L Hemoglobin Concent Red Cell 15.6 H Distribution Width Platelet Count 393 Mean Platelet Volume 11.7 H Immature 5.800 H Granulocytes % Neutrophils % 75.4 Segmented 73 Neutrophils % (Manual) Band Neutrophils % 9 H (Manual) Lymphocytes % 7.3 L Lymphocytes % 11 L (Manual) Reactive Lymphocytes 1 H % (Manual) Monocytes % 8.3 Monocytes % (Manual) 2 Eosinophils % 2.3 Eosinophils % 2 (Manual) Basophils % 0.9 Basophils % (Manual) 2 Nucleated Red Blood 0.0 Cells % Immature 1.000 H Granulocytes # Neutrophils # 13.0 H Neutrophils # 12.9 H (Manual) Band Neutrophils # 1.5 H Lymphocytes (Manual) 1.9 Lymphocytes # 1.3 Reactive Lymphocytes 0.1 H # Monocytes # 1.4 H Monocytes # (Manual) 0.3 Eosinophils # 0.4 Basophils # 0.2 H Basophils # (Manual) 0.3 H Nucleated Red Blood 0.0 Cells # Platelet Estimate NORMAL Polychromasia 1+ Anisocytosis 2+ Microcytosis 2+ Sodium Level 139 Potassium Level 3.8 Chloride Level 110 Carbon Dioxide Level 27 Anion Gap 2 L Blood Urea Nitrogen 18 Creatinine 0.43 L Est Glomerular Filtrat Rate mL/min Glucose Level 156 Calcium Level 8.2 L Medications Medication Current Medications IV Flush (NS 3 ml) 3 ml PER PROTOCOL IV ; Start 07/25/18 at 23:00 Ondansetron HCl (Zofran Inj) 4 mg Q6H PRN IV NAUSEA/VOMITING; Start 07/25/18 at 23:00 Acetaminophen (Tylenol Tab) 650 mg Q6H PRN PO .PAIN 1-3 OR TEMP Last administered on 07/31/18at 09:14; Admin Dose 650 MG; Start 07/25/18 at 23:00 Morphine Sulfate (morphine) 2 mg Q4H PRN IV .PAIN 7-10 Last administered on 08/01/18at 10:33; Admin Dose 2 MG; Start 07/25/18 at 23:00 Enoxaparin Sodium (Lovenox) 30 mg DAILY SC Last administered on 08/01/18at 08:42; Admin Dose 30 MG; Start 07/26/18 at 09:00 Cefepime HCl 50 ml @ 100 mls/hr Q8 IVPB Last administered on 08/01/18at 05:54; Admin Dose 100 MLS/HR; Start 07/26/18 at 06:00 Vancomycin HCl (Vanco Iv Per Pharmacy) VANCOMYCIN PER PHARMACY PER PROTOCOL XX ; Start 07/25/18 at 23:00 Miscellaneous Information (Pending Santyl Order For Wound Care) This patient fajardo... PRN PRN XX WOUND CARE; Start 07/26/18 at 06:00 Acetaminophen (Tylenol Tab) 650 mg Q4H PRN PO MILD PAIN LEVEL 1-3 Last administered on 07/30/18at 11:54; Admin Dose 650 MG; Start 07/26/18 at 11:00 Amiodarone HCl (Cordarone) 200 mg QAM PO Last administered on 08/01/18at 08:43; Admin Dose 200 MG; Start 07/26/18 at 13:00 Amlodipine Besylate (Norvasc) 5 mg DAILY PO Last administered on 08/01/18at 08:41; Admin Dose 5 MG; Start 07/26/18 at 13:00 Aspirin (Halfprin) 81 mg DAILY PO Last administered on 08/01/18at 08:44; Admin Dose 81 MG; Start 07/26/18 at 13:00 Bisacodyl (Dulcolax) 10 mg DAILY PRN PO CONSTIPATION; Start 07/26/18 at 11:00 Calcium/Vitamin D (Oyster Shell/ Vit-D (500/200)) 1 tab DAILY PO Last administered on 08/01/18at 08:44; Admin Dose 1 TAB; Start 07/26/18 at 13:00 Furosemide (Lasix) 10 mg DAILY PO Last administered on 08/01/18at 08:44; Admin Dose 10 MG; Start 07/26/18 at 13:00 Lisinopril (Zestril) 40 mg DAILY@1400 PO Last administered on 07/30/18at 14:15; Admin Dose 40 MG; Start 07/26/18 at 16:00 Magnesium Hydroxide (Milk Of Mag) 30 ml QHS PRN PO CONSTIPATION; Start 07/26/18 at 11:00 Nitroglycerin (Nitroglycerin (Sl Tab) 0.4 Mg) 1 tab Q5M PRN SL CHEST PAIN; Sta rt 07/26/18 at 11:00 Valproate Sodium (Depakene Liquid Cup) 125 mg DAILY PO Last administered on 07/15 8at 08:42; Admin Dose 125 MG; Start 07/26/18 at 13:00 Sodium Hypochlorite (Dakins Diluted (40)) 1 applic DAILY TP Last administered on 07/31/18at 09:19; Admin Dose 1 APPLIC; Start 07/27/18 at 09:00 Miscellaneous Information 1 ea NOTE XX ; Start 07/26/18 at 14:30 Glucose (Glutose) 15 gm Q15M PRN PO DECREASED GLUCOSE; Start 07/26/18 at 14:30 Glucose (Glutose) 22.5 gm Q15M PRN PO DECREASED GLUCOSE; Start 07/26/18 at 14:30 Dextrose (D50w Syringe) 25 ml Q15M PRN IV DECREASED GLUCOSE; Start 07/26/18 at 14:30 Dextrose (D50w Syringe) 50 ml Q15M PRN IV DECREASED GLUCOSE; Start 07/26/18 at 14:30 Glucagon (Glucagen) 1 mg Q15M PRN IM DECREASED GLUCOSE; Start 07/26/18 at 14:30 Glucose (Glutose) 15 gm Q15M PRN BUCCAL DECREASED GLUCOSE; Start 07/26/18 at 14:30 Diagnostic Test (Pha) (Accu-Chek) 1 ea 02 XX Last administered on 07/28/18at 01:47; Admin Dose 1 EA; Start 07/27/18 at 02:00 Mupirocin (Bactroban) 1 applic BID TOP Last administered on 08/01/18 09:21; Admin Dose 1 APPLIC; Start 07/27/18 at 17:00 Quetiapine Fumarate (Seroquel) 25 mg BID GTB Last administered on 08/01/18 08:44; Admin Dose 25 MG; Start 07/28/18 at 00:00 Insulin Glargine (Lantus) 10 units DAILY@0800 SC Last administered on 08/01/18 09:21; Admin Dose 10 UNITS; Start 07/28/18 at 08:00 Amiodarone HCl (Cordarone) 100 mg QHS GTB Last administered on 07/31/18 23:28; Admin Dose 100 MG; Start 07/28/18 at 22:00 Memantine (Namenda) 5 mg BID GTB Last administered on 08/01/18 08:44; Admin Dose 5 MG; Start 07/28/18 at 22:00 Metoprolol Tartrate (Lopressor) 25 mg BID GTB Last administered on 07/31/18 23:27; Admin Dose 25 MG; Start 07/28/18 at 22:00 Saccharomyces Boulardii (Florastor) 250 mg BID GTB Last administered on 08/01/18 08:43; Admin Dose 250 MG; Start 07/28/18 at 22:00 Terazosin HCl (Hytrin) 1 mg HS GTB Last administered on 07/31/18 23:28; Admin Dose 1 MG; Start 07/28/18 at 22:00 Valproate Sodium (Depakene Liquid Cup) 250 mg QPM GTB Last administered on 07/31/18 23:28; Admin Dose 250 MG; Start 07/28/18 at 22:00 Lansoprazole (Prevacid) 30 mg DAILY@06 GTB Last administered on 08/01/18at 05: 54; Admin Dose 30 MG; Start 07/29/18 at 06:26 Vancomycin HCl 1.5 gm/Sodium Chloride 250 ml @ 83.333 mls/ hr Q24H IVPB Last administered on 08/01/18at 10:33; Admin Dose 83.333 MLS/HR; Start 07/30/18 at 11:00 Insulin Aspart (Novolog Insulin Pen) (Adult SC Insulin - Mild Algorithm)... Q6 SC Last administered on 08/01/18at 06:03; Admin Dose 1 UNIT; Start 08/01/18 at 06:00 Miscellaneous Information (*Rx Drug Level Order Reminder*) 1 1000 ONCE XX ; Start 08/02/18 at 10:00; Stop 08/02/18 at 10:01 JAMIE WORRELL NP Aug 01, 2018 11:43
--- NOTE | 2018-08-01 12:25 | PN ---
Date/Time of Note Date/Time of Note DATE: 08/01/18 TIME: 11:53 Assessment/Plan VTE Prophylaxis Risk [place] [facility] [place] risk: 11 SCD applied (from [facility] [place] Yes Pharmacological prophylaxis: LMWH Lines/Catheters IV Catheter Type (from [facility] Mid Line Central line still needed: Yes Urinary Cath still in place: Yes Reason Cath still needed: urinary retention Assessment/Plan Hospital Course Patient status post bilateral wound debridement yesterday, patient is awake, confused, tolerates feeding well, continue aspiration precaution, antibiotics, a nd wound care per podiatry. Assessment/Plan - Sepsis due to bilateral foot gangrene. Right foot cellulitic lesion, questionable osteomyelitis. Continue vancomycin and cefepime. Dr. Palomino is following in infection disease consultation. - Bilateral foot gangrene. Status post bilateral foot debridement on 07/31/2018. Dr. Roberts is following in podiatry consultation. 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 - Peripheral vascular disease. Status post evaluation by Dr. Horne in vascular surgery consultation, no aggressive treatment is recommended. - Possible Aspiration PNA - Paroxysmal atrial fibrillation. Regular hear rate. Continue amiodarone, aspirin, BB. Dr. Castrejon is following in cardiology consultation. - Diabetes. Continue NovoLog. - Dysphagia. Continue G-tube feeding. - Dementia with behavioral disturbances. Continue Namenda and Seroquel. - DNR status Further recommendations depend on clinical course. Plan of care discussed with Dr Figueroa. Result Diagram: 08/01/18 0630 08/01/18 0630 Results 24hrs Laboratory Tests Test 07/31/18 13:11 07/31/18 15:26 07/31/18 18:04 07/31/18 23:14 Bedside Glucose 128 95 92 White Blood Count 14.8 H Red Blood Count 3.64 L Hemoglobin 10.1 L Hematocrit 32.2 L Mean Corpuscular 88.5 Volume Mean Corpuscular 27.7 L Hemoglobin Mean Corpuscular 31.4 L Hemoglobin Concent Red Cell 15.6 H Distribution Width Platelet Count 393 Mean Platelet Volume 11.1 H Immature 7.200 H Granulocytes % Neutrophils % Segmented 70 Neutrophils % (Manual) Band Neutrophils % 6 H (Manual) Lymphocytes % Lymphocytes % 9 L (Manual) Reactive Lymphocytes 1 H % (Manual) Monocytes % Monocytes % (Manual) 7 Eosinophils % Eosinophils % 2 (Manual) Basophils % Metamyelocytes % 1 H (manual) Myelocytes % 4 H (Manual) Nucleated Red Blood 0.1 H Cells % Immature 1.070 H Granulocytes # Neutrophils # Neutrophils # 10.5 H (Manual) Band Neutrophils # 0.8 H Lymphocytes (Manual) 1.3 Lymphocytes # Reactive Lymphocytes 0.1 H # Monocytes # Monocytes # (Manual) 1.0 H Eosinophils # Basophils # Metamyelocytes # 0.1 H Myelocytes # 0.5 H Nucleated Red Blood Cells # Platelet Estimate NORMAL Giant Platelets 1 H Polychromasia 1+ Poikilocytosis 1+ Anisocytosis 1+ Microcytosis 1+ Ovalocytes 1+ Prothrombin Time 15.1 H Prothrombin Time 1.2 Ratio INR International 1.18 Normalized Ratio Activated 38.6 H Partial Thromboplast Time Thrombin Time 15.7 Sodium Level 140 Potassium Level 3.6 Chloride Level 107 Carbon Dioxide Level 28 Anion Gap 5 Blood Urea Nitrogen 16 Creatinine 0.44 L Est Glomerular Filtrat Rate mL/min Glucose Level 93 # Calcium Level 8.2 L Magnesium Level 2.1 Test 08/01/18 01:56 08/01/18 06:01 08/01/18 06:30 Bedside Glucose 116 162 White Blood Count 17.3 H Red Blood Count 3.16 L Hemoglobin 8.8 L Hematocrit 28.4 L Mean Corpuscular 89.9 Volume Mean Corpuscular 27.8 L Hemoglobin Mean Corpuscular 31.0 L Hemoglobin Concent Red Cell 15.6 H Distribution Width Platelet Count 393 Mean Platelet Volume 11.7 H Immature 5.800 H Granulocytes % Neutrophils % 75.4 Segmented 73 Neutrophils % (Manual) Band Neutrophils % 9 H (Manual) Lymphocytes % 7.3 L Lymphocytes % 11 L (Manual) Reactive Lymphocytes 1 H % (Manual) Monocytes % 8.3 Monocytes % (Manual) 2 Eosinophils % 2.3 Eosinophils % 2 (Manual) Basophils % 0.9 Basophils % (Manual) 2 Nucleated Red Blood 0.0 Cells % Immature 1.000 H Granulocytes # Neutrophils # 13.0 H Neutrophils # 12.9 H (Manual) Band Neutrophils # 1.5 H Lymphocytes (Manual) 1.9 Lymphocytes # 1.3 Reactive Lymphocytes 0.1 H # Monocytes # 1.4 H Monocytes # (Manual) 0.3 Eosinophils # 0.4 Basophils # 0.2 H Basophils # (Manual) 0.3 H Nucleated Red Blood 0.0 Cells # Platelet Estimate NORMAL Polychromasia 1+ Anisocytosis 2+ Microcytosis 2+ Sodium Level 139 Potassium Level 3.8 Chloride Level 110 Carbon Dioxide Level 27 Anion Gap 2 L Blood Urea Nitrogen 18 Creatinine 0.43 L Est Glomerular Filtrat Rate mL/min Glucose Level 156 Calcium Level 8.2 L Exam/Review of Systems Exam Vitals Vital Signs Date Temp Pulse Resp B/P (MAP) Pulse Ox O2 O2 Flow FiO2 Time Delivery Rate 08/01/18 Nasal 2.0 08:40 Cannula 08/01/18 99.1 80 17 109/57 95 08:13 (74) Intake and Output 07/31/18 07/31/18 08/01/18 1414:59 22:59 06:59 IntakeIntake Total 100 ml 1730 ml 100 ml OutputOutput Total 1640 ml 1200 ml BalanceBalance 100 ml 90 ml -1100 ml Exam Constitutional: alert, frail Respiratory: diminished breath sounds Cardiovascular: nl pulses Gastrointestinal: soft, non-tender, other (GT) Extremities: other (contracted) Skin: other (bilateral foot ulcers with intact surgical dressing) Results Results 24hrs Laboratory Tests Test 07/31/18 13:11 07/31/18 15:26 07/31/18 18:04 07/31/18 23:14 Bedside Glucose 128 95 92 White Blood Count 14.8 H Red Blood Count 3.64 L Hemoglobin 10.1 L Hematocrit 32.2 L Mean Corpuscular 88.5 Volume Mean Corpuscular 27.7 L Hemoglobin Mean Corpuscular 31.4 L Hemoglobin Concent Red Cell 15.6 H Distribution Width Platelet Count 393 Mean Platelet Volume 11.1 H Immature 7.200 H Granulocytes % Neutrophils % Segmented 70 Neutrophils % (Manual) Band Neutrophils % 6 H (Manual) Lymphocytes % Lymphocytes % 9 L (Manual) Reactive Lymphocytes 1 H % (Manual) Monocytes % Monocytes % (Manual) 7 Eosinophils % Eosinophils % 2 (Manual) Basophils % Metamyelocytes % 1 H (manual) Myelocytes % 4 H (Manual) Nucleated Red Blood 0.1 H Cells % Immature 1.070 H Granulocytes # Neutrophils # Neutrophils # 10.5 H (Manual) Band Neutrophils # 0.8 H Lymphocytes (Manual) 1.3 Lymphocytes # Reactive Lymphocytes 0.1 H # Monocytes # Monocytes # (Manual) 1.0 H Eosinophils # Basophils # Metamyelocytes # 0.1 H Myelocytes # 0.5 H Nucleated Red Blood Cells # Platelet Estimate NORMAL Giant Platelets 1 H Polychromasia 1+ Poikilocytosis 1+ Anisocytosis 1+ Microcytosis 1+ Ovalocytes 1+ Prothrombin Time 15.1 H Prothrombin Time 1.2 Ratio INR International 1.18 Normalized Ratio Activated 38.6 H Partial Thromboplast Time Thrombin Time 15.7 Sodium Level 140 Potassium Level 3.6 Chloride Level 107 Carbon Dioxide Level 28 Anion Gap 5 Blood Urea Nitrogen 16 Creatinine 0.44 L Est Glomerular Filtrat Rate mL/min Glucose Level 93 # Calcium Level 8.2 L Magnesium Level 2.1 Test 08/01/18 01:56 08/01/18 06:01 08/01/18 06:30 Bedside Glucose 116 162 White Blood Count 17.3 H Red Blood Count 3.16 L Hemoglobin 8.8 L Hematocrit 28.4 L Mean Corpuscular 89.9 Volume Mean Corpuscular 27.8 L Hemoglobin Mean Corpuscular 31.0 L Hemoglobin Concent Red Cell 15.6 H Distribution Width Platelet Count 393 Mean Platelet Volume 11.7 H Immature 5.800 H Granulocytes % Neutrophils % 75.4 Segmented 73 Neutrophils % (Manual) Band Neutrophils % 9 H (Manual) Lymphocytes % 7.3 L Lymphocytes % 11 L (Manual) Reactive Lymphocytes 1 H % (Manual) Monocytes % 8.3 Monocytes % (Manual) 2 Eosinophils % 2.3 Eosinophils % 2 (Manual) Basophils % 0.9 Basophils % (Manual) 2 Nucleated Red Blood 0.0 Cells % Immature 1.000 H Granulocytes # Neutrophils # 13.0 H Neutrophils # 12.9 H (Manual) Band Neutrophils # 1.5 H Lymphocytes (Manual) 1.9 Lymphocytes # 1.3 Reactive Lymphocytes 0.1 H # Monocytes # 1.4 H Monocytes # (Manual) 0.3 Eosinophils # 0.4 Basophils # 0.2 H Basophils # (Manual) 0.3 H Nucleated Red Blood 0.0 Cells # Platelet Estimate NORMAL Polychromasia 1+ Anisocytosis 2+ Microcytosis 2+ Sodium Level 139 Potassium Level 3.8 Chloride Level 110 Carbon Dioxide Level 27 Anion Gap 2 L Blood Urea Nitrogen 18 Creatinine 0.43 L Est Glomerular Filtrat Rate mL/min Glucose Level 156 Calcium Level 8.2 L Medications Medication Current Medications IV Flush (NS 3 ml) 3 ml PER PROTOCOL IV ; Start 4/11/19 at 23:00 Ondansetron HCl (Zofran Inj) 4 mg Q6H PRN IV NAUSEA/VOMITING; Start 07/25/18 at 23:00 Acetaminophen (Tylenol Tab) 650 mg Q6H PRN PO .PAIN 1-3 OR TEMP Last administered on 07/31/18 09:14; Admin Dose 650 MG; Start 07/25/18 at 23:00 Morphine Sulfate (morphine) 2 mg Q4H PRN IV .PAIN 7-10 Last administered on 08/01/18at 10:33; Admin Dose 2 MG; Start 07/25/18 at 23:00 Enoxaparin Sodium (Lovenox) 30 mg DAILY SC Last administered on 08/01/18 08:42; Admin Dose 30 MG; Start 07/26/18 at 09:00 Cefepime HCl 50 ml @ 100 mls/hr Q8 IVPB Last administered on 08/01/18 05:54; Admin Dose 100 MLS/HR; Start 07/26/18 at 06:00 Vancomycin HCl (Vanco Iv Per Pharmacy) VANCOMYCIN PER PHARMACY PER PROTOCOL XX ; Start 07/25/18 at 23:00 Miscellaneous Information (Pending Santyl Order For Wound Care) This patient fajardo... PRN PRN XX WOUND CARE; Start 07/26/18 at 06:00 Acetaminophen (Tylenol Tab) 650 mg Q4H PRN PO MILD PAIN LEVEL 1-3 Last administered on 07/30/18at 11:54; Admin Dose 650 MG; Start 07/26/18 at 11:00 Amiodarone HCl (Cordarone) 200 mg QAM PO Last administered on 08/01/18 08:43; Admin Dose 200 MG; Start 07/26/18 at 13:00 Amlodipine Besylate (Norvasc) 5 mg DAILY PO Last administered on 08/01/18 08:41; Admin Dose 5 MG; Start 07/26/18 at 13:00 Aspirin (Halfprin) 81 mg DAILY PO Last administered on 08/01/18 08:44; Admin Dose 81 MG; Start 07/26/18 at 13:00 Bisacodyl (Dulcolax) 10 mg DAILY PRN PO CONSTIPATION; Start 07/26/18 at 11:00 Calcium/Vitamin D (Oyster Shell/ Vit-D (500/200)) 1 tab DAILY PO Last administered on 08/01/18at 08:44; Admin Dose 1 TAB; Start 07/26/18 at 13:00 Furosemide (Lasix) 10 mg DAILY PO Last administered on 08/01/18at 08:44; Admin Dose 10 MG; Start 07/26/18 at 13:00 Lisinopril (Zestril) 40 mg DAILY@1400 PO Last administered on 07/30/18at 14:15; Admin Dose 40 MG; Start 07/26/18 at 16:00 Magnesium Hydroxide (Milk Of Mag) 30 ml QHS PRN PO CONSTIPATION; Start 07/26/18 at 11:00 Nitroglycerin (Nitroglycerin (Sl Tab) 0.4 Mg) 1 tab Q5M PRN SL CHEST PAIN; Start 07/26/18 at 11:00 Valproate Sodium (Depakene Liquid Cup) 125 mg DAILY PO Last administered on 08/01/18at 08:42; Admin Dose 125 MG; Start 07/26/18 at 13:00 Sodium Hypochlorite (Dakins Diluted (40)) 1 applic DAILY TP Last administered on 07/31/18at 09:19; Admin Dose 1 APPLIC; Start 07/27/18 at 09:00 Miscellaneous Information 1 ea NOTE XX ; Start 07/26/18 at 14:30 Glucose (Glutose) 15 gm Q15M PRN PO DECREASED GLUCOSE; Start 07/26/18 at 14:30 Glucose (Glutose) 22.5 gm Q15M PRN PO DECREASED GLUCOSE; Start 07/26/18 at 14:30 Dextrose (D50w Syringe) 25 ml Q15M PRN IV DECREASED GLUCOSE; Start 07/26/18 at 14:30 Dextrose (D50w Syringe) 50 ml Q15M PRN IV DECREASED GLUCOSE; Start 07/26/18 at 14:30 Glucagon (Glucagen) 1 mg Q15M PRN IM DECREASED GLUCOSE; Start 07/26/18 at 14:30 Glucose (Glutose) 15 gm Q15M PRN BUCCAL DECREASED GLUCOSE; Start 07/26/18 at 14:30 Diagnostic Test (Pha) (Accu-Chek) 1 ea 02 XX Last administered on 07/28/18at 01:47; Admin Dose 1 EA; Start 07/27/18 at 02:00 Mupirocin (Bactroban) 1 applic BID TOP Last administered on 08/01/18 09:21; Admin Dose 1 APPLIC; Start 07/27/18 at 17:00 Quetiapine Fumarate (Seroquel) 25 mg BID GTB Last administered on 08/01/18 08:44; Admin Dose 25 MG; Start 07/28/18 at 00:00 Insulin Glargine (Lantus) 10 units DAILY@0800 SC Last administered on 08/01/18 09:21; Admin Dose 10 UNITS; Start 07/28/18 at 08:00 Amiodarone HCl (Cordarone) 100 mg QHS GTB Last administered on 07/31/18 23:28; Admin Dose 100 MG; Start 07/28/18 at 22:00 Memantine (Namenda) 5 mg BID GTB Last administered on 08/01/18 08:44; Admin Dose 5 MG; Start 07/28/18 at 22:00 Metoprolol Tartrate (Lopressor) 25 mg BID GTB Last administered on 07/31/18 23:27; Admin Dose 25 MG; Start 07/28/18 at 22:00 Saccharomyces Boulardii (Florastor) 250 mg BID GTB Last administered on 08/01/18 08:43; Admin Dose 250 MG; Start 07/28/18 at 22:00 Terazosin HCl (Hytrin) 1 mg HS GTB Last administered on 07/31/18 23:28; Admin Dose 1 MG; Start 07/28/18 at 22:00 Valproate Sodium (Depakene Liquid Cup) 250 mg QPM GTB Last administered on 07/31/18 23:28; Admin Dose 250 MG; Start 07/28/18 at 22:00 Lansoprazole (Prevacid) 30 mg DAILY@06 GTB Last administered on 08/01/18 05:54; Admin Dose 30 MG; Start 07/29/18 at 06:26 Vancomycin HCl 1.5 gm/Sodium Chloride 250 ml @ 83.333 mls/ hr Q24H IVPB Last administered on 08/01/18 10:33; Admin Dose 83.333 MLS/HR; Start 07/30/18 at 11:00 Insulin Aspart (Novolog Insulin Pen) (Adult SC Insulin - Mild Algorithm)... Q6 SC Last administered on 08/01/18at 06:03; Admin Dose 1 UNIT; Start 08/01/18 at 06:00 Miscellaneous Information (*Rx Drug Level Order Reminder*) 1 1000 ONCE XX ; Start 08/02/18 at 10:00; Stop 08/02/18 at 10:01 THUAN LOVE Aug 01, 2018 12:03
[2018-08-01] MEDS: LISINOPRIL 20 MG TAB PO SCH (13:00)
--- NOTE | 2018-08-01 14:36 | CONS ---
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 Recommend daily dressing changes with betadine and dry sterile dressings. Wound cultures showing polymicrobial growth which includes MRSA. Appreciate vascular surgery input. Continue with IV abx as recommended. Offload feet/heels with pillows. Consultation Date/Type/Reason Admit Date/Time Jul 25, 2018 at 22:41 Initial Consult Date 07/26/18 Date/Time of Note DATE: 08/01/18 TIME: 14:36 24 HR Interval Summary Free Text/Dictation No acute events overnight Exam/Review of Systems Exam Vitals Vital Signs Date Temp Pulse Resp B/P (MAP) Pulse Ox O2 O2 Flow FiO2 Time Delivery Rate 08/01/18 Nasal 2.0 08:40 Cannula 08/01/18 99.1 80 17 109/57 95 08:13 (74) Intake and Output 07/31/18 07/31/18 08/01/18 1515:00 23:00 07:00 IntakeIntake Total 300 ml 1480 ml 100 ml OutputOutput Total 1640 ml 1200 ml BalanceBalance 300 ml -160 ml -1100 ml Exam Left foot the lateral 5th metatarsal fibrogranular wound base, no purulence appreciated, measured 3 x 3 x 0.4cm. The ulcer probed to bone. Left heel ulcer measuring 0.4 x 0.4 x 0.2cm fibrogranular wound bed does not probe to bone, no purulence appreciated Left medial malleolus ulcer 0.7 x 0.5 x 0.2cm fibrotic wound base and unable to probe to bone R 1st MPJ ulceration site 2 x 1.5 x 0.3cm which probed to bone fibrogranular base R medial midfoot ulceration site 8 x 5 x 0.9cm which probed to bone with a fibrogranular wound base and no purulence noted. The ulcer tunnels towards the tarsal tunnel and distal to the 1st MPJ area R heel ulceration site 8 x 5.5 x 1.1cm which probed to bone with a fibrogranular wound base. There was achilles tendon insertion exposed and calcaneal bone exposed. R lateral distal 5th metatarsal ulceration site 4 x 2 x 0.4cm which probes to bone wound base is fibrogranular. R lateral mid 5th metatarsal ulcer 6 x 3.5 x 0.4 which probes to bone wound base is fibrogranular R lateral malleolar ulcer 2.5 x 2 x 0.4 which probes to bone wound base is fib rogranular Non invasive arterial studies IMPRESSION: 1. No focal hemodynamically significant stenosis. 2. Blunted waveforms in the distal bilateral lower extremities compatible with vascular resistance. R foot x-ray IMPRESSION: 1. Soft tissue ulcer overlying the first metatarsal phalangeal joint medially. 2. Atherosclerosis. 3. Possible lytic lesion of the base of the fifth metatarsal laterally. Correlation with MRI advised. 4. Otherwise unremarkable images of the right foot. L foot x-ray IMPRESSION: 1. Atherosclerosis. 2. Otherwise unremarkable images of the left foot. Results Result Diagram: 08/01/18 0630 08/01/18 0630 Results 24hrs Laboratory Tests Test 07/31/18 15:26 07/31/18 18:04 07/31/18 23:14 08/01/18 01:56 White Blood Count 14.8 H Red Blood Count 3.64 L Hemoglobin 10.1 L Hematocrit 32.2 L Mean Corpuscular 88.5 Volume Mean Corpuscular 27.7 L Hemoglobin Mean Corpuscular 31.4 L Hemoglobin Concent Red Cell 15.6 H Distribution Width Platelet Count 393 Mean Platelet Volume 11.1 H Immature 7.200 H Granulocytes % Neutrophils % Segmented 70 Neutrophils % (Manual) Band Neutrophils % 6 H (Manual) Lymphocytes % Lymphocytes % 9 L (Manual) Reactive Lymphocytes 1 H % (Manual) Monocytes % Monocytes % (Manual) 7 Eosinophils % Eosinophils % 2 (Manual) Basophils % Metamyelocytes % 1 H (manual) Myelocytes % 4 H (Manual) Nucleated Red Blood 0.1 H Cells % Immature 1.070 H Granulocytes # Neutrophils # Neutrophils # 10.5 H (Manual) Band Neutrophils # 0.8 H Lymphocytes (Manual) 1.3 Lymphocytes # Reactive Lymphocytes 0.1 H # Monocytes # Monocytes # (Manual) 1.0 H Eosinophils # Basophils # Metamyelocytes # 0.1 H Myelocytes # 0.5 H Nucleated Red Blood Cells # Platelet Estimate NORMAL Giant Platelets 1 H Polychromasia 1+ Poikilocytosis 1+ Anisocytosis 1+ Microcytosis 1+ Ovalocytes 1+ Prothrombin Time 15.1 H Prothrombin Time 1.2 Ratio INR International 1.18 Normalized Ratio Activated 38.6 H Partial Thromboplast Time Thrombin Time 15.7 Sodium Level 140 Potassium Level 3.6 Chloride Level 107 Carbon Dioxide Level 28 Anion Gap 5 Blood Urea Nitrogen 16 Creatinine 0.44 L Est Glomerular Filtrat Rate mL/min Glucose Level 93 # Calcium Level 8.2 L Magnesium Level 2.1 Bedside Glucose 95 92 116 Test 08/01/18 06:01 08/01/18 06:30 08/01/18 11:57 Bedside Glucose 162 162 White Blood Count 17.3 H Red Blood Count 3.16 L Hemoglobin 8.8 L Hematocrit 28.4 L Mean Corpuscular 89.9 Volume Mean Corpuscular 27.8 L Hemoglobin Mean Corpuscular 31.0 L Hemoglobin Concent Red Cell 15.6 H Distribution Width Platelet Count 393 Mean Platelet Volume 11.7 H Immature 5.800 H Granulocytes % Neutrophils % 75.4 Segmented 73 Neutrophils % (Manual) Band Neutrophils % 9 H (Manual) Lymphocytes % 7.3 L Lymphocytes % 11 L (Manual) Reactive Lymphocytes 1 H % (Manual) Monocytes % 8.3 Monocytes % (Manual) 2 Eosinophils % 2.3 Eosinophils % 2 (Manual) Basophils % 0.9 Basophils % (Manual) 2 Nucleated Red Blood 0.0 Cells % Immature 1.000 H Granulocytes # Neutrophils # 13.0 H Neutrophils # 12.9 H (Manual) Band Neutrophils # 1.5 H Lymphocytes (Manual) 1.9 Lymphocytes # 1.3 Reactive Lymphocytes 0.1 H # Monocytes # 1.4 H Monocytes # (Manual) 0.3 Eosinophils # 0.4 Basophils # 0.2 H Basophils # (Manual) 0.3 H Nucleated Red Blood 0.0 Cells # Platelet Estimate NORMAL Polychromasia 1+ Anisocytosis 2+ Microcytosis 2+ Sodium Level 139 Potassium Level 3.8 Chloride Level 110 Carbon Dioxide Level 27 Anion Gap 2 L Blood Urea Nitrogen 18 Creatinine 0.43 L Est Glomerular Filtrat Rate mL/min Glucose Level 156 Calcium Level 8.2 L Medications Medication Current Medications IV Flush (NS 3 ml) 3 ml PER PROTOCOL IV ; Start 07/25/18 at 23:00 Ondansetron HCl (Zofran Inj) 4 mg Q6H PRN IV NAUSEA/VOMITING; Start 07/25/18 at 23:00 Acetaminophen (Tylenol Tab) 650 mg Q6H PRN PO .PAIN 1-3 OR TEMP Last administered on 07/31/18 09:14; Admin Dose 650 MG; Start 07/25/18 at 23:00 Morphine Sulfate (morphine) 2 mg Q4H PRN IV .PAIN 7-10 Last administered on 08/01/18 10:33; Admin Dose 2 MG; Start 07/25/18 at 23:00 Enoxaparin Sodium (Lovenox) 30 mg DAILY SC Last administered on 08/01/18 08:42; Admin Dose 30 MG; Start 07/26/18 at 09:00 Cefepime HCl 50 ml @ 100 mls/hr Q8 IVPB Last administered on 08/01/18 13:00; Admin Dose 100 MLS/HR; Start 07/26/18 at 06:00 Vancomycin HCl (Vanco Iv Per Pharmacy) VANCOMYCIN PER PHARMACY PER PROTOCOL XX ; Start 07/25/18 at 23:00 Miscellaneous Information (Pending Santyl Order For Wound Care) This patient fajardo... PRN PRN XX WOUND CARE; Start 07/26/18 at 06:00 Acetaminophen (Tylenol Tab) 650 mg Q4H PRN PO MILD PAIN LEVEL 1-3 Last administered on 07/30/18 11:54; Admin Dose 650 MG; Start 07/26/18 at 11:00 Amiodarone HCl (Cordarone) 200 mg QAM PO Last administered on 08/01/18 08:43; Admin Dose 200 MG; Start 07/26/18 at 13:00 Amlodipine Besylate (Norvasc) 5 mg DAILY PO Last administered on 08/01/18 08:41; Admin Dose 5 MG; Start 07/26/18 at 13:00 Aspirin (Halfprin) 81 mg DAILY PO Last administered on 08/01/18 08:44; Admin Dose 81 MG; Start 07/26/18 at 13:00 Bisacodyl (Dulcolax) 10 mg DAILY PRN PO CONSTIPATION; Start 07/26/18 at 11:00 Calcium/Vitamin D (Oyster Shell/ Vit-D (500/200)) 1 tab DAILY PO Last administered on 08/01/18 08:44; Admin Dose 1 TAB; Start 07/26/18 at 13:00 Furosemide (Lasix) 10 mg DAILY PO Last administered on 08/01/18at 08:44; Admin Dose 10 MG; Start 07/26/18 at 13:00 Lisinopril (Zestril) 40 mg DAILY@1400 PO Last administered on 08/01/18at 13:00; Admin Dose 40 MG; Start 07/26/18 at 16:00 Magnesium Hydroxide (Milk Of Mag) 30 ml QHS PRN PO CONSTIPATION; Start 07/26/18 at 11:00 Nitroglycerin (Nitroglycerin (Sl Tab) 0.4 Mg) 1 tab Q5M PRN SL CHEST PAIN; Start 07/26/18 at 11:00 Valproate Sodium (Depakene Liquid Cup) 125 mg DAILY PO Last administered on 08/01/18at 08:42; Admin Dose 125 MG; Start 07/26/18 at 13:00 Sodium Hypochlorite (Dakins Diluted ()) 1 applic DAILY TP Last administered on 07/31/18at 09:19; Admin Dose 1 APPLIC; Start 07/27/18 at 09:00 Miscellaneous Information 1 ea NOTE XX ; Start 07/26/18 at 14:30 Glucose (Glutose) 15 gm Q15M PRN PO DECREASED GLUCOSE; Start 07/26/18 at 14:30 Glucose (Glutose) 22.5 gm Q15M PRN PO DECREASED GLUCOSE; Start 07/26/18 at 14:30 Dextrose (D50w Syringe) 25 ml Q15M PRN IV DECREASED GLUCOSE; Start 07/26/18 at 14:30 Dextrose (D50w Syringe) 50 ml Q15M PRN IV DECREASED GLUCOSE; Start 07/26/18 at 14:30 Glucagon (Glucagen) 1 mg Q15M PRN IM DECREASED GLUCOSE; Start 07/26/18 at 14:30 Glucose (Glutose) 15 gm Q15M PRN BUCCAL DECREASED GLUCOSE; Start 07/26/18 at 14:30 Diagnostic Test (Pha) (Accu-Chek) 1 ea 02 XX Last administered on 07/28/18at 01:47; Admin Dose 1 EA; Start 07/27/18 at 02:00 Mupirocin (Bactroban) 1 applic BID TOP Last administered on 08/01/18at 09:21; Admin Dose 1 APPLIC; Start 07/27/18 at 17:00 Quetiapine Fumarate (Seroquel) 25 mg BID GTB Last administered on 08/01/18 08:44; Admin Dose 25 MG; Start 07/28/18 at 00:00 Insulin Glargine (Lantus) 10 units DAILY@0800 SC Last administered on 08/01/18 09:21; Admin Dose 10 UNITS; Start 07/28/18 at 08:00 Amiodarone HCl (Cordarone) 100 mg QHS GTB Last administered on 07/31/18 23:28; Admin Dose 100 MG; Start 07/28/18 at 22:00 Memantine (Namenda) 5 mg BID GTB Last administered on 08/01/18 08:44; Admin Dose 5 MG; Start 07/28/18 at 22:00 Metoprolol Tartrate (Lopressor) 25 mg BID GTB Last administered on 07/31/18 23:27; Admin Dose 25 MG; Start 07/28/18 at 22:00 Saccharomyces Boulardii (Florastor) 250 mg BID GTB Last administered on 08/01/18 08:43; Admin Dose 250 MG; Start 07/28/18 at 22:00 Terazosin HCl (Hytrin) 1 mg HS GTB Last administered on 07/31/18 23:28; Admin Dose 1 MG; Start 07/28/18 at 22:00 Valproate Sodium (Depakene Liquid Cup) 250 mg QPM GTB Last administered on 07/31/18 23:28; Admin Dose 250 MG; Start 07/28/18 at 22:00 Lansoprazole (Prevacid) 30 mg DAILY@06 GTB Last administered on 08/01/18 05:54; Admin Dose 30 MG; Start 07/29/18 at 06:26 Vancomycin HCl 1.5 gm/Sodium Chloride 250 ml @ 83.333 mls/ hr Q24H IVPB Last administered on 08/01/18 10:33; Admin Dose 83.333 MLS/HR; Start 07/30/18 at 11:00 Insulin Aspart (Novolog Insulin Pen) (Adult SC Insulin - Mild Algorithm)... Q6 SC Last administered on 08/01/18 12:53; Admin Dose 1 UNIT; Start 08/01/18 at 06:00 Miscellaneous Information (*Rx Drug Level Order Reminder*) 1 1000 ONCE XX ; Start 08/02/18 at 10:00; Stop 08/02/18 at 10:01 SHAHANA TERRAZAS DPM Aug 01, 2018 14:36
[2018-08-01 14:44] VITALS: BP 116/57; PULSE 72; RESP 19
[2018-08-01] MEDS: DAKINS 0.0125%(1/40) 473 ML SOLUTION TP SCH (18:05)
[2018-08-01 20:30] VITALS: BP 123/60; PULSE 85; RESP 20
[2018-08-01] MEDS: VALPROIC ACID LIQUID CUP 250 MG/5 ML CUP GTB SCH (20:56)
[2018-08-01] MEDS: AMIODARONE 200 MG TAB GTB SCH (20:57)
[2018-08-01] MEDS: TERAZOSIN 1 MG CAP GTB SCH (20:57)
[2018-08-02] MEDS: ACCUCHECK AT 2AM (Patients on SS coverage) XX SCH (01:30)
[2018-08-02 02:44] VITALS: BP 111/66; PULSE 72; RESP 18
[2018-08-02] MEDS: CEFEPIME 2GM/50 ML (PMX) 50 ML IVPB SCH ×3 (05:43→21:31)
[2018-08-02] MEDS: LANSOPRAZOLE 30 MG CAP GTB SCH (05:43)
[2018-08-02] MEDS: INSULIN ASPART [NOVOLOG] 3 ML PEN SC SCH ×3 (05:43→17:36)
[2018-08-02] MEDS: morphine 2 MG INJ IV PRN ×3 (05:44→15:51)
[2018-08-02] MEDS: INSULIN GLARGINE [LANTus] (100 UNITS/ML) SYG SC SCH (08:07)
[2018-08-02] MEDS: ENOXAPARIN 30 MG/0.3 ML SYG SC SCH (08:12)
[2018-08-02] MEDS: SACCHAROMYCES BOULARDII 250 MG CAP GTB SCH ×2 (08:13→20:49)
[2018-08-02] MEDS: VALPROIC ACID LIQUID CUP 250 MG/5 ML CUP PO SCH (08:13)
[2018-08-02] MEDS: AMLODIPINE 5 MG TAB PO SCH (08:14)
[2018-08-02] MEDS: CALCIUM/VITAMIN D (500/200) TAB PO SCH (08:14)
[2018-08-02] MEDS: FUROSEMIDE 20 MG TAB PO SCH (08:14)
[2018-08-02 08:15] VITALS: BP 124/58; PULSE 78; RESP 20
[2018-08-02] MEDS: ASPIRIN (EC) 81 MG TAB PO SCH (08:15)
[2018-08-02] MEDS: QUETIAPINE 25 MG TAB GTB SCH ×2 (08:15→20:49)
[2018-08-02] MEDS: METOPROLOL 25 MG TAB GTB SCH ×2 (08:15→20:53)
[2018-08-02] MEDS: MEMANTINE 5 MG TAB GTB SCH ×2 (08:15→20:53)
[2018-08-02] MEDS: AMIODARONE 200 MG TAB PO SCH (10:17)
[2018-08-02] MEDS: DAKINS 0.0125%(1/40) 473 ML SOLUTION TP SCH (10:18)
[2018-08-02] MEDS: MUPIROCIN 2% 22 GM OINT TOP SCH ×2 (10:18→20:54)
[2018-08-02] MEDS: BALSAM PERU/CASTOR OIL 60 GM TUBE TOP SCH ×2 (10:19→20:54)
[2018-08-02] MEDS: VANCOMYCIN HCL 1.5 GM in SOD CHLORIDE 0.9% 250 ML IVPB SCH (12:59)
--- NOTE | 2018-08-02 13:18 | CONS ---
Assessment/Plan Assessment/Plan Hospital Course (Demo Recall) Sleeping, looks comfortable, afebrile Microbiology: Blood cultures remain negative. Wound cultures growing MRSA, enterococcus, Proteus mirabilis, E. coli, Corynebacterium species Antimicrobials: Vancomycin, cefepime Physical examination: Chronically ill-appearing debilitated elderly man in no distress. Head atraumatic normocephalic neck is supple chest rise symmetrical breath sounds diminished bases. Heart: S1-S2. Abdomen soft bowel sounds present. Extremities with bilateral lower extremities dressing intact Assessment: 1. Sepsis, present on admission 2. Bilateral foot gangrene, status post debridement 07/26/18, 07/31/18 3. Diabetes with diabetic neuropathy 4. Aspiration pneumonia 5. Dementia 6. Dysphagia status post PEG Plan: Remains unchanged, chest x-ray noted, continue antibiotics/aspiration precautions, follow podiatry recommendations Consultation Date/Type/Reason Admit Date/Time Jul 25, 2018 at 22:41 Initial Consult Date 07/26/18 Type of Consult id Date/Time of Note DATE: 08/02/18 TIME: 13:17 Exam/Review of Systems Exam Vitals Vital Signs Date Temp Pulse Resp B/P (MAP) Pulse Ox O2 O2 Flow FiO2 Time Delivery Rate 08/02/18 97.6 78 20 124/58 98 Room Air 08:15 (80) 08/01/18 20:00 Intake and Output 08/01/18 08/01/18 08/02/18 1515:00 23:00 07:00 IntakeIntake Total 300 ml 1750 ml 370 ml OutputOutput Total 1400 ml 600 ml BalanceBalance 300 ml 350 ml -230 ml Results Result Diagram: 08/01/18 0630 08/01/18 0630 Results 24hrs Laboratory Tests Test 08/01/18 17:51 08/01/18 23:42 08/02/18 05:42 08/02/18 08:05 Bedside Glucose 140 140 138 162 Test 08/02/18 10:27 08/02/18 12:57 Vancomycin Level 13.4 Trough Bedside Glucose 174 Medications Medication Current Medications IV Flush (NS 3 ml) 3 ml PER PROTOCOL IV ; Start 07/25/18 at 23:00 Ondansetron HCl (Zofran Inj) 4 mg Q6H PRN IV NAUSEA/VOMITING; Start 07/25/18 at 23:00 Acetaminophen (Tylenol Tab) 650 mg Q6H PRN PO .PAIN 1-3 OR TEMP Last administered on 07/31/18 09:14; Admin Dose 650 MG; Start 07/25/18 at 23:00 Morphine Sulfate (morphine) 2 mg Q4H PRN IV .PAIN 7-10 Last administered on 08/02/18 11:00; Admin Dose 2 MG; Start 07/25/18 at 23:00 Enoxaparin Sodium (Lovenox) 30 mg DAILY SC Last administered on 08/02/18 08:12; Admin Dose 30 MG; Start 07/26/18 at 09:00 Cefepime HCl 50 ml @ 100 mls/hr Q8 IVPB Last administered on 08/02/18 05:43; Admin Dose 100 MLS/HR; Start 07/26/18 at 06:00 Vancomycin HCl (Vanco Iv Per Pharmacy) VANCOMYCIN PER PHARMACY PER PROTOCOL XX ; Start 07/25/18 at 23:00 Miscellaneous Information (Pending Santyl Order For Wound Care) This patient fajardo... PRN PRN XX WOUND CARE; Start 07/26/18 at 06:00 Acetaminophen (Tylenol Tab) 650 mg Q4H PRN PO MILD PAIN LEVEL 1-3 Last administered on 07/30/18at 11:54; Admin Dose 650 MG; Start 07/26/18 at 11:00 Amiodarone HCl (Cordarone) 200 mg QAM PO Last administered on 08/02/18 10:17; Admin Dose 200 MG; Start 07/26/18 at 13:00 Amlodipine Besylate (Norvasc) 5 mg DAILY PO Last administered on 08/02/18 08:14; Admin Dose 5 MG; Start 07/26/18 at 13:00 Aspirin (Halfprin) 81 mg DAILY PO Last administered on 08/02/18 08:15; Admin Dose 81 MG; Start 07/26/18 at 13:00 Bisacodyl (Dulcolax) 10 mg DAILY PRN PO CONSTIPATION; Start 07/26/18 at 11:00 Calcium/Vitamin D (Oyster Shell/ Vit-D (500/200)) 1 tab DAILY PO Last administered on 08/02/18 08:14; Admin Dose 1 TAB; Start 07/26/18 at 13:00 Furosemide (Lasix) 10 mg DAILY PO Last administered on 08/02/18at 08:14; Admin Dose 10 MG; Start 07/26/18 at 13:00 Lisinopril (Zestril) 40 mg DAILY@1400 PO Last administered on 08/01/18at 13:00; Admin Dose 40 MG; Start 07/26/18 at 16:00 Magnesium Hydroxide (Milk Of Mag) 30 ml QHS PRN PO CONSTIPATION; Start 07/26/18 at 11:00 Nitroglycerin (Nitroglycerin (Sl Tab) 0.4 Mg) 1 tab Q5M PRN SL CHEST PAIN; Start 07/26/18 at 11:00 Valproate Sodium (Depakene Liquid Cup) 125 mg DAILY PO Last administered on 08/02/18at 08:13; Admin Dose 125 MG; Start 07/26/18 at 13:00 Sodium Hypochlorite (Dakins Diluted ()) 1 applic DAILY TP Last administered on 08/02/18at 10:18; Admin Dose 1 APPLIC; Start 07/27/18 at 09:00 Miscellaneous Information 1 ea NOTE XX ; Start 07/26/18 at 14:30 Glucose (Glutose) 15 gm Q15M PRN PO DECREASED GLUCOSE; Start 07/26/18 at 14:30 Glucose (Glutose) 22.5 gm Q15M PRN PO DECREASED GLUCOSE; Start 07/26/18 at 14:30 Dextrose (D50w Syringe) 25 ml Q15M PRN IV DECREASED GLUCOSE; Start 07/26/18 at 14:30 Dextrose (D50w Syringe) 50 ml Q15M PRN IV DECREASED GLUCOSE; Start 07/26/18 at 14:30 Glucagon (Glucagen) 1 mg Q15M PRN IM DECREASED GLUCOSE; Start 07/26/18 at 14:30 Glucose (Glutose) 15 gm Q15M PRN BUCCAL DECREASED GLUCOSE; Start 07/26/18 at 14:30 Diagnostic Test (Pha) (Accu-Chek) 1 ea 02 XX Last administered on 07/28/18at 01:47; Admin Dose 1 EA; Start 07/27/18 at 02:00 Mupirocin (Bactroban) 1 applic BID TOP Last administered on 08/02/18at 10:18; Admin Dose 1 APPLIC; Start 07/27/18 at 17:00 Quetiapine Fumarate (Seroquel) 25 mg BID GTB Last administered on 08/02/18 08:15; Admin Dose 25 MG; Start 07/28/18 at 00:00 Insulin Glargine (Lantus) 10 units DAILY@0800 SC Last administered on 08/02/18 08:07; Admin Dose 10 UNITS; Start 07/28/18 at 08:00 Amiodarone HCl (Cordarone) 100 mg QHS GTB Last administered on 08/01/18 20:57; Admin Dose 100 MG; Start 07/28/18 at 22:00 Memantine (Namenda) 5 mg BID GTB Last administered on 08/02/18 08:15; Admin Dose 5 MG; Start 07/28/18 at 22:00 Metoprolol Tartrate (Lopressor) 25 mg BID GTB Last administered on 08/02/18 08:15; Admin Dose 25 MG; Start 07/28/18 at 22:00 Saccharomyces Boulardii (Florastor) 250 mg BID GTB Last administered on 08/02/18 08:13; Admin Dose 250 MG; Start 07/28/18 at 22:00 Terazosin HCl (Hytrin) 1 mg HS GTB Last administered on 08/01/18 20:57; Admin Dose 1 MG; Start 07/28/18 at 22:00 Valproate Sodium (Depakene Liquid Cup) 250 mg QPM GTB Last administered on 08/01/18 20:56; Admin Dose 250 MG; Start 07/28/18 at 22:00 Lansoprazole (Prevacid) 30 mg DAILY@06 GTB Last administered on 08/02/18 05:43; Admin Dose 30 MG; Start 07/29/18 at 06:26 Vancomycin HCl 1.5 gm/Sodium Chloride 250 ml @ 83.333 mls/ hr Q24H IVPB Last administered on 08/02/18 12:59; Admin Dose 83.333 MLS/HR; Start 07/30/18 at 11:00 Insulin Aspart (Novolog Insulin Pen) (Adult SC Insulin - Mild Algorithm)... Q6 SC Last administered on 08/02/18 12:59; Admin Dose 1 UNIT; Start 08/01/18 at 06:00 JAMIE WORRELL NP Aug 02, 2018 13:18
--- NOTE | 2018-08-02 14:17 | PN ---
Date/Time of Note Date/Time of Note DATE: 08/02/18 TIME: 14:16 Assessment/Plan VTE Prophylaxis Risk score (from Ns)>0 risk: 10 SCD applied (from Ns): No Lines/Catheters IV [facility]ter [facility]from [facility] Urinary Cath still in place: Yes Assessment/Plan Assessment/Plan - Sepsis due to bilateral foot gangrene. Right foot cellulitic lesion, questionable osteomyelitis. Continue vancomycin and cefepime. Dr. Palomino is following in infection disease consultation. - Bilateral foot gangrene. Status post bilateral foot debridement on 07/31/2018. Dr. Roberts is following in podiatry consultation. 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 - Peripheral vascular disease. Status post evaluation by Dr. Horne in vascular surgery consultation, no aggressive treatment is recommended. - Possible Aspiration PNA - Paroxysmal atrial fibrillation. Regular hear rate. Continue amiodarone, aspirin, BB. Dr. Castrejon is following in cardiology consultation. - Diabetes. Continue NovoLog. - Dysphagia. Continue G-tube feeding. - Dementia with behavioral disturbances. Continue Namenda and Seroquel. - DNR status Further recommendations depend on clinical course. Plan of care discussed with Dr Figueroa. Result Diagram: 08/01/18 0630 08/01/18 0630 Results 24hrs Laboratory Tests Test 08/01/18 17:51 08/01/18 23:42 08/02/18 05:42 08/02/18 08:05 Bedside Glucose 140 140 138 162 Test 08/02/18 10:27 08/02/18 12:57 Vancomycin Level 13.4 Trough Bedside Glucose 174 Exam/Review of Systems Exam Vitals Vital Signs Date Temp Pulse Resp B/P (MAP) Pulse Ox O2 O2 Flow FiO2 Time Delivery Rate 08/02/18 97.6 78 20 124/58 98 Room Air 08:15 (80) 08/01/18 20:00 Intake and Output 08/01/18 08/01/18 08/02/18 1515:00 23:00 07:00 IntakeIntake Total 300 ml 1750 ml 370 ml OutputOutput Total 1400 ml 600 ml BalanceBalance 300 ml 350 ml -230 ml Results Results 24hrs Laboratory Tests Test 08/01/18 17:51 08/01/18 23:42 08/02/18 05:42 08/02/18 08:05 Bedside Glucose 140 140 138 162 Test 08/02/18 10:27 08/02/18 12:57 Vancomycin Level 13.4 Trough Bedside Glucose 174 Medications Medication Current Medications IV Flush (NS 3 ml) 3 ml PER PROTOCOL IV ; Start 07/25/18 at 23:00 Ondansetron HCl (Zofran Inj) 4 mg Q6H PRN IV NAUSEA/VOMITING; Start 07/25/18 at 23:00 Acetaminophen (Tylenol Tab) 650 mg Q6H PRN PO .PAIN 1-3 OR TEMP Last administered on 07/31/18 09:14; Admin Dose 650 MG; Start 07/25/18 at 23:00 Morphine Sulfate (morphine) 2 mg Q4H PRN IV .PAIN 7-10 Last administered on 08/02/18 11:00; Admin Dose 2 MG; Start 07/25/18 at 23:00 Enoxaparin Sodium (Lovenox) 30 mg DAILY SC Last administered on 08/02/18 08:12; Admin Dose 30 MG; Start 07/26/18 at 09:00 Cefepime HCl 50 ml @ 100 mls/hr Q8 IVPB Last administered on 08/02/18 05:43; Admin Dose 100 MLS/HR; Start 07/26/18 at 06:00 Vancomycin HCl (Vanco Iv Per Pharmacy) VANCOMYCIN PER PHARMACY PER PROTOCOL XX ; Start 07/25/18 at 23:00 Miscellaneous Information (Pending Santyl Order For Wound Care) This patient fajardo... PRN PRN XX WOUND CARE; Start 07/26/18 at 06:00 Acetaminophen (Tylenol Tab) 650 mg Q4H PRN PO MILD PAIN LEVEL 1-3 Last administered on 07/30/18 11:54; Admin Dose 650 MG; Start 07/26/18 at 11:00 Amiodarone HCl (Cordarone) 200 mg QAM PO Last administered on 08/02/18 10:17; Admin Dose 200 MG; Start 07/26/18 at 13:00 Amlodipine Besylate (Norvasc) 5 mg DAILY PO Last administered on 08/02/18 08:14; Admin Dose 5 MG; Start 07/26/18 at 13:00 Aspirin (Halfprin) 81 mg DAILY PO Last administered on 4/19/19at 08:15; Admin Dose 81 MG; Start 07/26/18 at 13:00 Bisacodyl (Dulcolax) 10 mg DAILY PRN PO CONSTIPATION; Start 07/26/18 at 11:00 Calcium/Vitamin D (Oyster Shell/ Vit-D (500/200)) 1 tab DAILY PO Last administered on 08/02/18at 08:14; Admin Dose 1 TAB; Start 07/26/18 at 13:00 Furosemide (Lasix) 10 mg DAILY PO Last administered on 08/02/18at 08:14; Admin Dose 10 MG; Start 07/26/18 at 13:00 Lisinopril (Zestril) 40 mg DAILY@1400 PO Last administered on 08/01/18at 13:00; Admin Dose 40 MG; Start 07/26/18 at 16:00 Magnesium Hydroxide (Milk Of Mag) 30 ml QHS PRN PO CONSTIPATION; Start 07/26/18 at 11:00 Nitroglycerin (Nitroglycerin (Sl Tab) 0.4 Mg) 1 tab Q5M PRN SL CHEST PAIN; Start 07/26/18 at 11:00 Valproate Sodium (Depakene Liquid Cup) 125 mg DAILY PO Last administered on 08/02/18at 08:13; Admin Dose 125 MG; Start 07/26/18 at 13:00 Sodium Hypochlorite (Dakins Diluted ()) 1 applic DAILY TP Last administered on 08/02/18at 10:18; Admin Dose 1 APPLIC; Start 07/27/18 at 09:00 Miscellaneous Information 1 ea NOTE XX ; Start 07/26/18 at 14:30 Glucose (Glutose) 15 gm Q15M PRN PO DECREASED GLUCOSE; Start 07/26/18 at 14:30 Glucose (Glutose) 22.5 gm Q15M PRN PO DECREASED GLUCOSE; Start 07/26/18 at 14:30 Dextrose (D50w Syringe) 25 ml Q15M PRN IV DECREASED GLUCOSE; Start 07/26/18 at 14:30 Dextrose (D50w Syringe) 50 ml Q15M PRN IV DECREASED GLUCOSE; Start 07/26/18 at 14:30 Glucagon (Glucagen) 1 mg Q15M PRN IM DECREASED GLUCOSE; Start 07/26/18 at 14:30 Glucose (Glutose) 15 gm Q15M PRN BUCCAL DECREASED GLUCOSE; Start 07/26/18 at 14:30 Diagnostic Test (Pha) (Accu-Chek) 1 ea 02 XX Last administered on 07/28/18 01:47; Admin Dose 1 EA; Start 07/27/18 at 02:00 Mupirocin (Bactroban) 1 applic BID TOP Last administered on 08/02/18 10:18; Admin Dose 1 APPLIC; Start 07/27/18 at 17:00 Quetiapine Fumarate (Seroquel) 25 mg BID GTB Last administered on 08/02/18 08:15; Admin Dose 25 MG; Start 07/28/18 at 00:00 Insulin Glargine (Lantus) 10 units DAILY@0800 SC Last administered on 08/02/18 08:07; Admin Dose 10 UNITS; Start 07/28/18 at 08:00 Amiodarone HCl (Cordarone) 100 mg QHS GTB Last administered on 08/01/18 20:57; Admin Dose 100 MG; Start 07/28/18 at 22:00 Memantine (Namenda) 5 mg BID GTB Last administered on 08/02/18 08:15; Admin D ose 5 MG; Start 07/28/18 at 22:00 Metoprolol Tartrate (Lopressor) 25 mg BID GTB Last administered on 08/02/18 08:15; Admin Dose 25 MG; Start 07/28/18 at 22:00 Saccharomyces Boulardii (Florastor) 250 mg BID GTB Last administered on 08/02/18 08:13; Admin Dose 250 MG; Start 07/28/18 at 22:00 Terazosin HCl (Hytrin) 1 mg HS GTB Last administered on 08/01/18 20:57; Admin Dose 1 MG; Start 07/28/18 at 22:00 Valproate Sodium (Depakene Liquid Cup) 250 mg QPM GTB Last administered on 08/01/18 20:56; Admin Dose 250 MG; Start 07/28/18 at 22:00 Lansoprazole (Prevacid) 30 mg DAILY@06 GTB Last administered on 08/02/18 05:43; Admin Dose 30 MG; Start 07/29/18 at 06:26 Vancomycin HCl 1.5 gm/Sodium Chloride 250 ml @ 83.333 mls/ hr Q24H IVPB Last administered on 08/02/18at 12:59; Admin Dose 83.333 MLS/HR; Start 07/30/18 at 11:00 Insulin Aspart (Novolog Insulin Pen) (Adult SC Insulin - Mild Algorithm)... Q6 SC Last administered on 08/02/18at 12:59; Admin Dose 1 UNIT; Start 08/01/18 at 06:00 COLE LOWE Aug 02, 2018 14:17
[2018-08-02 14:30] VITALS: BP 126/62; PULSE 80; RESP 20
[2018-08-02] MEDS: LISINOPRIL 20 MG TAB PO SCH (15:53)
[2018-08-02 20:00] VITALS: BP 131/59; PULSE 76; RESP 18
[2018-08-02] MEDS: VALPROIC ACID LIQUID CUP 250 MG/5 ML CUP GTB SCH (20:49)
[2018-08-02] MEDS: AMIODARONE 200 MG TAB GTB SCH (20:52)
[2018-08-02] MEDS: TERAZOSIN 1 MG CAP GTB SCH (20:53)
[2018-08-03] MEDS: INSULIN ASPART [NOVOLOG] 3 ML PEN SC SCH ×4 (01:26→17:55)
[2018-08-03] MEDS: ACCUCHECK AT 2AM (Patients on SS coverage) XX SCH (01:27)
[2018-08-03 02:25] VITALS: BP 140/73; PULSE 71; RESP 18
[2018-08-03] MEDS: morphine 2 MG INJ IV PRN ×2 (03:07→20:31)
[2018-08-03] MEDS: LANSOPRAZOLE 30 MG CAP GTB SCH (05:41)
[2018-08-03] MEDS: CEFEPIME 2GM/50 ML (PMX) 50 ML IVPB SCH ×3 (05:41→22:47)
[2018-08-03 08:05] VITALS: BP 124/68; PULSE 86; RESP 18
[2018-08-03] MEDS: ENOXAPARIN 30 MG/0.3 ML SYG SC SCH (09:50)
[2018-08-03] MEDS: INSULIN GLARGINE [LANTus] (100 UNITS/ML) SYG SC SCH (09:50)
[2018-08-03] MEDS: MUPIROCIN 2% 22 GM OINT TOP SCH ×2 (09:54→20:45)
[2018-08-03] MEDS: DAKINS 0.0125%(1/40) 473 ML SOLUTION TP SCH (09:54)
[2018-08-03] MEDS: BALSAM PERU/CASTOR OIL 60 GM TUBE TOP SCH ×2 (09:54→20:45)
[2018-08-03] MEDS: QUETIAPINE 25 MG TAB GTB SCH ×2 (09:55→20:44)
[2018-08-03] MEDS: COLLAGENASE 5 GM (UD JAR) TOP SCH (09:55)
[2018-08-03] MEDS: CALCIUM/VITAMIN D (500/200) TAB PO SCH (09:56)
[2018-08-03] MEDS: SACCHAROMYCES BOULARDII 250 MG CAP GTB SCH ×2 (09:56→20:43)
[2018-08-03] MEDS: AMIODARONE 200 MG TAB PO SCH (09:57)
[2018-08-03] MEDS: AMLODIPINE 5 MG TAB PO SCH (09:57)
[2018-08-03] MEDS: MEMANTINE 5 MG TAB GTB SCH ×2 (09:57→20:43)
[2018-08-03] MEDS: METOPROLOL 25 MG TAB GTB SCH ×2 (09:58→20:44)
[2018-08-03] MEDS: FUROSEMIDE 20 MG TAB PO SCH (09:59)
[2018-08-03] MEDS: VALPROIC ACID LIQUID CUP 250 MG/5 ML CUP PO SCH (10:00)
[2018-08-03] MEDS: ASPIRIN (EC) 81 MG TAB PO SCH (10:02)
[2018-08-03] MEDS: VANCOMYCIN HCL 1.5 GM in SOD CHLORIDE 0.9% 250 ML IVPB SCH (11:09)
--- NOTE | 2018-08-03 13:17 | CONS ---
Assessment/Plan Assessment/Plan Hospital Course (Demo Recall) No acute changes, looks comfortable, no fevers Microbiology: Blood cultures remain negative. Wound cultures growing MRSA, enterococcus, Proteus mirabilis, E. coli, Corynebacterium species Antimicrobials: Vancomycin, cefepime Physical examination: Chronically ill-appearing debilitated elderly man in no distress. Head atraumatic normocephalic neck is supple chest rise symmetrical breath sounds diminished bases. Heart: S1-S2. Abdomen soft bowel sounds present. Extremities with bilateral lower extremities dressing intact Assessment: 1. Sepsis, present on admission 2. Bilateral foot gangrene, status post debridement 07/26/18, 07/31/18 3. Diabetes with diabetic neuropathy 4. Aspiration pneumonia 5. Dementia 6. Dysphagia status post PEG Plan: Remains unchanged, on appropriate antibiotics, continue aspiration precautions, await for pathology report, most likely will need care home IV abx Consultation Date/Type/Reason Admit Date/Time Jul 25, 2018 at 22:41 Initial Consult Date 07/26/18 Type of Consult id Date/Time of Note DATE: 08/03/18 TIME: 13:14 Exam/Review of Systems Exam Vitals Vital Signs Date Temp Pulse Resp B/P (MAP) Pulse Ox O2 O2 Flow FiO2 Time Delivery Rate 08/03/18 98.1 86 18 124/68 94 Room Air 08:05 (86) 08/03/18 2.0 08:00 Intake and Output 08/02/18 08/02/18 08/03/18 1515:00 23:00 07:00 IntakeIntake Total 350 ml 1750 ml OutputOutput Total 1800 ml 350 ml 1000 ml BalanceBalance -1800 ml 0 ml 750 ml Results Result Diagram: 08/03/18 0533 08/03/18 0533 Results 24hrs Laboratory Tests Test 08/02/18 17:34 08/03/18 00:56 08/03/18 01:24 08/03/18 05:33 Bedside Glucose 152 152 157 White Blood Count 12.1 #H Red Blood Count 3.17 L Hemoglobin 8.5 L Hematocrit 27.6 L Mean Corpuscular 87.1 Volume Mean Corpuscular 26.8 L Hemoglobin Mean Corpuscular 30.8 L Hemoglobin Concent Red Cell 16.0 H Distribution Width Platelet Count 401 Mean Platelet Volume 11.7 H Immature 7.800 H Granulocytes % Neutrophils % Segmented 69 Neutrophils % (Manual) Band Neutrophils % 5 H (Manual) Lymphocytes % Lymphocytes % 6 L (Manual) Monocytes % Monocytes % (Manual) 9 Eosinophils % Eosinophils % 5 (Manual) Basophils % Basophils % (Manual) 2 Metamyelocytes % 2 H (manual) Myelocytes % 2 H (Manual) Nucleated Red Blood 0.0 Cells % Immature 0.940 H Granulocytes # Neutrophils # Neutrophils # 8.4 H (Manual) Band Neutrophils # 0.6 Lymphocytes (Manual) 0.7 L Lymphocytes # Monocytes # Monocytes # (Manual) 1.0 H Eosinophils # Basophils # Basophils # (Manual) 0.2 H Metamyelocytes # 0.2 H Myelocytes # 0.2 H Nucleated Red Blood Cells # Platelet Estimate NORMAL Platelet Morphology @See below Comment Polychromasia 2+ Poikilocytosis 1+ Anisocytosis 1+ Ovalocytes 1+ Sodium Level 139 Potassium Level 3.6 Chloride Level 107 Carbon Dioxide Level 30 Anion Gap 2 L Blood Urea Nitrogen 21 H Creatinine 0.45 L Est Glomerular Filtrat Rate mL/min Glucose Level 120 Calcium Level 8.1 L Test 08/03/18 05:39 08/03/18 09:45 08/03/18 12:52 Bedside Glucose 128 183 176 Medications Medication Current Medications IV Flush (NS 3 ml) 3 ml PER PROTOCOL IV ; Start 07/25/18 at 23:00 Ondansetron HCl (Zofran Inj) 4 mg Q6H PRN IV NAUSEA/VOMITING; Start 07/25/18 at 23:00 Acetaminophen (Tylenol Tab) 650 mg Q6H PRN PO .PAIN 1-3 OR TEMP Last administered on 07/31/18at 09:14; Admin Dose 650 MG; Start 07/25/18 at 23:00 Morphine Sulfate (morphine) 2 mg Q4H PRN IV .PAIN 7-10 Last administered on 08/03/18at 03:07; Admin Dose 2 MG; Start 07/25/18 at 23:00 Enoxaparin Sodium (Lovenox) 30 mg DAILY SC Last administered on 08/03/18at 09:50; Admin Dose 30 MG; Start 07/26/18 at 09:00 Cefepime HCl 50 ml @ 100 mls/hr Q8 IVPB Last administered on 08/03/18at 05:41; Admin Dose 100 MLS/HR; Start 07/26/18 at 06:00 Vancomycin HCl (Vanco Iv Per Pharmacy) VANCOMYCIN PER PHARMACY PER PROTOCOL XX ; Start 07/25/18 at 23:00 [facility] This patient fajardo... PRN PRN XX WOUND CARE; Start 07/26/18 at 06:00 Acetaminophen (Tylenol Tab) 650 mg Q4H PRN PO MILD PAIN LEVEL 1-3 Last administered on 07/30/18at 11:54; Admin Dose 650 MG; Start 07/26/18 at 11:00 Amiodarone HCl (Cordarone) 200 mg QAM PO Last administered on 08/03/18 09:57; Admin Dose 200 MG; Start 07/26/18 at 13:00 Amlodipine Besylate (Norvasc) 5 mg DAILY PO Last administered on 08/03/18 09:5 7; Admin Dose 5 MG; Start 07/26/18 at 13:00 Aspirin (Halfprin) 81 mg DAILY PO Last administered on 08/03/18 10:02; Admin Dose 81 MG; Start 07/26/18 at 13:00 Bisacodyl (Dulcolax) 10 mg DAILY PRN PO CONSTIPATION; Start 07/26/18 at 11:00 Calcium/Vitamin D (Oyster Shell/ Vit-D (500/200)) 1 tab DAILY PO Last administered on 08/03/18 09:56; Admin Dose 1 TAB; Start 07/26/18 at 13:00 Furosemide (Lasix) 10 mg DAILY PO Last administered on 08/03/18 09:59; Admin Dose 10 MG; Start 07/26/18 at 13:00 Lisinopril (Zestril) 40 mg DAILY@1400 PO Last administered on 08/02/18at 15:53; Admin Dose 40 MG; Start 07/26/18 at 16:00 Magnesium Hydroxide (Milk Of Mag) 30 ml QHS PRN PO CONSTIPATION; Start 07/26/18 at 11:00 Nitroglycerin (Nitroglycerin (Sl Tab) 0.4 Mg) 1 tab Q5M PRN SL CHEST PAIN; Start 07/26/18 at 11:00 Valproate Sodium (Depakene Liquid Cup) 125 mg DAILY PO Last administered on 08/03/18at 10:00; Admin Dose 125 MG; Start 07/26/18 at 13:00 Sodium Hypochlorite (Dakins Diluted (40)) 1 applic DAILY TP Last administered on 08/03/18at 09:54; Admin Dose 1 APPLIC; Start 07/27/18 at 09:00 Miscellaneous Information 1 ea NOTE XX ; Start 07/26/18 at 14:30 Glucose (Glutose) 15 gm Q15M PRN PO DECREASED GLUCOSE; Start 07/26/18 at 14:30 Glucose (Glutose) 22.5 gm Q15M PRN PO DECREASED GLUCOSE; Start 07/26/18 at 14:30 Dextrose (D50w Syringe) 25 ml Q15M PRN IV DECREASED GLUCOSE; Start 07/26/18 at 14:30 Dextrose (D50w Syringe) 50 ml Q15M PRN IV DECREASED GLUCOSE; Start 07/26/18 at 14:30 Glucagon (Glucagen) 1 mg Q15M PRN IM DECREASED GLUCOSE; Start 07/26/18 at 14:30 Glucose (Glutose) 15 gm Q15M PRN BUCCAL DECREASED GLUCOSE; Start 07/26/18 at 14:30 Diagnostic Test (Pha) (Accu-Chek) 1 ea 02 XX Last administered on 07/28/18at 01:47; Admin Dose 1 EA; Start 07/27/18 at 02:00 Mupirocin (Bactroban) 1 applic BID TOP Last administered on 08/03/18at 09:54; Admin Dose 1 APPLIC; Start 07/27/18 at 17:00 Quetiapine Fumarate (Seroquel) 25 mg BID GTB Last administered on 08/03/18at 09:55; Admin Dose 25 MG; Start 07/28/18 at 00:00 Insulin Glargine (Lantus) 10 units DAILY@0800 SC Last administered on 08/03/18at 09:50; Admin Dose 10 UNITS; Start 07/28/18 at 08:00 Amiodarone HCl (Cordarone) 100 mg QHS GTB Last administered on 08/02/18at 20:52; Admin Dose 100 MG; Start 07/28/18 at 22:00 Memantine (Namenda) 5 mg BID GTB Last administered on 08/03/18at 09:57; Admin Dose 5 MG; Start 07/28/18 at 22:00 Metoprolol Tartrate (Lopressor) 25 mg BID GTB Last administered on 08/03/18 09:58; Admin Dose 25 MG; Start 07/28/18 at 22:00 Saccharomyces Boulardii (Florastor) 250 mg BID GTB Last administered on 08/03/18 09:56; Admin Dose 250 MG; Start 07/28/18 at 22:00 Terazosin HCl (Hytrin) 1 mg HS GTB Last administered on 08/02/18 20:53; Admin Dose 1 MG; Start 07/28/18 at 22:00 Valproate Sodium (Depakene Liquid Cup) 250 mg QPM GTB Last administered on 08/02/18 20:49; Admin Dose 250 MG; Start 07/28/18 at 22:00 Lansoprazole (Prevacid) 30 mg DAILY@06 GTB Last administered on 08/03/18 05:41; Admin Dose 30 MG; Start 07/29/18 at 06:26 Vancomycin HCl 1.5 gm/Sodium Chloride 250 ml @ 83.333 mls/ hr Q24H IVPB Last administered on 08/03/18 11:09; Admin Dose 83.333 MLS/HR; Start 07/30/18 at 11:00 Insulin Aspart (Novolog Insulin Pen) (Adult SC Insulin - Mild Algorithm)... Q6 SC Last administered on 08/03/18 13:00; Admin Dose 1 UNIT; Start 08/01/18 at 06:00 Collagenase (Santyl) 1 applic DAILY TOP Last administered on 08/03/18 09:55; Admin Dose 1 APPLIC; Start 08/03/18 at 09:00 JAMIE WORRELL NP Aug 03, 2018 13:17
--- NOTE | 2018-08-03 13:50 | PN ---
Date/Time of Note Date/Time of Note DATE: 08/03/18 TIME: 13:49 Assessment/Plan VTE Prophylaxis Risk score (from [facility] [place])>0 risk: 8 SCD applied (from [facility] [place]): No SCD contraindicated: other Pharmacological prophylaxis: LMWH Lines/Catheters IV Catheter Type (from [facility]): Mid Line Urinary Cath still in place: Yes Reason Cath still needed: skin wounds contaminated by urine Assessment/Plan Hospital Course - Sepsis due to bilateral foot gangrene. Right foot cellulitic lesion, questionable osteomyelitis. Continue vancomycin and cefepime. Dr. Palomino is following in infection disease consultation. - Bilateral foot gangrene. Status post bilateral foot debridement on 07/31/2018. Dr. Roberts is following in podiatry consultation. 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 - Peripheral vascular disease. Status post evaluation by Dr. Horne in vascular surgery consultation, no aggressive treatment is recommended. - Possible Aspiration PNA - Paroxysmal atrial fibrillation. Regular hear rate. Continue amiodarone, aspirin, BB. Dr. Castrejon is following in cardiology consultation. - Diabetes. Continue NovoLog. - Dysphagia. Continue G-tube feeding. - Dementia with behavioral disturbances. Continue Namenda and Seroquel. - DNR status Result Diagram: 08/03/18 0533 08/03/18 0533 Results 24hrs Laboratory Tests Test 08/02/18 17:34 08/03/18 00:56 08/03/18 01:24 08/03/18 05:33 Bedside Glucose 152 152 157 White Blood Count 12.1 #H Red Blood Count 3.17 L Hemoglobin 8.5 L Hematocrit 27.6 L Mean Corpuscular 87.1 Volume Mean Corpuscular 26.8 L Hemoglobin Mean Corpuscular 30.8 L Hemoglobin Concent Red Cell 16.0 H Distribution Width Platelet Count 401 Mean Platelet Volume 11.7 H Immature 7.800 H Granulocytes % Neutrophils % Segmented 69 Neutrophils % (Manual) Band Neutrophils % 5 H (Manual) Lymphocytes % Lymphocytes % 6 L (Manual) Monocytes % Monocytes % (Manual) 9 Eosinophils % Eosinophils % 5 (Manual) Basophils % Basophils % (Manual) 2 Metamyelocytes % 2 H (manual) Myelocytes % 2 H (Manual) Nucleated Red Blood 0.0 Cells % Immature 0.940 H Granulocytes # Neutrophils # Neutrophils # 8.4 H (Manual) Band Neutrophils # 0.6 Lymphocytes (Manual) 0.7 L Lymphocytes # Monocytes # Monocytes # (Manual) 1.0 H Eosinophils # Basophils # Basophils # (Manual) 0.2 H Metamyelocytes # 0.2 H Myelocytes # 0.2 H Nucleated Red Blood Cells # Platelet Estimate NORMAL Platelet Morphology @See below Comment Polychromasia 2+ Poikilocytosis 1+ Anisocytosis 1+ Ovalocytes 1+ Sodium Level 139 Potassium Level 3.6 Chloride Level 107 Carbon Dioxide Level 30 Anion Gap 2 L Blood Urea Nitrogen 21 H Creatinine 0.45 L Est Glomerular Filtrat Rate mL/min Glucose Level 120 Calcium Level 8.1 L Test 08/03/18 05:39 08/03/18 09:45 08/03/18 12:52 Bedside Glucose 128 183 176 Subjective 24 Hr Interval Summary Free Text/Dictation Patient has no complaints Exam/Review of Systems Exam Vitals Vital Signs Date Temp Pulse Resp B/P (MAP) Pulse Ox O2 O2 Flow FiO2 Time Delivery Rate 08/03/18 98.1 86 18 124/68 94 Room Air 08:05 (86) 08/03/18 2.0 08:00 Intake and Output 08/02/18 08/02/18 08/03/18 1515:00 23:00 07:00 IntakeIntake Total 350 ml 1750 ml OutputOutput Total 1800 ml 350 ml 1000 ml BalanceBalance -1800 ml 0 ml 750 ml Constitutional: well developed Head: normocephalic, atraumatic Neck: supple Respiratory: diminished breath sounds Cardiovascular: regular rate and rhythm Gastrointestinal: soft, non-tender Extremities: normal pulses Results Results 24hrs Laboratory Tests Test 08/02/18 17:34 08/03/18 00:56 08/03/18 01:24 08/03/18 05:33 Bedside Glucose 152 152 157 White Blood Count 12.1 #H Red Blood Count 3.17 L Hemoglobin 8.5 L Hematocrit 27.6 L Mean Corpuscular 87.1 Volume Mean Corpuscular 26.8 L Hemoglobin Mean Corpuscular 30.8 L Hemoglobin Concent Red Cell 16.0 H Distribution Width Platelet Count 401 Mean Platelet Volume 11.7 H Immature 7.800 H Granulocytes % Neutrophils % Segmented 69 Neutrophils % (Manual) Band Neutrophils % 5 H (Manual) Lymphocytes % Lymphocytes % 6 L (Manual) Monocytes % Monocytes % (Manual) 9 Eosinophils % Eosinophils % 5 (Manual) Basophils % Basophils % (Manual) 2 Metamyelocytes % 2 H (manual) Myelocytes % 2 H (Manual) Nucleated Red Blood 0.0 Cells % Immature 0.940 H Granulocytes # Neutrophils # Neutrophils # 8.4 H (Manual) Band Neutrophils # 0.6 Lymphocytes (Manual) 0.7 L Lymphocytes # Monocytes # Monocytes # (Manual) 1.0 H Eosinophils # Basophils # Basophils # (Manual) 0.2 H Metamyelocytes # 0.2 H Myelocytes # 0.2 H Nucleated Red Blood Cells # Platelet Estimate NORMAL Platelet Morphology @See below Comment Polychromasia 2+ Poikilocytosis 1+ Anisocytosis 1+ Ovalocytes 1+ Sodium Level 139 Potassium Level 3.6 Chloride Level 107 Carbon Dioxide Level 30 Anion Gap 2 L Blood Urea Nitrogen 21 H Creatinine 0.45 L Est Glomerular Filtrat Rate mL/min Glucose Level 120 Calcium Level 8.1 L Test 08/03/18 05:39 08/03/18 09:45 08/03/18 12:52 Bedside Glucose 128 183 176 Medications Medication Current Medications IV Flush (NS 3 ml) 3 ml PER PROTOCOL IV ; Start 07/25/18 at 23:00 Ondansetron HCl (Zofran Inj) 4 mg Q6H PRN IV NAUSEA/VOMITING; Start 07/25/18 at 23:00 Acetaminophen (Tylenol Tab) 650 mg Q6H PRN PO .PAIN 1-3 OR TEMP Last administered on 07/31/18at 09:14; Admin Dose 650 MG; Start 07/25/18 at 23:00 Morphine Sulfate (morphine) 2 mg Q4H PRN IV .PAIN 7-10 Last administered on 08/03/18at 03:07; Admin Dose 2 MG; Start 07/25/18 at 23:00 Enoxaparin Sodium (Lovenox) 30 mg DAILY SC Last administered on 08/03/18at 09:50; Admin Dose 30 MG; Start 07/26/18 at 09:00 Cefepime HCl 50 ml @ 100 mls/hr Q8 IVPB Last administered on 08/03/18at 05:41; Admin Dose 100 MLS/HR; Start 07/26/18 at 06:00 Vancomycin HCl (Vanco Iv Per Pharmacy) VANCOMYCIN PER PHARMACY PER PROTOCOL XX ; Start 07/25/18 at 23:00 Miscellaneous Information (Pending Santyl Order For Wound Care) This patient fajardo... PRN PRN XX WOUND CARE; Start 07/26/18 at 06:00 Acetaminophen (Tylenol Tab) 650 mg Q4H PRN PO MILD PAIN LEVEL 1-3 Last administered on 07/30/18 11:54; Admin Dose 650 MG; Start 07/26/18 at 11:00 Amiodarone HCl (Cordarone) 200 mg QAM PO Last administered on 08/03/18 09:57; Admin Dose 200 MG; Start 07/26/18 at 13:00 Amlodipine Besylate (Norvasc) 5 mg DAILY PO Last administered on 08/03/18 09:57; Admin Dose 5 MG; Start 07/26/18 at 13:00 Aspirin (Halfprin) 81 mg DAILY PO Last administered on 08/03/18 10:02; Admin Dose 81 MG; Start 07/26/18 at 13:00 Bisacodyl (Dulcolax) 10 mg DAILY PRN PO CONSTIPATION; Start 07/26/18 at 11:00 Calcium/Vitamin D (Oyster Shell/ Vit-D (500/200)) 1 tab DAILY PO Last administe red on 08/03/18 09:56; Admin Dose 1 TAB; Start 07/26/18 at 13:00 Furosemide (Lasix) 10 mg DAILY PO Last administered on 08/03/18 09:59; Admin Dose 10 MG; Start 07/26/18 at 13:00 Lisinopril (Zestril) 40 mg DAILY@1400 PO Last administered on 08/02/18 15:53; Admin Dose 40 MG; Start 07/26/18 at 16:00 Magnesium Hydroxide (Milk Of Mag) 30 ml QHS PRN PO CONSTIPATION; Start 07/26/18 at 11:00 Nitroglycerin (Nitroglycerin (Sl Tab) 0.4 Mg) 1 tab Q5M PRN SL CHEST PAIN; Start 07/26/18 at 11:00 Valproate Sodium (Depakene Liquid Cup) 125 mg DAILY PO Last administered on 08/03/18 10:00; Admin Dose 125 MG; Start 07/26/18 at 13:00 Sodium Hypochlorite (Dakins Diluted ()) 1 applic DAILY TP Last administered on 08/03/18 09:54; Admin Dose 1 APPLIC; Start 07/27/18 at 09:00 Miscellaneous Information 1 ea NOTE XX ; Start 07/26/18 at 14:30 Glucose (Glutose) 15 gm Q15M PRN PO DECREASED GLUCOSE; Start 07/26/18 at 14:30 Glucose (Glutose) 22.5 gm Q15M PRN PO DECREASED GLUCOSE; Start 07/26/18 at 14: 30 Dextrose (D50w Syringe) 25 ml Q15M PRN IV DECREASED GLUCOSE; Start 07/26/18 at 14:30 Dextrose (D50w Syringe) 50 ml Q15M PRN IV DECREASED GLUCOSE; Start 07/26/18 at 14:30 Glucagon (Glucagen) 1 mg Q15M PRN IM DECREASED GLUCOSE; Start 07/26/18 at 14:30 Glucose (Glutose) 15 gm Q15M PRN BUCCAL DECREASED GLUCOSE; Start 07/26/18 at 14:30 Diagnostic Test (Pha) (Accu-Chek) 1 ea 02 XX Last administered on 07/28/18at 01:47; Admin Dose 1 EA; Start 07/27/18 at 02:00 Mupirocin (Bactroban) 1 applic BID TOP Last administered on 08/03/18 09:54; Admin Dose 1 APPLIC; Start 07/27/18 at 17:00 Quetiapine Fumarate (Seroquel) 25 mg BID GTB Last administered on 08/03/18 09:55; Admin Dose 25 MG; Start 07/28/18 at 00:00 Insulin Glargine (Lantus) 10 units DAILY@0800 SC Last administered on 08/03/18 09:50; Admin Dose 10 UNITS; Start 07/28/18 at 08:00 Amiodarone HCl (Cordarone) 100 mg QHS GTB Last administered on 08/02/18 20:52; Admin Dose 100 MG; Start 07/28/18 at 22:00 Memantine (Namenda) 5 mg BID GTB Last administered on 08/03/18 09:57; Admin Dose 5 MG; Start 07/28/18 at 22:00 Metoprolol Tartrate (Lopressor) 25 mg BID GTB Last administered on 08/03/18 09:58; Admin Dose 25 MG; Start 07/28/18 at 22:00 Saccharomyces Boulardii (Florastor) 250 mg BID GTB Last administered on 08/03/18 09:56; Admin Dose 250 MG; Start 07/28/18 at 22:00 Terazosin HCl (Hytrin) 1 mg HS GTB Last administered on 08/02/18 20:53; Admin Dose 1 MG; Start 07/28/18 at 22:00 Valproate Sodium (Depakene Liquid Cup) 250 mg QPM GTB Last administered on 08/02/18 20:49; Admin Dose 250 MG; Start 07/28/18 at 22:00 Lansoprazole (Prevacid) 30 mg DAILY@06 GTB Last administered on 08/03/18 05:41; Admin Dose 30 MG; Start 07/29/18 at 06:26 Vancomycin HCl 1.5 gm/Sodium Chloride 250 ml @ 83.333 mls/ hr Q24H IVPB Last administered on 08/03/18 11:09; Admin Dose 83.333 MLS/HR; Start 07/30/18 at 11:00 Insulin Aspart (Novolog Insulin Pen) (Adult SC Insulin - Mild Algorithm)... Q6 SC Last administered on 08/03/18 13:00; Admin Dose 1 UNIT; Start 08/01/18 at 06:00 Collagenase (Santyl) 1 applic DAILY TOP Last administered on 08/03/18 09:55; Admin Dose 1 APPLIC; Start 08/03/18 at 09:00 LORE RIVERA Aug 03, 2018 13:50
[2018-08-03] MEDS: LISINOPRIL 20 MG TAB PO SCH (14:07)
[2018-08-03 14:17] VITALS: BP 136/72; PULSE 76; RESP 16
[2018-08-03 20:00] VITALS: BP 148/65; PULSE 89; RESP 20
[2018-08-03] MEDS: VALPROIC ACID LIQUID CUP 250 MG/5 ML CUP GTB SCH (20:41)
[2018-08-03] MEDS: AMIODARONE 200 MG TAB GTB SCH (20:43)
[2018-08-03] MEDS: TERAZOSIN 1 MG CAP GTB SCH (20:44)
[2018-08-04] MEDS: INSULIN ASPART [NOVOLOG] 3 ML PEN SC SCH ×4 (01:36→17:52)
[2018-08-04] MEDS: ACCUCHECK AT 2AM (Patients on SS coverage) XX SCH (02:00)
[2018-08-04 02:19] VITALS: BP 166/76; PULSE 67; RESP 19
[2018-08-04] MEDS: CEFEPIME 2GM/50 ML (PMX) 50 ML IVPB SCH ×3 (05:39→21:31)
[2018-08-04] MEDS: LANSOPRAZOLE 30 MG CAP GTB SCH (05:39)
[2018-08-04 08:13] VITALS: BP 118/66; PULSE 76; RESP 20
[2018-08-04] MEDS: INSULIN GLARGINE [LANTus] (100 UNITS/ML) SYG SC SCH (09:19)
[2018-08-04] MEDS: ENOXAPARIN 30 MG/0.3 ML SYG SC SCH (09:19)
[2018-08-04] MEDS: COLLAGENASE 5 GM (UD JAR) TOP SCH (09:19)
[2018-08-04] MEDS: BALSAM PERU/CASTOR OIL 60 GM TUBE TOP SCH ×2 (09:20→21:24)
[2018-08-04] MEDS: DAKINS 0.0125%(1/40) 473 ML SOLUTION TP SCH (09:20)
[2018-08-04] MEDS: MUPIROCIN 2% 22 GM OINT TOP SCH ×2 (09:21→21:24)
[2018-08-04] MEDS: CALCIUM/VITAMIN D (500/200) TAB PO SCH (09:21)
[2018-08-04] MEDS: SACCHAROMYCES BOULARDII 250 MG CAP GTB SCH ×2 (09:21→21:18)
[2018-08-04] MEDS: ASPIRIN (EC) 81 MG TAB PO SCH (09:21)
[2018-08-04] MEDS: QUETIAPINE 25 MG TAB GTB SCH ×2 (09:22→21:18)
[2018-08-04] MEDS: VALPROIC ACID LIQUID CUP 250 MG/5 ML CUP PO SCH (09:22)
[2018-08-04] MEDS: FUROSEMIDE 20 MG TAB PO SCH (09:23)
[2018-08-04] MEDS: MEMANTINE 5 MG TAB GTB SCH ×2 (09:23→21:17)
[2018-08-04] MEDS: AMIODARONE 200 MG TAB PO SCH (09:23)
[2018-08-04] MEDS: AMLODIPINE 5 MG TAB PO SCH (09:23)
[2018-08-04] MEDS: METOPROLOL 25 MG TAB GTB SCH ×2 (09:23→21:18)
[2018-08-04] MEDS: VANCOMYCIN HCL 1.5 GM in SOD CHLORIDE 0.9% 250 ML IVPB SCH (10:21)
--- NOTE | 2018-08-04 13:27 | PN ---
Date/Time of Note Date/Time of Note DATE: 08/04/18 TIME: 13:26 Assessment/Plan VTE Prophylaxis Risk score (from [facility] [place] risk: 7 SCD applied (from [facility] [place] No SCD contraindicated: other Pharmacological prophylaxis: LMWH Lines/Catheters IV Catheter Type (from [facility]): Mid Line Urinary Cath still in place: Yes Reason Cath still needed: skin wounds contaminated by urine Assessment/Plan Hospital Course - Sepsis due to bilateral foot gangrene. Right foot cellulitic lesion, questionable osteomyelitis. Continue vancomycin and cefepime. Dr. Palomino is following in infection disease consultation. - Bilateral foot gangrene. Status post bilateral foot debridement on 07/31/2018. Dr. Roberts is following in podiatry consultation. 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 - Peripheral vascular disease. Status post evaluation by Dr. Horne in vascular surgery consultation, no aggressive treatment is recommended. - Possible Aspiration PNA - Paroxysmal atrial fibrillation. Regular hear rate. Continue amiodarone, aspirin, BB. Dr. Castrejon is following in cardiology consultation. - Diabetes. Continue NovoLog. - Dysphagia. Continue G-tube feeding. - Dementia with behavioral disturbances. Continue Namenda and Seroquel. - DNR status Result Diagram: 08/03/18 0533 08/03/18 0533 Results 24hrs Laboratory Tests Test 08/03/18 17:51 08/04/18 01:31 08/04/18 05:44 08/04/18 09:18 Bedside Glucose 178 145 164 184 Test 08/04/18 12:13 Bedside Glucose 184 Subjective 24 Hr Interval Summary Free Text/Dictation Patient appears comfortable, is not verbally responsive Exam/Review of Systems Exam Vitals Vital Signs Date Temp Pulse Resp B/P (MAP) Pulse Ox O2 O2 Flow FiO2 Time Delivery Rate 08/04/18 99.1 76 20 118/66 97 08:13 (83) 08/04/18 Nasal 2.0 08:00 Cannula Intake and Output 08/03/18 08/03/18 08/04/18 1414:59 22:59 06:59 IntakeIntake Total 300 ml 1130 ml 100 ml OutputOutput Total 1000 ml 500 ml 1600 ml BalanceBalance -700 ml 630 ml -1500 ml Constitutional: well developed Head: normocephalic, atraumatic Neck: supple Respiratory: diminished breath sounds Cardiovascular: regular rate and rhythm Gastrointestinal: soft, non-tender Extremities: normal pulses Results Results 24hrs Laboratory Tests Test 08/03/18 17:51 08/04/18 01:31 08/04/18 05:44 08/04/18 09:18 Bedside Glucose 178 145 164 184 Test 08/04/18 12:13 Bedside Glucose 184 Medications Medication Current Medications IV Flush (NS 3 ml) 3 ml PER PROTOCOL IV ; Start 07/25/18 at 23:00 Ondansetron HCl (Zofran Inj) 4 mg Q6H PRN IV NAUSEA/VOMITING; Start 07/25/18 at 23:00 Acetaminophen (Tylenol Tab) 650 mg Q6H PRN PO .PAIN 1-3 OR TEMP Last administered on 07/31/18at 09:14; Admin Dose 650 MG; Start 07/25/18 at 23:00 Morphine Sulfate (morphine) 2 mg Q4H PRN IV .PAIN 7-10 Last administered on 08/03/18at 20:31; Admin Dose 2 MG; Start 07/25/18 at 23:00 Enoxaparin Sodium (Lovenox) 30 mg DAILY SC Last administered on 08/04/18at 09:19; Admin Dose 30 MG; Start 07/26/18 at 09:00 Cefepime HCl 50 ml @ 100 mls/hr Q8 IVPB Last administered on 08/04/18at 05:39; Admin Dose 100 MLS/HR; Start 07/26/18 at 06:00 Vancomycin HCl (Vanco Iv Per Pharmacy) VANCOMYCIN PER PHARMACY PER PROTOCOL XX ; Start 07/25/18 at 23:00 Miscellaneous Information (Pending Santyl Order For Wound Care) This patient fajardo... PRN PRN XX WOUND CARE; Start 07/26/18 at 06:00 Acetaminophen (Tylenol Tab) 650 mg Q4H PRN PO MILD PAIN LEVEL 1-3 Last administered on 07/30/18at 11:54; Admin Dose 650 MG; Start 07/26/18 at 11:00 Amiodarone HCl (Cordarone) 200 mg QAM PO Last administered on 08/04/18at 09:23; Admin Dose 200 MG; Start 07/26/18 at 13:00 Amlodipine Besylate (Norvasc) 5 mg DAILY PO Last administered on 08/04/18 09:23; Admin Dose 5 MG; Start 07/26/18 at 13:00 Aspirin (Halfprin) 81 mg DAILY PO Last administered on 08/04/18 09:21; Admin Dose 81 MG; Start 07/26/18 at 13:00 Bisacodyl (Dulcolax) 10 mg DAILY PRN PO CONSTIPATION; Start 07/26/18 at 11:00 Calcium/Vitamin D (Oyster Shell/ Vit-D (500/200)) 1 tab DAILY PO Last administered on 08/04/18 09:21; Admin Dose 1 TAB; Start 07/26/18 at 13:00 Furosemide (Lasix) 10 mg DAILY PO Last administered on 08/04/18 09:23; Admin Dose 10 MG; Start 07/26/18 at 13:00 Lisinopril (Zestril) 40 mg DAILY@1400 PO Last administered on 08/03/18at 14:07; Admin Dose 40 MG; Start 07/26/18 at 16:00 Magnesium Hydroxide (Milk Of Mag) 30 ml QHS PRN PO CONSTIPATION; Start 07/26/18 at 11:00 Nitroglycerin (Nitroglycerin (Sl Tab) 0.4 Mg) 1 tab Q5M PRN SL CHEST PAIN; Start 07/26/18 at 11:00 Valproate Sodium (Depakene Liquid Cup) 125 mg DAILY PO Last administered on 08/04/18 09:22; Admin Dose 125 MG; Start 07/26/18 at 13:00 Sodium Hypochlorite (Dakins Diluted (1/40)) 1 applic DAILY TP Last administered on 08/04/18at 09:20; Admin Dose 1 APPLIC; Start 07/27/18 at 09:00 Miscellaneous Information 1 ea NOTE XX ; Start 07/26/18 at 14:30 Glucose (Glutose) 15 gm Q15M PRN PO DECREASED GLUCOSE; Start 07/26/18 at 14:30 Glucose (Glutose) 22.5 gm Q15M PRN PO DECREASED GLUCOSE; Start 07/26/18 at 14:30 Dextrose (D50w Syringe) 25 ml Q15M PRN IV DECREASED GLUCOSE; Start 07/26/18 at 14:30 Dextrose (D50w Syringe) 50 ml Q15M PRN IV DECREASED GLUCOSE; Start 07/26/18 at 14:30 Glucagon (Glucagen) 1 mg Q15M PRN IM DECREASED GLUCOSE; Start 07/26/18 at 14:30 Glucose (Glutose) 15 gm Q15M PRN BUCCAL DECREASED GLUCOSE; Start 07/26/18 at 14:30 Diagnostic Test (Pha) (Accu-Chek) 1 ea 02 XX Last administered on 07/28/18at 01:47; Admin Dose 1 EA; Start 07/27/18 at 02:00 Mupirocin (Bactroban) 1 applic BID TOP Last administered on 08/04/18 09:21; Admin Dose 1 APPLIC; Start 07/27/18 at 17:00 Quetiapine Fumarate (Seroquel) 25 mg BID GTB Last administered on 08/04/18 09:22; Admin Dose 25 MG; Start 07/28/18 at 00:00 Insulin Glargine (Lantus) 10 units DAILY@0800 SC Last administered on 08/04/18 09:19; Admin Dose 10 UNITS; Start 07/28/18 at 08:00 Amiodarone HCl (Cordarone) 100 mg QHS GTB Last administered on 08/03/18 20:43; Admin Dose 100 MG; Start 07/28/18 at 22:00 Memantine (Namenda) 5 mg BID GTB Last administered on 08/04/18 09:23; Admin Dose 5 MG; Start 07/28/18 at 22:00 Metoprolol Tartrate (Lopressor) 25 mg BID GTB Last administered on 08/04/18 09:23; Admin Dose 25 MG; Start 07/28/18 at 22:00 Saccharomyces Boulardii (Florastor) 250 mg BID GTB Last administered on 08/04/18 09:21; Admin Dose 250 MG; Start 07/28/18 at 22:00 Terazosin HCl (Hytrin) 1 mg HS GTB Last administered on 08/03/18 20:44; Admin Dose 1 MG; Start 07/28/18 at 22:00 Valproate Sodium (Depakene Liquid Cup) 250 mg QPM GTB Last administered on 08/03/18 20:41; Admin Dose 250 MG; Start 07/28/18 at 22:00 Lansoprazole (Prevacid) 30 mg DAILY@06 GTB Last administered on 4/21/19at 05:39; Admin Dose 30 MG; Start 07/29/18 at 06:26 Vancomycin HCl 1.5 gm/Sodium Chloride 250 ml @ 83.333 mls/ hr Q24H IVPB Last administered on 08/04/18 10:21; Admin Dose 83.333 MLS/HR; Start 07/30/18 at 11:00 Insulin Aspart (Novolog Insulin Pen) (Adult SC Insulin - Mild Algorithm)... Q6 SC Last administered on 08/04/18 12:45; Admin Dose 2 UNIT; Start 08/01/18 at 06:00 Collagenase (Santyl) 1 applic DAILY TOP Last administered on 08/04/18 09:19; Admin Dose 1 APPLIC; Start 08/03/18 at 09:00 LORE RIVERA Aug 04, 2018 13:27
[2018-08-04 14:00] VITALS: BP 129/60; PULSE 78; RESP 18
[2018-08-04] MEDS: LISINOPRIL 20 MG TAB PO SCH (15:24)
[2018-08-04] MEDS: morphine 2 MG INJ IV PRN ×2 (16:47→21:21)
--- NOTE | 2018-08-04 17:22 | CONS ---
Consultation Date/Type/Reason Admit Date/Time Jul 25, 2018 at 22:41 Initial Consult Date SUBJECTIVE: Pt is sleepy, afebrile. No acute events over night. VS: stable T: 98.7 LABS:L Reviewed. Microbiology: Blood cultures remain negative. Wound cultures growing MRSA, enterococcus, Proteus mirabilis, E. coli, Corynebacterium species Antimicrobials: Vancomycin, cefepime Physical examination: GEN: Chronically ill-appearing debilitated elderly man, in no distress. HENT: Head atraumatic normocephalic, neck is supple PULM: chest rise symmetrical, breath sounds diminished bases. Heart: S1-S2. Abdomen: soft, bowel sounds present. Extremities with bilateral lower extremities dressing intact Assessment: 1. Sepsis, present on admission 2. Bilateral foot gangrene, status post debridement 07/26/18, 07/31/18 3. Diabetes with diabetic neuropathy 4. Aspiration pneumonia 5. Dementia 6. Dysphagia status post PEG Plan: Pt is stable. On appropriate antibiotics, continue current treatment. Aspi ration precautions. Pathology report pending. Date/Time of Note DATE: 08/04/18 TIME: 17:19 Exam/Review of Systems Exam Vitals Vital Signs Date Temp Pulse Resp B/P (MAP) Pulse Ox O2 O2 Flow FiO2 Time Delivery Rate 08/04/18 98.7 78 18 129/60 97 14:00 (83) 08/04/18 Nasal 2.0 08:00 Cannula Intake and Output 08/03/18 08/03/18 08/04/18 1515:00 23:00 07:00 IntakeIntake Total 300 ml 1130 ml 100 ml OutputOutput Total 1000 ml 500 ml 1600 ml BalanceBalance -700 ml 630 ml -1500 ml Results Result Diagram: 08/03/18 0533 08/03/18 0533 Results 24hrs Laboratory Tests Test 08/03/18 17:51 08/04/18 01:31 08/04/18 05:44 08/04/18 09:18 Bedside Glucose 178 145 164 184 Test 08/04/18 12:13 Bedside Glucose 184 Medications Medication Current Medications IV Flush (NS 3 ml) 3 ml PER PROTOCOL IV ; Start 07/25/18 at 23:00 Ondansetron HCl (Zofran Inj) 4 mg Q6H PRN IV NAUSEA/VOMITING; Start 07/25/18 at 23:00 Acetaminophen (Tylenol Tab) 650 mg Q6H PRN PO .PAIN 1-3 OR TEMP Last administered on 07/31/18 09:14; Admin Dose 650 MG; Start 07/25/18 at 23:00 Morphine Sulfate (morphine) 2 mg Q4H PRN IV .PAIN 7-10 Last administered on 08/04/18 16:47; Admin Dose 2 MG; Start 07/25/18 at 23:00 Enoxaparin Sodium (Lovenox) 30 mg DAILY SC Last administered on 08/04/18 09:19; Admin Dose 30 MG; Start 07/26/18 at 09:00 Cefepime HCl 50 ml @ 100 mls/hr Q8 IVPB Last administered on 08/04/18 15:23; Admin Dose 100 MLS/HR; Start 07/26/18 at 06:00 Vancomycin HCl (Vanco Iv Per Pharmacy) VANCOMYCIN PER PHARMACY PER PROTOCOL XX ; Start 07/25/18 at 23:00 Miscellaneous Information (Pending Santyl Order For Wound Care) This patient fajardo... PRN PRN XX WOUND CARE; Start 07/26/18 at 06:00 Acetaminophen (Tylenol Tab) 650 mg Q4H PRN PO MILD PAIN LEVEL 1-3 Last ad ministered on 07/30/18at 11:54; Admin Dose 650 MG; Start 07/26/18 at 11:00 Amiodarone HCl (Cordarone) 200 mg QAM PO Last administered on 08/04/18 09:23; Admin Dose 200 MG; Start 07/26/18 at 13:00 Amlodipine Besylate (Norvasc) 5 mg DAILY PO Last administered on 08/04/18 09:23; Admin Dose 5 MG; Start 07/26/18 at 13:00 Aspirin (Halfprin) 81 mg DAILY PO Last administered on 08/04/18 09:21; Admin Dose 81 MG; Start 07/26/18 at 13:00 Bisacodyl (Dulcolax) 10 mg DAILY PRN PO CONSTIPATION; Start 07/26/18 at 11:00 Calcium/Vitamin D (Oyster Shell/ Vit-D (500/200)) 1 tab DAILY PO Last administered on 08/04/18 09:21; Admin Dose 1 TAB; Start 07/26/18 at 13:00 Furosemide (Lasix) 10 mg DAILY PO Last administered on 08/04/18at 09:23; Admin Dose 10 MG; Start 07/26/18 at 13:00 Lisinopril (Zestril) 40 mg DAILY@1400 PO Last administered on 08/04/18at 15:24; Admin Dose 40 MG; Start 07/26/18 at 16:00 Magnesium Hydroxide (Milk Of Mag) 30 ml QHS PRN PO CONSTIPATION; Start 07/26/18 at 11:00 Nitroglycerin (Nitroglycerin (Sl Tab) 0.4 Mg) 1 tab Q5M PRN SL CHEST PAIN; Start 07/26/18 at 11:00 Valproate Sodium (Depakene Liquid Cup) 125 mg DAILY PO Last administered on 08/04/18at 09:22; Admin Dose 125 MG; Start 07/26/18 at 13:00 Sodium Hypochlorite (Dakins Diluted (40)) 1 applic DAILY TP Last administered on 08/04/18at 09:20; Admin Dose 1 APPLIC; Start 07/27/18 at 09:00 Miscellaneous Information 1 ea NOTE XX ; Start 07/26/18 at 14:30 Glucose (Glutose) 15 gm Q15M PRN PO DECREASED GLUCOSE; Start 07/26/18 at 14:30 Glucose (Glutose) 22.5 gm Q15M PRN PO DECREASED GLUCOSE; Start 07/26/18 at 14:30 Dextrose (D50w Syringe) 25 ml Q15M PRN IV DECREASED GLUCOSE; Start 07/26/18 at 14:30 Dextrose (D50w Syringe) 50 ml Q15M PRN IV DECREASED GLUCOSE; Start 07/26/18 at 14:30 Glucagon (Glucagen) 1 mg Q15M PRN IM DECREASED GLUCOSE; Start 07/26/18 at 14:30 Glucose (Glutose) 15 gm Q15M PRN BUCCAL DECREASED GLUCOSE; Start 07/26/18 at 14:30 Diagnostic Test (Pha) (Accu-Chek) 1 ea 02 XX Last administered on 07/28/18at 01:47; Admin Dose 1 EA; Start 07/27/18 at 02:00 Mupirocin (Bactroban) 1 applic BID TOP Last administered on 08/04/18at 09:21; Admin Dose 1 APPLIC; Start 07/27/18 at 17:00 Quetiapine Fumarate (Seroquel) 25 mg BID GTB Last administered on 08/04/18 09:22; Admin Dose 25 MG; Start 07/28/18 at 00:00 Insulin Glargine (Lantus) 10 units DAILY@0800 SC Last administered on 08/04/18 09:19; Admin Dose 10 UNITS; Start 07/28/18 at 08:00 Amiodarone HCl (Cordarone) 100 mg QHS GTB Last administered on 08/03/18 20:43; Admin Dose 100 MG; Start 07/28/18 at 22:00 Memantine (Namenda) 5 mg BID GTB Last administered on 08/04/18 09:23; Admin Dose 5 MG; Start 07/28/18 at 22:00 Metoprolol Tartrate (Lopressor) 25 mg BID GTB Last administered on 08/04/18 09:23; Admin Dose 25 MG; Start 07/28/18 at 22:00 Saccharomyces Boulardii (Florastor) 250 mg BID GTB Last administered on 08/04/18 09:21; Admin Dose 250 MG; Start 07/28/18 at 22:00 Terazosin HCl (Hytrin) 1 mg HS GTB Last administered on 08/03/18 20:44; Admin Dose 1 MG; Start 07/28/18 at 22:00 Valproate Sodium (Depakene Liquid Cup) 250 mg QPM GTB Last administered on 08/03/18 20:41; Admin Dose 250 MG; Start 07/28/18 at 22:00 Lansoprazole (Prevacid) 30 mg DAILY@06 GTB Last administered on 08/04/18 05:39; Admin Dose 30 MG; Start 07/29/18 at 06:26 Vancomycin HCl 1.5 gm/Sodium Chloride 250 ml @ 83.333 mls/ hr Q24H IVPB Last administered on 08/04/18 10:21; Admin Dose 83.333 MLS/HR; Start 07/30/18 at 11:00 Insulin Aspart (Novolog Insulin Pen) (Adult SC Insulin - Mild Algorithm)... Q6 SC Last administered on 08/04/18 12:45; Admin Dose 2 UNIT; Start 08/01/18 at 06:00 Collagenase (Santyl) 1 applic DAILY TOP Last administered on 08/04/18at 09:19; Admin Dose 1 APPLIC; Start 08/03/18 at 09:00 RHEA BILLINGSLEY Aug 04, 2018 17:22
[2018-08-04 20:00] VITALS: BP 126/59; PULSE 93; RESP 18
[2018-08-04] MEDS: VALPROIC ACID LIQUID CUP 250 MG/5 ML CUP GTB SCH (21:17)
[2018-08-04] MEDS: TERAZOSIN 1 MG CAP GTB SCH (21:18)
[2018-08-04] MEDS: AMIODARONE 200 MG TAB GTB SCH (21:18)
[2018-08-05] MEDS: ACCUCHECK AT 2AM (Patients on SS coverage) XX SCH (00:37)
[2018-08-05] MEDS: INSULIN ASPART [NOVOLOG] 3 ML PEN SC SCH ×4 (00:37→17:53)
[2018-08-05 02:00] VITALS: BP 100/55; PULSE 73; RESP 18
[2018-08-05] MEDS: CEFEPIME 2GM/50 ML (PMX) 50 ML IVPB SCH ×3 (05:22→21:38)
[2018-08-05] MEDS: LANSOPRAZOLE 30 MG CAP GTB SCH (05:22)
[2018-08-05] MEDS: INSULIN GLARGINE [LANTus] (100 UNITS/ML) SYG SC SCH (08:28)
[2018-08-05] MEDS: ENOXAPARIN 30 MG/0.3 ML SYG SC SCH (08:29)
[2018-08-05] MEDS: BALSAM PERU/CASTOR OIL 60 GM TUBE TOP SCH ×2 (08:30→21:39)
[2018-08-05] MEDS: COLLAGENASE 5 GM (UD JAR) TOP SCH (08:30)
[2018-08-05] MEDS: MUPIROCIN 2% 22 GM OINT TOP SCH ×2 (08:30→21:39)
[2018-08-05] MEDS: VALPROIC ACID LIQUID CUP 250 MG/5 ML CUP PO SCH (08:31)
[2018-08-05] MEDS: DAKINS 0.0125%(1/40) 473 ML SOLUTION TP SCH (08:31)
[2018-08-05] MEDS: FUROSEMIDE 20 MG TAB PO SCH (08:33)
[2018-08-05] MEDS: CALCIUM/VITAMIN D (500/200) TAB PO SCH (08:34)
[2018-08-05] MEDS: MEMANTINE 5 MG TAB GTB SCH ×2 (08:34→21:35)
[2018-08-05] MEDS: QUETIAPINE 25 MG TAB GTB SCH ×2 (08:34→21:34)
[2018-08-05] MEDS: SACCHAROMYCES BOULARDII 250 MG CAP GTB SCH ×2 (08:34→21:35)
[2018-08-05] MEDS: AMLODIPINE 5 MG TAB PO SCH (08:35)
[2018-08-05] MEDS: METOPROLOL 25 MG TAB GTB SCH ×2 (08:35→21:00)
[2018-08-05] MEDS: AMIODARONE 200 MG TAB PO SCH (08:35)
[2018-08-05] MEDS: ASPIRIN (EC) 81 MG TAB PO SCH (08:35)
[2018-08-05 08:55] VITALS: BP 111/59; PULSE 73; RESP 18
[2018-08-05] MEDS: VANCOMYCIN HCL 1.5 GM in SOD CHLORIDE 0.9% 250 ML IVPB SCH (12:42)
[2018-08-05] MEDS: morphine 2 MG INJ IV PRN ×2 (14:09→22:40)
[2018-08-05] MEDS: LISINOPRIL 20 MG TAB PO SCH (14:09)
--- NOTE | 2018-08-05 14:11 | PN ---
Date/Time of Note Date/Time of Note DATE: 08/05/18 TIME: 14:10 Assessment/Plan VTE Prophylaxis Risk score (from [facility] [place])>0 risk: 7 SCD applied (from [facility] [place]): No SCD contraindicated: other Pharmacological prophylaxis: LMWH Lines/Catheters IV Catheter Type (from [facility]): Mid Line Urinary Cath still in place: Yes Reason Cath still needed: skin wounds contaminated by urine Assessment/Plan Hospital Course - Sepsis due to bilateral foot gangrene. Right foot cellulitic lesion, questionable osteomyelitis. Continue vancomycin and cefepime. Dr. Palomino is following in infection disease consultation. - Bilateral foot gangrene. Status post bilateral foot debridement on 07/31/2018. Dr. Roberts is following in podiatry consultation. 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 - Peripheral vascular disease. Status post evaluation by Dr. Horne in vascular surgery consultation, no aggressive treatment is recommended. - Possible Aspiration PNA - Paroxysmal atrial fibrillation. Regular hear rate. Continue amiodarone, aspirin, BB. Dr. Catsrejon is following in cardiology consultation. - Diabetes. Continue NovoLog. - Dysphagia. Continue G-tube feeding. - Dementia with behavioral disturbances. Continue Namenda and Seroquel. - DNR status Result Diagram: 08/03/18 0533 08/03/18 0533 Results 24hrs Laboratory Tests Test 08/04/18 17:51 08/05/18 00:36 08/05/18 05:20 08/05/18 08:27 Bedside Glucose 145 141 160 168 Test 08/05/18 12:42 Bedside Glucose 162 Subjective 24 Hr Interval Summary Free Text/Dictation Patient is comfortable, not verbally responsive Exam/Review of Systems Exam Vitals Vital Signs Date Temp Pulse Resp B/P (MAP) Pulse Ox O2 O2 Flow FiO2 Time Delivery Rate 08/05/18 99.5 73 18 111/59 18 Room Air 08:55 (76) 08/05/18 2.0 08:00 Intake and Output 08/04/18 08/04/18 08/05/18 1515:00 23:00 07:00 IntakeIntake Total 250 ml 100 ml 1130 ml OutputOutput Total 1300 ml 800 ml BalanceBalance 250 ml -1200 ml 330 ml Constitutional: well developed Head: normocephalic, atraumatic Neck: supple Respiratory: diminished breath sounds Cardiovascular: regular rate and rhythm Gastrointestinal: soft, non-tender Extremities: normal pulses Results Results 24hrs Laboratory Tests Test 08/04/18 17:51 08/05/18 00:36 08/05/18 05:20 08/05/18 08:27 Bedside Glucose 145 141 160 168 Test 08/05/18 12:42 Bedside Glucose 162 Medications Medication Current Medications IV Flush (NS 3 ml) 3 ml PER PROTOCOL IV ; Start 07/25/18 at 23:00 Ondansetron HCl (Zofran Inj) 4 mg Q6H PRN IV NAUSEA/VOMITING; Start 07/25/18 at 23:00 Acetaminophen (Tylenol Tab) 650 mg Q6H PRN PO .PAIN 1-3 OR TEMP Last ad ministered on 07/31/18at 09:14; Admin Dose 650 MG; Start 07/25/18 at 23:00 Morphine Sulfate (morphine) 2 mg Q4H PRN IV .PAIN 7-10 Last administered on 08/05/18at 14:09; Admin Dose 2 MG; Start 07/25/18 at 23:00 Enoxaparin Sodium (Lovenox) 30 mg DAILY SC Last administered on 08/05/18at 08:29; Admin Dose 30 MG; Start 07/26/18 at 09:00 Cefepime HCl 50 ml @ 100 mls/hr Q8 IVPB Last administered on 08/05/18at 14:08; Admin Dose 100 MLS/HR; Start 07/26/18 at 06:00 Vancomycin HCl (Vanco Iv Per Pharmacy) VANCOMYCIN PER PHARMACY PER PROTOCOL XX ; Start 07/25/18 at 23:00 Miscellaneous Information (Pending Santyl Order For Wound Care) This patient fajardo... PRN PRN XX WOUND CARE; Start 07/26/18 at 06:00 Acetaminophen (Tylenol Tab) 650 mg Q4H PRN PO MILD PAIN LEVEL 1-3 Last administered on 07/30/18at 11:54; Admin Dose 650 MG; Start 07/26/18 at 11:00 Amiodarone HCl (Cordarone) 200 mg QAM PO Last administered on 08/05/18at 08:35; Admin Dose 200 MG; Start 07/26/18 at 13:00 Amlodipine Besylate (Norvasc) 5 mg DAILY PO Last administered on 08/05/18 08:35; Admin Dose 5 MG; Start 07/26/18 at 13:00 Aspirin (Halfprin) 81 mg DAILY PO Last administered on 08/05/18 08:35; Admin Dose 81 MG; Start 07/26/18 at 13:00 Bisacodyl (Dulcolax) 10 mg DAILY PRN PO CONSTIPATION; Start 07/26/18 at 11:00 Calcium/Vitamin D (Oyster Shell/ Vit-D (500/200)) 1 tab DAILY PO Last administered on 08/05/18 08:34; Admin Dose 1 TAB; Start 07/26/18 at 13:00 Furosemide (Lasix) 10 mg DAILY PO Last administered on 08/05/18 08:33; Admin Dose 10 MG; Start 07/26/18 at 13:00 Lisinopril (Zestril) 40 mg DAILY@1400 PO Last administered on 08/05/18 14:09; Admin Dose 40 MG; Start 07/26/18 at 16:00 Magnesium Hydroxide (Milk Of Mag) 30 ml QHS PRN PO CONSTIPATION; Start 07/26/18 at 11:00 Nitroglycerin (Nitroglycerin (Sl Tab) 0.4 Mg) 1 tab Q5M PRN SL CHEST PAIN; Start 07/26/18 at 11:00 Valproate Sodium (Depakene Liquid Cup) 125 mg DAILY PO Last administered on 08/05/18 08:31; Admin Dose 125 MG; Start 07/26/18 at 13:00 Sodium Hypochlorite (Dakins Diluted (40)) 1 applic DAILY TP Last administered on 08/05/18 08:31; Admin Dose 1 APPLIC; Start 07/27/18 at 09:00 Miscellaneous Information 1 ea NOTE XX ; Start 07/26/18 at 14:30 Glucose (Glutose) 15 gm Q15M PRN PO DECREASED GLUCOSE; Start 07/26/18 at 14:30 Glucose (Glutose) 22.5 gm Q15M PRN PO DECREASED GLUCOSE; Start 07/26/18 at 14:30 Dextrose (D50w Syringe) 25 ml Q15M PRN IV DECREASED GLUCOSE; Start 07/26/18 at 14:30 Dextrose (D50w Syringe) 50 ml Q15M PRN IV DECREASED GLUCOSE; Start 07/26/18 at 14:30 Glucagon (Glucagen) 1 mg Q15M PRN IM DECREASED GLUCOSE; Start 07/26/18 at 14:30 Glucose (Glutose) 15 gm Q15M PRN BUCCAL DECREASED GLUCOSE; Start 07/26/18 at 1 4:30 Diagnostic Test (Pha) (Accu-Chek) 1 ea 02 XX Last administered on 07/28/18at 01:47; Admin Dose 1 EA; Start 07/27/18 at 02:00 Mupirocin (Bactroban) 1 applic BID TOP Last administered on 08/05/18 08:30; Admin Dose 1 APPLIC; Start 07/27/18 at 17:00 Quetiapine Fumarate (Seroquel) 25 mg BID GTB Last administered on 08/05/18 08:34; Admin Dose 25 MG; Start 07/28/18 at 00:00 Insulin Glargine (Lantus) 10 units DAILY@0800 SC Last administered on 08/05/18 08:28; Admin Dose 10 UNITS; Start 07/28/18 at 08:00 Amiodarone HCl (Cordarone) 100 mg QHS GTB Last administered on 08/04/18 21:18; Admin Dose 100 MG; Start 07/28/18 at 22:00 Memantine (Namenda) 5 mg BID GTB Last administered on 08/05/18 08:34; Admin Dose 5 MG; Start 07/28/18 at 22:00 Metoprolol Tartrate (Lopressor) 25 mg BID GTB Last administered on 08/05/18 08:35; Admin Dose 25 MG; Start 07/28/18 at 22:00 Saccharomyces Boulardii (Florastor) 250 mg BID GTB Last administered on 08/05/18 08:34; Admin Dose 250 MG; Start 07/28/18 at 22:00 Terazosin HCl (Hytrin) 1 mg HS GTB Last administered on 08/04/18 21:18; Admin Dose 1 MG; Start 07/28/18 at 22:00 Valproate Sodium (Depakene Liquid Cup) 250 mg QPM GTB Last administered on 08/04/18 21:17; Admin Dose 250 MG; Start 07/28/18 at 22:00 Lansoprazole (Prevacid) 30 mg DAILY@06 GTB Last administered on 08/05/18 05:22; Admin Dose 30 MG; Start 07/29/18 at 06:26 Vancomycin HCl 1.5 gm/Sodium Chloride 250 ml @ 83.333 mls/ hr Q24H IVPB Last administered on 08/05/18 12:42; Admin Dose 83.333 MLS/HR; Start 07/30/18 at 11:00 Insulin Aspart (Novolog Insulin Pen) (Adult SC Insulin - Mild Algorithm)... Q6 SC Last administered on 08/05/18 12:43; Admin Dose 1 UNIT; Start 08/01/18 at 06:00 Collagenase (Santyl) 1 applic DAILY TOP Last administered on 08/05/18 08:30; Admin Dose 1 APPLIC; Start 08/03/18 at 09:00 LORE RIVERA Aug 05, 2018 14:11
--- NOTE | 2018-08-05 14:52 | CONS ---
Assessment/Plan Assessment/Plan Hospital Course (Demo Recall) No acute changes, looks comfortable, no fevers Microbiology: Blood cultures remain negative. Wound cultures growing MRSA, enterococcus, Proteus mirabilis, E. coli, Corynebacterium species Antimicrobials: Vancomycin, cefepime Physical examination: Chronically ill-appearing debilitated elderly man in no distress. Head atraumatic normocephalic neck is supple chest rise symmetrical breath sounds diminished bases. Heart: S1-S2. Abdomen soft bowel sounds present. Extremities with bilateral lower extremities dressing intact Assessment: 1. Sepsis, present on admission 2. Bilateral foot gangrene, status post debridement 07/26/18, 07/31/18===> + acute OM per patho 3. Diabetes with diabetic neuropathy 4. Aspiration pneumonia 5. Dementia 6. Dysphagia status post PEG Plan: Remains unchanged, continue on current abx for 6+ weeks Consultation Date/Type/Reason Admit Date/Time Jul 25, 2018 at 22:41 Initial Consult Date 07/26/18 Type of Consult id Date/Time of Note DATE: 08/05/18 TIME: 14:51 Exam/Review of Systems Exam Vitals Vital Signs Date Temp Pulse Resp B/P (MAP) Pulse Ox O2 O2 Flow FiO2 Time Delivery Rate 08/05/18 99.5 73 18 111/59 18 Room Air 08:55 (76) 08/05/18 2.0 08:00 Intake and Output 08/04/18 08/04/18 08/05/18 1515:00 23:00 07:00 IntakeIntake Total 250 ml 100 ml 1130 ml OutputOutput Total 1300 ml 800 ml BalanceBalance 250 ml -1200 ml 330 ml Results Result Diagram: 08/03/18 0533 08/03/18 0533 Results 24hrs Laboratory Tests Test 08/04/18 17:51 08/05/18 00:36 08/05/18 05:20 08/05/18 08:27 Bedside Glucose 145 141 160 168 Test 08/05/18 12:42 Bedside Glucose 162 Medications Medication Current Medications IV Flush (NS 3 ml) 3 ml PER PROTOCOL IV ; Start 07/25/18 at 23:00 Ondansetron HCl (Zofran Inj) 4 mg Q6H PRN IV NAUSEA/VOMITING; Start 07/25/18 at 23:00 Acetaminophen (Tylenol Tab) 650 mg Q6H PRN PO .PAIN 1-3 OR TEMP Last administered on 07/31/18 09:14; Admin Dose 650 MG; Start 07/25/18 at 23:00 Morphine Sulfate (morphine) 2 mg Q4H PRN IV .PAIN 7-10 Last administered on 08/05/18 14:09; Admin Dose 2 MG; Start 07/25/18 at 23:00 Enoxaparin Sodium (Lovenox) 30 mg DAILY SC Last administered on 08/05/18 08:29; Admin Dose 30 MG; Start 07/26/18 at 09:00 Cefepime HCl 50 ml @ 100 mls/hr Q8 IVPB Last administered on 08/05/18 14:08; Admin Dose 100 MLS/HR; Start 07/26/18 at 06:00 Vancomycin HCl (Vanco Iv Per Pharmacy) VANCOMYCIN PER PHARMACY PER PROTOCOL XX ; Start 07/25/18 at 23:00 Miscellaneous Information (Pending Santyl Order For Wound Care) This patient fajardo... PRN PRN XX WOUND CARE; Start 07/26/18 at 06:00 Acetaminophen (Tylenol Tab) 650 mg Q4H PRN PO MILD PAIN LEVEL 1-3 Last a dministered on 07/30/18at 11:54; Admin Dose 650 MG; Start 07/26/18 at 11:00 Amiodarone HCl (Cordarone) 200 mg QAM PO Last administered on 08/05/18 08:35; Admin Dose 200 MG; Start 07/26/18 at 13:00 Amlodipine Besylate (Norvasc) 5 mg DAILY PO Last administered on 08/05/18 08:35; Admin Dose 5 MG; Start 07/26/18 at 13:00 Aspirin (Halfprin) 81 mg DAILY PO Last administered on 08/05/18 08:35; Admin Dose 81 MG; Start 07/26/18 at 13:00 Bisacodyl (Dulcolax) 10 mg DAILY PRN PO CONSTIPATION; Start 07/26/18 at 11:00 Calcium/Vitamin D (Oyster Shell/ Vit-D (500/200)) 1 tab DAILY PO Last administered on 08/05/18 08:34; Admin Dose 1 TAB; Start 07/26/18 at 13:00 Furosemide (Lasix) 10 mg DAILY PO Last administered on 4/22/19at 08:33; Admin Dose 10 MG; Start 07/26/18 at 13:00 Lisinopril (Zestril) 40 mg DAILY@1400 PO Last administered on 08/05/18at 14:09; Admin Dose 40 MG; Start 07/26/18 at 16:00 Magnesium Hydroxide (Milk Of Mag) 30 ml QHS PRN PO CONSTIPATION; Start 07/26/18 at 11:00 Nitroglycerin (Nitroglycerin (Sl Tab) 0.4 Mg) 1 tab Q5M PRN SL CHEST PAIN; Start 07/26/18 at 11:00 Valproate Sodium (Depakene Liquid Cup) 125 mg DAILY PO Last administered on 08/05/18 08:31; Admin Dose 125 MG; Start 07/26/18 at 13:00 Sodium Hypochlorite (Dakins Diluted ()) 1 applic DAILY TP Last administered on 08/05/18 08:31; Admin Dose 1 APPLIC; Start 07/27/18 at 09:00 Miscellaneous Information 1 ea NOTE XX ; Start 07/26/18 at 14:30 Glucose (Glutose) 15 gm Q15M PRN PO DECREASED GLUCOSE; Start 07/26/18 at 14:30 Glucose (Glutose) 22.5 gm Q15M PRN PO DECREASED GLUCOSE; Start 07/26/18 at 14:30 Dextrose (D50w Syringe) 25 ml Q15M PRN IV DECREASED GLUCOSE; Start 07/26/18 at 14:30 Dextrose (D50w Syringe) 50 ml Q15M PRN IV DECREASED GLUCOSE; Start 07/26/18 at 14:30 Glucagon (Glucagen) 1 mg Q15M PRN IM DECREASED GLUCOSE; Start 07/26/18 at 14:30 Glucose (Glutose) 15 gm Q15M PRN BUCCAL DECREASED GLUCOSE; Start 07/26/18 at 14:30 Diagnostic Test (Pha) (Accu-Chek) 1 ea 02 XX Last administered on 07/28/18at 01:47; Admin Dose 1 EA; Start 07/27/18 at 02:00 Mupirocin (Bactroban) 1 applic BID TOP Last administered on 08/05/18at 08:30; Admin Dose 1 APPLIC; Start 07/27/18 at 17:00 Quetiapine Fumarate (Seroquel) 25 mg BID GTB Last administered on 08/05/18 08:34; Admin Dose 25 MG; Start 07/28/18 at 00:00 Insulin Glargine (Lantus) 10 units DAILY@0800 SC Last administered on 08/05/18 08:28; Admin Dose 10 UNITS; Start 07/28/18 at 08:00 Amiodarone HCl (Cordarone) 100 mg QHS GTB Last administered on 08/04/18 21:18; Admin Dose 100 MG; Start 07/28/18 at 22:00 Memantine (Namenda) 5 mg BID GTB Last administered on 08/05/18 08:34; Admin Dose 5 MG; Start 07/28/18 at 22:00 Metoprolol Tartrate (Lopressor) 25 mg BID GTB Last administered on 08/05/18 08:35; Admin Dose 25 MG; Start 07/28/18 at 22:00 Saccharomyces Boulardii (Florastor) 250 mg BID GTB Last administered on 08/05/18 08:34; Admin Dose 250 MG; Start 07/28/18 at 22:00 Terazosin HCl (Hytrin) 1 mg HS GTB Last administered on 08/04/18 21:18; Admin Dose 1 MG; Start 07/28/18 at 22:00 Valproate Sodium (Depakene Liquid Cup) 250 mg QPM GTB Last administered on 08/04/18 21:17; Admin Dose 250 MG; Start 07/28/18 at 22:00 Lansoprazole (Prevacid) 30 mg DAILY@06 GTB Last administered on 08/05/18 05:22; Admin Dose 30 MG; Start 07/29/18 at 06:26 Vancomycin HCl 1.5 gm/Sodium Chloride 250 ml @ 83.333 mls/ hr Q24H IVPB Last administered on 08/05/18 12:42; Admin Dose 83.333 MLS/HR; Start 07/30/18 at 11:00 Insulin Aspart (Novolog Insulin Pen) (Adult SC Insulin - Mild Algorithm)... Q6 SC Last administered on 08/05/18 12:43; Admin Dose 1 UNIT; Start 08/01/18 at 06:00 Collagenase (Santyl) 1 applic DAILY TOP Last administered on 08/05/18 08:30; Admin Dose 1 APPLIC; Start 08/03/18 at 09:00 JAMIE WORRELL NP Aug 05, 2018 14:52
[2018-08-05 15:28] VITALS: BP 106/59; PULSE 71; RESP 18
[2018-08-05 20:00] VITALS: BP 94/53; PULSE 73; RESP 18
[2018-08-05] MEDS: AMIODARONE 200 MG TAB GTB SCH (21:34)
[2018-08-05] MEDS: TERAZOSIN 1 MG CAP GTB SCH (21:34)
[2018-08-05] MEDS: VALPROIC ACID LIQUID CUP 250 MG/5 ML CUP GTB SCH (21:35)
[2018-08-05 22:42] VITALS: BP 116/58
[2018-08-06] MEDS: INSULIN ASPART [NOVOLOG] 3 ML PEN SC SCH ×4 (00:24→17:29)
[2018-08-06 02:00] VITALS: BP 105/56; PULSE 71; RESP 18
[2018-08-06] MEDS: ACCUCHECK AT 2AM (Patients on SS coverage) XX SCH (02:00)
[2018-08-06] MEDS: morphine 2 MG INJ IV PRN ×2 (02:59→15:32)
[2018-08-06] MEDS: CEFEPIME 2GM/50 ML (PMX) 50 ML IVPB SCH ×2 (05:00→15:31)
[2018-08-06] MEDS: LANSOPRAZOLE 30 MG CAP GTB SCH (05:00)
[2018-08-06 08:00] VITALS: BP 108/54; PULSE 85; RESP 18
[2018-08-06] MEDS: INSULIN GLARGINE [LANTus] (100 UNITS/ML) SYG SC SCH (08:23)
[2018-08-06] MEDS: ENOXAPARIN 30 MG/0.3 ML SYG SC SCH (08:23)
[2018-08-06] MEDS: VALPROIC ACID LIQUID CUP 250 MG/5 ML CUP PO SCH (08:24)
[2018-08-06] MEDS: FUROSEMIDE 20 MG TAB PO SCH (08:24)
[2018-08-06] MEDS: CALCIUM/VITAMIN D (500/200) TAB PO SCH (08:24)
[2018-08-06] MEDS: SACCHAROMYCES BOULARDII 250 MG CAP GTB SCH (08:25)
[2018-08-06] MEDS: ASPIRIN (EC) 81 MG TAB PO SCH (08:25)
[2018-08-06] MEDS: MEMANTINE 5 MG TAB GTB SCH (08:25)
[2018-08-06] MEDS: METOPROLOL 25 MG TAB GTB SCH (08:25)
[2018-08-06] MEDS: QUETIAPINE 25 MG TAB GTB SCH (08:25)
[2018-08-06] MEDS: AMLODIPINE 5 MG TAB PO SCH (08:26)
[2018-08-06] MEDS: AMIODARONE 200 MG TAB PO SCH (08:26)
[2018-08-06] MEDS: DAKINS 0.0125%(1/40) 473 ML SOLUTION TP SCH (08:27)
[2018-08-06] MEDS: BALSAM PERU/CASTOR OIL 60 GM TUBE TOP SCH (08:27)
[2018-08-06] MEDS: MUPIROCIN 2% 22 GM OINT TOP SCH (08:27)
[2018-08-06] MEDS: COLLAGENASE 5 GM (UD JAR) TOP SCH (08:39)
--- NOTE | 2018-08-06 12:33 | CONS ---
Assessment/Plan Assessment/Plan Hospital Course (Demo Recall) No acute changes per report, no fevers Microbiology: Blood cultures remain negative. Wound cultures growing MRSA, enterococcus, Proteus mirabilis, E. coli, Corynebacterium species Antimicrobials: Vancomycin, cefepime Physical examination: Chronically ill-appearing debilitated elderly man in no distress. Head atraumatic normocephalic neck is supple chest rise symmetrical breath sounds diminished bases. Heart: S1-S2. Abdomen soft bowel sounds present. Extremities with bilateral lower extremities dressing intact Assessment: 1. Sepsis, present on admission 2. Bilateral foot gangrene, status post debridement 07/26/18, 07/31/18===> + acute OM per patho 3. Diabetes with diabetic neuropathy 4. Aspiration pneumonia 5. Dementia 6. Dysphagia status post PEG Plan: Remains unchanged, continue on current abx for 6+ weeks, wound care per podiatry rec-s Consultation Date/Type/Reason Admit Date/Time Jul 25, 2018 at 22:41 Initial Consult Date 07/26/18 Type of Consult id Date/Time of Note DATE: 08/06/18 TIME: 12:32 Exam/Review of Systems Exam Vitals Vital Signs Date Temp Pulse Resp B/P (MAP) Pulse Ox O2 O2 Flow FiO2 Time Delivery Rate 08/06/18 Nasal 2.0 09:07 Cannula 08/06/18 99.0 85 18 108/54 93 08:00 (72) Intake and Output 08/05/18 08/05/18 08/06/18 1515:00 23:00 07:00 IntakeIntake Total 50 ml 300 ml 1130 ml OutputOutput Total 1400 ml 850 ml BalanceBalance 50 ml -1100 ml 280 ml Results Result Diagram: 08/03/18 0533 08/06/18 0559 Results 24hrs Laboratory Tests Test 08/05/18 12:42 08/05/18 17:52 08/06/18 00:22 08/06/18 05:01 Bedside Glucose 162 121 174 167 Test 08/06/18 05:59 08/06/18 08:21 08/06/18 12:01 Blood Urea Nitrogen 25 H Creatinine 0.51 L Bedside Glucose 181 163 Medications Medication Current Medications IV Flush (NS 3 ml) 3 ml PER PROTOCOL IV ; Start 07/25/18 at 23:00 Ondansetron HCl (Zofran Inj) 4 mg Q6H PRN IV NAUSEA/VOMITING; Start 07/25/18 at 23:00 Acetaminophen (Tylenol Tab) 650 mg Q6H PRN PO .PAIN 1-3 OR TEMP Last administered on 07/31/18 09:14; Admin Dose 650 MG; Start 07/25/18 at 23:00 Morphine Sulfate (morphine) 2 mg Q4H PRN IV .PAIN 7-10 Last administered on 08/06/18 02:59; Admin Dose 2 MG; Start 07/25/18 at 23:00 Enoxaparin Sodium (Lovenox) 30 mg DAILY SC Last administered on 08/06/18 08:23; Admin Dose 30 MG; Start 07/26/18 at 09:00 Cefepime HCl 50 ml @ 100 mls/hr Q8 IVPB Last administered on 08/06/18 05:00; Admin Dose 100 MLS/HR; Start 07/26/18 at 06:00 Vancomycin HCl (Vanco Iv Per Pharmacy) VANCOMYCIN PER PHARMACY PER PROTOCOL XX ; Start 07/25/18 at 23:00 Miscellaneous Information (Pending Santyl Order For Wound Care) This patient fajardo... PRN PRN XX WOUND CARE; Start 07/26/18 at 06:00 Acetaminophen (Tylenol Tab) 650 mg Q4H PRN PO MILD PAIN LEVEL 1-3 Last administered on 07/30/18 11:54; Admin Dose 650 MG; Start 07/26/18 at 11:00 Amiodarone HCl (Cordarone) 200 mg QAM PO Last administered on 08/06/18 08:26; Admin Dose 200 MG; Start 07/26/18 at 13:00 Amlodipine Besylate (Norvasc) 5 mg DAILY PO Last administered on 08/06/18 08:26; Admin Dose 5 MG; Start 07/26/18 at 13:00 Aspirin (Halfprin) 81 mg DAILY PO Last administered on 08/06/18 08:25; Admin Dose 81 MG; Start 07/26/18 at 13:00 Bisacodyl (Dulcolax) 10 mg DAILY PRN PO CONSTIPATION; Start 07/26/18 at 11:00 Calcium/Vitamin D (Oyster Shell/ Vit-D (500/200)) 1 tab DAILY PO Last adm inistered on 08/06/18 08:24; Admin Dose 1 TAB; Start 07/26/18 at 13:00 Furosemide (Lasix) 10 mg DAILY PO Last administered on 08/06/18 08:24; Admin Dose 10 MG; Start 07/26/18 at 13:00 Lisinopril (Zestril) 40 mg DAILY@1400 PO Last administered on 08/05/18 14:09; Admin Dose 40 MG; Start 07/26/18 at 16:00 Magnesium Hydroxide (Milk Of Mag) 30 ml QHS PRN PO CONSTIPATION; Start 07/26/18 at 11:00 Nitroglycerin (Nitroglycerin (Sl Tab) 0.4 Mg) 1 tab Q5M PRN SL CHEST PAIN; Start 07/26/18 at 11:00 Valproate Sodium (Depakene Liquid Cup) 125 mg DAILY PO Last administered on 08/06/18 08:24; Admin Dose 125 MG; Start 07/26/18 at 13:00 Sodium Hypochlorite (Dakins Diluted ()) 1 applic DAILY TP Last administered on 08/06/18 08:27; Admin Dose 1 APPLIC; Start 07/27/18 at 09:00 Miscellaneous Information 1 ea NOTE XX ; Start 07/26/18 at 14:30 Glucose (Glutose) 15 gm Q15M PRN PO DECREASED GLUCOSE; Start 07/26/18 at 14:30 Glucose (Glutose) 22.5 gm Q15M PRN PO DECREASED GLUCOSE; Start 07/26/18 at 14:30 Dextrose (D50w Syringe) 25 ml Q15M PRN IV DECREASED GLUCOSE; Start 07/26/18 at 14:30 Dextrose (D50w Syringe) 50 ml Q15M PRN IV DECREASED GLUCOSE; Start 07/26/18 at 14:30 Glucagon (Glucagen) 1 mg Q15M PRN IM DECREASED GLUCOSE; Start 07/26/18 at 14:30 Glucose (Glutose) 15 gm Q15M PRN BUCCAL DECREASED GLUCOSE; Start 07/26/18 at 14:30 Diagnostic Test (Pha) (Accu-Chek) 1 ea 02 XX Last administered on 07/28/18at 01:47; Admin Dose 1 EA; Start 07/27/18 at 02:00 Mupirocin (Bactroban) 1 applic BID TOP Last administered on 08/06/18 08:27; Admin Dose 1 APPLIC; Start 07/27/18 at 17:00 Quetiapine Fumarate (Seroquel) 25 mg BID GTB Last administered on 08/06/18 08:25; Admin Dose 25 MG; Start 07/28/18 at 00:00 Insulin Glargine (Lantus) 10 units DAILY@0800 SC Last administered on 08/06/18 08:23; Admin Dose 10 UNITS; Start 07/28/18 at 08:00 Amiodarone HCl (Cordarone) 100 mg QHS GTB Last administered on 08/05/18 21:34; Admin Dose 100 MG; Start 07/28/18 at 22:00 Memantine (Namenda) 5 mg BID GTB Last administered on 08/06/18 08:25; Admin Dose 5 MG; Start 07/28/18 at 22:00 Metoprolol Tartrate (Lopressor) 25 mg BID GTB Last administered on 08/05/18 08:35; Admin Dose 25 MG; Start 07/28/18 at 22:00 Saccharomyces Boulardii (Florastor) 250 mg BID GTB Last administered on 08/06/18 08:25; Admin Dose 250 MG; Start 07/28/18 at 22:00 Terazosin HCl (Hytrin) 1 mg HS GTB Last administered on 08/05/18 21:34; Admin Dose 1 MG; Start 07/28/18 at 22:00 Valproate Sodium (Depakene Liquid Cup) 250 mg QPM GTB Last administered on 08/05/18 21:35; Admin Dose 250 MG; Start 07/28/18 at 22:00 Lansoprazole (Prevacid) 30 mg DAILY@06 GTB Last administered on 08/06/18 05:00; Admin Dose 30 MG; Start 07/29/18 at 06:26 Insulin Aspart (Novolog Insulin Pen) (Adult SC Insulin - Mild Algorithm)... Q6 SC Last administered on 08/06/18 12:03; Admin Dose 1 UNIT; Start 08/01/18 at 06:00 Collagenase (Santyl) 1 applic DAILY TOP Last administered on 08/06/18 08:39; Admin Dose 1 APPLIC; Start 08/03/18 at 09:00 Vancomycin HCl 1.5 gm/Sodium Chloride 250 ml @ 83.333 mls/ hr Q24H IVPB ; Start 08/06/18 at 13:00 Miscellaneous Information (*Rx Drug Level Order Reminder*) 1 1200 ONCE XX ; Start 08/07/18 at 12:00; Stop 08/07/18 at 12:01 JAMIE WORRELL NP Aug 06, 2018 12:33
[2018-08-06] MEDS ORDERED: VANCOMYCIN HCL 1.5 GM in SOD CHLORIDE 0.9% 250 ML IVPB SCH (13:00)
[2018-08-06 14:00] VITALS: BP 119/61; PULSE 81; RESP 19
[2018-08-06] MEDS: LISINOPRIL 20 MG TAB PO SCH (14:12)
--- NOTE | 2018-08-06 16:38 | DS ---
Date/Time of Note Date/Time of Note DATE: 08/06/18 TIME: 16:38 Discharge Summary Admission/Discharge Info Admit Date/Time Jul 25, 2018 at 22:41 Discharge Date/Time Patient Condition: Stable Home Meds Reported Medications Calcium Carbonate/Vitamin D3 (OYSTER SHELL 500 MG + VIT D TB) 1 Each Tablet, 1 EACH PO Q5PM, TAB 04/13/18 Memantine* (Namenda*) 5 Mg Tablet, 5 MG PO BID, #60 TAB 04/13/18 Furosemide* (Furosemide*) 20 Mg Tablet, 10 MG PO Q9AM, #60 TAB 04/13/18 Terazosin Hcl* (Hytrin*) 1 Mg Cap, 1 MG PO HS, CAP 04/13/18 Saccharomyces Boulardii* (Florastor*) 250 Mg Cap, 250 MG PO BID, CAP 04/13/18 Cranberry Extract (Cranberry) 425 Mg Capsule, 425 MG PO Q9AM, CAP 04/13/18 Aspirin* (Aspirin* EC) 81 Mg Tablet.dr, 81 MG PO DAILY, TAB 04/13/18 Amiodarone Hcl* (Amiodarone Hcl*) 200 Mg Tablet, 200 MG PO QAM, #30 TAB HOLD IF HR<60 04/13/18 Lisinopril* (Lisinopril*) 40 Mg Tablet, 40 MG PO DAILY, #30 TAB HOLD IF SBP<120 AND HR<60 04/13/18 Hydrochlorothiazide* (Hydrochlorothiazide*) 50 Mg Tab, 50 MG PO DAILY, #30 TAB 04/13/18 Valproic Acid* (Valproic Acid* Liq) 250 Mg/5 Ml Syrup, 5 ML PO Q9PM, ML 04/13/18 Valproic Acid* (Valproic Acid* Liq) 250 Mg/5 Ml Syrup, 2.5 ML PO Q9AM, ML 04/13/18 Nitroglycerin* (Nitroglycerin* SL) 0.4 Mg Tab.subl, 0.4 MG SL Q5MIN PRN for CHEST PAIN, BOTTLE 04/13/18 Multivitamin with Minerals (Multivitamins with Minerals) 1 Each Tablet, 1 EACH PO Q9AM, TAB 04/13/18 Amlodipine Besylate* (Norvasc*) 5 Mg Tablet, 5 MG PO Q9AM, TAB HOLD IF SBP<118 04/13/18 Amiodarone Hcl* (Amiodarone Hcl*) 100 Mg Tablet, 100 MG PO QHS, #30 TAB HOLD IF HR<60 04/13/18 Na Phos,M-B/Na Phos,Di-Ba (Fleet Enema Extra) 230 Ml Enema, 230 ML RC NEEDED, ENEMA 04/13/18 Acetaminophen* (Tylenol*) 325 Mg Tablet, 650 MG PO Q4H PRN for MILD PAIN LEVEL 1-3, TAB AND FEVER>100F 04/13/18 Magnesium Hydroxide* (Milk Of Magnesia*) 400 Mg/5 Ml Oral.susp, 30 ML PO QHS PRN for NEEDED, ML 04/13/18 Bisacodyl* (Bisacodyl*) 5 Mg Tablet.dr, 10 MG PO DAILY PRN for CONSTIPATION, TAB 04/13/18 Primary Care Provider Antelmo Figueroa MD Pending Labs Laboratory Tests Test 08/05/18 17:52 08/06/18 00:22 08/06/18 05:01 08/06/18 05:59 Bedside 121 174 167 Glucose mg/dL (70-220) mg/dL (70-220) mg/dL (70-220) Blood Urea 25 Nitrogen mg/dl (7-20) Creatinine 0.51 mg/dl (0.61-1. 24) Test 08/06/18 08:21 08/06/18 12:01 Bedside 181 163 Glucose mg/dL (70-220) mg/dL (70-220) COLE LOWE Aug 06, 2018 16:38
[2018-08-06 20:35] VITALS: BP 117/64; PULSE 83; RESP 18
== END 2018-08-06 22:05 | DRG 853 ==
LOC: E/R 19:55 → TEL 22:41 → 2NE 07-28 17:38 → PP2 07-28 17:48
PROVIDERS: ADMIT Internal Medicine; ATTEND Internal Medicine
PROC: 0JBR0ZZ Excision of Left Foot Subcutaneous Tissue and Fascia, Open Approach (ICD-10-PCS; 2018-07-31)
PROC: 0JBR0ZZ Excision of Left Foot Subcutaneous Tissue and Fascia, Open Approach (ICD-10-PCS; 2018-07-31)
PROC: 0JBQ0ZZ Excision of Right Foot Subcutaneous Tissue and Fascia, Open Approach (ICD-10-PCS; 2018-07-31)
PROC: 0QBL0ZZ Excision of Right Tarsal, Open Approach (ICD-10-PCS; 2018-07-31)
PROC: 0QBL0ZZ Excision of Right Tarsal, Open Approach (ICD-10-PCS; 2018-07-31)
PROC: 0KBV0ZZ Excision of Right Foot Muscle, Open Approach (ICD-10-PCS; 2018-07-31)
PROC: 0QBN0ZZ Excision of Right Metatarsal, Open Approach (ICD-10-PCS; 2018-07-31)
PROC: 0JBQ0ZZ Excision of Right Foot Subcutaneous Tissue and Fascia, Open Approach (ICD-10-PCS; 2018-07-31)
PROC: 0KBW0ZZ Excision of Left Foot Muscle, Open Approach (ICD-10-PCS; principal; 2018-07-31 19:30)
DX: A41.9 Sepsis, unspecified organism (principal); L89.153 Pressure ulcer of sacral region, stage 3; J69.0 Pneumonitis due to inhalation of food and vomit; J96.01 Acute respiratory failure with hypoxia; R53.2 Functional quadriplegia; L89.894 Pressure ulcer of other site, stage 4; L89.614 Pressure ulcer of right heel, stage 4; E44.0 Moderate protein-calorie malnutrition; L03.115 Cellulitis of right lower limb; M86.171 Other acute osteomyelitis, right ankle and foot; E11.52 Type 2 diabetes mellitus with diabetic peripheral angiopathy with gangrene; E11.40 Type 2 diabetes mellitus with diabetic neuropathy, unspecified; I48.0 Paroxysmal atrial fibrillation; R13.10 Dysphagia, unspecified; D64.9 Anemia, unspecified; F03.90 Unspecified dementia, unspecified severity, without behavioral disturbance, psychotic disturbance, mood disturbance, and anxiety; G40.909 Epilepsy, unspecified, not intractable, without status epilepticus; F41.9 Anxiety disorder, unspecified; K21.9 Gastro-esophageal reflux disease without esophagitis; I10 Essential (primary) hypertension; N40.0 Benign prostatic hyperplasia without lower urinary tract symptoms; B95.62 Methicillin resistant Staphylococcus aureus infection as the cause of diseases classified elsewhere; E11.42 Type 2 diabetes mellitus with diabetic polyneuropathy; Z74.01 Bed confinement status; M24.562 Contracture, left knee; M24.561 Contracture, right knee; M24.559 Contracture, unspecified hip; Z93.1 Gastrostomy status; Z66 Do not resuscitate
CPT/HCPCS: 36415; 71045; 73630; 80048; 80053; 80061; 80164; 80202; 81001; 82550; 82553; 82565; 82962; 83036; 83605; 83735; 84443; 84484; 84520; 85025; 85049; 85610; 85651; 85670; 85730; 86140; 87070; 87075; 87081; 87086; 87102; 88304; 88311; 93005; 93308; 93922; 96361; 96365; 96375; J0692; J1650; J1815; J2250; J2270; J2795; J3010; J3370; J3480; J7030; J7050